=== PATIENT | female | born 1950 | race Caucasian/White ===

== ENCOUNTER 2017-11-18 09:09 | Emergency (ER) | payer MEDICARE, MEDICAID ==
[~2017-11-18] VITALS: Ht 160 cm; Wt 142.0 kg
[~2017-11-18 09:09] MED LIST: ACTOS; ACTOS15 MG; ACTOS15 MG PO; ALLP100T PO; AMLO10TA2 PO; AMLO10TA82 PO; AMLO5TAB2; ASP81TEC PO; ASPI-875 PO; ASPI-983 PO; AZIT-21 PO; CALCIUM; D50KC PO; DOXA1TAB2 PO; ERGO50006 PO; FAMO20TA5 PO; FEBU40TA PO; FERR325T18 PO; FURO-125 PO; INSU100C4 SQ; INSU100V13 SQ; INSU100V3; INSU100V3 SC; INSU100V3 SQ; INSU100V5 SQ; INSU100V6; INSU100V6 SQ; LEVO500T80 PO; LISI40TA PO; LORA10CA PO; LORA10TA7 PO; LOVA10TA; LOVA20TA2 PO; LOVA20TA63 PO; METO-272 PO; METO-395 PO; METO100T12 PO; METO50TA7 PO; NF-ESOM40C PO; OXB5T PO; OXB5TCR; OXYB5TAB9 PO; PARI1CAP PO; PARI1CAP3 PO; PEDI18TA2 PO; PIOG15TA2 PO; PIOG15TA22 PO; PIOG15TA9 PO; SERT100T8 PO; SODI650T PO; SODIUM BICARB; SODIUM BICARBONATE PO; VITAMIN D; VITAMIN D 1.25MG PO; [UNRECOGNIZED DRUG - CODE]
[2017-11-18 09:34] LABS: BASOPHILS # (AUTO) 0.1 10^3/uL (0.0-0.1); BASOPHILS % (AUTO) 1 % (0-10); EOSINOPHILS # (AUTO) 0.2 10^3/uL (0.0-0.3); EOSINOPHILS % (AUTO) 2 % (0-10); HEMATOCRIT 36 % (35-52); HEMOGLOBIN 12.2 G/DL (11.5-16.0); LYMPHOCYTES # (AUTO) 2.5 X 10^3 (1.0-4.0); LYMPHOCYTES % (AUTO) 24 % (12-44); MEAN CORPUSCULAR HEMOGLOBIN 31 PG (25-34); MEAN CORPUSCULAR HGB CONC 34 G/DL (32-36); MEAN CORPUSCULAR VOLUME 91 FL (80-99); MEAN PLATELET VOLUME 10.7 FL (7.4-10.4); MONOCYTES % (AUTO) 9 % (0-12); NEUTROPHILS # (AUTO) 6.8 X 10^3 (1.8-7.8); NEUTROPHILS % (AUTO) 64 % (42-75); PLATELET COUNT 196 10^3/uL (130-400); RED BLOOD COUNT 3.91 10^6/uL (4.35-5.85); RED CELL DISTRIBUTION WIDTH 17.2 % (10.0-14.5); WHITE BLOOD COUNT 10.5 10^3/uL (4.3-11.0)
[2017-11-18 09:47] LABS: INR 1.4 (0.8-1.4); PROTHROMBIN TIME PATIENT 16.9 SEC (12.2-14.7)
[2017-11-18 09:56] LABS: ALANINE AMINOTRANSFERASE 14 U/L (0-55); ALBUMIN 3.5 GM/DL (3.2-4.5); ALKALINE PHOSPHATASE 74 U/L (40-136); BILIRUBIN,TOTAL 1.1 MG/DL (0.1-1.0); BUN/CREATININE RATIO 5; CALCIUM 8.4 MG/DL (8.5-10.1); CARBON DIOXIDE 30 MMOL/L (21-32); CHLORIDE 95 MMOL/L (98-107); CREATININE SERUM 1.97 MG/DL (0.60-1.30); GFR ESTIMATED 25; GLUCOSE 256 MG/DL (70-105); MAGNESIUM 1.8 MG/DL (1.8-2.4); POTASSIUM 3.3 MMOL/L (3.6-5.0); SODIUM 134 MMOL/L (135-145); TOTAL PROTEIN 6.1 GM/DL (6.4-8.2)
--- NOTE | 2017-11-18 10:12 | Diagnostic Imaging Report ---
Clinical indication: Patient with chest pain times approximately 1 week with recent worsening through into the night. Exam: Portable chest x-ray upright view. Comparisons: Chest x-ray dated 09/30/2017. Findings: Again seen are mild low lung volumes. There is improved aeration of both lungs. There may be mild bibasilar atelectasis. Otherwise, the lungs are clear. There is no pleural effusion or pneumothorax. Cardiac silhouette is upper limits of normal for portable projection. Pulmonary vasculature is within normal limits. There is interval placement of a vascular access catheter overlying the right chest with tip in the mid superior vena cava. Impression: 1: Interval improved aeration of both lungs with suspected mild bibasilar atelectasis. 2: Interval placement of vascular access catheter overlying the right chest with tip in the mid superior vena cava. 3: Cardiac silhouette is within normal limits for a portable projection. Dictated by: Dictated on workstation # [id number]
--- NOTE | 2017-11-18 10:42 | ED Chest Pain ---
General Chief Complaint: Chest Pain Stated Complaint: CHEST PAIN Nursing Triage Note: pt reports intermittent cp x 1 week. pt reports had episode today that radiated to her back while at dialysis. pt had an hour and a half left of her dialysis treatment. Nursing Sepsis Screen: No Definite Risk Source: patient, old records Exam Limitations: no limitations History of Present Illness Date Seen by Provider: Nov 18, 2017 Time Seen by Provider: 09:10 Initial Comments This 67-year-old woman presents to the emergency room from dialysis where she had worsening chest pain. She has known coronary artery disease and has been having intermittent chest pain for about a week. Dialysis was aborted due to worsening pain. Pain radiates to her jaw and her back. Patient also has a new fistula site on the left upper arm with fani still in place. She has marketed erythema and tenderness around this incision site. There is a very small area on the distal end of that is moist. This was cultured. The erythema at the surgical site started yesterday. She also reports an episode of vomiting associated with chest pain in the past few days. She denies any fever or cough. Dr. Ghosh in [place] as her primary zoogler. Her gerentological physiotherapist is Dr. Perez at [facility] in [place]. Patient was given aspirin 325 mg by EMS. She is not having chest pain on arrival. She has atrial fibrillation and takes Eliquis. She is dependent on supplemental oxygen at 3 L/m. Allergies and Home Medications Allergies Coded Allergies: Iodinated Contrast- Oral and IV Dye (Verified Allergy, Intermediate, ) nalbuphine (Verified Allergy, Intermediate, 11/05/07) pregabalin (Verified Allergy, Intermediate, 11/05/07) valdecoxib (Unverified Allergy, Mild, 12/03/07) iodine (Verified Allergy, Unknown, 03/14/06) sitagliptin (Unverified Allergy, Unknown, HIVES, 09/29/17) Home Medications Amlodipine Besylate 10 Mg Tablet, 10 MG PO DAILY, (Reported) Aspirin 81 Mg Tablet.dr, 81 MG PO DAILY, (Reported) Ergocalciferol (Vitamin D2) 50,000 Unit Capsule, 50,000 UNIT PO Mo, (Reported) Esomeprazole Magnesium 40 Mg Cap, 40 MG PO BID, (Reported) Famotidine 20 Mg Tablet, 20 MG PO DAILY, (Reported) Febuxostat 40 Mg Tablet, 40 MG PO DAILY, (Reported) Furosemide 20 Mg Tablet, 20 MG PO Q48H, (Reported) Insulin Determir 1,000 Units/10 Ml Soln, 53 UNITS SQ DAILY, (Reported) Insulin Determir 1,000 Units/10 Ml Soln, 40 UNITS SQ HS, (Reported) Levofloxacin 500 Mg Tablet, 500 MG PO DAILY, (Reported) FILLED 09/27/17 #7 FOR A 7 DAY THERAPY Loratadine 10 Mg Tablet, 10 MG PO DAILY, (Reported) Lovastatin 20 Mg Tablet, 20 MG PO HS, (Reported) Metoprolol Tartrate 100 Mg Tablet, 100 MG PO BID, (Reported) Oxybutynin Chloride 5 Mg Tablet, 5 MG PO TID, (Reported) Paricalcitol 1 Mcg Capsule, 1 MCG PO DAILY, (Reported) Pedi Mv No.79/Ferrous Fumarate 18 Mg Tab.chew, 18 MG PO DAILY, (Reported) Pioglitazone HCl 15 Mg Tablet, 15 MG PO DAILY, (Reported) Sertraline HCl 100 Mg Tablet, 100 MG PO HS, (Reported) Sodium Bicarbonate 650 Mg Tablet, 1,300 MG PO BID, (Reported) TAKES 2 (650 MG) TABLETS Patient Home Medication List Home Medication List Reviewed: Yes Review of Systems Constitutional: no symptoms reported EENTM: No Symptoms Reported Respiratory: No Symptoms Reported Cardiovascular: See HPI Gastrointestinal: No Symptoms Reported Genitourinary: See HPI Musculoskeletal: no symptoms reported Skin: see HPI Psychiatric/Neurological: No Symptoms Reported Endocrine: No Symptoms Reported Hematologic/Lymphatic: See HPI Past Wdhpxix-[id number]-Woqwld Hx Patient Social History Alcohol Use: Denies Use Recreational Drug Use: No Smoking Status: Never a Smoker Recent Foreign Travel: No Contact w/Someone Who Travel: No Recent Infectious Disease Expo: No Recent Hopitalizations: Yes (been to ER, ) Physical Abuse: No Sexual Abuse: No Mistreated: No Fear: No Immunizations Up To Date Tetanus Booster (TDap): Less than 5yrs PED Vaccines UTD: No Date of Pneumonia Vaccine: Jun 07, 2017 Date of Influenza Vaccine: Jun 07, 2017 Seasonal Allergies Seasonal Allergies: Yes Surgeries History of Surgeries: Yes (back, r knee, carpal tunnel, stent in l kidney, fistula left upper extremity) Surgeries: Abdominal, Bowel Surgery, Brain Shunt, Cardiac, Gallbladder, Neurological, Orthopedic, Renal, Vascular Surgery Respiratory History of Respiratory Disorde: Yes (O2 DEPENDENT AT 3L/NC CONTINUOUSLY) Respiratory Disorders: Asthma, COPD Currently Using CPAP: No Cardiovascular History of Cardiac Disorders: Yes Cardiac Disorders: Atrial Fibrillation, Coronary Artery Disease, High Cholesterol, Hypertension Neurological History of Neurological Disord: Yes Neurological Disorders: Stroke 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 System Hx 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 Disorders: No Sexually Transmitted Disease: No HIV/AIDS: No Female 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 Disorders: 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 Genitourinary History of Genitourinary Disor: Yes (HAS LEFT ARM AV FISTULA) Genitourinary Disorders: Kidney Stones, Renal Failure, Dialysis Gastrointestinal History of Gastrointestinal Di: Yes Gastrointestinal Disorders: Gastroesophageal Reflux, Polyps, Hiatal Hernia Musculoskeletal History of Musculoskeletal Dis: Yes Musculoskeletal Disorders: Degenerate Disk Disease, Arthritis, Back Injury, Chronic Back Pain, Gout Endocrine History of Endocrine Disorders: Yes (MORBID OBESITY) Endocrine Disorders: Diabetes, Insulin dep HEENT History of HEENT Disorders: Yes HEENT Disorders: Cataract, Tinnitis Loss of Vision: Denies Hearing Impairment: Denies Cancer History of Cancer: No Psychosocial History of Psychiatric Problem: Yes Behavioral Health Disorders: Sleep Difficulties, Depression Suicide Risk Score: 0 Integumentary History of Skin or Integumenta: No Blood Transfusions History of Blood Disorders: No Adverse Reaction to a Blood Tr: No Family Medical History Significant Family History: CVA, Diabetes Family Medial History: Cancer 03 FATHER Family history: Cardiovascular disease 03 FATHER 03 FATHER Family history: Diabetes mellitus 09 SISTER Family history: Gastrointestinal disease 03 MOTHER grandson Kidney disease Myocardial infarction Stroke 09 SISTER Physical Exam Vital Signs Vital Signs - First Documented Capillary Refill : Less Than 3 Seconds General Appearance: No Apparent Distress, WD/WN, Obese HEENT: PERRL/EOMI, Normal ENT Inspection Neck: Normal Inspection Respiratory: Lungs Clear, Normal Breath Sounds, No Accessory Muscle Use, No Respiratory Distress Cardiovascular: No Edema, No Murmur, Irregularly Irregular, Tachycardia Gastrointestinal: Non Tender, Soft Extremity: No Pedal Edema, Other (erythema and tenderness around the left upper arm incision with minimal drainage at the distal end. 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 Norm as Tested Skin: Warm/Dry, Erythema (see above) Focused Exam Evaluation Lactate Level Laboratory Tests 11/18/17 09:21: Lactic Acid Level 2.27*H 11/18/17 11:28: Lactic Acid Level 1.54 Lactic Acid Level Laboratory Tests Test 11/18/17 09:21 11/18/17 11:28 Lactic Acid Level 2.27 MMOL/L (0.50-2.00) *H 1.54 MMOL/L (0.50-2.00) Progress/Results/Core Measures Results/Orders Lab Results Laboratory Tests Test 11/18/17 09:21 11/18/17 11:28 Range/Units White Blood Count 10.5 4.3-11.0 10^3/uL Red Blood Count 3.91 L 4.35-5.85 10^6/uL Hemoglobin 12.2 11.5-16.0 G/DL Hematocrit 36 35-52 % Mean Corpuscular Volume 91 80-99 FL Mean Corpuscular Hemoglobin 31 25-34 PG Mean Corpuscular Hemoglobin Concent 34 32-36 G/DL Red Cell Distribution Width 17.2 H 10.0-14.5 % Platelet Count 196 130-400 10^3/uL Mean Platelet Volume 10.7 H 7.4-10.4 FL Neutrophils (%) (Auto) 64 42-75 % Lymphocytes (%) (Auto) 24 12-44 % Monocytes (%) (Auto) 9 0-12 % Eosinophils (%) (Auto) 2 0-10 % Basophils (%) (Auto) 1 0-10 % Neutrophils # (Auto) 6.8 1.8-7.8 X 10^3 Lymphocytes # (Auto) 2.5 1.0-4.0 X 10^3 Monocytes # (Auto) 1.0 0.0-1.0 X 10^3 Eosinophils # (Auto) 0.2 0.0-0.3 10^3/uL Basophils # (Auto) 0.1 0.0-0.1 10^3/uL Prothrombin Time 16.9 H 12.2-14.7 SEC INR Comment 1.4 0.8-1.4 Activated Partial Thromboplast Time 42 H 24-35 SEC Sodium Level 134 L 135-145 MMOL/L Potassium Level 3.3 L 3.6-5.0 MMOL/L Chloride Level 95 L 98-107 MMOL/L Carbon Dioxide Level 30 21-32 MMOL/L Anion Gap 9 5-14 MMOL/L Blood Urea Nitrogen 10 7-18 MG/DL Creatinine 1.97 H 0.60-1.30 MG/DL Estimat Glomerular Filtration Rate 25 BUN/Creatinine Ratio 5 Glucose Level 256 H 70-105 MG/DL Lactic Acid Level 2.27 *H 1.54 0.50-2.00 MMOL/L Calcium Level 8.4 L 8.5-10.1 MG/DL Magnesium Level 1.8 1.8-2.4 MG/DL Total Bilirubin 1.1 H 0.1-1.0 MG/DL Aspartate Amino Transf (AST/SGOT) 20 5-34 U/L Alanine Aminotransferase (ALT/SGPT) 14 0-55 U/L Alkaline Phosphatase 74 40-136 U/L Myoglobin 147.0 H 10.0-92.0 NG/ML Troponin I < 0.30 <0.30 NG/ML C-Reactive Protein High Sensitivity 1.15 H 0.00-0.50 MG/DL Total Protein 6.1 L 6.4-8.2 GM/DL Albumin 3.5 3.2-4.5 GM/DL My Orders Orders - SONDRA POE MD Cbc With Automated Diff (11/18/17:19) Magnesium (11/18/17 09:19) Chest 1 View, Ap/Pa Only (11/18/17:19) Ekg Tracing (11/18/17:19) Cardiac Profile 1 (11/18/17:19) Comprehensive Metabolic Panel (11/18/17 09:19) Myoglobin Serum (11/18/17:19) Protime With Inr (11/18/17:) Partial Thromboplastin Time (11/18/17:19) O2 (11/18/17:19) Monitor-Rhythm Ecg Trace Only (11/18/17:19) Saline Lock/Iv-Start (11/18/17:19) Hs C Reactive Protein (11/18/17:19) Blood Culture (11/18/17 09:19) Wound Culture (11/18/17:19) Lactic Acid Analyzer (11/18/17 09:19) Clindamycin Injection (Cleocin Injection (11/18/17 10:45) Clindamycin Injection (Cleocin Injection (11/18/17 11:15) Clindamycin 900 Mg/50 Ml Ivpb (Cleocin P (11/18/17 11:15) Medications Given in ED Current Medications Medications Dose Ordered Sig/Alfonso Route Start Time Stop Time Status Last Admin Dose Admin Clindamycin Phosphate/Dextrose 50 ml @ 100 mls/hr ONCE ONCE IV 11/18/17 11:15 11/18/17 11:44 DC 11/18/17 11:21 100 MLS/HR Vital Signs/I&O Vital Sign - Last 12Hours 11/18/17 11/18/17 11/18/17 11/18/17 09:33 09:33 09:33 12:51 Temp 97.0 97.1 Pulse 102 65 Resp 14 20 B/P (MAP) 108/80 (89) 139/76 Pulse Ox 98 98 97 O2 Delivery Nasal Cannula Nasal Cannula Nasal Cannula Nasal Cannula O2 Flow Rate 3.00 3.0 2.00 3.00 Blood Pressure Mean: 89 Progress Note : Time: 11:51 Progress Note Chest pain protocol was followed. EKG was negative for ischemia and troponin was negative. Blood cultures were obtained and clindamycin was started for initial treatment of cellulitis in the left upper extremity. Wound culture was collected prior to antibiotics. Patient remained free of chest pain during her ER stay. ECG Initial ECG Impression Date: Nov 18, 2017 Initial ECG Impression Time: 09:19 Initial ECG Rate: 106 Initial ECG Rhythm: A Fib/Flutter Initial ECG Impression: Atrial Fibrillation w/RVR Comment Atrial fibrillation with no acute ST elevation or depression. Mild tachycardia. LVH by automated read. Borderline prolonged QT interval. Diagnostic Imaging Diagonstic Imaging: Xray Plain Films/CT/US/NM/MRI: chest Comments Chest x-ray viewed by me and report reviewed. See report below: NAME: DANELLE GAN [facility] REC#: [id number] PT STATUS: REG ER : 1950 PHYSICIAN: SONDRA POE MD ADMIT DATE: 11/18/17/ER Signed Date of Exam:11/18/17 CHEST 1 VIEW, AP/PA ONLY Clinical indication: Patient with chest pain times approximately 1 week with recent worsening through into the night. Exam: Portable chest x-ray upright view. Comparisons: Chest x-ray dated 09/30/2017. Findings: Again seen are mild low lung volumes. There is improved aeration of both lungs. There may be mild bibasilar atelectasis. Otherwise, the lungs are clear. There is no pleural effusion or pneumothorax. Cardiac silhouette is upper limits of normal for portable projection. Pulmonary vasculature is within normal limits. There is interval placement of a vascular access catheter overlying the right chest with tip in the mid superior vena cava. Impression: 1: Interval improved aeration of both lungs with suspected mild bibasilar atelectasis. 2: Interval placement of vascular access catheter overlying the right chest with tip in the mid superior vena cava. 3: Cardiac silhouette is within normal limits for a portable projection. Dictated by: Dictated on workstation # [id number] Dict: 11/18/17 0949 Trans: 11/18/17 1029 AC [id number] Interpreted by: HAKEEM PEREZ MD Electronically signed by: HAKEEM PEREZ MD 11/18/17 1029 Departure Impression Impression: Primary Impression: Chest pain Qualified Codes: R07.9 - Chest pain, unspecified Additional Impressions: Cellulitis of left arm End stage renal failure on dialysis History of coronary artery disease Atrial fibrillation Qualified Codes: I48.2 - Chronic atrial fibrillation Disposition: 02 XFER SHT-TRM HOSP Condition: Stable Transfer Time Spoke to Accepting Phy: 11:20 Transfer Progress Notes Case reviewed with Dr. Pimentel, hospitalist at [facility] who accepts transfer. Transfer Time: 12:50 Transfer Facility: [facility] Method of Transfer: EMS Departure-Patient Inst. Referrals: [facility] (PCP) Primary Care Physician JOSEP GONG (Family) Primary Care Physician SONDRA POE MD Nov 18, 2017 10:42
[2017-11-18] MEDS ORDERED: CLINDAMYCIN 900 MG/6ML (CLEOCIN) VIAL IV ONE ×2 (10:45→11:15)
[2017-11-18] MEDS ORDERED: CLINDAMYCIN 900 MG/50 ML IVPB 50 ML IV ONE (11:15)
[2017-11-18 12:51] VITALS: BP 139/76
--- OUTSIDE RECORDS SUMMARY | 2017-11-19 04:34 | XMS REPORT ---
Author Author JOSEP GONG [facility] Address [address] [place] [address] Care Team Providers Care Line Walker Name Role Phone GNOGJOSEP ARNETT Unavailable PROBLEMS Type Condition ICD9-CM Code KHH31-HT Code Onset Dates Condition Status SNOMED Code Problem Type 2 diabetes mellitus with diabetic nephropathy E11.21 Active 946738925 Problem Chronic obstructive pulmonary disease with acute exacerbation J44.1 Active 689151799 Problem Chronic bronchitis, unspecified chronic bronchitis type J42 Active 52891745 Problem Paroxysmal atrial fibrillation I48.0 Active 129535526 Problem Sprain of right knee, unspecified ligament, initial encounter S83.91XA Active 51889225 Problem Chronic congestive heart failure, unspecified heart failure type I50.9 Active 12363431 Problem Abscess L02.91 Active 453597113 Problem Venous (peripheral) insufficiency I87.2 Active 24074015 Problem Chronic obstructive pulmonary disease, unspecified COPD type J44.9 Active 24692908 Problem Vitamin D deficiency, unspecified E55.9 Active 92839414 Problem Body mass index (BMI) of 40.0-44.9 in adult Z68.41 Active 709401134 Problem Obesity, unspecified E66.9 Active 07769956712928 Problem Essential hypertension I10 Active 72494349 Problem Hyperlipidemia, unspecified E78.5 Active 64779002 Problem Right knee pain M25.561 Active 13393001 Problem Type 2 diabetes mellitus with other diabetic kidney complication E11.29 Active 901523732 Problem Anemia of renal disease D63.1 Active 133843008 Problem Proteinuria R80.9 Active 94602287 Problem Chronic renal disease, unspecified stage N18.9 Active 237681026 Problem Renal osteodystrophy N25.0 Active 79118933 Problem Chronic kidney disease, stage IV (severe) N18.4 Active 896178596 Problem Essential (primary) hypertension I10 Active 99206541 ALLERGIES No Information ENCOUNTERS Encounter Location Date Diagnosis [facility] [id number] [place] [address] [id number] Oct, Body mass index (BMI) 70 or greater, adult Z68.45 ; Type 2 diabetes mellitus with other diabetic kidney complication E11.29 ; Chronic obstructive pulmonary disease with acute exacerbation J44.1 and Paroxysmal atrial fibrillation I48.0 [facility] [id number] [place] [address] [id number] Oct, [address] [id number] Oct, Type 2 diabetes mellitus with diabetic nephropathy E11.21 ; Chronic renal disease, unspecified stage N18.9 ; Chronic congestive heart failure, unspecified heart failure type I50.9 and Chronic obstructive pulmonary disease with acute exacerbation J44.[address] [id number] Sep, [address] [id number] Sep, [address] [id number] Sep, [facility] [address] [address] Sep, Type 2 diabetes mellitus with diabetic nephropathy E11.[address] [id number] Aug, Influenza J11.1 and Essential (primary) hypertension I10 [facility] [address] [address] Aug, [address] [id number] Jul, Type 2 diabetes mellitus with diabetic nephropathy E11.21 ; Essential ( primary) hypertension I10 and Chronic obstructive pulmonary disease, unspecified COPD type J44.9 [facility] [id number] [place] [address] [id number] Jun, Dental caries K02.9 [id number] [place] [address] [id number] May, Cough R05 ; Chronic obstructive pulmonary disease, unspecified COPD type J44.9 ; Shortness of breath R06.02 ; Obesity, unspecified E66.9 ; Body mass index (BMI) of 40.0-44.9 in adult Z68.41 and Encounter for immunization Z23 [facility] [address] [id number] May, Dental examination Z01.20 [facility] [id number] [place] [address] [id number] May, Essential hypertension I10 [id number] [place] [address] [id number] Apr, Anemia of renal disease D63.1 ; Type 2 diabetes mellitus with other diabetic kidney complication E11.29 ; Vitamin D deficiency, unspecified E55.9 and Chronic renal disease, unspecified stage N18.9 [facility] [address] [address] Mar, [id number] [place] [address] [id number] Mar, Type 2 diabetes mellitus with other diabetic kidney complication E11.29 ; Essential hypertension I10 ; Chronic renal disease, unspecified stage N18.9 and Chronic obstructive pulmonary disease with acute exacerbation J44.1 [facility] [address] [place] [address] [id number] Feb, [address] [place] [address] [id number] Feb, Chronic renal disease, unspecified stage N18.9 ; Essential (primary) hypertension I10 and Type 2 diabetes mellitus with other diabetic kidney complication E11.29 [facility] [id number] [place] [address] [id number] Feb, Type 2 diabetes mellitus with other diabetic kidney complication E11.29 ; Chronic kidney disease, stage IV (severe) N18.4 ; Renal osteodystrophy N25.0 ; Anemia of renal disease D63.1 and Essential (primary) hypertension I10 [facility] [address] [place] [address] [id number] December, [id number] [place] [address] [id number] December, Chronic obstructive pulmonary disease with acute exacerbation J44.1 ; Essential (primary) hypertension I10 ; Low back pain M54.5 and Right knee pain M25.561 [address] [place] [address] [id number] Nov, Chronic renal disease, unspecified stage N18.9 ; Essential hypertension I10 ; Type 2 diabetes mellitus with other diabetic kidney complication E11.29 and Chronic obstructive pulmonary disease with acute exacerbation J44.1 [id number] [place] [address] [id number] Nov, Chronic renal disease, unspecified stage N18.9 ; Hyperlipidemia, unspecified E78.5 and Essential hypertension I10 [id number] [place] [address] [id number] Oct, Chronic bronchitis, unspecified chronic bronchitis type J42 and Type 2 diabetes mellitus with diabetic nephropathy E11.21 [id number] [place] [address] [id number] Sep, Chronic bronchitis, unspecified chronic bronchitis type J42 ; Essential ( primary) hypertension I10 and Type 2 diabetes mellitus with other diabetic kidney complication E11.29 [address] [place] [address] [id number] Sep, Chronic obstructive pulmonary disease with acute exacerbation J44.1 [address] [place] [address] [id number] Aug, Type 2 diabetes mellitus with diabetic nephropathy E11.21 ; Chronic kidney disease, stage IV (severe) N18.4 ; Essential (primary) hypertension I10 and Encounter for immunization Z23 [address] [place] [address] [id number] Aug, Chronic kidney disease, stage IV (severe) N18.4 ; Type 2 diabetes mellitus with diabetic nephropathy E11.21 and Type 2 diabetes mellitus with hyperglycemia E11.65 [address] [place] [address] [id number] May, Anemia of renal disease D63.1 ; Essential (primary) hypertension I10 ; Renal osteodystrophy N25.0 ; Proteinuria R80.9 ; Chronic kidney disease, stage IV (severe) N18.4 and Type 2 diabetes mellitus with other diabetic kidney complication E11.29 [facility] [id number] [place] [address] [id number] Mar, Type 2 diabetes mellitus with other diabetic kidney complication E11.29 ; Essential hypertension I10 ; Chronic renal disease, unspecified stage N18.9 and TMJ (temporomandibular joint disorder) M26.60 [facility] [place] [id number] [place] [address] [id number] Jan, Chronic kidney disease, stage IV (severe) N18.4 and Hyperlipidemia, unspecified E78.5 [facility] [place] [id number] [place] [address] [id number] December, Type 2 diabetes mellitus with other diabetic kidney complication E11.29 ; Abscess L02.91 and Chronic kidney disease, stage IV (severe) N18.4 [facility] [place] [id number] [place] [address] [id number] December, Abscess L02.91 [facility] [place] [id number] [place] [address] [id number] December, [facility] [id number] [place] [address] [id number] Oct, Renal osteodystrophy N25.0 ; Chronic kidney disease, stage IV (severe) N18.4 and Vitamin D deficiency E55.9 [facility] [id number] [place] [address] [id number] Oct, [facility] [id number] [place] [address] [id number] Sep, Type 2 diabetes mellitus with other diabetic kidney complication E11.29 ; Essential hypertension I10 and Chronic airway obstruction, not elsewhere classified J44.9 [facility] [id number] [place] [address] [id number] Sep, [facility] [id number] [place] [address] [id number] Aug, [facility] [id number] [place] [address] [id number] Jul, [facility] [address] [id number] Jul, [address] [place] [address] [id number] Jul, Chronic kidney disease, stage IV (severe) N18.4 ; Renal osteodystrophy N25.0 and Proteinuria R80.9 [facility] [id number] [address] Jul, [address] [id number] [id number] Jun, [id number] [place] [address] [id number] Jun, [address] [place] [address] [id number] Jun, Diabetes with renal manifestations, type II or unspecified type, uncontrolled 250.42 and Right knee pain M25.561 [id number] [place] [address] May, [address] [place] [address] [id number] May, Abscess L02.91 ; Encounter for immunization Z23 and Sprain of right knee, unspecified ligament, initial encounter S83.91XA [address] [place] [address] [id number] May, Abscess L02.[address] [id number] [id number] May, [address] [place] [address] [id number] Apr, Diabetes with renal manifestations, type II or unspecified type, uncontrolled 250.42 and PPV23 (PNEUMOVAX) DX V03.82 [address] [place] [address] [id number] Mar, [id number] [place] [address] [id number] Mar, Proteinuria 791.0 ; Renal osteodystrophy 588.0 ; Chronic kidney disease, Stage IV (severe) 585.4 ; Benign essential hypertension 401.1 and Vitamin D deficiency 268.9 [facility] [id number] [place] [address] [id number] Feb, Avulsion fracture of ankle 824.8 [facility] [id number] [place] [address] [id number] Feb, [facility] [id number] [place] [address] [id number] Feb, [facility] [address] [id number] Feb, Diabetes with renal manifestations, type II or unspecified type, uncontrolled 250.42 [facility] [id number] [place] [address] [id number] Jan, Diabetes with renal manifestations, type II or unspecified type, uncontrolled 250.42 [facility] [id number] [place] [address] [id number] December, Diabetes with renal manifestations, type II or unspecified type, uncontrolled 250.42 and Unspecified essential hypertension 401.9 [facility] [id number] [place] [address] [id number] December, [facility] [id number] [place] [address] [id number] December, [facility] [id number] [place] [address] [id number] December, Essential hypertension 401.9 [facility] [id number] [place] [address] [id number] Nov, Essential hypertension 401.9 [facility] [id number] [place] [address] [id number] Nov, [facility] [id number] [place] [address] [id number] Nov, [facility] [id number] [place] [address] [id number] Nov, [facility] [id number] [place] [address] [id number] 8853 Nov, [facility] [address] [address] Nov, [facility] [place] [address] [id number] [place] [id number] Oct, [facility] [place] [facility] [address] [id number] [address] Oct, [facility] [place] [address] [id number] [place] [id number] Oct, [facility] [place] [facility] [address] [facility] [id number] [address]- [address] Oct, [facility] [place] [facility] [address] [facility] [id number] [address]- [address] Oct, [facility] [place] [address] [id number] [place] [id number] Oct, [facility] [place] [address] [id number] [place] [id number] Oct, [facility] [place] [facility] [address] [facility] [id number], [place] [address]- [address] Oct, [facility] [place] [facility] [address] [facility] [id number] [address]- [address] Sep, [facility] [place] [address] [id number][place] [id number] Sep, [facility] [place] [address] [id number], [place] [id number] Sep, [facility] [place] [facility] [address] [facility] [id number], [place] [address]- [address] Sep, [facility] [place] [address] [id number], [place] [id number] Aug, [facility] [place] [facility] [address] [facility] [id number] [address]- [address] Aug, [facility] [place] [address] [id number], [place] [id number] Aug, [facility] [place] [facility] [address] [facility] [id number] [address]- 15[address] Aug, [facility] [place] [address] [facility] [id number], [place] [id number] Aug, [facility] [place] [facility] [address] [id number] [address]- [address] Aug, [facility] [place] [facility] [address] [facility] [id number], [place] [address]- 288[address] Aug, [facility] [place] [address] [facility] [id number], [place] [id number] Aug, [facility] [place] [facility] [address] [facility] [id number] [address]- 37[address] Jul, [facility] [place] [facility] [address] [facility] [id number] [address]- 6[address] Jul, [facility] [place] [address] [facility] [id number], [place] [id number] Jul, [facility] [place] [facility] [address], [place] [address]- 47[address] Jul, [facility] [place] [address] [facility] [id number], [place] [id number] Jul, [facility] [place] [facility] [address] [facility] [id number], [place] [address]- 0[address] Jul, [facility] [place] [address] [facility] [id number], [place] [id number] Jul, [facility] [place] [facility] [address] [facility] [id number], [place] [address]- 0696 Jul, [facility] [place] [facility] [address] [facility] [id number] [address]- [address] May, [facility] [address] [id number], [place] [id number] May, [facility] [place] [address] [id number], [place] [id number] May, [facility] [place] [facility] [address] [facility] [id number], [place] [address]- 25[address] May, [facility] [address] [id number], [place] [id number] Apr, [facility] [place] [facility] [address] [facility] [id number], [place] [address]- 28[address] Apr, [facility] [address] [id number] [place] [id number] Mar, [facility] [place] [facility] [address] [facility] [id number] [place] [address]- 5985 Mar, [facility] [place] [facility] [address] [facility] [id number], [place] [address]- 9[address] Mar, [facility] [place] [facility] [address] [facility] [id number] [place] [address]- 1877 Mar, [facility] [address] [id number] [place] [id number] Mar, [facility] [place] [address] [facility] [id number] [place] [id number] Feb, [facility] [place] [facility] [address] [facility] [id number] [address]- 1616 Feb, [facility] [place] [address] [facility] [id number], [place] [id number] Jan, [facility] [place] [facility] [address] [facility] [id number] [place] [address]- 8901 Jan, [facility] [place] [facility] [address] [facility] [id number], [place] [address]- 0492 Jan, [facility] [place] [address] [facility] [id number], [place] [id number] Jan, [facility] [place] [address] [facility] [id number], [place] [id number] Jan, [facility] [place] [facility] [address] [facility] [id number], [place] [address]- 4214 Jan, [facility] [place] [address] [facility] [id number] [place] [id number] December, [facility] [place] [facility] [address] [facility] [id number] [place] [address]- 8726 December, [facility] [place] [facility] [address] [facility] [id number] [address]- 7733 Nov, [facility] [place] [facility] [address] [facility] [id number] [place] [address]- 2546 Nov, [facility] [place] [address] [facility] [id number] [place] [id number] Nov, [facility] [place] [facility] [address] [facility] [id number] [place] [address]- 2546 Nov, [facility] [place] [address] [facility] [id number] [place] [id number] Oct, [facility] [place] [facility] [address] [facility] [id number] [place] [address]- 2546 Oct, [facility] [place] [address] [facility] [id number] [place] [id number] Oct, [facility] [place] [facility] [address] [facility] [id number] [place] [address]- 2546 Oct, [facility] [place] [address] [facility] [id number], [place] [id number] Oct, [facility] [place] [facility] [address] [id number] [address]- 2546 Oct, [facility] [place] [address] [facility] [id number], [place] [id number] Oct, [facility] [place] [facility] [address] [facility] [id number] [address]- 2546 Oct, [facility] [place] [address] [facility] [id number], [place] [id number] Aug, [facility] [place] [facility] [address] [facility] [id number], [place] [address]- 2546 Aug, [facility] [place] [address] [facility] [id number], [place] [id number] Jul, [facility] [place] [facility] [address] [facility] [id number], [place] [address]- 2546 Jul, [facility] [place] [address] [facility] [id number], [place] [id number] Jun, [facility] [place] [facility] [address] [id number] [address]- 25[address] Jun, [facility] [place] [facility] [address] [facility] [id number], [place] [address]- 2546 Jun, [facility] [address] [facility] [id number] [place] [id number] Jun, [facility] [place] [address] [facility] [id number], [place] [id number] May, [facility] [place] [facility] [address] [facility] [id number] [place] [address]- 8376 May, [facility] [place] [facility] [address] [facility] [id number], [place] [address]- 3116 May, [facility] [address] [facility] [id number] [place] [id number] May, [facility] [place] [facility] [address] [id number], [place] [address] 2546 May, [facility] [address] [id number], [place] [id number] May, [facility] [place] [facility] [address] [facility] [id number], [place] [address]- 6376 May, [facility] [address] [id number], [place] [id number] May, [facility] [place] [facility] [address] [id number] [address]- 8106 Apr, [facility] [place] [facility] [address] [facility] [id number], [place] [address]- 5326 Apr, [facility] [address] [facility] [id number], [place] [id number] Apr, [facility] [place] [facility] [address] [facility] [id number] [address]- 2546 Apr, [facility] [place] [facility] [address] [facility] [id number], [place] [address]- 2546 Mar, [facility] [address] [facility] [id number], [place] [id number] Mar, [facility] [address] [facility] [id number], [place] [id number] Feb, [facility] [place] [address] [id number] [place] [id number] Feb, [facility] [place] [address] [id number] [place] [id number] Feb, [facility] [address] [id number] [place] [id number] Jan, [facility] [address] [facility] [id number] [place] [address]- 2062 Jan, [facility] [address] [id number] [place] [id number] Jan, [facility] [address] [id number] [place] [id number] December, [facility] [address] [facility] [id number] [place] [address]- 5301 December, [facility] [address] [id number] [place] [id number] December, [facility] [address] [id number] [place] [id number] December, [facility] [address] [id number] [place] [id number] Nov, [facility] [address] [id number] [place] [id number] Nov, [facility] [address] [facility] [id number] [place] [address]- 1704 Nov, [facility] [address] [id number] [place] [id number] Nov, [facility] [address] [id number] [place] [id number] Oct, [facility] [place] [address] [id number] [place] [id number] Oct, [facility] [address] [id number] [place] [id number] Oct, [facility] [address] [id number] [place] [id number] Oct, [facility] [address] [id number], [place] [id number] Sep, [facility] [address] [id number] [place] [id number] Sep, [facility] [place] [facility] [address] [facility] [id number][place] [address]- 9600 Aug, [facility] [place] [address] [facility] [id number], [place] [address] Aug, [facility] [address] [id number] [place] [id number] Aug, [facility] [address] [id number] [place] [id number] Aug, [facility] [address] [id number] [place] [id number] Jul, [facility] [address] [id number] [place] [id number] Jul, [facility] [id number] [address] Jul, [facility] [address] [facility] [id number] [id number] Jul, [facility] [address] [id number] [place] [id number] Jul, [facility] [id number], [place] [address] Jul, [facility] [address] [facility] [id number][place] [id number] Jul, [facility] [address] [facility] [id number], [place] [address] Jul, [facility] [address] [facility] [id number][place] [id number] Jul, [facility] [address] [id number][place] [id number] Jul, [facility] [address] [facility] [id number][place] [id number] Jul, [facility] [address] [facility] [id number] [place] [address] Jul, [facility] [address] [id number] [place] [id number] Jun, [facility] [place] [facility] [address] [facility] [id number] [address] Jun, [facility] [place] [facility] [address] [facility] [id number], [place] [address] Jun, [facility] [place] [address] [id number][place] [id number] Jun, [facility] [place] [facility] [address] [facility] [place] [id number], [place] [address] Jun, [facility] [place] [facility] [address] [facility] [id number][place] [address] Jun, [facility] [place] [address] [facility] [id number][place] [id number] Jun, [facility] [place] [facility] [address]00565[address], [place] [address] Jun, [facility] [place] [address] [id number], [place] [id number] Jun, [facility] [place] [facility] [address]00565[address], [place] [address] Jun, [facility] [place] [address] [id number][place] [id number] May, [facility] [place] [facility] [address]00565[address], [place] [address] Apr, [facility] [place] [facility] [address] [facility] [id number], [place] [address] Apr, [facility] [place] [address] [id number], [place] [id number] Apr, [facility] [place] [address] [id number], [place] [id number] Apr, [facility] [place] [address] [id number], [place] [id number] 18 Apr, 2012 [facility] [place] [address] [id number], [place] [address] Apr, [facility] [place] [address] [id number] [place] [id number] Apr, [facility] [place] [address] [id number] [place] [id number] Mar, [facility] [place] [address] [id number] [place] [id number] Mar, [facility] [place] [address] [id number] [place] [id number] Mar, [facility] [place] [address] [id number] [place] [id number] Mar, [facility] [place] [address] [id number] [place] [id number] Mar, [facility] [place] [address] [id number] [place] [id number] Mar, [facility] [place] [address] [id number] [place] [id number] Mar, [facility] [place] [address] [id number] [place] [address] Feb, [facility] [address] [id number] [place] [id number] Feb, [facility] [place] [address] [id number] [place] [address] Jan, [facility] [place] [address] [id number] [place] [id number] Jan, [facility] [place] [address] [id number] [place] [id number] Jan, [facility] [place] [address] [id number] [place] [id number] Jan, [facility] [place] [address] [id number] [place] [address] Jan, [facility] [place] [address] [id number] [place] [id number] Jan, [facility] [place] [address] [id number] [place] [id number] December, [facility] [place] [address] [id number] [place] [id number] Nov, [facility] [place] [address] [id number] [place] [id number] Oct, [facility] [place] [address] [id number] [place] [id number] Oct, [facility] [place] [address] [id number] [place] [id number] Oct, [facility] [address] [facility] [place] [id number], [place] [address] Oct, [facility] [place] [address] [id number] [place] [id number] Oct, [facility] [place] [address] [id number] [place] [id number] Oct, [facility] [place] [address] [id number] [place] [id number] Oct, [facility] [address] [id number] [place] [id number] Oct, [facility] [place] [address] [id number] [place] [id number] Oct, [facility] [place] [address] [id number] [place] [id number] Oct, [facility] [address] [id number] [place] [id number] 14 Sep, 2011 [facility] [address]00565100[place] [address] Sep, [facility] [place] [address] [id number] [place] [id number] Sep, [facility] [place] [address] [id number] [place] [id number] Aug, [facility] [place] [address] [id number] [place] [id number] Aug, [facility] [place] [address] [id number] [place] [id number] Aug, [facility] [id number], [place] [address] Aug, [facility] [address] [address] Jul, [facility] [place] [facility] [address] [id number] [place] [address] 12 Jul, 2011 [facility] [place] [facility] [address] [id number] [place] [address] Jul, [facility] [place] [facility] [address] [id number] [place] [address] Jul, [facility] [place] [facility] [address] [id number] [place] [address] Jun, [facility] [place] [facility] [address] [id number] [place] [address] Jun, [facility] [place] [facility] [address] [id number] [place] [address] May, [facility] [place] [facility] [address] [id number] [place] [address]- 39[address] May, [facility] [place] [facility] [address] [id number] [place] [address] December, [facility] [place] [facility] [address] [id number] [place] [address]- [address] December, [facility] [place] [facility] [address] [id number] [place] [address]- [address] Aug, [facility] [place] [facility] [address] [id number] [place] [address]- [address]14 29 Jul, 2010 [facility] [place] [facility] [address] [id number] [place] [address]- [address]30 28 Jul, 2010 [facility] [place] [facility] [address] [id number] [place] [address]- 1665 23 Jul, 2010 [facility] [place] [facility] [address] [id number] [place] [address]- [address] 16 Jul, 2010 [facility] [place] [facility] [address] [id number] [place] [address]- [address] 16 Jul, 2010 [facility] [place] [facility] [id number] [place] [address] 03 Jul, 2010 [facility] [address] [facility] [id number] [place] [address]- [address] 30 Jun, 2010 [facility] [address] [facility] [id number] [place] [address] 30 Jun, 2010 [facility] [address] [facility] [id number] [place] [address]- [address] 29 Jun, 2010 [facility] [address] [facility] [id number] [place] [address]- 9469 23 Jun, 2010 [facility] [address] [facility] [id number] [place] [address]- [address] Jun, [facility] [address] [facility] [id number] [place] [address]- [address] 14 May, 2010 [facility] [id number] [place] [address] December, [facility] [address] [id number] [place] [address] December, [facility] [id number] [place] [address] 74[address] Oct, [facility] [address] [id number] [address]- [address] 31 Jul, 2009 [facility] [address] [id number] [address] 24 Jul, 2009 [facility] [address] [facility] [id number], [place] [address] 254 Jul, [facility] [address] [id number] [address]- [address] 30 Jun, 2009 [facility] [address] [facility] [id number], [place] [address]- [address]67 22 May, 2009 [facility] [address] [id number], [place] [address]- [address] 28 Jun, 2008 IMMUNIZATIONS No Known Immunizations SOCIAL HISTORY Never Assessed REASON FOR VISIT Labs for kidney doctor. milton Ann PLAN OF CARE Activity Details Pending Test PHOSPHORUS VITAL SIGNS MEDICATIONS No Known Medications RESULTS No Results PROCEDURES Procedure Date Ordered Result Body Site GLYCATED HEMOGLOBIN TEST February 20, 2017 LAB NOT BILLED BY [facility] February 20, 2017 VENIPUNCT, ROUTINE* February 20, 2017 INSTRUCTIONS MEDICATIONS ADMINISTERED No Known Medications MEDICAL (GENERAL) HISTORY Type Description Date Medical History Diabetes with renal manifestations, type II or unspecified type, uncontrolled Medical History Unspecified vitamin D deficiency Medical History Chronic airway obstruction, not elsewhere classified Medical History Depressive disorder, not elsewhere classified Medical History Major depressive disorder, recurrent episode, moderate Medical History Unspecified venous (peripheral) insufficiency Medical History Unspecified essential hypertension Medical History stroke--2005 Medical History acid reflux Medical History Chronic kidney disease, stage 4--left ureteric stent placement Medical History vitamin D deficiency Medical History Hyperparathyroidism--DX: 07/02 Medical History chronic pain--Back Medical History Pneumococcal inj--2011 Medical History a-fib Surgical History cholecystectomy 1999 Surgical History colectomy--partial (Dr. Gonzales) for polyps 2008 Surgical History carpal tunnel release--bilateral 1994 Surgical History orthopedic surgery--right knee 2007 Surgical History Back surgery x 2 1986, 2007 Surgical History Left ureteric stent placement due to kidney disease 2011 Surgical History central line placement 09/2017 Hospitalization History surgeries, childbirth Hospitalization History [facility] N/V/D 05/2015 Hospitalization History [facility] influenza 08/2017 Hospitalization History CHF exacerbation 08/2017
--- OUTSIDE RECORDS SUMMARY | 2017-11-19 04:36 | XMS REPORT | Continuity of Care Document ---
Author Author [facility] Organization [facility] Address Unknown Phone Unavailable Allergies Active Description Code Type Severity Reaction Onset Reported/Identified Relationship to Patient Clinical Status Yes iodine [id number] Drug Allergy Unknown N/A 03/14/2006 Yes Iodinated Contrast- Oral and IV Dye [id number] Drug Allergy Moderate N/A Yes nalbuphine [id number] Drug Allergy Moderate N/A 11/05/2007 Yes pregabalin [id number] Drug Allergy Moderate N/A 11/05/2007 Yes valdecoxib [id number] Drug Allergy Mild N/A 12/03/2007 Yes sitagliptin [id number] Drug Allergy Unknown HIVES 09/29/2017 Medications There is no data. Problems Date Dx Coded Attending Type Code Diagnosis Diagnosed By 10/15/2010 Ot 250.00 DIAB LYN WO COMPL, TYPE II OR UNSPEC TY 10/15/2010 Ot 530.19 OTHER ESOPHAGITIS 10/15/2010 Ot 530.3 ESOPHAGEAL STRICTURE 10/15/2010 Ot 553.3 DIAPHRAGMATIC HERNIA 10/15/2010 Ot 585.9 CHRONIC KIDNEY DISEASE, UNSPECIFIED 10/15/2010 Ot 786.50 CHEST PAIN NOS 10/15/2010 Ot 935.1 FOREIGN BODY ESOPHAGUS 10/15/2010 Ot E000.8 OTHER EXTERNAL CAUSE STATUS 10/15/2010 Ot E849.0 ACCIDENT IN HOME 10/15/2010 Ot E915 FB ENTERING OTH ORIFICE 10/15/2010 Ot V58.67 LONG-TERM ( CURRENT) USE OF INSULIN 10/15/2010 Ot V58.69 OT MED,LT, CURRENT USE 01/10/2012 Ot 530.3 ESOPHAGEAL STRICTURE 01/10/2012 Ot 935.1 FOREIGN BODY ESOPHAGUS 01/10/2012 Ot E000.8 OTHER EXTERNAL CAUSE STATUS 01/10/2012 Ot E849.0 ACCIDENT IN HOME 01/10/2012 Ot E915 FB ENTERING OTH ORIFICE 06/26/2013 MONI BURGOS FACC, ALI FACP CCDS Ot 250.40 DIAB W RENAL MANIFEST, TYPE II OR UNSPEC 06/26/2013 MONI BURGOS FACJack, ALI FACP CCDS Ot 414.01 CORONARY ATHEROSCLEROSIS OF [place] CORON 06/26/2013 MONI BURGOS FACC, SHANNON FACP CCDS Ot 583.81 NEPHRITIS NOS IN OTH DIS 06/26/2013 MONI BURGOS FACC, ALI FACP CCDS Ot 585.9 CHRONIC KIDNEY DISEASE, UNSPECIFIED 06/26/2013 MONI BURGOS FACC, ALI FACP CCDS Ot 786.59 CHEST PAIN NEC 06/26/2013 MONI BURGOS FACC, SHANNON FACP CCDS Ot V58.67 LONG-TERM (CURRENT) USE OF INSULIN 06/26/2013 MONI BURGOS FACC, SHANNON GONSALESP CCDS Ot V58.69 [facility] MED,LT,CURRENT USE 02/28/2014 AMEYA MCCOY MD Ot 250.60 DIAB W NEURO MANIFEST, TYPE II OR UNSPEC 02/28/2014 AMEYA MCCOY MD Ot 272.4 HYPERLIPIDEMIA NEC/NOS 02/28/2014 AMEYA MCCOY MD Ot 274.9 GOUT NOS 02/28/2014 AMEYA MCCOY MD Ot 397.0 TRICUSPID VALVE DISEASE 02/28/2014 AMEYA MCCOY MD Ot 403.90 HYPTNSV CHR KID DIS, UNSPEC, W CHR KD ST 02/28/2014 AMEYA MCCOY MD Ot 414.01 CORONARY ATHEROSCLEROSIS OF [place] CORON 02/28/2014 AMEYA MCCOY MD Ot 424.0 MITRAL VALVE DISORDER 02/28/2014 AMEYA MCCOY MD Ot 530.81 ESOPHAGEAL REFLUX 02/28/2014 AMEYA MCCOY MD Ot 536.3 GASTROPARESIS 02/28/2014 AMEYA MCCOY MD Ot 553.3 DIAPHRAGMATIC HERNIA 02/28/2014 AMEYA MCCOY MD Ot 558.9 NONINF GASTROENTERIT NEC 02/28/2014 AMEYA MCCOY MD Ot 585.4 CHRONIC KIDNEY DISEASE, STAGE IV (SEVERE 02/28/2014 AMEYA MCCOY MD Ot 596.51 HYPERTONICITY OF BLADDER 02/28/2014 AMEYA MCCOY MD Ot 716.90 ARTHROPATHY NOS-UNSPEC 02/28/2014 AMEYA MCCOY MD Ot 786.09 RESPIRATORY ABNORM NEC 02/28/2014 AMEYA MCCOY MD, Ot 786.59 CHEST PAIN NEC 02/28/2014 AMEYA MCCOY MD Ot V45.11 RENAL DIALYSIS STATUS 02/28/2014 AMEYA MCCOY MD, Ot V58.67 LONG-TERM (CURRENT) USE OF INSULIN 09/29/2017 SANDER MERLENE L GOLF COURSE MANAGER Ot 786.50 CHEST PAIN NOS 09/29/2017 BAIMA, MERLENE L GOLF COURSE MANAGER Ot 786.50 CHEST PAIN NOS 09/29/2017 SANDER, MERLENE L GOLF COURSE MANAGER Ot 585.9 CHRONIC KIDNEY DISEASE, UNSPECIFIED 09/29/2017 JCARLOSMA, MERLENE L GOLF COURSE MANAGER Ot 786.09 RESPIRATORY ABNORM NEC 09/29/2017 JCARLOSMA, MERLENE L GOLF COURSE MANAGER Ot 786.2 COUGH 09/29/2017 JCARLOSMA, MERLENE L GOLF COURSE MANAGER Ot 403.90 HYPTNSV CHR KID DIS, UNSPEC, W CHR KD ST 09/29/2017 SANDER MERLENE L GOLF COURSE MANAGER Ot 414.00 CORON ATHEROSCLER NOS TYPE VESSEL, NATIV 09/29/2017 SANDER MERLENE L GOLF COURSE MANAGER Ot 585.9 CHRONIC KIDNEY DISEASE, UNSPECIFIED 09/29/2017 JCARLOSMA MERLENE L GOLF COURSE MANAGER Ot 786.09 RESPIRATORY ABNORM NEC 09/29/2017 SANDER MERLENE L GOLF COURSE MANAGER Ot 786.2 COUGH 10/02/2017 AFRICA AMAYA MD Ot E11.9 TYPE 2 DIABETES MELLITUS WITHOUT COMPLIC 10/02/2017 AFRICA AMAYA MD, Ot E66.01 MORBID (SEVERE) OBESITY DUE TO EXCESS CA 10/02/2017 AFRICA AMAYA MD, Ot E78.5 HYPERLIPIDEMIA, UNSPECIFIED 10/02/2017 AFRICA AMAYA MD, Ot E83.41 HYPERMAGNESEMIA 10/02/2017 AFRICA AMAYA MD, Ot I12.9 HYPERTENSIVE CHRONIC KIDNEY DISEASE W ST 10/02/2017 AFRICA AMAYA MD, Ot I25.10 ATHSCL HEART DISEASE OF [place] CORONARY 10/02/2017 AFRICA AMAYA MD, Ot I48.91 UNSPECIFIED ATRIAL FIBRILLATION 10/02/2017 AFRICA AMAYA MD, Ot I50.33 ACUTE ON CHRONIC DIASTOLIC (CONGESTIVE) 10/02/2017 AFRICA AMAYA MD, Ot J44.1 CHRONIC OBSTRUCTIVE PULMONARY DISEASE W 10/02/2017 AFRICA AMAYA MD, Ot J96.00 ACUTE RESPIRATORY FAILURE, UNSP W HYPOXI 10/02/2017 AFRICA AMAYA MD, Ot K21.9 GASTRO-ESOPHAGEAL REFLUX DISEASE WITHOUT 10/02/2017 AFRICA AMAYA MD, Ot K44.9 DIAPHRAGMATIC HERNIA WITHOUT OBSTRUCTION 10/02/2017 AFRICA AMAYA MD, Ot N17.9 ACUTE KIDNEY FAILURE, UNSPECIFIED 10/02/2017 AFRICA AMAYA MD, Ot N18.4 CHRONIC KIDNEY DISEASE, STAGE 4 (SEVERE) 10/02/2017 AFRICA AMAYA MD, Ot Z68.43 BODY MASS INDEX (BMI) 50-59.9 , ADULT 10/02/2017 AFRICA AMAYA MD, Ot Z79.4 SCREW MACHINE HAND (CURRENT) USE OF INSULIN 10/02/2017 AFRICA AMAYA MD, Ot Z99.81 DEPENDENCE ON SUPPLEMENTAL OXYGEN Procedures There is no data. Results Test Result Range A1C - 05/15/17 08:44 HEMOGLOBIN A1c 5.7 % of total Hgb <5.7 PTH (INTACT) - 05/15/17 08:44 CALCIUM 8.8 mg/dL 8.6-10.4 PARATHYROID HORMONE, INTACT 72 pg/mL 14-64 Complete blood count (CBC) with automated white blood cell (WBC) differential - 09/29/17 17:55 Blood leukocytes automated count (number/volume) 8.5 10*3/uL 4.3-11.0 Blood erythrocytes automated count (number/volume) 4.47 10*6/uL 4.35-5.85 Venous blood hemoglobin measurement (mass/volume) 13.2 g/dL 11.5-16.0 Blood hematocrit (volume fraction) 39 % 35-52 Automated erythrocyte mean corpuscular volume 88 [foz_us] 80-99 Automated erythrocyte mean corpuscular hemoglobin (mass per erythrocyte) 30 pg 25-34 Automated erythrocyte mean corpuscular hemoglobin concentration measurement ( mass/volume) 34 g/dL 32-36 Automated erythrocyte distribution width ratio 15.8 % 10.0-14.5 Automated blood platelet count (count/volume) 206 10*3/uL 130-400 Automated blood platelet mean volume measurement 11.0 [foz_us] 7.4-10.4 Automated blood neutrophils/100 leukocytes 74 % 42-75 Automated blood lymphocytes/100 leukocytes 16 % 12-44 Blood monocytes/100 leukocytes 9 % 0-12 Automated blood eosinophils/100 leukocytes 2 % 0-10 Automated blood basophils/100 leukocytes 0 % 0-10 Blood neutrophils automated count (number/volume) 6.3 10*3 1.8-7.8 Blood lymphocytes automated count (number/volume) 1.3 10*3 1.0-4.0 Blood monocytes automated count (number/volume) 0.8 10*3 0.0-1.0 Automated eosinophil count 0.1 10*3/uL 0.0-0.3 Automated blood basophil count (count/volume) 0.0 10*3/uL 0.0-0.1 PT panel in platelet poor plasma by coagulation assay - 09/29/17 17:55 Prothrombin time (PT) in platelet poor plasma by coagulation assay 13.6 s 12.2-14.7 INR in platelet poor plasma or blood by coagulation assay 1.0 0.8-1.4 Activated partial thromboplastin time (aPTT) in platelet poor plasma bycoagulation assay - 09/29/17 17:55 Activated partial thromboplastin time (aPTT) in platelet poor plasma bycoagulation assay 38 s 24-35 Comprehensive metabolic panel - 09/29/17 17:55 Serum or plasma sodium measurement (moles/volume) 141 mmol/L 135-145 Serum or plasma potassium measurement (moles/volume) 3.8 mmol/L 3.6-5.0 Serum or plasma chloride measurement (moles/volume) 107 mmol/L 98-107 Carbon dioxide 23 mmol/L 21-32 Serum or plasma anion gap determination (moles/volume) 11 mmol/L 5-14 Serum or plasma urea nitrogen measurement (mass/volume) 24 mg/dL 7-18 Serum or plasma creatinine measurement (mass/volume) 2.38 mg/dL 0.60-1.30 Serum or plasma urea nitrogen/creatinine mass ratio 10 NRG Serum or plasma creatinine measurement with calculation of estimated glomerular filtration rate 20 NRG Serum or plasma glucose measurement (mass/volume) 122 mg/dL 70-105 Serum or plasma calcium measurement (mass/volume) 9.3 mg/dL 8.5-10.1 Serum or plasma total bilirubin measurement (mass/volume) 0.7 mg/dL 0.1-1.0 Serum or plasma alkaline phosphatase measurement (enzymatic activity/volume) 74 U/L 40-136 Serum or plasma aspartate aminotransferase measurement (enzymatic activity/ volume) 24 U/L 5-34 Serum or plasma alanine aminotransferase measurement (enzymatic activity/volume ) 12 U/L 0-55 Serum or plasma protein measurement (mass/volume) 7.2 g/dL 6.4-8.2 Serum or plasma albumin measurement (mass/volume) 3.2 g/dL 3.2-4.5 Magnesium - 09/29/17 17:55 Magnesium 1.8 mg/dL 1.8-2.4 Serum or plasma creatine kinase measurement (enzymatic activity/volume) - 09/29 17:55 Serum or plasma creatine kinase measurement (enzymatic activity/volume) 233 U/L 29-168 Serum or plasma creatine kinase MB measurement (enzymatic activity/volume) - 17:55 Serum or plasma creatine kinase MB measurement (enzymatic activity/volume) 3.1 ng/mL <6.6 Serum or plasma lithium measurement (moles/volume) - 09/29/17 17:55 BNP level 560.6 pg/mL <100.0 Serum or plasma troponin i.cardiac measurement (mass/volume) - 09/29/17 17:55 Serum or plasma troponin i.cardiac measurement (mass/volume) < ng/ mL <0.30 Blood lactic acid measurement (moles/volume) - 09/29/17 18:55 Blood lactic acid measurement (moles/volume) 0.74 mmol/L 0.50-2.00 Bacterial blood culture - 09/29/17 18:55 Bacterial blood culture NG NR Bacterial blood culture - 09/29/17 19:21 QUANTITY OF GROWTH . NR Bacterial blood culture SEE COMMEN NR Complete urinalysis with reflex to culture - 09/29/17 20:22 Urine color determination YELLOW NRG Urine clarity determination CLEAR NR Urine pH measurement by test strip 5 5-9 Specific gravity of urine by test strip 1.015 1.016- 1.022 Urine protein assay by test strip, semi-quantitative 4+ NEGATIVE Urine glucose detection by automated test strip 1+ NEGATIVE Erythrocytes detection in urine sediment by light microscopy 4+ NEGATIVE Urine ketones detection by automated test strip NEGATIVE NEGATIVE Urine nitrite detection by test strip NEGATIVE NEGATIVE Urine total bilirubin detection by test strip NEGATIVE NEGATIVE Urine urobilinogen measurement by automated test strip (mass/volume) NORMAL NORMAL Urine leukocyte esterase detection by dipstick NEGATIVE NEGATIVE Automated urine sediment erythrocyte count by microscopy (number/high power field) [HPF] NRG Automated urine sediment leukocyte count by microscopy (number/high power field ) [HPF] NRG Bacteria detection in urine sediment by light microscopy MODERATE NRG Squamous epithelial cells detection in urine sediment by light microscopy 10-25 NRG Crystals detection in urine sediment by light microscopy NONE NRG Casts detection in urine sediment by light microscopy NONE NRG Mucus detection in urine sediment by light microscopy NEGATIVE NRG Complete urinalysis with reflex to culture NO NRG Influenza virus A and B antigen detection - 09/29/17 21:18 FLU RESULT NEGATIVE FOR INFLUENZA A AND B ANTIGENS BY IA NRG Sputum Gram stain - 09/29/17 21:30 GRAM STAIN SPUTUM AND MIXED BACTERIAL SUKHJINDER NRG Bacterial sputum culture - 09/29/17 21:30 Bacterial sputum culture NORMAL NRG Comprehensive metabolic panel - 09/30/17 04:09 Serum or plasma sodium measurement (moles/volume) 136 mmol/L 135-145 Serum or plasma potassium measurement (moles/volume) 3.9 mmol/L 3.6-5.0 Serum or plasma chloride measurement (moles/volume) 107 mmol/L 98-107 Carbon dioxide 15 mmol/L 21-32 Serum or plasma anion gap determination (moles/volume) 14 mmol/L 5-14 Serum or plasma urea nitrogen measurement (mass/volume) 31 mg/dL 7-18 Serum or plasma creatinine measurement (mass/volume) 2.93 mg/dL 0.60-1.30 Serum or plasma urea nitrogen/creatinine mass ratio 11 NRG Serum or plasma creatinine measurement with calculation of estimated glomerular filtration rate 16 NRG Serum or plasma glucose measurement (mass/volume) 440 mg/dL 70-105 Serum or plasma calcium measurement (mass/volume) 8.9 mg/dL 8.5-10.1 Serum or plasma total bilirubin measurement (mass/volume) 0.4 mg/dL 0.1-1.0 Serum or plasma alkaline phosphatase measurement (enzymatic activity/volume) 65 U/L 40-136 Serum or plasma aspartate aminotransferase measurement (enzymatic activity/ volume) 20 U/L 5-34 Serum or plasma alanine aminotransferase measurement (enzymatic activity/volume ) 11 U/L 0-55 Serum or plasma protein measurement (mass/volume) 6.1 g/dL 6.4-8.2 Serum or plasma albumin measurement (mass/volume) 2.8 g/dL 3.2-4.5 Complete blood count (CBC) with automated white blood cell (WBC) differential - 09/30/17 04:09 Blood leukocytes automated count (number/volume) 5.0 10*3/uL 4.3-11.0 Blood erythrocytes automated count (number/volume) 3.97 10*6/uL 4.35-5.85 Venous blood hemoglobin measurement (mass/volume) 11.6 g/dL 11.5-16.0 Blood hematocrit (volume fraction) 35 % 35-52 Automated erythrocyte mean corpuscular volume 88 [foz_us] 80-99 Automated erythrocyte mean corpuscular hemoglobin (mass per erythrocyte) 29 pg 25-34 Automated erythrocyte mean corpuscular hemoglobin concentration measurement ( mass/volume) 33 g/dL 32-36 Automated erythrocyte distribution width ratio 15.4 % 10.0-14.5 Automated blood platelet count (count/volume) 171 10*3/uL 130-400 Automated blood platelet mean volume measurement 10.8 [foz_us] 7.4-10.4 Automated blood neutrophils/100 leukocytes 93 % 42-75 Automated blood lymphocytes/100 leukocytes 5 % 12-44 Blood monocytes/100 leukocytes 1 % 0-12 Automated blood eosinophils/100 leukocytes 0 % 0-10 Automated blood basophils/100 leukocytes 0 % 0-10 Blood neutrophils automated count (number/volume) 4.7 10*3 1.8-7.8 Blood lymphocytes automated count (number/volume) 0.3 10*3 1.0-4.0 Blood monocytes automated count (number/volume) 0.1 10*3 0.0-1.0 Automated eosinophil count 0.0 10*3/uL 0.0-0.3 Automated blood basophil count (count/volume) 0.0 10*3/uL 0.0-0.1 PROCALCITONIN - 09/30/17 04:09 Procalcitonin [mass/volume] in serum or plasma 0.16 % <= 0.10 Capillary blood glucose measurement by glucometer (mass/volume) - 09/30/17 06: 43 Capillary blood glucose measurement by glucometer (mass/volume) 333 mg/dL 70-110 Capillary blood glucose measurement by glucometer (mass/volume) - 09/30/17 08: 05 Capillary blood glucose measurement by glucometer (mass/volume) 323 mg/dL 70-110 Capillary blood glucose measurement by glucometer (mass/volume) - 09/30/17 11: 13 Capillary blood glucose measurement by glucometer (mass/volume) 243 mg/dL 70-110 Arterial blood gas measurement - 09/30/17 11:37 Blood pCO2 35 mm[Hg] 35-45 Blood pO2 63 mm[Hg] 79-93 Arterial blood bicarbonate measurement (moles/volume) 20 mmol/L 23-27 Arterial blood base excess by calculation -4.8 mmol/L - 2.5-2.5 Arterial blood oxygen saturation measurement 95 % 94-100 * Inhaled oxygen flow rate 21% NRG Arterial blood pH measurement with patient temperature correction 7.37 7.37-7.43 Arterial blood carbon dioxide, total measurement (moles/volume) 20.7 mmol/L 21.0-31.0 Body site R RADIAL NRG Assessment of wrist artery patency prior to arterial puncture YES- POS NRG Setting of ventilation mode NO NRG Measurement of body temperature 97.9 NRG Capillary blood glucose measurement by glucometer (mass/volume) - 09/30/17 15: 37 Capillary blood glucose measurement by glucometer (mass/volume) 169 mg/dL 70-110 Capillary blood glucose measurement by glucometer (mass/volume) - 09/30/17 21: 12 Capillary blood glucose measurement by glucometer (mass/volume) 198 mg/dL 70-110 Capillary blood glucose measurement by glucometer (mass/volume) - 10/01/17 00: 53 Capillary blood glucose measurement by glucometer (mass/volume) 191 mg/dL 70-110 Automated blood complete blood count (hemogram) panel - 10/01/17 03:34 Blood leukocytes automated count (number/volume) 9.9 10*3/uL 4.3-11.0 Blood erythrocytes automated count (number/volume) 4.29 10*6/uL 4.35-5.85 Venous blood hemoglobin measurement (mass/volume) 12.6 g/dL 11.5-16.0 Blood hematocrit (volume fraction) 37 % 35-52 Automated erythrocyte mean corpuscular volume 86 [foz_us] 80-99 Automated erythrocyte mean corpuscular hemoglobin (mass per erythrocyte) 29 pg 25-34 Automated erythrocyte mean corpuscular hemoglobin concentration measurement ( mass/volume) 34 g/dL 32-36 Automated erythrocyte distribution width ratio 15.4 % 10.0-14.5 Automated blood platelet count (count/volume) 214 10*3/uL 130-400 Automated blood platelet mean volume measurement 10.3 [foz_us] 7.4-10.4 Comprehensive metabolic panel - 10/01/17 03:34 Serum or plasma sodium measurement (moles/volume) 138 mmol/L 135-145 Serum or plasma potassium measurement (moles/volume) 3.9 mmol/L 3.6-5.0 Serum or plasma chloride measurement (moles/volume) 106 mmol/L 98-107 Carbon dioxide 18 mmol/L 21-32 Serum or plasma anion gap determination (moles/volume) 14 mmol/L 5-14 Serum or plasma urea nitrogen measurement (mass/volume) 44 mg/dL 7-18 Serum or plasma creatinine measurement (mass/volume) 3.57 mg/dL 0.60-1.30 Serum or plasma urea nitrogen/creatinine mass ratio 12 NRG Serum or plasma creatinine measurement with calculation of estimated glomerular filtration rate 13 NRG Serum or plasma glucose measurement (mass/volume) 195 mg/dL 70-105 Serum or plasma calcium measurement (mass/volume) 9.1 mg/dL 8.5-10.1 Serum or plasma total bilirubin measurement (mass/volume) 0.4 mg/dL 0.1-1.0 Serum or plasma alkaline phosphatase measurement (enzymatic activity/volume) 64 U/L 40-136 Serum or plasma aspartate aminotransferase measurement (enzymatic activity/ volume) 20 U/L 5-34 Serum or plasma alanine aminotransferase measurement (enzymatic activity/volume ) 12 U/L 0-55 Serum or plasma protein measurement (mass/volume) 6.8 g/dL 6.4-8.2 Serum or plasma albumin measurement (mass/volume) 3.0 g/dL 3.2-4.5 Magnesium - 10/01/17 03:34 Magnesium 2.5 mg/dL 1.8-2.4 Arterial blood gas measurement - 10/01/17 04:15 Blood pCO2 38 mm[Hg] 35-45 Blood pO2 117 mm[Hg] 79-93 Arterial blood bicarbonate measurement (moles/volume) 21 mmol/L 23-27 Arterial blood base excess by calculation -3.4 mmol/L - 2.5-2.5 Arterial blood oxygen saturation measurement 99 % 94-100 * Inhaled oxygen flow rate 30% NRG Arterial blood pH measurement with patient temperature correction 7.36 7.37-7.43 Arterial blood carbon dioxide, total measurement (moles/volume) 22.6 mmol/L 21.0-31.0 Body site RT BRACHIAL NRG Assessment of wrist artery patency prior to arterial puncture NA NRG Setting of ventilation mode NO NRG Measurement of body temperature 96.1 NRG Capillary blood glucose measurement by glucometer (mass/volume) - 10/01/17 07: 44 Capillary blood glucose measurement by glucometer (mass/volume) 184 mg/dL 70-110 Capillary blood glucose measurement by glucometer (mass/volume) - 10/01/17 11: 22 Capillary blood glucose measurement by glucometer (mass/volume) 184 mg/dL 70-110 Whole blood basic metabolic panel - 10/01/17 15:22 Serum or plasma sodium measurement (moles/volume) 138 mmol/L 135-145 Serum or plasma potassium measurement (moles/volume) 3.6 mmol/L 3.6-5.0 Serum or plasma chloride measurement (moles/volume) 104 mmol/L 98-107 Carbon dioxide 20 mmol/L 21-32 Serum or plasma anion gap determination (moles/volume) 14 mmol/L 5-14 Serum or plasma urea nitrogen measurement (mass/volume) 48 mg/dL 7-18 Serum or plasma creatinine measurement (mass/volume) 3.62 mg/dL 0.60-1.30 Serum or plasma urea nitrogen/creatinine mass ratio 13 NRG Serum or plasma creatinine measurement with calculation of estimated glomerular filtration rate 13 NRG Serum or plasma glucose measurement (mass/volume) 198 mg/dL 70-105 Serum or plasma calcium measurement (mass/volume) 9.2 mg/dL 8.5-10.1 Capillary blood glucose measurement by glucometer (mass/volume) - 10/01/17 15: 26 Capillary blood glucose measurement by glucometer (mass/volume) 193 mg/dL 70-110 Arterial blood gas measurement - 10/01/17 17:30 Blood pCO2 37 mm[Hg] 35-45 Blood pO2 80 mm[Hg] 79-93 Arterial blood bicarbonate measurement (moles/volume) 20 mmol/L 23-27 Arterial blood base excess by calculation -4.6 mmol/L - 2.5-2.5 Arterial blood oxygen saturation measurement 97 % 94-100 * Inhaled oxygen flow rate 20/30% VAPOTHERM NRG Arterial blood pH measurement with patient temperature correction 7.35 7.37-7.43 Arterial blood carbon dioxide, total measurement (moles/volume) 21.1 mmol/L 21.0-31.0 Body site RIGHT RADIAL NRG Assessment of wrist artery patency prior to arterial puncture POSITIVE NRG Setting of ventilation mode NO NRG Measurement of body temperature 98.3 NRG Capillary blood glucose measurement by glucometer (mass/volume) - 10/01/17 20: 03 Capillary blood glucose measurement by glucometer (mass/volume) 268 mg/dL 70-110 Capillary blood glucose measurement by glucometer (mass/volume) - 10/02/17 00: 25 Capillary blood glucose measurement by glucometer (mass/volume) 349 mg/dL 70-110 Capillary blood glucose measurement by glucometer (mass/volume) - 10/02/17 04: 11 Capillary blood glucose measurement by glucometer (mass/volume) 277 mg/dL 70-110 Whole blood basic metabolic panel - 10/02/17 05:27 Serum or plasma sodium measurement (moles/volume) 133 mmol/L 135-145 Serum or plasma potassium measurement (moles/volume) 4.1 mmol/L 3.6-5.0 Serum or plasma chloride measurement (moles/volume) 104 mmol/L 98-107 Carbon dioxide 17 mmol/L 21-32 Serum or plasma anion gap determination (moles/volume) 12 mmol/L 5-14 Serum or plasma urea nitrogen measurement (mass/volume) 56 mg/dL 7-18 Serum or plasma creatinine measurement (mass/volume) 3.73 mg/dL 0.60-1.30 Serum or plasma urea nitrogen/creatinine mass ratio 15 NRG Serum or plasma creatinine measurement with calculation of estimated glomerular filtration rate 12 NRG Serum or plasma glucose measurement (mass/volume) 254 mg/dL 70-105 Serum or plasma calcium measurement (mass/volume) 9.0 mg/dL 8.5-10.1 Magnesium - 10/02/17 05:27 Magnesium 2.1 mg/dL 1.8-2.4 Capillary blood glucose measurement by glucometer (mass/volume) - 10/02/17 08: 07 Capillary blood glucose measurement by glucometer (mass/volume) 186 mg/dL 70-110 Serum or plasma lithium measurement (moles/volume) - 10/02/17 09:55 BNP level 431.6 pg/mL <100.0 Encounters ACCT No. Visit Date/Time Discharge Status Pt. Type Provider Facility Loc./Unit Complaint [id number] 09/30/2017 19:19:00 10/02/2017 11:20:00 DIS Inpatient AFRICA AMAYA MD [facility] ICU COPD EXACERBATION;POSS CHF;POSSIBLE PNEUMONIA [id number] 05/23/2017 15:24:00 05/23/2017 23:59:59 CLS Preadmit ALEX ALLAN DIRECTOR EHS-C [facility] RAD E88.09 HYPALBUMINEMIA [id number] 02/26/2014 17:28:00 02/28/2014 09:00:00 DIS Inpatient AMEYA MCCOY MD [facility] CSD N/V/D [id number] 07/31/2013 12:33:00 07/31/2013 23:59:59 CLS Outpatient BAIMA, MERLENE L GOLF COURSE MANAGER [facility] RT HTN,COUGH,DYSPNEA [id number] 07/10/2013 11:36:00 07/10/2013 23:59:59 CLS Outpatient BAIMA, MERLENE L GOLF COURSE MANAGER [facility] RAD DYSPNEA,COUGH [id number] 07/05/2013 10:13:00 07/05/2013 23:59:59 CLS Outpatient BAIMA, MERLENE L GOLF COURSE MANAGER [facility] LAB CKD [id number] 06/25/2013 07:13:00 06/26/2013 11:25:00 DIS Outpatient MONI BURGOS FACC, SHANNON CHRISTOPHER CCDS [facility] CATH ABN STRESS, ANGINA,SOB,HLP [id number] 06/13/2013 07:38:00 06/13/2013 23:59:59 CLS Outpatient BAIMA, MERLENE L GOLF COURSE MANAGER [facility] RAD CP [id number] 05/17/2013 08:46:00 05/17/2013 23:59:59 CLS Outpatient BAIMA, MERLENE L GOLF COURSE MANAGER [facility] CARD CP [id number] 01/09/2012 21:48:00 Document Registration [id number] 10/14/2010 22:32:00 Document Registration [id number] 11/13/2017 14:20:00 11/13/2017 23:59:59 [facility] Outpatient JOSEP GONG APRN [facility] [id number] 05/15/2017 08:20:00 Document Registration
== END 2017-11-18 12:50 | disposition short-term general hospital (02) ==
LOC: EDUNIT# 09:09 → ER 09:10
DX: R07.9 Chest pain, unspecified (principal); L03.114 Cellulitis of left upper limb; I12.0 Hypertensive chronic kidney disease with stage 5 chronic kidney disease or end stage renal disease; E11.22 Type 2 diabetes mellitus with diabetic chronic kidney disease; N18.6 End stage renal disease; E66.01 Morbid (severe) obesity due to excess calories; J44.9 Chronic obstructive pulmonary disease, unspecified; I48.91 Unspecified atrial fibrillation; E78.00 Pure hypercholesterolemia, unspecified; I25.10 Atherosclerotic heart disease of native coronary artery without angina pectoris; F32.9 Major depressive disorder, single episode, unspecified; G47.9 Sleep disorder, unspecified; K21.9 Gastro-esophageal reflux disease without esophagitis; Z87.19 Personal history of other diseases of the digestive system; Z87.442 Personal history of urinary calculi; Z99.2 Dependence on renal dialysis; Z86.73 Personal history of transient ischemic attack (TIA), and cerebral infarction without residual deficits; Z99.81 Dependence on supplemental oxygen; Z79.01 Long term (current) use of anticoagulants; Z79.82 Long term (current) use of aspirin; Z79.4 Long term (current) use of insulin; Z68.43 Body mass index [BMI] 50.0-59.9, adult; Z91.041 Radiographic dye allergy status; Z88.8 Allergy status to other drugs, medicaments and biological substances; Z88.1 Allergy status to other antibiotic agents
CPT/HCPCS: 36415; 71045; 80053; 83605; 83735; 83874; 84484; 85025; 85610; 85730; 86141; 87040; 87070; 87077; 87186; 87205; 93005; 93041; 96365

== ENCOUNTER 2017-12-05 12:06 | Emergency (ER) | payer MEDICARE, MEDICAID ==
[~2017-12-05] VITALS: Ht 160 cm; Wt 137.4 kg
[~2017-12-05 12:06] MED LIST changes: -PIOG15TA22 PO; +PIOG15TA67 PO
--- OUTSIDE RECORDS SUMMARY | 2017-12-05 12:16 | XMS REPORT ---
Author Author JOSEP GONG [facility] Address [address] [place] [address] Care Team Providers Care Staffing Mgr Name Role Phone GONGJOSEP ARNETT Unavailable PROBLEMS Type Condition ICD9-CM Code RHY11-WE Code Onset Dates Condition Status SNOMED Code Problem Type 2 diabetes mellitus with diabetic nephropathy E11.21 Active 051290293 Problem Chronic obstructive pulmonary disease with acute exacerbation J44.1 Active 576846317 Problem Chronic bronchitis, unspecified chronic bronchitis type J42 Active 40186243 Problem Paroxysmal atrial fibrillation I48.0 Active 835997095 Problem Sprain of right knee, unspecified ligament, initial encounter S83.91XA Active 81239202 Problem Chronic congestive heart failure, unspecified heart failure type I50.9 Active 23900163 Problem Abscess L02.91 Active 936396182 Problem Venous (peripheral) insufficiency I87.2 Active 71390114 Problem Chronic obstructive pulmonary disease, unspecified COPD type J44.9 Active 96863645 Problem Vitamin D deficiency, unspecified E55.9 Active 95757356 Problem Body mass index (BMI) of 40.0-44.9 in adult Z68.41 Active 796706550 Problem Obesity, unspecified E66.9 Active 38545306012902 Problem Essential hypertension I10 Active 97885054 Problem Hyperlipidemia, unspecified E78.5 Active 76272489 Problem Right knee pain M25.561 Active 60851679 Problem Type 2 diabetes mellitus with other diabetic kidney complication E11.29 Active 984460088 Problem Anemia of renal disease D63.1 Active 345373442 Problem Proteinuria R80.9 Active 29594427 Problem Chronic renal disease, unspecified stage N18.9 Active 790781101 Problem Renal osteodystrophy N25.0 Active 00563401 Problem Chronic kidney disease, stage IV (severe) N18.4 Active 473174372 Problem Essential (primary) hypertension I10 Active 91025843 ALLERGIES No Information ENCOUNTERS Encounter Location Date Diagnosis [facility] [id number] [place] [address] [id number] Oct, Body mass index (BMI) 70 or greater, adult Z68.45 ; Type 2 diabetes mellitus with other diabetic kidney complication E11.29 ; Chronic obstructive pulmonary disease with acute exacerbation J44.1 and Paroxysmal atrial fibrillation I48.0 [facility] [id number] [place] [address] [id number] Oct, [address] [id number] Oct, Type 2 diabetes mellitus with diabetic nephropathy E11.21 ; Chronic renal disease, unspecified stage N18.9 ; Chronic congestive heart failure, unspecified heart failure type I50.9 and Chronic obstructive pulmonary disease with acute exacerbation J44.[address] [id number] Sep, [address] [id number] Sep, [address] [id number] Sep, [facility] [address] [address] Sep, Type 2 diabetes mellitus with diabetic nephropathy E11.[address] [id number] Aug, Influenza J11.1 and Essential (primary) hypertension I10 [facility] [address] [address] Aug, [address] [id number] Jul, Type 2 diabetes mellitus with diabetic nephropathy E11.21 ; Essential ( primary) hypertension I10 and Chronic obstructive pulmonary disease, unspecified COPD type J44.9 [facility] [id number] [place] [address] [id number] Jun, Dental caries K02.9 [id number] [place] [address] [id number] May, Cough R05 ; Chronic obstructive pulmonary disease, unspecified COPD type J44.9 ; Shortness of breath R06.02 ; Obesity, unspecified E66.9 ; Body mass index (BMI) of 40.0-44.9 in adult Z68.41 and Encounter for immunization Z23 [facility] [address] [id number] May, Dental examination Z01.20 [facility] [id number] [place] [address] [id number] May, Essential hypertension I10 [id number] [place] [address] [id number] Apr, Anemia of renal disease D63.1 ; Type 2 diabetes mellitus with other diabetic kidney complication E11.29 ; Vitamin D deficiency, unspecified E55.9 and Chronic renal disease, unspecified stage N18.9 [facility] [address] [address] Mar, [id number] [place] [address] [id number] Mar, Type 2 diabetes mellitus with other diabetic kidney complication E11.29 ; Essential hypertension I10 ; Chronic renal disease, unspecified stage N18.9 and Chronic obstructive pulmonary disease with acute exacerbation J44.1 [facility] [address] [place] [address] [id number] Feb, [address] [place] [address] [id number] Feb, Chronic renal disease, unspecified stage N18.9 ; Essential (primary) hypertension I10 and Type 2 diabetes mellitus with other diabetic kidney complication E11.29 [facility] [id number] [place] [address] [id number] Feb, Type 2 diabetes mellitus with other diabetic kidney complication E11.29 ; Chronic kidney disease, stage IV (severe) N18.4 ; Renal osteodystrophy N25.0 ; Anemia of renal disease D63.1 and Essential (primary) hypertension I10 [facility] [address] [place] [address] [id number] December, [id number] [place] [address] [id number] December, Chronic obstructive pulmonary disease with acute exacerbation J44.1 ; Essential (primary) hypertension I10 ; Low back pain M54.5 and Right knee pain M25.561 [address] [place] [address] [id number] Nov, Chronic renal disease, unspecified stage N18.9 ; Essential hypertension I10 ; Type 2 diabetes mellitus with other diabetic kidney complication E11.29 and Chronic obstructive pulmonary disease with acute exacerbation J44.1 [id number] [place] [address] [id number] Nov, Chronic renal disease, unspecified stage N18.9 ; Hyperlipidemia, unspecified E78.5 and Essential hypertension I10 [id number] [place] [address] [id number] Oct, Chronic bronchitis, unspecified chronic bronchitis type J42 and Type 2 diabetes mellitus with diabetic nephropathy E11.21 [id number] [place] [address] [id number] Sep, Chronic bronchitis, unspecified chronic bronchitis type J42 ; Essential ( primary) hypertension I10 and Type 2 diabetes mellitus with other diabetic kidney complication E11.29 [address] [place] [address] [id number] Sep, Chronic obstructive pulmonary disease with acute exacerbation J44.1 [address] [place] [address] [id number] Aug, Type 2 diabetes mellitus with diabetic nephropathy E11.21 ; Chronic kidney disease, stage IV (severe) N18.4 ; Essential (primary) hypertension I10 and Encounter for immunization Z23 [address] [place] [address] [id number] Aug, Chronic kidney disease, stage IV (severe) N18.4 ; Type 2 diabetes mellitus with diabetic nephropathy E11.21 and Type 2 diabetes mellitus with hyperglycemia E11.65 [address] [place] [address] [id number] May, Anemia of renal disease D63.1 ; Essential (primary) hypertension I10 ; Renal osteodystrophy N25.0 ; Proteinuria R80.9 ; Chronic kidney disease, stage IV (severe) N18.4 and Type 2 diabetes mellitus with other diabetic kidney complication E11.29 [facility] [id number] [place] [address] [id number] Mar, Type 2 diabetes mellitus with other diabetic kidney complication E11.29 ; Essential hypertension I10 ; Chronic renal disease, unspecified stage N18.9 and TMJ (temporomandibular joint disorder) M26.60 [facility] [place] [id number] [place] [address] [id number] Jan, Chronic kidney disease, stage IV (severe) N18.4 and Hyperlipidemia, unspecified E78.5 [facility] [place] [id number] [place] [address] [id number] December, Type 2 diabetes mellitus with other diabetic kidney complication E11.29 ; Abscess L02.91 and Chronic kidney disease, stage IV (severe) N18.4 [facility] [place] [id number] [place] [address] [id number] December, Abscess L02.91 [facility] [place] [id number] [place] [address] [id number] December, [facility] [id number] [place] [address] [id number] Oct, Renal osteodystrophy N25.0 ; Chronic kidney disease, stage IV (severe) N18.4 and Vitamin D deficiency E55.9 [facility] [id number] [place] [address] [id number] Oct, [facility] [id number] [place] [address] [id number] Sep, Type 2 diabetes mellitus with other diabetic kidney complication E11.29 ; Essential hypertension I10 and Chronic airway obstruction, not elsewhere classified J44.9 [facility] [id number] [place] [address] [id number] Sep, [facility] [id number] [place] [address] [id number] Aug, [facility] [id number] [place] [address] [id number] Jul, [facility] [address] [id number] Jul, [address] [place] [address] [id number] Jul, Chronic kidney disease, stage IV (severe) N18.4 ; Renal osteodystrophy N25.0 and Proteinuria R80.9 [facility] [address] [id number] [address] Jul, [address] [id number] [id number] Jun, [id number] [place] [address] [id number] Jun, [address] [place] [address] [id number] Jun, Diabetes with renal manifestations, type II or unspecified type, uncontrolled 250.42 and Right knee pain M25.561 [id number] [place] [address] May, [address] [place] [address] [id number] May, Abscess L02.91 ; Encounter for immunization Z23 and Sprain of right knee, unspecified ligament, initial encounter S83.91XA [address] [place] [address] [id number] May, Abscess L02.[address] [id number] [id number] May, [address] [place] [address] [id number] Apr, Diabetes with renal manifestations, type II or unspecified type, uncontrolled 250.42 and PPV23 (PNEUMOVAX) DX V03.82 [address] [place] [address] [id number] Mar, [id number] [place] [address] [id number] Mar, Proteinuria 791.0 ; Renal osteodystrophy 588.0 ; Chronic kidney disease, Stage IV (severe) 585.4 ; Benign essential hypertension 401.1 and Vitamin D deficiency 268.9 [facility] [id number] [place] [address] [id number] Feb, Avulsion fracture of ankle 824.8 [facility] [id number] [place] [address] [id number] Feb, [facility] [id number] [place] [address] [id number] Feb, [facility] [address] [id number] Feb, Diabetes with renal manifestations, type II or unspecified type, uncontrolled 250.42 [facility] [id number] [place] [address] [id number] Jan, Diabetes with renal manifestations, type II or unspecified type, uncontrolled 250.42 [facility] [id number] [place] [address] [id number] December, Diabetes with renal manifestations, type II or unspecified type, uncontrolled 250.42 and Unspecified essential hypertension 401.9 [facility] [id number] [place] [address] [id number] December, [facility] [id number] [place] [address] [id number] December, [facility] [id number] [place] [address] [id number] December, Essential hypertension 401.9 [facility] [id number] [place] [address] [id number] Nov, Essential hypertension 401.9 [facility] [id number] [place] [address] [id number] Nov, [facility] [id number] [place] [address] [id number] Nov, [facility] [id number] [place] [address] [id number] Nov, [facility] [id number] [place] [address] [id number]- [address] Nov, [facility] [address] [address] Nov, [facility] [place] [address] [id number] [place] [id number] Oct, [facility] [place] [facility] [address] [id number] [address] Oct, [facility] [place] [address] [id number] [place] [id number] Oct, [facility] [place] [facility] [address] [facility] [id number] [address]- [address] Oct, [facility] [place] [facility] [address] [facility] [id number] [address]- [address] Oct, [facility] [place] [address] [id number] [place] [id number] Oct, [facility] [place] [address] [id number] [place] [id number] Oct, [facility] [place] [facility] [address] [facility] [id number] [address]- [address] Oct, [facility] [place] [facility] [address] [facility] [id number] [address]- [address] Sep, [facility] [place] [address] [id number][place] [id number] Sep, [facility] [place] [address] [id number][place] [id number] Sep, [facility] [place] [facility] [address] [facility] [id number] [address]- [address] Sep, [facility] [place] [address] [id number][place] [id number] Aug, [facility] [place] [facility] [address] [facility] [id number] [address]- [address] Aug, [facility] [place] [address] [id number][place] [id number] Aug, [facility] [place] [facility] [address] [facility] [id number][place] [address] 67[address] Aug, [facility] [place] [address] [facility] [id number][place] [id number] Aug, [facility] [place] [facility] [address] [id number], [place] [address] Aug, [facility] [place] [facility] [address] [facility] [id number], [place] [address]- 6[address] Aug, [facility] [place] [address] [facility] [id number][place] [id number] Aug, [facility] [place] [facility] [address] [facility] [id number][place] [address]- 1336 Jul, [facility] [place] [facility] [address] [facility] [id number][place] [address] 4[address] Jul, [facility] [place] [address] [facility] [id number][place] [id number] Jul, [facility] [place] [facility] [address], [place] [address] Jul, [facility] [place] [address] [facility] [id number][place] [id number] Jul, [facility] [place] [facility] [address] [facility] [id number][place] [address]- 8766 Jul, [facility] [place] [address] [facility] [id number][place] [id number] Jul, [facility] [place] [facility] [address] [facility] [id number][place] [address]- 98[address] Jul, [facility] [place] [facility] [address] [facility] [id number] [address]- 25[address] May, [facility] [place] [address] [id number][place] [id number] May, [facility] [address] [id number][place] [id number] May, [facility] [place] [facility] [address] [facility] [id number][place] [address] May, [facility] [address] [id number][place] [id number] Apr, [facility] [place] [facility] [address] [facility] [id number], [place] [address] Apr, [facility] [address] [id number] [place] [address] Mar, [facility] [place] [facility] [address] [facility] [id number] [place] [address]- 4[address] Mar, [facility] [place] [facility] [address] [facility] [id number][place] [address]- 2[address] Mar, [facility] [place] [facility] [address] [facility] [id number] [place] [address]- 0249 Mar, [facility] [place] [address] [id number] [place] [id number] Mar, [facility] [place] [address] [facility] [id number] [place] [id number] Feb, [facility] [place] [facility] [address] [facility] [id number][place] [address]- 69[address] Feb, [facility] [place] [address] [facility] [id number][place] [id number] Jan, [facility] [place] [facility] [address] [facility] [id number] [place] [address]- 7144 Jan, [facility] [place] [facility] [address] [facility] [id number], [place] [address]- 8247 Jan, [facility] [place] [address] [facility] [id number][place] 8[address]87[address] Jan, [facility] [address] [facility] [id number][place] [id number] Jan, [facility] [place] [facility] [address] [facility] [id number], [place] [address]- 8629 Jan, [facility] [place] [address] [facility] [id number] [place] [id number] December, [facility] [place] [facility] [address] [facility] [id number] [place] [address]- 3754 December, [facility] [place] [facility] [address] [facility] [id number], [place] [address]- 9205 Nov, [facility] [place] [facility] [address] [facility] [id number] [place] [address]- 2546 Nov, [facility] [place] [address] [facility] [id number] [place] [id number] Nov, [facility] [place] [facility] [address] [facility] [id number] [place] [address]- 2546 Nov, [facility] [place] [address] [facility] [id number] [place] 30527[address] Oct, [facility] [place] [facility] [address] [facility] [id number] [place] [address]- 2546 Oct, [facility] [place] [address] [facility] [id number] [place] [id number] Oct, [facility] [place] [facility] [address] [facility] [id number] [place] [address]- 2546 Oct, [facility] [place] [address] [facility] [id number][place] 469545855 Oct, [facility] [place] [facility] [address] [id number] [address]- 25[address] Oct, [facility] [place] [address] [facility] [id number][place] [id number] Oct, [facility] [place] [facility] [address] [facility] [id number][place] [address]- 2546 Oct, [facility] [address] [facility] [id number], [place] [address]49821286 Aug, [facility] [place] [facility] [address] [facility] [id number], [place] [address]- 2546 Aug, [facility] [place] [address] [facility] [id number], [place] [id number] Jul, [facility] [place] [facility] [address] [facility] [id number], [place] [address]- 2546 Jul, [facility] [address] [facility] [id number], [place] 235091864 Jun, [facility] [place] [facility] [address] [id number] [address]- 25[address] Jun, [facility] [place] [facility] [address] [facility] [id number], [place] [address]- 2546 Jun, [facility] [address] [facility] [id number] [place] [address]86[address] Jun, [facility] [address] [facility] [id number], [place] 775335915 May, [facility] [place] [facility] [address] [facility] [id number] [place] [address]- 9856 May, [facility] [place] [facility] [address] [facility] [id number] [address]- 7236 May, [facility] [place] [address] [facility] [id number] [place] 638684884 May, [facility] [place] [facility] [address] [id number] [address] 2546 May, [facility] [place] [address] [id number] [address]1995 May, [facility] [place] [facility] [address] [facility] [id number][place] [address]- 1976 May, [facility] [address] [id number], [place] [id number] May, [facility] [place] [facility] [address] [id number] [address]- 9506 Apr, [facility] [place] [facility] [address] [facility] [id number][place] [address]- 2976 Apr, [facility] [address] [facility] [id number][place] 402308945 Apr, [facility] [place] [facility] [address] [facility] [id number][place] [address]- 2546 Apr, [facility] [place] [facility] [address] [facility] [id number], [place] [address]- 2546 Mar, [facility] [address] [facility] [id number], [place] 850991231 Mar, [facility] [address] [facility] [id number][place] 033163115 Feb, [facility] [place] [address] [id number] [place] [id number] Feb, [facility] [place] [address] [id number] [place] [id number] Feb, [facility] [place] [address] [id number] [place] [id number] Jan, [facility] [address] [facility] [id number] [place] [address]- 6458 Jan, [facility] [address] [id number] [place] [id number] Jan, [facility] [address] [id number] [place] 515478584 December, [facility] [address] [facility] [id number] [place] [address]- 8506 December, [facility] [address] [id number] [place] 700599116 December, [facility] [address] [id number] [place] 638198487 December, [facility] [address] [id number] [place] 5[address] Nov, [facility] [address] [id number] [place] 190939668 Nov, [facility] [address] [facility] [id number] [place] [address]- 7209 Nov, [facility] [address] [id number] [place] 6150280[address] Nov, [facility] [address] [id number] [place] 7938[address] Oct, [facility] [place] [address] [id number] [place] [id number] Oct, [facility] [address] [id number] [place] 594[address]50[address] Oct, [facility] [address] [id number] [place] 897253046 Oct, [facility] [address] [id number] 6[address]19898 Sep, [facility] [place] [address] [id number] [place] [id number] Sep, [facility] [address] [facility] [id number], [place] [address] Aug, [facility] [address] [facility] [id number][place] [address] Aug, [facility] [place] [address] [id number] [place] [id number] Aug, [facility] [place] [address] [id number] [place] [id number] Aug, [facility] [place] [address] [id number] [place] [id number] Jul, [facility] [place] [address] [id number] [place] [id number] Jul, [facility] [id number] [address] Jul, [facility] [address] [facility] [id number][place] [id number] Jul, [facility] [place] [address] [id number] [place] [id number] Jul, [facility] [id number] [address] Jul, [facility] [place] [address] [facility] [id number] [id number] Jul, [facility] [address] [facility] [id number], [place] [address] Jul, [facility] [address] [facility] [id number][place] [id number] Jul, [facility] [place] [address] [id number] [id number] Jul, [facility] [place] [address] [facility] [id number] [id number] Jul, [facility] [address] [facility] [id number] [place] [address] Jul, [facility] [place] [address] [id number] [place] [id number] Jun, [facility] [address] [facility] [id number], [place] [address] Jun, [facility] [address] [facility] [id number], [place] [address] Jun, [facility] [place] [address] [id number][place] [id number] Jun, [facility] [address] [facility] [id number][place] [address] Jun, [facility] [address] [facility] [id number][place] [address] Jun, [facility] [place] [address] [facility] [id number][place] [id number] Jun, [facility] [id number], [place] [address] Jun, [facility] [place] [address] [id number] [id number] Jun, [facility] [place] [facility] [id number], [place] [address] Jun, [facility] [place] [address] [id number][place] [id number] May, [facility] [place] [facility] [id number], [place] [address] Apr, [facility] [place] [facility] [address] [facility] [id number], [place] [address] Apr, [facility] [place] [address] [id number][place] [id number] Apr, [facility] [address] [id number] [id number] Apr, [facility] [address] [id number][place] [id number] 18 Apr, 2012 [facility] [address] [id number][place] [id number] Apr, [facility] [place] [address] [id number] [place] [id number] Apr, [facility] [place] [address] [id number] [place] [id number] Mar, [facility] [place] [address] [id number] [place] [id number] Mar, [facility] [place] [address] [id number] [place] [id number] Mar, [facility] [place] [address] [id number] [place] [id number] Mar, [facility] [place] [address] [id number] [place] [id number] Mar, [facility] [place] [address] [id number] [place] [id number] Mar, [facility] [place] [address] [id number] [place] [id number] Mar, [facility] [place] [address] [id number] [place] [id number] Feb, [facility] [place] [address] [id number] [place] [id number] Feb, [facility] [place] [address] [id number] [place] [id number] Jan, [facility] [place] [address] [id number] [place] [id number] Jan, [facility] [place] [address] [id number] [place] [id number] Jan, [facility] [place] [address] [id number] [place] [id number] Jan, [facility] [place] [address] [id number] [place] [id number] Jan, [facility] [place] [address] [id number] [place] [id number] Jan, [facility] [place] [address] [id number] [place] [id number] December, [facility] [place] [address] [id number] [place] [id number] Nov, [facility] [place] [address] [id number] [place] [id number] Oct, [facility] [place] [address] [id number] [place] [id number] Oct, [facility] [place] [address] [id number] [place] [id number] Oct, [facility] [address] [facility] [id number], [place] [address] Oct, [facility] [address] [id number] [place] [id number] Oct, [facility] [place] [address] [id number] [place] [id number] Oct, [facility] [place] [address] [id number] [place] [id number] Oct, [facility] [place] [address] [id number] [place] [id number] Oct, [facility] [address] [id number] [place] [id number] Oct, [facility] [place] [address] [id number] [place] [id number] Oct, [facility] [place] [address] [id number] [place] [id number] 14 Sep, 2011 [facility] [id number] [address] Sep, [facility] [place] [address] [id number] [place] [id number] Sep, [facility] [place] [address] [id number] [place] [id number] Aug, [facility] [place] [address] [id number] [place] [id number] Aug, [facility] [place] [address] [id number] [place] [id number] Aug, [facility] [id number] [address] Aug, [facility] [id number] [address] Jul, [facility] [place] [facility] [address] [id number] [place] [address] 12 Jul, 2011 [facility] [place] [facility] [address] [id number] [place] [address] Jul, [facility] [place] [facility] [address] [id number] [place] [address] Jul, [facility] [place] [facility] [address] [id number] [place] [address] Jun, [facility] [place] [facility] [address] [id number] [place] [address] Jun, [facility] [place] [facility] [address] [id number] [place] [address] May, [facility] [place] [facility] [address] [id number] [place] [address] May, [facility] [place] [facility] [address] [id number] [place] [address] December, [facility] [place] [facility] [address] [id number] [place] [address] December, [facility] [place] [facility] [address] [id number] [place] [address] Aug, [facility] [place] [facility] [address] [id number] [place] [address] 29 Jul, 2010 [facility] [place] [facility] [address] [id number] [place] [address] 28 Jul, 2010 [facility] [place] [facility] [address] [id number] [place] [address] 23 Jul, 2010 [facility] [place] [facility] [address] [id number] [place] [address] 16 Jul, 2010 [facility] [place] [facility] [address] [id number] [place] [address] 16 Jul, 2010 [facility] [place] [facility] [id number] [place] [address] 03 Jul, 2010 [facility] [address] [facility] [id number] [place] [address] 30 Jun, 2010 [facility] [address] [facility] [id number] [place] [address] 30 Jun, 2010 [facility] [address] [facility] [id number] [place] [address] 29 Jun, 2010 [facility] [address] [facility] [id number] [place] [address] 23 Jun, 2010 [facility] [address] [facility] [id number] [place] [address] Jun, [facility] [address] [facility] [id number] [place] [address] 14 May, 2010 [facility] [id number] [place] [address] December, [facility] [address] [id number] [address] December, [facility] [id number] [place] [address] Oct, [facility] [id number] [address] 31 Jul, 2009 [facility] [id number], [place] [address] 24 Jul, 2009 [facility] [address] [facility] [id number], [place] [address] Jul, [facility] [id number], [place] [address] 30 Jun, 2009 [facility] [address] [facility] [id number], [place] [address] 22 May, 2009 [facility] [id number], [place] [address] 28 Jun, 2008 IMMUNIZATIONS No Known Immunizations SOCIAL HISTORY Never Assessed REASON FOR VISIT phone call PLAN OF CARE VITAL SIGNS MEDICATIONS Medication Instructions Dosage Frequency Start Date End Date Duration Status Macrobid 100 mg Orally every 12 hrs 1 capsule with food 12h Feb, Feb, 10 days Active RESULTS No Results PROCEDURES No Known procedures INSTRUCTIONS MEDICATIONS ADMINISTERED No Known Medications MEDICAL [...]
--- OUTSIDE RECORDS SUMMARY | 2017-12-05 12:17 | XMS REPORT | Continuity of Care Document ---
Author Author [facility] Organization [facility] Address Unknown Phone Unavailable Allergies Active Description Code Type Severity Reaction Onset Reported/Identified Relationship to Patient Clinical Status Yes iodine [id number] Drug Allergy Unknown N/A 03/14/2006 Yes Iodinated Contrast- Oral and IV Dye [id number] Drug Allergy Moderate N/A Yes nalbuphine [id number] Drug Allergy Moderate N/A 11/05/2007 Yes pregabalin [id number] Drug Allergy Moderate N/A 11/05/2007 Yes valdecoxib [id number] Drug Allergy Mild N/A 12/03/2007 Yes sitagliptin [id number] Drug Allergy Unknown HIVES 09/29/2017 Medications There [...] FACP CCDS Ot 414.01 CORONARY ATHEROSCLEROSIS OF [place] CORON 06/26/2013 MONI BURGOS FACC, SHANNON FACP CCDS Ot 583.81 NEPHRITIS NOS IN OTH DIS 06/26/2013 MONI BURGOS FACC, ALI FACP CCDS Ot 585.9 CHRONIC KIDNEY DISEASE, UNSPECIFIED 06/26/2013 MONI BURGOS FACC, ALI FACP CCDS Ot 786.59 CHEST PAIN NEC 06/26/2013 MONI BURGOS FACC, SHANNON FACP CCDS Ot V58.67 LONG-TERM (CURRENT) USE OF INSULIN 06/26/2013 MONI BURGOS FACC, SHANNON GONSALESP CCDS Ot V58.69 [facility],CURRENT USE 02/28/2014 AMEYA MCCOY MD Ot [...] MCCOY MD Ot 414.01 CORONARY ATHEROSCLEROSIS OF [place] CORON 02/28/2014 AMEYA MCCOY MD Ot 424.0 [...] USE OF INSULIN 09/29/2017 SANDER MERLENE L SALES REPRESENTATIVE RAW FIBERS Ot 786.50 CHEST PAIN NOS 09/29/2017 BAIMA, MERLENE L SALES REPRESENTATIVE [employer] Ot 786.50 CHEST PAIN NOS 09/29/2017 SANDER, MERLENE L SALES REPRESENTATIVE [employer] Ot 585.9 CHRONIC KIDNEY DISEASE, UNSPECIFIED 09/29/2017 JCARLOSMA, MERLENE L SALES REPRESENTATIVE [employer] Ot 786.09 RESPIRATORY ABNORM NEC 09/29/2017 JCARLOSMA, MERLENE L SALES REPRESENTATIVE [employer] Ot 786.2 COUGH 09/29/2017 JCARLOSMA, MERLENE L SALES REPRESENTATIVE [employer] Ot 403.90 HYPTNSV CHR KID DIS, UNSPEC, W CHR KD ST 09/29/2017 SANDER MERLENE L SALES REPRESENTATIVE [employer] Ot 414.00 CORON ATHEROSCLER NOS TYPE VESSEL, NATIV 09/29/2017 SANDER MERLENE L SALES REPRESENTATIVE [employer] Ot 585.9 CHRONIC KIDNEY DISEASE, UNSPECIFIED 09/29/2017 JCARLOSMA MERLENE L SALES REPRESENTATIVE [employer] Ot 786.09 RESPIRATORY ABNORM NEC 09/29/2017 SANDER MERLENE L SALES REPRESENTATIVE [employer] Ot 786.2 COUGH 10/02/2017 AFRICA AMAYA MD Ot E11.9 TYPE 2 DIABETES MELLITUS WITHOUT COMPLIC 10/02/2017 AFRICA AMAYA MD, Ot E66.01 MORBID (SEVERE) OBESITY DUE TO EXCESS CA 10/02/2017 AFRICA AMAYA MD, Ot E78.5 HYPERLIPIDEMIA, UNSPECIFIED 10/02/2017 AFRICA AMAYA MD, Ot E83.41 HYPERMAGNESEMIA 10/02/2017 AFRICA AMAYA MD, Ot I12.9 HYPERTENSIVE CHRONIC KIDNEY DISEASE W ST 10/02/2017 AFRCIA AMAYA MD, Ot I25.10 ATHSCL HEART DISEASE OF [place] CORONARY 10/02/2017 AFRICA AMAYA MD, Ot I48.91 [...] ADULT 10/02/2017 AFRICA AMAYA MD, Ot 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 10/02/2017 AFRICA AMAYA MD, Ot Z99.81 DEPENDENCE ON SUPPLEMENTAL OXYGEN 11/20/2017 SONDRA POE MD Ot E11.22 TYPE 2 DIABETES MELLITUS W DIABETIC DRIVER EXAMINER 11/20/2017 SONDRA POE MD Ot E66.01 MORBID (SEVERE) OBESITY DUE TO EXCESS CA 11/20/2017 SONDRA POE MD Ot E78.00 PURE HYPERCHOLESTEROLEMIA, UNSPECIFIED 11/20/2017 SONDRA POE MD Ot F32.9 MAJOR DEPRESSIVE DISORDER, SINGLE EPISOD 11/20/2017 SONDRA POE MD, Ot G47.9 SLEEP DISORDER, UNSPECIFIED 11/20/2017 SONDRA POE MD Ot I12.0 HYP CHR KIDNEY DISEASE W STAGE 5 CHR KID 11/20/2017 SONDRA POE MD Ot I25.10 ATHSCL HEART DISEASE OF [place] CORONARY 11/20/2017 SONDRA POE MD Ot I48.91 UNSPECIFIED ATRIAL FIBRILLATION 11/20/2017 SONDRA POE MD, Ot J44.9 CHRONIC OBSTRUCTIVE PULMONARY DISEASE, U 11/20/2017 SONDRA POE MD, Ot K21.9 GASTRO-ESOPHAGEAL REFLUX DISEASE WITHOUT 11/20/2017 SONDRA POE MD Ot L03.114 CELLULITIS OF LEFT UPPER LIMB 11/20/2017 SONDRA POE MD Ot N18.6 END STAGE RENAL DISEASE 11/20/2017 SONDRA POE MD, Ot R07.9 CHEST PAIN, UNSPECIFIED 11/20/2017 SONDRA POE MD, Ot Z68.43 BODY MASS INDEX (BMI) 50-59.9 , ADULT 11/20/2017 SONDRA POE MD, Ot Z79.01 [facility] (CURRENT) USE OF ANTICOAGULANT 11/20/2017 SONDRA POE MD, Ot 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 11/20/2017 SONDRA POE MD, Ot Z79.82 [facility] (CURRENT) USE OF ASPIRIN 11/20/2017 SONDRA POE MD, Ot Z86.73 PRSNL HX OF TIA (TIA), AND CEREB INFRC W 11/20/2017 SONDRA POE MD, Ot Z87.19 PERSONAL HISTORY OF OTHER DISEASES OF TH 11/20/2017 SONDRA POE MD, Ot Z87.442 PERSONAL HISTORY OF URINARY CALCULI 11/20/2017 SONDRA POE MD, Ot Z88.1 ALLERGY STATUS TO OTHER ANTIBIOTIC AGENT 11/20/2017 SONDRA POE MD, Ot Z88.8 ALLERGY STATUS TO OTH DRUG/MEDS/BIOL SUB 11/20/2017 SONDRA POE MD, Ot Z91.041 RADIOGRAPHIC DYE ALLERGY STATUS 11/20/2017 SONDRA POE MD, Ot Z99.2 DEPENDENCE ON RENAL DIALYSIS 11/20/2017 SONDRA POE MD, Ot Z99.81 DEPENDENCE ON SUPPLEMENTAL OXYGEN [...] - 09/29/17 18:55 Bacterial blood culture NG NRG Bacterial blood culture - 09/29/17 19:21 QUANTITY OF GROWTH . NRG Bacterial blood culture SEE COMMEN NRG Complete urinalysis with reflex to culture - 09/29/17 20:22 Urine color determination YELLOW NRG Urine clarity determination CLEAR NRG Urine pH measurement by test strip 5 [...] 10/02/17 09:55 BNP level 431.6 pg/mL <100.0 Gram stain microscopy - 11/18/17 09:17 GRAM STAIN RESULT FEW GRAM POSITIVE COCCI RESEMBLING STAPH NRG Bacteria identification in wound by culture - 11/18/17 09:17 Bacteria identification in wound by culture [id number] NRG FREE TEXT EXTERNAL SENSITIVITY REPORTED 11/20/17 8:50 NRG QUANTITY OF GROWTH Scant Growth NRG MRSA AGAR MRSA isolated (Screening test for MRSA is positive) NRG CALL POSITIVES (F1 HELP) CALLED TO ANN-MARIE MENG 11/19/17 16: 50 NRG Bacterial blood culture - 11/18/17 09:17 Bacterial blood culture NG NRG Bacterial susceptibility panel - 11/18/17 09:17 Oxacillin susceptibility test by minimum inhibitory concentration > = NRG Gentamicin susceptibility test by minimum inhibitory concentration < = NRG Clindamycin susceptibility test by minimum inhibitory concentration <= NRG Erythromycin susceptibility test by minimum inhibitory concentration >= NRG Trimethoprim/sulfamethoxazole susceptibility test by minimum inhibitoryconcentration S NRG Vancomycin susceptibility test by minimum inhibitory concentration < = NRG Levofloxacin susceptibility test by minimum inhibitory concentration 0.5 NRG Rifampin susceptibility test by minimum inhibitory concentration <= NRG Tetracycline susceptibility test by minimum inhibitory concentration <= NRG Bacterial susceptibility panel - 11/18/17 09:17 Gentamicin susceptibility test by minimum inhibitory concentration 2 NRG Tobramycin susceptibility test by minimum inhibitory concentration < = NRG Piperacillin/tazobactam susceptibility test by minimum inhibitory concentration S NRG Ciprofloxacin susceptibility test by minimum inhibitory concentration <= NRG Meropenem susceptibility test by minimum inhibitory concentration < = NRG Cefepime susceptibility test by minimum inhibitory concentration 2 NRG Complete blood count (CBC) with automated white blood cell (WBC) differential - 11/18/17 09:21 Blood leukocytes automated count (number/volume) 10.5 10*3/uL 4.3-11.0 Blood erythrocytes automated count (number/volume) 3.91 10*6/uL 4.35-5.85 Venous blood hemoglobin measurement (mass/volume) 12.2 g/dL 11.5-16.0 Blood hematocrit (volume fraction) 36 % 35-52 Automated erythrocyte mean corpuscular volume 91 [foz_us] 80-99 Automated erythrocyte mean corpuscular hemoglobin (mass per erythrocyte) 31 pg 25-34 Automated erythrocyte mean corpuscular hemoglobin concentration measurement ( mass/volume) 34 g/dL 32-36 Automated erythrocyte distribution width ratio 17.2 % 10.0-14.5 Automated blood platelet count (count/volume) 196 10*3/uL 130-400 Automated blood platelet mean volume measurement 10.7 [foz_us] 7.4-10.4 Automated blood neutrophils/100 leukocytes 64 % 42-75 Automated blood lymphocytes/100 leukocytes 24 % 12-44 Blood monocytes/100 leukocytes 9 % 0-12 Automated blood eosinophils/100 leukocytes 2 % 0-10 Automated blood basophils/100 leukocytes 1 % 0-10 Blood neutrophils automated count (number/volume) 6.8 10*3 1.8-7.8 Blood lymphocytes automated count (number/volume) 2.5 10*3 1.0-4.0 Blood monocytes automated count (number/volume) 1.0 10*3 0.0-1.0 Automated eosinophil count 0.2 10*3/uL 0.0-0.3 Automated blood basophil count (count/volume) 0.1 10*3/uL 0.0-0.1 PT panel in platelet poor plasma by coagulation assay - 11/18/17 09:21 Prothrombin time (PT) in platelet poor plasma by coagulation assay 16.9 s 12.2-14.7 INR in platelet poor plasma or blood by coagulation assay 1.4 0.8-1.4 Activated partial thromboplastin time (aPTT) in platelet poor plasma bycoagulation assay - 11/18/17 09:21 Activated partial thromboplastin time (aPTT) in platelet poor plasma bycoagulation assay 42 s 24-35 Comprehensive metabolic panel - 11/18/17 09:21 Serum or plasma sodium measurement (moles/volume) 134 mmol/L 135-145 Serum or plasma potassium measurement (moles/volume) 3.3 mmol/L 3.6-5.0 Serum or plasma chloride measurement (moles/volume) 95 mmol/L 98-107 Carbon dioxide 30 mmol/L 21-32 Serum or plasma anion gap determination (moles/volume) 9 mmol/L 5-14 Serum or plasma urea nitrogen measurement (mass/volume) 10 mg/dL 7-18 Serum or plasma creatinine measurement (mass/volume) 1.97 mg/dL 0.60-1.30 Serum or plasma urea nitrogen/creatinine mass ratio 5 NRG Serum or plasma creatinine measurement with calculation of estimated glomerular filtration rate 25 NRG Serum or plasma glucose measurement (mass/volume) 256 mg/dL 70-105 Serum or plasma calcium measurement (mass/volume) 8.4 mg/dL 8.5-10.1 Serum or plasma total bilirubin measurement (mass/volume) 1.1 mg/dL 0.1-1.0 Serum or plasma alkaline phosphatase measurement (enzymatic activity/volume) 74 U/L 40-136 Serum or plasma aspartate aminotransferase measurement (enzymatic activity/ volume) 20 U/L 5-34 Serum or plasma alanine aminotransferase measurement (enzymatic activity/volume ) 14 U/L 0-55 Serum or plasma protein measurement (mass/volume) 6.1 g/dL 6.4-8.2 Serum or plasma albumin measurement (mass/volume) 3.5 g/dL 3.2-4.5 Magnesium - 11/18/17 09:21 Magnesium 1.8 mg/dL 1.8-2.4 Serum or plasma troponin i.cardiac measurement (mass/volume) - 11/18/17 09:21 Serum or plasma troponin i.cardiac measurement (mass/volume) < ng/ mL <0.30 Myoglobin, serum - 11/18/17 09:21 Myoglobin, serum 147.0 ng/mL 10.0-92.0 Serum or plasma C reactive protein measurement (mass/volume) - 11/18/17 09:21 Serum or plasma C reactive protein measurement (mass/volume) 1.15 mg /dL 0.00-0.50 Blood lactic acid measurement (moles/volume) - 11/18/17 09:21 Blood lactic acid measurement (moles/volume) 2.27 mmol/L 0.50-2.00 Bacterial blood culture - 11/18/17 09:55 Bacterial blood culture NG NRG Serum or plasma lactate measurement (moles/volume) - 11/18/17 11:28 Serum or plasma lactate measurement (moles/volume) 1.54 mmol/L 0.50-2.00 Encounters ACCT No. Visit Date/Time Discharge Status Pt. Type Provider Facility Loc./Unit Complaint [id number] 11/18/2017 09:10:00 11/18/2017 12:50:00 DIS Outpatient LUI BURGOS, SONDRA Myrick [facility] ER CHEST PAIN [id number] 09/30/2017 19:19:00 10/02/2017 11:20:00 DIS Inpatient AFRICA AMAYA MD [facility] ICU COPD EXACERBATION;POSS CHF;POSSIBLE PNEUMONIA [id number] 05/23/2017 15:24:00 05/23/2017 23:59:59 CLS Preadmit ALEX ALLAN COMMERCIAL AGENT-C [facility] RAD E88.09 HYPALBUMINEMIA [id number] 02/26/2014 17:28:00 02/28/2014 09:00:00 DIS Inpatient DARIUS BURGOS, AMEYA Cunningham [facility] CSD N/V/D [id number] 07/31/2013 12:33:00 07/31/2013 23:59:59 CLS Outpatient MERLENE BOUCHERP [facility] RT HTN,COUGH,DYSPNEA [id number] 07/10/2013 11:36:00 07/10/2013 23:59:59 CLS Outpatient MERLENE BOUCHER [facility] RAD DYSPNEA,COUGH [id number] 07/05/2013 10:13:00 07/05/2013 23:59:59 CLS Outpatient MERLENE BOUCHER [facility] LAB CKD [id number] 06/25/2013 07:13:00 06/26/2013 11:25:00 DIS Outpatient MONI BURGOS FACC, SHANNON CHRISTOPHER CCDS [facility] CATH ABN STRESS, ANGINA,SOB,HLP [id number] 06/13/2013 07:38:00 06/13/2013 23:59:59 CLS Outpatient MERLENE BOUCHER [facility] RAD CP [id number] 05/17/2013 08:46:00 05/17/2013 23:59:59 CLS Outpatient MERLENE BOUCHER [facility] CARD CP [id number] 01/09/2012 21:48:00 Document Registration [id number] 10/14/2010 22:32:00 Document Registration [id number] 11/13/2017 14:20:00 11/13/2017 23:59:59 CLS Outpatient [id number] 05/15/2017 08:20:00 Document Registration
[2017-12-05 12:43] LABS: BASOPHILS # (AUTO) 0.1 10^3/uL (0.0-0.1); BASOPHILS % (AUTO) 1 % (0-10); EOSINOPHILS # (AUTO) 0.5 10^3/uL (0.0-0.3); EOSINOPHILS % (AUTO) 4 % (0-10); HEMATOCRIT 38 % (35-52); HEMOGLOBIN 12.7 G/DL (11.5-16.0); LYMPHOCYTES # (AUTO) 3.4 X 10^3 (1.0-4.0); LYMPHOCYTES % (AUTO) 25 % (12-44); MEAN CORPUSCULAR HEMOGLOBIN 31 PG (25-34); MEAN CORPUSCULAR HGB CONC 33 G/DL (32-36); MEAN CORPUSCULAR VOLUME 92 FL (80-99); MEAN PLATELET VOLUME 10.7 FL (7.4-10.4); MONOCYTES % (AUTO) 8 % (0-12); NEUTROPHILS # (AUTO) 8.5 X 10^3 (1.8-7.8); NEUTROPHILS % (AUTO) 63 % (42-75); PLATELET COUNT 157 10^3/uL (130-400); RED BLOOD COUNT 4.13 10^6/uL (4.35-5.85); RED CELL DISTRIBUTION WIDTH 17.6 % (10.0-14.5); WHITE BLOOD COUNT 13.5 10^3/uL (4.3-11.0)
[2017-12-05] MEDS ORDERED: RT-ALBUTEROL/IPRATROPIUM 3 ML (DUONEB) VIAL INH ONE (12:45)
[2017-12-05 12:52] LABS: PROTHROMBIN TIME PATIENT 13.7 SEC (12.2-14.7)
[2017-12-05 12:58] LABS: ALANINE AMINOTRANSFERASE 18 U/L (0-55); ALBUMIN 3.8 GM/DL (3.2-4.5); ALKALINE PHOSPHATASE 68 U/L (40-136); BILIRUBIN,TOTAL 1.1 MG/DL (0.1-1.0); BUN/CREATININE RATIO 7; CALCIUM 8.6 MG/DL (8.5-10.1); CARBON DIOXIDE 31 MMOL/L (21-32); CHLORIDE 94 MMOL/L (98-107); CREATININE SERUM 1.92 MG/DL (0.60-1.30); GFR ESTIMATED 26; GLUCOSE 174 MG/DL (70-105); MAGNESIUM 1.7 MG/DL (1.8-2.4); POTASSIUM 3.1 MMOL/L (3.6-5.0); SODIUM 136 MMOL/L (135-145); TOTAL PROTEIN 7.2 GM/DL (6.4-8.2)
[2017-12-05 13:05] LABS: MYOGLOBIN SERUM 183.1 NG/ML (10.0-92.0)
--- NOTE | 2017-12-05 13:05 | Diagnostic Imaging Report ---
PATIENT HISTORY: Shortness of air. TECHNIQUE: Single frontal view of the chest. COMPARISON: 11/18/2017 FINDINGS: The right-sided dual-lumen catheter appears in stable position. There is mild cardiomegaly with moderate central vascular congestion. Lung volumes appear stable. No focal consolidation is seen. There is no pleural effusion or pneumothorax. No acute osseous abnormality is seen. IMPRESSION: Mild cardiomegaly with mild central vascular congestion. No new pulmonary consolidation seen. Dictated by: Dictated on workstation # [id number]
--- NOTE | 2017-12-05 15:01 | ED Chest Pain ---
General Chief Complaint: Respiratory Problems Stated Complaint: SOA COUGH Nursing Triage Note: PATIENT STATES THAT SHE HAS BEEN SOB FOR 1 WEEK. IT HAS WORSENED AND EACH DAY. SHE TAKE ALBUTEROL NAD BREATHING TREATMENTS AT HOME. Nursing Sepsis Screen: No Definite Risk Source: patient Exam Limitations: no limitations History of Present Illness Date Seen by Provider: Dec 05, 2017 Time Seen by Provider: 12:09 Initial Comments This 67-year-old woman presents to the emergency room with complaints of pain in the chest and upper back intermittently for one week. She is on dialysis and finished her dialysis treatment this morning. She reports having associated cough, dizziness and shortness of air. She has some pain with inspiration as well. She is presently on Eliquis for atrial fibrillation. She reports having a recent cardiac catheterization at [facility] and states she has a "5 percent blockage". In October she was evaluated and treated at [facility] for cellulitis of the left upper extremity and is presently on antibiotics. She has had some sweats recently and has felt hot and dizzy. She was feeling this way before dialysis. Patient does have COPD and has some wheezing. She has not been using her nebulizer treatments at home. She is anticoagulated on Eliquis and states a full compliance. She has been having pain that she assumes is "heartburn" or "acid reflux" frequently in recent weeks. Her primary care provider is Carroll Trent at [facility] in [place]. Her application support manager is Dr. Perez. Her research support specialist is Dr. Ghosh. Allergies and Home Medications Allergies Coded Allergies: Iodinated Contrast- Oral and IV Dye (Verified Allergy, Intermediate, ) nalbuphine (Verified Allergy, Intermediate, 11/05/07) pregabalin (Verified Allergy, Intermediate, 11/05/07) valdecoxib (Unverified Allergy, Mild, 12/03/07) iodine (Verified Allergy, Unknown, 03/14/06) sitagliptin (Unverified Allergy, Unknown, HIVES, 09/29/17) Home Medications Amlodipine Besylate 10 Mg Tablet, 10 MG PO DAILY, (Reported) Aspirin 81 Mg Tablet.dr, 81 MG PO DAILY, (Reported) Ergocalciferol (Vitamin D2) 50,000 Unit Capsule, 50,000 UNIT PO Mo, (Reported) Esomeprazole Magnesium 40 Mg Cap, 40 MG PO BID, (Reported) Famotidine 20 Mg Tablet, 20 MG PO DAILY, (Reported) Febuxostat 40 Mg Tablet, 40 MG PO DAILY, (Reported) Furosemide 20 Mg Tablet, 20 MG PO Q48H, (Reported) Insulin Determir 1,000 Units/10 Ml Soln, 53 UNITS SQ DAILY, (Reported) Insulin Determir 1,000 Units/10 Ml Soln, 40 UNITS SQ HS, (Reported) Levofloxacin 500 Mg Tablet, 500 MG PO DAILY, (Reported) FILLED 09/27/17 #7 FOR A 7 DAY THERAPY Loratadine 10 Mg Tablet, 10 MG PO DAILY, (Reported) Lovastatin 20 Mg Tablet, 20 MG PO HS, (Reported) Metoprolol Tartrate 100 Mg Tablet, 100 MG PO BID, (Reported) Oxybutynin Chloride 5 Mg Tablet, 5 MG PO TID, (Reported) Paricalcitol 1 Mcg Capsule, 1 MCG PO DAILY, (Reported) Pedi Mv No.79/Ferrous Fumarate 18 Mg Tab.chew, 18 MG PO DAILY, (Reported) Pioglitazone HCl 15 Mg Tablet, 15 MG PO DAILY, (Reported) Sertraline HCl 100 Mg Tablet, 100 MG PO HS, (Reported) Sodium Bicarbonate 650 Mg Tablet, 1,300 MG PO BID, (Reported) TAKES 2 (650 MG) TABLETS Patient Home Medication List Home Medication List Reviewed: Yes Review of Systems Constitutional: diaphoresis, weakness EENTM: No Symptoms Reported Respiratory: See HPI Cardiovascular: See HPI Gastrointestinal: No Symptoms Reported Genitourinary: No Symptoms Reported Musculoskeletal: no symptoms reported Skin: no symptoms reported Psychiatric/Neurological: No Symptoms Reported Endocrine: No Symptoms Reported Past Nkzeuml-Aatgsc-Urpsbd Hx Patient Social History Alcohol Use: Denies Use Recreational Drug Use: No Smoking Status: Never a Smoker 2nd Hand Smoke Exposure: No Recent Foreign Travel: No Contact w/Someone Who Travel: No Recent Infectious Disease Expo: No Recent Hopitalizations: Yes (been to ER, ) Immunizations Up To Date Tetanus Booster (TDap): Less than 5yrs PED Vaccines UTD: No Date of Pneumonia Vaccine: Jun 07, 2017 Date of Influenza Vaccine: Jun 07, 2017 Seasonal Allergies Seasonal Allergies: Yes Past Medical History Surgeries: Yes Abdominal, Bowel Surgery, Brain Shunt, Cardiac, Gallbladder, Neurological, Orthopedic, Renal, Vascular Surgery Respiratory: Yes (O2 DEPENDENT AT 3L/NC CONTINUOUSLY) Asthma, COPD Currently Using CPAP: No Cardiac: Yes Atrial Fibrillation, Coronary Artery Disease, High Cholesterol, Hypertension Neurological: Yes Stroke 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 Disorders: No Female 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 Disorders: Denies 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 Sexually Transmitted Disease: No HIV/AIDS: No Genitourinary: Yes (HAS LEFT ARM AV FISTULA) Kidney Stones, Renal Failure, Dialysis Gastrointestinal: Yes Gastroesophageal Reflux, Polyps, Hiatal Hernia Musculoskeletal: Yes Degenerate Disk Disease, Arthritis, Back Injury, Chronic Back Pain, Gout Endocrine: Yes (MORBID OBESITY) Diabetes, Insulin dep HEENT: Yes Cataract, Tinnitis Loss of Vision: Denies Hearing Impairment: Denies Cancer: No Psychosocial: Yes Sleep Difficulties, Depression Integumentary: No Blood Disorders: No Adverse Reaction/Blood Tranf: No Family Medical History Cancer 03 FATHER Family history: Cardiovascular disease 03 FATHER 03 FATHER Family history: Diabetes mellitus 09 SISTER Family history: Gastrointestinal disease 03 MOTHER grandson Kidney disease Myocardial infarction Stroke 09 SISTER CVA, Diabetes Physical Exam Vital Signs Vital Signs - First Documented 12/05/17 12/05/17 12:20 12:41 Temp 98.0 Pulse 76 Resp 20 B/P (MAP) 162/82 (108) Pulse Ox 98 O2 Delivery Nasal Cannula O2 Flow Rate 3.00 Capillary Refill : Less Than 3 Seconds General Appearance: No Apparent Distress, WD/WN, Obese HEENT: PERRL/EOMI, Normal ENT Inspection Neck: Normal Inspection Respiratory: No Accessory Muscle Use, No Respiratory Distress; No Crackles; Wheezing Cardiovascular: No Edema, No Murmur, Irregularly Irregular Gastrointestinal: Normal Bowel Sounds, Non Tender, Soft Extremity: Normal Inspection, No Pedal Edema Neurologic/Psychiatric: Alert, Oriented x3, No Motor/Sensory Deficits, Normal Mood/Affect, financial consultant II-XII Norm as Tested Skin: Normal Color, Warm/Dry Other comments Mild tenderness over the central upper back. Progress/Results/Core Measures Lab Results Laboratory Tests Test 12/05/17 12:35 Range/Units White Blood Count 13.5 H 4.3-11.0 10^3/uL Red Blood Count 4.13 L 4.35-5.85 10^6/uL Hemoglobin 12.7 11.5-16.0 G/DL Hematocrit 38 35-52 % Mean Corpuscular Volume 92 80-99 FL Mean Corpuscular Hemoglobin 31 25-34 PG Mean Corpuscular Hemoglobin Concent 33 32-36 G/DL Red Cell Distribution Width 17.6 H 10.0-14.5 % Platelet Count 157 130-400 10^3/uL Mean Platelet Volume 10.7 H 7.4-10.4 FL Neutrophils (%) (Auto) 63 42-75 % Lymphocytes (%) (Auto) 25 12-44 % Monocytes (%) (Auto) 8 0-12 % Eosinophils (%) (Auto) 4 0-10 % Basophils (%) (Auto) 1 0-10 % Neutrophils # (Auto) 8.5 H 1.8-7.8 X 10^3 Lymphocytes # (Auto) 3.4 1.0-4.0 X 10^3 Monocytes # (Auto) 1.0 0.0-1.0 X 10^3 Eosinophils # (Auto) 0.5 H 0.0-0.3 10^3/uL Basophils # (Auto) 0.1 0.0-0.1 10^3/uL Prothrombin Time 13.7 12.2-14.7 SEC INR Comment 1.0 0.8-1.4 Activated Partial Thromboplast Time 28 24-35 SEC Sodium Level 136 135-145 MMOL/L Potassium Level 3.1 L 3.6-5.0 MMOL/L Chloride Level 94 L 98-107 MMOL/L Carbon Dioxide Level 31 21-32 MMOL/L Anion Gap 11 5-14 MMOL/L Blood Urea Nitrogen 14 7-18 MG/DL Creatinine 1.92 H 0.60-1.30 MG/DL Estimat Glomerular Filtration Rate 26 BUN/Creatinine Ratio 7 Glucose Level 174 H 70-105 MG/DL Calcium Level 8.6 8.5-10.1 MG/DL Magnesium Level 1.7 L 1.8-2.4 MG/DL Total Bilirubin 1.1 H 0.1-1.0 MG/DL Aspartate Amino Transf (AST/SGOT) 24 5-34 U/L Alanine Aminotransferase (ALT/SGPT) 18 0-55 U/L Alkaline Phosphatase 68 40-136 U/L Myoglobin 183.1 H 10.0-92.0 NG/ML Troponin I < 0.30 <0.30 NG/ML C-Reactive Protein High Sensitivity 0.49 0.00-0.50 MG/DL Total Protein 7.2 6.4-8.2 GM/DL Albumin 3.8 3.2-4.5 GM/DL My Orders Orders - SONDRA POE MD Cbc With Automated Diff (12/05/17 12:19) Magnesium (12/05/17 12:19) Chest 1 View, Ap/Pa Only (12/05/17 12:19) Ekg Tracing (12/05/17 12:19) Cardiac Profile 1 (12/05/17 12:19) Comprehensive Metabolic Panel (12/05/17 12:19) Myoglobin Serum (12/05/17 12:19) Protime With Inr (12/05/17 12:19) Partial Thromboplastin Time (12/05/17 12:19) O2 (12/05/17 12:19) Monitor-Rhythm Ecg Trace Only (12/05/17 12:) Saline Lock/Iv-Start (12/05/17 12:19) Hs C Reactive Protein (12/05/17 12:19) Albuterol/Ipra Inhalation Soln (Duoneb I (12/05/17 12:45) Aspirin Chewable Tablet (Baby Aspirin Ch (12/05/17 15:30) Nitroglycerin 0.4 Mg Btl 25's (Nitrostat (12/05/17 15:30) Medications Given in ED Current Medications Medications Dose Ordered Sig/Alfonso Route Start Time Stop Time Status Last Admin Dose Admin Albuterol/ Ipratropium 3 ml ONCE ONCE INH 12/05/17 12:45 12/05/17 12:46 DC 12/05/17 12:55 3 ML Aspirin 324 mg ONCE ONCE PO 12/05/17 15:30 12/05/17 15:31 DC 12/05/17 15:29 324 MG Nitroglycerin 0.4 mg UD PRN SL 12/05/17 15:30 12/05/17 16:33 DC 12/05/17 15:30 0.4 MG Vital Signs/I&O 12/05/17 12/05/17 12/05/17 12/05/17 12:20 12:41 12:58 16:30 Temp 98.0 98.0 Pulse 76 76 Resp 20 20 B/P (MAP) 162/82 (108) 162/82 (108) Pulse Ox 98 98 97 97 O2 Delivery Nasal Cannula Room Air Room Air Room Air O2 Flow Rate 3.00 1.00 1.00 Blood Pressure Mean: 108 Progress Note #1: Time: 15:05 Progress Note Cardiopulmonary workup was unremarkable except for persistent atrial fibrillation that is rate controlled and mild congestive changes on her chest x- ray. Patient did just finished dialysis prior to arrival. Patient was noted to be wheezing and DuoNeb treatment was administered. She had improvement of her chest pain but was still having pain in the upper back. Progress Note #2: Time: 15:14 Progress Note Case had been reviewed with Dr. Bejarano who agreed cardiac rule out should be pursued at the facility of her application support manager. I contacted Dr. Mcfarland, hospitalist at [facility] in [place]. She accepts the patient. Chart was again reviewed and cardiac catheter from 2012 was reviewed. Patient had a 50 percent stenosis of the LAD at that time confirming her coronary artery disease. The findings on the cardiac catheter in 2013 and the patient's verbal report of a relatively normal catheter from [facility] 2 weeks ago are in discrepancy. Patient is not having any chest pain at this time. She does still have upper back pain. This pain has been a more chronic problem than the chest pain she has been experiencing over the last week. Initial ECG Impression Date: Dec 05, 2017 Initial ECG Impression Time: 12:23 Initial ECG Rate: 74 Initial ECG Rhythm: A Fib/Flutter Comment Rate controlled atrial fibrillation with no acute ST elevation or depression to suggest ischemia. Diagonstic Imaging: Xray Plain Films/CT/US/NM/MRI: chest Comments Chest x-ray viewed by me and report reviewed. See report below: NAME: [facility]EL[facility] REC#: [id number] PT STATUS: REG ER : 1950 PHYSICIAN: SONDRA POE MD ADMIT DATE: 12/05/17/ER Signed Date of Exam: 12/05/17 CHEST 1 VIEW, AP/PA ONLY PATIENT HISTORY: Shortness of air. TECHNIQUE: Single frontal view of the chest. COMPARISON: 11/18/2017 FINDINGS: The right-sided dual-lumen catheter appears in stable position. There is mild cardiomegaly with moderate central vascular congestion. Lung volumes appear stable. No focal consolidation is seen. There is no pleural effusion or pneumothorax. No acute osseous abnormality is seen. IMPRESSION: Mild cardiomegaly with mild central vascular congestion. No new pulmonary consolidation seen. Dictated by: Dictated on workstation # [id number] Dict: 12/05/17 1301 Trans: 12/05/17 1401 Interpreted by: EARL RAMIREZ MD Electronically signed by: EARL RAMIREZ MD 12/05/17 1401 Departure Impression Primary Impression: Chest pain Qualified Codes: R07.9 - Chest pain, unspecified Additional Impressions: Upper back pain Coronary artery disease Qualified Codes: I25.10 - Atherosclerotic heart disease of [place] coronary artery without angina pectoris ESRD on dialysis COPD exacerbation Disposition: 02 XFER SHT-TRM HOSP Condition: Stable Transfer Time Spoke to Accepting Phy: 15:14 Transfer Time: 16:33 Transfer Facility: Transfer to Dr. Lang at [facility] accepted at 15:14 Departure-Patient Inst. Referrals: [place] - [facility] (PCP[facility]Family) Primary Care Physician SONDRA POE MD Dec 05, 2017 15:00
[2017-12-05] MEDS ORDERED: ASPIRIN 81 MG CHEW (CHILDREN'S ASA) PO ONE (15:30)
[2017-12-05] MEDS ORDERED: NITROGLYCERIN 0.4 MG SL TABS BTL 25'S SL PRN (15:30)
[2017-12-05 16:30] VITALS: BP 162/82
== END 2017-12-05 16:33 | disposition short-term general hospital (02) ==
LOC: EDUNIT# 12:06 → ER 12:09
DX: R07.89 Other chest pain (principal); M54.6 Pain in thoracic spine; J44.1 Chronic obstructive pulmonary disease with (acute) exacerbation; I25.10 Atherosclerotic heart disease of native coronary artery without angina pectoris; I12.0 Hypertensive chronic kidney disease with stage 5 chronic kidney disease or end stage renal disease; N18.6 End stage renal disease; F32.9 Major depressive disorder, single episode, unspecified; G47.9 Sleep disorder, unspecified; I48.91 Unspecified atrial fibrillation; E78.00 Pure hypercholesterolemia, unspecified; E66.01 Morbid (severe) obesity due to excess calories; M10.9 Gout, unspecified; K21.9 Gastro-esophageal reflux disease without esophagitis; Z87.442 Personal history of urinary calculi; Z87.19 Personal history of other diseases of the digestive system; Z86.73 Personal history of transient ischemic attack (TIA), and cerebral infarction without residual deficits; Z99.2 Dependence on renal dialysis; Z99.81 Dependence on supplemental oxygen; Z98.890 Other specified postprocedural states; Z79.01 Long term (current) use of anticoagulants; Z79.4 Long term (current) use of insulin; Z79.82 Long term (current) use of aspirin; Z91.041 Radiographic dye allergy status; Z88.6 Allergy status to analgesic agent; Z88.8 Allergy status to other drugs, medicaments and biological substances; Z68.43 Body mass index [BMI] 50.0-59.9, adult; Z82.49 Family history of ischemic heart disease and other diseases of the circulatory system
CPT/HCPCS: 36415; 71045; 80053; 83735; 83874; 84484; 85025; 85610; 85730; 86141; 93005; 93041; 94640

== ENCOUNTER → 2018-05-17 | Outpatient (CLI) | payer MEDICARE, MEDICAID ==
[~2018-05-17] MED LIST changes: -AMLO10TA2 PO; +AMLO10TA6 PO
== END ==
LOC: LABNPT 21:04
PROVIDERS: ATTEND Internal Medicine Infectious Disease
DX: L08.9 Local infection of the skin and subcutaneous tissue, unspecified (principal); Z86.14 Personal history of Methicillin resistant Staphylococcus aureus infection
CPT/HCPCS: 80202

== ENCOUNTER → 2018-06-01 | Outpatient (CLI) | payer MEDICARE, MEDICAID | LOC: WOUNDCARE 10:57 | PROVIDERS: ATTEND Surgery | DX: E11.622 Type 2 diabetes mellitus with other skin ulcer (principal); L98.492 Non-pressure chronic ulcer of skin of other sites with fat layer exposed; T81.31XA Disruption of external operation (surgical) wound, not elsewhere classified, initial encounter; L02.211 Cutaneous abscess of abdominal wall; N18.6 End stage renal disease; E66.01 Morbid (severe) obesity due to excess calories; Z68.43 Body mass index [BMI] 50.0-59.9, adult | CPT/HCPCS: 11042; 11045 ==

== ENCOUNTER → 2018-06-08 | Outpatient (CLI) | payer MEDICARE, MEDICAID | LOC: WOUNDCARE 10:42 | PROVIDERS: ATTEND Surgery | DX: E11.622 Type 2 diabetes mellitus with other skin ulcer (principal); L98.492 Non-pressure chronic ulcer of skin of other sites with fat layer exposed; T81.31XA Disruption of external operation (surgical) wound, not elsewhere classified, initial encounter; L02.211 Cutaneous abscess of abdominal wall; N18.6 End stage renal disease; E66.01 Morbid (severe) obesity due to excess calories; Z68.43 Body mass index [BMI] 50.0-59.9, adult | CPT/HCPCS: 11042; 97605 ==

== ENCOUNTER → 2018-06-15 | Outpatient (CLI) | payer MEDICARE, MEDICAID | LOC: WOUNDCARE 09:37 | PROVIDERS: ATTEND Nurse Practitioner | DX: L98.492 Non-pressure chronic ulcer of skin of other sites with fat layer exposed (principal); T81.31XA Disruption of external operation (surgical) wound, not elsewhere classified, initial encounter; L02.211 Cutaneous abscess of abdominal wall; E11.622 Type 2 diabetes mellitus with other skin ulcer; E66.01 Morbid (severe) obesity due to excess calories; N18.6 End stage renal disease | CPT/HCPCS: 11042; 97605 ==

== ENCOUNTER → 2018-06-22 | Outpatient (CLI) | payer MEDICARE, MEDICAID | LOC: WOUNDCARE 09:04 | PROVIDERS: ATTEND Surgery | DX: L98.492 Non-pressure chronic ulcer of skin of other sites with fat layer exposed (principal); T81.31XA Disruption of external operation (surgical) wound, not elsewhere classified, initial encounter; E11.622 Type 2 diabetes mellitus with other skin ulcer; E66.01 Morbid (severe) obesity due to excess calories; L02.211 Cutaneous abscess of abdominal wall; N18.6 End stage renal disease | CPT/HCPCS: 11042 ==

== ENCOUNTER → 2018-06-29 | Outpatient (CLI) | payer MEDICARE, MEDICAID | LOC: WOUNDCARE 09:05 | PROVIDERS: ATTEND Surgery | DX: L98.492 Non-pressure chronic ulcer of skin of other sites with fat layer exposed (principal); T81.31XA Disruption of external operation (surgical) wound, not elsewhere classified, initial encounter; E11.622 Type 2 diabetes mellitus with other skin ulcer; E66.01 Morbid (severe) obesity due to excess calories; L02.211 Cutaneous abscess of abdominal wall; N18.6 End stage renal disease | CPT/HCPCS: 11042; 87070; 87075; 87077; 87186; 87205 ==

== ENCOUNTER → 2018-07-04 | Outpatient (CLI) | payer MEDICARE, MEDICAID | LOC: WOUNDCARE 09:17 | PROVIDERS: ATTEND Orthopaedic Surgery Hand Surgery | DX: E11.622 Type 2 diabetes mellitus with other skin ulcer (principal); L98.492 Non-pressure chronic ulcer of skin of other sites with fat layer exposed; T81.31XA Disruption of external operation (surgical) wound, not elsewhere classified, initial encounter; E66.01 Morbid (severe) obesity due to excess calories; N18.6 End stage renal disease | CPT/HCPCS: 11042 ==

== ENCOUNTER → 2018-07-11 | Day surgery (SDC) | payer MEDICARE, MEDICAID ==
[~2018-07-11] VITALS: Ht 160 cm; Wt 125.2 kg
[2018-07-11] VITALS (7 sets, daily range): BP systolic 122–153; BP diastolic 81–98
[~2018-07-11] MED LIST changes: +ACET-2650 PO; +APIX5TAB PO; +ATOR40TA70 PO; +CLON0.1T PO; +FURO40TA4 PO; +HYDR-3924 PO; +METO50TA15 PO; +MIDAZOLAM 2 MG/2 ML (VERSED) VIAL ONE; +NS IV 1000 ML 1,000 ML IV SCH; +NS IV 1000 ML 1,000 ML ONE; +RT-ALBUINH IH; +proPOfol 200 MG/20 ML (DIPRIVAN) VIAL IV ONE
--- OUTSIDE RECORDS SUMMARY | 2018-07-11 11:08 | XMS REPORT ---
Author Author JOSEP GONG [facility] Address [address] [place] [address] Care Team Providers Care Department Secretary Name Role Phone JOSEP GONG Unavailable PROBLEMS Type Condition ICD9-CM Code BLM58-SI Code Onset Dates Condition Status SNOMED Code Problem Chronic obstructive pulmonary disease with acute exacerbation J44.1 Active 473074079 Problem Chronic obstructive pulmonary disease, unspecified COPD type J44.9 Active 33642395 Problem Vitamin D deficiency, unspecified E55.9 Active 64513141 Problem History of MRSA infection Z86.14 Active 249525856 Problem Type 2 diabetes mellitus with other diabetic kidney complication E11.29 Active 210151344 Problem Gastric reflux K21.9 Active 136298426 Problem Right knee pain M25.561 Active 61113844 Problem Sprain of right knee, unspecified ligament, initial encounter S83.91XA Active 24165270 Problem Body mass index (BMI) of 40.0-44.9 in adult Z68.41 Active 599582076 Problem Obesity, unspecified E66.9 Active [id number] Problem Paroxysmal atrial fibrillation I48.0 Active 914240167 Problem Chronic congestive heart failure, unspecified heart failure type I50.9 Active 80251229 Problem Chronic renal disease, unspecified stage N18.9 Active 465482601 Problem Chronic kidney disease, stage IV (severe) N18.4 Active 895797968 Problem Essential hypertension I10 Active 58827112 Problem Hyperlipidemia, unspecified E78.5 Active 82298837 Problem Renal osteodystrophy N25.0 Active 20568014 Problem Essential (primary) hypertension I10 Active 52534805 Problem Venous (peripheral) insufficiency I87.2 Active 73893570 Problem Anemia of renal disease D63.1 Active 214457406 Problem Type 2 diabetes mellitus with diabetic nephropathy E11.21 Active 734518596 Problem Abscess L02.91 Active 514254308 Problem Proteinuria R80.9 Active 69418791 Problem Chronic bronchitis, unspecified chronic bronchitis type J42 Active 95752149 ALLERGIES No Information ENCOUNTERS Encounter Location Date Diagnosis [facility] [address] [id number] [id number] May, [facility] [place] [address] [id number][place] [id number] May[place] [facility] [place] [address] [id number][place] [id number] May, [facility] [place] [address] [id number] [place] [address] [id number] May, [facility] [place] [address] [facility] [address] [id number] [id number] May, [facility] [id number] [place] [address] [id number] May, Abscess L02.91 ; History of MRSA infection Z86.14 and Body mass index (BMI ) 70 or greater, adult Z68.45 [facility] [id number] [place] [address] [id number] Apr, [facility] [id number] [place] [address] [id number] Apr, Local infection of the skin and subcutaneous tissue, unspecified L08.9 ; Other injury of unspecified body region, initial encounter T14.8XXA and History of MRSA infection Z86.14 [facility] [id number], [place] [id number] Mar, Type 2 diabetes mellitus with diabetic nephropathy E11.21 and Gastric reflux K21.9 [facility] [address] [id number][place] [id number] Mar, Type 2 diabetes mellitus with diabetic nephropathy E11.21 ; Gastric reflux K21.9 and Chronic kidney disease, stage IV (severe) N18.4 [facility] [id number] [place] [address] [id number] Feb, [facility] [id number] [place] [address] [id number] Feb, Type 2 diabetes mellitus with other diabetic kidney complication E11.29 [facility] [id number], [place] [id number] Jan, Body mass index (BMI) 70 or greater, adult Z68.45 and Type 2 diabetes mellitus with other diabetic kidney complication E11.29 [place] [id number] [place] [address] [id number] Nov, Body mass index (BMI) 70 or greater, adult Z68.45 ; Chronic obstructive pulmonary disease, unspecified COPD type J44.9 ; Chronic kidney disease, stage IV (severe) N18.4 and Gastric reflux K21.[address] [id number] Oct, Body mass index (BMI) 70 or greater, adult Z68.45 ; Type 2 diabetes mellitus with other diabetic kidney complication E11.29 ; Chronic obstructive pulmonary disease with acute exacerbation J44.1 and Paroxysmal atrial fibrillation I48.[address] [id number] Oct, [address] [id number] Oct, Type 2 diabetes mellitus with diabetic nephropathy E11.21 ; Chronic renal disease, unspecified stage N18.9 ; Chronic congestive heart failure, unspecified heart failure type I50.9 and Chronic obstructive pulmonary disease with acute exacerbation J44.1 [place] [id number] [place] [address] [id number] Sep, [place] [id number] [place] [address] [id number] Sep, [address] [id number] Sep, [facility] [address] [id number] [address] Sep, Type 2 diabetes mellitus with diabetic nephropathy E11.[address] [id number] Aug, Influenza J11.1 and Essential (primary) hypertension I10 [facility] [address] [id number] [address] Aug, [address] [id number] Jul, Type 2 diabetes mellitus with diabetic nephropathy E11.21 ; Essential ( primary) hypertension I10 and Chronic obstructive pulmonary disease, unspecified COPD type J44.9 [facility] [address] [id number] [id number] Jun, Dental caries K02.[address] [place] [address] [id number] May, Cough R05 ; Chronic obstructive pulmonary disease, unspecified COPD type J44.9 ; Shortness of breath R06.02 ; Obesity, unspecified E66.9 ; Body mass index (BMI) of 40.0-44.9 in adult Z68.41 and Encounter for immunization Z23 [facility] [address]00565100[place] [id number] May, Dental examination Z01.[address] [place] [address] [id number] May, Essential hypertension I10 [place] [id number] [place] [address] [id number] Apr, Anemia of renal disease D63.1 ; Type 2 diabetes mellitus with other diabetic kidney complication E11.29 ; Vitamin D deficiency, unspecified E55.9 and Chronic renal disease, unspecified stage N18.9 [facility] [address] [id number], [place] [address] Mar, [address] [place] [address] [id number] Mar, Type 2 diabetes mellitus with other diabetic kidney complication E11.29 ; Essential hypertension I10 ; Chronic renal disease, unspecified stage N18.9 and Chronic obstructive pulmonary disease with acute exacerbation J44.[address] [place] [address] [id number] Feb, [place] [id number] [place] [address] [id number] Feb, Chronic renal disease, unspecified stage N18.9 ; Essential (primary) hypertension I10 and Type 2 diabetes mellitus with other diabetic kidney complication E11.29 [id number] [id number] Feb, Type 2 diabetes mellitus with other diabetic kidney complication E11.29 ; Chronic kidney disease, stage IV (severe) N18.4 ; Renal osteodystrophy N25.0 ; Anemia of renal disease D63.1 and Essential (primary) hypertension I10 [address] [place] [address] [id number] December, [place] [address] [place] [address] [id number] December, Chronic obstructive pulmonary disease with acute exacerbation J44.1 ; Essential (primary) hypertension I10 ; Low back pain M54.5 and Right knee pain M25.[address] [place] [address] [id number] Nov, Chronic renal disease, unspecified stage N18.9 ; Essential hypertension I10 ; Type 2 diabetes mellitus with other diabetic kidney complication E11.29 and Chronic obstructive pulmonary disease with acute exacerbation J44.1 [address]00565100[place] [id number] Nov, Chronic renal disease, unspecified stage N18.9 ; Hyperlipidemia, unspecified E78.5 and Essential hypertension I10 [address] [place] [address] [id number] Oct, Chronic bronchitis, unspecified chronic bronchitis type J42 and Type 2 diabetes mellitus with diabetic nephropathy E11.21 [address] [place] [address] [id number] Sep, Chronic bronchitis, unspecified chronic bronchitis type J42 ; Essential ( primary) hypertension I10 and Type 2 diabetes mellitus with other diabetic kidney complication E11.29 [place] [id number] [id number] Sep, Chronic obstructive pulmonary disease with acute exacerbation J44.[address] [place] [address] [id number] Aug, Type 2 diabetes mellitus with diabetic nephropathy E11.21 ; Chronic kidney disease, stage IV (severe) N18.4 ; Essential (primary) hypertension I10 and Encounter for immunization Z23 [id number] [id number] Aug, Chronic kidney disease, stage IV (severe) N18.4 ; Type 2 diabetes mellitus with diabetic nephropathy E11.21 and Type 2 diabetes mellitus with hyperglycemia E11.65 [address] [place] [address] [id number] May, Anemia of renal disease D63.1 ; Essential (primary) hypertension I10 ; Renal osteodystrophy N25.0 ; Proteinuria R80.9 ; Chronic kidney disease, stage IV (severe) N18.4 and Type 2 diabetes mellitus with other diabetic kidney complication E11.29 [place] [id number] [place] [address] [id number] Mar, Type 2 diabetes mellitus with other diabetic kidney complication E11.29 ; Essential hypertension I10 ; Chronic renal disease, unspecified stage N18.9 and TMJ (temporomandibular joint disorder) M26.[address] [place] [address] [id number] Jan, Chronic kidney disease, stage IV (severe) N18.4 and Hyperlipidemia, unspecified E78.5 [place] [id number] [place] [address] [id number] December, Type 2 diabetes mellitus with other diabetic kidney complication E11.29 ; Abscess L02.91 and Chronic kidney disease, stage IV (severe) N18.[address] [place] [address] [id number] December, Abscess L02.91 [address] [place] [address] [id number] December, [address] [place] [address] [id number] Oct, Renal osteodystrophy N25.0 ; Chronic kidney disease, stage IV (severe) N18.4 and Vitamin D deficiency E55.9 [address] [place] [address] [id number] Oct, [place] [address] [place] [address] [id number] Sep, Type 2 diabetes mellitus with other diabetic kidney complication E11.29 ; Essential hypertension I10 and Chronic airway obstruction, not elsewhere classified J44.9 [address] [place] [address] [id number] Sep, [place] [address] [place] [address] [id number] Aug, [address] [place] [address] [id number] Jul, [place] [id number] [place] [address] [id number] Jul, [place] [address] [place] [address] [id number] Jul, Chronic kidney disease, stage IV (severe) N18.4 ; Renal osteodystrophy N25.0 and Proteinuria R80.9 [place] [address] [address] Jul, [facility] [id number] [place] [address] [id number] Jun, [facility] [id number] [place] [address] [id number] Jun, [place] [id number] [place] [address] [id number] Jun, Diabetes with renal manifestations, type II or unspecified type, uncontrolled 250.42 and Right knee pain M25.561 [place] [address] [address] May, [place] [id number] [place] [address] [id number] May, Abscess L02.91 ; Encounter for immunization Z23 and Sprain of right knee, unspecified ligament, initial encounter S83.91XA [place] [address] [place] [address] [id number] May, Abscess L02.[address] [facility] [id number] [place] [address] [id number] May, [place] [id number] [place] [address] [id number] Apr, Diabetes with renal manifestations, type II or unspecified type, uncontrolled 250.42 and PPV23 (PNEUMOVAX) DX V03.82 [place] [id number] [place] [address] [id number] Mar, [place] [address] [place] [address] [id number] Mar, Proteinuria 791.0 ; Renal osteodystrophy 588.0 ; Chronic kidney disease, Stage IV (severe) 585.4 ; Benign essential hypertension 401.1 and Vitamin D deficiency 268.9 [place] [address] [place] [address] [id number] Feb, Avulsion fracture of ankle 824.8 [place] [address] [place] [address] [id number] Feb, [place] [address] [place] [address] [id number] Feb, [place] [address] [place] [address] [id number] Feb, Diabetes with renal manifestations, type II or unspecified type, uncontrolled 250.42 [place] [address] [place] [address] [id number] Jan, Diabetes with renal manifestations, type II or unspecified type, uncontrolled 250.42 [place] [address] [place] [address] [id number] December, Diabetes with renal manifestations, type II or unspecified type, uncontrolled 250.42 and Unspecified essential hypertension 401.9 [place] [address] [place] [address] [id number] December, [place] [address] [place] [address] [id number] December, [place] [address] [place] [address] [id number] December, Essential hypertension 401.9 [place] [address] [place] [address] [id number] Nov, Essential hypertension 401.9 [place] [address] [place] [address] [id number] Nov, [facility] [address] [id number] [place] [id number] Nov, [facility] [address] [id number] [place] [id number] Nov, [facility] [place] [facility] [address] [facility] [id number] [place] [address]- [address]46 Nov, [facility] [place] [facility] [address] [facility] [id number] [place] [address]- [address]46 Nov, [facility] [address] [id number] [place] [id number] Oct, [facility] [place] [facility] [address] [facility] [id number] [place] [address]- [address] Oct, [facility] [address] [id number] [place] [id number] Oct, [facility] [place] [facility] [address] [id number], [place] [address]- [address] Oct, [facility] [place] [facility] [address] [facility] [id number], [place] [address]- [address]46 Oct, [facility] [address] [id number] [place] [id number] Oct, [facility] [address] [id number][place] [id number] Oct, [facility] [place] [facility] [address] [facility] [id number], [place] [address]- [address]46 Oct, [facility] [place] [facility] [address] [facility] [id number], [place] [address]- [address]46 Sep, [facility] [address] [id number] [place] [id number] Sep, [facility] [address] [id number] [place] [id number] Sep, [facility] [place] [facility] [address] [facility] [id number] [place] [address]- 2546 Sep, [facility] [address] [id number], [place] [id number] Aug, [facility] [address] [id number] [place] [address]- 26[address] Aug, [facility] [address] [facility] [id number], [place] [id number] Aug, [facility] [place] [facility] [address] [facility] [id number], [place] [address]- [address] Aug, [facility] [address] [facility] [id number][place] [id number] Aug, [facility] [place] [facility] [address] [facility] [id number] [place] [address]- 8514 Aug, [facility] [place] [facility] [address] [facility] [id number] [place] [address]- 8796 Aug, [facility] [address] [id number][place] [id number] Aug, [facility] [place] [facility] [address]00565100[place], [place] [address] Jul, [facility] [place] [facility] [address] [facility] [id number], [place] [address]- 4[address] Jul, [facility] [address] [id number], [place] [id number] Jul, [facility] [place] [facility] [address] [facility] [id number], [place] [address]- [address] Jul, [facility] [address] [facility] [id number], [place] [id number] Jul, [facility] [place] [facility] [address] [facility] [id number], [place] [address]- [address] Jul, [facility] [address] [facility] [id number], [place] [id number] Jul, [facility] [place] [facility] [address] [facility] [id number], [place] [address]- 0066 Jul, [facility] [place] [facility] [address] [facility] [id number][place] [address]- 0848 May, [facility] [address] [id number] [place] [id number] May, [facility] [address] [id number] [place] [id number] May, [facility] [place] [facility] [address] [facility] [id number] [place] [address]- 37[address] May, [facility] [address] [facility] [id number] [place] [id number] Apr, [facility] [place] [facility] [address] [facility] [id number], [place] 459[place]- 4703 Apr, [facility] [address] [facility] [id number] [place] [id number] Mar, [facility] [place] [facility] [address] [facility] [id number], [place] 389542- 2038 Mar, [facility] [place] [facility] [address]00565[address], [place] [address]- 0[address] Mar, [facility] [place] [facility] [address] [facility] [id number], [place] 69016808- 6671 Mar, [facility] [address] [id number], [place] [id number] Mar, [facility] [address] [facility] [id number], [place] [id number] Feb, [facility] [place] [facility] [address] [facility] [id number], [place] [address]- 64[address] Feb, [facility] [address] [facility] [id number], [place] [address] Jan, [facility] [place] [facility] [address] [facility] [id number], [place] 825889- 5844 Jan, [facility] [place] [facility] [address] [facility] [id number], [place] [address]- 9779 Jan, [facility] [address] [id number], [place] [id number] Jan, [facility] [address] [facility] [id number], [place] [id number] Jan, [facility] [place] [facility] [address] [facility] [id number] [place] [address]- 2546 Jan, [facility] [address] [facility] [id number] [place] 8841039[address] December, [facility] [place] [facility] [address] [facility] [id number] [place] [address]- 2546 December, [facility] [place] [facility] [address] [facility] [id number] [place] [address]- 2546 Nov, [facility] [place] [facility] [address] [facility] [id number] [place] [address]- 2546 Nov, [facility] [address] [facility] [id number], [place] 312562632 Nov, [facility] [place] [facility] [address] [facility] [id number], [place] [address]- 2546 Nov, [facility] [address] [facility] [id number], [place] [id number] Oct, [facility] [place] [facility] [address] [facility] [id number], [place] [address]- 9336 Oct, [facility] [address] [facility] [id number], [place] [id number] Oct, [facility] [place] [facility] [address] [facility] [id number], [place] [address] 2546 Oct, [facility] [address] [facility] [id number], [place] 024940036 Oct, [facility] [place] [facility] [address] [facility] [id number], [place] [address]- 2546 Oct, [facility] [address] [facility] [id number], [place] 515007259 Oct, [facility] [place] [facility] [address] [facility] [id number], [place] [address]- 2546 Oct, [facility] [address] [facility] [id number], [place] [id number] Aug, [facility] [place] [facility] [address] [facility] [id number], [place] [address]- 2546 Aug, [facility] [address] [facility] [id number], [place] [id number] Jul, [facility] [place] [facility] [address] [facility] [id number], [place] [address]- 2546 Jul, [facility] [address] [facility] [id number], [place] [id number] Jun, [facility] [place] [facility] [address]00565100[place], [place] [address]- 2546 Jun, [facility] [place] [facility] [address] [facility] [id number], [place] [address]- 2546 Jun, [facility] [address] [facility] [id number], [place] 825178487 Jun, [facility] [address] [facility] [id number], [place] [id number] May, [facility] [place] [facility] [address]00565100[place], [place] [address]- 2546 May, [facility] [place] [facility] [address]00565100[place], [place] [address]- 2546 May, [facility] [address] [id number], [place] 697992778 May, [facility] [place] [facility] [address]00565100[place], [place] [address]- 2546 May, [facility] [id number], [place] [id number] May, [facility] [place] [facility] [address] [facility] [id number], [place] [address]- 2546 May, [facility] [address] [facility] [id number], [place] [address]36549683 May, [facility] [place] [facility] [address] [id number], [place] [address] Apr, [facility] [address] [id number], [place] [address] Apr, [facility] [address] [facility] [id number][place] [id number] Apr, [facility] [address] [facility] [id number], [place] [address] Apr, [facility] [address] [facility] [id number], [place] [address] Mar, [facility] [address] [id number] [place] [id number] Mar, [facility] [address] [id number] [place] [id number] Feb, [facility] [address] [id number] [place] [id number] Feb, [facility] [address] [id number] [place] [id number] Feb, [facility] [address] [id number] [place] [id number] Jan, [facility] [address] [facility] [id number], [place] [address] Jan, [facility] [address] [id number] [place] [id number] Jan, [facility] [address] [id number] [place] [id number] December, [facility] [address] [facility] [id number], [place] [address] December, [facility] [address] [id number] [place] [id number] December, [facility] [address] [id number][place] [id number] December, [facility] [address] [id number] [place] [id number] Nov, [facility] [address] [id number] [place] [id number] Nov, [facility] [place] [facility] [address] [facility] [id number], [place] [address] Nov, [facility] [place] [address] [id number] [place] [id number] Nov, [facility] [place] [address] [id number] [place] [id number] Oct, [facility] [place] [address] [id number] [place] [id number] Oct, [facility] [place] [address] [id number] [place] [id number] Oct, [facility] [place] [address] [id number] [place] [id number] Oct, [facility] [place] [address] [id number] [place] [id number] Sep, [facility] [place] [address] [id number] [place] [id number] Sep, [facility] [address] [facility] [id number], [place] [address] Aug, [facility] [address] [facility] [id number], [place] [address] Aug, [facility] [place] [address] [id number] [place] [id number] Aug, [facility] [place] [address] [id number] [place] [id number] Aug, [facility] [place] [address] [id number] [place] [id number] Jul, [facility] [place] [address] [id number] [place] [id number] Jul, [facility] [address] [facility] [id number], [place] [address] Jul, [facility] [address] [facility] [id number], [place] [address] Jul, [facility] [place] [address] [id number] [place] [id number] Jul, [facility] [address] [facility] [id number][place] [id number][place] [address] Jul, [facility] [place] [address] [id number] [id number] Jul, [facility] [id number], [place] [address] Jul, [facility] [place] [facility] [address] [facility] [id number], [place] [address] Jul, [facility] [place] [address] [facility] [id number][place] [id number] Jul, [facility] [place] [address] [facility] [id number][place] [id number] Jul, [facility] [place] [facility] [address] [facility] [id number], [place] [address] Jul, [facility] [place] [address] [facility] [id number][place] [address] Jun, [facility] [place] [facility] [address] [facility] [id number] [place] [address] Jun, [facility] [place] [facility] [address] [id number] [address] Jun, [facility] [place] [id number] [place] [id number] Jun, [facility] [place] [facility] [address] [id number] Jun, [facility] [place] [facility] [id number], [place] [address] Jun, [facility] [place] [address] [id number][place] [id number] Jun, [facility] [place] [facility] [id number], [place] [address] Jun, [facility] [place] [address] [facility] [id number], [place] [id number] Jun, [facility] [place] [facility] [address] [facility] [id number], [place] [address] Jun, [facility] [place] [address] [facility] [id number], [place] [id number] May, [facility] [place] [facility] [id number], [place] [address] Apr, [facility] [place] [facility] [address] [facility] [id number] [place] [address] Apr, [facility] [place] [address] [id number] [id number] Apr, [facility] [place] [address] [id number] [place] [id number] Apr, [facility] [place] [address] [id number] [place] [id number] Apr, [facility] [place] [address] [id number] [place] [id number] Apr, [facility] [place] [address] [id number] [place] [id number] Apr, [facility] [place] [address] [id number] [place] [id number] Mar, [facility] [place] [address] [id number] [place] [id number] Mar, [facility] [place] [address] [id number] [place] [id number] Mar, [facility] [place] [address] [id number] [place] [address] Mar, [facility] [place] [address] [id number] [place] [id number] Mar, [facility] [place] [address] [id number] [place] [id number] Mar, [facility] [place] [address] [id number] [place] [id number] Mar, [facility] [place] [address] [id number] [place] [id number] Feb, [facility] [place] [address] [id number] [place] [id number] Feb, [facility] [place] [address] [id number] [place] 611824649 Jan, [facility] [place] [address] [id number] [place] [id number] Jan, [facility] [place] [address] [id number] [place] [id number] Jan, [facility] [place] [address] [id number] [place] [id number] Jan, [facility] [place] [address] [id number] [place] [id number] Jan, [facility] [place] [address] [id number] [place] [id number] Jan, [facility] [place] [address] [id number] [id number] December, [facility] [place] [address] [id number] [place] [id number] Nov, [facility] [place] [address] [id number] [place] [id number] Oct, [facility] [place] [address] [id number] [place] [id number] Oct, [facility] [place] [address] [id number] [place] [address]198488[address] Oct, [facility] [id number] 599[address]- [address] Oct, [facility] [place] [address] [id number] [place] [id number] Oct, [facility] [place] [address] [id number] [place] 408263421 Oct, [facility] [place] [address] [id number] [place] 640748688 Oct, [facility] [place] [address] [id number] [place] [id number] Oct, [facility] [place] [address] [id number] [place] 938431514 Oct, [facility] [place] [address] [id number] [place] [id number] Oct, [facility] [place] [address] [id number] [place] [id number] Sep, [facility] [address] [id number] [address]- [address] Sep, [facility] [place] [address] [id number] [place] [id number] Sep, [facility] [place] [address] [id number] [place] [id number] Aug, [facility] [place] [address] [id number] [place] [id number] Aug, [facility] [place] [address] [id number] [place] [id number] Aug, [facility] [place] [facility] [address] [id number] [place] [address]- [address] Aug, [facility] [place] [facility] [address] [id number] [place] [address]- [address]676 Jul, [facility] [place] [facility] [address] [id number] [place] [address]- [address] Jul, [facility] [place] [facility] [address] [id number] [place] [address]- 0856 Jul, [facility] [place] [facility] [address] [id number] [place] [address]- 9702 Jul, [facility] [place] [facility] [address] [id number] [place] [address]- 6260 Jun, [facility] [place] [facility] [address] [id number] [place] [address]- 8857 Jun, [facility] [place] [facility] [address] [id number] [place] [address]- 4421 May, [facility] [place] [facility] [address] [facility] [id number] [place] [address]- [address]7 May, [facility] [place] [facility] [address] [id number] [place] [address]- [address] December, [facility] [place] [facility] [address] [id number] [place] [address]- [address]46 December, [facility] [place] [facility] [address] [id number] [place] [address]- 4536 Aug, [facility] [place] [facility] [address] [id number] [place] [address]- 2546 Jul, [facility] [place] [facility] [address] [id number] [place] [address]- 3854 28 Jul, 2010 [facility] [address] [id number] [place] [address]- 4832 23 Jul, 2010 [facility] [place] [facility] [address] [id number] [place] [address]- 7966 16 Jul, 2010 [facility] [place] [facility] [address] [id number] [place] [address] 16 Jul, 2010 [facility] [place] [facility] [address] [id number] [place] [address]- 7146 03 Jul, 2010 [facility] [place] [facility] [address] [id number] [place] [address]- 7999 30 Jun, 2010 [facility] [place] [facility] [address] [id number] [place] [address]- 8733 30 Jun, 2010 [facility] [place] [facility] [address] [id number] [place] [address]- 3185 29 Jun, 2010 [facility] [place] [facility] [address] [id number] [place] [address]- 1869 Jun, [facility] [place] [facility] [address] [id number] [place] [address]- 2213 Jun, [facility] [place] [facility] [address] [id number], [place] [address]- [address] 14 May, 2010 [facility] [place] [facility] [address] [id number], [place] [address]- 78[address] December, [facility] [place] [facility] [address] [id number], [place] [address]- 67[address] 14 Dec, 2009 [facility] [place] [facility] [address] [id number] [place] [address]- 8173 18 Oct, 2009 [facility] [place] [facility] [address] [id number], [place] [address]- [address]396 31 Jul, 2009 [facility] [place] [facility] [address] [id number] [place] [address]- 3184 24 Jul, 2009 [facility] [place] [facility] [address] [facility] [id number] [place] [address]- [address] Jul, [facility] [address] [facility] [id number], [place] [address]- 8678 Jun, [facility] [address] [facility] [id number], [place] [address]- [address] May, [facility] [address] [facility] [id number], [place] [address]- [address] Jun, IMMUNIZATIONS No Known Immunizations SOCIAL HISTORY Never Assessed REASON FOR VISIT Medication refill PLAN OF CARE VITAL SIGNS MEDICATIONS Unknown Medications RESULTS No Results PROCEDURES No Known procedures [...] Medical History Pneumococcal inj--2011 Medical History a-fib Medical History MRSA Medical History Dialysis 3 times a week Surgical History cholecystectomy 1999 Surgical History colectomy--partial (Dr. Gnozales) for polyps 2008 Surgical History carpal tunnel release--bilateral 1994 Surgical History orthopedic surgery--right knee 2007 Surgical History Back surgery x 2 1986, 2007 Surgical History Left ureteric stent placement due to kidney disease 2011 Surgical History central line placement 09/2017 Surgical History paritneal dialysis port placed, we admin herself 03/17/18 Surgical History paritneal port removed and I&D performed to abdomen / PICC Line placed for dialysis 04/2018 Hospitalization History surgeries, childbirth Hospitalization History [facility] N/V/D 05/2015 Hospitalization History [facility] influenza 08/2017 Hospitalization History CHF exacerbation 08/2017 Hospitalization History [facility], MRSA infection in paritneal site, port removed wound care to abd, IV antibiotics 04/2018
--- OUTSIDE RECORDS SUMMARY | 2018-07-11 11:08 | XMS REPORT ---
Author Author JOSEP GONG [facility] Address [address] [place] [address] Care Team Providers Care Bungy Jump Master Name Role Phone JOSEP GONG Unavailable PROBLEMS Type Condition ICD9-CM Code VNG27-NW Code Onset Dates Condition Status SNOMED Code Problem Chronic obstructive pulmonary disease with acute exacerbation J44.1 Active 651793595 Problem Chronic obstructive pulmonary disease, unspecified COPD type J44.9 Active 14116695 Problem Vitamin D deficiency, unspecified E55.9 Active 59613718 Problem History of MRSA infection Z86.14 Active 821858931 Problem Type 2 diabetes mellitus with other diabetic kidney complication E11.29 Active 209115312 Problem Gastric reflux K21.9 Active 788293906 Problem Right knee pain M25.561 Active 62029672 Problem Sprain of right knee, unspecified ligament, initial encounter S83.91XA Active 27718905 Problem Body mass index (BMI) of 40.0-44.9 in adult Z68.41 Active 471770296 Problem Obesity, unspecified E66.9 Active [id number] Problem Paroxysmal atrial fibrillation I48.0 Active 048316855 Problem Chronic congestive heart failure, unspecified heart failure type I50.9 Active 17361785 Problem Chronic renal disease, unspecified stage N18.9 Active 403958011 Problem Chronic kidney disease, stage IV (severe) N18.4 Active 787560078 Problem Essential hypertension I10 Active 05307729 Problem Hyperlipidemia, unspecified E78.5 Active 59095730 Problem Renal osteodystrophy N25.0 Active 77993987 Problem Essential (primary) hypertension I10 Active 73166498 Problem Venous (peripheral) insufficiency I87.2 Active 93798005 Problem Anemia of renal disease D63.1 Active 607755123 Problem Type 2 diabetes mellitus with diabetic nephropathy E11.21 Active 315379174 Problem Abscess L02.91 Active 943544825 Problem Proteinuria R80.9 Active 27221274 Problem Chronic bronchitis, unspecified chronic bronchitis type J42 Active 96914770 ALLERGIES No Information ENCOUNTERS Encounter Location Date Diagnosis [facility] [address] [facility] [id number] [id number] May, [facility] [place] [id number], [place] [id number] May, [facility] [facility] [address] [id number] [place] [id number] May, [facility] [place] [address] [place] [address] [id number] May, Abscess L02.91 ; History of MRSA infection Z86.14 and Body mass index (BMI ) 70 or greater, adult Z68.45 [facility] [place] [id number] [place] [address] [id number] Apr, [facility] [address] [place] [address] [id number] Apr, Local infection of the skin and subcutaneous tissue, unspecified L08.9 ; Other injury of unspecified body region, initial encounter T14.8XXA and History of MRSA infection Z86.14 [facility] [address] [facility] [id number][place] [id number] Mar, Type 2 diabetes mellitus with diabetic nephropathy E11.21 and Gastric reflux K21.9 [facility] [id number] [place] [address] [id number] Mar, Type 2 diabetes mellitus with diabetic nephropathy E11.21 ; Gastric reflux K21.9 and Chronic kidney disease, stage IV (severe) N18.4 [facility] [address] [id number][place] [id number] Feb, [facility] [id number], [place] [id number] Feb, Type 2 diabetes mellitus with other diabetic kidney complication E11.29 [facility] [id number] [place] [address] [id number] Jan, Body mass index (BMI) 70 or greater, adult Z68.45 and Type 2 diabetes mellitus with other diabetic kidney complication E11.29 [facility] [id number] [place] [address] [id number] Nov, Body mass index (BMI) 70 or greater, adult Z68.45 ; Chronic obstructive pulmonary disease, unspecified COPD type J44.9 ; Chronic kidney disease, stage IV (severe) N18.4 and Gastric reflux K21.9 [facility] [id number] [place] [address] [id number] Oct, Body mass index (BMI) 70 or greater, adult Z68.45 ; Type 2 diabetes mellitus with other diabetic kidney complication E11.29 ; Chronic obstructive pulmonary disease with acute exacerbation J44.1 and Paroxysmal atrial fibrillation I48.0 [place] [id number] [place] [address] [id number] Oct, [place] [id number] [place] [address] [id number] Oct, Type 2 diabetes mellitus with diabetic nephropathy E11.21 ; Chronic renal disease, unspecified stage N18.9 ; Chronic congestive heart failure, unspecified heart failure type I50.9 and Chronic obstructive pulmonary disease with acute exacerbation J44.1 [place] [id number] [place] [address] [id number] Sep, [place] [id number] [place] [address] [id number] Sep, [place] [id number] [place] [address] [id number] Sep, [facility] [id number] [place] [address] Sep, Type 2 diabetes mellitus with diabetic nephropathy E11.21 [place] [id number] [place] [address] [id number] Aug, Influenza J11.1 and Essential (primary) hypertension I10 [facility] [address] [id number] [address] Aug, [place] [id number] [place] [address] [id number] Jul, Type 2 diabetes mellitus with diabetic nephropathy E11.21 ; Essential ( primary) hypertension I10 and Chronic obstructive pulmonary disease, unspecified COPD type J44.9 [facility] [address] [id number] [id number] Jun, Dental caries K02.9 [facility] [address] [place] [address] [id number] May, Cough R05 ; Chronic obstructive pulmonary disease, unspecified COPD type J44.9 ; Shortness of breath R06.02 ; Obesity, unspecified E66.9 ; Body mass index (BMI) of 40.0-44.9 in adult Z68.41 and Encounter for immunization Z23 [facility] [address]005[address] [id number] May, Dental examination Z01.20 [place] [id number] [place] [address] [id number] May, Essential hypertension I10 [place] [id number] [place] [address] [id number] Apr, Anemia of renal disease D63.1 ; Type 2 diabetes mellitus with other diabetic kidney complication E11.29 ; Vitamin D deficiency, unspecified E55.9 and Chronic renal disease, unspecified stage N18.9 [facility] [address]005[address]100[place], [place] [address] Mar, [place] [id number] [place] [address] [id number] Mar, Type 2 diabetes mellitus with other diabetic kidney complication E11.29 ; Essential hypertension I10 ; Chronic renal disease, unspecified stage N18.9 and Chronic obstructive pulmonary disease with acute exacerbation J44.1 [facility] [address] [place] [address] [id number] Feb, [facility] [address] [place] [address] [id number] Feb, Chronic renal disease, unspecified stage N18.9 ; Essential (primary) hypertension I10 and Type 2 diabetes mellitus with other diabetic kidney complication E11.29 [facility] [id number] [place] [address] [id number] Feb, Type 2 diabetes mellitus with other diabetic kidney complication E11.29 ; Chronic kidney disease, stage IV (severe) N18.4 ; Renal osteodystrophy N25.0 ; Anemia of renal disease D63.1 and Essential (primary) hypertension I10 [address] [place] [address] [id number] December, [place] [address] [place] [address] [id number] December, Chronic obstructive pulmonary disease with acute exacerbation J44.1 ; Essential (primary) hypertension I10 ; Low back pain M54.5 and Right knee pain M25.561 [place] [address] [place] [address] [id number] Nov, Chronic renal disease, unspecified stage N18.9 ; Essential hypertension I10 ; Type 2 diabetes mellitus with other diabetic kidney complication E11.29 and Chronic obstructive pulmonary disease with acute exacerbation J44.1 [place] [id number] [place] [address] [id number] Nov, Chronic renal disease, unspecified stage N18.9 ; Hyperlipidemia, unspecified E78.5 and Essential hypertension I10 [place] [address] [place] [address] [id number] Oct, Chronic bronchitis, unspecified chronic bronchitis type J42 and Type 2 diabetes mellitus with diabetic nephropathy E11.21 [place] [id number] [place] [address] [id number] Sep, Chronic bronchitis, unspecified chronic bronchitis type J42 ; Essential ( primary) hypertension I10 and Type 2 diabetes mellitus with other diabetic kidney complication E11.29 [address] [place] [address] [id number] Sep, Chronic obstructive pulmonary disease with acute exacerbation J44.1 [place] [address] [place] [address] [id number] Aug, Type 2 diabetes mellitus with diabetic nephropathy E11.21 ; Chronic kidney disease, stage IV (severe) N18.4 ; Essential (primary) hypertension I10 and Encounter for immunization Z23 [place] [id number] [place] [address] [id number] Aug, Chronic kidney disease, stage IV (severe) N18.4 ; Type 2 diabetes mellitus with diabetic nephropathy E11.21 and Type 2 diabetes mellitus with hyperglycemia E11.65 [facility] [id number] [place] [address] [id number] May, Anemia of renal disease D63.1 ; Essential (primary) hypertension I10 ; Renal osteodystrophy N25.0 ; Proteinuria R80.9 ; Chronic kidney disease, stage IV (severe) N18.4 and Type 2 diabetes mellitus with other diabetic kidney complication E11.29 [place] [id number] [place] [address] [id number] Mar, Type 2 diabetes mellitus with other diabetic kidney complication E11.29 ; Essential hypertension I10 ; Chronic renal disease, unspecified stage N18.9 and TMJ (temporomandibular joint disorder) M26.60 [place] [id number] [place] [address] [id number] Jan, Chronic kidney disease, stage IV (severe) N18.4 and Hyperlipidemia, unspecified E78.5 [place] [address] [place] [address] [id number] December, Type 2 diabetes mellitus with other diabetic kidney complication E11.29 ; Abscess L02.91 and Chronic kidney disease, stage IV (severe) N18.4 [place] [address] [place] [address] [id number] December, Abscess L02.91 [place] [address] [place] [address] [id number] December, [address] [place] [address] [id number] Oct, Renal osteodystrophy N25.0 ; Chronic kidney disease, stage IV (severe) N18.4 and Vitamin D deficiency E55.9 [address] [place] [address] [id number] Oct, [place] [address] [place] [address] [id number] Sep, Type 2 diabetes mellitus with other diabetic kidney complication E11.29 ; Essential hypertension I10 and Chronic airway obstruction, not elsewhere classified J44.9 [place] [address] [place] [address] [id number] Sep, [address] [id number] Aug, [address] [place] [address] [id number] Jul, [place] [address] [place] [address] [id number] Jul, [place] [address] [place] [address] [id number] Jul, Chronic kidney disease, stage IV (severe) N18.4 ; Renal osteodystrophy N25.0 and Proteinuria R80.9 [place] [address] [address] Jul, [facility] [address] [place] [address] [id number] [place] [address] [id number] Jun, [facility] [address] [place] [address] [id number] [place] [address] [id number] Jun, [place] [address] [place] [address] [id number] Jun, Diabetes with renal manifestations, type II or unspecified type, uncontrolled 250.42 and Right knee pain M25.561 [place] [address] [address] May, [place] [address] [place] [address] [id number] May, Abscess L02.91 ; Encounter for immunization Z23 and Sprain of right knee, unspecified ligament, initial encounter S83.91XA [place] [address] [place] [address] [id number] May, Abscess L02.91 [facility] [id number] [place] [address] [id number] May, [place] [address] [place] [address] [id number] Apr, Diabetes with renal manifestations, type II or unspecified type, uncontrolled 250.42 and PPV23 (PNEUMOVAX) DX V03.[address] [place] [id number] Mar, [facility] [id number][place] [id number] Mar, Proteinuria 791.0 ; Renal osteodystrophy 588.0 ; Chronic kidney disease, Stage IV (severe) 585.4 ; Benign essential hypertension 401.1 and Vitamin D deficiency 268.9 [facility] [id number] [place] [address] [id number] Feb, Avulsion fracture of ankle 824.8 [facility] [id number] [place] [address] [id number] Feb, [place] [id number] [place] [address] [id number] Feb, [facility] [id number] [place] [address] [id number] Feb, Diabetes with renal manifestations, type II or unspecified type, uncontrolled 250.42 [facility] [id number] [place] [address] [id number] Jan, Diabetes with renal manifestations, type II or unspecified type, uncontrolled 250.42 [facility] [id number] [place] [address] [id number] December, Diabetes with renal manifestations, type II or unspecified type, uncontrolled 250.42 and Unspecified essential hypertension 401.9 [facility] [id number] [place] [address] [id number] December, [facility] [id number] [place] [address] [id number] December, [facility] [id number], [place] [id number] December, Essential hypertension 401.9 [place] [id number] [place] [address] [id number] Nov, Essential hypertension 401.9 [facility] [id number] [place] [address] [id number] Nov, [facility] [id number] [place] [address] [id number] Nov, [facility] [id number] [place] [address] [id number] Nov, [facility] [place] [facility] [address] [facility] [id number] [place] [address]- [address] Nov, [facility] [place] [facility] [address] [facility] [id number][place] [address]- 350[address] Nov, [facility] [place] [address] [facility] [id number], [place] [id number] Oct, [facility] [place] [facility] [address] [facility] [id number], [place] [address] 130[address] Oct, [facility] [place] [address] [facility] [id number], [place] [id number] Oct, [facility] [place] [facility] [address] [facility] [id number], [place] [address]- 2676 Oct, [facility] [place] [facility] [address] [facility] [id number][place] [address] 4[address] Oct, [facility] [place] [address] [id number], [place] [id number] Oct, [facility] [address] [facility] [id number], [place] [id number] Oct, [facility] [place] [facility] [address] [facility] [id number][place] [address]- 8[address] Oct, [facility] [place] [facility] [address] [facility] [id number] [address]- 5[address] Sep, [facility] [place] [address] [id number], [place] [id number] Sep, [facility] [address] [facility] [id number], [place] [id number] Sep, [facility] [place] [facility] [address] [facility] [id number], [place] [address]- 54[address] Sep, [facility] [address] [facility] [id number], [place] [id number] Aug, [facility] [place] [facility] [address] [facility] [id number], [place] [address]- 6[address] Aug, [facility] [address] [facility] [id number], [place] [id number] Aug, [facility] [address] [facility] [id number] [address]- 5[address] Aug, [facility] [place] [address] [facility] [id number], [place] [id number] Aug, [facility] [address] [facility] [id number], [place] [address]- 85[address] Aug, [facility] [place] [facility] [address] [facility] [id number][place] [address]- 94[address] Aug, [facility] [address] [facility] [id number], [place] [id number] Aug, [facility] [place] [facility] [address] [facility] [id number], [place] [address]- 4709 Jul, [facility] [place] [facility] [address]00565100[place] [address]- 4627 Jul, [facility] [address] [facility] [id number], [place] [id number] Jul, [facility] [place] [facility] [address] [facility] [id number] [address]- 6070 Jul, [facility] [address] [facility] [id number], [place] [id number] Jul, [facility] [place] [facility] [address] [facility] [id number], [place] [address]- 2277 Jul, [facility] [address] [facility] [id number], [place] [id number] Jul, [facility] [place] [facility] [address] [facility] [id number] [address]- 0[address] Jul, [facility] [place] [facility] [address] [facility] [id number], [place] [address]- 7584 May, [facility] [address] [facility] [id number], [place] [id number] May, [facility] [address] [facility] [id number], [place] [id number] May, [facility] [place] [facility] [address] [facility] [id number] [place] [address]- 1012 May, [facility] [address] [id number] [place] [id number] Apr, [facility] [place] [facility] [address] [id number] [place] [address]- 1932 Apr, [facility] [address] [id number] [place] [id number] Mar, [facility] [place] [facility] [address] [facility] [id number] [place] [address]- 8191 Mar, [facility] [place] [facility] [address] [facility] [id number] [place] [address]- 6630 Mar, [facility] [place] [facility] [address] [facility] [id number] [place] [address]- 9166 Mar, [facility] [place] [address] [id number], [place] [id number] Mar, [facility] [address] [facility] [id number], [place] [id number] Feb, [facility] [place] [facility] [address] [facility] [id number], [place] [address]- 8203 Feb, [facility] [address] [facility] [id number], [place] 513[address]61 Jan, [facility] [place] [facility] [address] [facility] [id number][place] [address]- 0895 Jan, [facility] [place] [facility] [address] [facility] [id number][place] [address]- 5[address] Jan, [facility] [address] [id number] [place] [id number] Jan, [facility] [address] [id number] [place] [id number] Jan, [facility] [place] [facility] [address] [facility] [id number] [place] [address]- 7057 Jan, [facility] [address] [id number], [place] 2[address] December, [facility] [place] [facility] [address] [id number] [place] [address]- 2546 December, [facility] [place] [facility] [address] [facility] [id number] [place] [address]- 2546 Nov, [facility] [place] [facility] [address] [facility] [id number] [place] [address]- 2546 Nov, [facility] [address] [facility] [id number] [place] [id number] Nov, [facility] [place] [facility] [address] [facility] [id number] [place] [address]- 2546 Nov, [facility] [address] [id number] [place] [id number] Oct, [facility] [place] [facility] [address] [facility] [id number] [place] [address]- 2546 Oct, [facility] [place] [address] [facility] [id number] [place] [id number] Oct, [facility] [place] [facility] [address] [facility] [id number] [place] [address]- 2546 Oct, [facility] [place] [address] [facility] [id number], [place] 286248762 Oct, [facility] [place] [facility] [address] [facility] [id number], [place] [address]- 2546 Oct, [facility] [address] [facility] [id number], [place] 271454741 Oct, [facility] [place] [facility] [address] [facility] [id number], [place] [address]- 2546 Oct, [facility] [address] [id number] [place] [id number] Aug, [facility] [place] [facility] [address] [facility] [id number] [place] [address]- 2546 Aug, [facility] [address] [facility] [id number] [place] [id number] Jul, [facility] [place] [facility] [address] [facility] [id number][place] [address]- 3[address] Jul, [facility] [address] [facility] [id number], [place] [id number] Jun, [facility] [place] [facility] [address]00565100[place], [place] [address]- 2546 Jun, [facility] [place] [facility] [address]00565100[place] [address]- 2546 Jun, [facility] [address] [facility] [id number], [place] 125941746 Jun, [facility] [address] [facility] [id number], [place] 095737951 May, [facility] [place] [facility] [address] [id number], [place] [address]- 5266 May, [facility] [place] [facility] [address]00565100[place], [place] [address]- 2437 May, [facility] [id number], [place] 12605[address] May, [facility] [place] [facility] [address]00565100[place] [address]- 1465 May, [facility] [id number], [place] 60[address]47841 May, [facility] [place] [facility] [address]00565100[place], [place] [address]- 5816 May, [facility] [place] [address] [place] [address] [id number], [place] [id number] May, [facility] [place] [facility] [address]00565100[place], [place] [address] 2546 Apr, [facility] [place] [facility] [address] [facility] [id number], [place] [address]- 9676 Apr, [facility] [address] [facility] [id number] [id number] Apr, [facility] [id number] [address] Apr, [facility] [id number] [address] Mar, [facility] [place] [address] [id number] [place] [id number] Mar, [facility] [place] [address] [id number] [place] [id number] Feb, [facility] [place] [address] [id number] [place] [id number] Feb, [facility] [place] [address] [id number] [place] [id number] Feb, [facility] [place] [address] [id number] [place] [id number] Jan, [facility] [address] [facility] [id number], [place] [address] Jan, [facility] [place] [address] [id number] [place] [id number] Jan, [facility] [place] [address] [id number] [place] [id number] December, [facility] [address] [facility] [id number], [place] [address] December, [facility] [place] [address] [id number] [place] [id number] December, [facility] [place] [address] [id number] [place] [id number] December, [facility] [place] [address] [id number] [place] [id number] Nov, [facility] [place] [address] [id number] [place] [id number] Nov, [facility] [address] [facility] [id number] [address] Nov, [facility] [address] [id number] [place] [id number] Nov, [facility] [address] [id number] [place] [id number] Oct, [facility] [address] [id number] [place] [id number] Oct, [facility] [address] [id number] [place] [id number] Oct, [facility] [address] [id number] [place] [id number] Oct, [facility] [address] [id number] [place] [id number] Sep, [facility] [address] [id number] [place] [id number] Sep, [facility] [place] [facility] [address] [id number], [place] [address] Aug, [facility] [place] [facility] [address] [id number] [place] [address] Aug, [facility] [address] [id number] [place] [id number] Aug, [facility] [address] [id number] [place] [id number] Aug, [facility] [address] [id number] [place] [id number] Jul, [facility] [address] [id number] [place] [id number] Jul, [facility] [address] [facility] [id number][place] [address]69[place] [address] Jul, [facility] [address] [facility] [id number][place] [address] [address] Jul, [facility] [address] [id number] [place] [id number] Jul, [facility] [place] [facility] [address] [facility] [id number] [address] Jul, [facility] [address] [id number] [place] [id number] Jul, [facility] [place] [facility] [address] [facility] [id number] [address] Jul, [facility] [place] [facility] [address] [facility] [id number][place] [address] Jul, [facility] [address] [id number][place] [address] Jul, [facility] [address] [id number] [place] [id number] Jul, [facility] [place] [facility] [address] [facility] [id number][place] [address] Jul, [facility] [address] [id number] [place] [id number] Jun, [facility] [place] [facility] [address] [id number], [place] [address] Jun, [facility] [place] [facility] [address] [id number], [place] [address]47 Jun, [facility] [address] [id number][place] [id number] Jun, [facility] [place] [facility] [address] [facility] [id number], [place]0066[place] [address] Jun, [facility] [place] [facility] [address] [facility] [id number][place] [address] Jun, [facility] [address] [id number], [place] [id number] Jun, [facility] [place] [facility] [address] [facility] [id number][place] [address] Jun, [facility] [address] [id number], [place] [id number] Jun, [facility] [place] [facility] [address] [facility] [id number], [place] [address] Jun, [facility] [address] [id number][place] [id number] May, [facility] [place] [facility] [address] [facility] [id number], [place] [address] Apr, [facility] [place] [facility] [address] [facility] [id number][place] [address]26 Apr, [facility] [address] [id number], [place] [id number] Apr, [facility] [address] [id number] [id number] Apr, [facility] [address] [id number] [place] [id number] Apr, [facility] [address] [id number] [place] Apr, [facility] [address] [id number] [id number] Apr, [facility] [address] [id number] [place] [id number] Mar, [facility] [address] [id number] [place] [id number] Mar, [facility] [address] [id number] [place] [id number] Mar, [facility] [address] [id number] [place] [id number] Mar, [facility] [address] [id number] [id number] Mar, [facility] [address] [id number] [place] 606[address] Mar, [facility] [address] [id number] [place] [id number] Mar, [facility] [address] [id number] [id number] Feb, [facility] [address] [id number] [place] [id number] Feb, [facility] [address] [id number] [place] [id number] Jan, [facility] [address] [id number] [id number] Jan, [facility] [address] [id number] [place] 258[place] Jan, [facility] [address] [id number] [place] [address]6836[address] Jan, [facility] [address] [id number] [place] [id number] Jan, [facility] [address] [id number] [place] [address]84[place] Jan, [facility] [address] [id number] [place] December, [facility] [address] [id number] [place] [address]149 Nov, [facility] [address] [id number] [place] [address] Oct, [facility] [address] [id number] [place] 004809497 Oct, [facility] [address] [id number] [place] 7836[place]703 Oct, [facility] [address] [id number], [place] [address] Oct, [facility] [address] [id number] [place] [id number] Oct, [facility] [address] [id number] [id number] Oct, [facility] [address] [id number] [place]11 Oct, [facility] [address] [id number] [place] [id number] Oct, [facility] [address] [id number] [place] 818573912 Oct, [facility] [address] [id number] [place] [id number] Oct, [facility] [address] [id number] [place] [id number] Sep, [facility] [address] [facility] [id number], [place] [address] Sep, [facility] [address] [id number] [place] [id number] Sep, [facility] [address] [id number] [place] [id number] Aug, [facility] [address] [id number] [place] [id number] Aug, [facility] [address] [id number] [place] [id number] Aug, [facility] [address] [id number] [place] [address]- [address] Aug, [facility] [place] [facility] [address] [id number] [place] [address]- [address] Jul, [facility] [place] [facility] [address] [id number] [place] [address]- 5743 Jul, [facility] [place] [facility] [address] [id number] [place] [address]- [address]376 Jul, [facility] [place] [facility] [address] [id number] [place] [address]- 9880 Jul, [facility] [place] [facility] [address] [id number] [place] [address]- [address]26 Jun, [facility] [place] [facility] [address] [id number] [place] [address]- 2442 Jun, [facility] [place] [facility] [address] [id number] [place] [address]- 9990 May, [facility] [place] [facility] [address] [id number] [place] [address]- [address] May, [facility] [place] [facility] [address] [id number] [place] [address]- 5828 December, [facility] [place] [facility] [address] [id number] [place] [address]- 1806 December, [facility] [place] [facility] [address] [id number] [place] [address]- 2022 Aug, [facility] [place] [facility] [address] [id number] [place] [address]- 8765 Jul, [facility] [place] [facility] [address] [id number] [place] [address]- 7006 Jul, [facility] [place] [facility] [address] [id number] [place] [address]- 9975 Jul, [facility] [place] [facility] [address] [id number] [place]- [address] 16 Jul, 2010 [facility] [address] [id number] [place]- 379[address] 16 Jul, 2010 [facility] [place] [facility] [address] [id number] [place] [address]- 6874 03 Jul, 2010 [facility] [address] [id number] [place] [address]- 3046 30 Jun, 2010 [facility] [place] [facility] [address] [id number] [place] [address]- 6806 30 Jun, 2010 [facility] [address] [id number] [place] 1314 29 Jun, 2010 [facility] [address] [id number] [place] [address]- 7285 23 Jun, 2010 [facility] [address] [id number] [place] [address]- 5826 Jun, [facility] [address] [id number][place] [address]- [address] 14 May, 2010 [facility] [address] [id number] [place] [address]- 4083 December, [facility] [address] [facility] [id number] [place] [address]- [address]76 December, [facility] [address] [id number] [place] [address]- 5201 Oct, [facility] [place] [facility] [address] [id number], [place] [address]- [address] 31 Jul, 2009 [facility] [place] [facility] [address] [id number], [place] [address]- 5561 24 Jul, 2009 [facility] [place] [facility] [address] [id number], [place] [address]- [address]138 03 Jul, 2009 [facility] [place] [facility] [address] [id number], [place] [address]- 8666 30 Jun, 2009 [facility] [place] [facility] [address] [facility] [id number] [place] [address]- [address] May, [facility] [address] [facility] [id number] [place] [address]- 9871 Jun, IMMUNIZATIONS No Known Immunizations SOCIAL HISTORY Never Assessed REASON FOR VISIT Requests return call PLAN OF CARE VITAL SIGNS MEDICATIONS Unknown [...] 04/2018 Hospitalization History surgeries, childbirth Hospitalization History [facility] N/V/D 05/2015 Hospitalization History [facility] influenza 08/2017 Hospitalization History CHF exacerbation 08/2017 Hospitalization History Risa Medley, MRSA infection in paritneal site, port removed wound care to abd, IV antibiotics 04/2018
--- OUTSIDE RECORDS SUMMARY | 2018-07-11 11:09 | XMS REPORT ---
Author Author JOSEP GONG [facility] Address [address] [place] [address] Care Team Providers Care Commercial Loan Specialist Name Role Phone JOSEP GONG Unavailable PROBLEMS Type Condition ICD9-CM Code YHC80-JM Code Onset Dates Condition Status SNOMED Code Problem Chronic obstructive pulmonary disease with acute exacerbation J44.1 Active 550885231 Problem Chronic obstructive pulmonary disease, unspecified COPD type J44.9 Active 55184016 Problem Vitamin D deficiency, unspecified E55.9 Active 02961800 Problem History of MRSA infection Z86.14 Active 362312422 Problem Type 2 diabetes mellitus with other diabetic kidney complication E11.29 Active 708811506 Problem Gastric reflux K21.9 Active 427702426 Problem Right knee pain M25.561 Active 91806354 Problem Sprain of right knee, unspecified ligament, initial encounter S83.91XA Active 25207386 Problem Body mass index (BMI) of 40.0-44.9 in adult Z68.41 Active 952894743 Problem Obesity, unspecified E66.9 Active 30930614690501 Problem Paroxysmal atrial fibrillation I48.0 Active 963850580 Problem Chronic congestive heart failure, unspecified heart failure type I50.9 Active 53334443 Problem Chronic renal disease, unspecified stage N18.9 Active 187049628 Problem Chronic kidney disease, stage IV (severe) N18.4 Active 399541887 Problem Essential hypertension I10 Active 18256063 Problem Hyperlipidemia, unspecified E78.5 Active 93961606 Problem Renal osteodystrophy N25.0 Active 45113415 Problem Essential (primary) hypertension I10 Active 53774521 Problem Venous (peripheral) insufficiency I87.2 Active 05733650 Problem Anemia of renal disease D63.1 Active 044133603 Problem Type 2 diabetes mellitus with diabetic nephropathy E11.21 Active 781700605 Problem Abscess L02.91 Active 621846277 Problem Proteinuria R80.9 Active 09999823 Problem Chronic bronchitis, unspecified chronic bronchitis type J42 Active 29119193 ALLERGIES No Information ENCOUNTERS Encounter Location Date Diagnosis [facility] [address] [facility] [id number] [place] [id number] May, [facility] [place] [id number] [place], [place] [id number] May, [facility] [address] [id number][place] [id number] May, [facility] [place] [id number] [place] [address] [id number] May, Abscess L02.91 ; History of MRSA infection Z86.14 and Body mass index (BMI ) 70 or greater, adult Z68.45 [facility] [id number] [place] [address] [id number] Apr, [facility] [place] [address] [place] [address] [id number] Apr, Local infection of the skin and subcutaneous tissue, unspecified L08.9 ; Other injury of unspecified body region, initial encounter T14.8XXA and History of MRSA infection Z86.14 [facility] [address] [facility] [id number] RIVER[place] [id number] Mar, Type 2 diabetes mellitus with diabetic nephropathy E11.21 and Gastric reflux K21.9 [facility] [id number] [place] [address] [id number] Mar, Type 2 diabetes mellitus with diabetic nephropathy E11.21 ; Gastric reflux K21.9 and Chronic kidney disease, stage IV (severe) N18.4 [facility] [address] [id number] [place]IVER[place] [id number] Feb, [facility] [id number] RIVER[place] [id number] Feb, Type 2 diabetes mellitus with other diabetic kidney complication E11.29 [facility] [id number] [place] [address] [id number] Jan, Body mass index (BMI) 70 or greater, adult Z68.45 and Type 2 diabetes mellitus with other diabetic kidney complication E11.29 [facility] [id number] [place] [address] [id number] Nov, Body mass index (BMI) 70 or greater, adult Z68.45 ; Chronic obstructive pulmonary disease, unspecified COPD type J44.9 ; Chronic kidney disease, stage IV (severe) N18.4 and Gastric reflux K21.9 [facility] [id number] [place] [address] [id number] Oct, Body mass index (BMI) 70 or greater, adult Z68.45 ; Type 2 diabetes mellitus with other diabetic kidney complication E11.29 ; Chronic obstructive pulmonary disease with acute exacerbation J44.1 and Paroxysmal atrial fibrillation I48.0 [place] [id number] [place] [address] [id number] Oct, [place] [id number] [place] [address] [id number] Oct, Type 2 diabetes mellitus with diabetic nephropathy E11.21 ; Chronic renal disease, unspecified stage N18.9 ; Chronic congestive heart failure, unspecified heart failure type I50.9 and Chronic obstructive pulmonary disease with acute exacerbation J44.1 [place] [id number] [place] [address] [id number] Sep, [place] [id number] [place] [address] [id number] Sep, [place] [id number] [place] [address] [id number] Sep, [facility] [id number] [place] [address] Sep, Type 2 diabetes mellitus with diabetic nephropathy E11.21 [place] [id number] [place] [address] [id number] Aug, Influenza J11.1 and Essential (primary) hypertension I10 [facility] [address] [id number]- [address] Aug, [place] [id number] [place] [address] [id number] Jul, Type 2 diabetes mellitus with diabetic nephropathy E11.21 ; Essential ( primary) hypertension I10 and Chronic obstructive pulmonary disease, unspecified COPD type J44.9 [facility] [address] [id number] [id number] Jun, Dental caries K02.9 [facility] [address] [place] [address] [id number] May, Cough R05 ; Chronic obstructive pulmonary disease, unspecified COPD type J44.9 ; Shortness of breath R06.02 ; Obesity, unspecified E66.9 ; Body mass index (BMI) of 40.0-44.9 in adult Z68.41 and Encounter for immunization Z23 [facility] [address]005[address] [id number] May, Dental examination Z01.20 [place] [id number] [place] [address] [id number] May, Essential hypertension I10 [place] [id number] [place] [address] [id number] Apr, Anemia of renal disease D63.1 ; Type 2 diabetes mellitus with other diabetic kidney complication E11.29 ; Vitamin D deficiency, unspecified E55.9 and Chronic renal disease, unspecified stage N18.9 [facility] [address]00565100[place], [place] [address] Mar, [place] [id number] [place] [address] [id number] Mar, Type 2 diabetes mellitus with other diabetic kidney complication E11.29 ; Essential hypertension I10 ; Chronic renal disease, unspecified stage N18.9 and Chronic obstructive pulmonary disease with acute exacerbation J44.1 [facility] [address] [place] [address] [id number] Feb, [facility] [address] [place] [address] [id number] Feb, Chronic renal disease, unspecified stage N18.9 ; Essential (primary) hypertension I10 and Type 2 diabetes mellitus with other diabetic kidney complication E11.29 [facility] [id number] [place] [address] [id number] Feb, Type 2 diabetes mellitus with other diabetic kidney complication E11.29 ; Chronic kidney disease, stage IV (severe) N18.4 ; Renal osteodystrophy N25.0 ; Anemia of renal disease D63.1 and Essential (primary) hypertension I10 [address] [place] [address] [id number] December, [place] [id number] [place] [address] [id number] December, Chronic obstructive pulmonary disease with acute exacerbation J44.1 ; Essential (primary) hypertension I10 ; Low back pain M54.5 and Right knee pain M25.561 [place] [id number] [place] [address] [id number] Nov, Chronic renal disease, unspecified stage N18.9 ; Essential hypertension I10 ; Type 2 diabetes mellitus with other diabetic kidney complication E11.29 and Chronic obstructive pulmonary disease with acute exacerbation J44.1 [place] [id number] [place] [address] [id number] Nov, Chronic renal disease, unspecified stage N18.9 ; Hyperlipidemia, unspecified E78.5 and Essential hypertension I10 [place] [id number] [place] [address] [id number] Oct, Chronic bronchitis, unspecified chronic bronchitis type J42 and Type 2 diabetes mellitus with diabetic nephropathy E11.21 [place] [id number] [place] [address] [id number] Sep, Chronic bronchitis, unspecified chronic bronchitis type J42 ; Essential ( primary) hypertension I10 and Type 2 diabetes mellitus with other diabetic kidney complication E11.29 [address] [place] [address] [id number] Sep, Chronic obstructive pulmonary disease with acute exacerbation J44.1 [place] [id number] [place] [address] [id number] Aug, Type 2 diabetes mellitus with diabetic nephropathy E11.21 ; Chronic kidney disease, stage IV (severe) N18.4 ; Essential (primary) hypertension I10 and Encounter for immunization Z23 [place] [id number] [place] [address] [id number] Aug, Chronic kidney disease, stage IV (severe) N18.4 ; Type 2 diabetes mellitus with diabetic nephropathy E11.21 and Type 2 diabetes mellitus with hyperglycemia E11.65 [facility] [id number] [place] [address] [id number] May, Anemia of renal disease D63.1 ; Essential (primary) hypertension I10 ; Renal osteodystrophy N25.0 ; Proteinuria R80.9 ; Chronic kidney disease, stage IV (severe) N18.4 and Type 2 diabetes mellitus with other diabetic kidney complication E11.29 [place] [id number] [place] [address] [id number] Mar, Type 2 diabetes mellitus with other diabetic kidney complication E11.29 ; Essential hypertension I10 ; Chronic renal disease, unspecified stage N18.9 and TMJ (temporomandibular joint disorder) M26.60 [place] [id number] [place] [address] [id number] Jan, Chronic kidney disease, stage IV (severe) N18.4 and Hyperlipidemia, unspecified E78.5 [place] [id number] [place] [address] [id number] December, Type 2 diabetes mellitus with other diabetic kidney complication E11.29 ; Abscess L02.91 and Chronic kidney disease, stage IV (severe) N18.4 [place] [id number] [place] [address] [id number] December, Abscess L02.91 [place] [id number] [place] [address] [id number] December, [address] [place] [address] [id number] Oct, Renal osteodystrophy N25.0 ; Chronic kidney disease, stage IV (severe) N18.4 and Vitamin D deficiency E55.9 [address] [place] [address] [id number] Oct, [place] [address] [place] [address] [id number] Sep, Type 2 diabetes mellitus with other diabetic kidney complication E11.29 ; Essential hypertension I10 and Chronic airway obstruction, not elsewhere classified J44.9 [place] [id number] [place] [address] [id number] Sep, [address]00565100[place] [id number] Aug, [address] [place] [address] [id number] Jul, [place] [address] [place] [address] [id number] Jul, [place] [address] [place] [address] [id number] Jul, Chronic kidney disease, stage IV (severe) N18.4 ; Renal osteodystrophy N25.0 and Proteinuria R80.9 [place] [address] [address] Jul, [facility] [address] [place] [address] [id number] [place] [address] [id number] Jun, [facility] [address] [place] [address] [id number] [place] [address] [id number] Jun, [place] [id number] [place] [address] [id number] Jun, Diabetes with renal manifestations, type II or unspecified type, uncontrolled 250.42 and Right knee pain M25.561 [place] [address] [address] May, [place] [id number] [place] [address] [id number] May, Abscess L02.91 ; Encounter for immunization Z23 and Sprain of right knee, unspecified ligament, initial encounter S83.91XA [place] [id number] [place] [address] [id number] May, Abscess L02.91 [facility] [id number] [place] [address] [id number] May, [place] [id number] [place] [address] [id number] Apr, Diabetes with renal manifestations, type II or unspecified type, uncontrolled 250.42 and PPV23 (PNEUMOVAX) DX V03.[address] [place] [id number] Mar, [facility] [id number] [place] [id number] Mar, Proteinuria 791.0 ; Renal osteodystrophy 588.0 ; Chronic kidney disease, Stage IV (severe) 585.4 ; Benign essential hypertension 401.1 and Vitamin D deficiency 268.9 [facility] [id number] [place] [address] [id number] Feb, Avulsion fracture of ankle 824.8 [facility] [id number] [place] [address] [id number] Feb, [place] [id number] [place] [address] [id number] Feb, [facility] [id number] [place] [address] [id number] Feb, Diabetes with renal manifestations, type II or unspecified type, uncontrolled 250.42 [facility] [id number] [place] [address] [id number] Jan, Diabetes with renal manifestations, type II or unspecified type, uncontrolled 250.42 [facility] [id number] [place] [address] [id number] December, Diabetes with renal manifestations, type II or unspecified type, uncontrolled 250.42 and Unspecified essential hypertension 401.9 [facility] [id number] [place] [address] [id number] December, [facility] [id number] [place] [address] [id number] December, [facility] [id number] [place] [id number] December, Essential hypertension 401.9 [place] [id number] [place] [address] [id number] Nov, Essential hypertension 401.9 [facility] [id number] [place] [address] [id number] Nov, [facility] [id number] [place] [address] [id number] Nov, [facility] [id number] [place] [address] [id number] Nov, [facility] [place] [facility] [address] [facility] [id number] [place] [address] Nov, [facility] [place] [facility] [address] [facility] [id number], [place] [address]- 00[address] Nov, [facility] [address] [facility] [id number] [place] [id number] Oct, [facility] [place] [facility] [address] [facility] [id number], [place] [address]- 3066 Oct, [facility] [address] [facility] [id number] [place] [id number] Oct, [facility] [place] [facility] [address] [facility] [id number], [place] [address]- 0[address] Oct, [facility] [place] [facility] [address] [facility] [id number], [place] [address] 3[address] Oct, [facility] [address] [id number] [place] [id number] Oct, [facility] [address] [facility] [id number] [place] [id number] Oct, [facility] [place] [facility] [address] [facility] [id number], [place] [address]- 9676 Oct, [facility] [place] [facility] [address] [facility] [id number], [place] [address]- 1246 Sep, [facility] [address] [id number] [place]IVER[place] [id number] Sep, [facility] [address] [facility] [id number] [place]IVER[place] [id number] Sep, [facility] [place] [facility] [address] [facility] [id number], [place] [address]- 0666 Sep, [facility] [address] [facility] [id number] [place]IVER[place] [id number] Aug, [facility] [place] [facility] [address] [facility] [id number], [place] [address]- 9063 Aug, [facility] [address] [facility] [id number] [place] [id number] Aug, [facility] [address] [facility] [id number], [place] [address]- 3736 Aug, [facility] [address] [facility] [id number] [place] [id number] Aug, [facility] [address] [facility] [id number], [place] [address]- 1221 Aug, [facility] [place] [facility] [address] [facility] [id number], [place] [address]- 9327 Aug, [facility] [address] [facility] [id number] [place] [id number] Aug, [facility] [place] [facility] [address] [facility] [id number], [place] [address]- 7704 Jul, [facility] [place] [facility] [address]005[address], [place] [address] 4[address] Jul, [facility] [address] [facility] [id number] [place] [id number] Jul, [facility] [place] [facility] [address] [facility] [id number], [place] [address]- 3382 Jul, [facility] [address] [facility] [id number] [place]IVER[place] [id number] Jul, [facility] [place] [facility] [address] [facility] [id number], [place] [address]- 6690 Jul, [facility] [address] [facility] [id number] [place] [id number] Jul, [facility] [place] [facility] [address] [facility] [id number], [place] [address]- 8451 Jul, [facility] [place] [facility] [address] [facility] [id number], [place] [address]- 4992 May, [facility] [address] [facility] [id number] [place]IVER[place] [id number] May, [facility] [address] [facility] [id number] [place] [id number] May, [facility] [place] [facility] [address] [facility] [id number] [place] [address]- 4898 May, [facility] [address] [id number] [place] [id number] Apr, [facility] [place] [facility] [address] [id number] [place] [address]- 93[address] Apr, [facility] [address] [id number] [place] [id number] Mar, [facility] [place] [facility] [address] [facility] [id number] [place] [address]- 6959 Mar, [facility] [place] [facility] [address] [facility] [id number] [place] [address]- 9672 Mar, [facility] [place] [facility] [address] [facility] [id number] [place] [address]- 7632 Mar, [facility] [address] [id number] [place] 816[address]2333 Mar, [facility] [address] [facility] [id number] [place]IVER[place] [id number] Feb, [facility] [place] [facility] [address] [facility] [id number], [place] [address]- 6712 Feb, [facility] [address] [facility] [id number] [place] [id number] Jan, [facility] [place] [facility] [address] [facility] [id number], [place] [address]- 0892 Jan, [facility] [place] [facility] [address] [facility] [id number], [place] [address]- 0542 Jan, [facility] [address] [id number] [place] [id number] Jan, [facility] [address] [id number] [place] [id number] Jan, [facility] [place] [facility] [address] [facility] [id number] [place] [address]- 5390 Jan, [facility] [address] [id number] [place] [address] December, [facility] [place] [facility] [address] [id number] [place] [address]- 2546 December, [facility] [place] [facility] [address] [facility] [id number] [place] [address]- 2546 Nov, [facility] [place] [facility] [address] [facility] [id number] [place] [address]- 2546 Nov, [facility] [address] [facility] [id number] [place] [id number] Nov, [facility] [place] [facility] [address] [facility] [id number] [place] [address]- 2546 Nov, [facility] [address] [id number] [place] [id number] Oct, [facility] [place] [facility] [address] [facility] [id number] [place] [address]- 2546 Oct, [facility] [address] [facility] [id number] [place] [id number] Oct, [facility] [place] [facility] [address] [facility] [id number] [place] [address]- 2546 Oct, [facility] [address] [facility] [id number] [place] [address] Oct, [facility] [place] [facility] [address] [facility] [id number], [place] [address]- 2546 Oct, [facility] [address] [facility] [id number] [place]IVER[place] [address]53[address] Oct, [facility] [place] [facility] [address] [facility] [id number], [place] [address]- 2546 Oct, [facility] [address] [id number] [place] [id number] Aug, [facility] [place] [facility] [address] [facility] [id number] [place] [address]- 2546 Aug, [facility] [address] [facility] [id number] [place] [address]48[address] Jul, [facility] [place] [facility] [address] [facility] [id number], [place] [address]- 2224 Jul, [facility] [address] [facility] [id number] [place] [id number] Jun, [facility] [place] [facility] [address]65[address], [place] [address]- 2546 Jun, [facility] [place] [facility] [address]65[address], [place] [address]- 2546 Jun, [facility] [address] [facility] [id number] [place] [id number] Jun, [facility] [address] [facility] [id number] [place] [id number] May, [facility] [place] [facility] [address] [id number], [place] [address]- [address] May, [facility] [place] [facility] [id number], [place] [address] May, [facility] [place] [id number] [place] [id number] May, [facility] [id number], [place] [address] May, [facility] [place] [id number] [place] [id number] May, [facility] [id number], [place] [address] May, [facility] [address] [id number] [place] [id number] May, [facility] [id number], [place] [address] Apr, [facility] [address] [facility] [id number], [place] [address] Apr, [facility] [address] [facility] [id number] [place] [id number] Apr, [facility] [id number], [place] [address] Apr, [facility] [id number], [place] [address] Mar, [facility] [place] [address] [id number] [place] [id number] Mar, [facility] [address] [id number] [place] [id number] Feb, [facility] [address] [id number] [place] [id number] Feb, [facility] [place] [address] [id number] [place] [id number] Feb, [facility] [place] [address] [id number] [place] [id number] Jan, [facility] [address] [facility] [id number], [place] [address] Jan, [facility] [address] [id number] [place] [id number] Jan, [facility] [address] [id number] [place] [id number] December, [facility] [facility] [address] [facility] [id number], [place] [address] December, [facility] [address] [id number] [place] [id number] December, [facility] [address] [id number] [place] [id number] December, [facility] [address] [id number] [place] [id number] Nov, [facility] [address] [id number] [place] [id number] Nov, [facility] [address] [facility] [id number], [place] [address] Nov, [facility] [place] [address] [id number] [place] [id number] Nov, [facility] [address] [id number] [place] [id number] Oct, [facility] [address] [id number] [place] [id number] Oct, [facility] [address] [id number] [place] [id number] Oct, [facility] [address] [id number] [place] [id number] Oct, [facility] [address] [id number] [place] [id number] Sep, [facility] [address] [id number] [place] [id number] Sep, [facility] [address] [id number], [place] [address] Aug, [facility] [place] [facility] [address] [id number] [place] [address] Aug, [facility] [address] [id number] [place] [id number] Aug, [facility] [address] [id number] [place] [id number] Aug, [facility] [address] [id number] [place] [id number] Jul, [facility] [address] [id number] [place] [id number] Jul, [facility] [address] [facility] [id number][place] [address] [address] Jul, [facility] [address] [facility] [id number][place] [address] [address] Jul, [facility] [address] [id number] [place] [id number] Jul, [facility] [place] [facility] [address] [facility] [id number], [place] [address] Jul, [facility] [address] [id number] [place] [id number] Jul, [facility] [place] [facility] [address] [facility] [id number], [place] [address] Jul, [facility] [place] [facility] [address] [facility] [id number], [place] Jul, [facility] [address] [id number] [place] [id number] Jul, [facility] [address] [id number] [place] [id number] Jul, [facility] [place] [facility] [address] [facility] [id number], [place] [address] Jul, [facility] [address] [id number] [place] [id number] Jun, [facility] [place] [facility] [address] [id number], [place] [address] Jun, [facility] [place] [facility] [address] [id number], [place] [address] Jun, [facility] [address] [id number] [place] [id number] Jun, [facility] [place] [facility] [address] [facility] [id number], [place]10[place] [address] Jun, [facility] [place] [facility] [address] [facility] [id number], [place] [address] Jun, [facility] [address] [id number] [place] [id number] Jun, [facility] [place] [facility] [address] [facility] [id number], [place] [address] Jun, [facility] [address] [id number] [place] [id number] Jun, [facility] [place] [facility] [address] [facility] [id number], [place] [address] Jun, [facility] [address] [id number] [place] [id number] May, [facility] [place] [facility] [address] [facility] [id number], [place] [address] Apr, [facility] [place] [facility] [address] [facility] [id number], [place] [address] Apr, [facility] [address] [id number] [place] [id number] Apr, [facility] [address] [id number] [id number] Apr, [facility] [address] [id number] [place] [id number] Apr, [facility] [address] [id number] [id number] Apr, [facility] [address] [id number] [id number] Apr, [facility] [address] [id number] [id number] Mar, [facility] [address] [id number] [place] [id number] Mar, [facility] [address] [id number] [id number] Mar, [facility] [address] [id number] [place] [id number] Mar, [facility] [address] [id number] [place] [address] Mar, [facility] [address] [id number] [place] [address] Mar, [facility] [address] [id number] [place] [id number] Mar, [facility] [address] [id number] [place] [address] Feb, [facility] [address] [id number] [place] [id number] Feb, [facility] [address] [id number] [place] [address] Jan, [facility] [address] [id number] [place] Jan, [facility] [address] [id number] [place] [id number] Jan, [facility] [address] [id number] [place] [address]99[place] Jan, [facility] [address] [id number] [place] [id number] Jan, [facility] [address] [id number] [id number] Jan, [facility] [address] [id number] [place] [address]487[address] December, [facility] [address] [id number] [id number] Nov, [facility] [address] [id number] [place]71 Oct, [facility] [address] [id number] [place] [id number] Oct, [facility] [address] [id number] [place] [id number] Oct, [facility] [address] [id number], [place] [address] Oct, [facility] [address] [id number] [id number] Oct, [facility] [address] [id number] [place] [id number] Oct, [facility] [address] [id number] [place] 9[place]1044 Oct, [facility] [address] [id number] [place] Oct, [facility] [address] [id number] [id number] Oct, [facility] [address] [id number] [place] [id number] Oct, [facility] [address] [id number] [place] [id number] Sep, [facility] [address] [facility] [id number], [place] [address] Sep, [facility] [address] [id number] [id number] Sep, [facility] [address] [id number] [id number] Aug, [facility] [address] [id number] [place] [address]23 Aug, [facility] [address] [id number] [place] [id number] Aug, [facility] [address] [id number] [place] [address]- [address] Aug, [facility] [place] [facility] [address] [id number] [place] [address]- 9346 Jul, [facility] [place] [facility] [address] [id number] [place] [address]- [address] Jul, [facility] [place] [facility] [address] [id number] [place] [address]- [address] Jul, [facility] [place] [facility] [address] [id number] [place] [address]- 67[address] Jul, [facility] [place] [facility] [address] [id number] [place] [address]- 2356 Jun, [facility] [place] [facility] [address] [id number] [place] [address]- 3558 Jun, [facility] [place] [facility] [address] [id number] [place] [address]- [address] May, [facility] [place] [facility] [address] [id number] [place] [address]- [address]162 May, [facility] [place] [facility] [address] [id number] [place] [address]- 240[address] December, [facility] [place] [facility] [address] [id number] [place] [address]- 9606 December, [facility] [place] [facility] [address] [id number] [place] [address]- 7181 Aug, [facility] [place] [facility] [address] [id number] [place] [address]- 5272 Jul, [facility] [place] [facility] [address] [id number] [place] [address]- 9886 Jul, [facility] [place] [facility] [address] [id number] [place] [address]- [address] Jul, [facility] [place] [facility] [address] [id number] [place]- [address] 16 Jul, 2010 [facility] [address] [id number] [place]- [address] 16 Jul, 2010 [facility] [place] [facility] [address] [id number] [place] [address]- 6147 03 Jul, 2010 [facility] [address] [id number] [place] [address]- 2916 30 Jun, 2010 [facility] [place] [facility] [address] [id number] [place] [address]- 0663 30 Jun, 2010 [facility] [address] [id number] [place]- [address] 29 Jun, 2010 [facility] [address] [id number] [place] [address]- 5231 23 Jun, 2010 [facility] [address] [id number] [place] [address]- 3652 Jun, [facility] [address] [id number], [place] [address]- [address]83 14 May, 2010 [facility] [address] [id number] [place] [address]- [address] December, [facility] [address] [facility] [id number] [place] [address]- 5597 December, [facility] [address] [id number] [place] [address]- [address] Oct, [facility] [place] [facility] [address] [id number], [place] [address]- 1563 31 Jul, 2009 [facility] [place] [facility] [address] [id number], [place] [address]- 7870 24 Jul, 2009 [facility] [place] [facility] [address] [id number], [place] [address]- [address] 03 Jul, 2009 [facility] [place] [facility] [address] [id number], [place] [address]- 7360 30 Jun, 2009 [facility] [place] [facility] [address] [facility] [id number] [place] [address]- [address] May, [facility] [address] [facility] [id number] [place] [address]- [address]707 Jun, IMMUNIZATIONS No Known Immunizations SOCIAL HISTORY Never Assessed REASON FOR VISIT Refill request PLAN OF CARE VITAL SIGNS MEDICATIONS Medication Instructions Dosage Frequency Start Date End Date Duration Status Methocarbamol 500 mg Orally 2 times a day 1 tablets 12h May, Active Oxycodone-Acetaminophen 5-325 MG Orally 3 times a day must last 28 d 1 tablet as needed May, Active RESULTS No Results PROCEDURES No Known [...] Hospitalization History surgeries, childbirth Hospitalization History [facility] N/V/D 05/2015 Hospitalization History [facility] influenza 08/2017 Hospitalization History CHF exacerbation 08/2017 Hospitalization History Risa Medley, MRSA infection in paritneal site, port removed wound care to abd, IV antibiotics 04/2018
--- OUTSIDE RECORDS SUMMARY | 2018-07-11 11:10 | XMS REPORT ---
Author Author JOSEP GONG [facility] Address [address] [place] [address] Care Team Providers Care Exchange Architect Name Role Phone JOSEP GONG Unavailable PROBLEMS Type Condition ICD9-CM Code SNY12-UE Code Onset Dates Condition Status SNOMED Code Problem Chronic obstructive pulmonary disease with acute exacerbation J44.1 Active 455211562 Problem Chronic obstructive pulmonary disease, unspecified COPD type J44.9 Active 23742456 Problem Vitamin D deficiency, unspecified E55.9 Active 82466811 Problem History of MRSA infection Z86.14 Active 858857709 Problem Type 2 diabetes mellitus with other diabetic kidney complication E11.29 Active 345873706 Problem Gastric reflux K21.9 Active 702831530 Problem Right knee pain M25.561 Active 68938732 Problem Sprain of right knee, unspecified ligament, initial encounter S83.91XA Active 15313957 Problem Body mass index (BMI) of 40.0-44.9 in adult Z68.41 Active 797699313 Problem Obesity, unspecified E66.9 Active 31953124924636 Problem Paroxysmal atrial fibrillation I48.0 Active 709352967 Problem Chronic congestive heart failure, unspecified heart failure type I50.9 Active 04720056 Problem Chronic renal disease, unspecified stage N18.9 Active 795936520 Problem Chronic kidney disease, stage IV (severe) N18.4 Active 228006819 Problem Essential hypertension I10 Active 84116528 Problem Hyperlipidemia, unspecified E78.5 Active 77841518 Problem Renal osteodystrophy N25.0 Active 87574336 Problem Essential (primary) hypertension I10 Active 82848223 Problem Venous (peripheral) insufficiency I87.2 Active 56102475 Problem Anemia of renal disease D63.1 Active 783252927 Problem Type 2 diabetes mellitus with diabetic nephropathy E11.21 Active 016369543 Problem Abscess L02.91 Active 058117892 Problem Proteinuria R80.9 Active 18934808 Problem Chronic bronchitis, unspecified chronic bronchitis type J42 Active 87731986 ALLERGIES No Information ENCOUNTERS Encounter Location Date Diagnosis [id number] [place] [address] [id number] Jun, [place] [id number] [place] [address] [id number] May, Abscess L02.91 ; History of MRSA infection Z86.14 and Body mass index (BMI ) 70 or greater, adult Z68.45 [address] [id number] [place] [address] [id number] Apr, [place] [id number] [place] [address] [id number] Apr, Local infection of the skin and subcutaneous tissue, unspecified L08.9 ; Other injury of unspecified body region, initial encounter T14.8XXA and History of MRSA infection Z86.14 [address] [place] [address] [id number] Mar, Type 2 diabetes mellitus with diabetic nephropathy E11.21 and Gastric reflux K21.9 [address] [place] [address] [id number] Mar, Type 2 diabetes mellitus with diabetic nephropathy E11.21 ; Gastric reflux K21.9 and Chronic kidney disease, stage IV (severe) N18.4 [address] [place] [address] [id number] Feb, [address] [place] [address] [id number] Feb, Type 2 diabetes mellitus with other diabetic kidney complication E11.29 [address] [place] [address] [id number] Jan, Body mass index (BMI) 70 or greater, adult Z68.45 and Type 2 diabetes mellitus with other diabetic kidney complication E11.29 [address] [place] [address] [id number] Nov, Body mass index (BMI) 70 or greater, adult Z68.45 ; Chronic obstructive pulmonary disease, unspecified COPD type J44.9 ; Chronic kidney disease, stage IV (severe) N18.4 and Gastric reflux K21.9 [place] [id number] [place] [address] [id number] Oct, Body mass index (BMI) 70 or greater, adult Z68.45 ; Type 2 diabetes mellitus with other diabetic kidney complication E11.29 ; Chronic obstructive pulmonary disease with acute exacerbation J44.1 and Paroxysmal atrial fibrillation I48.0 [facility] [id number] [place] [address] [id number] Oct, [address] [id number] Oct, Type 2 diabetes mellitus with diabetic nephropathy E11.21 ; Chronic renal disease, unspecified stage N18.9 ; Chronic congestive heart failure, unspecified heart failure type I50.9 and Chronic obstructive pulmonary disease with acute exacerbation J44.1 [place] [id number] [place] [address] [id number] Sep, [place] [id number] [place] [address] [id number] Sep, [address] [id number] Sep, [facility] [address] [address] Sep, Type 2 diabetes mellitus with diabetic nephropathy E11.21 [place] [id number] [place] [address] [id number] Aug, Influenza J11.1 and Essential (primary) hypertension I10 [facility] [address] [address] Aug, [place] [id number] [place] [address] [id number] Jul, Type 2 diabetes mellitus with diabetic nephropathy E11.21 ; Essential ( primary) hypertension I10 and Chronic obstructive pulmonary disease, unspecified COPD type J44.9 [facility] [id number] [place] [address] [id number] Jun, Dental caries K02.9 [place] [id number] [place] [address] [id number] May, Cough R05 ; Chronic obstructive pulmonary disease, unspecified COPD type J44.9 ; Shortness of breath R06.02 ; Obesity, unspecified E66.9 ; Body mass index (BMI) of 40.0-44.9 in adult Z68.41 and Encounter for immunization Z23 [facility] [address] [id number] [id number] 06 May, 2017 Dental examination Z01.20 [facility] [id number] [place] [address] [id number] May, Essential hypertension I10 [facility] [id number] [place] [address] [id number] Apr, Anemia of renal disease D63.1 ; Type 2 diabetes mellitus with other diabetic kidney complication E11.29 ; Vitamin D deficiency, unspecified E55.9 and Chronic renal disease, unspecified stage N18.9 [facility] [address] [address] Mar, [facility] [id number] [place] [address] [id number] Mar, Type 2 diabetes mellitus with other diabetic kidney complication E11.29 ; Essential hypertension I10 ; Chronic renal disease, unspecified stage N18.9 and Chronic obstructive pulmonary disease with acute exacerbation J44.1 [facility] [address] [place] [address] [id number] Feb, [address] [place] [address] [id number] Feb, Chronic renal disease, unspecified stage N18.9 ; Essential (primary) hypertension I10 and Type 2 diabetes mellitus with other diabetic kidney complication E11.29 [facility] [address] [place] [address] [id number] Feb, Type 2 diabetes mellitus with other diabetic kidney complication E11.29 ; Chronic kidney disease, stage IV (severe) N18.4 ; Renal osteodystrophy N25.0 ; Anemia of renal disease D63.1 and Essential (primary) hypertension I10 [facility] [address] [id number] December, [place] [address] [place] [address] [id number] December, Chronic obstructive pulmonary disease with acute exacerbation J44.1 ; Essential (primary) hypertension I10 ; Low back pain M54.5 and Right knee pain M25.561 [address] [place] [address] [id number] Nov, Chronic renal disease, unspecified stage N18.9 ; Essential hypertension I10 ; Type 2 diabetes mellitus with other diabetic kidney complication E11.29 and Chronic obstructive pulmonary disease with acute exacerbation J44.1 [place] [address] [place] [address] [id number] Nov, Chronic renal disease, unspecified stage N18.9 ; Hyperlipidemia, unspecified E78.5 and Essential hypertension I10 [place] [address] [place] [address] [id number] Oct, Chronic bronchitis, unspecified chronic bronchitis type J42 and Type 2 diabetes mellitus with diabetic nephropathy E11.21 [place] [address] [place] [address] [id number] Sep, Chronic bronchitis, unspecified chronic bronchitis type J42 ; Essential ( primary) hypertension I10 and Type 2 diabetes mellitus with other diabetic kidney complication E11.29 [place] [address] [place] [address] [id number] Sep, Chronic obstructive pulmonary disease with acute exacerbation J44.1 [place] [address] [place] [address] [id number] Aug, Type 2 diabetes mellitus with diabetic nephropathy E11.21 ; Chronic kidney disease, stage IV (severe) N18.4 ; Essential (primary) hypertension I10 and Encounter for immunization Z23 [address] [place] [address] [id number] Aug, Chronic kidney disease, stage IV (severe) N18.4 ; Type 2 diabetes mellitus with diabetic nephropathy E11.21 and Type 2 diabetes mellitus with hyperglycemia E11.65 [place] [address] [place] [address] [id number] May, Anemia of renal disease D63.1 ; Essential (primary) hypertension I10 ; Renal osteodystrophy N25.0 ; Proteinuria R80.9 ; Chronic kidney disease, stage IV (severe) N18.4 and Type 2 diabetes mellitus with other diabetic kidney complication E11.29 [place] [address] [place] [address] [id number] Mar, Type 2 diabetes mellitus with other diabetic kidney complication E11.29 ; Essential hypertension I10 ; Chronic renal disease, unspecified stage N18.9 and TMJ (temporomandibular joint disorder) M26.60 [place] [address] [place] [address] [id number] Jan, Chronic kidney disease, stage IV (severe) N18.4 and Hyperlipidemia, unspecified E78.5 [place] [address] [place] [address] [id number] December, Type 2 diabetes mellitus with other diabetic kidney complication E11.29 ; Abscess L02.91 and Chronic kidney disease, stage IV (severe) N18.4 [address] [place] [address] [id number] December, Abscess L02.91 [place] [address] [place] [address] [id number] December, [place] [address] [place] [address] [id number] Oct, Renal osteodystrophy N25.0 ; Chronic kidney disease, stage IV (severe) N18.4 and Vitamin D deficiency E55.9 [address] [place] [address] [id number] Oct, [place] [address] [place] [address] [id number] Sep, Type 2 diabetes mellitus with other diabetic kidney complication E11.29 ; Essential hypertension I10 and Chronic airway obstruction, not elsewhere classified J44.9 [place] [address] [place] [address] [id number] Sep, [place] [address] [place] [address] [id number] Aug, [address] [place] [address] [id number] Jul, [place] [id number] [id number] Jul, [place] [address] [place] [address] [id number] Jul, Chronic kidney disease, stage IV (severe) N18.4 ; Renal osteodystrophy N25.0 and Proteinuria R80.9 [place] [id number] [place] [address] Jul, [address] [id number] [id number] Jun, [id number] [place] [address] [id number] Jun, [address] [place] [address] [id number] Jun, Diabetes with renal manifestations, type II or unspecified type, uncontrolled 250.42 and Right knee pain M25.561 [place] [id number] [place] [address] May, [address] [place] [address] [id number] May, Abscess L02.91 ; Encounter for immunization Z23 and Sprain of right knee, unspecified ligament, initial encounter S83.91XA [address] [place] [address] [id number] May, Abscess L02.[address] [id number] [id number] May, [address] [place] [address] [id number] Apr, Diabetes with renal manifestations, type II or unspecified type, uncontrolled 250.42 and PPV23 (PNEUMOVAX) DX V03.82 [address] [place] [address] [id number] Mar, [place] [address] [place] [address] [id number] Mar, Proteinuria 791.0 ; Renal osteodystrophy 588.0 ; Chronic kidney disease, Stage IV (severe) 585.4 ; Benign essential hypertension 401.1 and Vitamin D deficiency 268.9 [facility] [id number] [place] [address] [id number] Feb, Avulsion fracture of ankle 824.8 [facility] [place] [id number] [place] [address] [id number] Feb, [facility] [id number] [place] [address] [id number] Feb, [facility] [id number] [place] [address] [id number] Feb, Diabetes with renal manifestations, type II or unspecified type, uncontrolled 250.42 [facility] [address] [id number] Jan, Diabetes with renal manifestations, type II or unspecified type, uncontrolled 250.42 [facility] [id number] [place] [address] [id number] December, Diabetes with renal manifestations, type II or unspecified type, uncontrolled 250.42 and Unspecified essential hypertension 401.9 [facility] [id number] [place] [address] [id number] December, [facility] [id number] [place] [address] [id number] December, [facility] [id number] [place] [address] [id number] December, Essential hypertension 401.9 [facility] [id number] [place] [address] [id number] Nov, Essential hypertension 401.9 [facility] [id number] [place] [address] [id number] Nov, [facility] [id number] [place] [address] [id number] Nov, [facility] [id number] [place] [id number] Nov, [facility] [address] [id number]- [address] Nov, [facility] [address] [place] [address]- 6[address] Nov, [facility] [place] [address] [id number] [place] [id number] Oct, [facility] [place] [facility] [address] [facility] [id number] [address]- [address] Oct, [facility] [place] [address] [id number] [place] [id number] Oct, [facility] [place] [facility] [address] [facility] [id number], [place] [address]- 3446 Oct, [facility] [place] [facility] [address] [facility] [id number] [address]- 5016 Oct, [facility] [place] [address] [id number] [place] [id number] Oct, [facility] [place] [address] [id number] [place] [id number] Oct, [facility] [place] [facility] [address] [address] Oct, [facility] [place] [facility] [address] [facility] [id number] [address]- 7204 Sep, [facility] [place] [address] [id number] [place] [id number] Sep, [facility] [place] [address] [id number] OF [place] [id number] Sep, [facility] [place] [facility] [address] [facility] [id number], [place] [address]- 2546 Sep, [facility] [place] [address] [id number] OF [place] [id number] Aug, [facility] [place] [facility] [address] [facility] [id number] [address]- 8226 Aug, [facility] [place] [address] [facility] [id number] [place] [id number] Aug, [facility] [place] [facility] [address] [facility] [id number] [address]- 8096 Aug, [facility] [place] [address] [facility] [id number] [place] [id number] Aug, [facility] [place] [facility] [address] [facility] [id number][place] [address]- 3666 Aug, [facility] [place] [facility] [address] [facility] [id number] [address]- 6102 Aug, [facility] [place] [address] [facility] [id number] [place] [id number] Aug, [facility] [place] [facility] [address] [facility] [id number] [address]- 6053 Jul, [facility] [place] [facility] [address] [facility] [id number] [address]- 9817 Jul, [facility] [place] [address] [facility] [id number] OF [place] [id number] Jul, [facility] [place] [facility] [address] [facility] [id number] [address]- 5316 Jul, [facility] [place] [address] [facility] [id number] OF [place] [id number] Jul, [facility] [place] [facility] [address] [facility] [id number][place] [address]- 2605 Jul, [facility] [place] [address] [facility] [id number] [place] [id number] Jul, [facility] [place] [facility] [address] [facility] [id number] [address]- 2576 Jul, [facility] [place] [facility] [address] [facility] [id number] [address]- 2016 May, [facility] [place] [address] [facility] [id number] [place] [id number] May, [facility] [place] [address] [facility] [id number] [place] [id number] May, [facility] [place] [facility] [address] [facility] [id number] [address]- 3346 May, [facility] [place] [address] [facility] [id number] OF [place] [id number] Apr, [facility] [place] [facility] [address] [id number] [place] [address]- 0905 Apr, [facility] [place] [address] [facility] [id number] [place] [id number] Mar, [facility] [place] [facility] [address] [id number] [place] [address]- 8976 Mar, [facility] [place] [facility] [address] [facility] [id number] [place] [address]- 1236 Mar, [facility] [place] [facility] [address] [facility] [id number] [place] [address]- 1904 Mar, [facility] [place] [address] [id number] [place] [id number] Mar, [facility] [place] [address] [facility] [id number] [place] [id number] Feb, [facility] [place] [facility] [address] [place] [address]- 8286 Feb, [facility] [place] [address] [facility] [id number] [place] [id number] Jan, [facility] [place] [facility] [address] [facility] [id number] [place] [address]- 8046 Jan, [facility] [place] [facility] [id number] [place] [address]- 5945 Jan, [facility] [address] [id number] [place] [id number] Jan, [facility] [place] [address] [facility] [id number] [place] [id number] Jan, [facility] [place] [facility] [address] [facility] [id number] [place] [address]- 9613 Jan, [facility] [place] [address] [facility] [id number] [place] [id number] December, [facility] [place] [facility] [address] [facility] [id number] [place] [address]- 0536 December, [facility] [place] [facility] [address] [facility] [id number] [place] [address]- 9526 Nov, [facility] [place] [facility] [address] [facility] [id number] [place] [address]- 8066 Nov, [facility] [place] [address] [id number] [place] [id number] Nov, [facility] [place] [facility] [address] [facility] [id number] [place] [address]- 2546 Nov, [facility] [place] [address] [facility] [id number] [place] [id number] Oct, [facility] [place] [facility] [address] [facility] [id number] [place] [address]- 2546 Oct, [facility] [place] [address] [id number] [place] [id number] Oct, [facility] [place] [facility] [address] [id number] [place] [address]- 9056 Oct, [facility] [place] [address] [facility] [id number] [place] [id number] Oct, [facility] [place] [facility] [address] [facility] [id number] [address]- 3376 Oct, [facility] [place] [address] [facility] [id number] [place] [id number] Oct, [facility] [place] [facility] [address] [facility] [id number], [place] [address] 2546 Oct, [facility] [place] [address] [facility] [id number] [place] [id number] Aug, [facility] [place] [facility] [address] [facility] [id number], [place] [address]- 5306 Aug, [facility] [place] [address] [facility] [id number] [place] [id number] Jul, [facility] [place] [facility] [address] [facility] [id number] [address]- 2546 Jul, [facility] [place] [address] [facility] [id number] [place] [id number] Jun, [facility] [place] [facility] [address] [facility] [id number] [address]- 9256 Jun, [facility] [address] [facility] [id number], [place] [address]- 2546 Jun, [facility] [place] [address] [id number] [place] [id number] Jun, [facility] [place] [address] [facility] [id number] [place] [id number] May, [facility] [place] [facility] [address] [facility] [id number], [place] [address] 2546 May, [facility] [address] [facility] [id number] [address]- 3566 May, [facility] [place] [address] [facility] [id number] [place] [address] [id number] May, [facility] [address] [facility] [id number] [address] 2546 May, [facility] [place] [address] [id number] [place] 6[address]103 May, [facility] [address] [facility] [id number], [place] [address]- 3703 May, [facility] [place] [address] [facility] [id number] OF [place] [id number] May, [facility] [address] [facility] [id number], [place] [address] 2546 Apr, [facility] [place] [facility] [address] [facility] [id number], [place] [address] 2546 Apr, [facility] [place] [address] [facility] [id number] [place] [id number] Apr, [facility] [place] [facility] [address] [facility] [id number], [place] [address]- 2546 Apr, [facility] [place] [facility] [address] [facility] [id number], [place] [address] 2546 Mar, [facility] [place] [address] [facility] [id number] [place] [id number] Mar, [facility] [place] [address] [id number] [place] [address] [place] [id number] Feb, [facility] [place] [address] [id number] [place] [id number] Feb, [facility] [place] [address] [id number] [place] [id number] Feb, [facility] [place] [address] [id number] [place] [id number] Jan, [facility] [address] [facility] [id number] [place] [address] Jan, [facility] [place] [address] [id number] [place] [id number] Jan, [facility] [place] [address] [id number] [place] [id number] December, [facility] [address] [facility] [id number] [place] [address] December, [facility] [place] [address] [id number] [place] [id number] December, [facility] [address] [id number] [place] [id number] December, [facility] [address] [id number] [place] [id number] Nov, [facility] [address] [id number] [place] [id number] Nov, [facility] [address] [facility] [id number] [address] Nov, [facility] [address] [id number] [place] [id number] Nov, [facility] [address] [id number] [place] [id number] Oct, [facility] [address] [id number] [place] [id number] Oct, [facility] [address] [id number] [place] [id number] Oct, [facility] [address] [id number] [place] [id number] Oct, [facility] [address] [id number] [place] [id number] 08 Sep, 2012 [facility] [address] [id number] [place] [id number] Sep, [facility] [place] [facility] [address] [facility] [id number], [place] [address] Aug, [facility] [place] [facility] [address] [facility] [id number] [place] [address] Aug, [facility] [address] [id number] [place] [id number] Aug, [facility] [address] [id number] [place] [id number] Aug, [facility] [address] [id number] [place] [id number] Jul, [facility] [address] [id number] [place] [id number] Jul, [facility] [place] [facility] [address]00565100[place], [place] [address] Jul, [facility] [address] [facility] [id number] [address] Jul, [facility] [address] [id number] [place] [id number] Jul, [facility] [address]00565100[place], [place] [address] Jul, [facility] [address] [id number] [place] [id number] Jul, [facility] [place] [facility] [address] [facility] [id number] [address] Jul, [facility] [place] [facility] [address] [facility] [id number], [place] [address] Jul, [facility] [address] [facility] [id number] [place] [id number] Jul, [facility] [address] [id number] [place] [id number] Jul, [facility] [address] [facility] [id number], [place] [address] Jul, [facility] [address] [id number] [place] [id number] Jun, [facility] [place] [facility] [address] [facility] [id number], [place] [address] Jun, [facility] [place] [facility] [address] [facility] [id number] [address] Jun, [facility] [address] [id number] [place] [id number] Jun, [facility] [place] [facility] [address] [facility] [id number], [place] [address] Jun, [facility] [place] [facility] [id number] [place] [address] Jun, [facility] [id number] [place] [address] Jun, [facility] [place] [facility] [address]00565100[place], [place] [address] Jun, [facility] [address] [id number] [place] [id number] Jun, [facility] [place] [facility] [address]00565100[place], [place] [address] Jun, [facility] [address] [id number] [place] [id number] May, [facility] [place] [facility] [address]00565100[place], [place] [address] Apr, [facility] [place] [facility] [address] [facility] [id number], [place] [address] Apr, [facility] [address] [id number] [place] [id number] Apr, [facility] [address] [id number] [place] [id number] Apr, [facility] [address] [id number] [place] [id number] Apr, [facility] [address] [id number] [place] [address]46[address]118 Apr, [facility] [address] [id number] [place] [id number] Apr, [facility] [address] [id number] [id number] Mar, [facility] [address] [id number] [id number] Mar, [facility] [address] [id number] [place] [id number] Mar, [facility] [address] [id number] [place] [id number] Mar, [facility] [address] [id number] [id number] Mar, [facility] [address] [id number] [id number] Mar, [facility] [address] [id number] [place] [id number] Mar, [facility] [address] [id number] [place] [id number] Feb, [facility] [address] [id number] [id number] Feb, [facility] [address] [id number] [place] [id number] Jan, [facility] [address] [id number] [place] 15[place]110[address] Jan, [facility] [address] [id number] [place] [id number] Jan, [facility] [address] [id number] [id number] Jan, [facility] [address] [id number] [id number] Jan, [facility] [address] [id number] [place] 676[address]389 Jan, [facility] [address] [id number] [place] [id number] December, [facility] [address] [id number] [place] [address] Nov, [facility] [address] [id number] [place] [id number] Oct, [facility] [address] [id number] [place] [id number] Oct, [facility] [address] [id number] [id number] Oct, [facility] [address] [facility] [id number], [place] [address] Oct, [facility] [address] [id number] [place] [id number] Oct, [facility] [address] [id number] [place] [id number] Oct, [facility] [address] [id number] [place] [id number] Oct, [facility] [address] [id number] [place] 232092971 Oct, [facility] [address] [id number] [place] [id number] Oct, [facility] [address] [id number] [place] [id number] Oct, [facility] [address] [id number] [place] [id number] 14 Sep, 2011 [facility] [address]00565100[place] [address] Sep, [facility] [address] [id number] [place] [id number] Sep, [facility] [address] [id number] [place] [id number] Aug, [facility] [address] [id number] [place] [id number] Aug, [facility] [address] [id number] [place] [id number] Aug, [facility] [address]00565100[place], [place] [address] Aug, [facility] [address]00565100[place], [place] [address] Jul, [facility] [address] [id number] [place]- [address] 12 Jul, 2011 [facility] [place] [facility] [address] [id number] [place] [address]- 8942 Jul, [facility] [place] [facility] [address] [id number] [place] [address]- 5787 Jul, [facility] [place] [facility] [address] [id number] [place] [address]- 2829 Jun, [facility] [place] [facility] [address] [id number] [place] [address]- 4277 Jun, [facility] [place] [facility] [address] [id number] [place] [address]- 9524 May, [facility] [place] [facility] [address] [id number] [place] [address]- 4[address] May, [facility] [place] [facility] [address] [id number] [place] [address]- 8107 December, [facility] [address] [id number] [place] [address]- [address]708 December, [facility] [place] [facility] [address] [id number] [place] [address]- 7815 Aug, [facility] [place] [facility] [address] [id number] [place] [address]- 2170 29 Jul, 2010 [facility] [place] [facility] [address] [id number] [place] [address]- 5828 28 Jul, 2010 [facility] [place] [facility] [address] [id number] [place] [address]- 9540 23 Jul, 2010 [facility] [place] [facility] [address] [id number] [place] [address]- 5601 16 Jul, 2010 [facility] [place] [facility] [address] [id number] [place] [address]- 0060 16 Jul, 2010 [facility] [place] [facility] [address] [id number] [place] [address]- 1693 03 Jul, 2010 [facility] [address] [id number] [place] [address]- 8773 30 Jun, 2010 [facility] [address] [id number] [place] [address]- 3198 30 Jun, 2010 [facility] [address] [facility] [id number] [place] [address]- 0921 29 Jun, 2010 [facility] [address] [id number] [place] [address]- 3886 23 Jun, 2010 [facility] [address] [facility] [id number] [place] [address], [place] [address]- 2574 Jun, [facility] [address] [facility] [id number] [place]- [address] 14 May, 2010 [facility] [id number] [place] [address]- [address] December, [facility] [address] [facility] [id number] [place] [address]- 8087 December, [facility] [id number] [place] [address]- [address] Oct, [facility] [address] [facility] [id number] [address]- 24[address] 31 Jul, 2009 [facility] [address] [facility] [id number] [place] [address] 254 24 Jul, 2009 [facility] [address] [facility] [id number] [address]- [address] Jul, [facility] [address] [facility] [id number] [place] [address]- 2861 30 Jun, 2009 [facility] [address] [facility] [id number] [place] [address]- 7694 22 May, 2009 [facility] [address] [facility] [id number], [place] [address]- [address] Jun, IMMUNIZATIONS No Known Immunizations SOCIAL HISTORY Never Assessed REASON FOR VISIT patient update PLAN OF CARE VITAL SIGNS MEDICATIONS Unknown [...] 2007 Surgical History Back surgery x 2 2007 Surgical History Left ureteric stent placement [...]
--- OUTSIDE RECORDS SUMMARY | 2018-07-11 11:11 | XMS REPORT ---
Author Author JOSEP GONG [facility] Address [address] [place] [address] Care Team Providers Care Orbitread Operator Name Role Phone JOSEP GONG Unavailable PROBLEMS Type Condition ICD9-CM Code ESB45-KR Code Onset Dates Condition Status SNOMED Code Problem Chronic bronchitis, unspecified chronic bronchitis type J42 Active 76638592 Problem Vitamin D deficiency, unspecified E55.9 Active 80137699 Problem Chronic obstructive pulmonary disease with acute exacerbation J44.1 Active 315312975 Problem Gastric reflux K21.9 Active 324062873 Problem Right knee pain M25.561 Active 20657320 Problem Paroxysmal atrial fibrillation I48.0 Active 873016172 Problem Sprain of right knee, unspecified ligament, initial encounter S83.91XA Active 75320835 Problem Abscess L02.91 Active 255681773 Problem Obesity, unspecified E66.9 Active 36758236740753 Problem Chronic obstructive pulmonary disease, unspecified COPD type J44.9 Active 87294363 Problem Chronic congestive heart failure, unspecified heart failure type I50.9 Active 04474907 Problem Body mass index (BMI) of 40.0-44.9 in adult Z68.41 Active 906931924 Problem Hyperlipidemia, unspecified E78.5 Active 86463329 Problem Chronic renal disease, unspecified stage N18.9 Active 481030443 Problem Type 2 diabetes mellitus with other diabetic kidney complication E11.29 Active 990210673 Problem Essential hypertension I10 Active 63214411 Problem Proteinuria R80.9 Active 25690903 Problem Renal osteodystrophy N25.0 Active 16373946 Problem Chronic kidney disease, stage IV (severe) N18.4 Active 162987170 Problem Essential (primary) hypertension I10 Active 56857869 Problem Venous (peripheral) insufficiency I87.2 Active 67260191 Problem Anemia of renal disease D63.1 Active 894509283 Problem Type 2 diabetes mellitus with diabetic nephropathy E11.21 Active 200946974 ALLERGIES No Information ENCOUNTERS Encounter Location Date Diagnosis [id number] [id number] Mar, Type 2 diabetes mellitus with diabetic nephropathy E11.21 and Gastric reflux K21.[address] [place] [address] [id number] Mar, Type 2 diabetes mellitus with diabetic nephropathy E11.21 ; Gastric reflux K21.9 and Chronic kidney disease, stage IV (severe) N18.4 [id number] [place] [address] [id number] Feb, [id number] [place] [address] [id number] Feb, Type 2 diabetes mellitus with other diabetic kidney complication E11.29 [id number] [place] [address] [id number] Jan, Body mass index (BMI) 70 or greater, adult Z68.45 and Type 2 diabetes mellitus with other diabetic kidney complication E11.29 [address] [place] [address] [id number] Nov, Body mass index (BMI) 70 or greater, adult Z68.45 ; Chronic obstructive pulmonary disease, unspecified COPD type J44.9 ; Chronic kidney disease, stage IV (severe) N18.4 and Gastric reflux K21.9 [address] [place] [address] [id number] Oct, Body mass index (BMI) 70 or greater, adult Z68.45 ; Type 2 diabetes mellitus with other diabetic kidney complication E11.29 ; Chronic obstructive pulmonary disease with acute exacerbation J44.1 and Paroxysmal atrial fibrillation I48.0 [address] [place] [address] [id number] Oct, [address] [place] [address] [id number] Oct, Type 2 diabetes mellitus with diabetic nephropathy E11.21 ; Chronic renal disease, unspecified stage N18.9 ; Chronic congestive heart failure, unspecified heart failure type I50.9 and Chronic obstructive pulmonary disease with acute exacerbation J44.[address] [place] [address] [id number] Sep, [facility] [id number] [id number] Sep, [facility] [id number] [place] [address] [id number] Sep, [facility] [id number] [place] [address]87- 2546 Sep, Type 2 diabetes mellitus with diabetic nephropathy E11.21 [id number] [place] [address] [id number] Aug, Influenza J11.1 and Essential (primary) hypertension I10 [facility] [id number] [place] [address] 56238- 2546 Aug, [id number] [place] [address] [id number] Jul, Type 2 diabetes mellitus with diabetic nephropathy E11.21 ; Essential ( primary) hypertension I10 and Chronic obstructive pulmonary disease, unspecified COPD type J44.9 [facility] [address] [id number] Jun, Dental caries K02.9 [id number] [place] [address] [id number] May, Cough R05 ; Chronic obstructive pulmonary disease, unspecified COPD type J44.9 ; Shortness of breath R06.02 ; Obesity, unspecified E66.9 ; Body mass index (BMI) of 40.0-44.9 in adult Z68.41 and Encounter for immunization Z23 [facility] [id number] [place] [address] [id number] May, Dental examination Z01.20 [address] [place] [address] [id number] May, Essential hypertension I10 [address] [id number] Apr, Anemia of renal disease D63.1 ; Type 2 diabetes mellitus with other diabetic kidney complication E11.29 ; Vitamin D deficiency, unspecified E55.9 and Chronic renal disease, unspecified stage N18.9 [facility] [id number] [address] Mar, [address] [place] [address] [id number] Mar, Type 2 diabetes mellitus with other diabetic kidney complication E11.29 ; Essential hypertension I10 ; Chronic renal disease, unspecified stage N18.9 and Chronic obstructive pulmonary disease with acute exacerbation J44.1 [address] [place] [address] [id number] Feb, [address] [place] [address] [id number] Feb, Chronic renal disease, unspecified stage N18.9 ; Essential (primary) hypertension I10 and Type 2 diabetes mellitus with other diabetic kidney complication E11.29 [address] [place] [address] [id number] Feb, Type 2 diabetes mellitus with other diabetic kidney complication E11.29 ; Chronic kidney disease, stage IV (severe) N18.4 ; Renal osteodystrophy N25.0 ; Anemia of renal disease D63.1 and Essential (primary) hypertension I10 [address] [place] [address] [id number] December, [address] [place] [address] [id number] December, Chronic obstructive pulmonary disease with acute exacerbation J44.1 ; Essential (primary) hypertension I10 ; Low back pain M54.5 and Right knee pain M25.561 [address] [id number] Nov, Chronic renal disease, unspecified stage N18.9 ; Essential hypertension I10 ; Type 2 diabetes mellitus with other diabetic kidney complication E11.29 and Chronic obstructive pulmonary disease with acute exacerbation J44.1 [address] [place] [address] [id number] Nov, Chronic renal disease, unspecified stage N18.9 ; Hyperlipidemia, unspecified E78.5 and Essential hypertension I10 [address] [place] [address] [id number] Oct, Chronic bronchitis, unspecified chronic bronchitis type J42 and Type 2 diabetes mellitus with diabetic nephropathy E11.21 [address] [place] [address] [id number] Sep, Chronic bronchitis, unspecified chronic bronchitis type J42 ; Essential ( primary) hypertension I10 and Type 2 diabetes mellitus with other diabetic kidney complication E11.29 [address] [place] [address] [id number] Sep, Chronic obstructive pulmonary disease with acute exacerbation J44.1 [id number] [place] [address] [id number] Aug, Type 2 diabetes mellitus with diabetic nephropathy E11.21 ; Chronic kidney disease, stage IV (severe) N18.4 ; Essential (primary) hypertension I10 and Encounter for immunization Z23 [address] [place] [address] [id number] Aug, Chronic kidney disease, stage IV (severe) N18.4 ; Type 2 diabetes mellitus with diabetic nephropathy E11.21 and Type 2 diabetes mellitus with hyperglycemia E11.65 [address] [place] [address] [id number] May, Anemia of renal disease D63.1 ; Essential (primary) hypertension I10 ; Renal osteodystrophy N25.0 ; Proteinuria R80.9 ; Chronic kidney disease, stage IV (severe) N18.4 and Type 2 diabetes mellitus with other diabetic kidney complication E11.29 [address] [place] [address] [id number] Mar, Type 2 diabetes mellitus with other diabetic kidney complication E11.29 ; Essential hypertension I10 ; Chronic renal disease, unspecified stage N18.9 and TMJ (temporomandibular joint disorder) M26.60 [address] [place] [address] [id number] Jan, Chronic kidney disease, stage IV (severe) N18.4 and Hyperlipidemia, unspecified E78.5 [address] [place] [address] [id number] December, Type 2 diabetes mellitus with other diabetic kidney complication E11.29 ; Abscess L02.91 and Chronic kidney disease, stage IV (severe) N18.4 [facility] [id number] [id number] December, Abscess L02.91 [facility] [id number] [place] [address] [id number] December, [facility] [id number] [place] [address] [id number] Oct, Renal osteodystrophy N25.0 ; Chronic kidney disease, stage IV (severe) N18.4 and Vitamin D deficiency E55.9 [facility] [address] [place] [address] [id number] Oct, [facility] [id number] [place] [address] [id number] Sep, Type 2 diabetes mellitus with other diabetic kidney complication E11.29 ; Essential hypertension I10 and Chronic airway obstruction, not elsewhere classified J44.9 [facility] [id number] [place] [address] [id number] Sep, [address] [place] [address] [id number] Aug, [address] [place] [address] [id number] Jul, [address] [place] [address] [id number] Jul, [address] [place] [address] [id number] Jul, Chronic kidney disease, stage IV (severe) N18.4 ; Renal osteodystrophy N25.0 and Proteinuria R80.9 [facility] [place] [address] [id number], [place] [address] Jul, [facility] [address] [id number] [id number] Jun, [facility] [address] [id number] [id number] Jun, [facility] [address] [id number] Jun, Diabetes with renal manifestations, type II or unspecified type, uncontrolled 250.42 and Right knee pain M25.561 [facility] [address], [place] [address] May, [address] [place] [address] [id number] May, Abscess L02.91 ; Encounter for immunization Z23 and Sprain of right knee, unspecified ligament, initial encounter S83.91XA [address] [place] [address] [id number] May, Abscess L02.[id number] [place] [address] [id number] May, [address] [place] [address] [id number] Apr, Diabetes with renal manifestations, type II or unspecified type, uncontrolled 250.42 and PPV23 (PNEUMOVAX) DX V03.82 [address] [place] [address] [id number] Mar, [address] [place] [address] [id number] Mar, Proteinuria 791.0 ; Renal osteodystrophy 588.0 ; Chronic kidney disease, Stage IV (severe) 585.4 ; Benign essential hypertension 401.1 and Vitamin D deficiency 268.9 [address] [place] [address] [id number] Feb, Avulsion fracture of ankle 824.8 [address] [place] [address] [id number] Feb, [address] [place] [address] [id number] Feb, [address] [place] [address] [id number] Feb, Diabetes with renal manifestations, type II or unspecified type, uncontrolled 250.42 [address] [place] [address] [id number] Jan, Diabetes with renal manifestations, type II or unspecified type, uncontrolled 250.42 [facility] [id number] [id number] December, Diabetes with renal manifestations, type II or unspecified type, uncontrolled 250.42 and Unspecified essential hypertension 401.9 [facility] [id number], [place] [id number] December, [facility] [id number], [place] [id number] December, [facility] [id number] [place] [address] [id number] December, Essential hypertension 401.9 [facility] [id number] [place] [address] [id number] Nov, Essential hypertension 401.9 [facility] [id number] [place] [address] [id number] Nov, [facility] [id number], [place] [id number] Nov, [facility] [id number] [place] [address] [id number] Nov, [facility] [place] [facility] [id number] [place] [address] 30132- 2546 Nov, [facility] [place] [facility] [address], [place] [address]- 25[address] Nov, [facility] [id number], [place] [id number] Oct, [facility] [place] [facility] [id number] [place] [address] 61231- 2546 Oct, [facility] [id number], [place] [id number] Oct, [facility] [place] [facility] [id number] [place] [address] 76448- 2546 Oct, [facility] [place] [facility] [address] [id number], [place] [address]- 2546 Oct, [facility] [id number], [place] [id number] Oct, [facility] [address] [id number] [place] [id number] Oct, [facility] [place] [facility] [address] [facility] [id number] [address]- 4916 Oct, [facility] [place] [facility] [address] [facility] [id number], [place] [address]- 9776 Sep, [facility] [address] [id number] [place] [id number] Sep, [facility] [address] [id number] [place] [id number] Sep, [facility] [place] [facility] [address] [facility] [id number], [place] [address]- 6486 Sep, [facility] [address] [facility] [id number] [place] [id number] Aug, [facility] [place] [facility] [address], [place] [address]- 89[address] Aug, [facility] [address] [facility] [id number], [place] [id number] Aug, [facility] [place] [facility] [address] [facility] [id number], [place] [address]- 6103 Aug, [facility] [address] [id number], [place] [id number] Aug, [facility] [place] [facility] [address], [place] [address]- 6133 Aug, [facility] [place] [facility] [address] [facility] [id number], [place] [address]- 8556 Aug, [facility] [address] [facility] [id number], [place] [id number] Aug, [facility] [place] [facility] [address] [facility] [id number], [place] [address]- 9686 Jul, [facility] [place] [facility] [address] [facility] [id number], [place] [address]- 5407 Jul, [facility] [address] [facility] [id number], [place] [id number] Jul, [facility] [place] [facility] [address] [id number] [place] [address]- 1396 Jul, [facility] [address] [id number] [place] [id number] Jul, [facility] [place] [facility] [address] [facility] [id number], [place] [address]- 6526 Jul, [facility] [address] [id number] [place] [id number] Jul, [facility] [place] [facility] [address] [facility] [id number] [place] [address]- 1843 Jul, [facility] [place] [facility] [address] [facility] [id number] [place] [address]- 6536 May, [facility] [address] [id number], [place] [id number] May, [facility] [address] [id number], [place] [id number] May, [facility] [place] [facility] [address] [facility] [id number], [place] [address]- 2407 May, [facility] [address] [facility] [id number], [place] [id number] Apr, [facility] [place] [facility] [address] [facility] [id number], [place] [address]- 8386 Apr, [facility] [address] [id number], [place] [id number] Mar, [facility] [place] [facility] [address] [facility] [id number], [place] [address]- 5341 Mar, [facility] [place] [facility] [address] [facility] [id number], [place] [address]- 9086 Mar, [facility] [place] [facility] [address] [facility] [id number], [place] [address]- 9226 Mar, [facility] [address] [id number], [place] [id number] Mar, [facility] [address] [id number], [place] [id number] Feb, [facility] [place] [facility] [address] [id number] [place] [address]- 8246 Feb, [facility] [address] [id number] [place] [id number] Jan, [facility] [place] [facility] [address] [facility] [id number] [place] [address]- 4366 Jan, [facility] [place] [facility] [address] [facility] [id number] [place] [address]- 8896 Jan, [facility] [address] [id number] [place] [id number] Jan, [facility] [address] [id number] [place] 963165088 Jan, [facility] [place] [facility] [address] [id number] [address]- 4[address] Jan, [facility] [address] [facility] [id number] [place] [id number] December, [facility] [place] [facility] [address] [facility] [id number] [place] [address]- 7931 December, [facility] [place] [facility] [address] [facility] [id number] [place] [address]- 7266 Nov, [facility] [place] [facility] [address] [facility] [id number] [place] [address]- 6576 Nov, [facility] [address] [facility] [id number] [place] [id number] Nov, [facility] [place] [facility] [address] [facility] [id number] [place] [address]- 7586 Nov, [facility] [address] [facility] [id number] [place] [id number] Oct, [facility] [place] [facility] [address] [facility] [id number] [place] [address]- 3956 Oct, [facility] [address] [facility] [id number] [place] [id number] Oct, [facility] [place] [facility] [address] [facility] [id number], [place] [address]- 2546 Oct, [facility] [address] [facility] [id number] [place] [id number] Oct, [facility] [place] [facility] [address] [facility] [id number], [place] [address]- 4306 Oct, [facility] [address] [facility] [id number] [place] [id number] Oct, [facility] [place] [facility] [address] [facility] [id number], [place] [address]- 1064 Oct, [facility] [address] [facility] [id number] [place] [id number] Aug, [facility] [place] [facility] [address] [facility] [id number], [place] [address]- 7366 Aug, [facility] [address] [id number] [place] 1975[address]32 Jul, [facility] [place] [facility] [address] [facility] [id number], [place] [address]- 5342 Jul, [facility] [address] [facility] [id number], [place] [id number] Jun, [facility] [place] [facility] [address] [facility] [id number], [place] [address]- 3926 Jun, [facility] [place] [facility] [address] [facility] [id number], [place] [address]- 8922 Jun, [facility] [address] [facility] [id number], [place] [id number] Jun, [facility] [address] [facility] [id number], [place] [id number] May, [facility] [place] [facility] [address] [facility] [id number], [place] [address]- 7986 May, [facility] [place] [facility] [address] [facility] [id number], [place] [address]- 2546 May, [facility] [address] [facility] [id number], [place] [id number] May, [facility] [place] [facility] [address] [facility] [id number], [place] [address]- 2951 May, [facility] [address] [id number] [place] [id number] May, [facility] [place] [facility] [address] [facility] [id number], [place] [address]- 1589 May, [facility] [address] [facility] [id number], [place] 727855918 May, [facility] [place] [facility] [address] [facility] [id number], [place] [address]- 2386 Apr, [facility] [place] [facility] [address] [facility] [id number], [place] [address]- 2561 Apr, [facility] [address] [facility] [id number], [place] [id number] Apr, [facility] [place] [facility] [address], [place] [address]- 9387 Apr, [facility] [place] [facility] [address] [facility] [id number], [place] [address]- 8133 Mar, [facility] [address] [id number] [place] [id number] Mar, [facility] [address] [id number], [place] 910737107 Feb, [facility] [address] [id number] [place] [id number] Feb, [facility] [address] [id number], [place] 362835113 Feb, [facility] [address] [id number], [place] [id number] Jan, [facility] [place] [facility] [address] [facility] [id number], [place] [address]- 7222 Jan, [facility] [address] [id number], [place] [id number] Jan, [facility] [address] [id number], [place] 919188193 December, [facility] [place] [facility] [address], [place] [address]- 2546 December, [facility] [address] [id number] [place] [id number] December, [facility] [address] [id number] [place] [id number] December, [facility] [address] [id number] [place] [id number] Nov, [facility] [address] [id number] [place] [id number] Nov, [facility] [address] [id number] [place] [address] Nov, [facility] [address] [id number] [place] [id number] Nov, [facility] [address] [id number] [place] [id number] Oct, [facility] [address] [id number] [place] [id number] Oct, [facility] [address] [id number] [place] [id number] Oct, [facility] [address] [id number] [place] [id number] Oct, [facility] [address] [id number] [place] [id number] Sep, [facility] [address] [id number] [place] [id number] Sep, [facility] [address] [facility] [id number] [address] Aug, [facility] [address] [facility] [id number] [address] Aug, [facility] [address] [id number] [place] [id number] Aug, [facility] [address] [id number] [place] [id number] Aug, [facility] [address] [id number] [place] [id number] Jul, [facility] [address] [id number] [place] [id number] Jul, [facility] [place] [facility] [address] [facility] [id number] [place] [address] Jul, [facility] [place] [facility] [address] [facility] [id number] [place] [address] Jul, [facility] [address] [facility] [id number] [place] [id number] Jul, [facility] [place] [facility] [address] [facility] [id number], [place] [address] Jul, [facility] [address] [facility] [id number] [place] [id number] Jul, [facility] [place] [facility] [address] [id number] [address] Jul, [facility] [place] [facility] [id number] [address] Jul, [facility] [place] [address] [facility] [id number][place] [id number] Jul, [facility] [place] [address] [facility] [id number] [place] [id number] Jul, [facility] [place] [facility] [address] [address] Jul, [facility] [place] [address] [facility] [id number][place] [id number] Jun, [facility] [place] [facility] [address] [facility] [id number], [place] [address] Jun, [facility] [place] [facility] [address] [facility] [id number], [place] [address] Jun, [facility] [place] [address] [facility] [id number][place] [id number] Jun, [facility] [place] [facility] [address] [facility] [id number], [place] [address] Jun, [facility] [place] [facility] [address], [place] [address] Jun, [facility] [place] [address] [id number] [place] [id number] Jun, [facility] [address] [facility] [id number], [place] [address] Jun, [facility] [place] [address] [id number] [place] [id number] Jun, [facility] [address] [facility] [id number], [place] [address] Jun, [facility] [place] [address] [id number][place] [id number] May, [facility] [address] [facility] [id number] [place] [address] Apr, [facility] [address] [facility] [id number] [place] [address] Apr, [facility] [place] [address] [id number], [place] [id number] Apr, [facility] [place] [address] [id number][place] [id number] Apr, [facility] [place] [address] [id number] [place] [id number] Apr, [facility] [place] [address] [id number][place] [address] Apr, [facility] [place] [address] [id number], [place] [id number] Apr, [facility] [place] [address] [id number], [place] [id number] Mar, [facility] [place] [address] [id number], [place] [id number] Mar, [facility] [place] [address] [id number] [place] [id number] Mar, [facility] [place] [address] [id number] [place] [id number] Mar, [facility] [place] [address] [id number], [place] [id number] Mar, [facility] [place] [address] [id number] [place] [id number] Mar, [facility] [place] [address] [id number] [place] [id number] Mar, [facility] [place] [address] [id number] [place] [id number] Feb, [facility] [place] [address] [id number] [place] [id number] Feb, [facility] [place] [address] [id number] [place] [id number] Jan, [facility] [place] [address] [id number] [place] [address] Jan, [facility] [place] [address] [id number] [place] [id number] Jan, [facility] [place] [address] [id number] [place] [id number] Jan, [facility] [place] [address] [id number] [place] [id number] Jan, [facility] [place] [address] [id number] [place] [id number] Jan, [facility] [place] [address] [id number] [place] [id number] December, [facility] [place] [address] [id number] [place] [id number] Nov, [facility] [place] [address] [id number] [place] [id number] Oct, [facility] [place] [address] [id number] [place] [id number] Oct, [facility] [place] [address] [id number] [place] [id number] Oct, [facility] [place] [address] [facility] [id number] [place] [address] Oct, [facility] [place] [address] [id number] [place] [address] Oct, [facility] [place] [address] [id number] [place] [id number] Oct, [facility] [place] [address] [id number] [place] [id number] Oct, [facility] [place] [address] [id number] [place] [id number] Oct, [facility] [place] [address] [id number] [place] [id number] Oct, [facility] [place] [address] [id number] [place] [id number] Oct, [facility] [place] [address] [id number] [place] [id number] Sep, [facility] [place] [facility] [address] [facility] [id number], [place] [address] Sep, [facility] [place] [address] [id number] [place] [id number] Sep, [facility] [place] [address] [id number] [place] [id number] Aug, [facility] [place] [address] [id number] [place] [id number] Aug, [facility] [place] [address] [id number] [place] [id number] Aug, [facility] [place] [facility] [address], [place] [address] Aug, [facility] [place] [facility] [id number] [place] [id number]- [address] Jul, [facility] [place] [facility] [address] [address] Jul, [facility] [place] [facility] [address], [place] [address] Jul, [facility] [place] [facility] [address] [id number], [place] [address] Jul, [facility] [place] [facility] [id number] [place] [address]- [address] Jun, [facility] [place] [facility] [address], [place] [address] Jun, [facility] [place] [facility] [id number] [place] [address]- 3719 May, [facility] [place] [facility] [address] [id number] [place] [address] 10 May, 2011 [facility] [place] [facility] [address] [id number] [place] [address]- [address] December, [facility] [place] [facility] [address] [id number] [place] December, [facility] [place] [facility] [address] [id number] [place] [address] 14 Aug, 2010 [facility] [place] [facility] [address] [id number] [place] [address]- [address] Jul, [facility] [place] [facility] [address] [id number] [place] [address]- [address] Jul, [facility] [place] [facility] [address] [id number] [place] [address]- [address] Jul, [facility] [place] [facility] [address] [id number] [place] [address]- [address] 16 Jul, 2010 [facility] [place] [facility] [address] [id number] [place] [address]- [address] Jul, [facility] [place] [facility] [address] [id number] [place] [address]- [address] Jul, [facility] [place] [facility] [address] [id number], [place] [address] 30 Jun, 2010 [facility] [place] [facility] [address] [id number], [place] [address]- [address] 30 Jun, 2010 [facility] [place] [facility] [address] [id number] [place] [address]- [address] 29 Jun, 2010 [facility] [place] [facility] [address] [id number] [place] [address]- [address] Jun, [facility] [place] [facility] [address] [id number] [place] [address]47 Jun, [facility] [place] [facility] [address], [place] [address] 14 May, 2010 [facility] [address], [place] [address] December, [facility] [address], [place] [address]- [address] December, [facility] [address], [place] [address] Oct, [facility] [address], [place] [address] Jul, [facility] [id number] [place] [address]- 8146 Jul, [facility] [id number] [place] [address]- 2546 Jul, [facility] [id number] [place] [address]- 6915 Jun, [facility] [address], [place] [address] May, [facility] [address], [place] [address]- [address] Jun, IMMUNIZATIONS No Known Immunizations SOCIAL HISTORY Never Assessed REASON FOR VISIT Requests return call PLAN OF CARE VITAL SIGNS MEDICATIONS Medication Instructions Dosage Frequency Start Date End Date Duration Status Esomeprazole Magnesium 40 mg Orally Once a day 1 capsule 24h Mar, 30 day(s) Active Levemir 100 UNIT/ML Subcutaneous 2 times a day 74 units in AM & 64 units at HS 12h Active RESULTS No Results PROCEDURES No Known [...] Medical History Unspecified essential hypertension Medical History stroke--2006 Medical History acid reflux Medical History Chronic [...] dialysis port placed, we admin herself 03/17/18 Hospitalization History surgeries, childbirth Hospitalization History [facility] N/V[facility]D 05/2015 Hospitalization History [facility] influenza 08/2017 Hospitalization History CHF exacerbation 08/2017
--- OUTSIDE RECORDS SUMMARY | 2018-07-11 11:11 | XMS REPORT ---
Author Author JOSEP GONG [facility] Address [address] [place] [address] Care Team Providers Care Network Support Manager Name Role Phone JOSEP GONG Unavailable PROBLEMS Type Condition ICD9-CM Code HRG80-CW Code Onset Dates Condition Status SNOMED Code Problem Chronic obstructive pulmonary disease with acute exacerbation J44.1 Active 497238270 Problem Chronic obstructive pulmonary disease, unspecified COPD type J44.9 Active 82600125 Problem Vitamin D deficiency, unspecified E55.9 Active 45686592 Problem History of MRSA infection Z86.14 Active 927821636 Problem Type 2 diabetes mellitus with other diabetic kidney complication E11.29 Active 803314191 Problem Gastric reflux K21.9 Active 052402383 Problem Right knee pain M25.561 Active 35474349 Problem Sprain of right knee, unspecified ligament, initial encounter S83.91XA Active 38137770 Problem Body mass index (BMI) of 40.0-44.9 in adult Z68.41 Active 400337523 Problem Obesity, unspecified E66.9 Active 12628873085204 Problem Paroxysmal atrial fibrillation I48.0 Active 248859217 Problem Chronic congestive heart failure, unspecified heart failure type I50.9 Active 47587711 Problem Chronic renal disease, unspecified stage N18.9 Active 654464787 Problem Chronic kidney disease, stage IV (severe) N18.4 Active 210812275 Problem Essential hypertension I10 Active 46236768 Problem Hyperlipidemia, unspecified E78.5 Active 47856735 Problem Renal osteodystrophy N25.0 Active 24622028 Problem Essential (primary) hypertension I10 Active 32829211 Problem Venous (peripheral) insufficiency I87.2 Active 65928254 Problem Anemia of renal disease D63.1 Active 699377641 Problem Type 2 diabetes mellitus with diabetic nephropathy E11.21 Active 413406033 Problem Abscess L02.91 Active 160694068 Problem Proteinuria R80.9 Active 37348598 Problem Chronic bronchitis, unspecified chronic bronchitis type J42 Active 87496551 ALLERGIES No Information ENCOUNTERS Encounter Location Date Diagnosis [id number] [place] [address] [id number] Jun, [place] [id number] [place] [address] [id number] May, Abscess L02.91 ; History of MRSA infection Z86.14 and Body mass index (BMI ) 70 or greater, adult Z68.45 [place] [id number] [place] [address] [id number] Apr, [place] [id number] [place] [address] [id number] Apr, Local infection of the skin and subcutaneous tissue, unspecified L08.9 ; Other injury of unspecified body region, initial encounter T14.8XXA and History of MRSA infection Z86.14 [address] [place] [address] [id number] Mar, Type 2 diabetes mellitus with diabetic nephropathy E11.21 and Gastric reflux K21.9 [address] [place] [address] [id number] Mar, Type 2 diabetes mellitus with diabetic nephropathy E11.21 ; Gastric reflux K21.9 and Chronic kidney disease, stage IV (severe) N18.4 [address] [place] [address] [id number] Feb, [address] [place] [address] [id number] Feb, Type 2 diabetes mellitus with other diabetic kidney complication E11.29 [address] [place] [address] [id number] Jan, Body mass index (BMI) 70 or greater, adult Z68.45 and Type 2 diabetes mellitus with other diabetic kidney complication E11.29 [address] [place] [address] [id number] Nov, Body mass index (BMI) 70 or greater, adult Z68.45 ; Chronic obstructive pulmonary disease, unspecified COPD type J44.9 ; Chronic kidney disease, stage IV (severe) N18.4 and Gastric reflux K21.9 [place] [id number] [place] [address] [id number] Oct, Body mass index (BMI) 70 or greater, adult Z68.45 ; Type 2 diabetes mellitus with other diabetic kidney complication E11.29 ; Chronic obstructive pulmonary disease with acute exacerbation J44.1 and Paroxysmal atrial fibrillation I48.0 [facility] [id number] [place] [address] [id number] Oct, [address] [id number] Oct, Type 2 diabetes mellitus with diabetic nephropathy E11.21 ; Chronic renal disease, unspecified stage N18.9 ; Chronic congestive heart failure, unspecified heart failure type I50.9 and Chronic obstructive pulmonary disease with acute exacerbation J44.1 [place] [id number] [place] [address] [id number] Sep, [place] [id number] [place] [address] [id number] Sep, [address] [id number] Sep, [facility] [address] [address] Sep, Type 2 diabetes mellitus with diabetic nephropathy E11.21 [place] [id number] [place] [address] [id number] Aug, Influenza J11.1 and Essential (primary) hypertension I10 [facility] [address] [address] Aug, [place] [id number] [place] [address] [id number] Jul, Type 2 diabetes mellitus with diabetic nephropathy E11.21 ; Essential ( primary) hypertension I10 and Chronic obstructive pulmonary disease, unspecified COPD type J44.9 [facility] [id number] [place] [address] [id number] Jun, Dental caries K02.9 [place] [id number] [place] [address] [id number] May, Cough R05 ; Chronic obstructive pulmonary disease, unspecified COPD type J44.9 ; Shortness of breath R06.02 ; Obesity, unspecified E66.9 ; Body mass index (BMI) of 40.0-44.9 in adult Z68.41 and Encounter for immunization Z23 [facility] [id number] [id number] 06 May, 2017 Dental examination Z01.20 [facility] [id number] [place] [address] [id number] May, Essential hypertension I10 [facility] [id number] [place] [address] [id number] Apr, Anemia of renal disease D63.1 ; Type 2 diabetes mellitus with other diabetic kidney complication E11.29 ; Vitamin D deficiency, unspecified E55.9 and Chronic renal disease, unspecified stage N18.9 [facility] [address] [address] Mar, [facility] [id number] [place] [address] [id number] Mar, Type 2 diabetes mellitus with other diabetic kidney complication E11.29 ; Essential hypertension I10 ; Chronic renal disease, unspecified stage N18.9 and Chronic obstructive pulmonary disease with acute exacerbation J44.1 [facility] [address] [place] [address] [id number] Feb, [address] [place] [address] [id number] Feb, Chronic renal disease, unspecified stage N18.9 ; Essential (primary) hypertension I10 and Type 2 diabetes mellitus with other diabetic kidney complication E11.29 [facility] [address] [place] [address] [id number] Feb, Type 2 diabetes mellitus with other diabetic kidney complication E11.29 ; Chronic kidney disease, stage IV (severe) N18.4 ; Renal osteodystrophy N25.0 ; Anemia of renal disease D63.1 and Essential (primary) hypertension I10 [facility] [address] [id number] December, [place] [id number] [place] [address] [id number] December, Chronic obstructive pulmonary disease with acute exacerbation J44.1 ; Essential (primary) hypertension I10 ; Low back pain M54.5 and Right knee pain M25.561 [address] [place] [address] [id number] Nov, Chronic renal disease, unspecified stage N18.9 ; Essential hypertension I10 ; Type 2 diabetes mellitus with other diabetic kidney complication E11.29 and Chronic obstructive pulmonary disease with acute exacerbation J44.1 [place] [id number] [place] [address] [id number] Nov, Chronic renal disease, unspecified stage N18.9 ; Hyperlipidemia, unspecified E78.5 and Essential hypertension I10 [place] [id number] [place] [address] [id number] Oct, Chronic bronchitis, unspecified chronic bronchitis type J42 and Type 2 diabetes mellitus with diabetic nephropathy E11.21 [place] [id number] [place] [address] [id number] Sep, Chronic bronchitis, unspecified chronic bronchitis type J42 ; Essential ( primary) hypertension I10 and Type 2 diabetes mellitus with other diabetic kidney complication E11.29 [place] [id number] [place] [address] [id number] Sep, Chronic obstructive pulmonary disease with acute exacerbation J44.1 [place] [id number] [place] [address] [id number] Aug, Type 2 diabetes mellitus with diabetic nephropathy E11.21 ; Chronic kidney disease, stage IV (severe) N18.4 ; Essential (primary) hypertension I10 and Encounter for immunization Z23 [address] [place] [address] [id number] Aug, Chronic kidney disease, stage IV (severe) N18.4 ; Type 2 diabetes mellitus with diabetic nephropathy E11.21 and Type 2 diabetes mellitus with hyperglycemia E11.65 [place] [id number] [place] [address] [id number] May, Anemia of renal disease D63.1 ; Essential (primary) hypertension I10 ; Renal osteodystrophy N25.0 ; Proteinuria R80.9 ; Chronic kidney disease, stage IV (severe) N18.4 and Type 2 diabetes mellitus with other diabetic kidney complication E11.29 [place] [id number] [place] [address] [id number] Mar, Type 2 diabetes mellitus with other diabetic kidney complication E11.29 ; Essential hypertension I10 ; Chronic renal disease, unspecified stage N18.9 and TMJ (temporomandibular joint disorder) M26.60 [place] [id number] [place] [address] [id number] Jan, Chronic kidney disease, stage IV (severe) N18.4 and Hyperlipidemia, unspecified E78.5 [place] [id number] [place] [address] [id number] December, Type 2 diabetes mellitus with other diabetic kidney complication E11.29 ; Abscess L02.91 and Chronic kidney disease, stage IV (severe) N18.4 [address] [place] [address] [id number] December, Abscess L02.91 [place] [id number] [place] [address] [id number] December, [place] [id number] [place] [address] [id number] Oct, Renal osteodystrophy N25.0 ; Chronic kidney disease, stage IV (severe) N18.4 and Vitamin D deficiency E55.9 [address] [place] [address] [id number] Oct, [place] [id number] [place] [address] [id number] Sep, Type 2 diabetes mellitus with other diabetic kidney complication E11.29 ; Essential hypertension I10 and Chronic airway obstruction, not elsewhere classified J44.9 [place] [id number] [place] [address] [id number] Sep, [place] [id number] [place] [address] [id number] Aug, [address] [place] [address] [id number] Jul, [place] [id number] [phone] Jul, [place] [id number] [place] [address] [id number] Jul, Chronic kidney disease, stage IV (severe) N18.4 ; Renal osteodystrophy N25.0 and Proteinuria R80.9 [place] [id number] [place] [address] Jul, [address] [id number] [id number] Jun, [address] [place] [id number] [place] [address] [id number] Jun, [address] [place] [address] [id number] Jun, Diabetes with renal manifestations, type II or unspecified type, uncontrolled 250.42 and Right knee pain M25.561 [place] [id number] [place] [address] May, [address] [place] [address] [id number] May, Abscess L02.91 ; Encounter for immunization Z23 and Sprain of right knee, unspecified ligament, initial encounter S83.91XA [address] [place] [address] [id number] May, Abscess L02.[address] [id number] [place] [id number] May, [address] [place] [address] [id number] Apr, Diabetes with renal manifestations, type II or unspecified type, uncontrolled 250.42 and PPV23 (PNEUMOVAX) DX V03.82 [address] [place] [address] [id number] Mar, [place] [id number] [place] [address] [id number] Mar, Proteinuria 791.0 ; Renal osteodystrophy 588.0 ; Chronic kidney disease, Stage IV (severe) 585.4 ; Benign essential hypertension 401.1 and Vitamin D deficiency 268.9 [facility] [id number] [place] [address] [id number] Feb, Avulsion fracture of ankle 824.8 [facility] [id number] [place] [address] [id number] Feb, [facility] [id number] [place] [address] [id number] Feb, [facility] [id number] [place] [address] [id number] Feb, Diabetes with renal manifestations, type II or unspecified type, uncontrolled 250.42 [facility] [address] [id number] Jan, Diabetes with renal manifestations, type II or unspecified type, uncontrolled 250.42 [facility] [id number] [place] [address] [id number] December, Diabetes with renal manifestations, type II or unspecified type, uncontrolled 250.42 and Unspecified essential hypertension 401.9 [facility] [id number] [place] [address] [id number] December, [facility] [id number] [place] [address] [id number] December, [facility] [id number] [place] [address] [id number] December, Essential hypertension 401.9 [facility] [id number] [place] [address] [id number] Nov, Essential hypertension 401.9 [facility] [id number] [place] [address] [id number] Nov, [facility] [id number] [place] [address] [id number] Nov, [facility] [id number] [place] [address] [id number] Nov, [facility] [address] [id number]- [address] Nov, [facility] [address] [place] [address]- [address] Nov, [facility] [address] [id number] [place] [id number] Oct, [facility] [place] [facility] [address] [facility] [id number] [address] Oct, [facility] [address] [id number] [place] [id number] Oct, [facility] [place] [facility] [address] [facility] [id number][place] [address]- [address] Oct, [facility] [place] [facility] [address] [facility] [id number] [address]- 4[address] Oct, [facility] [address] [id number] [place] [id number] Oct, [facility] [address] [id number] [place] [id number] Oct, [facility] [place] [facility] [address], [place] [address]- 9[address] Oct, [facility] [place] [facility] [address] [facility] [id number][place] [address]- 9[address] Sep, [facility] [address] [id number][place] [id number] Sep, [facility] [address] [id number][place] [id number] Sep, [facility] [place] [facility] [address] [facility] [id number] [address]- 25[address] Sep, [facility] [address] [id number][place] [id number] Aug, [facility] [place] [facility] [address] [facility] [id number][place] [address]- 5566 Aug, [facility] [address] [facility] [id number][place] [id number] Aug, [facility] [place] [facility] [address] [facility] [id number][place] [address]- 0[address] Aug, [facility] [address] [facility] [id number][place] [id number] Aug, [facility] [place] [facility] [address] [facility] [id number][place] [address]- 6266 Aug, [facility] [place] [facility] [address] [facility] [id number][place] [address]- 6036 Aug, [facility] [address] [facility] [id number][place] [id number] Aug, [facility] [place] [facility] [address] [facility] [id number][place] [address]- 1493 Jul, [facility] [place] [facility] [address] [facility] [id number], [place] [address]- 2747 Jul, [facility] [address] [facility] [id number][place] [id number] Jul, [facility] [place] [facility] [address] [facility] [id number][place] [address]- 0136 Jul, [facility] [address] [facility] [id number], [place] [id number] Jul, [facility] [place] [facility] [address] [facility] [id number][place] [address]- [address] Jul, [facility] [address] [facility] [id number][place] [id number] Jul, [facility] [place] [facility] [address] [facility] [id number][place] [address]- 9[address] Jul, [facility] [place] [facility] [address] [facility] [id number] [address]- 3[address] May, [facility] [address] [facility] [id number], [place] [id number] May, [facility] [address] [facility] [id number], [place] [id number] May, [facility] [place] [facility] [address] [facility] [id number][place] [address]- 1276 May, [facility] [address] [facility] [id number][place] [id number] Apr, [facility] [place] [facility] [address] [id number] [place] [address]- 8351 Apr, [facility] [address] [facility] [id number] [place] [id number] Mar, [facility] [place] [facility] [address] [id number] [place] [address]- 8616 Mar, [facility] [place] [facility] [address] [facility] [id number] [place] [address]- 4606 Mar, [facility] [place] [facility] [address] [facility] [id number] [place] [address]- 6838 Mar, [facility] [address] [id number] [place] [id number] Mar, [facility] [address] [facility] [id number] [place] [id number] Feb, [facility] [place] [facility] [address] [place] [address]- 35[address] Feb, [facility] [address] [facility] [id number] [place] [id number] Jan, [facility] [place] [facility] [address] [facility] [id number] [place] [address]- 6926 Jan, [facility] [place] [facility] [id number] [place] [address]- 6[address] Jan, [facility] [address] [id number] [place] [id number] Jan, [facility] [address] [facility] [id number], [place] 79[address] Jan, [facility] [place] [facility] [address] [facility] [id number] [place] [address]- 8242 Jan, [facility] [address] [facility] [id number] [place] [id number] December, [facility] [place] [facility] [address] [facility] [id number] [place] [address]- 2766 December, [facility] [place] [facility] [address] [facility] [id number] [place] [address]- 2022 Nov, [facility] [place] [facility] [address] [facility] [id number] [place] [address]- 6296 Nov, [facility] [address] [id number] [place] [id number] Nov, [facility] [place] [facility] [address] [facility] [id number] [place] [address]- 2546 Nov, [facility] [address] [facility] [id number] [place] [id number] Oct, [facility] [place] [facility] [address] [facility] [id number] [place] [address]- 2546 Oct, [facility] [address] [id number] [place] [id number] Oct, [facility] [place] [facility] [id number] [place] [address]- 4586 Oct, [facility] [address] [facility] [id number] [place] [id number] Oct, [facility] [place] [facility] [address] [facility] [id number], [place] [address]- 0126 Oct, [facility] [address] [facility] [id number] [place] [id number] Oct, [facility] [place] [facility] [address] [facility] [id number] [address] 2546 Oct, [facility] [address] [facility] [id number][place] 500471539 Aug, [facility] [place] [facility] [address] [facility] [id number] [address]- 5516 Aug, [facility] [address] [facility] [id number] [place] 138[address]408 Jul, [facility] [place] [facility] [address] [facility] [id number][place] [address]- 2546 Jul, [facility] [address] [facility] [id number] [place] 3449[address] Jun, [facility] [place] [facility] [address] [facility] [id number][place] [address]- 4406 Jun, [facility] [address] [facility] [id number], [place] [address]- 2546 Jun, [facility] [address] [id number] [place] [id number] Jun, [facility] [address] [facility] [id number], [place] 42[address]756 May, [facility] [place] [facility] [address] [facility] [id number], [place] [address] 2546 May, [facility] [address] [facility] [id number], [place] [address]- 0116 May, [facility] [address] [facility] [id number] [place] [address] [id number] May, [facility] [address] [facility] [id number], [place] [address] 2546 May, [facility] [address] [id number][place] [id number] May, [facility] [address] [facility] [id number][place] [address]- 0300 May, [facility] [address] [facility] [id number], [place] 192404202 May, [facility] [address] [facility] [id number][place] [address] 2546 Apr, [facility] [place] [facility] [address] [facility] [id number][place] [address] 2546 Apr, [facility] [address] [facility] [id number][place] [id number] Apr, [facility] [place] [facility] [address] [facility] [id number] [address] Apr, [facility] [place] [facility] [address] [facility] [id number][place] [address] Mar, [facility] [place] [address] [facility] [id number][place] [id number] Mar, [facility] [place] [id number] [place] [address] [place] [id number] Feb, [facility] [place] [address] [id number] [place] [id number] Feb, [facility] [place] [address] [id number] [place] [id number] Feb, [facility] [place] [address] [id number] [place] [id number] Jan, [facility] [place] [address] [facility] [id number] [place] [address] Jan, [facility] [place] [address] [id number] [place] [id number] Jan, [facility] [place] [address] [id number] [place] [id number] December, [facility] [address] [facility] [id number] [place] [address] December, [facility] [place] [address] [id number] [place] [id number] December, [facility] [place] [address] [id number] [place] [id number] December, [facility] [place] [address] [id number] [place] [id number] Nov, [facility] [place] [address] [id number] [place] [id number] Nov, [facility] [place] [address] [facility] [id number], [place] [address] Nov, [facility] [place] [address] [id number] [place] [id number] Nov, [facility] [address] [id number] [place] [id number] Oct, [facility] [address] [id number] [place] [id number] Oct, [facility] [address] [id number] [place] [id number] Oct, [facility] [address] [id number] [place] [id number] Oct, [facility] [address] [id number] [place] [id number] 08 Sep, 2012 [facility] [address] [id number] [place] [id number] Sep, [facility] [place] [facility] [address] [facility] [id number], [place] [address] Aug, [facility] [place] [facility] [address] [facility] [id number] [place] [address] Aug, [facility] [address] [id number] [place] [id number] Aug, [facility] [address] [id number] [place] [id number] Aug, [facility] [address] [id number] [place] [id number] Jul, [facility] [address] [id number] [place] [id number] Jul, [facility] [place] [facility] [address]65[address] [address] Jul, [facility] [address] [facility] [id number], [place] [address] Jul, [facility] [address] [id number] [place] [id number] Jul, [facility] [address]00565[address], [place] [address] Jul, [facility] [address] [id number] [id number] Jul, [facility] [place] [facility] [address] [facility] [id number], [place] [address] Jul, [facility] [place] [facility] [address] [facility] [id number][place] [address] Jul, [facility] [address] [facility] [id number][place] [id number] Jul, [facility] [address] [id number] [place] [address] Jul, [facility] [address] [facility] [id number] [address] Jul, [facility] [address] [id number][place] [id number] Jun, [facility] [place] [facility] [address] [facility] [id number], [place] [address] Jun, [facility] [place] [facility] [address] [facility] [id number], [place] [address] Jun, [facility] [address] [id number][place] [id number] Jun, [facility] [place] [facility] [address] [facility] [id number], [place] [address] Jun, [facility] [place] [facility] [id number] [place] [address] Jun, [facility] [id number][place] [id number] Jun, [facility] [place] [facility] [address]00565100[place], [place] [address] Jun, [facility] [address] [id number][place] [address] Jun, [facility] [place] [facility] [address]00565100[place], [place] [address] Jun, [facility] [address] [id number][place] [id number] May, [facility] [place] [facility] [address]65100[place], [place] [address] Apr, [facility] [place] [facility] [address] [facility] [id number], [place] [address] Apr, [facility] [address] [id number][place] [id number] Apr, [facility] [address] [id number][place] [id number] Apr, [facility] [address] [id number][place] [address] Apr, [facility] [address] [id number] [place] [address] Apr, [facility] [address] [id number] [id number] Apr, [facility] [address] [id number] [place] [id number] Mar, [facility] [address] [id number] [place] [id number] Mar, [facility] [address] [id number] [place] [id number] Mar, [facility] [address] [id number] [id number] Mar, [facility] [address] [id number] [place] [id number] Mar, [facility] [address] [id number] [place] [id number] Mar, [facility] [address] [id number] [id number] Mar, [facility] [place] [address] [id number] [place] [id number] Feb, [facility] [address] [id number] [place] [address] Feb, [facility] [address] [id number] [place] [address] Jan, [facility] [address] [id number] [place] Jan, [facility] [address] [id number] [place] [address] Jan, [facility] [address] [id number] [place] [address] Jan, [facility] [address] [id number] [place] [id number] Jan, [facility] [address] [id number] [place] [address] Jan, [facility] [address] [id number] [place] [address] December, [facility] [address] [id number] [place] [id number] Nov, [facility] [address] [id number] [place] [address] Oct, [facility] [address] [id number] [place] [id number] Oct, [facility] [address] [id number] [place] [address] Oct, [facility] [address] [facility] [id number], [place] [address] Oct, [facility] [address] [id number] [place] [address] Oct, [facility] [address] [id number] [place] [address] Oct, [facility] [address] [id number] [place] [id number] Oct, [facility] [address] [id number] [place] [address] Oct, [facility] [address] [id number] [place] [address] Oct, [facility] [address] [id number] [place] [id number] Oct, [facility] [address] [id number] [place] [id number] 14 Sep, 2011 [facility] [address]00565100[place], [place] [address] Sep, [facility] [address] [id number] [place] [address] Sep, [facility] [address] [id number] [place] [id number] Aug, [facility] [address] [id number] [place] [id number] Aug, [facility] [address] [id number] [place] [address]13[address] Aug, [facility] [address]00565100[place], [place] [address] Aug, [facility] [address]00565100[place], [place] [address]- [address] Jul, [facility] [address] [id number] [place] [address] 12 Jul, 2011 [facility] [place] [facility] [address] [id number] [place] [address]- [address]1 Jul, [facility] [place] [facility] [address] [id number] [place] [address]- 1409 Jul, [facility] [place] [facility] [address] [id number] [place] [address]- 5242 Jun, [facility] [place] [facility] [address] [id number] [place] [address]- 2929 Jun, [facility] [place] [facility] [address] [id number] [place] [address]- 0948 May, [facility] [place] [facility] [address] [id number] [place] [address]- 4702 May, [facility] [place] [facility] [address] [id number] [place] [address]- 1689 December, [facility] [address] [id number] [place] [address]- 3477 December, [facility] [place] [facility] [address] [id number] [place] [address]- 2880 Aug, [facility] [place] [facility] [address] [id number] [place] [address]- 2240 29 Jul, 2010 [facility] [place] [facility] [address] [id number] [place] [address]- 5480 28 Jul, 2010 [facility] [place] [facility] [address] [id number] [place] [address]- 4828 23 Jul, 2010 [facility] [place] [facility] [address] [id number] [place] [address]- 1402 16 Jul, 2010 [facility] [place] [facility] [address] [id number] [place] [address]- 6628 16 Jul, 2010 [facility] [place] [facility] [address] [id number] [place] [address]- 1799 03 Jul, 2010 [facility] [address] [id number] [place] [address]- 4020 30 Jun, 2010 [facility] [address] [id number] [place] [address]- 3820 30 Jun, 2010 [facility] [address] [facility] [id number] [place] [address]- 9565 29 Jun, 2010 [facility] [address] [id number] [place] [address]- 7724 23 Jun, 2010 [facility] [address] [facility] [id number] [place] [address], [place] [address]- 6943 Jun, [facility] [address] [facility] [id number] [place] [address] 14 May, 2010 [facility] [id number] [place] [address]- [address] December, [facility] [address] [facility] [id number] [place] [address]- 2132 December, [facility] [id number] [place] [address]- 1331 Oct, [facility] [address] [facility] [id number], [place] [address]- [address] 31 Jul, 2009 [facility] [address] [facility] [id number] [place] [address] 254 24 Jul, 2009 [facility] [address] [facility] [id number], [place] [address]- 1739 Jul, [facility] [address] [facility] [id number] [place] [address]- 6833 30 Jun, 2009 [facility] [address] [facility] [id number] [place] [address]- 9294 22 May, 2009 [facility] [address] [facility] [id number], [place] [address]- [address] Jun, IMMUNIZATIONS No Known Immunizations SOCIAL HISTORY Never Assessed REASON FOR VISIT home health referral PLAN OF CARE VITAL SIGNS MEDICATIONS Unknown [...]
--- OUTSIDE RECORDS SUMMARY | 2018-07-11 11:12 | XMS REPORT ---
Author Author JOSEP GONG [facility] Address [address] [place] [address] Care Team Providers Care Bottom Filler Name Role Phone JOSEP GONG Unavailable PROBLEMS Type Condition ICD9-CM Code EBD73-BP Code Onset Dates Condition Status SNOMED Code Problem Chronic bronchitis, unspecified chronic bronchitis type J42 Active 37426264 Problem Vitamin D deficiency, unspecified E55.9 Active 75433898 Problem Chronic obstructive pulmonary disease with acute exacerbation J44.1 Active 251946305 Problem Gastric reflux K21.9 Active 286670710 Problem Right knee pain M25.561 Active 29855781 Problem Paroxysmal atrial fibrillation I48.0 Active 530803343 Problem Sprain of right knee, unspecified ligament, initial encounter S83.91XA Active 96169986 Problem Abscess L02.91 Active 551965091 Problem Obesity, unspecified E66.9 Active 88340927440344 Problem Chronic obstructive pulmonary disease, unspecified COPD type J44.9 Active 69559340 Problem Chronic congestive heart failure, unspecified heart failure type I50.9 Active 61912833 Problem Body mass index (BMI) of 40.0-44.9 in adult Z68.41 Active 438778192 Problem Hyperlipidemia, unspecified E78.5 Active 47068500 Problem Chronic renal disease, unspecified stage N18.9 Active 805960374 Problem Type 2 diabetes mellitus with other diabetic kidney complication E11.29 Active 071191819 Problem Essential hypertension I10 Active 13848349 Problem Proteinuria R80.9 Active 12473671 Problem Renal osteodystrophy N25.0 Active 14072142 Problem Chronic kidney disease, stage IV (severe) N18.4 Active 062780823 Problem Essential (primary) hypertension I10 Active 41072174 Problem Venous (peripheral) insufficiency I87.2 Active 76326551 Problem Anemia of renal disease D63.1 Active 172717845 Problem Type 2 diabetes mellitus with diabetic nephropathy E11.21 Active 615333071 ALLERGIES Substance Reaction Event Type Date Status Percocet rash Drug Allergy Mar, Active Nubain rash Drug Allergy Mar, Active Lyrica anaphylaxis Drug Allergy Mar, Active Januvia rash Drug Allergy Mar, Active Fluoxetine nausea Drug Allergy Mar, Active Bexarotene rash Drug Allergy Mar, Active IV dye hives Non Drug Allergy Mar, Active ENCOUNTERS Encounter Location Date Diagnosis [facility] [id number], [place] [id number] Mar, Type 2 diabetes mellitus with diabetic nephropathy E11.21 and Gastric reflux K21.9 [facility] [id number] [place] [address] [id number] Mar, Type 2 diabetes mellitus with diabetic nephropathy E11.21 ; Gastric reflux K21.9 and Chronic kidney disease, stage IV (severe) N18.4 [facility] [id number] [place] [address] [id number] Feb, [facility] [id number] [place] [address] [id number] Feb, Type 2 diabetes mellitus with other diabetic kidney complication E11.29 [facility] [id number] [place] [address] [id number] Jan, Body mass index (BMI) 70 or greater, adult Z68.45 and Type 2 diabetes mellitus with other diabetic kidney complication E11.29 [facility] [id number], [place] [id number] Nov, Body mass index (BMI) 70 or greater, adult Z68.45 ; Chronic obstructive pulmonary disease, unspecified COPD type J44.9 ; Chronic kidney disease, stage IV (severe) N18.4 and Gastric reflux K21.9 [facility] [id number], [place] [id number] Oct, Body mass index (BMI) 70 or greater, adult Z68.45 ; Type 2 diabetes mellitus with other diabetic kidney complication E11.29 ; Chronic obstructive pulmonary disease with acute exacerbation J44.1 and Paroxysmal atrial fibrillation I48.0 [facility] [id number], [place] [id number] Oct, [facility] [id number] [place] [address] [id number] Oct, Type 2 diabetes mellitus with diabetic nephropathy E11.21 ; Chronic renal disease, unspecified stage N18.9 ; Chronic congestive heart failure, unspecified heart failure type I50.9 and Chronic obstructive pulmonary disease with acute exacerbation J44.1 [facility] [id number] [place] [address] [id number] Sep, [id number] [place] [address] [id number] Sep, [address] [id number] Sep, [facility] [address] [address] Sep, Type 2 diabetes mellitus with diabetic nephropathy E11.21 [place] [id number] [place] [address] [id number] Aug, Influenza J11.1 and Essential (primary) hypertension I10 [facility] [address] [address] Aug, [place] [id number] [place] [address] [id number] Jul, Type 2 diabetes mellitus with diabetic nephropathy E11.21 ; Essential ( primary) hypertension I10 and Chronic obstructive pulmonary disease, unspecified COPD type J44.9 [facility] [id number] [place] [address] [id number] Jun, Dental caries K02.9 [place] [id number] [place] [address] [id number] May, Cough R05 ; Chronic obstructive pulmonary disease, unspecified COPD type J44.9 ; Shortness of breath R06.02 ; Obesity, unspecified E66.9 ; Body mass index (BMI) of 40.0-44.9 in adult Z68.41 and Encounter for immunization Z23 [facility] [address] [id number] May, Dental examination Z01.[address] [id number] May, Essential hypertension I10 [facility] [address]005[address], [place] [id number] Apr, Anemia of renal disease D63.1 ; Type 2 diabetes mellitus with other diabetic kidney complication E11.29 ; Vitamin D deficiency, unspecified E55.9 and Chronic renal disease, unspecified stage N18.9 [facility] [address]005[address], [place] [address] Mar, [address] [place] [address] [id number] Mar, Type 2 diabetes mellitus with other diabetic kidney complication E11.29 ; Essential hypertension I10 ; Chronic renal disease, unspecified stage N18.9 and Chronic obstructive pulmonary disease with acute exacerbation J44.1 [facility] [address]005[address], [place] [id number] Feb, [address] [place] [address] [id number] Feb, Chronic renal disease, unspecified stage N18.9 ; Essential (primary) hypertension I10 and Type 2 diabetes mellitus with other diabetic kidney complication E11.29 [address] [place] [address] [id number] Feb, Type 2 diabetes mellitus with other diabetic kidney complication E11.29 ; Chronic kidney disease, stage IV (severe) N18.4 ; Renal osteodystrophy N25.0 ; Anemia of renal disease D63.1 and Essential (primary) hypertension I10 [address]00565[address], [place] [id number] December, [address]005[address] [id number] December, Chronic obstructive pulmonary disease with acute exacerbation J44.1 ; Essential (primary) hypertension I10 ; Low back pain M54.5 and Right knee pain M25.561 [address] [place] [address] [id number] Nov, Chronic renal disease, unspecified stage N18.9 ; Essential hypertension I10 ; Type 2 diabetes mellitus with other diabetic kidney complication E11.29 and Chronic obstructive pulmonary disease with acute exacerbation J44.1 [address]005[address] [id number] Nov, Chronic renal disease, unspecified stage N18.9 ; Hyperlipidemia, unspecified E78.5 and Essential hypertension I10 [place] [id number] [place] [address] [id number] Oct, Chronic bronchitis, unspecified chronic bronchitis type J42 and Type 2 diabetes mellitus with diabetic nephropathy E11.21 [place] [id number] [place] [address] [id number] Sep, Chronic bronchitis, unspecified chronic bronchitis type J42 ; Essential ( primary) hypertension I10 and Type 2 diabetes mellitus with other diabetic kidney complication E11.29 [place] [id number] [place] [address] [id number] Sep, Chronic obstructive pulmonary disease with acute exacerbation J44.1 [place] [address] [place] [address] [id number] 18 Aug, 2016 Type 2 diabetes mellitus with diabetic nephropathy E11.21 ; Chronic kidney disease, stage IV (severe) N18.4 ; Essential (primary) hypertension I10 and Encounter for immunization Z23 [address] [place] [address] [id number] Aug, Chronic kidney disease, stage IV (severe) N18.4 ; Type 2 diabetes mellitus with diabetic nephropathy E11.21 and Type 2 diabetes mellitus with hyperglycemia E11.65 [address] [place] [address] [id number] May, Anemia of renal disease D63.1 ; Essential (primary) hypertension I10 ; Renal osteodystrophy N25.0 ; Proteinuria R80.9 ; Chronic kidney disease, stage IV (severe) N18.4 and Type 2 diabetes mellitus with other diabetic kidney complication E11.29 [place] [id number] [place] [address] [id number] Mar, Type 2 diabetes mellitus with other diabetic kidney complication E11.29 ; Essential hypertension I10 ; Chronic renal disease, unspecified stage N18.9 and TMJ (temporomandibular joint disorder) M26.60 [place] [address] [place] [address] [id number] Jan, Chronic kidney disease, stage IV (severe) N18.4 and Hyperlipidemia, unspecified E78.5 [place] [address] [place] [address] [id number] December, Type 2 diabetes mellitus with other diabetic kidney complication E11.29 ; Abscess L02.91 and Chronic kidney disease, stage IV (severe) N18.4 [place] [address] [place] [address] [id number] December, Abscess L02.91 [place] [address] [place] [address] [id number] December, [place] [address] [place] [address] [id number] Oct, Renal osteodystrophy N25.0 ; Chronic kidney disease, stage IV (severe) N18.4 and Vitamin D deficiency E55.9 [place] [address] [place] [address] [id number] Oct, [place] [address] [place] [address] [id number] Sep, Type 2 diabetes mellitus with other diabetic kidney complication E11.29 ; Essential hypertension I10 and Chronic airway obstruction, not elsewhere classified J44.9 [place] [address] [place] [address] [id number] Sep, [address] [place] [address] [id number] Aug, [place] [address] [place] [address] [id number] Jul, [address] [place] [address] [id number] Jul, [place] [address] [place] [address] [id number] Jul, Chronic kidney disease, stage IV (severe) N18.4 ; Renal osteodystrophy N25.0 and Proteinuria R80.9 [facility] [id number] [place] [address] 900[address]- [address] Jul, [facility] [address] [place] [address] AVE [id number], [place] [id number] Jun, [facility] [address] [place] [address] AVE [id number], [place] [id number] Jun, [address] [place] [address] [id number] Jun, Diabetes with renal manifestations, type II or unspecified type, uncontrolled 250.42 and Right knee pain M25.561 [facility] [address]005[address], [place] [address] May, [place] [address] [place] [address] [id number] May, Abscess L02.91 ; Encounter for immunization Z23 and Sprain of right knee, unspecified ligament, initial encounter S83.91XA [place] [address] [place] [address] [id number] May, Abscess L02.[address] [id number][place] [id number] May, [address] [place] [address] [id number] Apr, Diabetes with renal manifestations, type II or unspecified type, uncontrolled 250.42 and PPV23 (PNEUMOVAX) DX V03.82 [address] [place] [address] [id number] Mar, [place] [address] [place] [address] [id number] Mar, Proteinuria 791.0 ; Renal osteodystrophy 588.0 ; Chronic kidney disease, Stage IV (severe) 585.4 ; Benign essential hypertension 401.1 and Vitamin D deficiency 268.9 [place] [address] [place] [address] [id number] Feb, Avulsion fracture of ankle 824.8 [address] [place] [address] [id number] Feb, [place] [address] [place] [address] [id number] Feb, [facility] [address] [id number] [id number] Feb, Diabetes with renal manifestations, type II or unspecified type, uncontrolled 250.42 [facility] [id number], [place] [id number] Jan, Diabetes with renal manifestations, type II or unspecified type, uncontrolled 250.42 [facility] [id number], [place] [id number] December, Diabetes with renal manifestations, type II or unspecified type, uncontrolled 250.42 and Unspecified essential hypertension 401.9 [facility] [id number], [place] [id number] December, [facility] [id number] [place] [address] [id number] December, [facility] [id number] [place] [address] [id number] December, Essential hypertension 401.9 [facility] [id number] [place] [address] [id number] Nov, Essential hypertension 401.9 [facility] [id number], [place] [id number] Nov, [facility] [id number] [place] [address] [id number] Nov, [facility] [id number], [place] [id number] Nov, [facility] [address], [place] [address] Nov, [facility] [address]00565100[place], [place] [address] Nov, [facility] [id number], [place] [id number] Oct, [facility] [id number] [place] [address] Oct, [facility] [id number], [place] [id number] Oct, [facility] [address]00565100[place], [place] [address]- [address] Oct, [facility] [place] [facility] [address] [facility] [id number], [place] [address]- 1004 Oct, [facility] [address] [facility] [place] [id number], [place] [id number] Oct, [facility] [address] [facility] [place] [id number] [place] [id number] Oct, [facility] [place] [facility] [address] [facility] [id number][place] [address]- 6[address] Oct, [facility] [place] [facility] [address] [facility] [id number], [place] [address]- [address] Sep, [facility] [address] [facility] [place] [id number] [place] [id number] Sep, [facility] [address] [facility] [place] [id number] [place] [id number] Sep, [facility] [place] [facility] [address]00565[address], [place] [address]- 9[address] Sep, [facility] [address] [facility] [place] [id number] [place] [id number] Aug, [facility] [place] [facility] [address] [facility] [id number], [place] [address]- [address] Aug, [facility] [address] [facility] [place] [id number], [place] [id number] Aug, [facility] [place] [facility] [address] [facility] [id number], [place] [address]- [address] Aug, [facility] [address] [facility] [place] [id number], [place] [id number] Aug, [facility] [place] [facility] [address] [facility] [id number], [place] [address]- 9658 Aug, [facility] [place] [facility] [address] [facility] [id number], [place] [address]- [address] Aug, [facility] [address] [facility] [place] [id number], [place] [id number] Aug, [facility] [place] [facility] [address] [id number], [place] [address]- [address] Jul, [facility] [place] [facility] [address] [facility] [id number], [place] [address]- 7156 Jul, [facility] [address] [facility] [place] [id number], [place] [id number] Jul, [facility] [place] [facility] [address] [facility] [id number], [place] [address]- 7996 Jul, [facility] [address] [facility] [place] [id number] [place] [id number] Jul, [facility] [place] [facility] [address] [facility] [id number], [place] [address]- 4[address] Jul, [facility] [address] [facility] [id number], [place] [id number] Jul, [facility] [address] [facility] [id number], [place] [address]- 9886 Jul, [facility] [place] [facility] [address] [facility] [id number], [place] [address]- 3166 May, [facility] [address] [facility] [place] [id number], [place] [id number] May, [facility] [address] [facility] [place] [id number], [place] [id number] May, [facility] [place] [facility] [address] [facility] [id number], [place] [address]- 0276 May, [facility] [address] [facility] [place] [id number], [place] [id number] Apr, [facility] [place] [facility] [address] [facility] [id number], [place] [address]- 7746 Apr, [facility] [address] [facility] [place] [id number], [place] [id number] Mar, [facility] [place] [facility] [address] [facility] [id number], [place] [address]- 5256 Mar, [facility] [place] [facility] [address] [facility] [id number], [place] [address]- 4395 Mar, [facility] [place] [facility] [address] [id number] [place] [address]- 6939 Mar, [facility] [address] [id number] [place] [id number] Mar, [facility] [address] [id number] [place] [id number] Feb, [facility] [place] [facility] [address] [id number] [place] [address]- 4259 Feb, [facility] [address] [id number] [place] [id number] Jan, [facility] [place] [facility] [address] [id number] [place] [address]- 9286 Jan, [facility] [place] [facility] [address] [facility] [id number], [place] [address]- 4381 Jan, [facility] [address] [id number] [place] [id number] Jan, [facility] [address] [id number] [place] [id number] Jan, [facility] [place] [facility] [address] [facility] [id number], [place] [address]- 2357 Jan, [facility] [address] [facility] [place] [id number], [place] [id number] December, [facility] [place] [facility] [address] [facility] [id number], [place] [address]- 9396 December, [facility] [place] [facility] [address] [facility] [id number][place] [address]- 2621 Nov, [facility] [place] [facility] [address] [facility] [id number], [place] [address]- 5841 Nov, [facility] [address] [facility] [place] [id number], [place] 929877541 Nov, [facility] [place] [facility] [address] [facility] [id number], [place] [address]- 7482 Nov, [facility] [address] [facility] [place] [id number], [place] [id number] Oct, [facility] [place] [facility] [address] [facility] [id number] [place] [address]- 3679 Oct, [facility] [address] [id number] [place] [id number] Oct, [facility] [place] [facility] [id number] [address]- 1393 Oct, [facility] [address] [id number] [place] [id number] Oct, [facility] [place] [facility] [address] [facility] [id number], [place] [address]- 2366 Oct, [facility] [address] [facility] [place] [id number] [place] [id number] Oct, [facility] [place] [facility] [address], [place] [address]- 5414 Oct, [facility] [address] [id number], [place] [id number] Aug, [facility] [place] [facility] [address] [id number], [place] [address]- 6670 Aug, [facility] [id number], [place] [id number] Jul, [facility] [place] [facility] [address] [id number], [place] [address]- 4173 Jul, [facility] [address] [id number], [place] 867775068 Jun, [facility] [place] [facility] [address] [facility] [id number], [place] [address]- 4523 Jun, [facility] [place] [facility] [address] [facility] [id number], [place] [address]- 4629 Jun, [facility] [address] [facility] [place] [id number], [place] 897858100 Jun, [facility] [address] [facility] [place] [id number] [place] [id number] May, [facility] [place] [facility] [address] [facility] [id number], [place] [address]- 7496 May, [facility] [place] [facility] [address] [facility] [id number][place] [address]- 4823 May, [facility] [address] [id number], [place] [id number] May, [facility] [place] [facility] [address], [place] [address]- 1216 May, [facility] [address] [facility] [id number], [place] 890691015 May, [facility] [place] [facility] [address] [facility] [id number], [place] [address]- 7684 May, [facility] [address] [facility] [id number][place] [id number] May, [facility] [id number], [place] [address] Apr, [facility] [id number] [place] [address] Apr, [facility] [place] [id number][place] [id number] Apr, [facility] [id number], [place] [address] Apr, [facility] [id number], [place] [address] Mar, [facility] [address] [id number][place] [id number] Mar, [facility] [place] [address] [id number][place] [id number] Feb, [facility] [address] [id number][place] [id number] Feb, [facility] [address] [id number][place] [id number] Feb, [facility] [address] [facility] [place] [id number][place] [id number] Jan, [facility] [address] [facility] [place] [id number], [place] [address] Jan, [facility] [place] [address] [id number] [place] [id number] Jan, [facility] [place] [address] [id number] [place] [id number] December, [facility] [address] [facility] [place] [id number], [place] [address] December, [facility] [place] [address] [id number] [place] [id number] December, [facility] [place] [address] [id number] [place] [id number] December, [facility] [address] [id number] [place] [id number] Nov, [facility] [place] [address] [id number] [place] [id number] Nov, [facility] [address], [place] [address] Nov, [facility] [place] [address] [id number] [place] [id number] Nov, [facility] [place] [address] [id number] [place] [address] Oct, [facility] [place] [address] [id number] [place] [address] Oct, [facility] [place] [address] [id number] [place] [address] Oct, [facility] [place] [address] [id number] [place] [address] Oct, [facility] [place] [address] [id number] [place] [address] Sep, [facility] [place] [address] [id number] [place] [address] Sep, [facility] [address] [id number], [place] [address] Aug, [facility] [address] [id number] [address] [address] Aug, [facility] [place] [address] [id number] [place] [id number] Aug, [facility] [place] [address] [id number] [place] [id number] Aug, [facility] [place] [address] [id number] [place] [address] Jul, [facility] [place] [address] [id number] [place] [id number] Jul, [facility] [place] [facility] [address] [facility] [id number], [place] [address] Jul, [facility] [place] [facility] [address] [facility] [id number], [place] [address] Jul, [facility] [place] [address] [id number][place] [address] Jul, [facility] [place] [facility] [address], [place] [address] Jul, [facility] [place] [address] [id number][id number] Jul, [facility] [place] [facility] [address] [facility] [id number], [place] [address] Jul, [facility] [place] [facility] [address], [place] [address] Jul, [facility] [place] [address] [id number][place] [id number] Jul, [facility] [place] [address] [id number][place] [id number] Jul, [facility] [place] [facility] [address] [facility] [id number], [place] [address] Jul, [facility] [place] [address] [id number][place] [id number] Jun, [facility] [place] [facility] [address] [facility] [id number], [place] [address]43 Jun, [facility] [place] [facility] [address] [facility] [id number], [place] [address] Jun, [facility] [place] [address] [id number], [place] [id number] Jun, [facility] [place] [facility] [address] [facility] [id number], [place] 7417[place]60[place] [address] Jun, [facility] [place] [facility] [address] [facility] [id number], [place] [address]1289411[place] [address] Jun, [facility] [place] [address] [id number], [place] [id number] Jun, [facility] [place] [facility] [address] [facility] [id number], [place] [address] Jun, [facility] [place] [address] [id number], [place] [id number] Jun, [facility] [place] [facility] [address] [facility] [id number], [place] [address] Jun, [facility] [place] [address] [id number], [id number] May, [facility] [place] [facility] [address], [place] [address] Apr, [facility] [id number] [place] [address] Apr, [facility] [place] [address] [id number], [place] [id number] Apr, [facility] [place] [address] [id number], [place] 096117880 Apr, [facility] [place] [address] [id number], [place] 088653153 Apr, [facility] [place] [address] [id number], [place] [id number] Apr, [facility] [place] [address] [id number], [place] 487011228 Apr, [facility] [place] [address] [id number], [place] 839869914 Mar, [facility] [place] [address] [id number], [place] [id number] Mar, [facility] [place] [address] [id number], [place] [address]46219141 Mar, [facility] [place] [address] [id number] [place] [id number] Mar, [facility] [place] [address] [id number] [place] [id number] Mar, [facility] [place] [address] [id number] [place] [id number] Mar, [facility] [place] [address] [id number] [place] [id number] Mar, [facility] [place] [address] [id number] [place] [id number] Feb, [facility] [place] [address] [id number] [place] [id number] Feb, [facility] [place] [address] [id number] [place] [id number] Jan, [facility] [place] [address] [id number] [place] [id number] Jan, [facility] [place] [address] [id number] [place] [address]36[address] Jan, [facility] [place] [address] [id number] [place] [id number] Jan, [facility] [place] [address] [id number] [place] 7101[place]81 Jan, [facility] [place] [address] [id number] [place] [id number] Jan, [facility] [place] [address] [id number] [place] [id number] December, [facility] [place] [address] [id number] [place] [id number] Nov, [facility] [place] [address] [id number] [place] 188864836 Oct, [facility] [place] [address] [id number] [place] [id number] Oct, [facility] [place] [address] [id number] [place] [id number] Oct, [facility] [address], [place] [address] Oct, [facility] [place] [address] [id number] [place] [id number] Oct, [facility] [place] [address] [id number] [place] 145591431 Oct, [facility] [place] [address] [id number] [place] [id number] Oct, [facility] [place] [address] [id number] [place] [id number] Oct, [facility] [place] [address] [id number] [place]80 Oct, [facility] [place] [address] [id number] [place] Oct, [facility] [place] [address] [id number] [place] [id number] Sep, [facility] [address] [facility] [id number], [place] [address]- [address] Sep, [facility] [place] [address] [id number] [place] [id number] Sep, [facility] [place] [address] [id number] [place] 593[place]25[address] Aug, [facility] [place] [address] [id number] [place] [id number] Aug, [facility] [place] [address] [id number] [place] 379[address]149 Aug, [facility] [id number], [place] [address] Aug, [facility] [id number], [place] [address] Jul, [facility] [id number] [place] [address]- 7401 Jul, [facility] [address] [id number] [address]- [address] Jul, [facility] [id number], [place] [address]- [address] Jul, [facility] [place] [facility] [address] [id number] [place] [address]- [address] 17 Jun, 2011 [facility] [place] [facility] [address] [id number] [place] [address]- 1652 04 Jun, 2011 [facility] [place] [facility] [address] [id number] [place] [address]- 8016 May, [facility] [place] [facility] [address] [id number] [place] [address]- 0747 May, [facility] [place] [facility] [address] [id number] [place] [address]- 65[address] December, [facility] [place] [facility] [address] [id number] [place] [address]- 4495 December, [facility] [place] [facility] [address] [id number] [place] [address]- 4273 Aug, [facility] [place] [facility] [address] [id number] [place] [address]- 4984 29 Jul, 2010 [facility] [place] [facility] [address] [id number] [place] [address]- 2494 28 Jul, 2010 [facility] [place] [facility] [address] [id number] [place] [address]- 1672 23 Jul, 2010 [facility] [place] [facility] [address] [id number] [place]- [address]267 16 Jul, 2010 [facility] [place] [facility] [address] [id number] [place] [address]- 2541 16 Jul, 2010 [facility] [place] [facility] [address] [id number] [place] [address] 2542 03 Jul, 2010 [facility] [place] [facility] [address] [id number] [place] [address] 2546 30 Jun, 2010 [facility] [place] [facility] [address] [id number] [place] [address] 2546 30 Jun, 2010 [facility] [place] [facility] [address] [id number] [place] [address]- 6[address] Jun, [facility] [id number], [place]- [address] Jun, [facility] [id number], [place] [address]- 8[address] Jun, [facility] [id number], [place] [address]- [address] May, [facility] [id number] [place] [address]- 5788 December, [facility] [id number] [place] [address]- 1769 December, [facility] [id number] [place] [address]- 9579 Oct, [facility] [address] [id number], [place] [address]- 8[address] Jul, [facility] [id number], [place] [address]- 2749 Jul, [facility] [id number]- 4027 Jul, [facility] [id number], [place] [address]- 0[address] Jun, [facility] [id number], [place] [address]- [address] May, [facility] [id number] 264[place]- [address]77 Jun, IMMUNIZATIONS No Known Immunizations SOCIAL HISTORY Never Assessed REASON FOR VISIT Diabetes visit Lynne TERAN PLAN OF CARE Activity Details Follow Up 4 Weeks Reason:dm gerd VITAL SIGNS Height 54 in 2018-03-26 Weight 300.4 lbs 2018-03-26 Temperature 99 degrees Fahrenheit 2018-03-26 Heart Rate 130 bpm 2018-03-26 Respiratory Rate 24 2018-03-26 BMI 72.42 kg/m2 2018-03-26 Blood pressure systolic 110 mmHg 2018-03-26 Blood pressure diastolic 70 mmHg 2018-03-26 MEDICATIONS Medication Instructions Dosage Frequency Start Date End Date Duration Status Test strips 1 subcutaneously 2 times a day as directed 12h Aug, Active Vitamin D (Ergocalciferol) 64485 UNIT Orally twice a month 1 capsule Active Albuterol Sulfate (2.5 MG/3ML) 0.083% Inhalation Three times a day 3 ml as needed 8h Nov, Active Clonidine HCl 0.1 MG Orally Once a day 1 tablet at bedtime 24h Active Oxygen & Tubing by inhalation route 13/03 / nc w protable O2 and conserving device Oct, Active Aspirin 81 81 MG Orally Once a day 1 tablet 24h Active HydrALAZINE HCl 50 mg Orally every 8 hours 1 1/2 tablets 8h Active Bathtub Safety Rail - as directed December, Active ProAir HFA 108 (90 Base) MCG/ACT Inhalation every 4 hrs 2 puffs as needed 4h Active Sertraline HCl 100 MG Orally Once a day 1 tablet 24h Active Acetaminophen 325 MG Orally every 4 hrs 1 capsule as needed 4h Not -Taking Eliquis 5 mg Orally 2 times a day 1 tablet 12h Active Loratadine 10 MG TAKE ONE (1) TABLET BY MOUTH DAILY... Active Esomeprazole Magnesium 40 mg Orally Once a day 1 capsule 24h Mar, 30 day(s) Active Mevacor 20 MG TAKE (1) TABLET BY MOUTH ONCE DAILY WITH A MEAL. Active Levemir 100 UNIT/ML Subcutaneous 2 times a day 74 units in AM & 64 units at HS 12h Active Nitroglycerin 0.4 MG Active Bath/Shower Seat - as directed December, Active True Metrix Blood Glucose Test - CHECK BLOOD SUGAR TWICE DAILY DIRECTED.. Active Glucometer as directed Aug, Active Amlodipine Besylate 10 mg Orally Once a day 1 tablet 24h 0 Active Anoro Ellipta 62.5-25 MCG/INH Inhalation Once a day 1 puff 24h Nov, Not-Taking RESULTS Name Result Date Reference Range A1C (IN HOUSE) 2018-03-26 A1C IN HOUSE 6.9 4.3 - 5.6 % Previous A1c 7.7 Lot [id number] Exp date 11/2019 H PYLORI (IN HOUSE) 2018-03-26 H. PYLORI negative Control + Lot # [id number] Exp date 11/06 PROCEDURES Procedure Date Ordered Result Body Site COUNT INCLUDES THE [facility] VISIT ESTABLISHED PATIENT Mar 26, 2018 IMMUNOASSAY,INFECTIOUS AGENT Mar 26, 2018 GLYCATED HEMOGLOBIN TEST Mar 26, 2018 INSTRUCTIONS MEDICATIONS ADMINISTERED No Known Medications MEDICAL [...]
--- OUTSIDE RECORDS SUMMARY | 2018-07-11 11:13 | XMS REPORT ---
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 Name Role Phone JOSEP GONG Unavailable PROBLEMS Type Condition ICD9-CM Code TNY84-TG Code Onset Dates Condition Status SNOMED Code Problem Chronic bronchitis, unspecified chronic bronchitis type J42 Active 98415772 Problem Vitamin D deficiency, unspecified E55.9 Active 61819027 Problem Chronic obstructive pulmonary disease with acute exacerbation J44.1 Active 153760197 Problem Gastric reflux K21.9 Active 283854597 Problem Right knee pain M25.561 Active 39997432 Problem Paroxysmal atrial fibrillation I48.0 Active 890060738 Problem Sprain of right knee, unspecified ligament, initial encounter S83.91XA Active 66566104 Problem Abscess L02.91 Active 616911891 Problem Obesity, unspecified E66.9 Active [id number] Problem Chronic obstructive pulmonary disease, unspecified COPD type J44.9 Active 25124420 Problem Chronic congestive heart failure, unspecified heart failure type I50.9 Active 04371249 Problem Body mass index (BMI) of 40.0-44.9 in adult Z68.41 Active 966474099 Problem Hyperlipidemia, unspecified E78.5 Active 95640114 Problem Chronic renal disease, unspecified stage N18.9 Active 526912925 Problem Type 2 diabetes mellitus with other diabetic kidney complication E11.29 Active 447472784 Problem Essential hypertension I10 Active 95110262 Problem Proteinuria R80.9 Active 90482619 Problem Renal osteodystrophy N25.0 Active 09499316 Problem Chronic kidney disease, stage IV (severe) N18.4 Active 776293894 Problem Essential (primary) hypertension I10 Active 35249472 Problem Venous (peripheral) insufficiency I87.2 Active 93633769 Problem Anemia of renal disease D63.1 Active 150799306 Problem Type 2 diabetes mellitus with diabetic nephropathy E11.21 Active 318324441 ALLERGIES No Information ENCOUNTERS Encounter Location Date Diagnosis [id number] [id number] Apr, [id number] [place] [address] [id number] Mar, Type 2 diabetes mellitus with diabetic nephropathy E11.21 and Gastric reflux K21.9 [id number] [place] [address] [id number] Mar, Type 2 diabetes mellitus with diabetic nephropathy E11.21 ; Gastric reflux K21.9 and Chronic kidney disease, stage IV (severe) N18.[address] [place] [address] [id number] Feb, [address] [id number] Feb, Type 2 diabetes mellitus with other diabetic kidney complication E11.29 [id number] [place] [address] [id number] Jan, Body mass index (BMI) 70 or greater, adult Z68.45 and Type 2 diabetes mellitus with other diabetic kidney complication E11.29 [address] [place] [address] [id number] Nov, Body mass index (BMI) 70 or greater, adult Z68.45 ; Chronic obstructive pulmonary disease, unspecified COPD type J44.9 ; Chronic kidney disease, stage IV (severe) N18.4 and Gastric reflux K21.9 [id number] [place] [address] [id number] Oct, Body mass index (BMI) 70 or greater, adult Z68.45 ; Type 2 diabetes mellitus with other diabetic kidney complication E11.29 ; Chronic obstructive pulmonary disease with acute exacerbation J44.1 and Paroxysmal atrial fibrillation I48.0 [address] [place] [address] [id number] Oct, [id number] [place] [address] [id number] Oct, Type 2 diabetes mellitus with diabetic nephropathy E11.21 ; Chronic renal disease, unspecified stage N18.9 ; Chronic congestive heart failure, unspecified heart failure type I50.9 and Chronic obstructive pulmonary disease with acute exacerbation J44.1 [facility] [id number] [id number] Sep, [facility] [id number] [place] [address] [id number] Sep, [facility] [id number] [place] [address] [id number] Sep, [facility] [address] [address] Sep, Type 2 diabetes mellitus with diabetic nephropathy E11.21 [facility] [address] [place] [address] [id number] Aug, Influenza J11.1 and Essential (primary) hypertension I10 [facility] [id number] [place] [address]88- 2546 Aug, [id number] [place] [address] [id number] Jul, Type 2 diabetes mellitus with diabetic nephropathy E11.21 ; Essential ( primary) hypertension I10 and Chronic obstructive pulmonary disease, unspecified COPD type J44.9 [facility] [id number] [place] [address] [id number] Jun, Dental caries K02.9 [id number] [place] [address] [id number] May, Cough R05 ; Chronic obstructive pulmonary disease, unspecified COPD type J44.9 ; Shortness of breath R06.02 ; Obesity, unspecified E66.9 ; Body mass index (BMI) of 40.0-44.9 in adult Z68.41 and Encounter for immunization Z23 [facility] [id number] [place] [address] [id number] May, Dental examination Z01.20 [address] [place] [address] [id number] May, Essential hypertension I10 [facility] [id number] [place] [address] [id number] Apr, Anemia of renal disease D63.1 ; Type 2 diabetes mellitus with other diabetic kidney complication E11.29 ; Vitamin D deficiency, unspecified E55.9 and Chronic renal disease, unspecified stage N18.9 [facility] [address] [address] Mar, [facility] [address] [id number] Mar, Type 2 diabetes mellitus with other diabetic kidney complication E11.29 ; Essential hypertension I10 ; Chronic renal disease, unspecified stage N18.9 and Chronic obstructive pulmonary disease with acute exacerbation J44.1 [facility] [id number] [id number] Feb, [id number] [place] [address] [id number] Feb, Chronic renal disease, unspecified stage N18.9 ; Essential (primary) hypertension I10 and Type 2 diabetes mellitus with other diabetic kidney complication E11.29 [facility] [address] [place] [address] [id number] Feb, Type 2 diabetes mellitus with other diabetic kidney complication E11.29 ; Chronic kidney disease, stage IV (severe) N18.4 ; Renal osteodystrophy N25.0 ; Anemia of renal disease D63.1 and Essential (primary) hypertension I10 [facility] [id number], [place] [id number] December, [address] [place] [address] [id number] December, Chronic obstructive pulmonary disease with acute exacerbation J44.1 ; Essential (primary) hypertension I10 ; Low back pain M54.5 and Right knee pain M25.561 [facility] [address] [id number] Nov, Chronic renal disease, unspecified stage N18.9 ; Essential hypertension I10 ; Type 2 diabetes mellitus with other diabetic kidney complication E11.29 and Chronic obstructive pulmonary disease with acute exacerbation J44.1 [facility] [address] [id number] [id number] Nov, Chronic renal disease, unspecified stage N18.9 ; Hyperlipidemia, unspecified E78.5 and Essential hypertension I10 [id number] [id number] Oct, Chronic bronchitis, unspecified chronic bronchitis type J42 and Type 2 diabetes mellitus with diabetic nephropathy E11.21 [address] [place] [address] [id number] Sep, Chronic bronchitis, unspecified chronic bronchitis type J42 ; Essential ( primary) hypertension I10 and Type 2 diabetes mellitus with other diabetic kidney complication E11.29 [address] [place] [address] [id number] Sep, Chronic obstructive pulmonary disease with acute exacerbation J44.1 [id number] [place] [address] [id number] Aug, Type 2 diabetes mellitus with diabetic nephropathy E11.21 ; Chronic kidney disease, stage IV (severe) N18.4 ; Essential (primary) hypertension I10 and Encounter for immunization Z23 [address] [place] [address] [id number] Aug, Chronic kidney disease, stage IV (severe) N18.4 ; Type 2 diabetes mellitus with diabetic nephropathy E11.21 and Type 2 diabetes mellitus with hyperglycemia E11.65 [address] [place] [address] [id number] May, Anemia of renal disease D63.1 ; Essential (primary) hypertension I10 ; Renal osteodystrophy N25.0 ; Proteinuria R80.9 ; Chronic kidney disease, stage IV (severe) N18.4 and Type 2 diabetes mellitus with other diabetic kidney complication E11.29 [address] [id number] Mar, Type 2 diabetes mellitus with other diabetic kidney complication E11.29 ; Essential hypertension I10 ; Chronic renal disease, unspecified stage N18.9 and TMJ (temporomandibular joint disorder) M26.60 [address] [place] [address] [id number] Jan, Chronic kidney disease, stage IV (severe) N18.4 and Hyperlipidemia, unspecified E78.5 [address] [place] [address] [id number] December, Type 2 diabetes mellitus with other diabetic kidney complication E11.29 ; Abscess L02.91 and Chronic kidney disease, stage IV (severe) N18.4 [facility] [id number] [id number] December, Abscess L02.91 [facility] [address] [place] [address] [id number] December, [facility] [address] [place] [address] [id number] Oct, Renal osteodystrophy N25.0 ; Chronic kidney disease, stage IV (severe) N18.4 and Vitamin D deficiency E55.9 [facility] [address] [place] [address] [id number] Oct, [address] [place] [address] [id number] Sep, Type 2 diabetes mellitus with other diabetic kidney complication E11.29 ; Essential hypertension I10 and Chronic airway obstruction, not elsewhere classified J44.9 [facility] [id number], [place] [id number] Sep, [address] [place] [address] [id number] Aug, [address] [id number] Jul, [id number] [id number] Jul, [address] [place] [address] [id number] Jul, Chronic kidney disease, stage IV (severe) N18.4 ; Renal osteodystrophy N25.0 and Proteinuria R80.9 [facility] [id number] [address] Jul, [facility] [address] [id number] [id number] Jun, [facility] [address] [id number] [place] [id number] Jun, [address] [id number] [id number] Jun, Diabetes with renal manifestations, type II or unspecified type, uncontrolled 250.42 and Right knee pain M25.561 [facility] [id number], [place] [address] May, [address] [place] [address] [id number] May, Abscess L02.91 ; Encounter for immunization Z23 and Sprain of right knee, unspecified ligament, initial encounter S83.91XA [address] [place] [address] [id number] May, Abscess L02.[id number] [place] [address] [id number] May, [address] [place] [address] [id number] Apr, Diabetes with renal manifestations, type II or unspecified type, uncontrolled 250.42 and PPV23 (PNEUMOVAX) DX V03.82 [address] [place] [address] [id number] Mar, [address] [place] [address] [id number] Mar, Proteinuria 791.0 ; Renal osteodystrophy 588.0 ; Chronic kidney disease, Stage IV (severe) 585.4 ; Benign essential hypertension 401.1 and Vitamin D deficiency 268.9 [address] [place] [address] [id number] Feb, Avulsion fracture of ankle 824.8 [address] [place] [address] [id number] Feb, [address] [place] [address] [id number] Feb, [id number] [place] [address] [id number] Feb, Diabetes with renal manifestations, type II or unspecified type, uncontrolled 250.42 [address] [id number] Jan, Diabetes with renal manifestations, type II or unspecified type, uncontrolled 250.42 [facility] [id number] [place] [address] [id number] December, Diabetes with renal manifestations, type II or unspecified type, uncontrolled 250.42 and Unspecified essential hypertension 401.9 [facility] [place] [id number] [place] [address] [id number] December, [facility] [place] [id number] [place] [address] [id number] December, [facility] [place] [id number] [place] [address] [id number] December, Essential hypertension 401.9 [facility] [place] [id number] [place] [address] [id number] Nov, Essential hypertension 401.9 [facility] [place] [id number] [place] [address] [id number] Nov, [facility] [id number] [place] [address] [id number] Nov, [facility] [id number] [place] [address] [id number] Nov, [facility] [id number] [place] [address] 83940- 2546 Nov, [facility] [id number] [place] [address] 56195- 2546 Nov, [facility] [id number] [place] [address] [id number] Oct, [facility] [place] [facility] [id number] [place] [address] 38449- 2546 Oct, [facility] [id number] [place] [address] [id number] Oct, [facility] [place] [facility] [id number] [place] [address] 68139- 2546 Oct, [facility] [place] [facility] [id number] [place] [address] 67743- 0856 Oct, [facility] [address] [id number] [id number] Oct, [facility] [address] [facility] [id number] [place] [id number] Oct, [facility] [place] [facility] [address] [facility] [id number], [place] [address]- 2546 Oct, [facility] [place] [facility] [address], [place] [address]- 45[address] Sep, [facility] [address] [id number] [place] [id number] Sep, [facility] [address] [id number] [place] [id number] Sep, [facility] [place] [facility] [address], [place] [address]- 9879 Sep, [facility] [id number], [place] [id number] Aug, [facility] [place] [facility] [address], [place] [address]- 1625 Aug, [facility] [address] [facility] [id number] [id number] Aug, [facility] [place] [facility] [address], [place] [address]- 7973 Aug, [facility] [address] [facility] [id number] [id number] Aug, [facility] [place] [facility] [address], [place] [address]- 4682 Aug, [facility] [place] [facility] [address] [facility] [id number] [address]- 7302 Aug, [facility] [address] [facility] [id number][place] [id number] Aug, [facility] [place] [facility] [id number], [place] [address]- 9950 Jul, [facility] [place] [facility] [address], [place] [address]- 9343 Jul, [facility] [address] [id number] [place] [id number] Jul, [facility] [place] [facility] [address] [id number] [place] [address]- 2736 Jul, [facility] [address] [id number] [place] [id number] Jul, [facility] [place] [facility] [address] [id number] [place] [address]- 6706 Jul, [facility] [address] [id number] [place] [id number] Jul, [facility] [place] [facility] [address] [facility] [id number] [place] [address]- 4036 Jul, [facility] [place] [facility] [address] [facility] [id number], [place] [address]- 7376 May, [facility] [address] [id number] [id number] May, [facility] [address] [id number], [place] [id number] May, [facility] [place] [facility] [address] [facility] [id number], [place] [address]- 0266 May, [facility] [address] [facility] [id number], [place] [id number] Apr, [facility] [place] [facility] [address] [facility] [id number], [place] [address]- 6836 Apr, [facility] [address] [facility] [id number] [id number] Mar, [facility] [place] [facility] [address] [facility] [id number] [place] [address]- 3106 Mar, [facility] [place] [facility] [address] [facility] [id number], [place] [address]- 7506 Mar, [facility] [place] [facility] [address] [facility] [id number], [place] [address]- 3946 Mar, [facility] [address] [id number] [id number] Mar, [facility] [address] [id number] [place] [id number] Feb, [facility] [place] [facility] [address] [id number] [place] [address]- 4726 Feb, [facility] [address] [id number] [place] [id number] Jan, [facility] [place] [facility] [address] [id number] [place] [address]- 8426 Jan, [facility] [place] [facility] [address] [id number] [place] [address]- 5591 Jan, [facility] [address] [id number] [place] [id number] Jan, [facility] [address] [id number] [place] [id number] Jan, [facility] [place] [facility] [address] [facility] [id number] [place] [address]- 0696 Jan, [facility] [address] [id number] [place] [id number] December, [facility] [place] [facility] [address] [facility] [id number] [place] [address]- 5516 December, [facility] [place] [facility] [address] [facility] [id number] [place] [address]- 3379 Nov, [facility] [place] [facility] [address] [facility] [id number] [place] [address]- 0926 Nov, [facility] [address] [id number] [place] [id number] Nov, [facility] [place] [facility] [address] [id number] [place] [address]- 1516 Nov, [facility] [address] [id number] [place] [id number] Oct, [facility] [place] [facility] [address] [id number] [place] [address]- 2736 Oct, [facility] [address] [id number] [place] [id number] Oct, [facility] [address] [id number], [place] [address]- 6836 Oct, [facility] [address] [id number], [place] [id number] Oct, [facility] [address] [facility] [id number], [place] [address]- 1868 Oct, [facility] [address] [id number] [place] [id number] Oct, [facility] [place] [facility] [address] [facility] [id number], [place] [address]- 0550 Oct, [facility] [address] [facility] [id number] [id number] Aug, [facility] [place] [facility] [address], [place] [address]- 8041 Aug, [facility] [address] [facility] [id number] 085792698 Jul, [facility] [place] [facility] [id number], [place] [address]- 2986 Jul, [facility] [address] [id number], [place] [id number] Jun, [facility] [place] [facility] [id number], [place] [address]- 3246 Jun, [facility] [place] [facility] [address] [facility] [id number], [place] [address]- 2579 Jun, [facility] [address] [facility] [id number], [place] [id number] Jun, [facility] [address] [facility] [id number], [place] [id number] May, [facility] [place] [facility] [address] [facility] [id number], [place] [address]- 1690 May, [facility] [place] [facility] [address] [facility] [id number], [place] [address]- 4216 May, [facility] [address] [id number] [place] [id number] May, [facility] [place] [facility] [address] [facility] [id number], [place] [address]- 5816 May, [facility] [address] [id number] [place] [id number] May, [facility] [place] [facility] [address] [facility] [id number], [place] [address]- 4122 May, [facility] [address] [id number], [place] [id number] May, [facility] [place] [facility] [address] [facility] [id number][place] [address]- 1669 Apr, [facility] [place] [facility] [address] [facility] [id number], [place] [address]- 8444 Apr, [facility] [address] [facility] [id number], [place] [id number] Apr, [facility] [place] [facility] [address] [facility] [id number], [place] [address]- 4148 Apr, [facility] [place] [facility] [address] [facility] [id number], [place] 997291- 4268 Mar, [facility] [address] [id number], [place] [id number] Mar, [facility] [address] [id number], [place] [id number] Feb, [facility] [address] [id number], [place] 078340040 Feb, [facility] [address] [id number] [place] [id number] Feb, [facility] [address] [id number] [place] [id number] Jan, [facility] [place] [facility] [address] [facility] [id number], [place] [address]- 7288 Jan, [facility] [address] [id number] [place] [id number] Jan, [facility] [address] [id number] [place] [id number] December, [facility] [address] [id number][place] [address]- 2546 December, [facility] [address] [id number] [place] [id number] December, [facility] [address] [id number] [place] [id number] December, [facility] [address] [id number] [place] [id number] Nov, [facility] [address] [id number] [place] [id number] Nov, [facility] [address] [facility] [id number], [place] [address]- 2546 Nov, [facility] [address] [id number] [place] [id number] Nov, [facility] [address] [id number] [place] [id number] Oct, [facility] [address] [id number] [place] [id number] Oct, [facility] [address] [id number] [place] [id number] Oct, [facility] [address] [id number] [place] [id number] Oct, [facility] [address] [id number] [place] [id number] Sep, [facility] [address] [id number] [place] [id number] Sep, [facility] [address] [facility] [id number], [place] [address] Aug, [facility] [address] [facility] [id number], [place] [address] Aug, [facility] [address] [id number] [place] [id number] Aug, [facility] [address] [id number] [id number] Aug, [facility] [address] [id number] [place] [id number] Jul, [facility] [address] [id number] [place] [id number] Jul, [facility] [address] [facility] [id number], [place] [address] Jul, [facility] [address] [facility] [id number], [place] [address] Jul, [facility] [address] [id number] [place] [id number] Jul, [facility] [address] [id number] [address] Jul, [facility] [address] [facility] [id number][place] [id number] Jul, [facility] [address] [facility] [id number], [place] [address] Jul, [facility] [address] [facility] [id number], [place] [address] Jul, [facility] [address] [id number][place] [id number] Jul, [facility] [address] [facility] [id number][place] [id number] Jul, [facility] [place] [facility] [address] [facility] [id number][place] [address] Jul, [facility] [place] [address] [facility] [id number][place] [id number] Jun, [facility] [place] [facility] [address] [facility] [id number], [place] [address] Jun, [facility] [place] [facility] [address] [facility] [id number][place] [address] Jun, [facility] [place] [address] [facility] [id number][place] [id number] Jun, [facility] [place] [facility] [address] [facility] [id number], [place] [address] Jun, [facility] [place] [facility] [address] [facility] [id number], [place] [address] Jun, [facility] [place] [address] [id number][place] [id number] Jun, [facility] [place] [facility] [address] [facility] [id number], [place] 35964147[place] [address] Jun, [facility] [place] [address] [id number][place] [id number] Jun, [facility] [place] [facility] [address] [facility] [id number][place] [address]33[place] [address] Jun, [facility] [place] [address] [id number][place] [id number] May, [facility] [address] [facility] [id number], [place] [address] Apr, [facility] [address], [place] [address] Apr, [facility] [place] [address] [id number], [place] [id number] Apr, [facility] [place] [address] [id number][place] [id number] Apr, [facility] [place] [address] [id number][place] [id number] Apr, [facility] [place] [address] [id number][place] [id number] Apr, [facility] [place] [address] [id number][place] [address]110[address]75[address] Apr, [facility] [place] [address] [id number], [place] [id number] Mar, [facility] [place] [address] [id number][place] [id number] Mar, [facility] [place] [address] [id number], [place] [id number] Mar, [facility] [place] [address] [id number][place] [id number] Mar, [facility] [place] [address] [id number], [place] [id number] Mar, [facility] [place] [address] [id number] [place] [id number] Mar, [facility] [place] [address] [id number] [place] [id number] Mar, [facility] [place] [address] [id number] [place] [id number] Feb, [facility] [place] [address] [id number] [place] [id number] Feb, [facility] [place] [address] [id number] [place] [id number] Jan, [facility] [place] [address] [id number] [place] [id number] Jan, [facility] [place] [address] [id number] [place] [id number] Jan, [facility] [place] [address] [id number] [place] [id number] Jan, [facility] [place] [address] [id number] [place] [id number] Jan, [facility] [place] [address] [id number] [place] [id number] Jan, [facility] [place] [address] [id number] [place] [id number] December, [facility] [place] [address] [id number] [place] [id number] Nov, [facility] [place] [address] [id number] [place] [id number] Oct, [facility] [place] [address] [id number] [place] [address] Oct, [facility] [place] [address] [id number] [place] [id number] Oct, [facility] [address] [facility] [id number] [place] [address] Oct, [facility] [place] [address] [id number] [place] [id number] Oct, [facility] [place] [address] [id number] [place] [address] Oct, [facility] [place] [address] [id number] [place] [id number] Oct, [facility] [place] [address] [id number] [place] [id number] Oct, [facility] [place] [address] [id number] [place] [id number] Oct, [facility] [place] [address] [id number] [place] [id number] Oct, [facility] [place] [address] [id number] [place] [id number] Sep, [facility] [address] [facility] [id number], [place] [address] Sep, [facility] [place] [address] [id number] [place] [id number] Sep, [facility] [place] [address] [id number] [place] [id number] Aug, [facility] [address] [id number] [place] [id number] Aug, [facility] [place] [address] [id number] [place] [id number] Aug, [facility] [address], [place] [address] Aug, [facility] [place] [facility] [address]65[address], [place] [address] Jul, [facility] [place] [facility] [address], [place] [address] Jul, [facility] [place] [facility] [address], [place] [address] Jul, [facility] [place] [facility] [address] [id number], [place] [address] Jul, [facility] [place] [facility] [address], [place] [address] Jun, [facility] [place] [facility] [address], [place] [address] Jun, [facility] [place] [facility] [address] [id number] [place] [address] May, [facility] [place] [facility] [address] [id number] [place] [address]- [address] May, [facility] [place] [facility] [address] [id number] [place] [address]- [address] December, [facility] [place] [facility] [address] [id number] [place] [address]- [address] December, [facility] [place] [facility] [address] [id number] [place] [address]- [address] Aug, [facility] [place] [facility] [address] [id number] [place] [address]- [address]491 Jul, [facility] [place] [facility] [address] [id number] [place] [address]- [address]326 Jul, [facility] [place] [facility] [address] [id number] [place] [address]- [address] Jul, [facility] [place] [facility] [address] [id number] [place] [address]- [address] Jul, [facility] [place] [facility] [address] [id number] [place] [address]- [address] Jul, [facility] [place] [facility] [address] [id number] [place] [address]- [address] Jul, [facility] [place] [facility] [address] [id number] [place] [address]- [address] 30 Jun, 2010 [facility] [place] [facility] [address] [id number] [place] [address] 254 Jun, [facility] [place] [facility] [address] [id number] [place] [address]- [address]44 29 Jun, 2010 [facility] [place] [facility] [address] [id number] [place] [address] Jun, [facility] [place] [facility] [address] [id number], [place] [address] Jun, [facility] [address], [place] [address] May, [facility] [address], [place] [address] December, [facility] [address], [place] [address] December, [facility] [address], [place] [address]- [address] Oct, [facility] [id number] [place] [address] Jul, [facility] [id number] [place] [address]- 57[address] Jul, [facility] [id number] [place] [address]- [address] Jul, [facility] [address], [place] [address] Jun, [facility] [address], [place] [address] May, [facility] [address], [place] [address] Jun, IMMUNIZATIONS No Known Immunizations SOCIAL HISTORY Never Assessed REASON FOR VISIT samples PLAN OF CARE VITAL SIGNS MEDICATIONS Unknown [...]
--- OUTSIDE RECORDS SUMMARY | 2018-07-11 11:13 | XMS REPORT ---
Author Author JOSEP GONG [facility] Address [address] [place] [address] Care Team Providers Care Housing Relocation Name Role Phone JOSEP GONG Unavailable PROBLEMS Type Condition ICD9-CM Code CVV18-ST Code Onset Dates Condition Status SNOMED Code Problem Chronic bronchitis, unspecified chronic bronchitis type J42 Active 45267627 Problem Vitamin D deficiency, unspecified E55.9 Active 06828012 Problem Chronic obstructive pulmonary disease with acute exacerbation J44.1 Active 404726538 Problem Gastric reflux K21.9 Active 920883356 Problem Right knee pain M25.561 Active 85127275 Problem Paroxysmal atrial fibrillation I48.0 Active 431142745 Problem Sprain of right knee, unspecified ligament, initial encounter S83.91XA Active 82705211 Problem Abscess L02.91 Active 722556822 Problem Obesity, unspecified E66.9 Active 65324199634573 Problem Chronic obstructive pulmonary disease, unspecified COPD type J44.9 Active 17121615 Problem Chronic congestive heart failure, unspecified heart failure type I50.9 Active 15904570 Problem Body mass index (BMI) of 40.0-44.9 in adult Z68.41 Active 046333853 Problem Hyperlipidemia, unspecified E78.5 Active 18365629 Problem Chronic renal disease, unspecified stage N18.9 Active 672241872 Problem Type 2 diabetes mellitus with other diabetic kidney complication E11.29 Active 264581506 Problem Essential hypertension I10 Active 76600571 Problem Proteinuria R80.9 Active 75030140 Problem Renal osteodystrophy N25.0 Active 37809462 Problem Chronic kidney disease, stage IV (severe) N18.4 Active 547868793 Problem Essential (primary) hypertension I10 Active 34921360 Problem Venous (peripheral) insufficiency I87.2 Active 84555870 Problem Anemia of renal disease D63.1 Active 427605203 Problem Type 2 diabetes mellitus with diabetic nephropathy E11.21 Active 695556790 ALLERGIES No Information ENCOUNTERS Encounter Location Date Diagnosis [id number] [id number] Apr, [id number] [place] [address] [id number] Mar, Type 2 diabetes mellitus with diabetic nephropathy E11.21 and Gastric reflux K21.9 [id number] [place] [address] [id number] Mar, Type 2 diabetes mellitus with diabetic nephropathy E11.21 ; Gastric reflux K21.9 and Chronic kidney disease, stage IV (severe) N18.[address] [place] [id number] Feb, [address] [id number] Feb, Type 2 diabetes mellitus with other diabetic kidney complication E11.29 [id number] [place] [address] [id number] Jan, Body mass index (BMI) 70 or greater, adult Z68.45 and Type 2 diabetes mellitus with other diabetic kidney complication E11.29 [address] [place] [address] [id number] Nov, Body mass index (BMI) 70 or greater, adult Z68.45 ; Chronic obstructive pulmonary disease, unspecified COPD type J44.9 ; Chronic kidney disease, stage IV (severe) N18.4 and Gastric reflux K21.9 [id number] [place] [address] [id number] Oct, Body mass index (BMI) 70 or greater, adult Z68.45 ; Type 2 diabetes mellitus with other diabetic kidney complication E11.29 ; Chronic obstructive pulmonary disease with acute exacerbation J44.1 and Paroxysmal atrial fibrillation I48.0 [address] [place] [address] [id number] Oct, [id number] [place] [address] [id number] Oct, Type 2 diabetes mellitus with diabetic nephropathy E11.21 ; Chronic renal disease, unspecified stage N18.9 ; Chronic congestive heart failure, unspecified heart failure type I50.9 and Chronic obstructive pulmonary disease with acute exacerbation J44.1 [facility] [id number] [id number] Sep, [facility] [id number] [place] [address] [id number] Sep, [facility] [id number] [place] [address] [id number] Sep, [facility] [address] [address] Sep, Type 2 diabetes mellitus with diabetic nephropathy E11.21 [facility] [address] [place] [address] [id number] Aug, Influenza J11.1 and Essential (primary) hypertension I10 [facility] [id number] [place] [address]- 2546 Aug, [id number] [place] [address] [id number] Jul, Type 2 diabetes mellitus with diabetic nephropathy E11.21 ; Essential ( primary) hypertension I10 and Chronic obstructive pulmonary disease, unspecified COPD type J44.9 [facility] [id number] [place] [address] [id number] Jun, Dental caries K02.9 [id number] [place] [address] [id number] May, Cough R05 ; Chronic obstructive pulmonary disease, unspecified COPD type J44.9 ; Shortness of breath R06.02 ; Obesity, unspecified E66.9 ; Body mass index (BMI) of 40.0-44.9 in adult Z68.41 and Encounter for immunization Z23 [facility] [id number] [place] [address] [id number] May, Dental examination Z01.20 [address] [place] [address] [id number] May, Essential hypertension I10 [facility] [id number] [place] [address] [id number] Apr, Anemia of renal disease D63.1 ; Type 2 diabetes mellitus with other diabetic kidney complication E11.29 ; Vitamin D deficiency, unspecified E55.9 and Chronic renal disease, unspecified stage N18.9 [facility] [address] [address] Mar, [facility] [address] [id number] Mar, Type 2 diabetes mellitus with other diabetic kidney complication E11.29 ; Essential hypertension I10 ; Chronic renal disease, unspecified stage N18.9 and Chronic obstructive pulmonary disease with acute exacerbation J44.1 [facility] [id number] [id number] Feb, [id number] [place] [address] [id number] Feb, Chronic renal disease, unspecified stage N18.9 ; Essential (primary) hypertension I10 and Type 2 diabetes mellitus with other diabetic kidney complication E11.29 [facility] [address] [place] [address] [id number] Feb, Type 2 diabetes mellitus with other diabetic kidney complication E11.29 ; Chronic kidney disease, stage IV (severe) N18.4 ; Renal osteodystrophy N25.0 ; Anemia of renal disease D63.1 and Essential (primary) hypertension I10 [facility] [id number], [place] [id number] December, [address] [place] [address] [id number] December, Chronic obstructive pulmonary disease with acute exacerbation J44.1 ; Essential (primary) hypertension I10 ; Low back pain M54.5 and Right knee pain M25.561 [facility] [address] [id number] Nov, Chronic renal disease, unspecified stage N18.9 ; Essential hypertension I10 ; Type 2 diabetes mellitus with other diabetic kidney complication E11.29 and Chronic obstructive pulmonary disease with acute exacerbation J44.1 [facility] [address] [id number] [id number] Nov, Chronic renal disease, unspecified stage N18.9 ; Hyperlipidemia, unspecified E78.5 and Essential hypertension I10 [id number] [id number] Oct, Chronic bronchitis, unspecified chronic bronchitis type J42 and Type 2 diabetes mellitus with diabetic nephropathy E11.21 [address] [place] [address] [id number] Sep, Chronic bronchitis, unspecified chronic bronchitis type J42 ; Essential ( primary) hypertension I10 and Type 2 diabetes mellitus with other diabetic kidney complication E11.29 [address] [place] [address] [id number] Sep, Chronic obstructive pulmonary disease with acute exacerbation J44.1 [id number] [place] [address] [id number] Aug, Type 2 diabetes mellitus with diabetic nephropathy E11.21 ; Chronic kidney disease, stage IV (severe) N18.4 ; Essential (primary) hypertension I10 and Encounter for immunization Z23 [address] [place] [address] [id number] Aug, Chronic kidney disease, stage IV (severe) N18.4 ; Type 2 diabetes mellitus with diabetic nephropathy E11.21 and Type 2 diabetes mellitus with hyperglycemia E11.65 [address] [place] [address] [id number] May, Anemia of renal disease D63.1 ; Essential (primary) hypertension I10 ; Renal osteodystrophy N25.0 ; Proteinuria R80.9 ; Chronic kidney disease, stage IV (severe) N18.4 and Type 2 diabetes mellitus with other diabetic kidney complication E11.29 [address] [id number] Mar, Type 2 diabetes mellitus with other diabetic kidney complication E11.29 ; Essential hypertension I10 ; Chronic renal disease, unspecified stage N18.9 and TMJ (temporomandibular joint disorder) M26.60 [address] [place] [address] [id number] Jan, Chronic kidney disease, stage IV (severe) N18.4 and Hyperlipidemia, unspecified E78.5 [address] [place] [address] [id number] December, Type 2 diabetes mellitus with other diabetic kidney complication E11.29 ; Abscess L02.91 and Chronic kidney disease, stage IV (severe) N18.4 [facility] [id number], [place] [id number] December, Abscess L02.91 [facility] [address] [place] [address] [id number] December, [facility] [address] [place] [address] [id number] Oct, Renal osteodystrophy N25.0 ; Chronic kidney disease, stage IV (severe) N18.4 and Vitamin D deficiency E55.9 [facility] [address] [place] [address] [id number] Oct, [address] [place] [address] [id number] Sep, Type 2 diabetes mellitus with other diabetic kidney complication E11.29 ; Essential hypertension I10 and Chronic airway obstruction, not elsewhere classified J44.9 [facility] [id number], [place] [id number] Sep, [address] [place] [address] [id number] Aug, [address] [id number] Jul, [id number] [id number] Jul, [address] [place] [address] [id number] Jul, Chronic kidney disease, stage IV (severe) N18.4 ; Renal osteodystrophy N25.0 and Proteinuria R80.9 [facility] [id number] [address] Jul, [facility] [address] [id number] [id number] Jun, [facility] [address] [id number] [id number] Jun, [address] [id number] [id number] Jun, Diabetes with renal manifestations, type II or unspecified type, uncontrolled 250.42 and Right knee pain M25.561 [facility] [id number] [address]- [address] May, [address] [place] [address] [id number] May, Abscess L02.91 ; Encounter for immunization Z23 and Sprain of right knee, unspecified ligament, initial encounter S83.91XA [address] [place] [address] [id number] May, Abscess L02.[id number] [place] [address] [id number] May, [address] [place] [address] [id number] Apr, Diabetes with renal manifestations, type II or unspecified type, uncontrolled 250.42 and PPV23 (PNEUMOVAX) DX V03.82 [address] [place] [address] [id number] Mar, [address] [place] [address] [id number] Mar, Proteinuria 791.0 ; Renal osteodystrophy 588.0 ; Chronic kidney disease, Stage IV (severe) 585.4 ; Benign essential hypertension 401.1 and Vitamin D deficiency 268.9 [address] [place] [address] [id number] Feb, Avulsion fracture of ankle 824.8 [address] [place] [address] [id number] Feb, [address] [place] [address] [id number] Feb, [id number] [place] [address] [id number] Feb, Diabetes with renal manifestations, type II or unspecified type, uncontrolled 250.42 [address] [id number] Jan, Diabetes with renal manifestations, type II or unspecified type, uncontrolled 250.42 [facility] [place] [id number] [place] [address] [id number] December, Diabetes with renal manifestations, type II or unspecified type, uncontrolled 250.42 and Unspecified essential hypertension 401.9 [facility] [place] [id number] [place] [address] [id number] December, [facility] [id number] [place] [address] [id number] December, [facility] [id number] [place] [address] [id number] December, Essential hypertension 401.9 [facility] [id number] [place] [address] [id number] Nov, Essential hypertension 401.9 [facility] [place] [id number] [place] [address] [id number] Nov, [facility] [id number] [place] [address] [id number] Nov, [facility] [id number] [place] [address] [id number] Nov, [facility] [id number] [place] [address] 04664- 2546 Nov, [facility] [id number] [place] [address] 02467- 2546 Nov, [facility] [id number] [place] [address] [id number] Oct, [facility] [place] [facility] [id number] [place] [address] 24478- 2546 Oct, [facility] [id number] [place] [address] [id number] Oct, [facility] [place] [facility] [id number] [place] [address] 81568- 2546 Oct, [facility] [place] [facility] [id number] [place] [address] 22418- 2106 Oct, [facility] [address] [id number] [id number] Oct, [facility] [address] [facility] [id number] [place] [id number] Oct, [facility] [place] [facility] [address] [facility] [id number][place] [address]- 2546 Oct, [facility] [place] [facility] [address]005[address] [address]- 8866 Sep, [facility] [address] [id number] [place] [id number] Sep, [facility] [address] [id number] [place] [id number] Sep, [facility] [place] [facility] [address], [place] [address]- 8080 Sep, [facility] [id number], [place] [id number] Aug, [facility] [place] [facility] [address], [place] [address]- 1376 Aug, [facility] [address] [facility] [id number], [place] [id number] Aug, [facility] [place] [facility] [address]005[address], [place] [address]- 6611 Aug, [facility] [address] [facility] [id number], [place] [id number] Aug, [facility] [place] [facility] [address], [place] [address]- 8089 Aug, [facility] [place] [facility] [address] [facility] [id number], [place] [address]- 5127 Aug, [facility] [address] [facility] [id number], [place] [id number] Aug, [facility] [place] [facility] [address] [id number] [address]- 7938 Jul, [facility] [place] [facility] [address], [place] [address]- 4566 Jul, [facility] [address] [id number] [place] [id number] Jul, [facility] [place] [facility] [address] [id number] [place] [address]- 6416 Jul, [facility] [address] [id number] [place] [id number] Jul, [facility] [place] [facility] [address] [id number] [place] [address]- 3596 Jul, [facility] [address] [id number] [place] [id number] Jul, [facility] [place] [facility] [address] [facility] [id number] [place] [address]- 4766 Jul, [facility] [place] [facility] [address] [facility] [id number], [place] [address]- 5866 May, [facility] [address] [id number], [place] [id number] May, [facility] [address] [id number], [place] [id number] May, [facility] [place] [facility] [address] [facility] [id number], [place] [address]- 9586 May, [facility] [address] [facility] [id number], [place] [id number] Apr, [facility] [place] [facility] [address] [facility] [id number], [place] [address]- 3386 Apr, [facility] [address] [facility] [id number], [place] [id number] Mar, [facility] [place] [facility] [address] [facility] [id number] [place] [address]- 0616 Mar, [facility] [place] [facility] [address] [facility] [id number], [place] [address]- 4276 Mar, [facility] [place] [facility] [address] [facility] [id number], [place] [address]- 5676 Mar, [facility] [address] [id number], [place] [id number] Mar, [facility] [address] [id number] [place] [id number] Feb, [facility] [place] [facility] [address] [id number] [place] [address]- 7226 Feb, [facility] [address] [id number] [place] [id number] Jan, [facility] [place] [facility] [address] [id number] [place] [address]- 3236 Jan, [facility] [place] [facility] [address] [id number] [place] [address]- 7648 Jan, [facility] [address] [id number] [place] [id number] Jan, [facility] [address] [id number] [place] [id number] Jan, [facility] [place] [facility] [address] [facility] [id number] [place] [address]- 5186 Jan, [facility] [address] [id number] [place] [id number] December, [facility] [place] [facility] [address] [facility] [id number] [place] [address]- 7246 December, [facility] [place] [facility] [address] [facility] [id number] [place] [address]- 3879 Nov, [facility] [place] [facility] [address] [facility] [id number] [place] [address]- 1016 Nov, [facility] [address] [id number] [place] [id number] Nov, [facility] [place] [facility] [address] [id number] [place] [address]- 7796 Nov, [facility] [address] [id number] [place] [id number] Oct, [facility] [place] [facility] [address] [id number] [place] [address]- 0146 Oct, [facility] [address] [id number] [place] [id number] Oct, [facility] [address] [id number], [place] [address]- 3976 Oct, [facility] [address] [id number], [place] [id number] Oct, [facility] [address] [facility] [id number] [address]- 9560 Oct, [facility] [address] [id number] [place] [id number] Oct, [facility] [place] [facility] [address] [facility] [id number][place] [address]- 6772 Oct, [facility] [address] [facility] [id number], [place] [id number] Aug, [facility] [place] [facility] [address] [address]- 8824 Aug, [facility] [address] [facility] [id number], [place] [id number] Jul, [facility] [place] [facility] [address] [id number], [place] [address]- 3611 Jul, [facility] [address] [id number], [place] [id number] Jun, [facility] [place] [facility] [address] [id number], [place] [address]- 9005 Jun, [facility] [facility] [address] [facility] [id number], [place] [address]- 3153 Jun, [facility] [address] [facility] [id number], [place] [id number] Jun, [facility] [address] [facility] [id number], [place] [id number] May, [facility] [facility] [address] [facility] [id number], [place] [address]- 3063 May, [facility] [address] [facility] [id number][place] [address]- 3119 May, [facility] [address] [id number] [place] [id number] May, [facility] [address] [facility] [id number][place] [address]- 2646 May, [facility] [address] [id number] [place] [id number] May, [facility] [address] [facility] [id number], [place] [address]- 8778 May, [facility] [address] [id number], [place] [id number] May, [facility] [address] [facility] [id number], [place] [address]- 9281 Apr, [facility] [address] [facility] [id number], [place] [address]- 9368 Apr, [facility] [address] [facility] [id number], [place] [id number] Apr, [facility] [address] [facility] [id number], [place] [address]- 7056 Apr, [facility] [address] [facility] [id number], [place] 683974- 1509 Mar, [facility] [address] [id number], [place] [id number] Mar, [facility] [address] [id number], [place] [id number] Feb, [facility] [address] [id number], [place] [id number] Feb, [facility] [address] [id number] [place] [id number] Feb, [facility] [address] [id number] [place] [id number] Jan, [facility] [address] [facility] [id number], [place] [address]- 7254 Jan, [facility] [address] [id number] [place] [id number] Jan, [facility] [address] [id number] [place] [id number] December, [facility] [address] [id number][place] [address]- 2546 December, [facility] [address] [id number] [place] [id number] December, [facility] [address] [id number] [place] [id number] December, [facility] [address] [id number] [place] [id number] Nov, [facility] [address] [id number] [place] [id number] Nov, [facility] [address] [facility] [id number], [place] [address]- 2546 Nov, [facility] [address] [id number] [place] [id number] Nov, [facility] [address] [id number] [place] [id number] Oct, [facility] [address] [id number] [place] [id number] Oct, [facility] [address] [id number] [place] [id number] Oct, [facility] [address] [id number] [place] [id number] Oct, [facility] [address] [id number] [place] [id number] Sep, [facility] [address] [id number] [place] [id number] Sep, [facility] [address] [facility] [id number], [place] [address] Aug, [facility] [address] [facility] [id number], [place] [address] Aug, [facility] [address] [id number] [place] [id number] Aug, [facility] [address] [id number] [id number] Aug, [facility] [address] [id number] [place] [id number] Jul, [facility] [address] [id number] [place] [id number] Jul, [facility] [address] [facility] [id number], [place] [address] Jul, [facility] [address] [facility] [id number], [place] [address] Jul, [facility] [address] [id number] [place] [id number] Jul, [facility] [address] [id number] [address] Jul, [facility] [address] [facility] [id number][place] [id number] Jul, [facility] [address] [facility] [id number], [place] [address] Jul, [facility] [address] [facility] [id number], [place] [address] Jul, [facility] [address] [id number][place] [id number] Jul, [facility] [address] [facility] [id number][place] [id number] Jul, [facility] [address] [facility] [id number], [place] [address] Jul, [facility] [address] [facility] [id number][place] [id number] Jun, [facility] [place] [facility] [address] [facility] [id number] [address] Jun, [facility] [place] [facility] [address] [facility] [id number], [place] [address] Jun, [facility] [place] [address] [facility] [id number][place] [id number] Jun, [facility] [place] [facility] [address] [facility] [id number], [place] [address] Jun, [facility] [place] [facility] [address] [facility] [id number], [place] [address] Jun, [facility] [place] [address] [id number][place] [id number] Jun, [facility] [place] [facility] [address] [facility] [id number], [place] [address]73[place] [address] Jun, [facility] [place] [address] [id number][place] [id number] Jun, [facility] [place] [facility] [address] [facility] [id number], [place] [address] [address] Jun, [facility] [place] [address] [id number][place] [id number] May, [facility] [address] [facility] [id number], [place] [address] Apr, [facility] [address] [address] Apr, [facility] [place] [address] [id number], [place] [id number] Apr, [facility] [place] [address] [id number], [place] [id number] Apr, [facility] [place] [address] [id number], [place] [id number] Apr, [facility] [place] [address] [id number][place] [id number] Apr, [facility] [place] [address] [id number], [place] [id number] Apr, [facility] [place] [address] [id number], [place] [id number] Mar, [facility] [place] [address] [id number], [place] [id number] Mar, [facility] [place] [address] [id number], [place] [id number] Mar, [facility] [place] [address] [id number], [place] [id number] Mar, [facility] [place] [address] [id number], [place] [id number] Mar, [facility] [place] [address] [id number] [place] [id number] Mar, [facility] [place] [address] [id number] [place] [id number] Mar, [facility] [place] [address] [id number] [place] [id number] Feb, [facility] [place] [address] [id number] [place] [id number] Feb, [facility] [place] [address] [id number] [place] [id number] Jan, [facility] [place] [address] [id number] [place] [id number] Jan, [facility] [place] [address] [id number] [place] [id number] Jan, [facility] [place] [address] [id number] [place] [id number] Jan, [facility] [place] [address] [id number] [place] [address] Jan, [facility] [place] [address] [id number] [place] [id number] Jan, [facility] [address] [id number] [place] [id number] December, [facility] [place] [address] [id number] [place] [id number] Nov, [facility] [place] [address] [id number] [place] [id number] Oct, [facility] [place] [address] [id number] [place] [id number] Oct, [facility] [place] [address] [id number] [place] [id number] Oct, [facility] [address] [facility] [id number] [place] [address] Oct, [facility] [place] [address] [id number] [place] [id number] Oct, [facility] [place] [address] [id number] [place] [address]45[address] Oct, [facility] [place] [address] [id number] [place] [id number] Oct, [facility] [place] [address] [id number] [place] [id number] Oct, [facility] [place] [address] [id number] [place] [id number] Oct, [facility] [place] [address] [id number] [place] [id number] Oct, [facility] [place] [address] [id number] [place] [address] Sep, [facility] [address] [facility] [id number], [place] [address] Sep, [facility] [place] [address] [id number] [place] [id number] Sep, [facility] [place] [address] [id number] [place] [id number] Aug, [facility] [place] [address] [id number] [place] [id number] Aug, [facility] [place] [address] [id number] [place] [id number] Aug, [facility] [id number], [place] [address] Aug, [facility] [place] [facility] [id number], [place] [address] Jul, [facility] [place] [facility] [id number], [place] [address] Jul, [facility] [place] [facility] [id number], [place] [address] Jul, [facility] [place] [facility] [address] [id number], [place] [address] Jul, [facility] [place] [facility] [id number], [place] [address] Jun, [facility] [place] [facility] [id number], [place] [address] Jun, [facility] [place] [facility] [address] [id number] [place] [address] May, [facility] [place] [facility] [address] [id number] [place] [address]- [address]106 May, [facility] [place] [facility] [address] [id number] [place] [address] December, [facility] [place] [facility] [address] [id number] [place] [address] December, [facility] [place] [facility] [address] [id number] [place] [address]- [address] Aug, [facility] [place] [facility] [address] [id number] [place] [address]- [address] Jul, [facility] [place] [facility] [address] [id number] [place] [address]- [address] Jul, [facility] [place] [facility] [address] [id number] [place] [address]- 3968 Jul, [facility] [place] [facility] [address] [id number] [place] [address]- 3784 Jul, [facility] [place] [facility] [address] [id number] [place] [address]- [address]5 Jul, [facility] [place] [facility] [address] [id number] [place] [address]- 2492 Jul, [facility] [place] [facility] [address] [id number] [place] [address]- [address] 30 Jun, 2010 [facility] [place] [facility] [address] [id number] [place] [address] 2540 Jun, [facility] [place] [facility] [address] [id number] [place] [address]- [address]47 29 Jun, 2010 [facility] [place] [facility] [address] [id number] [place] [address] Jun, [facility] [place] [facility] [address] [id number], [place] [address] Jun, [facility] [id number], [place] [address] May, [facility] [id number], [place] [address] December, [facility] [id number], [place] [address] December, [facility] [id number], [place] [address] Oct, [facility] [id number] [place] [address]- [address] Jul, [facility] [id number] [place] [address]- [address] Jul, [facility] [id number] [place] [address]- [address] Jul, [facility] [id number], [place] [address] Jun, [facility] [id number], [place] [address] May, [facility] [address] [id number], [place] [address] Jun, IMMUNIZATIONS No Known Immunizations SOCIAL HISTORY Never Assessed REASON FOR VISIT med refill PLAN OF CARE VITAL SIGNS MEDICATIONS Medication Instructions Dosage Frequency Start Date End Date Duration Status Levemir 100 UNIT/ML Subcutaneous 2 times a day 68 un am 64 units 12h Sep 0 days Active RESULTS No Results PROCEDURES No [...] 03/17/18 Hospitalization History surgeries, childbirth Hospitalization History [facility] N/V/D 05/2015 Hospitalization History [facility] influenza 08/2017 Hospitalization History CHF exacerbation 08/2017
--- OUTSIDE RECORDS SUMMARY | 2018-07-11 11:14 | XMS REPORT ---
Author Author JOSEP GONG [facility] Address [address] [place] [address] Care Team Providers Care Location Director Name Role Phone JOSEP GONG Unavailable PROBLEMS Type Condition ICD9-CM Code SFI63-HI Code Onset Dates Condition Status SNOMED Code Problem Chronic bronchitis, unspecified chronic bronchitis type J42 Active 77755330 Problem Vitamin D deficiency, unspecified E55.9 Active 61193972 Problem Chronic obstructive pulmonary disease with acute exacerbation J44.1 Active 440061187 Problem Gastric reflux K21.9 Active 897018256 Problem Right knee pain M25.561 Active 15146216 Problem Paroxysmal atrial fibrillation I48.0 Active 889329275 Problem Sprain of right knee, unspecified ligament, initial encounter S83.91XA Active 20113928 Problem Abscess L02.91 Active 356187289 Problem Obesity, unspecified E66.9 Active 93799357391516 Problem Chronic obstructive pulmonary disease, unspecified COPD type J44.9 Active 33691536 Problem Chronic congestive heart failure, unspecified heart failure type I50.9 Active 55797729 Problem Body mass index (BMI) of 40.0-44.9 in adult Z68.41 Active 059133735 Problem Hyperlipidemia, unspecified E78.5 Active 16489232 Problem Chronic renal disease, unspecified stage N18.9 Active 384375217 Problem Type 2 diabetes mellitus with other diabetic kidney complication E11.29 Active 462955941 Problem Essential hypertension I10 Active 00894245 Problem Proteinuria R80.9 Active 84546901 Problem Renal osteodystrophy N25.0 Active 32628798 Problem Chronic kidney disease, stage IV (severe) N18.4 Active 523451911 Problem Essential (primary) hypertension I10 Active 39234982 Problem Venous (peripheral) insufficiency I87.2 Active 20257992 Problem Anemia of renal disease D63.1 Active 605858259 Problem Type 2 diabetes mellitus with diabetic nephropathy E11.21 Active 562822793 ALLERGIES Substance Reaction Event Type Date Status Percocet rash Drug Allergy Jan, Active Nubain rash Drug Allergy Jan, Active Lyrica anaphylaxis Drug Allergy Jan, Active Januvia rash Drug Allergy Jan, Active Fluoxetine nausea Drug Allergy Jan, Active Bexarotene rash Drug Allergy Jan, Active IV dye hives Non Drug Allergy Jan, Active ENCOUNTERS Encounter Location Date Diagnosis [id number] [place] [address] [id number] Apr, [place] [id number] [place] [address] [id number] Mar, Type 2 diabetes mellitus with diabetic nephropathy E11.21 and Gastric reflux K21.[address] [id number] Mar, Type 2 diabetes mellitus with diabetic nephropathy E11.21 ; Gastric reflux K21.9 and Chronic kidney disease, stage IV (severe) N18.[address] [place] [address] [id number] Feb, [place] [id number] [place] [address] [id number] Feb, Type 2 diabetes mellitus with other diabetic kidney complication E11.29 [place] [id number] [place] [address] [id number] Jan, Body mass index (BMI) 70 or greater, adult Z68.45 and Type 2 diabetes mellitus with other diabetic kidney complication E11.29 [address] [place] [address] [id number] Nov, Body mass index (BMI) 70 or greater, adult Z68.45 ; Chronic obstructive pulmonary disease, unspecified COPD type J44.9 ; Chronic kidney disease, stage IV (severe) N18.4 and Gastric reflux K21.9 [place] [id number] [place] [address] [id number] Oct, Body mass index (BMI) 70 or greater, adult Z68.45 ; Type 2 diabetes mellitus with other diabetic kidney complication E11.29 ; Chronic obstructive pulmonary disease with acute exacerbation J44.1 and Paroxysmal atrial fibrillation I48.0 [place] [id number] [place] [address] [id number] Oct, [facility] [address] [place] [address] [id number] Oct, Type 2 diabetes mellitus with diabetic nephropathy E11.21 ; Chronic renal disease, unspecified stage N18.9 ; Chronic congestive heart failure, unspecified heart failure type I50.9 and Chronic obstructive pulmonary disease with acute exacerbation J44.1 [facility] [id number] [place] [address] [id number] Sep, [facility] [id number] [place] [address] [id number] Sep, [facility] [id number] [place] [address] [id number] Sep, [facility] [address] [address] Sep, Type 2 diabetes mellitus with diabetic nephropathy E11.21 [place] [id number] [place] [address] [id number] Aug, Influenza J11.1 and Essential (primary) hypertension I10 [facility] [address] [address] Aug, [place] [id number] [place] [address] [id number] Jul, Type 2 diabetes mellitus with diabetic nephropathy E11.21 ; Essential ( primary) hypertension I10 and Chronic obstructive pulmonary disease, unspecified COPD type J44.9 [facility] [id number] [place] [address] [id number] Jun, Dental caries K02.9 [facility] [id number] [place] [address] [id number] May, Cough R05 ; Chronic obstructive pulmonary disease, unspecified COPD type J44.9 ; Shortness of breath R06.02 ; Obesity, unspecified E66.9 ; Body mass index (BMI) of 40.0-44.9 in adult Z68.41 and Encounter for immunization Z23 [facility] [address] [id number] May, Dental examination Z01.20 [facility] [address] [id number] [address] May, Essential hypertension I10 [address] [place] [address] [id number] Apr, Anemia of renal disease D63.1 ; Type 2 diabetes mellitus with other diabetic kidney complication E11.29 ; Vitamin D deficiency, unspecified E55.9 and Chronic renal disease, unspecified stage N18.9 [facility] [address] [address] Mar, [address] [place] [address] [id number] Mar, Type 2 diabetes mellitus with other diabetic kidney complication E11.29 ; Essential hypertension I10 ; Chronic renal disease, unspecified stage N18.9 and Chronic obstructive pulmonary disease with acute exacerbation J44.1 [address] [id number] Feb, [address] [place] [address] [id number] Feb, Chronic renal disease, unspecified stage N18.9 ; Essential (primary) hypertension I10 and Type 2 diabetes mellitus with other diabetic kidney complication E11.29 [facility] [address] [address] Feb, Type 2 diabetes mellitus with other diabetic kidney complication E11.29 ; Chronic kidney disease, stage IV (severe) N18.4 ; Renal osteodystrophy N25.0 ; Anemia of renal disease D63.1 and Essential (primary) hypertension I10 [facility] [address] [place] [address] [id number] [address] December, [address] [id number] December, Chronic obstructive pulmonary disease with acute exacerbation J44.1 ; Essential (primary) hypertension I10 ; Low back pain M54.5 and Right knee pain M25.561 [address] [id number] Nov, Chronic renal disease, unspecified stage N18.9 ; Essential hypertension I10 ; Type 2 diabetes mellitus with other diabetic kidney complication E11.29 and Chronic obstructive pulmonary disease with acute exacerbation J44.1 [address] [place] [address] [id number] Nov, Chronic renal disease, unspecified stage N18.9 ; Hyperlipidemia, unspecified E78.5 and Essential hypertension I10 [place] [id number] [place] [address] [id number] Oct, Chronic bronchitis, unspecified chronic bronchitis type J42 and Type 2 diabetes mellitus with diabetic nephropathy E11.21 [address] [place] [address] [id number] Sep, Chronic bronchitis, unspecified chronic bronchitis type J42 ; Essential ( primary) hypertension I10 and Type 2 diabetes mellitus with other diabetic kidney complication E11.29 [address] [place] [address] [id number] Sep, Chronic obstructive pulmonary disease with acute exacerbation J44.1 [place] [id number] [place] [address] [id number] Aug, Type 2 diabetes mellitus with diabetic nephropathy E11.21 ; Chronic kidney disease, stage IV (severe) N18.4 ; Essential (primary) hypertension I10 and Encounter for immunization Z23 [address] [place] [address] [id number] Aug, Chronic kidney disease, stage IV (severe) N18.4 ; Type 2 diabetes mellitus with diabetic nephropathy E11.21 and Type 2 diabetes mellitus with hyperglycemia E11.65 [address] [place] [address] [id number] May, Anemia of renal disease D63.1 ; Essential (primary) hypertension I10 ; Renal osteodystrophy N25.0 ; Proteinuria R80.9 ; Chronic kidney disease, stage IV (severe) N18.4 and Type 2 diabetes mellitus with other diabetic kidney complication E11.29 [address] [place] [address] [id number] Mar, Type 2 diabetes mellitus with other diabetic kidney complication E11.29 ; Essential hypertension I10 ; Chronic renal disease, unspecified stage N18.9 and TMJ (temporomandibular joint disorder) M26.60 [facility] [id number] [place] [address] [id number] Jan, Chronic kidney disease, stage IV (severe) N18.4 and Hyperlipidemia, unspecified E78.5 [facility] [address] [address] [id number] [id number] December, Type 2 diabetes mellitus with other diabetic kidney complication E11.29 ; Abscess L02.91 and Chronic kidney disease, stage IV (severe) N18.4 [facility] [id number] [place] [address] [id number] December, Abscess L02.91 [place] [id number] [place] [address] [id number] December, [facility] [id number] [place] [address] [id number] Oct, Renal osteodystrophy N25.0 ; Chronic kidney disease, stage IV (severe) N18.4 and Vitamin D deficiency E55.9 [facility] [id number] [place] [address] [id number] Oct, [place] [address] [place] [address] [id number] Sep, Type 2 diabetes mellitus with other diabetic kidney complication E11.29 ; Essential hypertension I10 and Chronic airway obstruction, not elsewhere classified J44.9 [facility] [address] [place] [address] [id number] Sep, [address] [place] [address] [id number] Aug, [facility] [address] [id number] Jul, [place] [id number] [place] [address] [id number] Jul, [facility] [id number] [place] [address] [id number] Jul, Chronic kidney disease, stage IV (severe) N18.4 ; Renal osteodystrophy N25.0 and Proteinuria R80.9 [facility] [id number] [address] Jul, [facility] [address] [facility] [id number][place] [id number] Jun, [facility] [address] [facility] [address] [id number][place] [id number] Jun, [address] [place] [address] [id number] Jun, Diabetes with renal manifestations, type II or unspecified type, uncontrolled 250.42 and Right knee pain M25.561 [facility] [address] [place] [address] May, [place] [address] [place] [address] [id number] May, Encounter for immunization Z23 ; Abscess L02.91 and Sprain of right knee, unspecified ligament, initial encounter S83.91XA [place] [address] [place] [address] [id number] May, Abscess L02.91 [facility] [address] [facility] [id number][place] [id number] May, [place] [address] [place] [address] [id number] Apr, Diabetes with renal manifestations, type II or unspecified type, uncontrolled 250.42 and PPV23 (PNEUMOVAX) DX V03.82 [place] [address] [place] [address] [id number] Mar, [place] [address] [place] [address] [id number] Mar, Proteinuria 791.0 ; Renal osteodystrophy 588.0 ; Chronic kidney disease, Stage IV (severe) 585.4 ; Benign essential hypertension 401.1 and Vitamin D deficiency 268.9 [place] [id number] [place] [address] [id number] Feb, Avulsion fracture of ankle 824.8 [place] [address] [place] [address] [id number] Feb, [facility] [address] [id number][place] [id number] Feb, [facility] [address] [id number][place] [id number] Feb, Diabetes with renal manifestations, type II or unspecified type, uncontrolled 250.42 [facility] [id number] [place] [id number] Jan, Diabetes with renal manifestations, type II or unspecified type, uncontrolled 250.42 [facility] [address] [id number] [place] [id number] December, Diabetes with renal manifestations, type II or unspecified type, uncontrolled 250.42 and Unspecified essential hypertension 401.9 [facility] [address] [id number] [place] [id number] December, [facility] [id number], [place] [id number] December, [facility] [id number][place] [id number] December, Essential hypertension 401.9 [facility] [id number], [place] [id number] Nov, Essential hypertension 401.9 [facility] [address] [id number][place] [id number] Nov, [facility] [id number], [place] [id number] Nov, [facility] [id number], [place] [id number] Nov, [facility] [address]00565100[place] [address] Nov, [facility] [place] [facility] [id number] [place] [address] 2546 Nov, [facility] [id number], [place] [id number] Oct, [facility] [place] [facility] [address] [id number] [address]- [address] Oct, [facility] [address] [id number] [id number] Oct, [facility] [place] [facility] [address] [facility] [id number] [address]- [address] Oct, [facility] [place] [facility] [address] [facility] [id number] [address]- 9[address] Oct, [facility] [address] [id number], [place] [id number] Oct, [facility] [address] [id number], [place] [id number] Oct, [facility] [place] [facility] [address] [facility] [id number] [address]- 289[address] Oct, [facility] [place] [facility] [address] [id number] [address]- [address] Sep, [facility] [address] [facility] [id number], [place] [id number] Sep, [facility] [address] [facility] [id number], [place] [id number] Sep, [facility] [place] [facility] [address]00565100[place] [address]- 267[address] Sep, [facility] [address] [facility] [id number], [place] [id number] Aug, [facility] [address] [facility] [id number] [address]- 0[address] Aug, [facility] [address] [facility] [id number], [place] [id number] Aug, [facility] [address] [facility] [id number] [address]- 14[address] Aug, [facility] [address] [facility] [id number], [place] [id number] Aug, [facility] [address] [facility] [id number] [address]4920654- 8944 Aug, [facility] [address] [id number], [place] [address]- 4[address] Aug, [facility] [address] [id number], [place] [address]30[address] Aug, [facility] [place] [facility] [address] [facility] [id number], [place] [address]- 1046 Jul, [facility] [address] [facility] [id number] [address]- 69[address] Jul, [facility] [address] [facility] [id number], [place] 800078699 Jul, [facility] [address] [facility] [id number] [address]- 9[address] Jul, [facility] [address] [facility] [id number], [place] [id number] Jul, [facility] [address] [facility] [id number] [address]- 6[address] Jul, [facility] [address] [facility] [id number][place] [id number] Jul, [facility] [facility] [address] [facility] [id number] [address]- 7726 Jul, [facility] [address] [facility] [id number] [address]- 0186 May, [facility] [address] [facility] [id number], [place] [id number] May, [facility] [address] [facility] [id number], [place] [id number] May, [facility] [address] [facility] [id number] [address]- 8[address] May, [facility] [address] [facility] [id number], [place] [id number] Apr, [facility] [facility] [address] [facility] [id number] [address]- 2[address] Apr, [facility] [address] [facility] [id number], [place] [id number] Mar, [facility] [place] [facility] [address] [facility] [id number] [address]- 9[address] Mar, [facility] [place] [facility] [address] [id number] [place] [address]- 5863 Mar, [facility] [place] [facility] [address] [id number] [place] [address]- 6626 Mar, [facility] [address] [id number] [place] [address] Mar, [facility] [address] [id number] [place] [id number] Feb, [facility] [place] [facility] [address] [id number] [place] [address]- 3[address] Feb, [facility] [address] [id number] [place] [id number] Jan, [facility] [place] [facility] [address] [facility] [id number] [place] [address]- 3326 Jan, [facility] [place] [facility] [address] [facility] [id number] [place] [address]- 1969 Jan, [facility] [address] [id number] [place] [id number] Jan, [facility] [address] [id number] [place] [id number] Jan, [facility] [place] [facility] [address] [facility] [id number] [address]- 3[address] Jan, [facility] [address] [id number] [place] [id number] December, [facility] [place] [facility] [address] [facility] [id number], [place] [address]- 1596 December, [facility] [place] [facility] [address] [facility] [id number] [place] [address]- 6909 Nov, [facility] [place] [facility] [address] [facility] [id number] [address]- 5[address] Nov, [facility] [address] [id number] [place] [id number] Nov, [facility] [place] [facility] [address] [facility] [id number] [address]- [address] Nov, [facility] [address] [id number] [place] [id number] Oct, [facility] [place] [facility] [address] [facility] [id number], [place] [address]- 60[address] Oct, [facility] [address] [id number] [place] [id number] Oct, [facility] [place] [facility] [address] [facility] [id number] [address]- 0[address] Oct, [facility] [address] [id number] [place] [id number] Oct, [facility] [place] [facility] [address] [facility] [id number] [address]- 5256 Oct, [facility] [address] [id number], [place] 736218057 Oct, [facility] [facility] [address] [facility] [id number], [place] [address]- 6548 Oct, [facility] [address] [id number], [place] 933385282 Aug, [facility] [place] [facility] [address] [facility] [id number] [address]- 68[address] Aug, [facility] [address] [id number], [place] 648948383 Jul, [facility] [place] [facility] [address] [facility] [id number] [address]- 9736 Jul, [facility] [address] [id number], [place] 086676816 Jun, [facility] [facility] [address] [facility] [id number] [address]- 8977 Jun, [facility] [address] [facility] [id number] [address]- 9376 Jun, [facility] [address] [id number], [place] 048486111 Jun, [facility] [address] [id number], [place] [id number] May, [facility] [address] [facility] [id number], [place] [address]- 5290 May, [facility] [address] [facility] [id number], [place] [address]- 1586 May, [facility] [address] [id number], [place] 691164408 May, [facility] [address] [facility] [id number] [address]- 5766 May, [facility] [address] [id number], [place] 911201879 May, [facility] [address] [facility] [id number] [address]- 2676 May, [facility] [address] [facility] [id number], [place] [id number] May, [facility] [address]00565100[place] [address]- 5207 Apr, [facility] [address] [facility] [id number], [place] [address]- 6156 Apr, [facility] [address] [facility] [id number], [place] 849179321 Apr, [facility] [facility] [address] [facility] [id number], [place] [address]- 0971 Apr, [facility] [place] [facility] [address]00565100[place] [address]- 9976 Mar, [facility] [address] [id number], [place] 109939671 Mar, [facility] [address] [id number] [place] [id number] Feb, [facility] [address] [id number] [place] [id number] Feb, [facility] [address] [id number] [place] [id number] Feb, [facility] [address] [id number] [place] [id number] Jan, [facility] [address] [id number] [place] [address]- 7263 Jan, [facility] [address] [id number] [place] [id number] Jan, [facility] [address] [id number] [place] [address]261248[address] December, [facility] [address] [facility] [id number] [address] December, [facility] [address] [id number] [place] [id number] December, [facility] [address] [id number] [place] [id number] December, [facility] [address] [id number] [place] [id number] Nov, [facility] [address] [id number] [place] [id number] Nov, [facility] [address] [id number] [address] Nov, [facility] [address] [id number] [place] [id number] Nov, [facility] [address] [id number] [place] [id number] Oct, [facility] [address] [id number] [place] [id number] Oct, [facility] [address] [id number] [place] [id number] Oct, [facility] [address] [id number] [place] [id number] Oct, [facility] [address] [id number] [place] [id number] Sep, [facility] [address] [id number] [place] [id number] Sep, [facility] [id number] [address] Aug, [facility] [place] [facility] [id number] [place] [address] Aug, [facility] [address] [id number] [place] [id number] Aug, [facility] [address] [id number] [place] [id number] Aug, [facility] [address] [id number] [place] [id number] Jul, [facility] [address] [id number] [place] [id number] Jul, [facility] [place] [facility] [address] [facility] [id number] [place] [address] Jul, [facility] [place] [facility] [address] [facility] [id number], [place] [address] Jul, [facility] [address] [facility] [id number] [place] [id number] Jul, [facility] [place] [facility] [id number] [address] Jul, [facility] [address] [facility] [id number] [place] [id number] Jul, [facility] [place] [facility] [id number], [place] [address] Jul, [facility] [place] [facility] [id number], [place] [address] Jul, [facility] [address] [facility] [id number] [id number] Jul, [facility] [address] [facility] [id number] [id number] Jul, [facility] [place] [facility] [address] [facility] [id number] [address] Jul, [facility] [place] [address] [facility] [id number] [place] [id number] Jun, [facility] [place] [facility] [address] [id number] [address] Jun, [facility] [place] [facility] [address]00565100[place], [place] [address] Jun, [facility] [place] [address] [id number][place] [id number] Jun, [facility] [place] [facility] [address] [facility] [id number], [place] [address] Jun, [facility] [place] [facility] [address] [facility] [id number], [place] [address] Jun, [facility] [place] [address] [id number][place] [id number] Jun, [facility] [place] [facility] [address] [facility] [id number], [place] [address] Jun, [facility] [place] [address] [id number][place] [id number] Jun, [facility] [place] [facility] [address] [facility] [id number], [place] [address] Jun, [facility] [place] [address] [id number][place] [id number] May, [facility] [place] [facility] [address] [facility] [id number], [place] [address] Apr, [facility] [place] [facility] [address] [facility] [id number] [address] Apr, [facility] [place] [address] [id number], [place] [id number] Apr, [facility] [place] [address] [id number][place] [id number] Apr, [facility] [place] [address] [id number][place] [id number] Apr, [facility] [place] [address] [id number][place] [id number] Apr, [facility] [place] [address] [id number][place] [id number] Apr, [facility] [place] [address] [id number][place] [id number] Mar, [facility] [place] [address] [id number][place] [id number] Mar, [facility] [place] [address] [id number] [place] [id number] Mar, [facility] [place] [address] [id number] [place] [id number] Mar, [facility] [place] [address] [id number] [place] [id number] Mar, [facility] [place] [address] [id number] [place] [id number] Mar, [facility] [place] [address] [id number] [place] [id number] Mar, [facility] [place] [address] [id number] [place] [id number] Feb, [facility] [place] [address] [id number] [place] [id number] Feb, [facility] [place] [address] [id number] [place] [id number] Jan, [facility] [place] [address] [id number] [place] [id number] Jan, [facility] [place] [address] [id number] [place] [id number] Jan, [facility] [place] [address] [id number] [place] [id number] Jan, [facility] [place] [address] [id number] [place] [id number] Jan, [facility] [place] [address] [id number] [place] [id number] Jan, [facility] [place] [address] [id number] [place] [id number] December, [facility] [place] [address] [id number] [place] [id number] Nov, [facility] [place] [address] [id number] [place] [id number] Oct, [facility] [place] [address] [id number] [place] [id number] Oct, [facility] [place] [address] [id number] [place] [id number] Oct, [facility] [address] [id number], [place] [address] Oct, [facility] [place] [address] [id number] [place] [id number] Oct, [facility] [place] [address] [id number] [place] [id number] Oct, [facility] [place] [address] [id number] [place] [id number] Oct, [facility] [place] [address] [id number] [place] [id number] Oct, [facility] [place] [address] [id number] [place] [id number] Oct, [facility] [place] [address] [id number] [place] [id number] Oct, [facility] [place] [address] [id number] [place] [id number] 14 Sep, 2011 [facility] [address] [facility] [id number] [address] Sep, [facility] [place] [address] [id number] [place] [id number] Sep, [facility] [place] [address] [id number] [place] [id number] Aug, [facility] [place] [address] [id number] [place] [id number] Aug, [facility] [place] [address] [id number] [place] [id number] Aug, [facility] [address]00565100[place], [place] [address] Aug, [facility] [address] [facility] [id number] [address] [address] Jul, [facility] [address] [facility] [id number], [place] [address] [address] Jul, [facility] [address] [id number], [place] [address] Jul, [facility] [address] [id number] [place] [address] 05 Jul, 2011 [facility] [address] [id number] [place] [address] 17 Jun, 2011 [facility] [address] [id number] [place] [address] Jun, [facility] [address] [id number] [place] [address] May, [facility] [address] [id number] [place] [address] May, [facility] [address] [id number] [place] [address] December, [facility] [address] [id number] [place] [address] December, [facility] [address] [id number] [place] [address] Aug, [facility] [address] [id number] [place] [address] 29 Jul, 2010 [facility] [address] [id number] [place] [address]- [address] 28 Jul, 2010 [facility] [address] [id number] [place] [address] 23 Jul, 2010 [facility] [address] [id number] [place] [address] 2546 16 Jul, 2010 [facility] [address] [id number] [place] [address]40 16 Jul, 2010 [facility] [address] [id number] [place] [address] 2540 03 Jul, 2010 [facility] [address] [id number] [place] [address]43 30 Jun, 2010 [facility] [address] [id number] [place] [address] Jun, [facility] [address] [facility] [id number], [place] [address] Jun, [facility] [id number], [place] [address] Jun, [facility] [id number], [place] [address] Jun, [facility] [address] [facility] [id number], [place] [address] May, [facility] [address] [facility] [id number], [place] [address] December, [facility] [address]00565100[place], [place] [address] December, [facility] [id number], [place] [address] Oct, [facility] [address]00565100[place], [place] [address] Jul, [facility] [address]65100[place] [address] Jul, [facility] [address]00565100[place], [place] [address] Jul, [facility] [address] [id number], [place] [address] Jun, [facility] [address] [id number], [place] [address] May, [facility] [address] [id number], [place] [address] Jun, IMMUNIZATIONS No Known Immunizations SOCIAL HISTORY Never Assessed REASON FOR VISIT 1 month follow up on diabetes-still running high, and acid reflux-doing well. milton Ann PLAN OF CARE Activity Details Follow Up 4 Weeks Reason:dm VITAL SIGNS Height 54 in 2018-01-22 Weight 303.4 lbs 2018-01-22 Temperature 98.2 degrees Fahrenheit 2018-01-22 Heart Rate 70 bpm 2018-01-22 Respiratory Rate 22 2018-01-22 BMI 73.14 kg/m2 2018-01-22 Blood pressure systolic 128 mmHg 2018-01-22 Blood pressure diastolic 80 mmHg 2018-01-22 MEDICATIONS Medication Instructions Dosage Frequency Start Date End Date Duration Status Sodium Bicarbonate 650 MG TAKE TWO (2) TABLETS BY MOUTH TWICE A DAY ( APPROX. EVERY 12 HOURS) Active Vitamin D (Ergocalciferol) 69684 UNIT Orally twice a month 1 capsule Active Mevacor 20 MG TAKE (1) TABLET BY MOUTH ONCE DAILY WITH A MEAL. Active Omeprazole 40 MG Orally 2 times a day 1 tablet 12h Active Bathtub Safety Rail - as directed December, Active ProAir HFA 108 (90 Base) MCG/ACT Inhalation every 4 hrs 2 puffs as needed 4h Active Iron Supplement 325 (65 Fe) MG Orally twice a day 2 tablet in am and 1 tab at hs 12h Not-Taking Acetaminophen 325 MG Orally every 4 hrs 1 capsule as needed 4h Active Pepcid 20 MG TAKE 1 TABLET BY MOUTH ONCE DAILY AT BEDTIME... Active Anoro Ellipta 62.5-25 MCG/INH Inhalation Once a day 1 puff 24h Nov, Active Nitroglycerin 0.4 MG Active Amlodipine Besylate 10 mg Orally Once a day 1 tablet 24h 0 Active Hydrocodone-Acetaminophen 5-325 MG Orally every 4 hrs, prn 1-2 tablet as needed Not-Taking Oxygen & Tubing by inhalation route 13/03 2 / nc w protable O2 and conserving device Oct, Active True Metrix Blood Glucose Test - CHECK BLOOD SUGAR TWICE DAILY DIRECTED.. Active Albuterol Sulfate (2.5 MG/3ML) 0.083% Inhalation Three times a day 3 ml as needed 8h Nov, Active Clonidine HCl 0.1 MG Orally Once a day 1 tablet at bedtime 24h Active Bath/Shower Seat - as directed December, Active Zemplar 1 MCG 1 capsule Active Levemir 100 UNIT/ML Subcutaneous 2 times a day 68 un am 64 units 12h Sep Active Test strips 1 subcutaneously 2 times a day as directed 12h Aug, Active Aspirin 81 81 MG Orally Once a day 1 tablet 24h Active Loratadine 10 MG TAKE ONE (1) TABLET BY MOUTH DAILY... 90 Active Sertraline HCl 100 MG Orally Once a day 1 tablet 24h Active HydrALAZINE HCl 50 mg Orally every 8 hours 1 1/2 tablets 8h Active Glucometer as directed Aug, Active Eliquis 5 mg Orally 2 times a day 1 tablet 12h Active Furosemide 40 mg Orally 2 times a day 1 tablet 12h Active RESULTS No Results PROCEDURES Procedure Date Ordered Result Body Site [facility] VISIT ESTABLISHED PATIENT January 22, 2018 INSTRUCTIONS MEDICATIONS ADMINISTERED No Known Medications [...] [facility] N/V/D 05/2015 Hospitalization History Kamille RODRÍGUEZ influenza 08/2017 Hospitalization History CHF exacerbation 08/2017
--- OUTSIDE RECORDS SUMMARY | 2018-07-11 11:15 | XMS REPORT ---
Author Author JOSEP GONG [facility] Address [address] [place] [address] Care Team Providers Care Clay Transporter Name Role Phone JOSEP GONG Unavailable PROBLEMS Type Condition ICD9-CM Code JEM57-OQ Code Onset Dates Condition Status SNOMED Code Problem Chronic bronchitis, unspecified chronic bronchitis type J42 Active 99921901 Problem Vitamin D deficiency, unspecified E55.9 Active 32022841 Problem Chronic obstructive pulmonary disease with acute exacerbation J44.1 Active 919138243 Problem Gastric reflux K21.9 Active 366539005 Problem Right knee pain M25.561 Active 19772288 Problem Paroxysmal atrial fibrillation I48.0 Active 139510879 Problem Sprain of right knee, unspecified ligament, initial encounter S83.91XA Active 75618158 Problem Abscess L02.91 Active 666582182 Problem Obesity, unspecified E66.9 Active 85770818585130 Problem Chronic obstructive pulmonary disease, unspecified COPD type J44.9 Active 78749410 Problem Chronic congestive heart failure, unspecified heart failure type I50.9 Active 19406130 Problem Body mass index (BMI) of 40.0-44.9 in adult Z68.41 Active 475370556 Problem Hyperlipidemia, unspecified E78.5 Active 35159942 Problem Chronic renal disease, unspecified stage N18.9 Active 434325774 Problem Type 2 diabetes mellitus with other diabetic kidney complication E11.29 Active 397263317 Problem Essential hypertension I10 Active 25377084 Problem Proteinuria R80.9 Active 66370887 Problem Renal osteodystrophy N25.0 Active 64569315 Problem Chronic kidney disease, stage IV (severe) N18.4 Active 927112288 Problem Essential (primary) hypertension I10 Active 17927435 Problem Venous (peripheral) insufficiency I87.2 Active 64167907 Problem Anemia of renal disease D63.1 Active 476414161 Problem Type 2 diabetes mellitus with diabetic nephropathy E11.21 Active 372120340 ALLERGIES Substance Reaction Event Type Date Status Percocet rash Drug Allergy Nov, Active Nubain rash Drug Allergy Nov, Active Lyrica anaphylaxis Drug Allergy Nov, Active Januvia rash Drug Allergy Nov, Active Fluoxetine nausea Drug Allergy Nov, Active Bexarotene rash Drug Allergy Nov, Active IV dye hives Non Drug Allergy Nov, Active ENCOUNTERS Encounter Location Date Diagnosis [facility] [id number] [id number] Apr, [facility] [address] [id number] Mar, [facility] [address] [place] [address] [id number] Mar, Type 2 diabetes mellitus with diabetic nephropathy E11.21 ; Gastric reflux K21.9 and Chronic kidney disease, stage IV (severe) N18.4 [facility] [address] [place] [address] [id number] Feb, [facility] [id number] [place] [address] [id number] Feb, Type 2 diabetes mellitus with other diabetic kidney complication E11.29 [facility] [id number] [place] [address] [id number] Jan, Body mass index (BMI) 70 or greater, adult Z68.45 and Type 2 diabetes mellitus with other diabetic kidney complication E11.29 [facility] [address] [place] [address] [id number] Nov, Body mass index (BMI) 70 or greater, adult Z68.45 ; Chronic obstructive pulmonary disease, unspecified COPD type J44.9 ; Chronic kidney disease, stage IV (severe) N18.4 and Gastric reflux K21.9 [facility] [address] [place] [address] [id number] Oct, Body mass index (BMI) 70 or greater, adult Z68.45 ; Type 2 diabetes mellitus with other diabetic kidney complication E11.29 ; Chronic obstructive pulmonary disease with acute exacerbation J44.1 and Paroxysmal atrial fibrillation I48.0 [facility] [address] [place] [address] [id number] Oct, [facility] [id number] [place] [id number] Oct, Type 2 diabetes mellitus with diabetic nephropathy E11.21 ; Chronic renal disease, unspecified stage N18.9 ; Chronic congestive heart failure, unspecified heart failure type I50.9 and Chronic obstructive pulmonary disease with acute exacerbation J44.1 [facility] [id number] [place] [address] [id number] Sep, [facility] [id number] [place] [address] [id number] Sep, [facility] [id number] [place] [address] [id number] Sep, [facility] [address] [address] Sep, Type 2 diabetes mellitus with diabetic nephropathy E11.21 [address] [place] [address] [id number] Aug, Influenza J11.1 and Essential (primary) hypertension I10 [facility] [id number] [place] [address]- 2546 Aug, [place] [id number] [place] [address] [id number] Jul, Type 2 diabetes mellitus with diabetic nephropathy E11.21 ; Essential ( primary) hypertension I10 and Chronic obstructive pulmonary disease, unspecified COPD type J44.9 [facility] [address] [place] [address] [id number] Jun, Dental caries K02.9 [facility] [id number] [place] [address] [id number] May, Cough R05 ; Chronic obstructive pulmonary disease, unspecified COPD type J44.9 ; Shortness of breath R06.02 ; Obesity, unspecified E66.9 ; Body mass index (BMI) of 40.0-44.9 in adult Z68.41 and Encounter for immunization Z23 [facility] [id number] [place] [address] [id number] May, Dental examination Z01.20 [facility] [address] [id number] [id number] May, Essential hypertension I10 [address] [id number] Apr, Anemia of renal disease D63.1 ; Type 2 diabetes mellitus with other diabetic kidney complication E11.29 ; Vitamin D deficiency, unspecified E55.9 and Chronic renal disease, unspecified stage N18.9 [facility] [address], [place] [address] Mar, [facility] [address] [id number] Mar, Type 2 diabetes mellitus with other diabetic kidney complication E11.29 ; Essential hypertension I10 ; Chronic renal disease, unspecified stage N18.9 and Chronic obstructive pulmonary disease with acute exacerbation J44.1 [facility] [address] [place] [address] [id number] Feb, [address] [place] [address] [id number] Feb, Chronic renal disease, unspecified stage N18.9 ; Essential (primary) hypertension I10 and Type 2 diabetes mellitus with other diabetic kidney complication E11.29 [address] [place] [address] [id number] Feb, Type 2 diabetes mellitus with other diabetic kidney complication E11.29 ; Chronic kidney disease, stage IV (severe) N18.4 ; Renal osteodystrophy N25.0 ; Anemia of renal disease D63.1 and Essential (primary) hypertension I10 [facility] [address] [id number] December, [address] [place] [address] [id number] December, Chronic obstructive pulmonary disease with acute exacerbation J44.1 ; Essential (primary) hypertension I10 ; Low back pain M54.5 and Right knee pain M25.561 [address] [id number] Nov, Chronic renal disease, unspecified stage N18.9 ; Essential hypertension I10 ; Type 2 diabetes mellitus with other diabetic kidney complication E11.29 and Chronic obstructive pulmonary disease with acute exacerbation J44.1 [address] [place] [address] [id number] Nov, Chronic renal disease, unspecified stage N18.9 ; Hyperlipidemia, unspecified E78.5 and Essential hypertension I10 [address] [place] [address] [id number] Oct, Chronic bronchitis, unspecified chronic bronchitis type J42 and Type 2 diabetes mellitus with diabetic nephropathy E11.21 [id number] [place] [address] [id number] Sep, Chronic bronchitis, unspecified chronic bronchitis type J42 ; Essential ( primary) hypertension I10 and Type 2 diabetes mellitus with other diabetic kidney complication E11.29 [address] [place] [id number] [place] [address] [id number] Sep, Chronic obstructive pulmonary disease with acute exacerbation J44.1 [place] [address] [id number] [place] [address] [id number] Aug, Type 2 diabetes mellitus with diabetic nephropathy E11.21 ; Chronic kidney disease, stage IV (severe) N18.4 ; Essential (primary) hypertension I10 and Encounter for immunization Z23 [id number] [place] [address] [id number] Aug, Chronic kidney disease, stage IV (severe) N18.4 ; Type 2 diabetes mellitus with diabetic nephropathy E11.21 and Type 2 diabetes mellitus with hyperglycemia E11.65 [address] [place] [address] [id number] May, Anemia of renal disease D63.1 ; Essential (primary) hypertension I10 ; Renal osteodystrophy N25.0 ; Proteinuria R80.9 ; Chronic kidney disease, stage IV (severe) N18.4 and Type 2 diabetes mellitus with other diabetic kidney complication E11.29 [address] [place] [address] [id number] Mar, Type 2 diabetes mellitus with other diabetic kidney complication E11.29 ; Essential hypertension I10 ; Chronic renal disease, unspecified stage N18.9 and TMJ (temporomandibular joint disorder) M26.60 [address] [place] [address] [id number] Jan, Chronic kidney disease, stage IV (severe) N18.4 and Hyperlipidemia, unspecified E78.5 [id number] [place] [address] [id number] December, Type 2 diabetes mellitus with other diabetic kidney complication E11.29 ; Abscess L02.91 and Chronic kidney disease, stage IV (severe) N18.4 [id number] [place] [address] [id number] December, Abscess L02.91 [address] [place] [address] [id number] December, [id number] [place] [address] [id number] Oct, Renal osteodystrophy N25.0 ; Chronic kidney disease, stage IV (severe) N18.4 and Vitamin D deficiency E55.9 [address] [place] [address] [id number] Oct, [address] [place] [address] [id number] Sep, Type 2 diabetes mellitus with other diabetic kidney complication E11.29 ; Essential hypertension I10 and Chronic airway obstruction, not elsewhere classified J44.9 [address] [place] [address] [id number] Sep, [address] [place] [address] [id number] Aug, [id number] [place] [address] [id number] Jul, [id number] [place] [address] [id number] Jul, [address] [place] [address] [id number] Jul, Chronic kidney disease, stage IV (severe) N18.4 ; Renal osteodystrophy N25.0 and Proteinuria R80.9 [facility] [id number] [place] [address] [id number] 9336 Jul, [facility] [address] [facility] [id number] [place] [id number] Jun, [facility] [id number] [place] [id number] Jun, [id number] [id number] Jun, Diabetes with renal manifestations, type II or unspecified type, uncontrolled 250.42 and Right knee pain M25.561 [facility] [address] [id number] [address]- 25[address] May, [id number] [place] [address] [id number] May, Encounter for immunization Z23 ; Abscess L02.91 and Sprain of right knee, unspecified ligament, initial encounter S83.91XA [address] [place] [address] [id number] May, Abscess L02.91 [facility] [place] [address] [facility] [id number] [place] [id number] May, [id number] [place] [address] [id number] Apr, Diabetes with renal manifestations, type II or unspecified type, uncontrolled 250.42 and PPV23 (PNEUMOVAX) DX V03.82 [address] [place] [address] [id number] Mar, [address] [place] [address] [id number] Mar, Proteinuria 791.0 ; Renal osteodystrophy 588.0 ; Chronic kidney disease, Stage IV (severe) 585.4 ; Benign essential hypertension 401.1 and Vitamin D deficiency 268.9 [address] [place] [address] [id number] Feb, Avulsion fracture of ankle 824.8 [id number] [place] [address] [id number] Feb, [place] [address] [id number] Feb, [facility] [id number] [place] [id number] Feb, Diabetes with renal manifestations, type II or unspecified type, uncontrolled 250.42 [facility] [id number] [place] [id number] Jan, Diabetes with renal manifestations, type II or unspecified type, uncontrolled 250.42 [facility] [id number] [place] [id number] December, Diabetes with renal manifestations, type II or unspecified type, uncontrolled 250.42 and Unspecified essential hypertension 401.9 [facility] [id number] [place] [id number] December, [facility] [id number] [place] [address] [id number] December, [facility] [id number] [place] [address] [id number] December, Essential hypertension 401.9 [facility] [id number] [place] [id number] Nov, Essential hypertension 401.9 [facility] [id number] [place] [address] [id number] Nov, [facility] [id number] [place] [id number] Nov, [facility] [id number] [place]INGS[place] [id number] Nov, [facility] [id number] [place] [address] 99042- 2546 Nov, [facility] [address] [place] [address] 21554- 2546 Nov, [facility] [id number] [place] [id number] Oct, [facility] [place] [facility] [id number] [place] [address] 54539- 2546 Oct, [facility] [id number] [place] [address] [id number] Oct, [facility] [place] [facility] [address] [facility] [id number] [address]- 7668 Oct, [facility] [place] [facility] [address] [facility] [id number] [address]- 3[address] Oct, [facility] [address] [id number] [place] [id number] Oct, [facility] [address] [id number] [place] [id number] Oct, [facility] [place] [facility] [address] [facility] [id number], [place] [address]- 2108 Oct, [facility] [place] [facility] [address] [facility] [id number] [address]- 4648 Sep, [facility] [address] [id number] SPRINGS[place] [id number] Sep, [facility] [address] [id number] [place] [id number] Sep, [facility] [place] [facility] [address] [facility] [id number] [address]- 3638 Sep, [facility] [address] [facility] [id number] [place]INGS[place] [id number] Aug, [facility] [place] [facility] [address] [facility] [id number], [place] [address]- 2987 Aug, [facility] [address] [id number] [place] [id number] Aug, [facility] [place] [facility] [address] [facility] [id number], [place] [address]- 8144 Aug, [facility] [address] [facility] [id number] SPRINGS[place] [id number] Aug, [facility] [place] [facility] [address] [facility] [id number], [place] [address]- 5627 Aug, [facility] [place] [facility] [address] [facility] [id number], [place] [address]- 3469 Aug, [facility] [address] [id number] SPRINGS[place] [id number] Aug, [facility] [place] [facility] [address] [facility] [id number] [place] [address]- 5016 Jul, [facility] [place] [facility] [address] [facility] [id number], [place] [address]- 8576 Jul, [facility] [address] [facility] [id number] [place] [id number] Jul, [facility] [place] [facility] [address] [facility] [id number], [place] [address]- 0676 Jul, [facility] [address] [facility] [id number] [place] [id number] Jul, [facility] [facility] [address] [facility] [id number] [address]- 7146 Jul, [facility] [address] [facility] [id number] [place] [id number] Jul, [facility] [place] [facility] [address] [facility] [id number], [place] [address]- 9726 Jul, [facility] [place] [facility] [address] [facility] [id number], [place] [address]- 5326 May, [facility] [address] [facility] [id number] [place]INGS[place] [id number] May, [facility] [address] [facility] [id number] [place] [id number] May, [facility] [place] [facility] [address] [facility] [id number], [place] [address]- 2546 May, [facility] [address] [facility] [id number] [place] [id number] Apr, [facility] [place] [facility] [address] [facility] [id number] [address]- 2546 Apr, [facility] [address] [facility] [id number] [place] [id number] Mar, [facility] [place] [facility] [address] [facility] [id number], [place] [address]- 9356 Mar, [facility] [place] [facility] [address] [facility] [id number] [address]- 1536 Mar, [facility] [place] [facility] [address] [id number] [place] [address]- 8245 Mar, [facility] [address] [id number] [place] [id number] Mar, [facility] [address] [id number] [place] [id number] Feb, [facility] [place] [facility] [address] [id number] [place] [address]- 8780 Feb, [facility] [address] [id number] [place] [id number] Jan, [facility] [place] [facility] [address] [id number] [place] [address]- 7169 Jan, [facility] [place] [facility] [address] [facility] [id number] [place] [address]- 2678 Jan, [facility] [address] [id number] [place] [id number] Jan, [facility] [address] [facility] [id number] [place] [id number] Jan, [facility] [place] [facility] [address] [facility] [id number] [place] [address]- 3915 Jan, [facility] [address] [facility] [id number] [place] [id number] December, [facility] [place] [facility] [address] [facility] [id number] [place] [address]- 0126 December, [facility] [place] [facility] [address] [facility] [id number] [place] [address]- 3045 Nov, [facility] [place] [facility] [address] [facility] [id number] [place] [address]- 1760 Nov, [facility] [address] [facility] [id number] [place] [id number] Nov, [facility] [place] [facility] [address] [facility] [id number] [place] [address]- 6449 Nov, [facility] [address] [id number] [place] [id number] Oct, [facility] [place] [facility] [address] [facility] [id number], [place] [address]- 0386 Oct, [facility] [address] [id number] [place] [id number] Oct, [facility] [address] [facility] [id number] [address]- 7383 Oct, [facility] [address] [facility] [id number] [place] [id number] Oct, [facility] [address] [facility] [id number], [place] [address]- 7336 Oct, [facility] [address] [facility] [id number] [place] [id number] Oct, [facility] [place] [facility] [address], [place] [address]- 7860 Oct, [facility] [address] [facility] [id number] [place] [id number] Aug, [facility] [facility] [address] [facility] [id number] [address]- 8301 Aug, [facility] [address] [facility] [id number] [place] [id number] Jul, [facility] [facility] [address] [facility] [id number] [address]- 5206 Jul, [facility] [address] [facility] [id number] [place] [id number] Jun, [facility] [facility] [address] [facility] [id number], [place] [address]- 9513 Jun, [facility] [address] [facility] [id number] [address]- 3618 Jun, [facility] [address] [facility] [id number] [place] [id number] Jun, [facility] [address] [facility] [id number] [place] [id number] May, [facility] [facility] [address] [facility] [id number] [address]- 2866 May, [facility] [address] [facility] [id number] [address]- 7346 May, [facility] [address] [id number] [place] [id number] May, [facility] [address] [facility] [id number] [address] 2546 May, [facility] [address] [id number] [place] [id number] May, [facility] [address] [facility] [id number] [address]- 3236 May, [facility] [address] [facility] [id number] [place] [id number] May, [facility] [address]00565100[place], [place] [address]- 3236 Apr, [facility] [address] [id number] [address]- 2540 Apr, [facility] [address] [facility] [id number] [place] [id number] Apr, [facility] [address] [facility] [id number] [address] Apr, [facility] [address] [id number] [address] Mar, [facility] [place] [address] [id number] [place] [id number] Mar, [facility] [place] [address] [id number] [place] [id number] Feb, [facility] [place] [address] [id number] [place] [id number] Feb, [facility] [place] [address] [id number] [place] [id number] Feb, [facility] [place] [address] [id number] [place] [id number] Jan, [facility] [address] [facility] [place] [id number], [place] [address] Jan, [facility] [place] [address] [id number] [place] [id number] Jan, [facility] [place] [address] [id number] [place] [id number] December, [facility] [address] [facility] [place] [id number], [place] [address] December, [facility] [place] [address] [id number] [place] [id number] December, [facility] [place] [address] [id number] [place] [id number] December, [facility] [place] [address] [id number] [place] [id number] Nov, [facility] [place] [address] [id number] [place] [id number] Nov, [facility] [id number] [address] Nov, [facility] [place] [address] [id number] [place] [id number] Nov, [facility] [place] [address] [id number] [place] [id number] Oct, [facility] [place] [address] [id number] [place] [id number] Oct, [facility] [address] [id number] [place] [id number] Oct, [facility] [address] [id number] [place] [id number] Oct, [facility] [address] [id number] [place] [id number] Sep, [facility] [address] [id number] [id number] Sep, [facility] [address] [facility] [place] [id number], [place] [address] Aug, [facility] [id number] [address] Aug, [facility] [address] [id number] [place] [id number] Aug, [facility] [address] [id number] [place] [id number] Aug, [facility] [address] [id number] [place] [id number] Jul, [facility] [address] [id number] [place] [id number] Jul, [facility] [place] [facility] [address] [facility] [place] [id number], [place] [address] Jul, [facility] [place] [facility] [address] [facility] [place] [id number], [place] [address] Jul, [facility] [place] [address] [facility] [id number] [place] [id number] Jul, [facility] [address] [facility] [place] [id number], [place] [address] Jul, [facility] [address] [facility] [id number] [place] [id number] Jul, [facility] [place] [facility] [address] [facility] [place] [id number] [address] Jul, [facility] [place] [facility] [address] [id number] [address] Jul, [facility] [address] [facility] [id number] [place]INGS[place] [id number] Jul, [facility] [address] [facility] [id number] [place] [id number] Jul, [facility] [place] [facility] [address] [facility] [place] [id number], [place] [address] Jul, [facility] [address] [facility] [id number] [place] [id number] Jun, [facility] [place] [facility] [address] [facility] [place] [id number]25[place] [address] Jun, [facility] [place] [facility] [address] [id number], [place] [address] Jun, [facility] [address] [id number] [place] [id number] Jun, [facility] [address] [facility] [place] [id number], [place] [address] Jun, [facility] [address] [facility] [place] [id number], [place] [address] Jun, [facility] [place] [address] [id number] [place] [id number] Jun, [facility] [address] [facility] [place] [id number], [place] [address] Jun, [facility] [address] [id number] [place] [id number] Jun, [facility] [address] [facility] [place] [id number] [address] Jun, [facility] [address] [id number] [place] [id number] May, [facility] [id number] [address] Apr, [facility] [id number] [place] [address] Apr, [facility] [address] [id number] [place] [id number] Apr, [facility] [address] [id number] [place] [id number] Apr, [facility] [address] [id number] [place] [id number] Apr, [facility] [address] [id number] [place] 570627944 Apr, [facility] [address] [id number] [place] [id number] Apr, [facility] [address] [id number] [place] [id number] Mar, [facility] [address] [id number] [place] [id number] Mar, [facility] [address] [id number] [place] [id number] Mar, [facility] [address] [id number] [place] [id number] Mar, [facility] [address] [id number] [id number] Mar, [facility] [address] [id number] [place] [id number] Mar, [facility] [address] [id number] [place] [id number] Mar, [facility] [address] [id number] [place] [id number] Feb, [facility] [address] [id number] [place] [id number] Feb, [facility] [address] [id number] [place] [id number] Jan, [facility] [address] [id number] [id number] Jan, [facility] [address] [id number] [id number] Jan, [facility] [address] [id number] [id number] Jan, [facility] [address] [id number] [place] [address]26[place] Jan, [facility] [address] [id number] [place] [id number] Jan, [facility] [address] [id number] [place] [id number] December, [facility] [address] [id number] [place] [id number] Nov, [facility] [address] [id number] [place] [id number] Oct, [facility] [address] [id number] [place] [id number] Oct, [facility] [address] [id number] [place] [id number] Oct, [facility] [address], [place] [address] Oct, [facility] [address] [id number] [place] [id number] Oct, [facility] [address] [id number] [place] [id number] Oct, [facility] [address] [id number] [place] [id number] Oct, [facility] [address] [id number] [place] [id number] Oct, [facility] [address] [id number] [place] [id number] Oct, [facility] [address] [id number] [place] [id number] Oct, [facility] [address] [id number] [place] [id number] Sep, [facility] [address], [place] [address] Sep, [facility] [address] [id number] [place] [id number] Sep, [facility] [address] [id number] [place] [id number] Aug, [facility] [address] [id number] [id number] Aug, [facility] [address] [id number] [place] [id number] Aug, [facility] [address], [place] [address] Aug, [facility] [address] [facility] [place] [id number], [place] [address]- [address] Jul, [facility] [address] [id number], [place] [address] Jul, [facility] [id number], [place] [address] Jul, [facility] [id number], [place] [address] 05 Jul, 2011 [facility] [address] [id number] [place] [address]- [address] 17 Jun, 2011 [facility] [place] [facility] [address] [id number] [place] [address]- 9181 Jun, [facility] [place] [facility] [address] [id number] [place] [address]- [address] May, [facility] [place] [facility] [address] [id number] [place] [address]- [address]90 May, [facility] [place] [facility] [address] [id number] [place] [address]- [address] December, [facility] [place] [facility] [address] [id number] [place] [address]- [address] December, [facility] [place] [facility] [address] [id number] [place] [address]- [address] Aug, [facility] [place] [facility] [address] [id number] [place] [address]- [address] 29 Jul, 2010 [facility] [place] [facility] [address] [id number] [place] [address]- [address]99 28 Jul, 2010 [facility] [place] [facility] [address] [id number] [place] [address]- [address] 23 Jul, 2010 [facility] [place] [facility] [address] [id number], [place] [address]- [address] 16 Jul, 2010 [facility] [place] [facility] [address] [id number], [place] [address]- 8545 16 Jul, 2010 [facility] [place] [facility] [address] [id number] [place] [address]- 9674 Jul, [facility] [place] [facility] [address] [id number] [place] [address]- 4506 30 Jun, 2010 [facility] [place] [facility] [address] [id number] [place] [address]- 7764 30 Jun, 2010 [facility] [place] [facility] [id number], [place] [address]- [address] Jun, [facility] [id number] Jun, [facility] [id number], [place] [address]- [address] Jun, [facility] [id number] [address] May, [facility] [id number], [place] [address]- [address] December, [facility] [id number] [place] [address]- 9362 December, [facility] [id number] [place] [address]- 9290 Oct, [facility] [id number] [place] [address] 647962- 3[address] Jul, [facility] [id number], [place] [address]- 0741 Jul, [facility] [id number] [place] [address] 699147- 3593 Jul, [facility] [id number], [place] [address]- [address] Jun, [facility] [id number] May, [facility] [id number], [place] [address]- [address] Jun, IMMUNIZATIONS No Known Immunizations SOCIAL HISTORY Never Assessed REASON FOR VISIT Hospital f/u for chest pain Laurence JACOBSEN PLAN OF CARE Activity Details Follow Up 4 Weeks Reason:reflux/dm VITAL SIGNS Height 54 in 2017-12-11 Weight 307.4 lbs 2017-12-11 Temperature 97.8 degrees Fahrenheit 2017-12-11 Heart Rate 78 bpm 2017-12-11 Respiratory Rate 20 2017-12-11 Oximetry w/ oxygen:98 % 2017-12-11 BMI 74.11 kg/m2 2017-12-11 Blood pressure systolic 118 mmHg 2017-12-11 Blood pressure diastolic 60 mmHg 2017-12-11 MEDICATIONS Medication Instructions Dosage Frequency Start Date End Date Duration Status Sucralfate 1 GM Orally Twice a day 1 tablet at bedtime on an empty stomach before meals 12h Nov, December, 30 day(s) Active Furosemide 40 mg Orally 2 times a day 1 tablet 12h Active Hydrocodone-Acetaminophen 5-325 MG Orally every 4 hrs, prn 1-2 tablet as needed Not-Taking Zemplar 1 MCG 1 capsule Active Clonidine HCl 0.1 MG Orally Once a day 1 tablet at bedtime 24h Active Sertraline HCl 100 MG Orally Once a day 1 tablet 24h Active Test strips 1 subcutaneously 2 times a day as directed 12h Aug, Active Levemir 100 UNIT/ML Subcutaneous 2 times a day 62 un am 58 units 12h Sep Active Omeprazole 40 MG Orally 2 times a day 1 tablet 12h Active Vitamin D (Ergocalciferol) 45358 UNIT Orally twice a month 1 capsule Active Albuterol Sulfate (2.5 MG/3ML) 0.083% Inhalation Three times a day 3 ml as needed 8h Nov, Active ProAir HFA 108 (90 Base) MCG/ACT Inhalation every 4 hrs 2 puffs as needed 4h Active Eliquis 5 mg Orally 2 times a day 1 tablet 12h Active Loratadine 10 MG TAKE ONE (1) TABLET BY MOUTH DAILY... 90 Active Mevacor 20 MG TAKE (1) TABLET BY MOUTH ONCE DAILY WITH A MEAL. Active Oxygen & Tubing by inhalation route 13/03 2 / nc w protable O2 and conserving device Oct, Active Glucometer as directed Aug, Active Pepcid 20 MG TAKE 1 TABLET BY MOUTH ONCE DAILY AT BEDTIME... Active Acetaminophen 325 MG Orally every 4 hrs 1 capsule as needed 4h Active Amlodipine Besylate 10 mg Orally Once a day 1 tablet 24h 0 Active Bath/Shower Seat - as directed December, Active Aspirin 81 81 MG Orally Once a day 1 tablet 24h Active Sodium Bicarbonate 650 MG TAKE TWO (2) TABLETS BY MOUTH TWICE A DAY ( APPROX. EVERY 12 HOURS) Active HydrALAZINE HCl 50 mg Orally every 8 hours 1 1/2 tablets 8h Active Bathtub Safety Rail - as directed December, Active Nitroglycerin 0.4 MG Active Oxybutynin Chloride 5 MG Orally 3 times a day 1 tablet 8h Active True Metrix Blood Glucose Test - CHECK BLOOD SUGAR TWICE DAILY DIRECTED.. Active Iron Supplement 325 (65 Fe) MG Orally twice a day 2 tablet in am and 1 tab at hs 12h Active Anoro Ellipta 62.5-25 MCG/INH Inhalation Once a day 1 puff 24h Nov, Active RESULTS No Results PROCEDURES Procedure Date Ordered Result Body Site [facility] VISIT ESTABLISHED PATIENT December 11, 2017 INSTRUCTIONS MEDICATIONS ADMINISTERED No Known Medications [...]
--- OUTSIDE RECORDS SUMMARY | 2018-07-11 11:16 | XMS REPORT ---
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 Name Role Phone JOSEP GONG Unavailable PROBLEMS Type Condition ICD9-CM Code RVO98-ER Code Onset Dates Condition Status SNOMED Code Problem Chronic bronchitis, unspecified chronic bronchitis type J42 Active 62267965 Problem Vitamin D deficiency, unspecified E55.9 Active 34508905 Problem Chronic obstructive pulmonary disease with acute exacerbation J44.1 Active 817388039 Problem Gastric reflux K21.9 Active 999269172 Problem Right knee pain M25.561 Active 35216587 Problem Paroxysmal atrial fibrillation I48.0 Active 359661410 Problem Sprain of right knee, unspecified ligament, initial encounter S83.91XA Active 75612213 Problem Abscess L02.91 Active 952967914 Problem Obesity, unspecified E66.9 Active 05730087619866 Problem Chronic obstructive pulmonary disease, unspecified COPD type J44.9 Active 35437728 Problem Chronic congestive heart failure, unspecified heart failure type I50.9 Active 95918929 Problem Body mass index (BMI) of 40.0-44.9 in adult Z68.41 Active 575572764 Problem Hyperlipidemia, unspecified E78.5 Active 12462543 Problem Chronic renal disease, unspecified stage N18.9 Active 356071344 Problem Type 2 diabetes mellitus with other diabetic kidney complication E11.29 Active 771821837 Problem Essential hypertension I10 Active 98566678 Problem Proteinuria R80.9 Active 39278622 Problem Renal osteodystrophy N25.0 Active 61030887 Problem Chronic kidney disease, stage IV (severe) N18.4 Active 681086150 Problem Essential (primary) hypertension I10 Active 82917399 Problem Venous (peripheral) insufficiency I87.2 Active 06054908 Problem Anemia of renal disease D63.1 Active 626050708 Problem Type 2 diabetes mellitus with diabetic nephropathy E11.21 Active 236950601 ALLERGIES Substance Reaction Event Type Date Status Percocet rash Drug Allergy Oct, Active Nubain rash Drug Allergy Oct, Active Lyrica anaphylaxis Drug Allergy Oct, Active Januvia rash Drug Allergy Oct, Active Fluoxetine nausea Drug Allergy Oct, Active Bexarotene rash Drug Allergy Oct, Active IV dye hives Non Drug Allergy Oct, Active ENCOUNTERS Encounter Location Date Diagnosis [facility] [address] [facility] [id number] [id number] Mar, [facility] [address] [id number] Mar, [address] [place] [address] [id number] Feb, [place] [id number] [place] [address] [id number] Feb, Type 2 diabetes mellitus with other diabetic kidney complication E11.29 [place] [address] [place] [address] [id number] Jan, Body mass index (BMI) 70 or greater, adult Z68.45 and Type 2 diabetes mellitus with other diabetic kidney complication E11.29 [address] [id number] Nov, Body mass index (BMI) 70 or greater, adult Z68.45 ; Chronic obstructive pulmonary disease, unspecified COPD type J44.9 ; Chronic kidney disease, stage IV (severe) N18.4 and Gastric reflux K21.9 [address] [place] [address] [id number] Oct, Body mass index (BMI) 70 or greater, adult Z68.45 ; Type 2 diabetes mellitus with other diabetic kidney complication E11.29 ; Chronic obstructive pulmonary disease with acute exacerbation J44.1 and Paroxysmal atrial fibrillation I48.0 [address] [place] [address] [id number] Oct, [place] [address] [place] [address] [id number] Oct, Type 2 diabetes mellitus with diabetic nephropathy E11.21 ; Chronic renal disease, unspecified stage N18.9 ; Chronic congestive heart failure, unspecified heart failure type I50.9 and Chronic obstructive pulmonary disease with acute exacerbation J44.1 [facility] [id number] [place] [address] [id number] Sep, [facility] [address] [id number] Sep, [facility] [id number] [place] [address] [id number] Sep, [facility] [address] [address] Sep, Type 2 diabetes mellitus with diabetic nephropathy E11.21 [facility] [id number] [place] [address] [id number] Aug, Influenza J11.1 and Essential (primary) hypertension I10 [facility] [address] [address] Aug, [address] [id number] Jul, Type 2 diabetes mellitus with diabetic nephropathy E11.21 ; Essential ( primary) hypertension I10 and Chronic obstructive pulmonary disease, unspecified COPD type J44.9 [facility] [address] [id number] Jun, Dental caries K02.9 [place] [id number] [place] [address] [id number] May, Cough R05 ; Chronic obstructive pulmonary disease, unspecified COPD type J44.9 ; Shortness of breath R06.02 ; Obesity, unspecified E66.9 ; Body mass index (BMI) of 40.0-44.9 in adult Z68.41 and Encounter for immunization Z23 [facility] [id number] [place] [address] [id number] May, Dental examination Z01.20 [facility] [id number] [place] [address] [id number] May, Essential hypertension I10 [place] [id number] [place] [address] [id number] Apr, Anemia of renal disease D63.1 ; Type 2 diabetes mellitus with other diabetic kidney complication E11.29 ; Vitamin D deficiency, unspecified E55.9 and Chronic renal disease, unspecified stage N18.9 [facility] [address]005[address], [place] [address] Mar, [facility] [address] [address] [id number] [id number] Mar, Type 2 diabetes mellitus with other diabetic kidney complication E11.29 ; Essential hypertension I10 ; Chronic renal disease, unspecified stage N18.9 and Chronic obstructive pulmonary disease with acute exacerbation J44.1 [facility] [id number] [id number] Feb, [facility] [address] [place] [address] [id number] Feb, Chronic renal disease, unspecified stage N18.9 ; Essential (primary) hypertension I10 and Type 2 diabetes mellitus with other diabetic kidney complication E11.29 [facility] [id number], [place] [id number] Feb, Type 2 diabetes mellitus with other diabetic kidney complication E11.29 ; Chronic kidney disease, stage IV (severe) N18.4 ; Renal osteodystrophy N25.0 ; Anemia of renal disease D63.1 and Essential (primary) hypertension I10 [facility] [address] [address] [id number] [id number] December, [place] [id number] [id number] December, Chronic obstructive pulmonary disease with acute exacerbation J44.1 ; Essential (primary) hypertension I10 ; Low back pain M54.5 and Right knee pain M25.561 [facility] [address] [address] [id number] [id number] Nov, Chronic renal disease, unspecified stage N18.9 ; Essential hypertension I10 ; Type 2 diabetes mellitus with other diabetic kidney complication E11.29 and Chronic obstructive pulmonary disease with acute exacerbation J44.1 [facility] [address] [place] [address] [id number], [place] [id number] Nov, Chronic renal disease, unspecified stage N18.9 ; Hyperlipidemia, unspecified E78.5 and Essential hypertension I10 [address] [id number] Oct, Chronic bronchitis, unspecified chronic bronchitis type J42 and Type 2 diabetes mellitus with diabetic nephropathy E11.21 [address] [id number] Sep, Chronic bronchitis, unspecified chronic bronchitis type J42 ; Essential ( primary) hypertension I10 and Type 2 diabetes mellitus with other diabetic kidney complication E11.29 [address]100[place] [id number] Sep, Chronic obstructive pulmonary disease with acute exacerbation J44.1 [place] [address] [place] [address] [id number] Aug, Type 2 diabetes mellitus with diabetic nephropathy E11.21 ; Chronic kidney disease, stage IV (severe) N18.4 ; Essential (primary) hypertension I10 and Encounter for immunization Z23 [address] [place] [address] [id number] Aug, Chronic kidney disease, stage IV (severe) N18.4 ; Type 2 diabetes mellitus with diabetic nephropathy E11.21 and Type 2 diabetes mellitus with hyperglycemia E11.65 [address] [place] [address] [id number] May, Anemia of renal disease D63.1 ; Essential (primary) hypertension I10 ; Renal osteodystrophy N25.0 ; Proteinuria R80.9 ; Chronic kidney disease, stage IV (severe) N18.4 and Type 2 diabetes mellitus with other diabetic kidney complication E11.29 [place] [id number] [id number] Mar, Type 2 diabetes mellitus with other diabetic kidney complication E11.29 ; Essential hypertension I10 ; Chronic renal disease, unspecified stage N18.9 and TMJ (temporomandibular joint disorder) M26.60 [address] [id number] Jan, Chronic kidney disease, stage IV (severe) N18.4 and Hyperlipidemia, unspecified E78.5 [address] [id number] December, Type 2 diabetes mellitus with other diabetic kidney complication E11.29 ; Abscess L02.91 and Chronic kidney disease, stage IV (severe) N18.4 [facility] [id number], [place] [id number] December, Abscess L02.91 [address] [place] [address] [id number] December, [place] [address] [place] [address] [id number] Oct, Renal osteodystrophy N25.0 ; Chronic kidney disease, stage IV (severe) N18.4 and Vitamin D deficiency E55.9 [facility] [address] [place] [address] [id number] Oct, [address] [place] [address] [id number] Sep, Type 2 diabetes mellitus with other diabetic kidney complication E11.29 ; Essential hypertension I10 and Chronic airway obstruction, not elsewhere classified J44.9 [facility] [address] [place] [address] [id number] Sep, [address] [place] [address] [id number] Aug, [place] [id number] [id number] Jul, [place] [id number] [place] [address] [id number] Jul, [address] [place] [address] [id number] Jul, Chronic kidney disease, stage IV (severe) N18.4 ; Renal osteodystrophy N25.0 and Proteinuria R80.9 [facility] [address] [facility] [id number], [place] [address] Jul, [facility] [address] [id number] [id number] Jun, [facility] [address] [id number] [id number] Jun, [address] [id number] Jun, Diabetes with renal manifestations, type II or unspecified type, uncontrolled 250.42 and Right knee pain M25.561 [facility] [address] [id number] 57535[address]- [address] May, [place] [address] [place] [address] [id number] May, Encounter for immunization Z23 ; Abscess L02.91 and Sprain of right knee, unspecified ligament, initial encounter S83.91XA [place] [address] [place] [address] [id number] May, Abscess L02.91 [facility] [id number] [place] [address] [id number] May, [place] [address] [place] [address] [id number] Apr, Diabetes with renal manifestations, type II or unspecified type, uncontrolled 250.42 and PPV23 (PNEUMOVAX) DX V03.82 [address] [place] [address] [id number] Mar, [place] [address] [place] [address] [id number] Mar, Proteinuria 791.0 ; Renal osteodystrophy 588.0 ; Chronic kidney disease, Stage IV (severe) 585.4 ; Benign essential hypertension 401.1 and Vitamin D deficiency 268.9 [address] [place] [address] [id number] Feb, Avulsion fracture of ankle 824.8 [address] [place] [address] [id number] Feb, [place] [address] [place] [address] [id number] Feb, [address] [place] [address] [id number] Feb, Diabetes with renal manifestations, type II or unspecified type, uncontrolled 250.42 [facility] [id number], [place] [id number] Jan, Diabetes with renal manifestations, type II or unspecified type, uncontrolled 250.42 [facility] [id number] [place] [address] [id number] December, Diabetes with renal manifestations, type II or unspecified type, uncontrolled 250.42 and Unspecified essential hypertension 401.9 [facility] [id number] [place] [address] [id number] December, [facility] [id number] [place] [address] [id number] December, [facility] [id number] [place] [address] [id number] December, Essential hypertension 401.9 [facility] [id number] [place] [address] [id number] Nov, Essential hypertension 401.9 [facility] [id number] [place] [address] [id number] Nov, [facility] [id number] [place] [address] [id number] Nov, [facility] [id number] [place] [address] [id number] Nov, [facility] [id number] [place] [address] 686[address]- 2886 Nov, [facility] [id number] [place] [address] [id number] Nov, [facility] [id number] [place] [address] [id number] Oct, [facility] [id number] [place] [address] 14116- 7381 Oct, [facility] [id number] [place] [address] [id number] Oct, [facility] [id number] [place] [address] 27680- 6892 Oct, [facility] [id number] [place] [address] 788532- 7956 Oct, [facility] [address] [id number] [place] [id number] Oct, [facility] [address] [id number] [place] [id number] Oct, [facility] [place] [facility] [address] [id number] [place] [address]- 4412 Oct, [facility] [place] [facility] [address] [facility] [id number] [place] [address]- 3002 Sep, [facility] [address] [id number] [place] [id number] Sep, [facility] [address] [id number] [place] [id number] Sep, [facility] [place] [facility] [address]00565[address], [place] [address]- 9365 Sep, [facility] [address] [place] [address] [id number] [place] [id number] Aug, [facility] [place] [facility] [address]00565100[place], [place] [address]- 115[address] Aug, [facility] [address] [facility] [id number] [place] [id number] Aug, [facility] [place] [facility] [address], [place] [address]- 3039 Aug, [facility] [address] [facility] [id number], [place] [id number] Aug, [facility] [place] [facility] [address], [place] [address]- 7992 Aug, [facility] [place] [facility] [address] [facility] [id number][place] [address]- 9199 Aug, [facility] [address] [facility] [id number], [place] [id number] Aug, [facility] [place] [facility] [address], [place] [address]- 3[address] Jul, [facility] [place] [facility] [address] [place] [address]- 5546 Jul, [facility] [address] [id number] [place] [id number] Jul, [facility] [place] [facility] [address] [facility] [id number] [place] [address]- 7266 Jul, [facility] [address] [facility] [id number] [place] [id number] Jul, [facility] [place] [facility] [address] [facility] [id number] [place] [address]- 4806 Jul, [facility] [address] [facility] [id number] [place] [id number] Jul, [facility] [place] [facility] [address] [facility] [id number] [place] [address]- 9196 Jul, [facility] [place] [facility] [address] [facility] [id number] [place] [address]- 2056 May, [facility] [address] [id number], [place] [id number] May, [facility] [address] [facility] [id number] [place] [id number] May, [facility] [place] [facility] [address] [facility] [id number] [place] [address]- 3676 May, [facility] [address] [facility] [id number], [place] [id number] Apr, [facility] [place] [facility] [address] [facility] [id number][place] [address]- 0636 Apr, [facility] [address] [facility] [id number], [place] [id number] Mar, [facility] [place] [facility] [address] [facility] [id number], [place] [address]- 6407 Mar, [facility] [place] [facility] [address] [facility] [id number], [place] [address]- 4956 Mar, [facility] [place] [facility] [address] [facility] [id number], [place] [address]- 3119 Mar, [facility] [address] [id number] [place] [id number] Mar, [facility] [address] [id number] [place] [id number] Feb, [facility] [place] [facility] [address] [id number] [place] [address]- 5196 Feb, [facility] [address] [id number] [place] [id number] Jan, [facility] [place] [facility] [address] [id number] [place] [address]- 4837 Jan, [facility] [place] [facility] [address] [id number] [place] [address]- 4764 Jan, [facility] [address] [id number] [place] [id number] Jan, [facility] [address] [id number] [place] [id number] Jan, [facility] [place] [facility] [address] [facility] [id number][place] [address]- 1165 Jan, [facility] [address] [facility] [id number] [place] [id number] December, [facility] [place] [facility] [address] [facility] [id number][place] [address]- 6475 December, [facility] [place] [facility] [address] [facility] [id number] [place] [address]- 0763 Nov, [facility] [place] [facility] [address] [facility] [id number], [place] [address]- 4284 Nov, [facility] [address] [id number] [place] [id number] Nov, [facility] [place] [facility] [address] [facility] [id number] [place] [address]- 2935 Nov, [facility] [address] [facility] [id number] [place] [id number] Oct, [facility] [place] [facility] [address] [facility] [id number], [place] [address]- 9004 Oct, [facility] [address] [facility] [id number] [place] [id number] Oct, [facility] [address] [facility] [id number], [place] [address]- 5406 Oct, [facility] [address] [facility] [id number], [place] [id number] Oct, [facility] [address] [facility] [id number][place] [address]- 1693 Oct, [facility] [address] [facility] [id number], [place] [id number] Oct, [facility] [address] [facility] [id number][place] [address]- 4555 Oct, [facility] [address] [facility] [id number], [place] [id number] Aug, [facility] [place] [facility] [address], [place] [address]- 1006 Aug, [facility] [address] [id number], [place] [id number] Jul, [facility] [place] [facility] [address] [id number] [address]- 4334 Jul, [facility] [id number], [place] [id number] Jun, [facility] [place] [facility] [address]65100[place], [place] [address]- 3283 Jun, [facility] [place] [facility] [address] [facility] [id number][place] [address]- 5695 Jun, [facility] [address] [facility] [id number], [place] [id number] Jun, [facility] [address] [facility] [id number], [place] [id number] May, [facility] [place] [facility] [address] [facility] [id number], [place] [address]- 3066 May, [facility] [place] [facility] [address] [id number] [address]- 4917 May, [facility] [address] [id number] [place] [id number] May, [facility] [address] [facility] [id number], [place] [address]- 5396 May, [facility] [address] [id number], [place] [id number] May, [facility] [address] [facility] [id number][place] [address]- 2129 May, [facility] [address] [id number], [place] [id number] May, [facility] [address] [facility] [id number][place] [address]- 1760 Apr, [facility] [place] [facility] [address] [facility] [id number][place] [address]- 3885 Apr, [facility] [address] [facility] [id number], [place] 174600517 Apr, [facility] [place] [facility] [address] [facility] [id number], [place] [address]- 1689 Apr, [facility] [address]00565100[place], [place] [address]- 9312 Mar, [facility] [address] [id number], [place] [id number] Mar, [facility] [address] [id number], [place] [id number] Feb, [facility] [address] [id number], [place] 237613854 Feb, [facility] [address] [id number] [place] [id number] Feb, [facility] [address] [id number] [place] [id number] Jan, [facility] [place] [facility] [address] [facility] [id number], [place] [address]- 2546 Jan, [facility] [address] [id number], [place] 350726054 Jan, [facility] [address] [id number] [place] [id number] December, [facility] [address] [facility] [id number][place] [address]- 0927 December, [facility] [address] [id number] [place] [id number] December, [facility] [address] [id number] [place] [id number] December, [facility] [address] [id number] [place] [id number] Nov, [facility] [address] [id number] [place] [id number] Nov, [facility] [address] [facility] [id number] [place] [address] Nov, [facility] [address] [id number] [place] [id number] Nov, [facility] [address] [id number] [place] [id number] Oct, [facility] [address] [id number] [place] [id number] Oct, [facility] [address] [id number] [place] [id number] Oct, [facility] [address] [id number] [place] [id number] Oct, [facility] [address] [id number] [place] [id number] Sep, [facility] [address] [id number] [place] [id number] Sep, [facility] [address] [facility] [id number], [place] [address] Aug, [facility] [address] [facility] [id number], [place] [address] Aug, [facility] [address] [id number] [place] [id number] Aug, [facility] [address] [id number][place] [id number] Aug, [facility] [address] [id number] [place] [id number] Jul, [facility] [address] [id number] [place] [id number] Jul, [facility] [place] [facility] [address] [id number][place] [address] Jul, [facility] [place] [facility] [address] [facility] [id number] [place] [address] Jul, [facility] [place] [address] [id number] [place] [id number] Jul, [facility] [place] [facility] [address] [facility] [id number] [address] Jul, [facility] [place] [address] [facility] [id number] [place] [id number] Jul, [facility] [place] [facility] [address] [facility] [id number][place] [address] Jul, [facility] [place] [facility] [address] [facility] [id number][place] [address] Jul, [facility] [address] [id number][place] [id number] Jul, [facility] [address] [facility] [id number][place] [id number] Jul, [facility] [place] [facility] [address] [facility] [id number][place] [address] Jul, [facility] [address] [facility] [id number][place] [id number] Jun, [facility] [place] [facility] [address] [facility] [id number] [address] Jun, [facility] [place] [facility] [address] [facility] [id number][place] [address] Jun, [facility] [address] [facility] [id number][place] [id number] Jun, [facility] [place] [facility] [address] [facility] [id number][place] [address] Jun, [facility] [place] [facility] [address] [id number][place] [address] Jun, [facility] [address] [id number][place] [id number] Jun, [facility] [address] [facility] [id number][place] [address] Jun, [facility] [address] [id number][place] [id number] Jun, [facility] [address] [id number] [address] Jun, [facility] [address] [id number][place] [id number] May, [facility] [address] [facility] [id number][place] [address] Apr, [facility] [address] [facility] [id number] [address] Apr, [facility] [address] [id number][place] [id number] Apr, [facility] [address] [id number][place] [id number] Apr, [facility] [address] [id number][place] [id number] Apr, [facility] [address] [id number][place] [address] Apr, [facility] [address] [id number], [place] [id number] Apr, [facility] [address] [id number] [place] [id number] Mar, [facility] [address] [id number] [place] [id number] Mar, [facility] [address] [id number][place] [id number] Mar, [facility] [address] [id number], [place] [id number] Mar, [facility] [address] [id number] [id number] Mar, [facility] [place] [address] [id number] [place] [id number] Mar, [facility] [address] [id number] [place] [id number] Mar, [facility] [address] [id number] [place] [id number] Feb, [facility] [address] [id number] [place] [id number] Feb, [facility] [address] [id number] [place] [id number] Jan, [facility] [address] [id number] [place] [id number] Jan, [facility] [address] [id number] [place] [id number] Jan, [facility] [address] [id number] [place] [id number] Jan, [facility] [address] [id number] [place] [id number] Jan, [facility] [address] [id number] [place] [id number] Jan, [facility] [address] [id number] [place] [id number] December, [facility] [address] [id number] [place] [id number] Nov, [facility] [address] [id number] [place] [id number] Oct, [facility] [address] [id number] [place] [id number] Oct, [facility] [address] [id number] [place] [id number] Oct, [facility] [address] [facility] [id number], [place] [address] Oct, [facility] [address] [id number] [place] [id number] Oct, [facility] [address] [id number] [place] [id number] Oct, [facility] [address] [id number] [place] [id number] Oct, [facility] [address] [id number] [place] [id number] Oct, [facility] [address] [id number] [place] [id number] Oct, [facility] [address] [id number] [place] [id number] Oct, [facility] [address] [id number] [place] [id number] Sep, [facility] [address] [facility] [id number], [place] [address] Sep, [facility] [address] [id number] [place] [id number] Sep, [facility] [address] [id number] [place] [id number] Aug, [facility] [address] [id number] [place] [id number] Aug, [facility] [address] [id number] [place] [id number] Aug, [facility] [place] [facility] [id number], [place] [address] [address] Aug, [facility] [place] [facility] [id number] Jul, [facility] [place] [facility] [id number], [place] 44[address]- [address] Jul, [facility] [place] [facility] [id number], [place] 11844075- [address] Jul, [facility] [place] [facility] [address] [id number] [address] Jul, [facility] [place] [facility] [address]00565100[place], [place] [address] Jun, [facility] [place] [facility] [address] [id number], [place] [address] Jun, [facility] [address] [id number] [place] [address] May, [facility] [place] [facility] [address] [id number] [place] [address] May, [facility] [place] [facility] [address] [id number] [place] [address] December, [facility] [place] [facility] [address] [id number] [place] [address] December, [facility] [address] [id number] [place] [address]- [address]188 Aug, [facility] [place] [facility] [address] [id number] [place] [address]- [address] 29 Jul, 2010 [facility] [address] [id number] [place] [address] Jul, [facility] [place] [facility] [address] [id number] [place] [address]994 Jul, [facility] [place] [facility] [address] [id number] [place] [address]- 5047 Jul, [facility] [place] [facility] [address] [id number] [place] [address]- [address] 16 Jul, 2010 [facility] [place] [facility] [address] [id number] [place] [address] 2549 Jul, [facility] [place] [facility] [address] [id number] [place] [address]- 2549 30 Jun, 2010 [facility] [place] [facility] [address] [id number] [place] [address] 2547 30 Jun, 2010 [facility] [place] [facility] [address] [id number] [place] [address]- [address]47 29 Jun, 2010 [facility] [place] [facility] [address] [id number] [place] [address]- [address]321 23 Jun, 2010 [facility] [place] [facility] [address] [id number] [address] Jun, [facility] [id number] May, [facility] [id number], [place] [address] December, [facility] [id number], [place] [address] December, [facility] [id number], [place] [address] Oct, [facility] [id number] [place] [address]- [address] Jul, [facility] [id number], [place] [address]- [address] Jul, [facility] [id number] [place] [address] Jul, [facility] [id number], [place] [address]- [address] Jun, [facility] [id number], [place] [address]- [address] May, [facility] [address] [id number], [place] [address] Jun, IMMUNIZATIONS No Known Immunizations SOCIAL HISTORY Never Assessed REASON FOR VISIT Diabetes follow up Laurence JACOBSEN PLAN OF CARE Activity Details Follow Up 3 Months Reason:dm VITAL SIGNS Height 54 in 2017-11-13 Weight 313.8 lbs 2017-11-13 Temperature 98.2 degrees Fahrenheit 2017-11-13 Heart Rate 93 bpm 2017-11-13 Respiratory Rate 22 2017-11-13 Oximetry 99 % 2017-11-13 BMI 75.65 kg/m2 2017-11-13 Blood pressure systolic 122 mmHg 2017-11-13 Blood pressure diastolic 78 mmHg 2017-11-13 MEDICATIONS Medication Instructions Dosage Frequency Start Date End Date Duration Status Lantus 100 UNIT/ML Subcutaneous 2 times a day 58 units 12h Active Pepcid 20 mg Orally 2 times a day TAKE 1 TABLET BY MOUTH ONCE DAILY AT BEDTIME... 12h Active Sodium Bicarbonate 650 mg Orally 3 times a day 1 tablet 8h Active Zemplar 1 MCG 1 capsule Active Loratadine 10 MG TAKE ONE (1) TABLET BY MOUTH DAILY... 90 Active Iron Supplement 325 (65 Fe) MG Orally twice a day 2 tablet in am and 1 tab at hs 12h Active Eliquis 5 mg Orally 2 times a day 1 tablet 12h Active Aspirin 81 81 MG Orally Once a day 1 tablet 24h Active Levemir 100 UNIT/ML Subcutaneous 2 times a day 62 un am 58 units 12h Sep Active Metoprolol Tartrate 25 MG Orally every 8 hours 1 tablet with food 8h Active Spiriva HandiHaler 18 MCG Inhalation Once a day 1 capsule 24h Active Hydrocodone-Acetaminophen 5-325 MG Orally every 4 hrs, prn 1-2 tablet as needed Active Furosemide 40 mg Orally 2 times a day 1 tablet 12h Active Mevacor 20 MG TAKE (1) TABLET BY MOUTH ONCE DAILY WITH A MEAL. Active Glucometer as directed Aug, Active Sertraline HCl 100 MG Orally Once a day 1 tablet 24h Active Oxygen & Tubing by inhalation route 13/03 2 / nc w protable O2 and conserving device Oct, Active Fluticasone Furoate-Vilanterol 200-25 MCG/INH Inhalation Once a day 1 puff 24h Active Nexium 40 MG TAKE ONE (1) CAPSULE BY MOUTH TWICE DAILY... 90 Active Bathtub Safety Rail - as directed December, Active Test strips 1 subcutaneously 2 times a day as directed 12h Aug, Active Amlodipine Besylate 10 mg Orally Once a day 1 tablet 24h 0 Active HydrALAZINE HCl 50 mg Orally every 8 hours 1 1/2 tablets 8h Active Oxybutynin Chloride 5 MG Orally 3 times a day 1 tablet 8h Active Vitamin D (Ergocalciferol) 92219 UNIT Orally twice a month 1 capsule Active Acetaminophen 325 MG Orally every 4 hrs 1 capsule as needed 4h Active Bath/Shower Seat - as directed December, Active ProAir HFA 108 (90 Base) MCG/ACT Inhalation every 4 hrs 2 puffs as needed 4h Active Clonidine HCl 0.1 MG Orally Once a day 1 tablet at bedtime 24h Active RESULTS Name Result Date Reference Range A1C (IN HOUSE) 2017-11-13 A1C IN HOUSE 7.7 4.3 - 5.6 % Previous A1c 5.6 Lot [id number] Exp date 07/09 PROCEDURES Procedure Date Ordered Result Body Site GLYCATED HEMOGLOBIN TEST November 13, 2017 [facility] VISIT ESTABLISHED PATIENT November 13, 2017 INSTRUCTIONS MEDICATIONS ADMINISTERED No Known Medications [...]
--- OUTSIDE RECORDS SUMMARY | 2018-07-11 11:16 | XMS REPORT ---
Author Author JOSEP GONG [facility] Address [address] [place] [address] Care Team Providers Care Judicial Reporter Name Role Phone JOSEP GONG Unavailable PROBLEMS Type Condition ICD9-CM Code VNQ66-ZY Code Onset Dates Condition Status SNOMED Code Problem Chronic bronchitis, unspecified chronic bronchitis type J42 Active 01535107 Problem Vitamin D deficiency, unspecified E55.9 Active 63838579 Problem Chronic obstructive pulmonary disease with acute exacerbation J44.1 Active 234610145 Problem Gastric reflux K21.9 Active 115519373 Problem Right knee pain M25.561 Active 52533334 Problem Paroxysmal atrial fibrillation I48.0 Active 643141880 Problem Sprain of right knee, unspecified ligament, initial encounter S83.91XA Active 53676046 Problem Abscess L02.91 Active 523279628 Problem Obesity, unspecified E66.9 Active 45255834685930 Problem Chronic obstructive pulmonary disease, unspecified COPD type J44.9 Active 89413218 Problem Chronic congestive heart failure, unspecified heart failure type I50.9 Active 44500768 Problem Body mass index (BMI) of 40.0-44.9 in adult Z68.41 Active 921997140 Problem Hyperlipidemia, unspecified E78.5 Active 06483535 Problem Chronic renal disease, unspecified stage N18.9 Active 498843562 Problem Type 2 diabetes mellitus with other diabetic kidney complication E11.29 Active 544031809 Problem Essential hypertension I10 Active 97641779 Problem Proteinuria R80.9 Active 38678797 Problem Renal osteodystrophy N25.0 Active 88745461 Problem Chronic kidney disease, stage IV (severe) N18.4 Active 064310036 Problem Essential (primary) hypertension I10 Active 31284952 Problem Venous (peripheral) insufficiency I87.2 Active 88833142 Problem Anemia of renal disease D63.1 Active 922299566 Problem Type 2 diabetes mellitus with diabetic nephropathy E11.21 Active 241506483 ALLERGIES No Information ENCOUNTERS Encounter Location Date Diagnosis [facility] [id number] [place] [id number] Mar, [facility] [address] [id number] Mar, [facility] [address] [id number] [id number] Feb, [facility] [id number] [place] [address] [id number] Feb, Type 2 diabetes mellitus with other diabetic kidney complication E11.29 [facility] [address] [address] Jan, Body mass index (BMI) 70 or greater, adult Z68.45 and Type 2 diabetes mellitus with other diabetic kidney complication E11.29 [facility] [address] [id number] Nov, Body mass index (BMI) 70 or greater, adult Z68.45 ; Chronic obstructive pulmonary disease, unspecified COPD type J44.9 ; Chronic kidney disease, stage IV (severe) N18.4 and Gastric reflux K21.9 [facility] [address] [address] Oct, Body mass index (BMI) 70 or greater, adult Z68.45 ; Type 2 diabetes mellitus with other diabetic kidney complication E11.29 ; Chronic obstructive pulmonary disease with acute exacerbation J44.1 and Paroxysmal atrial fibrillation I48.0 [address] [id number] Oct, [address] [address] Oct, Type 2 diabetes mellitus with diabetic nephropathy E11.21 ; Chronic renal disease, unspecified stage N18.9 ; Chronic congestive heart failure, unspecified heart failure type I50.9 and Chronic obstructive pulmonary disease with acute exacerbation J44.1 [facility] [address] [id number] Sep, [address] [address] Sep, [address] [id number] 08 Sep, 2017 [facility] [id number] [place] [address]- 2546 Sep, Type 2 diabetes mellitus with diabetic nephropathy E11.21 [id number] [place] [address] [id number] Aug, Influenza J11.1 and Essential (primary) hypertension I10 [facility] [address] [address] Aug, [id number] [place] [address] [id number] Jul, Type 2 diabetes mellitus with diabetic nephropathy E11.21 ; Essential ( primary) hypertension I10 and Chronic obstructive pulmonary disease, unspecified COPD type J44.9 [facility] [address] [id number] Jun, Dental caries K02.[address] [id number] May, Cough R05 ; Chronic obstructive pulmonary disease, unspecified COPD type J44.9 ; Shortness of breath R06.02 ; Obesity, unspecified E66.9 ; Body mass index (BMI) of 40.0-44.9 in adult Z68.41 and Encounter for immunization Z23 [facility] [address] [id number] May, Dental examination Z01.20 [id number] [place] [address] [id number] May, Essential hypertension I10 [address] [id number] [place] [address] [id number] Apr, Anemia of renal disease D63.1 ; Type 2 diabetes mellitus with other diabetic kidney complication E11.29 ; Vitamin D deficiency, unspecified E55.9 and Chronic renal disease, unspecified stage N18.9 [facility] [id number] [place] [address]20- 2546 Mar, [address] [address] Mar, Type 2 diabetes mellitus with other diabetic kidney complication E11.29 ; Essential hypertension I10 ; Chronic renal disease, unspecified stage N18.9 and Chronic obstructive pulmonary disease with acute exacerbation J44.1 [facility] [id number] [id number] Feb, [facility] [id number] [place] [address] [id number] Feb, Chronic renal disease, unspecified stage N18.9 ; Essential (primary) hypertension I10 and Type 2 diabetes mellitus with other diabetic kidney complication E11.29 [facility] [id number] [place] [address] [id number] Feb, Type 2 diabetes mellitus with other diabetic kidney complication E11.29 ; Chronic kidney disease, stage IV (severe) N18.4 ; Renal osteodystrophy N25.0 ; Anemia of renal disease D63.1 and Essential (primary) hypertension I10 [facility] [id number] [place] [address] [id number] December, [facility] [id number] [place] [address] [id number] December, Chronic obstructive pulmonary disease with acute exacerbation J44.1 ; Essential (primary) hypertension I10 ; Low back pain M54.5 and Right knee pain M25.561 [facility] [id number] [place] [address] [id number] Nov, Chronic renal disease, unspecified stage N18.9 ; Essential hypertension I10 ; Type 2 diabetes mellitus with other diabetic kidney complication E11.29 and Chronic obstructive pulmonary disease with acute exacerbation J44.1 [facility] [id number], [place] [id number] Nov, Chronic renal disease, unspecified stage N18.9 ; Hyperlipidemia, unspecified E78.5 and Essential hypertension I10 [facility] [id number] [place] [address] [id number] Oct, Chronic bronchitis, unspecified chronic bronchitis type J42 and Type 2 diabetes mellitus with diabetic nephropathy E11.21 [facility] [id number] [place] [address] [id number] Sep, Chronic bronchitis, unspecified chronic bronchitis type J42 ; Essential ( primary) hypertension I10 and Type 2 diabetes mellitus with other diabetic kidney complication E11.29 [address] [place] [address] [id number] Sep, Chronic obstructive pulmonary disease with acute exacerbation J44.[address] [place] [address] [id number] Aug, Type 2 diabetes mellitus with diabetic nephropathy E11.21 ; Chronic kidney disease, stage IV (severe) N18.4 ; Essential (primary) hypertension I10 and Encounter for immunization Z23 [address] [place] [address] [id number] Aug, Chronic kidney disease, stage IV (severe) N18.4 ; Type 2 diabetes mellitus with diabetic nephropathy E11.21 and Type 2 diabetes mellitus with hyperglycemia E11.65 [address] [place] [address] [id number] May, Anemia of renal disease D63.1 ; Essential (primary) hypertension I10 ; Renal osteodystrophy N25.0 ; Proteinuria R80.9 ; Chronic kidney disease, stage IV (severe) N18.4 and Type 2 diabetes mellitus with other diabetic kidney complication E11.29 [address] [place] [address] [id number] Mar, Type 2 diabetes mellitus with other diabetic kidney complication E11.29 ; Essential hypertension I10 ; Chronic renal disease, unspecified stage N18.9 and TMJ (temporomandibular joint disorder) M26.[address] [place] [address] [id number] Jan, Chronic kidney disease, stage IV (severe) N18.4 and Hyperlipidemia, unspecified E78.5 [id number] [place] [address] [id number] December, Type 2 diabetes mellitus with other diabetic kidney complication E11.29 ; Abscess L02.91 and Chronic kidney disease, stage IV (severe) N18.[address] [place] [address] [id number] December, Abscess L02.91 [address] [place] [address] [id number] December, [id number] [place] [address] [id number] Oct, Renal osteodystrophy N25.0 ; Chronic kidney disease, stage IV (severe) N18.4 and Vitamin D deficiency E55.9 [id number] [place] [address] [id number] Oct, [id number] [place] [address] [id number] Sep, Type 2 diabetes mellitus with other diabetic kidney complication E11.29 ; Essential hypertension I10 and Chronic airway obstruction, not elsewhere classified J44.9 [id number] [place] [address] [id number] Sep, [id number] [place] [address] [id number] Aug, [id number] [place] [address] [id number] Jul, [id number] [place] [address] [id number] Jul, [id number] [place] [address] [id number] Jul, Chronic kidney disease, stage IV (severe) N18.4 ; Renal osteodystrophy N25.0 and Proteinuria R80.9 [address] [place] [id number] [place] [address] 65[address]- 2546 Jul, [facility] [address] [id number] [id number] Jun, [facility] [id number] [place] [address] [id number] Jun, [id number] [place] [address] [id number] Jun, Diabetes with renal manifestations, type II or unspecified type, uncontrolled 250.42 and Right knee pain M25.561 [place] [place] [address] [place] [address] May, [address] [place] [address] [id number] May, Abscess L02.91 ; Encounter for immunization Z23 and Sprain of right knee, unspecified ligament, initial encounter S83.91XA [address] [place] [address] [id number] May, Abscess L02.[address] [id number] [id number] May, [address] [place] [address] [id number] Apr, Diabetes with renal manifestations, type II or unspecified type, uncontrolled 250.42 and PPV23 (PNEUMOVAX) DX V03.82 [id number] [place] [address] [id number] Mar, [id number] [place] [address] [id number] Mar, Proteinuria 791.0 ; Renal osteodystrophy 588.0 ; Chronic kidney disease, Stage IV (severe) 585.4 ; Benign essential hypertension 401.1 and Vitamin D deficiency 268.9 [id number] [place] [address] [id number] Feb, Avulsion fracture of ankle 824.8 [id number] [place] [address] [id number] Feb, [id number] [place] [address] [id number] Feb, [address] [place] [address] [id number] Feb, Diabetes with renal manifestations, type II or unspecified type, uncontrolled 250.42 [id number] [place] [address] [id number] Jan, Diabetes with renal manifestations, type II or unspecified type, uncontrolled 250.[address] [place] [address] [id number] December, Diabetes with renal manifestations, type II or unspecified type, uncontrolled 250.42 and Unspecified essential hypertension 401.9 [facility] [id number][place] [id number] December, [facility] [id number] [place] [address] [id number] December, [facility] [id number][place] [id number] December, Essential hypertension 401.9 [facility] [id number] [place] [address] [id number] Nov, Essential hypertension 401.9 [facility] [id number] [place] [address] [id number] Nov, [facility] [id number] [place] [address] [id number] Nov, [facility] [id number] [place] [address] [id number] Nov, [facility] [id number] [place] [address] 78788- 2546 Nov, [facility] [address] [place] [address] 83114- 2546 Nov, [facility] [id number] [place] [address] [id number] Oct, [facility] [id number] [place] [address] 32311- 2546 Oct, [facility] [id number], [place] [id number] Oct, [facility] [id number] [place] [address] 40252- 2546 Oct, [facility] [id number] [place] [address] 81427- 2546 Oct, [facility] [id number], [place] [id number] Oct, [facility] [id number], [place] [id number] Oct, [facility] [id number] [place] [address] 57506- 2546 Oct, [facility] [place] [facility] [address] [facility] [id number][place] [address]- 2546 Sep, [facility] [address] [facility] [id number] [place] [id number] Sep, [facility] [address] [id number] [place] [id number] Sep, [facility] [place] [facility] [address]005[address], [place] [address]- 2546 Sep, [facility] [address] [id number] [place] [id number] Aug, [facility] [place] [facility] [address] [id number], [place] [address]- 3176 Aug, [facility] [id number], [place] [id number] Aug, [facility] [place] [facility] [address]005[address], [place] [address]- 9986 Aug, [facility] [id number], [place] [id number] Aug, [facility] [place] [facility] [address]00565[address], [place] [address]- 8936 Aug, [facility] [place] [facility] [address] [id number], [place] [address]- 8646 Aug, [facility] [address] [id number] [id number] Aug, [facility] [place] [facility] [address] [id number], [place] [address]- 8074 Jul, [facility] [place] [facility] [address] [id number], [place] [address]- 5576 Jul, [facility] [address] [id number], [place] [id number] Jul, [facility] [place] [facility] [address] [id number], [place] [address]- 2036 Jul, [facility] [address] [id number] [place] [id number] Jul, [facility] [place] [facility] [address] [id number] [place] [address]- 6506 Jul, [facility] [address] [id number] [place] [id number] Jul, [facility] [place] [facility] [address] [facility] [id number][place] [address]- 7626 Jul, [facility] [place] [facility] [address] [id number] [place] [address]- 2896 May, [facility] [address] [id number] [place] [id number] May, [facility] [address] [id number] [place] [id number] May, [facility] [place] [facility] [address] [facility] [id number][place] [address]- 2382 May, [facility] [address] [facility] [id number], [place] [id number] Apr, [facility] [place] [facility] [address] [facility] [id number], [place] [address]- 4886 Apr, [facility] [address] [facility] [id number], [place] [id number] Mar, [facility] [place] [facility] [address] [facility] [id number], [place] [address]- 8823 Mar, [facility] [place] [facility] [address] [facility] [id number], [place] [address]- 0936 Mar, [facility] [place] [facility] [address] [facility] [id number], [place] [address]- 1179 Mar, [facility] [address] [id number] [place] [id number] Mar, [facility] [address] [facility] [id number] [place] [id number] Feb, [facility] [place] [facility] [address] [facility] [id number], [place] [address]- 5973 Feb, [facility] [address] [id number] [place] [id number] Jan, [facility] [place] [facility] [address] [facility] [id number], [place] [address]- 0256 Jan, [facility] [place] [facility] [address] [facility] [id number], [place] [address]- 5526 Jan, [facility] [address] [facility] [id number] [place] [id number] Jan, [facility] [address] [facility] [id number] [place] [id number] Jan, [facility] [place] [facility] [address] [facility] [id number], [place] [address]- 7686 Jan, [facility] [address] [facility] [id number] [place] [id number] December, [facility] [place] [facility] [address] [facility] [id number], [place] [address]- 6486 December, [facility] [place] [facility] [address] [facility] [id number], [place] [address]- 6755 Nov, [facility] [place] [facility] [address] [facility] [id number], [place] [address]- 1656 Nov, [facility] [address] [facility] [id number], [place] [id number] Nov, [facility] [place] [facility] [address] [facility] [id number], [place] [address]- 5286 Nov, [facility] [address] [facility] [id number], [place] [id number] Oct, [facility] [place] [facility] [address] [facility] [id number], [place] [address]- 6986 Oct, [facility] [address] [facility] [id number] [place] [id number] Oct, [facility] [place] [facility] [address] [facility] [id number], [place] [address]- 2106 Oct, [facility] [address] [facility] [id number], [place] 145917597 Oct, [facility] [place] [facility] [address] [facility] [id number], [place] [address]- 2546 Oct, [facility] [address] [facility] [id number] [place] [id number] Oct, [facility] [place] [facility] [address] [facility] [id number], [place] [address]- 2546 Oct, [facility] [address] [facility] [id number] [place] [id number] Aug, [facility] [place] [facility] [address] [facility] [id number] [place] [address]- 8966 Aug, [facility] [address] [facility] [id number], [place] [id number] Jul, [facility] [place] [facility] [address] [facility] [id number], [place] [address]- 2546 Jul, [facility] [address] [id number], [place] [id number] Jun, [facility] [place] [facility] [address] [facility] [id number], [place] [address]- 4386 Jun, [facility] [place] [facility] [address] [facility] [id number], [place] [address]- 8336 Jun, [facility] [address] [facility] [id number], [place] [id number] Jun, [facility] [address] [facility] [id number], [place] [id number] May, [facility] [place] [facility] [address] [facility] [id number], [place] [address]- 2116 May, [facility] [place] [facility] [address] [facility] [id number], [place] [address]- 2247 May, [facility] [address] [facility] [id number], [place] [id number] May, [facility] [place] [facility] [address] [facility] [id number], [place] [address]- 2486 May, [facility] [address] [facility] [id number], [place] [id number] May, [facility] [place] [facility] [address] [facility] [id number] [place] [address]- 2546 May, [facility] [address] [id number] [place] [id number] May, [facility] [place] [facility] [address] [facility] [id number], [place] [address]- 0064 Apr, [facility] [place] [facility] [address] [facility] [id number], [place] [address]- 6336 Apr, [facility] [address] [id number] [place] [id number] Apr, [facility] [place] [facility] [address] [facility] [id number] [place] [address]- 2546 Apr, [facility] [place] [facility] [address] [id number], [place] [address]- 8103 Mar, [facility] [address] [id number], [place] 340781706 Mar, [facility] [address] [id number] [place] [id number] Feb, [facility] [address] [id number] [place] [id number] Feb, [facility] [address] [id number], [place] 152200038 Feb, [facility] [address] [id number], [place] 532904486 Jan, [facility] [address] [facility] [id number], [place] [address]- 2546 Jan, [facility] [address] [id number] [place] [id number] Jan, [facility] [address] [id number], [place] [id number] December, [facility] [place] [facility] [address] [facility] [id number], [place] [address]- 1976 December, [facility] [address] [id number], [place] [id number] December, [facility] [address] [id number] [place] [id number] December, [facility] [place] [address] [id number] [place] [id number] Nov, [facility] [address] [id number] [place] [id number] Nov, [facility] [address] [facility] [id number], [place] [address] Nov, [facility] [place] [address] [id number] [place] [id number] Nov, [facility] [place] [address] [id number] [place] [id number] Oct, [facility] [address] [id number] [place] [id number] Oct, [facility] [address] [id number] [place] [id number] Oct, [facility] [address] [id number] [place] [id number] Oct, [facility] [address] [id number] [place] [id number] Sep, [facility] [address] [id number] [place] [id number] Sep, [facility] [id number], [place] [address] Aug, [facility] [address] [facility] [id number], [place] [address] Aug, [facility] [address] [id number] [place] [id number] Aug, [facility] [address] [id number] [place] [id number] Aug, [facility] [address] [id number] [place] [id number] Jul, [facility] [address] [id number] [place] [id number] Jul, [facility] [address] [facility] [id number], [place] [address] Jul, [facility] [address] [facility] [id number], [place] [address] Jul, [facility] [place] [address] [facility] [id number][place] [id number] Jul, [facility] [address] [facility] [id number], [place] [address]- [id number] Jul, [facility] [place] [address] [facility] [id number] [place] [id number] Jul, [facility] [place] [facility] [address] [facility] [id number], [place] [address] Jul, [facility] [place] [facility] [address] [facility] [id number] [place] [address] Jul, [facility] [place] [address] [id number] [id number] Jul, [facility] [place] [id number] [place] [id number] Jul, [facility] [place] [facility] [address] [facility] [id number], [place] [address] Jul, [facility] [place] [address] [facility] [id number][place] [id number] Jun, [facility] [place] [facility] [address] [facility] [id number], [place] [address] Jun, [facility] [place] [facility] [address] [facility] [id number], [place] [address] Jun, [facility] [place] [address] [facility] [id number][place] [id number] Jun, [facility] [place] [facility] [address] [facility] [id number], [place] [address] Jun, [facility] [place] [facility] [address] [facility] [id number], [place] [address] Jun, [facility] [place] [address] [facility] [id number], [place] [id number] Jun, [facility] [place] [facility] [address] [facility] [id number], [place] [address] Jun, [facility] [place] [address] [id number], [place] [id number] Jun, [facility] [place] [facility] [facility] [address] [facility] [id number], [place] [address] Jun, [facility] [place] [address] [id number], [place] [id number] May, [facility] [address] [facility] [id number], [place] [address] Apr, [facility] [address] [facility] [id number], [place] [address] Apr, [facility] [place] [address] [id number], [place] [id number] Apr, [facility] [place] [address] [id number], [place] [id number] Apr, [facility] [place] [address] [id number], [place] [id number] Apr, [facility] [place] [address] [id number], [place] [id number] Apr, [facility] [place] [address] [id number] [place] [id number] Apr, [facility] [address] [id number], [place] [id number] Mar, [facility] [address] [id number], [place] [id number] Mar, [facility] [place] [address] [id number], [place] [id number] Mar, [facility] [place] [address] [id number], [place] [id number] Mar, [facility] [place] [address] [id number] [place] [id number] Mar, [facility] [place] [address] [id number], [place] [id number] Mar, [facility] [place] [address] [id number], [place] [id number] Mar, [facility] [place] [address] [id number] [place] [id number] Feb, [facility] [place] [address] [id number] [place] [id number] Feb, [facility] [place] [address] [id number] [place] [id number] Jan, [facility] [place] [address] [id number] [place] [id number] Jan, [facility] [place] [address] [id number] [place] [id number] Jan, [facility] [place] [address] [id number] [place] [id number] Jan, [facility] [place] [address] [id number] [place] [id number] Jan, [facility] [place] [address] [id number] [place] [id number] Jan, [facility] [place] [address] [id number] [place] [id number] December, [facility] [place] [address] [id number] [place] [id number] Nov, [facility] [place] [address] [id number] [place] [id number] Oct, [facility] [place] [address] [id number] [place] [id number] Oct, [facility] [place] [address] [id number] [place] [id number] Oct, [facility] [address] [id number], [place] [address] Oct, [facility] [place] [address] [id number] [place] [id number] Oct, [facility] [place] [address] [id number] [place] [id number] Oct, [facility] [place] [address] [id number] [place] [id number] Oct, [facility] [place] [address] [id number] [place] [id number] Oct, [facility] [place] [address] [id number] [place] [id number] Oct, [facility] [place] [address] [id number] [place] [id number] Oct, [facility] [place] [address] [id number] [place] [id number] Sep, [facility] [address] [facility] [id number], [place] [address]46 Sep, [facility] [place] [address] [id number] [place] [id number] Sep, [facility] [place] [address] [id number] [place] [id number] Aug, [facility] [place] [address] [id number] [place] [id number] Aug, [facility] [place] [address] [id number] [place] [id number] Aug, [facility] [id number], [place] [address] Aug, [facility] [place] [facility] [id number], [place] [address] Jul, [facility] [place] [facility] [address] [id number] [address] Jul, [facility] [place] [facility] [id number], [place]- [address] Jul, [facility] [place] [facility] [id number], [place] [address] Jul, [facility] [place] [facility] [address] [id number], [place] [address] Jun, [facility] [place] [facility] [address] [id number], [place] [address] Jun, [facility] [place] [facility] [id number], [place] [address]698 May, [facility] [place] [facility] [id number], [place] [address] May, [facility] [place] [facility] [address] [id number] [place] [address]- [address]95 December, [facility] [address] [id number] [place] [address]- 2116 December, [facility] [place] [facility] [address] [id number] [place] [address] 2546 14 Aug, 2010 [facility] [place] [facility] [address] [id number] [place] [address] 2540 29 Jul, 2010 [facility] [place] [facility] [address] [id number] [place] [address] 2541 28 Jul, 2010 [facility] [place] [facility] [address] [id number] [place] [address]- 5193 23 Jul, 2010 [facility] [place] [facility] [address] [id number] [place] [address]- 9240 16 Jul, 2010 [facility] [place] [facility] [address] [id number] [place] [address]- 1115 16 Jul, 2010 [facility] [place] [facility] [address] [id number] [place] [address] 1980 Jul, [facility] [place] [facility] [address] [id number] [place] [address]- 1269 30 Jun, 2010 [facility] [place] [facility] [address] [id number] [place] [address] 2542 30 Jun, 2010 [facility] [place] [facility] [address] [id number] [place] [address]- 2540 29 Jun, 2010 [facility] [place] [facility] [address] [id number] [place] [address] 2545 23 Jun, 2010 [facility] [place] [facility] [address] [id number] [place] [address] 2546 02 Jun, 2010 [facility] [place] [facility] [address] [id number] [place] [address] 2546 14 May, 2010 [facility] [place] [facility] [address] [id number] [place] [address]- 883 December, [facility] [address] [id number], [place] [address] December, [facility] [id number], [place] [address] Oct, [facility] [id number], [place] [address]- [address] Jul, [facility] [id number] [place] [address]- [address]846 Jul, [facility] [id number] [place] [address]- 4916 Jul, [facility] [id number] [place] [address]- 0086 Jun, [facility] [id number], [place] [address]- [address] May, [facility] [id number], [place] [address]- [address] Jun, IMMUNIZATIONS No Known Immunizations SOCIAL HISTORY Never Assessed REASON FOR VISIT Refill request PLAN OF CARE VITAL SIGNS MEDICATIONS Unknown [...] Medical History chronic pain--Back Medical History Pneumococcal inj--2012 Medical History a-fib Surgical History cholecystectomy 1999 [...]
--- OUTSIDE RECORDS SUMMARY | 2018-07-11 11:17 | XMS REPORT ---
Author Author JOSEP GONG [facility] Address [address] [place] [address] Care Team Providers Care Extractions Technologist Name Role Phone JOSEP GONG Unavailable PROBLEMS Type Condition ICD9-CM Code [id number] Code Onset Dates Condition Status SNOMED Code Problem Chronic bronchitis, unspecified chronic bronchitis type J42 Active 18707113 Problem Vitamin D deficiency, unspecified E55.9 Active 07491801 Problem Chronic obstructive pulmonary disease with acute exacerbation J44.1 Active 548034426 Problem Gastric reflux K21.9 Active 213437848 Problem Right knee pain M25.561 Active 11859175 Problem Paroxysmal atrial fibrillation I48.0 Active 895332014 Problem Sprain of right knee, unspecified ligament, initial encounter S83.91XA Active 24666076 Problem Abscess L02.91 Active 429282936 Problem Obesity, unspecified E66.9 Active 83176951020639 Problem Chronic obstructive pulmonary disease, unspecified COPD type J44.9 Active 58530451 Problem Chronic congestive heart failure, unspecified heart failure type I50.9 Active 07464739 Problem Body mass index (BMI) of 40.0-44.9 in adult Z68.41 Active 011322673 Problem Hyperlipidemia, unspecified E78.5 Active 92543459 Problem Chronic renal disease, unspecified stage N18.9 Active 412572214 Problem Type 2 diabetes mellitus with other diabetic kidney complication E11.29 Active 671799368 Problem Essential hypertension I10 Active 44194051 Problem Proteinuria R80.9 Active 29862517 Problem Renal osteodystrophy N25.0 Active 74000897 Problem Chronic kidney disease, stage IV (severe) N18.4 Active 815669639 Problem Essential (primary) hypertension I10 Active 81572907 Problem Venous (peripheral) insufficiency I87.2 Active 23719045 Problem Anemia of renal disease D63.1 Active 461850511 Problem Type 2 diabetes mellitus with diabetic nephropathy E11.21 Active 165111221 ALLERGIES Substance Reaction Event Type Date Status Percocet rash Drug Allergy Oct, Active Nubain rash Drug Allergy Oct, Active Lyrica anaphylaxis Drug Allergy Oct, Active Januvia rash Drug Allergy Oct, Active Fluoxetine nausea Drug Allergy Oct, Active Bexarotene rash Drug Allergy Oct, Active IV dye hives Non Drug Allergy Oct, Active ENCOUNTERS Encounter Location Date Diagnosis [id number] [id number] Mar, [address] [place] [address] [id number] Feb, [address] [place] [address] [id number] Feb, Type 2 diabetes mellitus with other diabetic kidney complication E11.29 [address] [place] [address] [id number] Jan, Body mass index (BMI) 70 or greater, adult Z68.45 and Type 2 diabetes mellitus with other diabetic kidney complication E11.29 [address] [id number] Nov, Body mass index (BMI) 70 or greater, adult Z68.45 ; Chronic obstructive pulmonary disease, unspecified COPD type J44.9 ; Chronic kidney disease, stage IV (severe) N18.4 and Gastric reflux K21.9 [address] [place] [address] [id number] Oct, Body mass index (BMI) 70 or greater, adult Z68.45 ; Type 2 diabetes mellitus with other diabetic kidney complication E11.29 ; Chronic obstructive pulmonary disease with acute exacerbation J44.1 and Paroxysmal atrial fibrillation I48.0 [address] [id number] Oct, [address] [place] [address] [id number] Oct, Type 2 diabetes mellitus with diabetic nephropathy E11.21 ; Chronic renal disease, unspecified stage N18.9 ; Chronic congestive heart failure, unspecified heart failure type I50.9 and Chronic obstructive pulmonary disease with acute exacerbation J44.1 [address] [id number] [place] [address] [id number] Sep, [facility] [id number] [place] [address] [id number] Sep, [facility] [id number] [place] [address] [id number] Sep, [facility] [address] [address] Sep, Type 2 diabetes mellitus with diabetic nephropathy E11.21 [facility] [id number] [place] [address] [id number] Aug, Influenza J11.1 and Essential (primary) hypertension I10 [facility] [address] [address] Aug, [address] [id number] [place] [address] [id number] Jul, Type 2 diabetes mellitus with diabetic nephropathy E11.21 ; Essential ( primary) hypertension I10 and Chronic obstructive pulmonary disease, unspecified COPD type J44.9 [facility] [id number] [place] [address] [id number] Jun, Dental caries K02.9 [address] [place] [id number] [place] [address] [id number] May, Cough R05 ; Chronic obstructive pulmonary disease, unspecified COPD type J44.9 ; Shortness of breath R06.02 ; Obesity, unspecified E66.9 ; Body mass index (BMI) of 40.0-44.9 in adult Z68.41 and Encounter for immunization Z23 [facility] [id number] [place] [address] [id number] May, Dental examination Z01.20 [address] [id number] [place] [address] [id number] May, Essential hypertension I10 [address] [id number] Apr, Anemia of renal disease D63.1 ; Type 2 diabetes mellitus with other diabetic kidney complication E11.29 ; Vitamin D deficiency, unspecified E55.9 and Chronic renal disease, unspecified stage N18.9 [facility] [id number] [address] Mar, [address] [place] [address] [id number] Mar, Type 2 diabetes mellitus with other diabetic kidney complication E11.29 ; Essential hypertension I10 ; Chronic renal disease, unspecified stage N18.9 and Chronic obstructive pulmonary disease with acute exacerbation J44.1 [facility] [address] [id number] Feb, [address] [place] [address] [id number] Feb, Chronic renal disease, unspecified stage N18.9 ; Essential (primary) hypertension I10 and Type 2 diabetes mellitus with other diabetic kidney complication E11.29 [address] [place] [address] [id number] Feb, Type 2 diabetes mellitus with other diabetic kidney complication E11.29 ; Chronic kidney disease, stage IV (severe) N18.4 ; Renal osteodystrophy N25.0 ; Anemia of renal disease D63.1 and Essential (primary) hypertension I10 [address] [id number] December, [address] [place] [address] [id number] December, Chronic obstructive pulmonary disease with acute exacerbation J44.1 ; Essential (primary) hypertension I10 ; Low back pain M54.5 and Right knee pain M25.561 [address] [place] [address] [id number] Nov, Chronic renal disease, unspecified stage N18.9 ; Essential hypertension I10 ; Type 2 diabetes mellitus with other diabetic kidney complication E11.29 and Chronic obstructive pulmonary disease with acute exacerbation J44.1 [address] [place] [address] [id number] Nov, Chronic renal disease, unspecified stage N18.9 ; Hyperlipidemia, unspecified E78.5 and Essential hypertension I10 [address] [place] [address] [id number] Oct, Chronic bronchitis, unspecified chronic bronchitis type J42 and Type 2 diabetes mellitus with diabetic nephropathy E11.21 [address] [id number] Sep, Chronic bronchitis, unspecified chronic bronchitis type J42 ; Essential ( primary) hypertension I10 and Type 2 diabetes mellitus with other diabetic kidney complication E11.29 [place] [id number] [id number] Sep, Chronic obstructive pulmonary disease with acute exacerbation J44.1 [address] [place] [address] [id number] Aug, Type 2 diabetes mellitus with diabetic nephropathy E11.21 ; Chronic kidney disease, stage IV (severe) N18.4 ; Essential (primary) hypertension I10 and Encounter for immunization Z23 [address] [place] [address] [id number] Aug, Chronic kidney disease, stage IV (severe) N18.4 ; Type 2 diabetes mellitus with diabetic nephropathy E11.21 and Type 2 diabetes mellitus with hyperglycemia E11.65 [address] [place] [address] [id number] May, Anemia of renal disease D63.1 ; Essential (primary) hypertension I10 ; Renal osteodystrophy N25.0 ; Proteinuria R80.9 ; Chronic kidney disease, stage IV (severe) N18.4 and Type 2 diabetes mellitus with other diabetic kidney complication E11.29 [address] [id number] Mar, Type 2 diabetes mellitus with other diabetic kidney complication E11.29 ; Essential hypertension I10 ; Chronic renal disease, unspecified stage N18.9 and TMJ (temporomandibular joint disorder) M26.60 [address] [place] [address] [id number] Jan, Chronic kidney disease, stage IV (severe) N18.4 and Hyperlipidemia, unspecified E78.5 [place] [id number] [place] [address] [id number] December, Type 2 diabetes mellitus with other diabetic kidney complication E11.29 ; Abscess L02.91 and Chronic kidney disease, stage IV (severe) N18.4 [facility] [id number] [place] [address] [id number] December, Abscess L02.91 [facility] [id number] [place] [address] [id number] December, [facility] [id number] [place] [address] [id number] Oct, Renal osteodystrophy N25.0 ; Chronic kidney disease, stage IV (severe) N18.4 and Vitamin D deficiency E55.9 [facility] [id number] [place] [address] [id number] Oct, [place] [address] [place] [address] [id number] Sep, Type 2 diabetes mellitus with other diabetic kidney complication E11.29 ; Essential hypertension I10 and Chronic airway obstruction, not elsewhere classified J44.9 [facility] [id number] [place] [address] [id number] Sep, [facility] [address] [place] [address] [id number] Aug, [place] [id number] [place] [address] [id number] Jul, [address] [place] [address] [id number] Jul, [address] [place] [address] [id number] Jul, Chronic kidney disease, stage IV (severe) N18.4 ; Renal osteodystrophy N25.0 and Proteinuria R80.9 [facility] [address] [facility] [id number] [address] Jul, [facility] [address] [id number] [id number] Jun, [facility] [address] [id number] [id number] Jun, [facility] [address] [place] [address] [id number] Jun, Diabetes with renal manifestations, type II or unspecified type, uncontrolled 250.42 and Right knee pain M25.561 [facility] [address], [place] [address] May, [address] [place] [address] [id number] May, Abscess L02.91 ; Encounter for immunization Z23 and Sprain of right knee, unspecified ligament, initial encounter S83.91XA [address] [place] [address] [id number] May, Abscess L02.[id number] [place] [address] [id number] May, [address] [place] [address] [id number] Apr, Diabetes with renal manifestations, type II or unspecified type, uncontrolled 250.42 and PPV23 (PNEUMOVAX) DX V03.82 [address] [place] [address] [id number] Mar, [place] [address] [place] [address] [id number] Mar, Proteinuria 791.0 ; Renal osteodystrophy 588.0 ; Chronic kidney disease, Stage IV (severe) 585.4 ; Benign essential hypertension 401.1 and Vitamin D deficiency 268.9 [place] [id number] [place] [address] [id number] Feb, Avulsion fracture of ankle 824.8 [address] [id number] Feb, [address] [place] [address] [id number] Feb, [address] [place] [address] [id number] Feb, Diabetes with renal manifestations, type II or unspecified type, uncontrolled 250.42 [address] [place] [address] [id number] Jan, Diabetes with renal manifestations, type II or unspecified type, uncontrolled 250.42 [facility] [id number] [place] [id number] December, Diabetes with renal manifestations, type II or unspecified type, uncontrolled 250.42 and Unspecified essential hypertension 401.9 [facility] [id number] [place] [id number] December, [facility] [id number] [place] [id number] December, [facility] [address] [id number] [place] [id number] December, Essential hypertension 401.9 [facility] [id number] [place] [address], [place] [id number] Nov, Essential hypertension 401.9 [facility] [id number] [place] [address] [id number] Nov, [facility] [id number] [place] [id number] Nov, [facility] [id number] [place] [id number] Nov, [facility] [id number] [place] [address]- [address] Nov, [facility] [place] [facility] [address] [id number], [place] [address] Nov, [facility] [id number] [place] [id number] Oct, [facility] [place] [facility] [id number] [place] [address]- 2546 Oct, [facility] [id number] [place] [id number] Oct, [facility] [place] [facility] [id number] [place] [address]- 2546 Oct, [facility] [place] [facility] [id number] [place] [address] 13063- 2546 Oct, [facility] [id number] [place] [address] [id number] Oct, [facility] [address] [id number] [place] [id number] Oct, [facility] [address] [facility] [id number] [place] [address]- [address] Oct, [facility] [place] [facility] [address] [facility] [id number], [place] [address]- 25[address] Sep, [facility] [address] [id number] [place] [id number] Sep, [facility] [address] [id number] [place] [id number] Sep, [facility] [place] [facility] [address] [facility] [id number] [place] [address]- 2546 Sep, [facility] [address] [id number] [place] [id number] Aug, [facility] [place] [facility] [address], [place] [address] Aug, [facility] [address] [id number] [place] [id number] Aug, [facility] [place] [facility] [address] [facility] [id number], [place] [address]- 14[address] Aug, [facility] [address] [facility] [id number] [place] [id number] Aug, [facility] [place] [facility] [address] [facility] [id number], [place] [address]- [address] Aug, [facility] [place] [facility] [address] [facility] [id number], [place] [address]- 25[address] Aug, [facility] [address] [id number] [place] [id number] Aug, [facility] [place] [facility] [address] [facility] [id number], [place] [address]- 6[address] Jul, [facility] [place] [facility] [address] [facility] [id number], [place] [address]- 9[address] Jul, [facility] [address] [facility] [id number] [place] [id number] Jul, [facility] [place] [facility] [address] [id number] [place] [address]- 7956 Jul, [facility] [address] [facility] [id number] [place] [id number] Jul, [facility] [place] [facility] [address] [facility] [id number], [place] [address] Jul, [facility] [address] [id number] [place] [id number] Jul, [facility] [place] [facility] [address] [facility] [id number] [place] [address]- 9763 Jul, [facility] [place] [facility] [address] [facility] [id number] [place] [address]- 0876 May, [facility] [address] [id number] [place] [id number] May, [facility] [address] [id number] [place] [id number] May, [facility] [place] [facility] [address] [facility] [id number], [place] [address]- 7[address] May, [facility] [address] [facility] [id number] [place] [id number] Apr, [facility] [place] [facility] [address] [facility] [id number], [place] [address]- 6[address] Apr, [facility] [address] [facility] [id number] [place] [id number] Mar, [facility] [place] [facility] [address] [facility] [id number], [place] [address]- 4687 Mar, [facility] [place] [facility] [address] [facility] [id number], [place] [address]- 8072 Mar, [facility] [place] [facility] [address] [facility] [id number], [place] [address]- 8[address] Mar, [facility] [address] [id number] [place] [id number] Mar, [facility] [address] [id number] [place] [id number] Feb, [facility] [place] [facility] [address] [id number] [place] [address]- 1616 Feb, [facility] [address] [id number] [place] [id number] Jan, [facility] [place] [facility] [address] [facility] [id number] [place] [address]- 3796 Jan, [facility] [place] [facility] [address] [id number] [place] [address]- 4376 Jan, [facility] [address] [id number] [place] [id number] Jan, [facility] [address] [id number] [place] [id number] Jan, [facility] [place] [facility] [address] [facility] [id number] [place] [address]- 8246 Jan, [facility] [address] [facility] [id number] [place] 035564[address] December, [facility] [place] [facility] [address] [facility] [id number] [place] [address]- 0450 December, [facility] [place] [facility] [address] [facility] [id number], [place] [address]- 8574 Nov, [facility] [place] [facility] [address] [facility] [id number], [place] [address]- 5[address] Nov, [facility] [address] [facility] [id number] [place] [id number] Nov, [facility] [place] [facility] [address] [id number], [place] [address]- 20[address] Nov, [facility] [address] [facility] [id number] [place] [id number] Oct, [facility] [place] [facility] [address] [facility] [id number] [place] [address]- 6416 Oct, [facility] [address] [facility] [id number] [place] [id number] Oct, [facility] [place] [facility] [address] [facility] [id number], [place] [address]- 2546 Oct, [facility] [address] [facility] [id number] [place] 3[address]10465 Oct, [facility] [place] [facility] [address] [facility] [id number], [place] [address]- 2546 Oct, [facility] [address] [facility] [id number] [place] [id number] Oct, [facility] [place] [facility] [address] [facility] [id number], [place] [address]- 2546 Oct, [facility] [address] [facility] [id number] [place] 969546029 Aug, [facility] [place] [facility] [address] [facility] [id number], [place] [address]- 2546 Aug, [facility] [address] [facility] [id number] [place] [id number] Jul, [facility] [place] [facility] [address] [facility] [id number], [place] [address]- 7876 Jul, [facility] [address] [facility] [id number] [place] [id number] Jun, [facility] [place] [facility] [address] [facility] [id number], [place] [address]- 7926 Jun, [facility] [place] [facility] [address] [facility] [id number], [place] [address]- 2546 Jun, [facility] [address] [facility] [id number] [place] [id number] Jun, [facility] [address] [facility] [id number] [place] [id number] May, [facility] [place] [facility] [address] [facility] [id number], [place] [address]- 2546 May, [facility] [place] [facility] [address] [facility] [id number], [place] [address]- 2546 May, [facility] [address] [facility] [id number] [place] [id number] May, [facility] [place] [facility] [address] [facility] [id number], [place] [address]- 7066 May, [facility] [address] [facility] [id number] [place] [id number] May, [facility] [place] [facility] [address] [facility] [id number], [place] [address]- 3766 May, [facility] [address] [facility] [id number] [place] 39[address]179[address] May, [facility] [place] [facility] [address] [facility] [id number], [place] [address]- 6145 Apr, [facility] [place] [facility] [address] [facility] [id number], [place] [address]- 4648 Apr, [facility] [address] [facility] [id number] [place] [id number] Apr, [facility] [address], [place] [address]- 0[address] Apr, [facility] [place] [facility] [address]100[place], [place] [address]- 4026 Mar, [facility] [address] [id number] [place] [id number] Mar, [facility] [address] [id number] [place] [id number] Feb, [facility] [address] [id number] [place] [id number] Feb, [facility] [address] [id number] [place] [id number] Feb, [facility] [address] [id number] [place] [id number] Jan, [facility] [place] [facility] [address] [facility] [id number], [place] [address] Jan, [facility] [address] [id number] [place] [id number] Jan, [facility] [address] [id number] [place] [id number] December, [facility] [place] [facility] [address] [facility] [id number] [place] [address] December, [facility] [address] [id number] [place] [id number] December, [facility] [address] [id number] [place] [id number] December, [facility] [address] [id number] [place] [id number] Nov, [facility] [address] [id number] [place] [id number] Nov, [facility] [address] [id number] [place] [address] Nov, [facility] [address] [id number] [place] [id number] Nov, [facility] [address] [id number] [place] [id number] Oct, [facility] [address] [id number] [place] [id number] Oct, [facility] [address] [id number] [place] [id number] Oct, [facility] [address] [id number] [place] [id number] Oct, [facility] [address] [id number] [place] [id number] Sep, [facility] [address] [id number] [place] [id number] Sep, [facility] [address] [facility] [id number], [place] [address] Aug, [facility] [address] [facility] [id number], [place] [address] Aug, [facility] [address] [id number] [place] [id number] Aug, [facility] [address] [id number] [place] [id number] Aug, [facility] [address] [id number] [place] [id number] Jul, [facility] [address] [id number] [place] [id number] Jul, [facility] [place] [facility] [address] [facility] [id number] [place] Jul, [facility] [place] [facility] [address] [facility] [id number], [place] [address] Jul, [facility] [place] [address] [facility] [id number] [place] [id number] Jul, [facility] [place] [facility] [address] [facility] [id number] [place] [address] Jul, [facility] [place] [address] [id number] [place] [id number] Jul, [facility] [place] [facility] [address] [id number], [place] [address] Jul, [facility] [place] [facility] [address], [place] [address] Jul, [facility] [place] [address] [facility] [id number] [place] [id number] Jul, [facility] [place] [address] [facility] [id number] [place] [id number] Jul, [facility] [place] [facility] [address], [place] [address] Jul, [facility] [place] [address] [facility] [id number] [place] [id number] Jun, [facility] [place] [facility] [address] [facility] [id number], [place] [address] Jun, [facility] [place] [facility] [address] [facility] [id number], [place] [address] Jun, [facility] [place] [address] [facility] [id number] [place] [id number] Jun, [facility] [place] [facility] [address] [facility] [id number], [place] [address] Jun, [facility] [place] [facility] [id number] [place] [address] Jun, [facility] [place] [address] [id number] [place] [id number] Jun, [facility] [address] [facility] [id number], [place] [address] Jun, [facility] [place] [address] [id number] [place] [id number] Jun, [facility] [address] [facility] [id number], [place] [address] Jun, [facility] [place] [address] [id number] [place] [id number] May, [facility] [address] [facility] [id number] [place] [address]- [address] Apr, [facility] [address] [facility] [id number][place] [address] [address] Apr, [facility] [place] [address] [id number] [place] [id number] Apr, [facility] [place] [address] [id number] [place] [id number] Apr, [facility] [place] [address] [id number] [place] [id number] Apr, [facility] [address] [id number] [place] [id number] Apr, [facility] [place] [address] [id number] [place] [id number] Apr, [facility] [place] [address] [id number] [place] [id number] Mar, [facility] [place] [address] [id number] [place] [id number] Mar, [facility] [place] [address] [id number] [place] [id number] Mar, [facility] [place] [address] [id number] [place] [id number] Mar, [facility] [place] [address] [id number] [place] [id number] Mar, [facility] [place] [address] [id number] [place] [id number] Mar, [facility] [place] [address] [id number] [place] [id number] Mar, [facility] [place] [address] [id number] [place] [id number] Feb, [facility] [place] [address] [id number] [place] [id number] Feb, [facility] [place] [address] [id number] [place] [id number] Jan, [facility] [place] [address] [id number] [place] [id number] Jan, [facility] [place] [address] [id number] [place] [id number] Jan, [facility] [place] [address] [id number] [place] [id number] Jan, [facility] [place] [address] [id number] [place] [id number] Jan, [facility] [place] [address] [id number] [place] [id number] Jan, [facility] [place] [address] [id number] [place] [id number] December, [facility] [place] [address] [id number] [place] [id number] Nov, [facility] [place] [address] [id number] [place] [id number] Oct, [facility] [place] [address] [id number] [place] [id number] Oct, [facility] [place] [address] [id number] [place] [id number] Oct, [facility] [address] [facility] [id number] [place] [address] Oct, [facility] [place] [address] [id number] [place] [id number] Oct, [facility] [place] [address] [id number] [place] [id number] Oct, [facility] [place] [address] [id number] [place] [id number] Oct, [facility] [place] [address] [id number] [place] [id number] Oct, [facility] [place] [address] [id number] [place] [id number] Oct, [facility] [place] [address] [id number] [place] [id number] Oct, [facility] [place] [address] [id number] [place] [id number] Sep, [facility] [place] [facility] [address] [facility] [id number], [place] [address] Sep, [facility] [place] [address] [id number] [place] [id number] Sep, [facility] [place] [address] [id number] [place] [id number] Aug, [facility] [place] [address] [id number] [place] [id number] Aug, [facility] [place] [address] [id number] [place] [id number] Aug, [facility] [place] [facility] [address], [place] [address] Aug, [facility] [place] [facility] [address], [place] [address] Jul, [facility] [place] [facility] [id number], [place] [address] Jul, [facility] [place] [facility] [address], [place] [address] Jul, [facility] [place] [facility] [address] [facility] [id number], [place] [address] Jul, [facility] [place] [facility] [address] [facility] [id number], [place] [address]- 1869 Jun, [facility] [place] [facility] [id number], [place] [address] Jun, [facility] [place] [facility] [address] [id number], [place] [address] May, [facility] [address] [id number] [place] [address] 10 May, 2011 [facility] [address] [id number] [place] [address]- [address] December, [facility] [address] [facility] [id number] [place] [address]- 48[address] December, [facility] [address] [id number] [place] [address]- 9178 14 Aug, 2010 [facility] [id number] [place] [address], [place] [address]- 4744 Jul, [facility] [place] [facility] [address] [id number] [place] [address]- [address]647 Jul, [facility] [address] [facility] [id number] [place] [address]- 4478 Jul, [facility] [address] [id number] [place] [address]- 9742 Jul, [facility] [address] [facility] [id number] [place] [address]- 8070 Jul, [facility] [id number] [place] [address]- [address] Jul, [facility] [address] [id number] [place] [address]- 4976 30 Jun, 2010 [facility] [place] [facility] [address] [id number], [place] [address]- [address]40 30 Jun, 2010 [facility] [place] [facility] [address] [id number] [place] [address]- 5385 29 Jun, 2010 [facility] [place] [facility] [address] [facility] [id number] [place] [address]- [address] 23 Jun, 2010 [facility] [place] [facility] [address] [facility] [id number] [place] [address]- 2704 Jun, [facility] [place] [facility] [address], [place] [address] May, [facility] [id number], [place] [address]- [address] December, [facility] [id number] December, [facility] [id number] Oct, [facility] [address], [place] [address]- [address] Jul, [facility] [id number] [place] [address]- 8911 Jul, [facility] [id number] Jul, [facility] [address], [place] [address]- [address] Jun, [facility] [address], [place] [address]- [address] May, [facility] [address], [place] [address]- [address] Jun, IMMUNIZATIONS No Known Immunizations SOCIAL HISTORY Never Assessed REASON FOR VISIT Hospital f/u-was in for CHF approx 10 days over 2 stays---fred RN PLAN OF CARE Activity Details Follow Up 2 Weeks Reason:dm VITAL SIGNS Height 54 in 2017-10-26 Weight 315.8 lbs 2017-10-26 Temperature 98.6 degrees Fahrenheit 2017-10-26 Heart Rate 108 bpm 2017-10-26 Respiratory Rate 20 2017-10-26 BMI 76.13 kg/m2 2017-10-26 Blood pressure systolic 140 mmHg 2017-10-26 Blood pressure diastolic 88 mmHg 2017-10-26 MEDICATIONS Medication Instructions Dosage Frequency Start Date End Date Duration Status Glucometer as directed Aug, Active Oxygen & Tubing by inhalation route 13/03 2 / nc w protable O2 and conserving device Oct, Active Clonidine HCl 0.1 MG Orally Once a day 1 tablet at bedtime 24h Active Sodium Bicarbonate 650 mg Orally 3 times a day 1 tablet 8h Active Aspirin 81 81 MG Orally Once a day 1 tablet 24h Active Bath/Shower Seat - as directed December, Active Nexium 40 MG TAKE ONE (1) CAPSULE BY MOUTH TWICE DAILY... 90 Active Lantus 100 UNIT/ML Subcutaneous 2 times a day 58 units 12h Active Sertraline HCl 100 MG Orally Once a day 1 tablet 24h Active Mevacor 20 MG TAKE (1) TABLET BY MOUTH ONCE DAILY WITH A MEAL. Active Vitamin D (Ergocalciferol) 22314 UNIT Orally twice a month 1 capsule Active Zemplar 1 MCG 1 capsule Active Fluticasone Furoate-Vilanterol 200-25 MCG/INH Inhalation Once a day 1 puff 24h Active Furosemide 40 mg Orally 2 times a day 1 tablet 12h Active Amlodipine Besylate 10 mg Orally Once a day 1 tablet 24h 0 Active Bathtub Safety Rail - as directed December, Active Pepcid 20 mg Orally 2 times a day TAKE 1 TABLET BY MOUTH ONCE DAILY AT BEDTIME... 12h Active Metoprolol Tartrate 25 MG Orally every 8 hours 1 tablet with food 8h Active Eliquis 5 mg Orally 2 times a day 1 tablet 12h Active Acetaminophen 325 MG Orally every 4 hrs 1 capsule as needed 4h Active ProAir HFA 108 (90 Base) MCG/ACT Inhalation every 4 hrs 2 puffs as needed 4h Active Levemir 100 UNIT/ML Subcutaneous 2 times a day 58 units 12h Sep, Active Spiriva HandiHaler 18 MCG Inhalation Once a day 1 capsule 24h Active Hydrocodone-Acetaminophen 5-325 MG Orally every 4 hrs, prn 1-2 tablet as needed Active Loratadine 10 MG TAKE ONE (1) TABLET BY MOUTH DAILY... 90 Active Iron Supplement 325 (65 Fe) MG Orally twice a day 2 tablet in am and 1 tab at hs 12h Active Oxybutynin Chloride 5 MG Orally 3 times a day 1 tablet 8h Active Test strips 1 subcutaneously 2 times a day as directed 12h Aug, Active HydrALAZINE HCl 50 mg Orally every 8 hours 1 1/2 tablets 8h Active RESULTS No Results PROCEDURES Procedure Date Ordered Result Body Site [facility] VISIT ESTABLISHED PATIENT October 26, 2017 INSTRUCTIONS MEDICATIONS ADMINISTERED No Known Medications [...]
--- OUTSIDE RECORDS SUMMARY | 2018-07-11 11:18 | XMS REPORT ---
Author Author EARL IBARRA [facility] [address] [facility] Address Unknown Care Team Providers Care [employer] Name Role Phone EARL IBARRA Unavailable PROBLEMS Type Condition ICD9-CM Code NED41-GV Code Onset Dates Condition Status SNOMED Code Problem Chronic bronchitis, unspecified chronic bronchitis type J42 Active 37280881 Problem Vitamin D deficiency, unspecified E55.9 Active 49397682 Problem Chronic obstructive pulmonary disease with acute exacerbation J44.1 Active 781176746 Problem Gastric reflux K21.9 Active 314083338 Problem Right knee pain M25.561 Active 09628264 Problem Paroxysmal atrial fibrillation I48.0 Active 235614504 Problem Sprain of right knee, unspecified ligament, initial encounter S83.91XA Active 02513256 Problem Abscess L02.91 Active 730176268 Problem Obesity, unspecified E66.9 Active 57298552474082 Problem Chronic obstructive pulmonary disease, unspecified COPD type J44.9 Active 15314289 Problem Chronic congestive heart failure, unspecified heart failure type I50.9 Active 94439097 Problem Body mass index (BMI) of 40.0-44.9 in adult Z68.41 Active 143869323 Problem Hyperlipidemia, unspecified E78.5 Active 66414386 Problem Chronic renal disease, unspecified stage N18.9 Active 787730294 Problem Type 2 diabetes mellitus with other diabetic kidney complication E11.29 Active 517224874 Problem Essential hypertension I10 Active 55362536 Problem Proteinuria R80.9 Active 76635640 Problem Renal osteodystrophy N25.0 Active 86841925 Problem Chronic kidney disease, stage IV (severe) N18.4 Active 440808069 Problem Essential (primary) hypertension I10 Active 68235549 Problem Venous (peripheral) insufficiency I87.2 Active 39794142 Problem Anemia of renal disease D63.1 Active 438231402 Problem Type 2 diabetes mellitus with diabetic nephropathy E11.21 Active 518683362 ALLERGIES Substance Reaction Event Type Date Status Percocet rash Drug Allergy May, Active Nubain rash Drug Allergy May, Active Lyrica anaphylaxis Drug Allergy May, Active Januvia rash Drug Allergy May, Active Fluoxetine nausea Drug Allergy May, Active Bexarotene rash Drug Allergy May, Active IV dye hives Non Drug Allergy May, Active ENCOUNTERS Encounter Location Date Diagnosis [facility] [address] [place] [address] [id number] December, [place] [id number] [place] [address] [id number] Nov, Body mass index (BMI) 70 or greater, adult Z68.45 ; Chronic obstructive pulmonary disease, unspecified COPD type J44.9 ; Chronic kidney disease, stage IV (severe) N18.4 and Gastric reflux K21.9 [facility] [address] [place] [address] [id number] Oct, Body mass index (BMI) 70 or greater, adult Z68.45 ; Type 2 diabetes mellitus with other diabetic kidney complication E11.29 ; Chronic obstructive pulmonary disease with acute exacerbation J44.1 and Paroxysmal atrial fibrillation I48.0 [facility] [address] [place] [address] [id number] Oct, [place] [id number] [place] [address] [id number] Oct, Type 2 diabetes mellitus with diabetic nephropathy E11.21 ; Chronic renal disease, unspecified stage N18.9 ; Chronic congestive heart failure, unspecified heart failure type I50.9 and Chronic obstructive pulmonary disease with acute exacerbation J44.1 [facility] [id number] [id number] Sep, [address] [place] [address] [id number] Sep, [place] [id number] [place] [address] [id number] Sep, [facility] [address] [address] [address] Sep, Type 2 diabetes mellitus with diabetic nephropathy E11.21 [place] [id number] [place] [address] [id number] Aug, Influenza J11.1 and Essential (primary) hypertension I10 [facility] [id number] [place] [address] 48948 2549 Aug, [facility] [id number] [place] [address] [id number] Jul, Type 2 diabetes mellitus with diabetic nephropathy E11.21 ; Essential ( primary) hypertension I10 and Chronic obstructive pulmonary disease, unspecified COPD type J44.9 [facility] [id number] [place] [address] [id number] Jun, Dental caries K02.9 [place] [id number] [place] [address] [id number] May, Cough R05 ; Chronic obstructive pulmonary disease, unspecified COPD type J44.9 ; Shortness of breath R06.02 ; Obesity, unspecified E66.9 ; Body mass index (BMI) of 40.0-44.9 in adult Z68.41 and Encounter for immunization Z23 [facility] [id number] [place] [address] [id number] May, Dental examination Z01.20 [place] [id number] [place] [address] [id number] May, Essential hypertension I10 [place] [id number] [place] [address] [id number] Apr, Anemia of renal disease D63.1 ; Type 2 diabetes mellitus with other diabetic kidney complication E11.29 ; Vitamin D deficiency, unspecified E55.9 and Chronic renal disease, unspecified stage N18.9 [facility] [id number] [place] [address] 42040- 8977 Mar, [place] [id number] [place] [address] [id number] Mar, Type 2 diabetes mellitus with other diabetic kidney complication E11.29 ; Essential hypertension I10 ; Chronic renal disease, unspecified stage N18.9 and Chronic obstructive pulmonary disease with acute exacerbation J44.1 [place] [id number] [place] [address] [id number] Feb, [facility] [id number] [id number] Feb, Chronic renal disease, unspecified stage N18.9 ; Essential (primary) hypertension I10 and Type 2 diabetes mellitus with other diabetic kidney complication E11.29 [facility] [id number], [place] [id number] Feb, Type 2 diabetes mellitus with other diabetic kidney complication E11.29 ; Chronic kidney disease, stage IV (severe) N18.4 ; Renal osteodystrophy N25.0 ; Anemia of renal disease D63.1 and Essential (primary) hypertension I10 [facility] [address] [id number] [place] [address] [id number] December, [place] [address] [place] [address] [id number] December, Chronic obstructive pulmonary disease with acute exacerbation J44.1 ; Essential (primary) hypertension I10 ; Low back pain M54.5 and Right knee pain M25.561 [address] [place] [address] [id number] Nov, Chronic renal disease, unspecified stage N18.9 ; Essential hypertension I10 ; Type 2 diabetes mellitus with other diabetic kidney complication E11.29 and Chronic obstructive pulmonary disease with acute exacerbation J44.1 [address] [place] [address] [id number] Nov, Chronic renal disease, unspecified stage N18.9 ; Hyperlipidemia, unspecified E78.5 and Essential hypertension I10 [address] [place] [address] [id number] Oct, Chronic bronchitis, unspecified chronic bronchitis type J42 and Type 2 diabetes mellitus with diabetic nephropathy E11.21 [address] [place] [address] [id number] Sep, Chronic bronchitis, unspecified chronic bronchitis type J42 ; Essential ( primary) hypertension I10 and Type 2 diabetes mellitus with other diabetic kidney complication E11.29 [address] [place] [address] [id number] Sep, Chronic obstructive pulmonary disease with acute exacerbation J44.1 [address] [id number] Aug, Type 2 diabetes mellitus with diabetic nephropathy E11.21 ; Chronic kidney disease, stage IV (severe) N18.4 ; Essential (primary) hypertension I10 and Encounter for immunization Z23 [address] [place] [address] [id number] Aug, Chronic kidney disease, stage IV (severe) N18.4 ; Type 2 diabetes mellitus with diabetic nephropathy E11.21 and Type 2 diabetes mellitus with hyperglycemia E11.65 [address] [place] [address] [id number] May, Anemia of renal disease D63.1 ; Essential (primary) hypertension I10 ; Renal osteodystrophy N25.0 ; Proteinuria R80.9 ; Chronic kidney disease, stage IV (severe) N18.4 and Type 2 diabetes mellitus with other diabetic kidney complication E11.29 [address] [place] [address] [id number] Mar, Type 2 diabetes mellitus with other diabetic kidney complication E11.29 ; Essential hypertension I10 ; Chronic renal disease, unspecified stage N18.9 and TMJ (temporomandibular joint disorder) M26.60 [place] [id number] [place] [address] [id number] Jan, Chronic kidney disease, stage IV (severe) N18.4 and Hyperlipidemia, unspecified E78.5 [address] [place] [address] [id number] December, Type 2 diabetes mellitus with other diabetic kidney complication E11.29 ; Abscess L02.91 and Chronic kidney disease, stage IV (severe) N18.4 [address] [place] [address] [id number] December, Abscess L02.91 [address] [place] [address] [id number] December, [address] [place] [address] [id number] Oct, Renal osteodystrophy N25.0 ; Chronic kidney disease, stage IV (severe) N18.4 and Vitamin D deficiency E55.9 [address] [place] [address] [id number] Oct, [address] [id number] Sep, Type 2 diabetes mellitus with other diabetic kidney complication E11.29 ; Essential hypertension I10 and Chronic airway obstruction, not elsewhere classified J44.9 [place] [id number] [place] [address] [id number] Sep, [place] [address] [place] [address] [id number] Aug, [place] [address] [place] [address] [id number] Jul, [place] [address] [place] [address] [id number] Jul, [place] [address] [place] [address] [id number] Jul, Chronic kidney disease, stage IV (severe) N18.4 ; Renal osteodystrophy N25.0 and Proteinuria R80.9 [facility] [id number] [place] [address] 23258- 1284 Jul, [facility] [place] [id number] [place] [address] [id number] Jun, [facility] [address] [place] [id number] [place] [address] [id number] Jun, [address] [place] [address] [id number] Jun, Diabetes with renal manifestations, type II or unspecified type, uncontrolled 250.42 and Right knee pain M25.561 [facility] [address] [address]- [address] May, [place] [address] [place] [address] [id number] May, Abscess L02.91 ; Encounter for immunization Z23 and Sprain of right knee, unspecified ligament, initial encounter S83.91XA [place] [id number] May, Abscess L02.91 [place] [address] [facility] [id number] [id number] May, [address] [id number] Apr, Diabetes with renal manifestations, type II or unspecified type, uncontrolled 250.42 and PPV23 (PNEUMOVAX) DX V03.82 [address] [place] [address] [id number] Mar, [place] [address] [place] [address] [id number] Mar, Proteinuria 791.0 ; Renal osteodystrophy 588.0 ; Chronic kidney disease, Stage IV (severe) 585.4 ; Benign essential hypertension 401.1 and Vitamin D deficiency 268.9 [address] [place] [address] [id number] Feb, Avulsion fracture of ankle 824.8 [address] [place] [address] [id number] Feb, [address] [place] [address] [id number] Feb, [address] [place] [address] [id number] Feb, Diabetes with renal manifestations, type II or unspecified type, uncontrolled 250.42 [address] [id number] Jan, Diabetes with renal manifestations, type II or unspecified type, uncontrolled 250.42 [address] [id number] December, Diabetes with renal manifestations, type II or unspecified type, uncontrolled 250.42 and Unspecified essential hypertension 401.9 [address] [id number] December, [address] [id number] December, [place] [id number] [id number] December, Essential hypertension 401.9 [facility] [address] [facility] [id number] [place] [id number] Nov, Essential hypertension 401.9 [facility] [address] [facility] [place] [id number][place] [id number] Nov, [facility] [address] [place] [address] [id number] [place] [id number] Nov, [facility] [address] [address] [id number] [id number] Nov, [facility] [place] [facility] [address], [place] [address]- 25[address] Nov, [facility] [place] [facility] [address], [place] [address]- 4[address] Nov, [facility] [address] [place] [address] [id number][place] 879011044 Oct, [facility] [place] [facility] [address], [place] [address]- 0[address] Oct, [facility] [address] [place] [id number], [place] [id number] Oct, [facility] [place] [facility] [address]65[address], [place] [address]- 5556 Oct, [facility] [place] [facility] [address]65[address], [place] [address]- 7726 Oct, [facility] [address] [address] [id number], [place] [id number] Oct, [facility] [address] [id number], [place] 527100268 Oct, [facility] [place] [facility] [address]65100[place], [place] [address]- 0716 Oct, [facility] [place] [facility] [address]65[address], [place] [address]- 2546 Sep, [facility] [address] [place] [id number], [place] 907381122 Sep, [facility] [address] [id number] [place] [id number] Sep, [facility] [place] [facility] [address] [facility] [id number], [place] [address]- 99[address] Sep, [facility] [address] [facility] [id number] [place] [id number] Aug, [facility] [place] [facility] [address] [facility] [id number][place] [address]- 6608 Aug, [facility] [address] [facility] [id number] [place] [id number] Aug, [facility] [place] [facility] [address] [facility] [id number], [place] [address]- 3725 Aug, [facility] [address] [facility] [id number], [place] 632710000 Aug, [facility] [place] [facility] [address], [place] [address]- 8478 Aug, [facility] [place] [facility] [address] [facility] [id number], [place] [address]- 6062 Aug, [facility] [address] [facility] [id number], [place] [id number] Aug, [facility] [place] [facility] [address] [facility] [id number], [place] [address]- 6226 Jul, [facility] [place] [facility] [address] [facility] [id number], [place] [address]- 9692 Jul, [facility] [address] [facility] [id number], [place] [id number] Jul, [facility] [place] [facility] [address] [facility] [id number], [place] [address]- 6907 Jul, [facility] [address] [facility] [id number], [place] [id number] Jul, [facility] [place] [facility] [address] [facility] [id number], [place] [address]- 7207 Jul, [facility] [address] [facility] [id number], [place] [id number] Jul, [facility] [place] [facility] [address] [facility] [id number], [place] [address]- 7576 Jul, [facility] [place] [facility] [address] [facility] [id number] [place] [address]- 2546 May, [facility] [address] [facility] [id number], [place] 756885245 May, [facility] [address] [facility] [id number] [place] [id number] May, [facility] [place] [facility] [address] [facility] [id number] [place] [address]- 2546 May, [facility] [address] [facility] [id number], [place] [id number] Apr, [facility] [place] [facility] [address] [id number], [place] [address]- 2546 Apr, [facility] [id number], [place] 616949015 Mar, [facility] [place] [facility] [address]65100[place], [place] [address]- 5866 Mar, [facility] [place] [facility] [address]65[address], [place] [address]- 5806 Mar, [facility] [place] [facility] [address], [place] [address]- 4576 Mar, [facility] [address] [facility] [id number], [place] 994959538 Mar, [facility] [address] [facility] [id number], [place] [id number] Feb, [facility] [place] [facility] [address] [facility] [id number][place] [address]- 6346 Feb, [facility] [address] [facility] [id number], [place] 560228945 Jan, [facility] [place] [facility] [address] [facility] [id number], [place] [address]- 7766 Jan, [facility] [place] [facility] [address], [place] [address]- 2546 Jan, [facility] [address] [id number] [place] 047325210 Jan, [facility] [address] [id number] [place] 011796109 Jan, [facility] [place] [facility] [address] [id number] [place] [address]- 5016 Jan, [facility] [address] [id number] [place] [id number] December, [facility] [place] [facility] [address] [id number] [place] [address]- 7206 December, [facility] [place] [facility] [address] [facility] [id number] [place] [address]- 8617 Nov, [facility] [place] [facility] [address] [facility] [id number] [place] [address]- 7642 Nov, [facility] [address] [facility] [id number] [place] [id number] Nov, [facility] [place] [facility] [address] [facility] [id number], [place] [address]- 2584 Nov, [facility] [address] [id number] [place] [id number] Oct, [facility] [place] [facility] [address] [facility] [id number], [place] [address]- 3445 Oct, [facility] [address] [id number] [place] [id number] Oct, [facility] [place] [facility] [address] [facility] [id number] [place] [address]- 2028 Oct, [facility] [address] [id number] [place] [id number] Oct, [facility] [place] [facility] [address] [facility] [id number], [place] [address]- 1396 Oct, [facility] [address] [id number] [place] [id number] Oct, [facility] [place] [facility] [address] [facility] [id number], [place] [address]- 0088 Oct, [facility] [address] [facility] [id number], [place] 853156932 Aug, [facility] [address] [facility] [id number], [place] [address]- 6995 Aug, [facility] [address] [facility] [id number], [place] 164557270 Jul, [facility] [place] [facility] [address] [facility] [id number], [place] [address]- 5610 Jul, [facility] [address] [facility] [id number], [place] 701919713 Jun, [facility] [place] [facility] [address] [facility] [id number], [place] [address]- 0865 Jun, [facility] [place] [facility] [address] [id number], [place] [address]- 3565 Jun, [facility] [address] [facility] [id number], [place] 640946567 Jun, [facility] [address] [facility] [id number], [place] 923102652 May, [facility] [place] [facility] [address]65[address], [place] [address]- 5784 May, [facility] [place] [facility] [address] [facility] [id number], [place] [address]- 2442 May, [facility] [address] [facility] [id number], [place] [id number] May, [facility] [place] [facility] [address] [facility] [id number], [place] [address]- 2115 May, [facility] [address] [facility] [id number], [place] 484100693 May, [facility] [place] [facility] [address] [facility] [id number], [place] [address]- 8780 May, [facility] [address] [facility] [id number], [place] 774125638 May, [facility] [place] [facility] [address] [facility] [id number], [place] [address]- 7498 Apr, [facility] [address] [facility] [id number], [place] [address]- 7261 Apr, [facility] [address] [id number], [place] 986905313 Apr, [facility] [address] [facility] [id number], [place] [address] 2549 Apr, [facility] [address] [facility] [id number], [place] [address]- 3907 Mar, [facility] [address] [id number] [place] 847451406 Mar, [facility] [address] [id number] [place] 159399899 Feb, [facility] [address] [id number] [place] 950604629 Feb, [facility] [address] [id number] [place] [id number] Feb, [facility] [address] [id number] [place] 856503125 Jan, [facility] [address] [facility] [id number], [place] [address] 2544 Jan, [facility] [address] [id number] [place] [id number] Jan, [facility] [address] [id number] [place] [id number] December, [facility] [address] [facility] [id number], [place] [address]- 2546 December, [facility] [address] [id number] [place] 721382697 December, [facility] [address] [id number] [place] 501728067 December, [facility] [address] [id number] [place] 145582636 Nov, [facility] [address] [id number] [place] 360571095 Nov, [facility] [address] [id number], [place] [address]- 2546 Nov, [facility] [address] [id number] [place] 601394071 Nov, [facility] [address] [id number] [place] 945787680 Oct, [facility] [address] [id number] [place] [id number] Oct, [facility] [address] [id number] [place] 186983668 Oct, [facility] [address] [id number] [place] 623723032 Oct, [facility] [address] [id number] [place] 101303543 Sep, [facility] [address] [id number] [place] [id number] Sep, [facility] [address] [facility] [id number], [place] [address] Aug, [facility] [address] [facility] [id number], [place] [address] Aug, [facility] [address] [id number][place] [id number] Aug, [facility] [address] [id number] [place] [id number] Aug, [facility] [address] [id number][place] [id number] Jul, [facility] [address] [id number][place] [id number] Jul, [facility] [address] [facility] [id number], [place] [address] Jul, [facility] [address] [facility] [id number], [place] [address] Jul, [facility] [address] [id number] [place] [id number] Jul, [facility] [address] [id number], [place] [address] Jul, [facility] [address] [id number] [place] [id number] Jul, [facility] [address] [facility] [id number], [place] [address] Jul, [facility] [address] [facility] [id number], [place] [address] Jul, [facility] [address] [id number] [place] [id number] Jul, [facility] [address] [id number] [place] [id number] Jul, [facility] [address] [facility] [id number] [address] Jul, [facility] [address] [id number] [place] [id number] Jun, [facility] [address] [facility] [id number], [place] [address] Jun, [facility] [address] [facility] [id number], [place] [address] Jun, [facility] [address] [facility] [place] [id number][place] [id number] Jun, [facility] [address] [facility] [id number], [place] [address] Jun, [facility] [place] [facility] [address] [facility] [id number], [place] [address] Jun, [facility] [place] [address] [facility] [id number] [id number] Jun, [facility] [place] [facility] [address] [facility] [id number], [place] [address] Jun, [facility] [place] [address] [facility] [id number][place] [id number] Jun, [facility] [place] [facility] [address] [facility] [id number], [place] [address] Jun, [facility] [place] [address] [id number] [place] [id number] May, [facility] [address] [id number] [place] [address] [address] Apr, [facility] [address] [id number] [place] [address] Apr, [facility] [place] [address] [id number] [place] [id number] Apr, [facility] [place] [address] [id number] [place] [id number] Apr, [facility] [place] [address] [id number] [place] [id number] Apr, [facility] [place] [address] [id number] [place] [id number] Apr, [facility] [place] [address] [id number] [place] [address] Apr, [facility] [place] [address] [id number] [place] [id number] Mar, [facility] [address] [id number] [place] [id number] Mar, [facility] [place] [address] [id number] [place] [id number] Mar, [facility] [place] [address] [id number] [place] [id number] Mar, [facility] [place] [address] [id number] [place] [id number] Mar, [facility] [place] [address] [id number] [place] [id number] Mar, [facility] [place] [address] [id number] [place] [id number] Mar, [facility] [place] [address] [id number] [place] [id number] Feb, [facility] [place] [address] [id number] [place] [id number] Feb, [facility] [place] [address] [id number] [place] [id number] Jan, [facility] [place] [address] [id number] [place] [id number] Jan, [facility] [place] [address] [id number] [place] [id number] Jan, [facility] [place] [address] [id number] [place] [id number] Jan, [facility] [place] [address] [id number] [place] [id number] Jan, [facility] [place] [address] [id number] [place] [id number] Jan, [facility] [place] [address] [id number] [place] [id number] December, [facility] [place] [address] [id number] [place] [id number] Nov, [facility] [place] [address] [id number] [place] [address] Oct, [facility] [place] [address] [id number] [place] [address] Oct, [facility] [place] [address] [id number] [place] [address] Oct, [facility] [address]00565[address], [place] [address] Oct, [facility] [place] [address] [id number] [place] [id number] Oct, [facility] [place] [address] [id number] [place] [id number] Oct, [facility] [place] [address] [id number] [place] [id number] Oct, [facility] [place] [address] [id number] [place] [id number] Oct, [facility] [place] [address] [id number] [place] [id number] Oct, [facility] [place] [address] [id number] [place] [id number] Oct, [facility] [place] [address] [id number] [place] [id number] Sep, [facility] [address] [id number], [place] [address] Sep, [facility] [place] [address] [id number] [place] [id number] Sep, [facility] [place] [address] [id number] [place] [id number] Aug, [facility] [place] [address] [id number] [place] [id number] Aug, [facility] [place] [address] [id number] [place] [id number] Aug, [facility] [address] [id number], [place] [address] Aug, [facility] [place] [facility] [address] [facility] [id number], [place] [address] Jul, [facility] [place] [facility] [address]65100[place], [place] [address] Jul, [facility] [place] [facility] [address]65100[place], [place] [address] Jul, [facility] [place] [facility] [address] [id number], [place] [address] Jul, [facility] [place] [facility] [address]65100[place], [place] [address] Jun, [facility] [place] [facility] [address]65100[place], [place] [address] Jun, [facility] [place] [facility] [address] [facility] [id number], [place] [address] May, [facility] [place] [facility] [address] [facility] [id number], [place] [address] May, [facility] [place] [facility] [address] [facility] [id number], [place] [address] December, [facility] [place] [facility] [address] [facility] [id number], [place] [address] December, [facility] [place] [facility] [address]65100[place], [place] [address] 14 Aug, 2010 [facility] [address] [id number] [place] [address]- [address] 29 Jul, 2010 [facility] [place] [facility] [address] [id number] [place] [address] 28 Jul, 2010 [facility] [place] [facility] [address] [id number] [place] [address] 23 Jul, 2010 [facility] [place] [facility] [address] [id number] [place] [address] 16 Jul, 2010 [facility] [address] [id number] [place] [address] 16 Jul, 2010 [facility] [place] [facility] [address] [id number] [place] [address] Jul, [facility] [address] [id number] [place] [address]- [address] 30 Jun, 2010 [facility] [place] [facility] [address] [id number] [place] [address] 30 Jun, 2010 [facility] [place] [facility] [address] [id number] [place] [address] 29 Jun, 2010 [facility] [place] [facility] [address] [id number] [place] [address]37 Jun, [facility] [place] [facility] [address] [id number], [place] [address] 4736 Jun, [facility] [place] [facility] [address] [id number], [place] [address] 14 May, 2010 [facility] [place] [facility] [address] [id number] [place] [address] December, [facility] [place] [facility] [address] [id number] [place] [address] December, [facility] [place] [facility] [address] [id number] [place] [address] Oct, [facility] [place] [facility] [address] [facility] [id number], [place] [address] Jul, [facility] [address] [id number], [place] [address] Jul, [facility] [address]65100[place], [place] [address] Jul, [place] [address]65100[place], [place] [address] Jun, [facility] [address]65100[place], [place] [address] May, [place] [id number] [place] [address] Jun, IMMUNIZATIONS No Known Immunizations SOCIAL HISTORY Never Assessed REASON FOR VISIT GIOVANNY PLAN OF CARE Activity Details Follow Up prn Reason:TE #7, #11 and #12 VITAL SIGNS Height 54 in 2017-05-26 Blood pressure systolic 172 mmHg 2017-05-26 Blood pressure diastolic 76 mmHg 2017-05-26 MEDICATIONS Medication Instructions Dosage Frequency Start Date End Date Duration Status Furosemide 20 mg Orally every other day 1 tablet Active Allopurinol 100 MG TAKE TWO (2) TABLETS BY MOUTH ONCE DAILY... Active Oxybutynin Chloride 5 MG Orally 3 times a day 1 tablet 8h Active Incruse Ellipta 62.5 MCG/INH Inhalation Once a day 1 puff 24h Mar, Active Zemplar 1 MCG 1 capsule Active Nexium 40 MG TAKE ONE (1) CAPSULE BY MOUTH TWICE DAILY... 90 Active Lantus 100 UNIT/ML INJECT (53 UNITS) BY SUBCUTANEOUS ROUTE IN THE MORNING AND (40 UNITS)IN THE EVENING. Active Glucometer as directed Aug, Active Mevacor 20 MG TAKE (1) TABLET BY MOUTH ONCE DAILY WITH A MEAL. Active Amlodipine Besylate 10 mg Orally Once a day 1 tablet 24h 0 days Active Loratadine 10 MG TAKE ONE (1) TABLET BY MOUTH DAILY... 90 Active Vitamin D (Ergocalciferol) 91883 UNIT Orally twice a month 1 capsule Active Pepcid 20 MG TAKE 1 TABLET BY MOUTH ONCE DAILY AT BEDTIME... Active Zoloft 100 MG TAKE ONE (1) TABLET BY MOUTH DAILY... Active Actos 15 MG TAKE ONE (1) TABLET BY MOUTH DAILY... Active ProAir HFA 108 (90 Base) MCG/ACT Inhalation every 4 hrs 2 puffs as needed 4h Active Iron Supplement 325 (65 Fe) MG Orally twice a day 2 tablet in am and 1 tab at hs 12h Active Metoprolol Succinate 100 mg Orally 2 times a day 1 tablet 12h Active Bathtub Safety Rail - as directed December, Active Sertraline HCl 100 MG Orally Once a day 1 tablet 24h Active Oxygen & Tubing by inhalation route 13/03 2 / nc w protable O2 and conserving device Oct, Active Bath/Shower Seat - as directed December, Active Test strips 1 subcutaneously 2 times a day as directed 12h 18 Aug, 2016 Active Sodium Bicarbonate 650 MG Orally 2 times a day 2 tablet 12h Active RESULTS No Results PROCEDURES Procedure Date Ordered Result Body Site LTD ORAL EVALUATION - PROBLEM FOCUS May 26, 2017 INTRAORL-PERIAPICAL 1 FILM [id number] May 26, 2017 INTRAORL-PERIAPICAL EA ADD FILM May 26, 2017 INSTRUCTIONS MEDICATIONS ADMINISTERED No Known [...]
--- OUTSIDE RECORDS SUMMARY | 2018-07-11 11:18 | XMS REPORT ---
Author Author JOSEP GONG [facility] Address [address] [place] [address] Care Team Providers Care Fine Grade Operator Name Role Phone JOSEP GONG Unavailable PROBLEMS Type Condition ICD9-CM Code EUT33-XL Code Onset Dates Condition Status SNOMED Code Problem Chronic bronchitis, unspecified chronic bronchitis type J42 Active 67276343 Problem Vitamin D deficiency, unspecified E55.9 Active 04972743 Problem Chronic obstructive pulmonary disease with acute exacerbation J44.1 Active 495374053 Problem Gastric reflux K21.9 Active 862540427 Problem Right knee pain M25.561 Active 96733783 Problem Paroxysmal atrial fibrillation I48.0 Active 160780767 Problem Sprain of right knee, unspecified ligament, initial encounter S83.91XA Active 50126668 Problem Abscess L02.91 Active 558180046 Problem Obesity, unspecified E66.9 Active 94156353144035 Problem Chronic obstructive pulmonary disease, unspecified COPD type J44.9 Active 17882651 Problem Chronic congestive heart failure, unspecified heart failure type I50.9 Active 72215176 Problem Body mass index (BMI) of 40.0-44.9 in adult Z68.41 Active 417935969 Problem Hyperlipidemia, unspecified E78.5 Active 25699585 Problem Chronic renal disease, unspecified stage N18.9 Active 698511205 Problem Type 2 diabetes mellitus with other diabetic kidney complication E11.29 Active 646799662 Problem Essential hypertension I10 Active 86892006 Problem Proteinuria R80.9 Active 90491279 Problem Renal osteodystrophy N25.0 Active 12713124 Problem Chronic kidney disease, stage IV (severe) N18.4 Active 824403573 Problem Essential (primary) hypertension I10 Active 63516160 Problem Venous (peripheral) insufficiency I87.2 Active 08193053 Problem Anemia of renal disease D63.1 Active 170963865 Problem Type 2 diabetes mellitus with diabetic nephropathy E11.21 Active 674322084 ALLERGIES No Information ENCOUNTERS Encounter Location Date Diagnosis [address] [place] [id number] December, [address] [id number] Nov, Body mass index (BMI) 70 or greater, adult Z68.45 ; Chronic obstructive pulmonary disease, unspecified COPD type J44.9 ; Chronic kidney disease, stage IV (severe) N18.4 and Gastric reflux K21.[address] [id number] Oct, Body mass index (BMI) 70 or greater, adult Z68.45 ; Type 2 diabetes mellitus with other diabetic kidney complication E11.29 ; Chronic obstructive pulmonary disease with acute exacerbation J44.1 and Paroxysmal atrial fibrillation I48.[address] [id number] Oct, [address] [id number] Oct, Type 2 diabetes mellitus with diabetic nephropathy E11.21 ; Chronic renal disease, unspecified stage N18.9 ; Chronic congestive heart failure, unspecified heart failure type I50.9 and Chronic obstructive pulmonary disease with acute exacerbation J44.1 [place] [id number] [place] [address] [id number] Sep, [place] [id number] [place] [address] [id number] Sep, [address] [id number] Sep, [facility] [address] [id number] [address] Sep, Type 2 diabetes mellitus with diabetic nephropathy E11.[address] [id number] Aug, Influenza J11.1 and Essential (primary) hypertension I10 [facility] [address] [id number] [address] Aug, [address] [id number] Jul, Type 2 diabetes mellitus with diabetic nephropathy E11.21 ; Essential ( primary) hypertension I10 and Chronic obstructive pulmonary disease, unspecified COPD type J44.9 [facility] [address] [facility] [id number] [id number] Jun, Dental caries K02.9 [facility] [address] [place] [address] [id number] May, Cough R05 ; Chronic obstructive pulmonary disease, unspecified COPD type J44.9 ; Shortness of breath R06.02 ; Obesity, unspecified E66.9 ; Body mass index (BMI) of 40.0-44.9 in adult Z68.41 and Encounter for immunization Z23 [facility] [address] [id number] May, Dental examination Z01.[address] [place] [address] [id number] May, Essential hypertension I10 [place] [id number] [place] [address] [id number] Apr, Anemia of renal disease D63.1 ; Type 2 diabetes mellitus with other diabetic kidney complication E11.29 ; Vitamin D deficiency, unspecified E55.9 and Chronic renal disease, unspecified stage N18.9 [facility] [address] [id number] [address] Mar, [address] [place] [address] [id number] Mar, Type 2 diabetes mellitus with other diabetic kidney complication E11.29 ; Essential hypertension I10 ; Chronic renal disease, unspecified stage N18.9 and Chronic obstructive pulmonary disease with acute exacerbation J44.1 [address] [id number] Feb, [place] [address] [place] [address] [id number] Feb, Chronic renal disease, unspecified stage N18.9 ; Essential (primary) hypertension I10 and Type 2 diabetes mellitus with other diabetic kidney complication E11.29 [place] [id number] [id number] Feb, Type 2 diabetes mellitus with other diabetic kidney complication E11.29 ; Chronic kidney disease, stage IV (severe) N18.4 ; Renal osteodystrophy N25.0 ; Anemia of renal disease D63.1 and Essential (primary) hypertension I10 [address] [place] [address] [id number] December, [place] [address] [place] [address] [id number] December, Chronic obstructive pulmonary disease with acute exacerbation J44.1 ; Essential (primary) hypertension I10 ; Low back pain M54.5 and Right knee pain M25.561 [place] [address] [place] [address] [id number] Nov, Chronic renal disease, unspecified stage N18.9 ; Essential hypertension I10 ; Type 2 diabetes mellitus with other diabetic kidney complication E11.29 and Chronic obstructive pulmonary disease with acute exacerbation J44.1 [address] [place] [address] [id number] Nov, Chronic renal disease, unspecified stage N18.9 ; Hyperlipidemia, unspecified E78.5 and Essential hypertension I10 [place] [address] [place] [address] [id number] Oct, Chronic bronchitis, unspecified chronic bronchitis type J42 and Type 2 diabetes mellitus with diabetic nephropathy E11.21 [address] [place] [address] [id number] Sep, Chronic bronchitis, unspecified chronic bronchitis type J42 ; Essential ( primary) hypertension I10 and Type 2 diabetes mellitus with other diabetic kidney complication E11.29 [address] [place] [address] [id number] Sep, 2016 Chronic obstructive pulmonary disease with acute exacerbation J44.1 [address] [place] [address] [id number] Aug, Type 2 diabetes mellitus with diabetic nephropathy E11.21 ; Chronic kidney disease, stage IV (severe) N18.4 ; Essential (primary) hypertension I10 and Encounter for immunization Z23 [id number] [id number] Aug, Chronic kidney disease, stage IV (severe) N18.4 ; Type 2 diabetes mellitus with diabetic nephropathy E11.21 and Type 2 diabetes mellitus with hyperglycemia E11.65 [address] [place] [address] [id number] May, Anemia of renal disease D63.1 ; Essential (primary) hypertension I10 ; Renal osteodystrophy N25.0 ; Proteinuria R80.9 ; Chronic kidney disease, stage IV (severe) N18.4 and Type 2 diabetes mellitus with other diabetic kidney complication E11.29 [address] [place] [address] [id number] Mar, Type 2 diabetes mellitus with other diabetic kidney complication E11.29 ; Essential hypertension I10 ; Chronic renal disease, unspecified stage N18.9 and TMJ (temporomandibular joint disorder) M26.60 [place] [id number] [place] [address] [id number] Jan, Chronic kidney disease, stage IV (severe) N18.4 and Hyperlipidemia, unspecified E78.5 [address] [place] [address] [id number] December, Type 2 diabetes mellitus with other diabetic kidney complication E11.29 ; Abscess L02.91 and Chronic kidney disease, stage IV (severe) N18.4 [address] [place] [address] [id number] December, Abscess L02.91 [address] [place] [address] [id number] December, [address] [place] [address] [id number] Oct, Renal osteodystrophy N25.0 ; Chronic kidney disease, stage IV (severe) N18.4 and Vitamin D deficiency E55.9 [address] [place] [address] [id number] Oct, [place] [address] [place] [address] [id number] Sep, Type 2 diabetes mellitus with other diabetic kidney complication E11.29 ; Essential hypertension I10 and Chronic airway obstruction, not elsewhere classified J44.9 [address] [place] [address] [id number] Sep, [place] [address] [place] [address] [id number] Aug, [address] [place] [address] [id number] Jul, [address] [id number] Jul, [place] [address] [place] [address] [id number] Jul, Chronic kidney disease, stage IV (severe) N18.4 ; Renal osteodystrophy N25.0 and Proteinuria R80.9 [place] [address] [address] Jul, [facility] [id number] [place] [address] [id number] Jun, [facility] [id number] [place] [address] [id number] Jun, [place] [address] [place] [address] [id number] Jun, Diabetes with renal manifestations, type II or unspecified type, uncontrolled 250.42 and Right knee pain M25.561 [place] [address] [id number] [place] [address] May, [place] [address] [place] [address] [id number] May, Abscess L02.91 ; Encounter for immunization Z23 and Sprain of right knee, unspecified ligament, initial encounter S83.91XA [place] [address] [place] [address] [id number] May, Abscess L02.91 [facility] [id number] [place] [address] [id number] May, [place] [address] [place] [address] [id number] Apr, Diabetes with renal manifestations, type II or unspecified type, uncontrolled 250.42 and PPV23 (PNEUMOVAX) DX V03.82 [place] [id number] [place] [address] [id number] Mar, [place] [address] [place] [address] [id number] Mar, Proteinuria 791.0 ; Renal osteodystrophy 588.0 ; Chronic kidney disease, Stage IV (severe) 585.4 ; Benign essential hypertension 401.1 and Vitamin D deficiency 268.9 [place] [id number] [place] [address] [id number] Feb, Avulsion fracture of ankle 824.8 [place] [address] [place] [address] [id number] Feb, [place] [address] [place] [address] [id number] Feb, [place] [address] [place] [address] [id number] Feb, Diabetes with renal manifestations, type II or unspecified type, uncontrolled 250.42 [place] [address] [place] [address] [id number] Jan, Diabetes with renal manifestations, type II or unspecified type, uncontrolled 250.42 [place] [address] [place] [address] [id number] December, Diabetes with renal manifestations, type II or unspecified type, uncontrolled 250.42 and Unspecified essential hypertension 401.9 [place] [address] [place] [address] [id number] December, [place] [address] [place] [address] [id number] December, [place] [address] [place] [address] [id number] December, Essential hypertension 401.9 [place] [address] [place] [address] [id number] Nov, Essential hypertension 401.9 [place] [address] [place] [address] [id number] Nov, [facility] [address] [id number] [place] [id number] Nov, [facility] [place] [address] [id number] [place] [id number] Nov, [facility] [place] [facility] [address] [facility] [id number] [place] [address]- 2546 Nov, [facility] [place] [facility] [address] [facility] [address] [id number] [place] [address]- 2546 Nov, [facility] [place] [address] [id number] [place] [id number] Oct, [facility] [place] [facility] [address] [facility] [address] [id number] [place] [address]- 2546 Oct, [facility] [address] [facility] [id number][place] [id number] Oct, [facility] [place] [facility] [id number] [address] Oct, [facility] [place] [facility] [address] [facility] [address] [id number] [address]- [address] Oct, [facility] [place] [address] [id number][place] [id number] Oct, [facility] [place] [address] [facility] [id number][place] [id number] Oct, [facility] [place] [facility] [address] [facility] [address] [id number] [address]- 2546 Oct, [facility] [place] [facility] [address] [facility] [address] [id number] [address]- 25[address] Sep, [facility] [place] [address] [id number] [place] [id number] Sep, [facility] [address] [id number], [place] [id number] Sep, [facility] [place] [facility] [address] [facility] [address] [id number] [address]- 25[address] Sep, [facility] [place] [address] [id number], [place] [id number] Aug, [facility] [address] [facility] [address] [id number] [place] [address]- 6036 Aug, [facility] [place] [address] [facility] [id number] [place] [id number] Aug, [facility] [place] [facility] [address] [facility] [address] [id number] [place] [address]- 6056 Aug, [facility] [address] [facility] [id number], [place] [id number] Aug, [facility] [place] [facility] [address] [facility] [address] [id number] [place] [address]- 0789 Aug, [facility] [place] [facility] [address] [facility] [id number] [place] [address]- 8716 Aug, [facility] [address] [facility] [id number] [place] [id number] Aug, [facility] [place] [facility] [address], [place] [address]- [address] Jul, [facility] [place] [facility] [address] [facility] [address] [id number] [place] [address]- 8808 Jul, [facility] [address] [facility] [id number][place] [id number] Jul, [facility] [place] [facility] [address] [facility] [address] [id number], [place] [address]- 4486 Jul, [facility] [address] [facility] [id number][place] [id number] Jul, [facility] [place] [facility] [address] [facility] [address] [id number], [place] [address]- 8006 Jul, [facility] [address] [facility] [id number][place] [id number] Jul, [facility] [place] [facility] [address] [facility] [address] [id number] [place] [address]- 7326 Jul, [facility] [place] [facility] [address] [facility] [address] [id number], [place] [address]- 8204 May, [facility] [place] [address] [id number] [place] [id number] May, [facility] [address] [id number] [place] [id number] May, [facility] [place] [facility] [address] [facility] [address] [id number] [place] [address]- 5868 May, [facility] [address] [facility] [id number] [place] [id number] Apr, [facility] [place] [facility] [address] [facility] [address] [id number], [place] [address]- 9238 Apr, [facility] [address] [facility] [id number] [place] [id number] Mar, [facility] [place] [facility] [address] [facility] [address] [id number], [place] [address]- 8915 Mar, [facility] [place] [facility] [address] [facility] [address] [id number], [place] [address]- 1878 Mar, [facility] [place] [facility] [address] [facility] [address] [id number], [place] 82869981- 5289 Mar, [facility] [address] [id number] [place] [id number] Mar, [facility] [address] [facility] [id number], [place] [id number] Feb, [facility] [place] [facility] [address] [facility] [address] [id number] [address]- 4812 Feb, [facility] [address] [facility] [id number], [place] [id number] Jan, [facility] [place] [facility] [address] [facility] [address] [id number], [place] [address]- 8527 Jan, [facility] [place] [facility] [address] [facility] [address] [id number] [place] [address]- 8625 Jan, [facility] [address] [id number] [place] [id number] Jan, [facility] [address] [facility] [id number] [place] [id number] Jan, [facility] [place] [facility] [address] [id number] [place] [address]- 2546 Jan, [facility] [address] [facility] [id number], [place] [id number] December, [facility] [place] [facility] [address] [facility] [address] [id number], [place] [address] 2546 December, [facility] [place] [facility] [address] [facility] [address] [id number], [place] [address]- 1276 Nov, [facility] [place] [facility] [address] [facility] [address] [id number], [place] [address] 2546 Nov, [facility] [address] [facility] [id number], [place] [id number] Nov, [facility] [place] [facility] [address] [facility] [address] [id number], [place] [address] 2546 Nov, [facility] [address] [facility] [id number], [place] 170372576 Oct, [facility] [place] [facility] [address] [facility] [address] [id number], [place] [address]- 3521 Oct, [facility] [address] [facility] [id number], [place] 030010935 Oct, [facility] [place] [facility] [address] [facility] [address] [id number], [place] [address]- 4446 Oct, [facility] [address] [facility] [id number], [place] 069687289 Oct, [facility] [place] [facility] [address] [facility] [address] [id number], [place] [address]- 2546 Oct, [facility] [address] [id number], [place] 839591650 Oct, [facility] [place] [facility] [address] [facility] [address] [id number] [address]- 2546 Oct, [facility] [address] [id number], [place] 979371736 Aug, [facility] [place] [facility] [address] [facility] [address] [id number], [place] [address]- 4956 Aug, [facility] [address] [facility] [id number], [place] [id number] Jul, [facility] [place] [facility] [address] [facility] [address] [id number], [place] [address]- 2546 Jul, [facility] [address] [facility] [id number], [place] 482923319 Jun, [facility] [place] [facility] [address], [place] [address]- 2546 Jun, [facility] [place] [facility] [address] [facility] [address] [id number], [place] [address]- 2546 Jun, [facility] [address] [facility] [id number], [place] 036204082 Jun, [facility] [address] [facility] [id number], [place] 755405261 May, [facility] [address] [address]- 2546 May, [facility] [place] [facility] [address], [place] [address]- 2546 May, [facility] [address] [facility] [id number], [place] 259040916 May, [facility] [place] [facility] [address] [address]- 2546 May, [facility] [id number], [place] 36[address]00316 May, [facility] [place] [facility] [address] [facility] [address] [id number], [place] [address]- 2546 May, [facility] [address] [facility] [id number], [place] 444884369 May, [facility] [place] [facility] [address], [place] [address]- 2546 Apr, [facility] [place] [facility] [id number] [address]- 2546 Apr, [facility] [id number], [place] [id number] Apr, [facility] [address] [facility] [address] [id number], [place] [address]- 8747 Apr, [facility] [address] [facility] [address] [id number], [place] [address]- 5546 Mar, [facility] [address] [id number] [place] 227624191 Mar, [facility] [address] [id number] [place] [id number] Feb, [facility] [address] [id number] [place] 616177775 Feb, [facility] [address] [id number] [place] 048231353 Feb, [facility] [address] [id number] [place] 036840556 Jan, [facility] [address] [facility] [address] [id number], [place] [address]- 5347 Jan, [facility] [address] [id number] [place] [id number] Jan, [facility] [address] [id number] [place] [id number] December, [facility] [place] [facility] [address] [facility] [address] [id number], [place] [address]- 1371 December, [facility] [address] [id number] [place] [id number] December, [facility] [address] [id number] [place] [id number] December, [facility] [address] [id number] [place] 669569842 Nov, [facility] [address] [id number] [place] 450324866 Nov, [facility] [place] [facility] [address] [facility] [address] [id number], [place] [address]- 8214 Nov, [facility] [address] [id number] [place] [id number] Nov, [facility] [address] [id number] [place] [id number] Oct, [facility] [address] [id number] [place] 626739149 Oct, [facility] [address] [id number] [place] 83699300[place] Oct, [facility] [address] [id number] [place] 811497746 Oct, [facility] [address] [id number] [place] [id number] Sep, [facility] [address] [id number] [place] 087133764 Sep, [facility] [address] [facility] [address] [id number] [place] [address]- 4978 Aug, [facility] [address] [facility] [address] [id number], [place] [address]- 0139 Aug, [facility] [address] [id number] [place] [id number] Aug, [facility] [address] [id number] [place] [id number] Aug, [facility] [address] [id number] [place] [id number] Jul, [facility] [address] [id number] [place] [id number] Jul, [facility] [id number] [address] Jul, [facility] [place] [facility] [address] [facility] [id number], [place] [address] Jul, [facility] [address] [id number] [place] [id number] Jul, [facility] [address] [facility] [id number] [address] Jul, [facility] [address] [id number] [place] [id number] Jul, [facility] [id number] [address] Jul, [facility] [place] [facility] [address] [facility] [id number], [place] [address] Jul, [facility] [address] [facility] [id number] [id number] Jul, [facility] [address] [facility] [id number] [id number] Jul, [facility] [place] [facility] [address] [id number] [address] Jul, [facility] [address] [facility] [id number][place] [id number] Jun, [facility] [place] [facility] [id number], [place] [address] Jun, [facility] [place] [facility] [address] [id number] [address] Jun, [facility] [id number] [place] [id number] Jun, [facility] [place] [facility] [address] [id number] [address] Jun, [facility] [place] [facility] [id number], [place] [address] Jun, [facility] [id number] [id number] Jun, [facility] [place] [facility] [id number], [place] [address] Jun, [facility] [address] [facility] [id number] [id number] Jun, [facility] [place] [facility] [address] [facility] [address] [id number] [address] Jun, [facility] [place] [address] [facility] [id number] [id number] May, [facility] [place] [facility] [id number], [place] [address] Apr, [facility] [place] [facility] [id number] [address] Apr, [facility] [place] [address] [id number] [place] [id number] Apr, [facility] [place] [address] [id number] [place] [id number] Apr, [facility] [place] [address] [id number] [place] [id number] Apr, [facility] [place] [address] [id number] [place] [id number] Apr, [facility] [place] [address] [id number] [place] [id number] Apr, [facility] [place] [address] [id number] [place] [id number] Mar, [facility] [place] [address] [id number] [place] [id number] Mar, [facility] [place] [address] [id number] [place] [id number] Mar, [facility] [place] [address] [id number] [place] [id number] Mar, [facility] [place] [address] [id number] [place] [id number] Mar, [facility] [place] [address] [id number] [place] [id number] Mar, [facility] [place] [address] [id number] [place] [id number] Mar, [facility] [place] [address] [id number] [place] [id number] Feb, [facility] [place] [address] [id number] [place] [id number] Feb, [facility] [place] [address] [id number] [place] [id number] Jan, [facility] [place] [address] [id number] [place] [id number] Jan, [facility] [place] [address] [id number] [place] [id number] Jan, [facility] [place] [address] [id number] [place] [id number] Jan, [facility] [place] [address] [id number] [place] [id number] Jan, [facility] [place] [address] [id number] [place] [id number] Jan, [facility] [place] [address] [id number] [place] [id number] December, [facility] [place] [address] [id number] [place] [id number] Nov, [facility] [place] [address] [id number] [place] [id number] Oct, [facility] [place] [address] [id number] [place] [id number] Oct, [facility] [place] [address] [id number] [place] [id number] Oct, [facility] [address] [address] Oct, [facility] [place] [address] [id number] [place] [id number] Oct, [facility] [place] [address] [id number] [place] [id number] Oct, [facility] [place] [address] [id number] [place] [id number] Oct, [facility] [place] [address] [id number] [place] [id number] Oct, [facility] [place] [address] [id number] [place] [id number] Oct, [facility] [place] [address] [id number] [place] [id number] Oct, [facility] [place] [address] [id number] [place] [id number] Sep, [facility] [address] [id number] [id number] Sep, [facility] [place] [address] [id number] [place] [id number] Sep, [facility] [place] [address] [id number] [place] [id number] Aug, [facility] [place] [address] [id number] [place] [id number] Aug, [facility] [place] [address] [id number] [place] [id number] Aug, [facility] [address] [id number] [place] [address] Aug, [facility] [address] [id number] [place] [address] Jul, [facility] [place] [facility] [address] [id number] [place] [address] Jul, [facility] [place] [facility] [address] [id number] [place] [address] Jul, [facility] [place] [facility] [address] [facility] [address] [id number] [place] [address] Jul, [facility] [place] [facility] [address] [facility] [address] [id number] [place] [address] Jun, [facility] [place] [facility] [address] [id number] [place] [address] Jun, [facility] [place] [facility] [address] [id number] [place] [address] May, [facility] [place] [facility] [address] [facility] [address] [id number] [place] [address] May, [facility] [place] [facility] [address] [id number] [place] [address] December, [facility] [place] [facility] [address] [id number] [place] [address] December, [facility] [place] [facility] [address] [id number] [place] [address] Aug, [facility] [place] [facility] [address] [id number] [place] [address]- [address]46 Jul, [facility] [place] [facility] [address] [id number] [place] [address] Jul, [facility] [address] [id number] [place] [address] 23 Jul, 2010 [facility] [place] [facility] [address] [id number] [place] [address] 16 Jul, 2010 [facility] [place] [facility] [address] [id number] [place] [address] 16 Jul, 2010 [facility] [place] [facility] [address] [id number] [place] [address] 03 Jul, 2010 [facility] [address] [id number] [place] [address] 30 Jun, 2010 [facility] [place] [facility] [address] [id number] [place] [address] 30 Jun, 2010 [facility] [place] [facility] [address] [id number] [place] [address] 29 Jun, 2010 [facility] [place] [facility] [address] [id number] [place] [address]- [address] Jun, [facility] [place] [facility] [address] [id number] [place] [address] Jun, [facility] [place] [facility] [address] [id number], [place] [address] 14 May, 2010 [facility] [place] [facility] [address] [id number], [place] [address] December, [facility] [place] [facility] [address] [id number], [place] [address] 14 Dec, 2009 [facility] [place] [facility] [address] [id number] [place] [address] Oct, [facility] [place] [facility] [address] [id number], [place] [address] 31 Jul, 2009 [facility] [place] [facility] [address] [id number] [place] [address] 24 Jul, 2009 [facility] [place] [facility] [address] [facility] [address] [id number] [place] [address] Jul, [facility] [address] [facility] [address] [id number] [place] [address] Jun, [facility] [address] [facility] [address] [id number], [place] [address] May, [facility] [address] [facility] [address] [id number], [place] [address] Jun, IMMUNIZATIONS No Known Immunizations SOCIAL HISTORY Never Assessed REASON FOR VISIT Lab [facility] PLAN OF CARE Activity Details Pending Test PHOSPHORUS VITAL SIGNS MEDICATIONS Unknown Medications RESULTS No Results PROCEDURES Procedure Date Ordered Result Body Site LAB NOT BILLED BY [facility] May 15, 2017 Hemoglobin Test Send Out 0 dollar May 15, 2017 VENIPUNCT, ROUTINE* May 15, 2017 INSTRUCTIONS MEDICATIONS ADMINISTERED No Known Medications [...]
--- OUTSIDE RECORDS SUMMARY | 2018-07-11 11:19 | XMS REPORT ---
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 Name Role Phone JOSEP GONG Unavailable PROBLEMS Type Condition ICD9-CM Code WDR27-JI Code Onset Dates Condition Status SNOMED Code Problem Chronic bronchitis, unspecified chronic bronchitis type J42 Active 81512781 Problem Vitamin D deficiency, unspecified E55.9 Active 69408655 Problem Chronic obstructive pulmonary disease with acute exacerbation J44.1 Active 606456872 Problem Gastric reflux K21.9 Active 660110042 Problem Right knee pain M25.561 Active 32624415 Problem Paroxysmal atrial fibrillation I48.0 Active 910160044 Problem Sprain of right knee, unspecified ligament, initial encounter S83.91XA Active 48003918 Problem Abscess L02.91 Active 866705626 Problem Obesity, unspecified E66.9 Active 18897647396508 Problem Chronic obstructive pulmonary disease, unspecified COPD type J44.9 Active 07434870 Problem Chronic congestive heart failure, unspecified heart failure type I50.9 Active 90132371 Problem Body mass index (BMI) of 40.0-44.9 in adult Z68.41 Active 312570589 Problem Hyperlipidemia, unspecified E78.5 Active 07549108 Problem Chronic renal disease, unspecified stage N18.9 Active 058258502 Problem Type 2 diabetes mellitus with other diabetic kidney complication E11.29 Active 879374894 Problem Essential hypertension I10 Active 66334241 Problem Proteinuria R80.9 Active 79881605 Problem Renal osteodystrophy N25.0 Active 17214012 Problem Chronic kidney disease, stage IV (severe) N18.4 Active 908072088 Problem Essential (primary) hypertension I10 Active 92721509 Problem Venous (peripheral) insufficiency I87.2 Active 94097681 Problem Anemia of renal disease D63.1 Active 599929706 Problem Type 2 diabetes mellitus with diabetic nephropathy E11.21 Active 983066156 ALLERGIES No Information ENCOUNTERS Encounter Location Date Diagnosis [place] [id number] [id number] Mar, [address] [id number] [place] [address] [id number] Feb, Type 2 diabetes mellitus with other diabetic kidney complication E11.29 [address] [id number] Jan, Body mass index (BMI) 70 or greater, adult Z68.45 and Type 2 diabetes mellitus with other diabetic kidney complication E11.29 [address] [place] [address] [id number] Nov, Body mass index (BMI) 70 or greater, adult Z68.45 ; Chronic obstructive pulmonary disease, unspecified COPD type J44.9 ; Chronic kidney disease, stage IV (severe) N18.4 and Gastric reflux K21.9 [id number] [place] [address] [id number] Oct, Body mass index (BMI) 70 or greater, adult Z68.45 ; Type 2 diabetes mellitus with other diabetic kidney complication E11.29 ; Chronic obstructive pulmonary disease with acute exacerbation J44.1 and Paroxysmal atrial fibrillation I48.[address] [place] [address] [id number] Oct, [id number] [place] [address] [id number] Oct, Type 2 diabetes mellitus with diabetic nephropathy E11.21 ; Chronic renal disease, unspecified stage N18.9 ; Chronic congestive heart failure, unspecified heart failure type I50.9 and Chronic obstructive pulmonary disease with acute exacerbation J44.1 [address] [id number] Sep, [address] [place] [address] [id number] Sep, [address] [id number] [place] [address] [id number] Sep, [facility] [address] [address] Sep, Type 2 diabetes mellitus with diabetic nephropathy E11.[address] [place] [address] [id number] Aug, Influenza J11.1 and Essential (primary) hypertension I10 [facility] [id number] [place] [address] 2547 Aug, [id number] [place] [address] [id number] Jul, Type 2 diabetes mellitus with diabetic nephropathy E11.21 ; Essential ( primary) hypertension I10 and Chronic obstructive pulmonary disease, unspecified COPD type J44.9 [facility] [address] [id number] Jun, Dental caries K02.[address] [id number] May, Cough R05 ; Chronic obstructive pulmonary disease, unspecified COPD type J44.9 ; Shortness of breath R06.02 ; Obesity, unspecified E66.9 ; Body mass index (BMI) of 40.0-44.9 in adult Z68.41 and Encounter for immunization Z23 [facility] [address] [id number] May, Dental examination Z01.20 [address] [id number] [place] [address] [id number] May, Essential hypertension I10 [place] [id number] [place] [address] [id number] Apr, Anemia of renal disease D63.1 ; Type 2 diabetes mellitus with other diabetic kidney complication E11.29 ; Vitamin D deficiency, unspecified E55.9 and Chronic renal disease, unspecified stage N18.9 [facility] [address] [place] [address]- 3409 Mar, [address] [id number] [place] [address] [id number] Mar, Type 2 diabetes mellitus with other diabetic kidney complication E11.29 ; Essential hypertension I10 ; Chronic renal disease, unspecified stage N18.9 and Chronic obstructive pulmonary disease with acute exacerbation J44.1 [place] [id number] [place] [id number] Feb, [facility] [id number] [place] [address] [id number] Feb, Chronic renal disease, unspecified stage N18.9 ; Essential (primary) hypertension I10 and Type 2 diabetes mellitus with other diabetic kidney complication E11.29 [facility] [id number] [place] [address] [id number] Feb, Type 2 diabetes mellitus with other diabetic kidney complication E11.29 ; Chronic kidney disease, stage IV (severe) N18.4 ; Renal osteodystrophy N25.0 ; Anemia of renal disease D63.1 and Essential (primary) hypertension I10 [facility] [id number] [place] [address] [id number] December, [id number] [place] [address] [id number] December, Chronic obstructive pulmonary disease with acute exacerbation J44.1 ; Essential (primary) hypertension I10 ; Low back pain M54.5 and Right knee pain M25.561 [address] [id number] [place] [address] [id number] Nov, Chronic renal disease, unspecified stage N18.9 ; Essential hypertension I10 ; Type 2 diabetes mellitus with other diabetic kidney complication E11.29 and Chronic obstructive pulmonary disease with acute exacerbation J44.1 [facility] [address] [place] [address] [id number] Nov, Chronic renal disease, unspecified stage N18.9 ; Hyperlipidemia, unspecified E78.5 and Essential hypertension I10 [facility] [id number] [place] [address] [id number] Oct, Chronic bronchitis, unspecified chronic bronchitis type J42 and Type 2 diabetes mellitus with diabetic nephropathy E11.21 [address] [id number] [place] [address] [id number] Sep, Chronic bronchitis, unspecified chronic bronchitis type J42 ; Essential ( primary) hypertension I10 and Type 2 diabetes mellitus with other diabetic kidney complication E11.29 [facility] [id number] [place] [address] [id number] Sep, Chronic obstructive pulmonary disease with acute exacerbation J44.1 [address] [id number] Aug, Type 2 diabetes mellitus with diabetic nephropathy E11.21 ; Chronic kidney disease, stage IV (severe) N18.4 ; Essential (primary) hypertension I10 and Encounter for immunization Z23 [address] [place] [address] [id number] Aug, Chronic kidney disease, stage IV (severe) N18.4 ; Type 2 diabetes mellitus with diabetic nephropathy E11.21 and Type 2 diabetes mellitus with hyperglycemia E11.65 [address] [id number] [place] [address] [id number] May, Anemia of renal disease D63.1 ; Essential (primary) hypertension I10 ; Renal osteodystrophy N25.0 ; Proteinuria R80.9 ; Chronic kidney disease, stage IV (severe) N18.4 and Type 2 diabetes mellitus with other diabetic kidney complication E11.29 [address] [place] [address] [id number] Mar, Type 2 diabetes mellitus with other diabetic kidney complication E11.29 ; Essential hypertension I10 ; Chronic renal disease, unspecified stage N18.9 and TMJ (temporomandibular joint disorder) M26.[address] [place] [address] [id number] Jan, Chronic kidney disease, stage IV (severe) N18.4 and Hyperlipidemia, unspecified E78.[address] [place] [address] [id number] December, Type 2 diabetes mellitus with other diabetic kidney complication E11.29 ; Abscess L02.91 and Chronic kidney disease, stage IV (severe) N18.[address] [place] [address] [id number] December, Abscess L02.[address] [place] [address] [id number] December, [place] [id number] [place] [address] [id number] Oct, Renal osteodystrophy N25.0 ; Chronic kidney disease, stage IV (severe) N18.4 and Vitamin D deficiency E55.9 [address] [address] [place] [address] [id number] Oct, [address] [id number] Sep, Type 2 diabetes mellitus with other diabetic kidney complication E11.29 ; Essential hypertension I10 and Chronic airway obstruction, not elsewhere classified J44.9 [address] [id number] [place] [address] [id number] Sep, [address] [id number] Aug, [address] [address] [place] [address] [id number] Jul, [address] [id number] Jul, [address] [id number] Jul, Chronic kidney disease, stage IV (severe) N18.4 ; Renal osteodystrophy N25.0 and Proteinuria R80.9 [facility] [id number] [place] [address] 60[address]- 0056 Jul, [facility] [address] [place] [id number] [place] [address] [id number] Jun, [facility] [address] [place] [address] [id number] [place] [address] [id number] Jun, [place] [id number] [place] [address] [id number] Jun, Diabetes with renal manifestations, type II or unspecified type, uncontrolled 250.42 and Right knee pain M25.561 [facility] [address] [address] May, [place] [address] [id number] [place] [address] [id number] May, Encounter for immunization Z23 ; Abscess L02.91 and Sprain of right knee, unspecified ligament, initial encounter S83.91XA [address] [id number] May, Abscess L02.91 [facility] [address] [id number] [id number] May, [address] [place] [address] [id number] Apr, Diabetes with renal manifestations, type II or unspecified type, uncontrolled 250.42 and PPV23 (PNEUMOVAX) DX V03.82 [address] [id number] [place] [address] [id number] Mar, [place] [id number] [place] [address] [id number] Mar, Proteinuria 791.0 ; Renal osteodystrophy 588.0 ; Chronic kidney disease, Stage IV (severe) 585.4 ; Benign essential hypertension 401.1 and Vitamin D deficiency 268.9 [id number] [place] [address] [id number] Feb, Avulsion fracture of ankle 824.[address] [place] [address] [id number] Feb, [address] [id number] [place] [address] [id number] Feb, [place] [address] [place] [address] [id number] Feb, Diabetes with renal manifestations, type II or unspecified type, uncontrolled 250.42 [address] [id number] [place] [address] [id number] Jan, Diabetes with renal manifestations, type II or unspecified type, uncontrolled 250.42 [address] [address] [place] [address] [id number] December, Diabetes with renal manifestations, type II or unspecified type, uncontrolled 250.42 and Unspecified essential hypertension 401.9 [address] [id number] [place] [address] [id number] December, [place] [id number] [place] [address] [id number] December, [facility] [address] [id number] [place] [id number] December, Essential hypertension 401.9 [facility] [address] [id number] [place] [id number] Nov, Essential hypertension 401.9 [facility] [address] [id number] [place] [id number] Nov, [facility] [address] [id number] [place] [id number] Nov, [facility] [address] [id number] [place] [id number] Nov, [facility] [place] [facility] [address] [place] [address] 93238- 2546 Nov, [facility] [place] [facility] [address], [place] [address]- 2546 Nov, [facility] [id number] [place] [id number] Oct, [facility] [place] [facility] [address], [place] [address]- 4[address] Oct, [facility] [id number] [place] [id number] Oct, [facility] [place] [facility] [address], [place] [address]- 2546 Oct, [facility] [place] [facility] [address], [place] [address]- 2546 Oct, [facility] [address] [id number] [id number] Oct, [facility] [address] [id number] [id number] Oct, [facility] [place] [facility] [address], [place] [address]- 2546 Oct, [facility] [place] [facility] [id number], [place] [address]- 2546 Sep, [facility] [id number] [place] [id number] Sep, [facility] [address] [id number] [place] [id number] Sep, [facility] [place] [facility] [address] [facility] [id number] [place] [address]- 9546 Sep, [facility] [address] [facility] [id number] [place] [id number] Aug, [facility] [place] [facility] [address] [facility] [id number], [place] [address]- 7236 Aug, [facility] [address] [facility] [id number] [place] [id number] Aug, [facility] [place] [facility] [address] [facility] [id number], [place] [address]- 2726 Aug, [facility] [address] [facility] [id number] [place] [id number] Aug, [facility] [place] [facility] [address] [facility] [id number], [place] [address]- 1523 Aug, [facility] [place] [facility] [address] [facility] [id number], [place] [address]- 7382 Aug, [facility] [address] [facility] [id number] [place] [id number] Aug, [facility] [place] [facility] [address] [facility] [id number], [place] [address]- 1521 Jul, [facility] [place] [facility] [address] [facility] [id number], [place] [address]- 6107 Jul, [facility] [address] [facility] [id number] [place] [id number] Jul, [facility] [place] [facility] [address] [facility] [id number], [place] [address]- 0202 Jul, [facility] [address] [facility] [id number] [place] [id number] Jul, [facility] [place] [facility] [address] [facility] [id number], [place] [address]- 7900 Jul, [facility] [address] [id number] [place] [id number] Jul, [facility] [place] [facility] [address] [facility] [id number], [place] [address]- 3636 Jul, [facility] [place] [facility] [address] [facility] [id number] [place] [address]- 2546 May, [facility] [address] [id number] [place] [id number] May, [facility] [address] [facility] [id number] [place] [id number] May, [facility] [place] [facility] [address] [facility] [id number], [place] [address]- 3616 May, [facility] [address] [facility] [id number] [place] [id number] Apr, [facility] [place] [facility] [address] [facility] [id number], [place] [address]- 7346 Apr, [facility] [address] [facility] [id number] [place] [id number] Mar, [facility] [place] [facility] [address] [facility] [id number], [place] [address]- 1837 Mar, [facility] [place] [facility] [address] [facility] [id number], [place] [address]- 0856 Mar, [facility] [place] [facility] [address] [facility] [id number], [place] [address]- 2206 Mar, [facility] [address] [facility] [id number] [place] [id number] Mar, [facility] [address] [facility] [id number] [place] 140348088 Feb, [facility] [place] [facility] [address] [facility] [id number], [place] [address]- 0414 Feb, [facility] [address] [facility] [id number] [place] [id number] Jan, [facility] [place] [facility] [address] [facility] [id number], [place] [address]- 5587 Jan, [facility] [place] [facility] [address] [id number] [place] [address]- 3806 Jan, [facility] [address] [id number] [place] [id number] Jan, [facility] [address] [facility] [id number] [place] [id number] Jan, [facility] [place] [facility] [address] [facility] [id number] [place] [address]- 9786 Jan, [facility] [address] [facility] [id number] [place] [id number] December, [facility] [place] [facility] [address] [facility] [id number] [place] [address]- 1446 December, [facility] [place] [facility] [address] [facility] [id number] [place] [address]- 8116 Nov, [facility] [place] [facility] [address] [facility] [id number] [place] [address]- 1842 Nov, [facility] [address] [facility] [id number] [place] 934891265 Nov, [facility] [place] [facility] [address] [facility] [id number], [place] [address]- 9336 Nov, [facility] [address] [facility] [id number] [place] [id number] Oct, [facility] [place] [facility] [address] [facility] [id number], [place] [address]- 9636 Oct, [facility] [address] [facility] [id number] [place] [id number] Oct, [facility] [place] [facility] [address] [facility] [id number] [place] [address]- 0296 Oct, [facility] [address] [facility] [id number] [place] [id number] Oct, [facility] [place] [facility] [address] [facility] [id number], [place] [address]- 1886 Oct, [facility] [address] [facility] [id number] [place] [id number] Oct, [facility] [place] [facility] [address] [facility] [id number], [place] [address]- 7040 Oct, [facility] [address] [id number] [place] [id number] Aug, [facility] [place] [facility] [address] [facility] [id number], [place] [address]- 2976 Aug, [facility] [address] [facility] [id number] [place] [id number] Jul, [facility] [place] [facility] [address] [facility] [id number] [place] [address]- 2056 Jul, [facility] [address] [facility] [id number] [place] [id number] Jun, [facility] [place] [facility] [id number], [place] [address]- 2026 Jun, [facility] [place] [facility] [address], [place] [address]- 8729 Jun, [facility] [address] [facility] [id number] [place] [id number] Jun, [facility] [address] [facility] [id number] [place] [id number] May, [facility] [place] [facility] [address] [id number], [place] [address]- 3896 May, [facility] [place] [facility] [address] [facility] [id number], [place] [address]- 6486 May, [facility] [address] [facility] [id number] [place] 127144932 May, [facility] [place] [facility] [address] [facility] [id number], [place] [address]- 8206 May, [facility] [address] [facility] [id number] [place] 619868373 May, [facility] [place] [facility] [address] [facility] [id number], [place] [address]- 6916 May, [facility] [address] [facility] [id number] [place] [id number] May, [facility] [place] [facility] [address] [facility] [id number] [place] [address]- 4196 Apr, [facility] [place] [facility] [address] [facility] [id number], [place] [address]- 1566 Apr, [facility] [address] [id number] [place] [id number] Apr, [facility] [place] [facility] [address] [facility] [id number], [place] [address]- 2546 Apr, [facility] [place] [facility] [address] [facility] [id number] [place] [address]- 1521 Mar, [facility] [address] [id number] [place] [id number] Mar, [facility] [address] [id number] [place] [id number] Feb, [facility] [address] [id number] [place] [id number] Feb, [facility] [address] [id number] [place] [id number] Feb, [facility] [address] [id number] [place] [id number] Jan, [facility] [address] [facility] [id number], [place] [address]- 2546 Jan, [facility] [address] [id number] [place] 034673728 Jan, [facility] [address] [id number] [place] 878661431 December, [facility] [place] [facility] [address] [facility] [id number] [place] [address]- 2546 December, [facility] [address] [id number] [place] [id number] December, [facility] [address] [id number] [place] [id number] December, [facility] [address] [id number] [place] 738236485 Nov, [facility] [address] [id number] [place] [id number] 15 Nov, 2012 [facility] [place] [facility] [address] [facility] [id number], [place] [address]- 6266 Nov, [facility] [address] [id number] [place] [id number] Nov, [facility] [address] [id number] [place] [id number] Oct, [facility] [address] [id number] [place] [id number] Oct, [facility] [address] [id number] [place] [id number] Oct, [facility] [address] [id number] [place] [id number] Oct, [facility] [address] [id number] [place] [id number] Sep, [facility] [address] [id number] [place] [id number] Sep, [facility] [place] [facility] [address] [facility] [id number], [place] [address] Aug, [facility] [place] [facility] [address] [facility] [id number], [place] [address] Aug, [facility] [address] [id number] [place] [id number] Aug, [facility] [address] [id number] [place] [id number] Aug, [facility] [address] [id number] [place] [id number] Jul, [facility] [address] [id number] [place] [id number] Jul, [facility] [place] [facility] [address] [facility] [id number], [place] [address] Jul, [facility] [place] [facility] [address] [facility] [id number], [place] [address] Jul, [facility] [address] [id number] [place] [id number] Jul, [facility] [place] [facility] [address] [id number] [place] [address] Jul, [facility] [address] [id number] [place] [id number] Jul, [facility] [place] [facility] [id number] [address] Jul, [facility] [place] [facility] [address] [id number], [place] [address] Jul, [facility] [address] [id number] [place] [id number] Jul, [facility] [address] [id number] [place] [id number] Jul, [facility] [place] [facility] [id number], [place] [address] Jul, [facility] [place] [address] [id number] [place] [id number] Jun, [facility] [place] [facility] [id number], [place] [address] Jun, [facility] [place] [facility] [id number], [place] [address] Jun, [facility] [place] [address] [facility] [id number] [place] [id number] Jun, [facility] [place] [facility] [id number], [place] [address] Jun, [facility] [place] [facility] [address] [facility] [id number], [place] [address] Jun, [facility] [place] [address] [facility] [id number] [place] [id number] Jun, [facility] [place] [facility] [address] [facility] [id number], [place] [address] Jun, [facility] [place] [address] [facility] [id number] [place] [id number] Jun, [facility] [place] [facility] [id number], [place] [address] Jun, [facility] [place] [address] [id number] [place] [id number] May, [facility] [address] [facility] [id number], [place] [address] Apr, [facility] [address] [facility] [id number], [place] [address] Apr, [facility] [place] [address] [id number] [place] [id number] Apr, [facility] [place] [address] [id number] [place] [id number] Apr, [facility] [place] [address] [id number] [place] [id number] Apr, [facility] [place] [address] [id number] [place] [id number] Apr, [facility] [place] [address] [id number] [place] [id number] Apr, [facility] [place] [address] [id number] [place] [id number] Mar, [facility] [place] [address] [id number] [place] [id number] Mar, [facility] [place] [address] [id number] [place] [id number] Mar, [facility] [place] [address] [id number] [place] [id number] Mar, [facility] [place] [address] [id number] [place] [id number] Mar, [facility] [place] [address] [id number] [place] [id number] Mar, [facility] [place] [address] [id number] [place] [id number] Mar, [facility] [place] [address] [id number] [place] [id number] Feb, [facility] [place] [address] [id number] [place] [id number] Feb, [facility] [place] [address] [id number] [place] [id number] Jan, [facility] [place] [address] [id number] [place] [id number] Jan, [facility] [place] [address] [id number] [place] [id number] Jan, [facility] [place] [address] [id number] [place] [id number] Jan, [facility] [place] [address] [id number] [place] [id number] Jan, [facility] [place] [address] [id number] [place] [id number] Jan, [facility] [place] [address] [id number] [place] [id number] December, [facility] [place] [address] [id number] [place] [id number] Nov, [facility] [place] [address] [id number] [place] [id number] Oct, [facility] [place] [address] [id number] [place] [id number] Oct, [facility] [place] [address] [id number] [place] [id number] Oct, [facility] [place] [address] [facility] [id number], [place] [address] Oct, [facility] [place] [address] [id number] [place] [id number] Oct, [facility] [place] [address] [id number] [place] [id number] Oct, [facility] [place] [address] [id number] [place] [id number] Oct, [facility] [place] [address] [id number] [place] [id number] Oct, [facility] [place] [address] [id number] [place] [id number] Oct, [facility] [place] [address] [id number] [place] [id number] Oct, [facility] [place] [address] [id number] [place] [id number] Sep, [facility] [address] [facility] [id number], [place] [address] Sep, [facility] [place] [address] [id number] [place] [id number] Sep, [facility] [place] [address] [id number] [place] [id number] Aug, [facility] [place] [address] [id number] [place] [id number] Aug, [facility] [place] [address] [id number] [place] [id number] Aug, [facility] [address] [facility] [id number] [place] [address] Aug, [facility] [place] [facility] [address] [id number], [place] [address] Jul, [facility] [place] [facility] [id number] [place] [address] Jul, [facility] [place] [facility] [address] [id number], [place] [address] Jul, [facility] [place] [facility] [address] [id number], [place] [address] Jul, [facility] [place] [facility] [address] [id number], [place] [address] Jun, [facility] [place] [facility] [id number], [place] [address] Jun, [facility] [place] [facility] [address] [facility] [id number], [place] [address] May, [facility] [place] [facility] [address] [facility] [id number], [place] [address] May, [facility] [place] [facility] [address] [facility] [id number], [place] [address] December, [facility] [place] [facility] [address] [id number], [place] [address] December, [facility] [address] [id number] [place] [address] 14 Aug, 2010 [facility] [place] [facility] [address] [id number] [place] [address] 29 Jul, 2010 [facility] [place] [facility] [address] [id number] [place] [address] 28 Jul, 2010 [facility] [place] [facility] [address] [id number] [place] [address] Jul, [facility] [place] [facility] [address] [id number] [place] [address] Jul, [facility] [place] [facility] [address] [id number] [place] [address] 16 Jul, 2010 [facility] [place] [facility] [address] [id number] [place] [address] Jul, [facility] [place] [facility] [address] [id number] [place] [address] 30 Jun, 2010 [facility] [place] [facility] [address] [id number] [place] [address]- [address] 30 Jun, 2010 [facility] [place] [facility] [address] [id number], [place] [address] 29 Jun, 2010 [facility] [place] [facility] [address] [id number], [place] [address] Jun, [facility] [place] [facility] [address] [id number], [place] [address] Jun, [facility] [place] [facility] [address] [id number] [place] [address]- [address] 14 May, 2010 [facility] [place] [facility] [address] [id number], [place] [address] December, [facility] [place] [facility] [address] [id number], [place] [address] December, [facility] [place] [facility] [address] [id number], [place] [address] Oct, [facility] [address] [facility] [id number], [place] [address] Jul, [facility] [address] [facility] [id number], [place] [address] Jul, [facility] [address] [facility] [id number], [place] [address] Jul, [facility] [address] [facility] [id number][place] Jun, [facility] [address] [facility] [id number], [place] [address] May, [facility] [address] [facility] [id number], [place] [address] Jun, IMMUNIZATIONS No Known Immunizations SOCIAL HISTORY Never Assessed REASON FOR VISIT RX-Levermir PLAN OF CARE VITAL SIGNS MEDICATIONS Medication Instructions Dosage Frequency Start Date End Date Duration Status Levemir 100 UNIT/ML Subcutaneous 2 times a day 53 units in AM & 40 units at HS 12h Sep, Active RESULTS No Results PROCEDURES No Known [...]
--- OUTSIDE RECORDS SUMMARY | 2018-07-11 11:21 | XMS REPORT ---
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 Name Role Phone JOSEP GONG Unavailable PROBLEMS Type Condition ICD9-CM Code RQI55-KT Code Onset Dates Condition Status SNOMED Code Problem Chronic bronchitis, unspecified chronic bronchitis type J42 Active 77753473 Problem Vitamin D deficiency, unspecified E55.9 Active 33355070 Problem Chronic obstructive pulmonary disease with acute exacerbation J44.1 Active 244588740 Problem Gastric reflux K21.9 Active 877421485 Problem Right knee pain M25.561 Active 56490405 Problem Paroxysmal atrial fibrillation I48.0 Active 816127690 Problem Sprain of right knee, unspecified ligament, initial encounter S83.91XA Active 21780430 Problem Abscess L02.91 Active 672466944 Problem Obesity, unspecified E66.9 Active 42325228393006 Problem Chronic obstructive pulmonary disease, unspecified COPD type J44.9 Active 26762308 Problem Chronic congestive heart failure, unspecified heart failure type I50.9 Active 98694740 Problem Body mass index (BMI) of 40.0-44.9 in adult Z68.41 Active 042217870 Problem Hyperlipidemia, unspecified E78.5 Active 02215251 Problem Chronic renal disease, unspecified stage N18.9 Active 857090158 Problem Type 2 diabetes mellitus with other diabetic kidney complication E11.29 Active 361390394 Problem Essential hypertension I10 Active 89711114 Problem Proteinuria R80.9 Active 06496871 Problem Renal osteodystrophy N25.0 Active 50023908 Problem Chronic kidney disease, stage IV (severe) N18.4 Active 284698754 Problem Essential (primary) hypertension I10 Active 29245934 Problem Venous (peripheral) insufficiency I87.2 Active 05569688 Problem Anemia of renal disease D63.1 Active 049255056 Problem Type 2 diabetes mellitus with diabetic nephropathy E11.21 Active 392928704 ALLERGIES No Information ENCOUNTERS Encounter Location Date Diagnosis [id number] [place] [address] [id number] Jan, Body mass index (BMI) 70 or greater, adult Z68.45 and Type 2 diabetes mellitus with other diabetic kidney complication E11.29 [place] [id number] [place] [address] [id number] Nov, Body mass index (BMI) 70 or greater, adult Z68.45 ; Chronic obstructive pulmonary disease, unspecified COPD type J44.9 ; Chronic kidney disease, stage IV (severe) N18.4 and Gastric reflux K21.9 [place] [id number] [place] [address] [id number] Oct, Body mass index (BMI) 70 or greater, adult Z68.45 ; Type 2 diabetes mellitus with other diabetic kidney complication E11.29 ; Chronic obstructive pulmonary disease with acute exacerbation J44.1 and Paroxysmal atrial fibrillation I48.0 [place] [id number] [place] [address] [id number] Oct, [address] [id number] Oct, Type 2 diabetes mellitus with diabetic nephropathy E11.21 ; Chronic renal disease, unspecified stage N18.9 ; Chronic congestive heart failure, unspecified heart failure type I50.9 and Chronic obstructive pulmonary disease with acute exacerbation J44.1 [place] [id number] [place] [address] [id number] Sep, [place] [id number] [place] [address] [id number] Sep, [place] [id number] [place] [address] [id number] Sep, [facility] [address] [id number] Sep, Type 2 diabetes mellitus with diabetic nephropathy E11.21 [place] [id number] [place] [address] [id number] Aug, Influenza J11.1 and Essential (primary) hypertension I10 [facility] [address] [address] Aug, [facility] [address] [place] [address] [id number] Jul, Type 2 diabetes mellitus with diabetic nephropathy E11.21 ; Essential ( primary) hypertension I10 and Chronic obstructive pulmonary disease, unspecified COPD type J44.9 [facility] [address] [place] [address] [id number] Jun, Dental caries K02.[address] [id number] May, Cough R05 ; Chronic obstructive pulmonary disease, unspecified COPD type J44.9 ; Shortness of breath R06.02 ; Obesity, unspecified E66.9 ; Body mass index (BMI) of 40.0-44.9 in adult Z68.41 and Encounter for immunization Z23 [facility] [address] [place] [id number] [place] [address] [id number] May, Dental examination Z01.20 [place] [id number] [place] [address] [id number] May, Essential hypertension I10 [place] [id number] [place] [address] [id number] Apr, Anemia of renal disease D63.1 ; Type 2 diabetes mellitus with other diabetic kidney complication E11.29 ; Vitamin D deficiency, unspecified E55.9 and Chronic renal disease, unspecified stage N18.9 [facility] [id number] [address] 2546 Mar, [place] [id number] [place] [address] [id number] Mar, Type 2 diabetes mellitus with other diabetic kidney complication E11.29 ; Essential hypertension I10 ; Chronic renal disease, unspecified stage N18.9 and Chronic obstructive pulmonary disease with acute exacerbation J44.1 [address] [place] [address] [id number] Feb, [place] [id number] [place] [address] [id number] Feb, Chronic renal disease, unspecified stage N18.9 ; Essential (primary) hypertension I10 and Type 2 diabetes mellitus with other diabetic kidney complication E11.29 [facility] [address] [place] [address] [id number] Feb, Type 2 diabetes mellitus with other diabetic kidney complication E11.29 ; Chronic kidney disease, stage IV (severe) N18.4 ; Renal osteodystrophy N25.0 ; Anemia of renal disease D63.1 and Essential (primary) hypertension I10 [place] [id number] [place] [address] [id number] December, [place] [address] [place] [address] [id number] December, Chronic obstructive pulmonary disease with acute exacerbation J44.1 ; Essential (primary) hypertension I10 ; Low back pain M54.5 and Right knee pain M25.561 [address] [place] [address] [id number] Nov, Chronic renal disease, unspecified stage N18.9 ; Essential hypertension I10 ; Type 2 diabetes mellitus with other diabetic kidney complication E11.29 and Chronic obstructive pulmonary disease with acute exacerbation J44.1 [address] [place] [address] [id number] Nov, Chronic renal disease, unspecified stage N18.9 ; Hyperlipidemia, unspecified E78.5 and Essential hypertension I10 [address] [place] [address] [id number] Oct, Chronic bronchitis, unspecified chronic bronchitis type J42 and Type 2 diabetes mellitus with diabetic nephropathy E11.21 [place] [id number] [place] [address] [id number] Sep, Chronic bronchitis, unspecified chronic bronchitis type J42 ; Essential ( primary) hypertension I10 and Type 2 diabetes mellitus with other diabetic kidney complication E11.29 [place] [id number] [place] [address] [id number] Sep, Chronic obstructive pulmonary disease with acute exacerbation J44.1 [address] [place] [address] [id number] Aug, Type 2 diabetes mellitus with diabetic nephropathy E11.21 ; Chronic kidney disease, stage IV (severe) N18.4 ; Essential (primary) hypertension I10 and Encounter for immunization Z23 [address] [place] [address] [id number] Aug, Chronic kidney disease, stage IV (severe) N18.4 ; Type 2 diabetes mellitus with diabetic nephropathy E11.21 and Type 2 diabetes mellitus with hyperglycemia E11.65 [address] [place] [address] [id number] May, Anemia of renal disease D63.1 ; Essential (primary) hypertension I10 ; Renal osteodystrophy N25.0 ; Proteinuria R80.9 ; Chronic kidney disease, stage IV (severe) N18.4 and Type 2 diabetes mellitus with other diabetic kidney complication E11.29 [address] [place] [address] [id number] Mar, Type 2 diabetes mellitus with other diabetic kidney complication E11.29 ; Essential hypertension I10 ; Chronic renal disease, unspecified stage N18.9 and TMJ (temporomandibular joint disorder) M26.60 [address] [place] [address] [id number] Jan, Chronic kidney disease, stage IV (severe) N18.4 and Hyperlipidemia, unspecified E78.5 [address] [place] [address] [id number] December, Type 2 diabetes mellitus with other diabetic kidney complication E11.29 ; Abscess L02.91 and Chronic kidney disease, stage IV (severe) N18.4 [address] [place] [address] [id number] December, Abscess L02.91 [address] [place] [address] [id number] December, [address] [place] [address] [id number] Oct, Renal osteodystrophy N25.0 ; Chronic kidney disease, stage IV (severe) N18.4 and Vitamin D deficiency E55.9 [address] [place] [address] [id number] Oct, [place] [id number] [id number] Sep, Type 2 diabetes mellitus with other diabetic kidney complication E11.29 ; Essential hypertension I10 and Chronic airway obstruction, not elsewhere classified J44.9 [address] [place] [address] [id number] Sep, [address] [place] [address] [id number] Aug, [place] [id number] [place] [address] [id number] Jul, [place] [address] [place] [address] [id number] Jul, [address] [id number] Jul, Chronic kidney disease, stage IV (severe) N18.4 ; Renal osteodystrophy N25.0 and Proteinuria R80.9 [place] [address] [address] Jul, [facility] [id number] [place] [address] [id number] Jun, [facility] [address] [place] [address] [id number] Jun, [address] [place] [address] [id number] Jun, Diabetes with renal manifestations, type II or unspecified type, uncontrolled 250.42 and Right knee pain M25.561 [place] [address] [place] [id number] [place] [address]- [address] May, [place] [id number] [place] [address] [id number] May, Encounter for immunization Z23 ; Abscess L02.91 and Sprain of right knee, unspecified ligament, initial encounter S83.91XA [address] [place] [address] [id number] May, Abscess L02.91 [facility] [id number] [place] [address] [id number] May, [address] [place] [address] [id number] Apr, Diabetes with renal manifestations, type II or unspecified type, uncontrolled 250.42 and PPV23 (PNEUMOVAX) DX V03.82 [address] [place] [address] [id number] Mar, [place] [id number] [place] [address] [id number] Mar, Proteinuria 791.0 ; Renal osteodystrophy 588.0 ; Chronic kidney disease, Stage IV (severe) 585.4 ; Benign essential hypertension 401.1 and Vitamin D deficiency 268.9 [place] [id number] [place] [address] [id number] Feb, Avulsion fracture of ankle 824.8 [place] [id number] [place] [address] [id number] Feb, [place] [address] [place] [address] [id number] Feb, [place] [address] [place] [address] [id number] Feb, Diabetes with renal manifestations, type II or unspecified type, uncontrolled 250.42 [place] [id number] [place] [address] [id number] Jan, Diabetes with renal manifestations, type II or unspecified type, uncontrolled 250.42 [address] [place] [address] [id number] December, Diabetes with renal manifestations, type II or unspecified type, uncontrolled 250.42 and Unspecified essential hypertension 401.9 [address] [place] [address] [id number] December, [place] [id number] [place] [address] [id number] December, [place] [address] [place] [address] [id number] December, Essential hypertension 401.9 [place] [id number] [place] [address] [id number] Nov, Essential hypertension 401.9 [facility] [address] [id number] [place] [id number] Nov, [facility] [address] [id number] [place] [id number] Nov, [facility] [address] [id number] [place] [id number] Nov, [facility] [place] [facility] [address] [facility] [id number], [place] [address]- 25[address] Nov, [facility] [place] [facility] [address] [facility] [id number], [place] [address]- [address] Nov, [facility] [address] [facility] [id number] [place] [id number] Oct, [facility] [place] [facility] [address] [address]- 7[address] Oct, [facility] [id number] [id number] Oct, [facility] [place] [facility] [address], [place] [address]- 6[address] Oct, [facility] [place] [facility] [address] [place] [address]- 0[address] Oct, [facility] [address] [facility] [id number][place] [id number] Oct, [facility] [address] [id number] [id number] Oct, [facility] [place] [facility] [address], [place] [address]- 45[address] Oct, [facility] [place] [facility] [address] [place] [id number], [place] [address]- 25[address] Sep, [facility] [address] [facility] [id number][place] [id number] Sep, [facility] [address] [facility] [id number], [place] [id number] Sep, [facility] [place] [facility] [address], [place] [address]- 1506 Sep, [facility] [address] [id number] [place] [id number] Aug, [facility] [place] [facility] [address] [id number] [place] [address]- 9166 Aug, [facility] [address] [facility] [id number] [place] [id number] Aug, [facility] [place] [facility] [address] [id number], [place] [address]- 1302 Aug, [facility] [address] [facility] [id number] [place] [id number] Aug, [facility] [place] [facility] [address] [facility] [id number] [place] [address]- 4466 Aug, [facility] [place] [facility] [address] [place] [id number] [address] Aug, [facility] [address] [place] [id number][place] [id number] Aug, [facility] [place] [facility] [address] [id number], [place] [address]- 8322 Jul, [facility] [place] [facility] [address] [place] [address] [id number], [place] [address]- 8362 Jul, [facility] [address] [facility] [id number], [place] [id number] Jul, [facility] [place] [facility] [address] [facility] [id number], [place] [address]- 7968 Jul, [facility] [address] [facility] [id number], [place] [id number] Jul, [facility] [place] [facility] [address] [id number], [place] [address]- 4[address] Jul, [facility] [address] [facility] [id number], [place] [id number] Jul, [facility] [place] [facility] [address] [facility] [id number], [place] [address]- 5112 Jul, [facility] [place] [facility] [address] [id number], [place] [address]- 7546 May, [facility] [address] [id number] [place] [id number] May, [facility] [address] [id number] [place] [id number] May, [facility] [place] [facility] [address] [id number], [place] [address]- 0028 May, [facility] [address] [id number] [place] [id number] Apr, [facility] [place] [facility] [address] [facility] [id number] [place] [address]- 1885 Apr, [facility] [address] [id number] [place] [id number] Mar, [facility] [place] [facility] [address] [facility] [id number], [place] 370650- 6103 Mar, [facility] [place] [facility] [address] [facility] [id number][place]105[place]- 0167 Mar, [facility] [place] [facility] [address] [facility] [id number], [place] [address]- 8559 Mar, [facility] [address] [id number], [place] [id number] Mar, [facility] [address] [facility] [id number], [place] [id number] Feb, [facility] [place] [facility] [address] [facility] [id number], [place]100- 3340 Feb, [facility] [address] [id number], [place] [id number] Jan, [facility] [place] [facility] [address] [facility] [id number], [place] [address]- 0299 Jan, [facility] [place] [facility] [address] [facility] [id number], [place] 258294- 4916 Jan, [facility] [address] [id number], [place] [id number] Jan, [facility] [address] [id number] [place] [id number] Jan, [facility] [place] [facility] [address] [id number] [place] [address]- 2333 Jan, [facility] [address] [facility] [id number] [place] [id number] December, [facility] [place] [facility] [address] [facility] [id number], [place] [address]- 9476 December, [facility] [place] [facility] [address] [facility] [id number] [place] [address]- 1814 Nov, [facility] [place] [facility] [address] [facility] [id number] [place] [address]- 0904 Nov, [facility] [address] [facility] [id number] [place] [id number] Nov, [facility] [place] [facility] [address] [facility] [id number], [place] [address]- 1186 Nov, [facility] [address] [facility] [id number], [place] [id number] Oct, [facility] [place] [facility] [address] [facility] [id number], [place] [address]- 1510 Oct, [facility] [address] [facility] [id number], [place] [id number] Oct, [facility] [place] [facility] [address] [facility] [id number], [place] [address]- 8026 Oct, [facility] [address] [facility] [id number], [place] [id number] Oct, [facility] [place] [facility] [address] [facility] [id number], [place] [address]- 6506 Oct, [facility] [address] [facility] [id number] [place] [id number] Oct, [facility] [place] [facility] [address] [facility] [id number] [place] [address]- 7706 Oct, [facility] [address] [facility] [id number], [place] [id number] Aug, [facility] [place] [facility] [address] [facility] [id number], [place] [address]- 2556 Aug, [facility] [place] [address] [facility] [id number], [place] [id number] Jul, [facility] [address] [facility] [id number], [place] [address] 2546 Jul, [facility] [place] [id number], [place] [id number] Jun, [facility] [place] [facility] [address] [facility] [id number], [place] [address]- 2055 Jun, [facility] [address] [facility] [id number], [place] [address]- 9744 Jun, [facility] [place] [address] [place] [address] [id number], [place] [id number] Jun, [facility] [place] [address] [place] [address] [id number] May, [facility] [address], [place] [address]- 5860 May, [facility] [address] [facility] [id number], [place] [address]- 3835 May, [facility] [place] [id number], [place] [id number] May, [facility] [place] [facility] [address] [facility] [id number], [place] [address]- 7248 May, [facility] [address] [facility] [id number], [place] [id number] May, [facility] [place] [facility] [address] [facility] [id number], [place] [address]- 5088 May, [facility] [place] [address] [facility] [id number], [place] [id number] May, [facility] [place] [facility] [address] [facility] [id number], [place] [address]- 3922 Apr, [facility] [place] [facility] [address] [place] [id number], [place] [address]- 8389 Apr, [facility] [address] [id number] [place] [id number] Apr, [facility] [address] [facility] [id number], [place] [address]- 2546 Apr, [facility] [address] [facility] [id number], [place] [address]- 0436 Mar, [facility] [address] [id number] [place] [id number] Mar, [facility] [address] [id number] [place] [id number] Feb, [facility] [address] [id number] [place] [id number] Feb, [facility] [address] [id number] [place] [id number] Feb, [facility] [address] [id number] [place] [id number] Jan, [facility] [address] [facility] [id number], [place] [address]- 2546 Jan, [facility] [address] [id number] [place] [id number] Jan, [facility] [address] [id number] [place] [id number] December, [facility] [address] [facility] [id number][place] [address]- 2546 December, [facility] [address] [id number], [place] [id number] December, [facility] [address] [id number] [place] [id number] December, [facility] [address] [id number] [place] [id number] Nov, [facility] [address] [id number] [place] [id number] Nov, [facility] [address] [facility] [id number], [place] [address]- 0087 Nov, [facility] [address] [id number] [place] 016985601 08 Nov, 2012 [facility] [address] [id number] [place] [id number] Oct, [facility] [address] [id number] [place] [id number] Oct, [facility] [address] [id number] [place] 781180211 Oct, [facility] [address] [id number] [place] [id number] Oct, [facility] [address] [id number] [place] [id number] Sep, [facility] [address] [id number] [place] [id number] Sep, [facility] [address] [facility] [id number], [place] [address]- 4056 Aug, [facility] [address] [place] [id number] [place] [address] 623[address]- 1848 Aug, [facility] [address] [id number] [place] [id number] Aug, [facility] [address] [id number] [place] [id number] Aug, [facility] [address] [id number] [place] [id number] Jul, [facility] [address] [id number] [place] [id number] Jul, [facility] [address] [facility] [id number], [place] [address] Jul, [facility] [address] [facility] [id number], [place] [address] Jul, [facility] [address] [id number] [place] [id number] Jul, [facility] [address] [facility] [id number], [place] [address] Jul, [facility] [address] [id number][place] [id number] Jul, [facility] [address] [facility] [id number], [place] [address] Jul, [facility] [address] [id number], [place] [address] Jul, [facility] [address] [id number][place] [id number] Jul, [facility] [address] [id number] [place] [id number] Jul, [facility] [address] [facility] [id number], [place] [address] Jul, [facility] [address] [facility] [id number] [place] [id number] Jun, [facility] [address] [place] [id number], [place] [address] Jun, [facility] [id number], [place] [address] Jun, [facility] [address] [facility] [id number][place] [id number] Jun, [facility] [id number], [place] [address] Jun, [facility] [address] [id number], [place] [address] Jun, [facility] [address] [id number][place] [id number] Jun, [facility] [address] [facility] [id number], [place] [address] Jun, [facility] [address] [facility] [id number][place] [id number] Jun, [facility] [address] [facility] [id number], [place] [address] Jun, [facility] [address] [facility] [id number][place] [id number] May, [facility] [place] [facility] [address] [facility] [id number], [place] [address] Apr, [facility] [address] [facility] [id number] [place] [address] Apr, [facility] [place] [address] [id number] [place] [id number] Apr, [facility] [place] [address] [id number] [place] [id number] Apr, [facility] [place] [address] [id number] [place] [id number] Apr, [facility] [place] [address] [id number] [place] [id number] Apr, [facility] [place] [address] [id number] [place] [id number] Apr, [facility] [place] [address] [id number] [place] [id number] Mar, [facility] [place] [address] [id number] [place] [id number] Mar, [facility] [place] [address] [id number] [place] [id number] Mar, [facility] [place] [address] [id number] [place] [id number] Mar, [facility] [place] [address] [id number] [place] [id number] Mar, [facility] [place] [address] [id number] [place] [id number] Mar, [facility] [place] [address] [id number] [place] [id number] Mar, [facility] [place] [address] [id number] [place] [id number] Feb, [facility] [place] [address] [id number] [place] [id number] Feb, [facility] [place] [address] [id number] [place] [id number] Jan, [facility] [place] [address] [id number] [place] [id number] Jan, [facility] [place] [address] [id number] [place] [id number] Jan, [facility] [place] [address] [id number] [place] [id number] Jan, [facility] [place] [address] [id number] [place] [id number] Jan, [facility] [place] [address] [id number] [place] [id number] Jan, [facility] [place] [address] [id number] [place] [id number] December, [facility] [place] [address] [id number] [place] [id number] Nov, [facility] [place] [address] [id number] [place] [id number] Oct, [facility] [place] [address] [id number] [place] [id number] Oct, [facility] [place] [address] [id number] [place] [id number] Oct, [facility] [address] [id number] [id number] Oct, [facility] [place] [address] [id number] [place] [id number] Oct, [facility] [place] [address] [id number] [place] [id number] Oct, [facility] [place] [address] [id number] [place] [id number] Oct, [facility] [place] [address] [id number] [place] [id number] Oct, [facility] [place] [address] [id number] [place] [id number] Oct, [facility] [place] [address] [id number] [place] [id number] Oct, [facility] [place] [address] [id number] [place] [id number] Sep, [facility] [id number] [id number] Sep, [facility] [place] [address] [id number] [place] [id number] Sep, [facility] [place] [address] [id number] [place] [id number] Aug, [facility] [place] [address] [id number] [place] [id number] Aug, [facility] [place] [address] [id number] [place] [id number] Aug, [facility] [address] [id number], [place] [address] Aug, [facility] [address] [id number] [place] [address] Jul, [facility] [address] [id number] [place] [address] Jul, [facility] [address] [facility] [id number] [place] [address] Jul, [facility] [id number] [address] Jul, [facility] [address] [facility] [id number], [place] [address] Jun, [facility] [address] [id number] [place] [address] Jun, [facility] [place] [address] [facility] [id number], [place] [address] May, [facility] [address] [facility] [id number], [place] [address] May, [facility] [address] [id number], [place] [address] December, [facility] [place] [facility] [address] [id number] [place] [address] December, [facility] [place] [facility] [address] [facility] [id number], [place] [address] Aug, [facility] [address] [id number], [place] [address] Jul, [facility] [place] [facility] [address] [id number] [place] [address] 28 Jul, 2010 [facility] [place] [facility] [address] [id number] [place] [address] 23 Jul, 2010 [facility] [place] [facility] [address] [id number] [place] [address] 16 Jul, 2010 [facility] [place] [facility] [address] [id number] [place] [address] 16 Jul, 2010 [facility] [address] [id number] [place] [address]- [address]69 03 Jul, 2010 [facility] [address] [id number] [place] [address] 30 Jun, 2010 [facility] [address] [id number] [place] 30 Jun, 2010 [facility] [address] [id number] [place] [address] 29 Jun, 2010 [facility] [address] [id number] [place] [address]- [address] Jun, [facility] [address] [id number] [place] [address] Jun, [facility] [address] [id number] [place] [address] 14 May, 2010 [facility] [place] [facility] [address] [id number], [place] [address] December, [facility] [place] [facility] [address] [id number] [place] [address] December, [facility] [place] [facility] [address] [id number], [place] [address] Oct, [facility] [place] [facility] [address] [id number], [place] [address]- [address] 31 Jul, 2009 [facility] [place] [facility] [address] [id number], [place] [address] Jul, [facility] [address] [facility] [id number], [place] [address] Jul, [facility] [address] [id number], [place] [address] Jun, [facility] [address] [facility] [id number], [place] [address] May, [facility] [address] [facility] [id number], [place] [address] Jun, IMMUNIZATIONS No Known Immunizations SOCIAL HISTORY Never Assessed REASON FOR VISIT continues N/V PLAN OF CARE VITAL SIGNS MEDICATIONS Unknown [...]
--- OUTSIDE RECORDS SUMMARY | 2018-07-11 11:22 | XMS REPORT ---
Author Author JOSEP GONG [facility] Address [address] [place] [address] Care Team Providers Care Nursery Helper Name Role Phone JOSEP GONG Unavailable PROBLEMS Type Condition ICD9-CM Code TAL63-UP Code Onset Dates Condition Status SNOMED Code Problem Chronic bronchitis, unspecified chronic bronchitis type J42 Active 93257836 Problem Vitamin D deficiency, unspecified E55.9 Active 88735011 Problem Chronic obstructive pulmonary disease with acute exacerbation J44.1 Active 960501365 Problem Gastric reflux K21.9 Active 143754510 Problem Right knee pain M25.561 Active 45297753 Problem Paroxysmal atrial fibrillation I48.0 Active 110692757 Problem Sprain of right knee, unspecified ligament, initial encounter S83.91XA Active 01896810 Problem Abscess L02.91 Active 104789566 Problem Obesity, unspecified E66.9 Active 70074826152183 Problem Chronic obstructive pulmonary disease, unspecified COPD type J44.9 Active 59904365 Problem Chronic congestive heart failure, unspecified heart failure type I50.9 Active 71826125 Problem Body mass index (BMI) of 40.0-44.9 in adult Z68.41 Active 492072144 Problem Hyperlipidemia, unspecified E78.5 Active 39164693 Problem Chronic renal disease, unspecified stage N18.9 Active 000452668 Problem Type 2 diabetes mellitus with other diabetic kidney complication E11.29 Active 448444264 Problem Essential hypertension I10 Active 90744109 Problem Proteinuria R80.9 Active 57703925 Problem Renal osteodystrophy N25.0 Active 74298916 Problem Chronic kidney disease, stage IV (severe) N18.4 Active 419673506 Problem Essential (primary) hypertension I10 Active 81454086 Problem Venous (peripheral) insufficiency I87.2 Active 45807048 Problem Anemia of renal disease D63.1 Active 601190134 Problem Type 2 diabetes mellitus with diabetic nephropathy E11.21 Active 036142457 ALLERGIES No Information ENCOUNTERS Encounter Location Date Diagnosis [address] [place] [address] [id number] Jan, Body mass index (BMI) 70 or greater, adult Z68.45 and Type 2 diabetes mellitus with other diabetic kidney complication E11.29 [place] [id number] [place] [address] [id number] Nov, Body mass index (BMI) 70 or greater, adult Z68.45 ; Chronic obstructive pulmonary disease, unspecified COPD type J44.9 ; Chronic kidney disease, stage IV (severe) N18.4 and Gastric reflux K21.9 [place] [id number] [place] [address] [id number] Oct, Body mass index (BMI) 70 or greater, adult Z68.45 ; Type 2 diabetes mellitus with other diabetic kidney complication E11.29 ; Chronic obstructive pulmonary disease with acute exacerbation J44.1 and Paroxysmal atrial fibrillation I48.0 [place] [id number] [place] [address] [id number] Oct, [address] [id number] Oct, Type 2 diabetes mellitus with diabetic nephropathy E11.21 ; Chronic renal disease, unspecified stage N18.9 ; Chronic congestive heart failure, unspecified heart failure type I50.9 and Chronic obstructive pulmonary disease with acute exacerbation J44.1 [place] [id number] [place] [address] [id number] Sep, [place] [id number] [place] [address] [id number] Sep, [place] [id number] [place] [address] [id number] Sep, [facility] [address] [id number] [address] Sep, Type 2 diabetes mellitus with diabetic nephropathy E11.21 [place] [id number] [place] [address] [id number] Aug, Influenza J11.1 and Essential (primary) hypertension I10 [facility] [address] [address] Aug, [facility] [address] [place] [address] [id number] Jul, Type 2 diabetes mellitus with diabetic nephropathy E11.21 ; Essential ( primary) hypertension I10 and Chronic obstructive pulmonary disease, unspecified COPD type J44.9 [facility] [address] [place] [address] [id number] Jun, Dental caries K02.[address] [id number] May, Cough R05 ; Chronic obstructive pulmonary disease, unspecified COPD type J44.9 ; Shortness of breath R06.02 ; Obesity, unspecified E66.9 ; Body mass index (BMI) of 40.0-44.9 in adult Z68.41 and Encounter for immunization Z23 [facility] [id number] [place] [address] [id number] May, Dental examination Z01.20 [place] [id number] [place] [address] [id number] May, Essential hypertension I10 [place] [id number] [place] [address] [id number] Apr, Anemia of renal disease D63.1 ; Type 2 diabetes mellitus with other diabetic kidney complication E11.29 ; Vitamin D deficiency, unspecified E55.9 and Chronic renal disease, unspecified stage N18.9 [facility] [id number] [address] 2546 Mar, [place] [id number] [place] [address] [id number] Mar, Type 2 diabetes mellitus with other diabetic kidney complication E11.29 ; Essential hypertension I10 ; Chronic renal disease, unspecified stage N18.9 and Chronic obstructive pulmonary disease with acute exacerbation J44.1 [address] [place] [address] [id number] Feb, [place] [id number] [place] [address] [id number] Feb, Chronic renal disease, unspecified stage N18.9 ; Essential (primary) hypertension I10 and Type 2 diabetes mellitus with other diabetic kidney complication E11.29 [facility] [address] [place] [address] [id number] Feb, Type 2 diabetes mellitus with other diabetic kidney complication E11.29 ; Chronic kidney disease, stage IV (severe) N18.4 ; Renal osteodystrophy N25.0 ; Anemia of renal disease D63.1 and Essential (primary) hypertension I10 [place] [id number] [place] [address] [id number] December, [place] [id number] [place] [address] [id number] December, Chronic obstructive pulmonary disease with acute exacerbation J44.1 ; Essential (primary) hypertension I10 ; Low back pain M54.5 and Right knee pain M25.561 [address] [place] [address] [id number] Nov, Chronic renal disease, unspecified stage N18.9 ; Essential hypertension I10 ; Type 2 diabetes mellitus with other diabetic kidney complication E11.29 and Chronic obstructive pulmonary disease with acute exacerbation J44.1 [address] [place] [address] [id number] Nov, Chronic renal disease, unspecified stage N18.9 ; Hyperlipidemia, unspecified E78.5 and Essential hypertension I10 [address] [place] [address] [id number] Oct, Chronic bronchitis, unspecified chronic bronchitis type J42 and Type 2 diabetes mellitus with diabetic nephropathy E11.21 [place] [id number] [place] [address] [id number] Sep, Chronic bronchitis, unspecified chronic bronchitis type J42 ; Essential ( primary) hypertension I10 and Type 2 diabetes mellitus with other diabetic kidney complication E11.29 [place] [id number] [place] [address] [id number] Sep, Chronic obstructive pulmonary disease with acute exacerbation J44.1 [address] [place] [address] [id number] Aug, Type 2 diabetes mellitus with diabetic nephropathy E11.21 ; Chronic kidney disease, stage IV (severe) N18.4 ; Essential (primary) hypertension I10 and Encounter for immunization Z23 [address] [place] [address] [id number] Aug, Chronic kidney disease, stage IV (severe) N18.4 ; Type 2 diabetes mellitus with diabetic nephropathy E11.21 and Type 2 diabetes mellitus with hyperglycemia E11.65 [address] [place] [address] [id number] May, Anemia of renal disease D63.1 ; Essential (primary) hypertension I10 ; Renal osteodystrophy N25.0 ; Proteinuria R80.9 ; Chronic kidney disease, stage IV (severe) N18.4 and Type 2 diabetes mellitus with other diabetic kidney complication E11.29 [address] [place] [address] [id number] Mar, Type 2 diabetes mellitus with other diabetic kidney complication E11.29 ; Essential hypertension I10 ; Chronic renal disease, unspecified stage N18.9 and TMJ (temporomandibular joint disorder) M26.60 [address] [place] [address] [id number] Jan, Chronic kidney disease, stage IV (severe) N18.4 and Hyperlipidemia, unspecified E78.5 [address] [place] [address] [id number] December, Type 2 diabetes mellitus with other diabetic kidney complication E11.29 ; Abscess L02.91 and Chronic kidney disease, stage IV (severe) N18.4 [address] [place] [address] [id number] December, Abscess L02.91 [address] [place] [address] [id number] December, [address] [place] [address] [id number] Oct, Renal osteodystrophy N25.0 ; Chronic kidney disease, stage IV (severe) N18.4 and Vitamin D deficiency E55.9 [address] [place] [address] [id number] Oct, [place] [id number] [id number] Sep, Type 2 diabetes mellitus with other diabetic kidney complication E11.29 ; Essential hypertension I10 and Chronic airway obstruction, not elsewhere classified J44.9 [address] [place] [address] [id number] Sep, [address] [place] [address] [id number] Aug, [place] [id number] [place] [address] [id number] Jul, [place] [id number] [place] [address] [id number] Jul, [address] [id number] Jul, Chronic kidney disease, stage IV (severe) N18.4 ; Renal osteodystrophy N25.0 and Proteinuria R80.9 [place] [address] [address] Jul, [facility] [id number] [place] [address] [id number] Jun, [facility] [address] [place] [address] [id number] Jun, [address] [place] [address] [id number] Jun, Diabetes with renal manifestations, type II or unspecified type, uncontrolled 250.42 and Right knee pain M25.561 [place] [address] [place] [id number] [place] [address]- [address] May, [place] [id number] [place] [address] [id number] May, Encounter for immunization Z23 ; Abscess L02.91 and Sprain of right knee, unspecified ligament, initial encounter S83.91XA [address] [place] [address] [id number] May, Abscess L02.[address] [facility] [id number] [place] [address] [id number] May, [address] [place] [address] [id number] Apr, Diabetes with renal manifestations, type II or unspecified type, uncontrolled 250.42 and PPV23 (PNEUMOVAX) DX V03.82 [address] [place] [address] [id number] Mar, [place] [id number] [place] [address] [id number] Mar, Proteinuria 791.0 ; Renal osteodystrophy 588.0 ; Chronic kidney disease, Stage IV (severe) 585.4 ; Benign essential hypertension 401.1 and Vitamin D deficiency 268.9 [place] [id number] [place] [address] [id number] Feb, Avulsion fracture of ankle 824.8 [place] [id number] [place] [address] [id number] Feb, [place] [id number] [place] [address] [id number] Feb, [place] [address] [place] [address] [id number] Feb, Diabetes with renal manifestations, type II or unspecified type, uncontrolled 250.42 [place] [id number] [place] [address] [id number] Jan, Diabetes with renal manifestations, type II or unspecified type, uncontrolled 250.42 [address] [place] [address] [id number] December, Diabetes with renal manifestations, type II or unspecified type, uncontrolled 250.42 and Unspecified essential hypertension 401.9 [address] [place] [address] [id number] December, [place] [id number] [place] [address] [id number] December, [place] [id number] [place] [address] [id number] December, Essential hypertension 401.9 [place] [id number] [place] [address] [id number] Nov, Essential hypertension 401.9 [facility] [address] [id number] [place] [id number] Nov, [facility] [address] [id number] [place] [id number] Nov, [facility] [address] [id number] [place] [id number] Nov, [facility] [place] [facility] [address] [facility] [id number] [address]- [address] Nov, [facility] [place] [facility] [address] [facility] [id number] [address]- 25[address] Nov, [facility] [address] [facility] [id number] [place] [id number] Oct, [facility] [place] [facility] [address] [address] Oct, [facility] [id number] [id number] Oct, [facility] [place] [facility] [address] [address]- 14[address] Oct, [facility] [place] [facility] [address] [address]- 37[address] Oct, [facility] [address] [facility] [id number][place] [id number] Oct, [facility] [address] [place] [id number] [id number] Oct, [facility] [place] [facility] [address] [address]- 5[address] Oct, [facility] [place] [facility] [address] [id number] [address]- 2546 Sep, [facility] [address] [facility] [id number][place] [id number] Sep, [facility] [address] [facility] [id number][place] [id number] Sep, [facility] [place] [facility] [address] [address]- 84[address] Sep, [facility] [address] [id number] [place] [id number] Aug, [facility] [place] [facility] [address] [id number] [place] [address]- 57[address] Aug, [facility] [address] [facility] [id number] [place] [id number] Aug, [facility] [place] [facility] [address] [id number] [address]- 0395 Aug, [facility] [address] [facility] [id number] [place] [id number] Aug, [facility] [place] [facility] [address] [facility] [id number] [place] [address]- 8626 Aug, [facility] [place] [facility] [address] [id number] [address]- 1514 Aug, [facility] [address] [id number] [id number] Aug, [facility] [place] [facility] [address] [id number] [address]- 29[address] Jul, [facility] [place] [facility] [address] [id number] [address]- 77[address] Jul, [facility] [address] [facility] [id number][place] [id number] Jul, [facility] [place] [facility] [address] [facility] [id number] [address]- 7151 Jul, [facility] [address] [facility] [id number][place] [id number] Jul, [facility] [place] [facility] [address] [id number] [place] [address]- 7796 Jul, [facility] [address] [facility] [id number][place] [id number] Jul, [facility] [place] [facility] [address] [facility] [id number] [place] [address]- 5016 Jul, [facility] [place] [facility] [address] [id number] [address]- 7666 May, [facility] [address] [id number] [place] [id number] May, [facility] [address] [id number] [place] [id number] May, [facility] [place] [facility] [address] [id number] [address]- 488[address] May, [facility] [address] [id number] [place] [id number] Apr, [facility] [place] [facility] [address] [facility] [id number] [place] [address]- 6774 Apr, [facility] [address] [id number] [place] 005898700 Mar, [facility] [place] [facility] [address] [facility] [id number] [place] 1106 Mar, [facility] [place] [facility] [address] [facility] [id number] [place]- 5454 Mar, [facility] [place] [facility] [address] [facility] [id number] [place] [address]- 7877 Mar, [facility] [address] [id number][place] [id number] Mar, [facility] [address] [facility] [id number][place] [id number] Feb, [facility] [place] [facility] [address] [facility] [id number] [place] 3682 Feb, [facility] [address] [id number], [place] [id number] Jan, [facility] [place] [facility] [address] [facility] [id number] [place] [address]- 5982 Jan, [facility] [place] [facility] [address] [facility] [id number] [place] 8894 Jan, [facility] [address] [id number], [place] [id number] Jan, [facility] [address] [id number] [place] [id number] Jan, [facility] [place] [facility] [address] [id number] [place] [address]- 1492 Jan, [facility] [address] [facility] [id number] [place] [id number] December, [facility] [place] [facility] [address] [facility] [id number] [address]- 9136 December, [facility] [place] [facility] [address] [facility] [id number] [place] [address]- 2382 Nov, [facility] [place] [facility] [address] [facility] [id number] [place] [address]- 3279 Nov, [facility] [address] [facility] [id number] [place] [id number] Nov, [facility] [place] [facility] [address] [facility] [id number] [place] [address]- 7066 Nov, [facility] [address] [facility] [id number], [place] [id number] Oct, [facility] [place] [facility] [address] [facility] [id number] [address]- 4546 Oct, [facility] [address] [facility] [id number], [place] 947853785 Oct, [facility] [place] [facility] [address] [facility] [id number] [place] [address]- 3536 Oct, [facility] [address] [facility] [id number][place] [id number] Oct, [facility] [place] [facility] [address] [facility] [id number] [address]- 0816 Oct, [facility] [address] [facility] [id number] [place] [id number] Oct, [facility] [place] [facility] [address] [facility] [id number] [place] [address]- 2566 Oct, [facility] [address] [facility] [id number][place] [id number] Aug, [facility] [place] [facility] [address] [facility] [id number] [address]- 4021 Aug, [facility] [place] [address] [facility] [id number], [place] [id number] Jul, [facility] [address] [facility] [id number] [place] [address] 2546 Jul, [facility] [place] [id number] [id number] Jun, [facility] [place] [facility] [address] [facility] [id number] [address]- 0148 Jun, [facility] [address] [facility] [id number] [address]- 7106 Jun, [facility] [place] [address] [id number], [place] [id number] Jun, [facility] [place] [address] [place] [address] [id number] May, [facility] [address]005[address] [address]- 9708 May, [facility] [address] [facility] [id number] [address]- 2999 May, [facility] [place] [id number] 165829999 May, [facility] [place] [facility] [address] [facility] [id number] [address]- 5702 May, [facility] [address] [facility] [id number], [place] [id number] May, [facility] [place] [facility] [address] [facility] [id number] [address]- 8740 May, [facility] [place] [address] [facility] [id number] 438999547 May, [facility] [place] [facility] [address] [facility] [id number] [place] [address]- 9710 Apr, [facility] [place] [facility] [address] [id number] [address]- 5387 Apr, [facility] [address] [id number] [place] [id number] Apr, [facility] [address] [facility] [id number] [place] [address]- 2546 Apr, [facility] [address] [facility] [id number] [address]- 2146 Mar, [facility] [address] [id number] [place] [id number] Mar, [facility] [address] [id number] [place] [id number] Feb, [facility] [address] [id number] [place] 950876057 Feb, [facility] [address] [id number] [place] 887007884 Feb, [facility] [address] [id number] [place] [id number] Jan, [facility] [address] [facility] [id number] [address]- 2546 Jan, [facility] [address] [id number] [place] [id number] Jan, [facility] [address] [id number] [place] [id number] December, [facility] [address] [facility] [id number] [address]- 2546 December, [facility] [address] [id number], [place] [id number] December, [facility] [address] [id number] [place] 754887310 December, [facility] [address] [id number] [place] [id number] Nov, [facility] [address] [id number] [place] 725485731 Nov, [facility] [address] [facility] [id number] [place] [address]- 0824 Nov, [facility] [address] [id number] [place] 0[place]203 08 Nov, 2012 [facility] [address] [id number] [place] [id number] Oct, [facility] [address] [id number] [place] [id number] Oct, [facility] [address] [id number] [place] 669753033 Oct, [facility] [address] [id number] [place] [id number] Oct, [facility] [address] [id number] [place] [id number] Sep, [facility] [address] [id number] [place] 080834810 Sep, [facility] [address] [facility] [id number] [address]- 9056 Aug, [facility] [id number] [place] [address]- 1237 Aug, [facility] [address] [id number] [place] [id number] Aug, [facility] [address] [id number] [place] [id number] Aug, [facility] [address] [id number] [place] [id number] Jul, [facility] [address] [id number] [place] [id number] Jul, [facility] [address] [facility] [id number] [address]- 0867 Jul, [facility] [address] [facility] [id number] [place] [address] Jul, [facility] [address] [id number] [place] [id number] Jul, [facility] [address] [facility] [id number] [place] [address] Jul, [facility] [address] [id number] [id number] Jul, [facility] [address] [facility] [id number] [place] [address] Jul, [facility] [address] [id number] [address] Jul, [facility] [address] [id number] [id number] Jul, [facility] [address] [id number] [place] [id number] Jul, [facility] [address] [facility] [id number] [place] [address] Jul, [facility] [address] [facility] [id number] [place] [id number] Jun, [facility] [address] [id number] [address] Jun, [facility] [id number] [address] Jun, [facility] [address] [facility] [id number][place] [id number] Jun, [facility] [id number] [address] Jun, [facility] [address] [id number] [address] Jun, [facility] [address] [id number] [id number] Jun, [facility] [address] [facility] [id number] [place] [address] Jun, [facility] [address] [facility] [id number][place] [id number] Jun, [facility] [address] [facility] [facility] [id number] [address] Jun, [facility] [place] [address] [facility] [id number] [id number] May, [facility] [place] [facility] [address] [facility] [id number] [place] [address] Apr, [facility] [address] [facility] [id number] [place] [address] Apr, [facility] [place] [address] [id number] [place] [id number] Apr, [facility] [place] [address] [id number] [place] [id number] Apr, [facility] [place] [address] [id number] [place] [id number] Apr, [facility] [place] [address] [id number] [place] [id number] Apr, [facility] [place] [address] [id number] [id number] Apr, [facility] [place] [address] [id number] [place] [id number] Mar, [facility] [place] [address] [id number] [place] [id number] Mar, [facility] [place] [address] [id number] [place] [id number] Mar, [facility] [place] [address] [id number] [place] [id number] Mar, [facility] [place] [address] [id number] [place] [id number] Mar, [facility] [place] [address] [id number] [place] [id number] Mar, [facility] [place] [address] [id number] [place] [id number] Mar, [facility] [place] [address] [id number] [place] [id number] Feb, [facility] [place] [address] [id number] [place] [id number] Feb, [facility] [place] [address] [id number] [place] [id number] Jan, [facility] [place] [address] [id number] [place] [id number] Jan, [facility] [place] [address] [id number] [place] [id number] Jan, [facility] [place] [address] [id number] [place] [id number] Jan, [facility] [place] [address] [id number] [place] [id number] Jan, [facility] [place] [address] [id number] [place] [id number] Jan, [facility] [place] [address] [id number] [place] [id number] December, [facility] [place] [address] [id number] [place] [id number] Nov, [facility] [place] [address] [id number] [place] [id number] Oct, [facility] [place] [address] [id number] [place] [id number] Oct, [facility] [place] [address] [id number] [place] [id number] Oct, [facility] [address] [id number] [id number] [address] Oct, [facility] [place] [address] [id number] [place] [id number] Oct, [facility] [place] [address] [id number] [place] [id number] Oct, [facility] [place] [address] [id number] [place] [id number] Oct, [facility] [place] [address] [id number] [place] [id number] Oct, [facility] [place] [address] [id number] [place] [id number] Oct, [facility] [place] [address] [id number] [place] [id number] Oct, [facility] [place] [address] [id number] [place] [id number] Sep, [facility] [id number] [address] Sep, [facility] [place] [address] [id number] [place] [id number] Sep, [facility] [place] [address] [id number] [place] [id number] Aug, [facility] [place] [address] [id number] [place] [id number] Aug, [facility] [place] [address] [id number] [place] [id number] Aug, [facility] [address] [id number] [place] [address] Aug, [facility] [address] [id number] [place] [address] Jul, [facility] [address] [id number] [place] [address] Jul, [facility] [address] [facility] [id number] [place] [address] Jul, [facility] [id number] [place] [address] Jul, [facility] [address] [facility] [id number] [place] [address] Jun, [facility] [address] [id number] [place] [address] Jun, [facility] [address] [facility] [id number] [place] [address] May, [facility] [address] [facility] [id number] [place] [address] May, [facility] [address] [id number] [place] [address] December, [facility] [place] [facility] [address] [id number] [place] [address] December, [facility] [place] [facility] [address] [facility] [id number] [place] [address] Aug, [facility] [address] [id number] [place] [address] Jul, [facility] [place] [facility] [address] [id number] [place] [address] 28 Jul, 2010 [facility] [place] [facility] [address] [id number] [place] [address] 23 Jul, 2010 [facility] [place] [facility] [address] [id number] [place] [address]- [address] 16 Jul, 2010 [facility] [place] [facility] [address] [id number] [place] [address]- [address] 16 Jul, 2010 [facility] [address] [id number] [place] [address]- [address] 03 Jul, 2010 [facility] [address] [id number] [place] [address]- [address] 30 Jun, 2010 [facility] [address] [id number] [place]- [address] 30 Jun, 2010 [facility] [address] [id number] [place] [address] 29 Jun, 2010 [facility] [address] [id number] [place] [address] Jun, [facility] [address] [id number] [place] [address] Jun, [facility] [address] [id number] [place] [address]- [address] 14 May, 2010 [facility] [place] [facility] [address] [id number] [address]- [address] December, [facility] [place] [facility] [address] [id number] [place] [address] December, [facility] [place] [facility] [address] [id number] [place] [address]- [address] Oct, [facility] [place] [facility] [address] [id number] [place] [address]- [address] 31 Jul, 2009 [facility] [place] [facility] [address] [id number] [place] [address] Jul, [facility] [address] [facility] [id number] [place] [address] Jul, [facility] [address] [facility] [id number] [place] [address] Jun, [facility] [address] [facility] [id number] [place] [address]- [address] May, [facility] [address] [facility] [id number] [place] [address]- [address] Jun, IMMUNIZATIONS No Known Immunizations SOCIAL HISTORY [...]
--- OUTSIDE RECORDS SUMMARY | 2018-07-11 11:23 | XMS REPORT ---
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 Name Role Phone JOSEP GONG Unavailable PROBLEMS Type Condition ICD9-CM Code LTZ46-VP Code Onset Dates Condition Status SNOMED Code Problem Chronic bronchitis, unspecified chronic bronchitis type J42 Active 20155693 Problem Vitamin D deficiency, unspecified E55.9 Active 33736119 Problem Chronic obstructive pulmonary disease with acute exacerbation J44.1 Active 292741679 Problem Gastric reflux K21.9 Active 677779855 Problem Right knee pain M25.561 Active 64753241 Problem Paroxysmal atrial fibrillation I48.0 Active 576103460 Problem Sprain of right knee, unspecified ligament, initial encounter S83.91XA Active 41645866 Problem Abscess L02.91 Active 263936503 Problem Obesity, unspecified E66.9 Active 85745881193182 Problem Chronic obstructive pulmonary disease, unspecified COPD type J44.9 Active 85677583 Problem Chronic congestive heart failure, unspecified heart failure type I50.9 Active 40294736 Problem Body mass index (BMI) of 40.0-44.9 in adult Z68.41 Active 055776827 Problem Hyperlipidemia, unspecified E78.5 Active 37397775 Problem Chronic renal disease, unspecified stage N18.9 Active 816401685 Problem Type 2 diabetes mellitus with other diabetic kidney complication E11.29 Active 587642612 Problem Essential hypertension I10 Active 68197686 Problem Proteinuria R80.9 Active 56253885 Problem Renal osteodystrophy N25.0 Active 36628634 Problem Chronic kidney disease, stage IV (severe) N18.4 Active 861482435 Problem Essential (primary) hypertension I10 Active 83924470 Problem Venous (peripheral) insufficiency I87.2 Active 78433275 Problem Anemia of renal disease D63.1 Active 577926284 Problem Type 2 diabetes mellitus with diabetic nephropathy E11.21 Active 698832983 ALLERGIES No Information ENCOUNTERS Encounter Location Date Diagnosis [id number] [place] [id number] December, [address] [id number] Nov, Body mass index (BMI) 70 or greater, adult Z68.45 ; Chronic obstructive pulmonary disease, unspecified COPD type J44.9 ; Chronic kidney disease, stage IV (severe) N18.4 and Gastric reflux K21.[address] [id number] Oct, Body mass index (BMI) 70 or greater, adult Z68.45 ; Type 2 diabetes mellitus with other diabetic kidney complication E11.29 ; Chronic obstructive pulmonary disease with acute exacerbation J44.1 and Paroxysmal atrial fibrillation I48.[address] [id number] Oct, [address] [id number] Oct, Type 2 diabetes mellitus with diabetic nephropathy E11.21 ; Chronic renal disease, unspecified stage N18.9 ; Chronic congestive heart failure, unspecified heart failure type I50.9 and Chronic obstructive pulmonary disease with acute exacerbation J44.1 [place] [id number] [place] [address] [id number] Sep, [place] [id number] [place] [address] [id number] Sep, [address] [id number] Sep, [facility] [address] [id number] [address]907 Sep, Type 2 diabetes mellitus with diabetic nephropathy E11.[address] [id number] Aug, Influenza J11.1 and Essential (primary) hypertension I10 [facility] [address] [id number] Aug, [address] [id number] Jul, Type 2 diabetes mellitus with diabetic nephropathy E11.21 ; Essential ( primary) hypertension I10 and Chronic obstructive pulmonary disease, unspecified COPD type J44.9 [facility] [address] [facility] [id number] [place] [id number] Jun, Dental caries K02.9 [facility] [address] [place] [address] [id number] May, Cough R05 ; Chronic obstructive pulmonary disease, unspecified COPD type J44.9 ; Shortness of breath R06.02 ; Obesity, unspecified E66.9 ; Body mass index (BMI) of 40.0-44.9 in adult Z68.41 and Encounter for immunization Z23 [facility] [address] [id number] May, Dental examination Z01.[address] [place] [address] [id number] May, Essential hypertension I10 [place] [id number] [place] [address] [id number] Apr, Anemia of renal disease D63.1 ; Type 2 diabetes mellitus with other diabetic kidney complication E11.29 ; Vitamin D deficiency, unspecified E55.9 and Chronic renal disease, unspecified stage N18.9 [facility] [id number] [address] Mar, [address] [place] [address] [id number] Mar, Type 2 diabetes mellitus with other diabetic kidney complication E11.29 ; Essential hypertension I10 ; Chronic renal disease, unspecified stage N18.9 and Chronic obstructive pulmonary disease with acute exacerbation J44.1 [address] [id number] Feb, [place] [id number] [place] [address] [id number] Feb, Chronic renal disease, unspecified stage N18.9 ; Essential (primary) hypertension I10 and Type 2 diabetes mellitus with other diabetic kidney complication E11.29 [place] [id number] [id number] Feb, Type 2 diabetes mellitus with other diabetic kidney complication E11.29 ; Chronic kidney disease, stage IV (severe) N18.4 ; Renal osteodystrophy N25.0 ; Anemia of renal disease D63.1 and Essential (primary) hypertension I10 [address] [place] [address] [id number] December, [place] [id number] [place] [address] [id number] December, Chronic obstructive pulmonary disease with acute exacerbation J44.1 ; Essential (primary) hypertension I10 ; Low back pain M54.5 and Right knee pain M25.561 [place] [id number] [place] [address] [id number] Nov, Chronic renal disease, unspecified stage N18.9 ; Essential hypertension I10 ; Type 2 diabetes mellitus with other diabetic kidney complication E11.29 and Chronic obstructive pulmonary disease with acute exacerbation J44.1 [address] [place] [address] [id number] Nov, Chronic renal disease, unspecified stage N18.9 ; Hyperlipidemia, unspecified E78.5 and Essential hypertension I10 [place] [id number] [place] [address] [id number] Oct, Chronic bronchitis, unspecified chronic bronchitis type J42 and Type 2 diabetes mellitus with diabetic nephropathy E11.[address] [place] [address] [id number] Sep, Chronic bronchitis, unspecified chronic bronchitis type J42 ; Essential ( primary) hypertension I10 and Type 2 diabetes mellitus with other diabetic kidney complication E11.29 [address] [place] [address] [id number] 06 Sep, 2016 Chronic obstructive pulmonary disease with acute exacerbation J44.1 [address] [place] [address] [id number] Aug, Type 2 diabetes mellitus with diabetic nephropathy E11.21 ; Chronic kidney disease, stage IV (severe) N18.4 ; Essential (primary) hypertension I10 and Encounter for immunization Z23 [id number] [id number] Aug, Chronic kidney disease, stage IV (severe) N18.4 ; Type 2 diabetes mellitus with diabetic nephropathy E11.21 and Type 2 diabetes mellitus with hyperglycemia E11.65 [address] [place] [address] [id number] May, Anemia of renal disease D63.1 ; Essential (primary) hypertension I10 ; Renal osteodystrophy N25.0 ; Proteinuria R80.9 ; Chronic kidney disease, stage IV (severe) N18.4 and Type 2 diabetes mellitus with other diabetic kidney complication E11.29 [address] [place] [address] [id number] Mar, Type 2 diabetes mellitus with other diabetic kidney complication E11.29 ; Essential hypertension I10 ; Chronic renal disease, unspecified stage N18.9 and TMJ (temporomandibular joint disorder) M26.60 [place] [id number] [place] [address] [id number] Jan, Chronic kidney disease, stage IV (severe) N18.4 and Hyperlipidemia, unspecified E78.[address] [place] [address] [id number] December, Type 2 diabetes mellitus with other diabetic kidney complication E11.29 ; Abscess L02.91 and Chronic kidney disease, stage IV (severe) N18.[address] [place] [address] [id number] December, Abscess L02.91 [address] [place] [address] [id number] December, [address] [place] [address] [id number] Oct, Renal osteodystrophy N25.0 ; Chronic kidney disease, stage IV (severe) N18.4 and Vitamin D deficiency E55.9 [address] [place] [address] [id number] Oct, [place] [id number] [place] [address] [id number] Sep, Type 2 diabetes mellitus with other diabetic kidney complication E11.29 ; Essential hypertension I10 and Chronic airway obstruction, not elsewhere classified J44.9 [address] [place] [address] [id number] Sep, [place] [id number] [place] [address] [id number] Aug, [address] [place] [address] [id number] Jul, [address] [id number] Jul, [place] [id number] [place] [address] [id number] Jul, Chronic kidney disease, stage IV (severe) N18.4 ; Renal osteodystrophy N25.0 and Proteinuria R80.9 [place] [address] [address] Jul, [facility] [id number] [place] [address] [id number] Jun, [facility] [id number] [place] [address] [id number] Jun, [place] [id number] [place] [address] [id number] Jun, Diabetes with renal manifestations, type II or unspecified type, uncontrolled 250.42 and Right knee pain M25.561 [place] [address] [place] [id number] [place] [address] May, [place] [id number] [place] [address] [id number] May, Abscess L02.91 ; Encounter for immunization Z23 and Sprain of right knee, unspecified ligament, initial encounter S83.91XA [place] [id number] [place] [address] [id number] May, Abscess L02.[address] [facility] [id number] [place] [address] [id number] May, [place] [id number] [place] [address] [id number] Apr, Diabetes with renal manifestations, type II or unspecified type, uncontrolled 250.42 and PPV23 (PNEUMOVAX) DX V03.82 [place] [id number] [place] [address] [id number] Mar, [place] [id number] [place] [address] [id number] Mar, Proteinuria 791.0 ; Renal osteodystrophy 588.0 ; Chronic kidney disease, Stage IV (severe) 585.4 ; Benign essential hypertension 401.1 and Vitamin D deficiency 268.9 [place] [id number] [place] [address] [id number] Feb, Avulsion fracture of ankle 824.8 [place] [id number] [place] [address] [id number] Feb, [place] [id number] [place] [address] [id number] Feb, [place] [id number] [place] [address] [id number] Feb, Diabetes with renal manifestations, type II or unspecified type, uncontrolled 250.42 [place] [id number] [place] [address] [id number] Jan, Diabetes with renal manifestations, type II or unspecified type, uncontrolled 250.42 [place] [id number] [place] [address] [id number] December, Diabetes with renal manifestations, type II or unspecified type, uncontrolled 250.42 and Unspecified essential hypertension 401.9 [place] [id number] [place] [address] [id number] December, [place] [id number] [place] [address] [id number] December, [place] [id number] [place] [address] [id number] December, Essential hypertension 401.9 [place] [id number] [place] [address] [id number] Nov, Essential hypertension 401.9 [place] [id number] [place] [address] [id number] Nov, [facility] [place] [address] [id number] [place] [id number] Nov, [facility] [place] [address] [id number] [place] [id number] Nov, [facility] [place] [facility] [address] [facility] [id number] [place] [address]- [address] Nov, [facility] [place] [facility] [address] [facility] [id number] [place] [address]- 2546 Nov, [facility] [place] [address] [id number] [place] [id number] Oct, [facility] [place] [facility] [address] [facility] [id number] [place] [address]- 2546 Oct, [facility] [place] [address] [facility] [id number] [id number] Oct, [facility] [place] [facility] [id number] [address]- 25[address] Oct, [facility] [place] [facility] [address] [facility] [id number] [address]- 2546 Oct, [facility] [place] [address] [id number] [id number] Oct, [facility] [place] [address] [facility] [id number] [id number] Oct, [facility] [place] [facility] [address] [facility] [id number] [address]- 2546 Oct, [facility] [place] [facility] [address] [facility] [id number] [address]- 2546 Sep, [facility] [place] [address] [id number] [place] [id number] Sep, [facility] [address] [id number] [id number] Sep, [facility] [place] [facility] [address] [facility] [id number] [address]- 2546 Sep, [facility] [place] [address] [id number] [id number] Aug, [facility] [address] [facility] [id number] [place] [address]- 0886 Aug, [facility] [place] [address] [facility] [id number] [place] [id number] Aug, [facility] [place] [facility] [address] [facility] [id number] [place] [address]- 0416 Aug, [facility] [address] [facility] [id number] [id number] Aug, [facility] [place] [facility] [address] [facility] [id number] [place] [address]- 0293 Aug, [facility] [place] [facility] [address] [facility] [id number] [place] [address]- 9716 Aug, [facility] [address] [facility] [id number] [place] [id number] Aug, [facility] [place] [facility] [address] [address]- 4[address] Jul, [facility] [place] [facility] [address] [facility] [id number] [place] [address]- 9315 Jul, [facility] [place] [address] [facility] [id number] [place] [id number] Jul, [facility] [place] [facility] [address] [facility] [id number] [address]- 7776 Jul, [facility] [address] [facility] [id number] [id number] Jul, [facility] [place] [facility] [address] [facility] [id number] [address]- 4[address] Jul, [facility] [address] [facility] [id number] [id number] Jul, [facility] [place] [facility] [address] [facility] [id number] [place] [address]- 6656 Jul, [facility] [place] [facility] [address] [facility] [id number] [address]- 8951 May, [facility] [address] [id number] [place] [id number] May, [facility] [address] [id number] [place] [id number] May, [facility] [place] [facility] [address] [facility] [id number] [place] [address]- 7273 May, [facility] [address] [facility] [id number] [place] [id number] Apr, [facility] [place] [facility] [address] [facility] [id number] [address]- 08[address] Apr, [facility] [address] [facility] [id number] [place] [id number] Mar, [facility] [place] [facility] [address] [facility] [id number] [address]- 1553 Mar, [facility] [place] [facility] [address] [facility] [id number] [address]- 8686 Mar, [facility] [place] [facility] [address] [facility] [id number] [place]ANE[place] [address]38[place]- 8431 Mar, [facility] [address] [id number] [place] [id number] Mar, [facility] [address] [facility] [id number] [id number] Feb, [facility] [place] [facility] [address] [facility] [id number] [address]- 7[address] Feb, [facility] [address] [facility] [id number] [place] [id number] Jan, [facility] [place] [facility] [address] [facility] [id number] [address]- 7695 Jan, [facility] [place] [facility] [address] [facility] [id number] [place] [address]- 5327 Jan, [facility] [address] [id number] [place] 3[address]232[address] Jan, [facility] [address] [facility] [id number] [place] [id number] Jan, [facility] [place] [facility] [address] [id number] [place] [address]- 2546 Jan, [facility] [address] [facility] [id number] [id number] December, [facility] [place] [facility] [address] [facility] [id number] [address] 2546 December, [facility] [place] [facility] [address] [facility] [id number] [address]- 2856 Nov, [facility] [place] [facility] [address] [facility] [id number] [address] 2546 Nov, [facility] [address] [facility] [id number] 7931766[address] Nov, [facility] [place] [facility] [address] [facility] [id number] [address] 2546 Nov, [facility] [place] [address] [facility] [id number] 3912[address] Oct, [facility] [place] [facility] [address] [facility] [id number] [address]- 5612 Oct, [facility] [address] [facility] [id number] [id number] Oct, [facility] [place] [facility] [address] [facility] [id number] [address]- 6186 Oct, [facility] [place] [address] [facility] [id number] [place] [id number] Oct, [facility] [place] [facility] [address] [facility] [id number] [address]- 2546 Oct, [facility] [address] [id number] [place] 732673507 Oct, [facility] [place] [facility] [address] [facility] [id number] [address]- 2546 Oct, [facility] [address] [id number] 955848030 Aug, [facility] [place] [facility] [address] [facility] [id number] [address]- 1286 Aug, [facility] [address] [facility] [id number] [place] 645805110 Jul, [facility] [place] [facility] [address] [facility] [id number] [address]- 2546 Jul, [facility] [address] [facility] [id number] [place] [id number] Jun, [facility] [place] [facility] [address] [address]- 2546 Jun, [facility] [place] [facility] [address] [facility] [id number] [place] [address]- 2546 Jun, [facility] [place] [address] [facility] [id number] 7[address]34 Jun, [facility] [place] [address] [facility] [id number] [id number] May, [facility] [address] [address]- 2546 May, [facility] [place] [facility] [address] [address]- 2546 May, [facility] [place] [address] [facility] [id number] [place] 626145761 May, [facility] [place] [facility] [address] [address]- 2546 May, [facility] [place] [id number] [id number] May, [facility] [place] [facility] [address] [facility] [id number] [address]- 2546 May, [facility] [place] [address] [facility] [id number] [id number] May, [facility] [place] [facility] [address] [address]- 2546 Apr, [facility] [place] [facility] [address] [place] [id number] [address]- 2546 Apr, [facility] [id number] [id number] Apr, [facility] [address] [facility] [id number] [address]- 6984 Apr, [facility] [address] [facility] [id number] [address]- 7374 Mar, [facility] [address] [id number] [place] [id number] Mar, [facility] [address] [id number] [place] [id number] Feb, [facility] [address] [id number] [place] 1530480[address] Feb, [facility] [address] [id number] [place] [id number] Feb, [facility] [address] [id number] [place] 910378856 Jan, [facility] [address] [facility] [id number] [address]- 1744 Jan, [facility] [address] [id number] [place] [id number] Jan, [facility] [address] [id number] [place] 860260085 December, [facility] [place] [facility] [address] [facility] [id number] [address]- 0368 December, [facility] [address] [id number] [place] [id number] December, [facility] [address] [id number] [place] [id number] December, [facility] [address] [id number] [place] [id number] Nov, [facility] [address] [id number] [place] 201538173 Nov, [facility] [place] [facility] [address] [facility] [id number] [address]- 9350 Nov, [facility] [address] [id number] [place] [id number] Nov, [facility] [address] [id number] [place] [id number] Oct, [facility] [place] [address] [id number] [place] [id number] Oct, [facility] [place] [address] [id number] [place] [id number] Oct, [facility] [address] [id number] [place] 644455722 Oct, [facility] [address] [id number] [place] [id number] Sep, [facility] [address] [id number] [place] [id number] Sep, [facility] [address] [facility] [id number] [place] [address]- 2278 Aug, [facility] [address] [facility] [id number] [address]- 3592 Aug, [facility] [address] [id number] [place] [id number] Aug, [facility] [address] [id number] [place] [id number] Aug, [facility] [address] [id number] [place] [id number] Jul, [facility] [address] [id number] [place] [id number] Jul, [facility] [address] [place] [address] Jul, [facility] [place] [facility] [address] [facility] [id number] [address] Jul, [facility] [address] [id number] [place] [id number] Jul, [facility] [address] [facility] [id number] [place]ANE[place] [address] Jul, [facility] [address] [id number] [place] [id number] Jul, [facility] [id number] [place] [id number] Jul, [facility] [place] [facility] [address] [facility] [id number] [place] [address] Jul, [facility] [address] [facility] [id number] [id number] Jul, [facility] [address] [facility] [id number] [id number] Jul, [facility] [place] [facility] [id number] [address] Jul, [facility] [address] [facility] [id number] [id number] Jun, [facility] [place] [facility] [address] [address] Jun, [facility] [place] [facility] [id number] [place] [address] Jun, [facility] [id number] [place] [id number] Jun, [facility] [place] [facility] [id number] [place] [address] Jun, [facility] [place] [facility] [address] [address] Jun, [facility] [id number] [id number] Jun, [facility] [place] [facility] [id number] [address] Jun, [facility] [address] [facility] [id number] [id number] Jun, [facility] [place] [facility] [address] [facility] [id number] [place] [address] Jun, [facility] [address] [facility] [id number] [id number] May, [facility] [place] [facility] [address] [address] Apr, [facility] [place] [facility] [id number] [address] Apr, [facility] [address] [id number] [place] [id number] Apr, [facility] [place] [address] [id number] [place] [id number] Apr, [facility] [place] [address] [id number] [place] [id number] Apr, [facility] [place] [address] [id number] [place] [id number] Apr, [facility] [place] [address] [id number] [place] [id number] Apr, [facility] [place] [address] [id number] [place] [id number] Mar, [facility] [place] [address] [id number] [place] [id number] Mar, [facility] [place] [address] [id number] [place] [id number] Mar, [facility] [place] [address] [id number] [place] [id number] Mar, [facility] [place] [address] [id number] [place] [id number] Mar, [facility] [place] [address] [id number] [place] [id number] Mar, [facility] [place] [address] [id number] [place] [id number] Mar, [facility] [place] [address] [id number] [place] [id number] Feb, [facility] [place] [address] [id number] [place] [id number] Feb, [facility] [place] [address] [id number] [place] [id number] Jan, [facility] [place] [address] [id number] [place] [id number] Jan, [facility] [place] [address] [id number] [place] [id number] Jan, [facility] [place] [address] [id number] [place] [id number] Jan, [facility] [place] [address] [id number] [place] [id number] Jan, [facility] [place] [address] [id number] [place] [id number] Jan, [facility] [place] [address] [id number] [place] [id number] December, [facility] [place] [address] [id number] [place] [id number] Nov, [facility] [place] [address] [id number] [place] [id number] Oct, [facility] [place] [address] [id number] [place] [id number] Oct, [facility] [place] [address] [id number] [place] [id number] Oct, [facility] [id number] [place] [id number] Oct, [facility] [place] [address] [id number] [place] [id number] Oct, [facility] [place] [address] [id number] [place] [id number] Oct, [facility] [place] [address] [id number] [place] [id number] Oct, [facility] [place] [address] [id number] [place] [id number] Oct, [facility] [place] [address] [id number] [place] [id number] Oct, [facility] [place] [address] [id number] [place] [id number] Oct, [facility] [place] [address] [id number] [place] [id number] Sep, [facility] [id number] [id number] Sep, [facility] [place] [address] [id number] [place] [id number] Sep, [facility] [place] [address] [id number] [place] [id number] Aug, [facility] [place] [address] [id number] [place] [id number] Aug, [facility] [place] [address] [id number] [place] [id number] Aug, [facility] [address] [id number] [place] [address] Aug, [facility] [address] [id number] [place] [address] Jul, [facility] [place] [facility] [address] [id number] [place] [address] Jul, [facility] [place] [facility] [address] [id number] [place] [address] Jul, [facility] [place] [facility] [address] [facility] [id number] [place] [address] Jul, [facility] [place] [facility] [address] [facility] [id number] [place] [address] Jun, [facility] [place] [facility] [address] [id number] [place] [address] Jun, [facility] [place] [facility] [address] [id number] [place] [address] May, [facility] [place] [facility] [address] [facility] [id number] [place] [address] May, [facility] [place] [facility] [address] [id number] [place] [address] December, [facility] [place] [facility] [address] [id number] [place] [address] December, [facility] [place] [facility] [address] [id number] [place] [address] Aug, [facility] [place] [facility] [address] [id number] [place] [address]- [address] Jul, [facility] [place] [facility] [address] [id number] [place] [address] Jul, [facility] [address] [id number] [place] [address] 23 Jul, 2010 [facility] [place] [facility] [address] [id number] [place] [address] 16 Jul, 2010 [facility] [place] [facility] [address] [id number] [place] [address] 16 Jul, 2010 [facility] [place] [facility] [address] [id number] [place] [address] 03 Jul, 2010 [facility] [address] [id number] [place] [address] 30 Jun, 2010 [facility] [place] [facility] [address] [id number] [place] [address]- [address] 30 Jun, 2010 [facility] [place] [facility] [address] [id number] [place] [address]- [address] 29 Jun, 2010 [facility] [place] [facility] [address] [id number] [place] [address] Jun, [facility] [place] [facility] [address] [id number] [place] [address]- [address] Jun, [facility] [place] [facility] [id number] [address] 14 May, 2010 [facility] [place] [facility] [id number] [place] [address] December, [facility] [place] [facility] [address] [id number] [address] 14 Dec, 2009 [facility] [place] [facility] [address] [id number] [place] [address]- [address] Oct, [facility] [place] [facility] [id number] [place] [address] 31 Jul, 2009 [facility] [place] [facility] [address] [id number] [place] [address] 24 Jul, 2009 [facility] [place] [facility] [address] [facility] [id number] [place] [address] Jul, [facility] [address] [facility] [id number] [place] [address] Jun, [facility] [address] [facility] [id number] [address] May, [facility] [address] [facility] [id number] [place] [address] Jun, IMMUNIZATIONS No Known Immunizations SOCIAL HISTORY Never Assessed REASON FOR VISIT med refill PLAN OF CARE VITAL SIGNS MEDICATIONS Medication Instructions Dosage Frequency Start Date End Date Duration Status Amlodipine Besylate 10 mg Orally Once a day 1 tablet 24h 0 days Active RESULTS No Results PROCEDURES [...]
--- OUTSIDE RECORDS SUMMARY | 2018-07-11 11:24 | XMS REPORT ---
Author Author JOSEP GONG [facility] Address [address] [place] [address] Care Team Providers Care Board Member Name Role Phone JOSEP GONG Unavailable PROBLEMS Type Condition ICD9-CM Code OMT23-HS Code Onset Dates Condition Status SNOMED Code Problem Chronic bronchitis, unspecified chronic bronchitis type J42 Active 89206020 Problem Vitamin D deficiency, unspecified E55.9 Active 72909056 Problem Chronic obstructive pulmonary disease with acute exacerbation J44.1 Active 920063893 Problem Gastric reflux K21.9 Active 075712887 Problem Right knee pain M25.561 Active 26252343 Problem Paroxysmal atrial fibrillation I48.0 Active 712732705 Problem Sprain of right knee, unspecified ligament, initial encounter S83.91XA Active 98906710 Problem Abscess L02.91 Active 550864314 Problem Obesity, unspecified E66.9 Active 92543877183615 Problem Chronic obstructive pulmonary disease, unspecified COPD type J44.9 Active 48406190 Problem Chronic congestive heart failure, unspecified heart failure type I50.9 Active 20982369 Problem Body mass index (BMI) of 40.0-44.9 in adult Z68.41 Active 410490310 Problem Hyperlipidemia, unspecified E78.5 Active 30935356 Problem Chronic renal disease, unspecified stage N18.9 Active 360189753 Problem Type 2 diabetes mellitus with other diabetic kidney complication E11.29 Active 264063292 Problem Essential hypertension I10 Active 10602082 Problem Proteinuria R80.9 Active 25013041 Problem Renal osteodystrophy N25.0 Active 68196169 Problem Chronic kidney disease, stage IV (severe) N18.4 Active 383375306 Problem Essential (primary) hypertension I10 Active 21436205 Problem Venous (peripheral) insufficiency I87.2 Active 55093874 Problem Anemia of renal disease D63.1 Active 406590606 Problem Type 2 diabetes mellitus with diabetic nephropathy E11.21 Active 662720664 ALLERGIES No Information ENCOUNTERS Encounter Location Date Diagnosis [place] [id number] [place] [address] [id number] Feb, [place] [id number] [place] [address] [id number] Jan, Body mass index (BMI) 70 or greater, adult Z68.45 and Type 2 diabetes mellitus with other diabetic kidney complication E11.29 [place] [id number] [place] [address] [id number] Nov, Body mass index (BMI) 70 or greater, adult Z68.45 ; Chronic obstructive pulmonary disease, unspecified COPD type J44.9 ; Chronic kidney disease, stage IV (severe) N18.4 and Gastric reflux K21.9 [place] [id number] [place] [address] [id number] Oct, Body mass index (BMI) 70 or greater, adult Z68.45 ; Type 2 diabetes mellitus with other diabetic kidney complication E11.29 ; Chronic obstructive pulmonary disease with acute exacerbation J44.1 and Paroxysmal atrial fibrillation I48.0 [place] [id number] [place] [address] [id number] Oct, [place] [address] [place] [address] [id number] Oct, Type 2 diabetes mellitus with diabetic nephropathy E11.21 ; Chronic renal disease, unspecified stage N18.9 ; Chronic congestive heart failure, unspecified heart failure type I50.9 and Chronic obstructive pulmonary disease with acute exacerbation J44.1 [address] [place] [address] [id number] Sep, [address] [place] [address] [id number] Sep, [address] [place] [address] [id number] Sep, [facility] [address], [place] [address] Sep, Type 2 diabetes mellitus with diabetic nephropathy E11.21 [address] [place] [address] [id number] Aug, Influenza J11.1 and Essential (primary) hypertension I10 [facility] [id number] [place] [address]- [address]48 Aug, [address] [id number] [place] [address] [id number] Jul, Type 2 diabetes mellitus with diabetic nephropathy E11.21 ; Essential ( primary) hypertension I10 and Chronic obstructive pulmonary disease, unspecified COPD type J44.9 [facility] [id number] [place] [address] [id number] Jun, Dental caries K02.9 [address] [id number] [place] [address] [id number] May, Cough R05 ; Chronic obstructive pulmonary disease, unspecified COPD type J44.9 ; Shortness of breath R06.02 ; Obesity, unspecified E66.9 ; Body mass index (BMI) of 40.0-44.9 in adult Z68.41 and Encounter for immunization Z23 [facility] [id number] [place] [address] [id number] May, Dental examination Z01.20 [address] [id number] [place] [address] [id number] May, Essential hypertension I10 [place] [id number] [place] [address] [id number] Apr, Anemia of renal disease D63.1 ; Type 2 diabetes mellitus with other diabetic kidney complication E11.29 ; Vitamin D deficiency, unspecified E55.9 and Chronic renal disease, unspecified stage N18.9 [facility] [address] [place] [address]- 1641 Mar, [place] [id number] [place] [address] [id number] Mar, Type 2 diabetes mellitus with other diabetic kidney complication E11.29 ; Essential hypertension I10 ; Chronic renal disease, unspecified stage N18.9 and Chronic obstructive pulmonary disease with acute exacerbation J44.1 [address] [id number] [place] [address] [id number] Feb, [address] [place] [id number] Feb, Chronic renal disease, unspecified stage N18.9 ; Essential (primary) hypertension I10 and Type 2 diabetes mellitus with other diabetic kidney complication E11.29 [address] [place] [address] [id number] Feb, Type 2 diabetes mellitus with other diabetic kidney complication E11.29 ; Chronic kidney disease, stage IV (severe) N18.4 ; Renal osteodystrophy N25.0 ; Anemia of renal disease D63.1 and Essential (primary) hypertension I10 [address] [place] [address] [id number] December, [place] [address] [place] [address] [id number] December, Chronic obstructive pulmonary disease with acute exacerbation J44.1 ; Essential (primary) hypertension I10 ; Low back pain M54.5 and Right knee pain M25.561 [place] [address] [place] [address] [id number] Nov, Chronic renal disease, unspecified stage N18.9 ; Essential hypertension I10 ; Type 2 diabetes mellitus with other diabetic kidney complication E11.29 and Chronic obstructive pulmonary disease with acute exacerbation J44.1 [place] [id number] [place] [address] [id number] Nov, Chronic renal disease, unspecified stage N18.9 ; Hyperlipidemia, unspecified E78.5 and Essential hypertension I10 [address] [place] [address] [id number] Oct, Chronic bronchitis, unspecified chronic bronchitis type J42 and Type 2 diabetes mellitus with diabetic nephropathy E11.21 [address] [place] [address] [id number] Sep, Chronic bronchitis, unspecified chronic bronchitis type J42 ; Essential ( primary) hypertension I10 and Type 2 diabetes mellitus with other diabetic kidney complication E11.29 [address] [place] [address] [id number] Sep, Chronic obstructive pulmonary disease with acute exacerbation J44.1 [place] [id number] [place] [address] [id number] Aug, Type 2 diabetes mellitus with diabetic nephropathy E11.21 ; Chronic kidney disease, stage IV (severe) N18.4 ; Essential (primary) hypertension I10 and Encounter for immunization Z23 [address] [id number] Aug, Chronic kidney disease, stage IV (severe) N18.4 ; Type 2 diabetes mellitus with diabetic nephropathy E11.21 and Type 2 diabetes mellitus with hyperglycemia E11.65 [address] [place] [address] [id number] May, Anemia of renal disease D63.1 ; Essential (primary) hypertension I10 ; Renal osteodystrophy N25.0 ; Proteinuria R80.9 ; Chronic kidney disease, stage IV (severe) N18.4 and Type 2 diabetes mellitus with other diabetic kidney complication E11.29 [address] [id number] Mar, Type 2 diabetes mellitus with other diabetic kidney complication E11.29 ; Essential hypertension I10 ; Chronic renal disease, unspecified stage N18.9 and TMJ (temporomandibular joint disorder) M26.60 [address] [id number] Jan, Chronic kidney disease, stage IV (severe) N18.4 and Hyperlipidemia, unspecified E78.5 [address] [id number] December, Type 2 diabetes mellitus with other diabetic kidney complication E11.29 ; Abscess L02.91 and Chronic kidney disease, stage IV (severe) N18.4 [place] [id number] [id number] December, Abscess L02.91 [address] [place] [address] [id number] December, [address] [place] [address] [id number] Oct, Renal osteodystrophy N25.0 ; Chronic kidney disease, stage IV (severe) N18.4 and Vitamin D deficiency E55.9 [place] [address] [place] [address] [id number] Oct, [place] [address] [place] [address] [id number] Sep, Type 2 diabetes mellitus with other diabetic kidney complication E11.29 ; Essential hypertension I10 and Chronic airway obstruction, not elsewhere classified J44.9 [place] [id number] [place] [address] [id number] Sep, [place] [address] [place] [address] [id number] Aug, [address] [place] [address] [id number] Jul, [address] [id number] Jul, [place] [address] [place] [address] [id number] Jul, Chronic kidney disease, stage IV (severe) N18.4 ; Renal osteodystrophy N25.0 and Proteinuria R80.9 [facility] [address] [address] Jul, [facility] [id number] [place] [address] [id number] Jun, [facility] [id number] [place] [address] [id number] Jun, [place] [address] [place] [address] [id number] Jun, Diabetes with renal manifestations, type II or unspecified type, uncontrolled 250.42 and Right knee pain M25.561 [facility] [address] [id number] May, [address] [id number] May, Abscess L02.91 ; Encounter for immunization Z23 and Sprain of right knee, unspecified ligament, initial encounter S83.91XA [place] [address] [place] [address] [id number] May, Abscess L02.91 [facility] [address] [id number] [id number] May, [address] [place] [address] [id number] Apr, Diabetes with renal manifestations, type II or unspecified type, uncontrolled 250.42 and PPV23 (PNEUMOVAX) DX V03.82 [address] [place] [address] [id number] Mar, [place] [address] [place] [address] [id number] Mar, Proteinuria 791.0 ; Renal osteodystrophy 588.0 ; Chronic kidney disease, Stage IV (severe) 585.4 ; Benign essential hypertension 401.1 and Vitamin D deficiency 268.9 [address] [place] [address] [id number] Feb, Avulsion fracture of ankle 824.8 [address] [place] [address] [id number] Feb, [address] [place] [address] [id number] Feb, [place] [address] [place] [address] [id number] Feb, Diabetes with renal manifestations, type II or unspecified type, uncontrolled 250.42 [address] [id number] Jan, Diabetes with renal manifestations, type II or unspecified type, uncontrolled 250.42 [address] [id number] December, Diabetes with renal manifestations, type II or unspecified type, uncontrolled 250.42 and Unspecified essential hypertension 401.9 [address] [place] [address] [id number] December, [address] [place] [address] [id number] December, [address] [id number] December, Essential hypertension 401.9 [facility] [address] [facility] [id number][place] [id number] Nov, Essential hypertension 401.9 [facility] [address] [facility] [id number][place] [id number] Nov, [facility] [address] [facility] [id number], [place] [id number] Nov, [facility] [address] [facility] [id number], [place] [id number] Nov, [facility] [place] [facility] [address] [place] [address]- 25[address] Nov, [facility] [place] [facility] [address], [place] [address]- 25[address] Nov, [facility] [id number], [place] [id number] Oct, [facility] [place] [facility] [address] [place] [address]- [address] Oct, [facility] [id number], [place] [id number] Oct, [facility] [address], [place] [address]- 9[address] Oct, [facility] [place] [address], [place] [address]- 2546 Oct, [facility] [address] [id number] [id number] Oct, [facility] [id number], [place] [id number] Oct, [facility] [place] [address], [place] [address]- 1726 Oct, [facility] [place] [facility] [address], [place] [address]- 2546 Sep, [facility] [address] [id number], [place] 685351353 Sep, [facility] [id number], [place] [id number] Sep, [facility] [address] [facility] [id number], [place] [address]- 0736 Sep, [facility] [address] [id number], [place] [id number] Aug, [facility] [address] [facility] [id number], [place] [address]- 0610 Aug, [facility] [address] [facility] [id number], [place] [id number] Aug, [facility] [address] [id number], [place] [address]- 0[address] Aug, [facility] [address] [facility] [id number], [place] [id number] Aug, [facility] [address] [facility] [id number], [place] [address]- 9667 Aug, [facility] [place] [facility] [address], [place] [address]- [address] Aug, [facility] [address] [facility] [id number], [place] [id number] Aug, [facility] [place] [facility] [address] [facility] [id number], [place] [address]- 5398 Jul, [facility] [place] [facility] [address] [facility] [id number], [place] [address]- 5997 Jul, [facility] [address] [facility] [id number], [place] [id number] Jul, [facility] [place] [facility] [address] [facility] [id number], [place] [address]- 3051 Jul, [facility] [address] [facility] [id number], [place] 988742283 Jul, [facility] [facility] [address] [facility] [id number], [place] [address]- 3[address] Jul, [facility] [address] [facility] [id number] [place] [id number] Jul, [facility] [place] [facility] [address] [facility] [id number], [place] [address]- 2546 Jul, [facility] [place] [facility] [address] [facility] [id number] [place] [address]- 7246 May, [facility] [address] [facility] [id number] [place] [id number] May, [facility] [address] [facility] [id number] [place] [id number] May, [facility] [place] [facility] [address] [facility] [id number], [place] [address]- 6746 May, [facility] [address] [facility] [id number] [place] [id number] Apr, [facility] [place] [facility] [address] [facility] [id number], [place] [address]- 3396 Apr, [facility] [address] [id number] [place] 055226784 Mar, [facility] [place] [facility] [address], [place] [address]- 6006 Mar, [facility] [place] [facility] [address] [facility] [id number], [place] [address]- 2970 Mar, [facility] [place] [facility] [address], [place] [address]- 3876 Mar, [facility] [address] [facility] [id number], [place] 757624228 Mar, [facility] [address] [facility] [id number], [place] [id number] Feb, [facility] [place] [facility] [address] [facility] [id number], [place] [address]- 7006 Feb, [facility] [address] [facility] [id number], [place] [id number] Jan, [facility] [facility] [address] [facility] [id number], [place] [address]- 6316 Jan, [facility] [place] [facility] [address] [facility] [id number], [place] [address]- 9700 Jan, [facility] [address] [id number] [place] [id number] Jan, [facility] [address] [id number] [place] [id number] Jan, [facility] [place] [facility] [address] [facility] [id number] [place] [address]- 8606 Jan, [facility] [address] [id number] [place] [id number] December, [facility] [place] [facility] [address] [facility] [id number] [place] [address]- 1669 December, [facility] [place] [facility] [address] [facility] [id number] [place] [address]- 0343 Nov, [facility] [place] [facility] [address] [facility] [id number] [place] [address]- 8968 Nov, [facility] [address] [facility] [id number] [place] 6[address]4063[address] Nov, [facility] [place] [facility] [address] [facility] [id number], [place] [address]- 7312 Nov, [facility] [address] [id number] [place] [id number] Oct, [facility] [place] [facility] [address] [facility] [id number], [place] [address]- 2326 Oct, [facility] [address] [id number] [place] 242451751 Oct, [facility] [place] [facility] [address] [facility] [id number], [place] [address]- 9121 Oct, [facility] [address] [id number] [place] [id number] Oct, [facility] [place] [facility] [address] [facility] [id number] [place] [address]- 6266 Oct, [facility] [address] [id number] [place] [id number] Oct, [facility] [place] [facility] [address] [facility] [id number], [place] [address]- 7590 Oct, [facility] [address] [facility] [id number], [place] 775563661 Aug, [facility] [address] [facility] [id number], [place] [address]- 5216 Aug, [facility] [address] [facility] [id number], [place] [address]82130572 Jul, [facility] [address] [facility] [id number], [place] [address] 2546 Jul, [facility] [address] [facility] [id number], [place] 45[address]10005 Jun, [facility] [place] [facility] [address], [place] [address]- 1596 Jun, [facility] [place] [facility] [id number], [place] [address] 2546 Jun, [facility] [id number], [place] 24[address] Jun, [facility] [address] [id number], [place] 045496547 May, [facility] [place] [facility] [address], [place] [address]- 0190 May, [facility] [place] [facility] [address] [id number], [place] [address]- 7269 May, [facility] [id number], [place] 323885343 May, [facility] [place] [facility] [address] [facility] [id number], [place] [address]- 2133 May, [facility] [address] [facility] [id number], [place] 944269690 May, [facility] [place] [facility] [address] [facility] [id number], [place] [address]- 8636 May, [facility] [address] [facility] [id number], [place] 089150743 May, [facility] [place] [facility] [address], [place] [address]- 8156 Apr, [facility] [address] [facility] [id number], [place] [address]- 4580 Apr, [facility] [address] [id number] [place] [id number] Apr, [facility] [place] [facility] [address] [facility] [id number], [place] [address]- 2546 Apr, [facility] [address] [facility] [id number], [place] [address]- 2544 Mar, [facility] [address] [id number] [place] 847407951 Mar, [facility] [address] [id number] [place] 925981862 Feb, [facility] [address] [id number] [place] 757959833 Feb, [facility] [address] [id number] [place] 665434977 Feb, [facility] [address] [id number] [place] 795194556 Jan, [facility] [address] [facility] [id number], [place] [address]- 2547 Jan, [facility] [address] [id number] [place] [id number] Jan, [facility] [address] [id number] [place] 479122628 December, [facility] [address] [facility] [id number], [place] [address]- 2546 December, [facility] [address] [id number] [place] [id number] December, [facility] [address] [id number] [place] 559473441 December, [facility] [address] [id number] [place] [id number] Nov, [facility] [address] [id number] [place] [id number] Nov[facility] [address] [facility] [id number], [place] [address] 10 Nov, 2012 [facility] [place] [address] [id number] [place] [id number] Nov, [facility] [address] [id number] [place] [id number] Oct, [facility] [address] [id number] [place] [id number] Oct, [facility] [address] [id number] [place] [id number] Oct, [facility] [address] [id number] [place] [id number] Oct, [facility] [address] [id number] [place] [id number] Sep, [facility] [address] [id number] [place] [id number] Sep, [facility] [address] [facility] [id number], [place] [address] Aug, [facility] [address] [facility] [id number], [place] [address] Aug, [facility] [address] [id number] [place] [id number] Aug, [facility] [address] [id number] [place] [id number] Aug, [facility] [address] [id number] [place] [id number] Jul, [facility] [address] [id number] [place] [id number] Jul, [facility] [address] [facility] [id number], [place] [address] Jul, [facility] [id number], [place] [address] Jul, [facility] [address] [id number] [place] [id number] Jul, [facility] [id number], [place] [address] Jul, [facility] [address] [id number] [place] [id number] Jul, [facility] [address] [facility] [id number] [address] Jul, [facility] [address] [facility] [id number], [place] [address] Jul, [facility] [place] [address] [id number] [place] [id number] Jul, [facility] [place] [address] [id number] [place] [id number] Jul, [facility] [place] [facility] [address] [facility] [id number], [place] [address] Jul, [facility] [place] [address] [facility] [id number] [id number] Jun, [facility] [place] [facility] [id number] [address] Jun, [facility] [place] [facility] [address] [facility] [id number], [place] [address] Jun, [facility] [place] [address] [facility] [id number][place] [id number] Jun, [facility] [place] [facility] [address] [id number], [place] [address] Jun, [facility] [place] [facility] [address] [facility] [id number], [place] [address] Jun, [facility] [place] [address] [id number][place] [id number] Jun, [facility] [place] [facility] [address] [facility] [id number] [address] Jun, [facility] [address] [facility] [id number][place] [id number] Jun, [facility] [place] [facility] [address] [facility] [id number], [place] [address] Jun, [facility] [address] [id number][place] [id number] May, [facility] [place] [facility] [address] [id number] [place] [address] Apr, [facility] [place] [facility] [address] [id number] [place] [address] Apr, [facility] [place] [address] [id number] [place] [id number] Apr, [facility] [address] [id number] [place] [id number] Apr, [facility] [address] [id number] [place] [id number] Apr, [facility] [address] [id number] [place] [id number] Apr, [facility] [address] [id number] [place] [id number] Apr, [facility] [address] [id number] [place] [id number] Mar, [facility] [address] [id number] [place] [id number] Mar, [facility] [address] [id number] [place] [id number] Mar, [facility] [address] [id number] [place] [address] Mar, [facility] [address] [id number] [place] [id number] Mar, [facility] [address] [id number] [place] [id number] Mar, [facility] [address] [id number] [place] [id number] Mar, [facility] [address] [id number] [place] [id number] Feb, [facility] [address] [id number] [place] [id number] Feb, [facility] [address] [id number] [place] [address] Jan, [facility] [address] [id number] [place] [id number] Jan, [facility] [address] [id number] [place] [id number] Jan, [facility] [address] [id number] [place] [id number] Jan, [facility] [address] [id number] [place] [id number] Jan, [facility] [address] [id number] [place] [address] Jan, [facility] [address] [id number] [place] [id number] December, [facility] [address] [id number] [place] [id number] Nov, [facility] [address] [id number] [place] [id number] Oct, [facility] [address] [id number] [place] [id number] Oct, [facility] [address] [id number] [place] [address] Oct, [facility] [address] [address] Oct, [facility] [address] [id number] [place] [address] Oct, [facility] [address] [id number] [place] [address] Oct, [facility] [address] [id number] [place] [address] Oct, [facility] [address] [id number] [place] [id number] Oct, [facility] [address] [id number] [place] [id number] Oct, [facility] [address] [id number] [place] [id number] Oct, [facility] [address] [id number] [place] [id number] 14 Sep, 2011 [facility] [id number] [place] [id number] Sep, [facility] [address] [id number] [place] [id number] Sep, [facility] [address] [id number] [place] [id number] Aug, [facility] [address] [id number] [place] [id number] Aug, [facility] [address] [id number] [place] [id number] Aug, [facility] [address] [facility] [id number], [place] [address] Aug, [facility] [address] [facility] [id number], [place] [address] Jul, [facility] [place] [facility] [address] [facility] [id number], [place] [address] Jul, [facility] [id number], [place] [address] Jul, [facility] [place] [facility] [id number], [place] [address] Jul, [facility] [place] [facility] [id number], [place] [address] Jun, [facility] [place] [facility] [id number], [place] [address] Jun, [facility] [place] [facility] [id number], [place] [address] May, [facility] [place] [facility] [address] [facility] [id number], [place] [address]- [address] May, [facility] [place] [facility] [address] [facility] [id number], [place] [address] December, [facility] [place] [facility] [address] [facility] [id number], [place] [address]- [address] December, [facility] [place] [facility] [address] [id number], [place] [address] Aug, [facility] [place] [facility] [address] [id number] [place] [address]- [address] 29 Jul, 2010 [facility] [place] [facility] [address] [id number] [place] [address]- [address] 28 Jul, 2010 [facility] [place] [facility] [address] [id number] [place] [address] 2546 23 Jul, 2010 [facility] [place] [facility] [address] [id number] [place] [address] 2546 16 Jul, 2010 [facility] [place] [facility] [address] [id number] [place] [address]46 16 Jul, 2010 [facility] [place] [facility] [address] [id number] [place] [address]- [address] 03 Jul, 2010 [facility] [place] [facility] [address] [id number] [place] [address] 30 Jun, 2010 [facility] [place] [facility] [address] [id number] [place] [address]- [address] 30 Jun, 2010 [facility] [address] [id number] [place] [address]- [address] 29 Jun, 2010 [facility] [place] [facility] [address] [id number] [place] [address]- [address] 23 Jun, 2010 [facility] [place] [facility] [address] [id number] [place] [address]- 48[address] Jun, [facility] [place] [facility] [address] [id number] [place] [address]- [address] 14 May, 2010 [facility] [place] [facility] [address] [id number] [place] [address]- [address] December, [facility] [place] [facility] [address] [id number] [place] [address] 2546 December, [facility] [place] [facility] [address] [id number] [place] [address] 2545 Oct, [facility] [place] [facility] [address] [id number] [place] [address] 788 Jul, [facility] [address] [facility] [id number] [place] [address] Jul, [facility] [address] [facility] [id number], [place] [address]- [address] Jul, [facility] [address] [facility] [id number], [place] [address]- [address] Jun, [facility] [address] [facility] [id number], [place] [address] May, [facility] [address] [facility] [id number], [place] [address] Jun, IMMUNIZATIONS No Known Immunizations SOCIAL HISTORY [...]
--- OUTSIDE RECORDS SUMMARY | 2018-07-11 11:25 | XMS REPORT ---
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 Name Role Phone JOSEP GONG Unavailable PROBLEMS Type Condition ICD9-CM Code KEU07-IJ Code Onset Dates Condition Status SNOMED Code Problem Chronic bronchitis, unspecified chronic bronchitis type J42 Active 62777661 Problem Vitamin D deficiency, unspecified E55.9 Active 38606501 Problem Chronic obstructive pulmonary disease with acute exacerbation J44.1 Active 810661770 Problem Gastric reflux K21.9 Active 572768499 Problem Right knee pain M25.561 Active 14257676 Problem Paroxysmal atrial fibrillation I48.0 Active 035827403 Problem Sprain of right knee, unspecified ligament, initial encounter S83.91XA Active 89782242 Problem Abscess L02.91 Active 447177880 Problem Obesity, unspecified E66.9 Active 12261862566453 Problem Chronic obstructive pulmonary disease, unspecified COPD type J44.9 Active 34365066 Problem Chronic congestive heart failure, unspecified heart failure type I50.9 Active 06518969 Problem Body mass index (BMI) of 40.0-44.9 in adult Z68.41 Active 230847397 Problem Hyperlipidemia, unspecified E78.5 Active 63513750 Problem Chronic renal disease, unspecified stage N18.9 Active 267773063 Problem Type 2 diabetes mellitus with other diabetic kidney complication E11.29 Active 640944754 Problem Essential hypertension I10 Active 80311655 Problem Proteinuria R80.9 Active 51940112 Problem Renal osteodystrophy N25.0 Active 32434178 Problem Chronic kidney disease, stage IV (severe) N18.4 Active 117282514 Problem Essential (primary) hypertension I10 Active 95763871 Problem Venous (peripheral) insufficiency I87.2 Active 58364336 Problem Anemia of renal disease D63.1 Active 304682056 Problem Type 2 diabetes mellitus with diabetic nephropathy E11.21 Active 598019052 ALLERGIES Substance Reaction Event Type Date Status Percocet rash Drug Allergy Jul, Active Nubain rash Drug Allergy Jul, Active Lyrica anaphylaxis Drug Allergy Jul, Active Januvia rash Drug Allergy Jul, Active Fluoxetine nausea Drug Allergy Jul, Active Bexarotene rash Drug Allergy Jul, Active IV dye hives Non Drug Allergy Jul, Active ENCOUNTERS Encounter Location Date Diagnosis [id number] [id number] Feb, [address] [place] [address] [id number] Jan, Body mass index (BMI) 70 or greater, adult Z68.45 and Type 2 diabetes mellitus with other diabetic kidney complication E11.[address] [place] [address] [id number] Nov, Body mass index (BMI) 70 or greater, adult Z68.45 ; Chronic obstructive pulmonary disease, unspecified COPD type J44.9 ; Chronic kidney disease, stage IV (severe) N18.4 and Gastric reflux K21.9 [facility] [address] [place] [address] [id number] Oct, Body mass index (BMI) 70 or greater, adult Z68.45 ; Type 2 diabetes mellitus with other diabetic kidney complication E11.29 ; Chronic obstructive pulmonary disease with acute exacerbation J44.1 and Paroxysmal atrial fibrillation I48.0 [address] [id number] Oct, [place] [id number] [place] [address] [id number] Oct, Type 2 diabetes mellitus with diabetic nephropathy E11.21 ; Chronic renal disease, unspecified stage N18.9 ; Chronic congestive heart failure, unspecified heart failure type I50.9 and Chronic obstructive pulmonary disease with acute exacerbation J44.1 [address] [id number] Sep, [address] [id number] Sep, [address] [place] [address] [id number] Sep, [facility] [id number] [place] [address] 2546 Sep, Type 2 diabetes mellitus with diabetic nephropathy E11.21 [place] [id number] [place] [address] [id number] Aug, Influenza J11.1 and Essential (primary) hypertension I10 [facility] [address] [address] Aug, [address] [id number] Jul, Type 2 diabetes mellitus with diabetic nephropathy E11.21 ; Essential ( primary) hypertension I10 and Chronic obstructive pulmonary disease, unspecified COPD type J44.9 [facility] [address] [id number] Jun, Dental caries K02.[address] [id number] May, Cough R05 ; Chronic obstructive pulmonary disease, unspecified COPD type J44.9 ; Shortness of breath R06.02 ; Obesity, unspecified E66.9 ; Body mass index (BMI) of 40.0-44.9 in adult Z68.41 and Encounter for immunization Z23 [facility] [address] [id number] May, Dental examination Z01.20 [place] [id number] [place] [address] [id number] May, Essential hypertension I10 [address] [id number] Apr, Anemia of renal disease D63.1 ; Type 2 diabetes mellitus with other diabetic kidney complication E11.29 ; Vitamin D deficiency, unspecified E55.9 and Chronic renal disease, unspecified stage N18.9 [facility] [id number] [place] [address]- [address] Mar, [address] [id number] Mar, Type 2 diabetes mellitus with other diabetic kidney complication E11.29 ; Essential hypertension I10 ; Chronic renal disease, unspecified stage N18.9 and Chronic obstructive pulmonary disease with acute exacerbation J44.1 [place] [id number] [place] [address] [id number] Feb, [place] [id number] [place] [address] [id number] Feb, Chronic renal disease, unspecified stage N18.9 ; Essential (primary) hypertension I10 and Type 2 diabetes mellitus with other diabetic kidney complication E11.29 [place] [id number] [place] [address] [id number] Feb, Type 2 diabetes mellitus with other diabetic kidney complication E11.29 ; Chronic kidney disease, stage IV (severe) N18.4 ; Renal osteodystrophy N25.0 ; Anemia of renal disease D63.1 and Essential (primary) hypertension I10 [place] [id number] [place] [address] [id number] December, [address] [id number] December, Chronic obstructive pulmonary disease with acute exacerbation J44.1 ; Essential (primary) hypertension I10 ; Low back pain M54.5 and Right knee pain M25.561 [place] [id number] [place] [address] [id number] Nov, Chronic renal disease, unspecified stage N18.9 ; Essential hypertension I10 ; Type 2 diabetes mellitus with other diabetic kidney complication E11.29 and Chronic obstructive pulmonary disease with acute exacerbation J44.1 [place] [id number] [place] [address] [id number] Nov, Chronic renal disease, unspecified stage N18.9 ; Hyperlipidemia, unspecified E78.5 and Essential hypertension I10 [address] [id number] Oct, Chronic bronchitis, unspecified chronic bronchitis type J42 and Type 2 diabetes mellitus with diabetic nephropathy E11.21 [place] [id number] [place] [address] [id number] Sep, Chronic bronchitis, unspecified chronic bronchitis type J42 ; Essential ( primary) hypertension I10 and Type 2 diabetes mellitus with other diabetic kidney complication E11.29 [address] [place] [address] [id number] Sep, Chronic obstructive pulmonary disease with acute exacerbation J44.1 [address] [place] [address] [id number] Aug, Type 2 diabetes mellitus with diabetic nephropathy E11.21 ; Chronic kidney disease, stage IV (severe) N18.4 ; Essential (primary) hypertension I10 and Encounter for immunization Z23 [address] [place] [address] [id number] Aug, Chronic kidney disease, stage IV (severe) N18.4 ; Type 2 diabetes mellitus with diabetic nephropathy E11.21 and Type 2 diabetes mellitus with hyperglycemia E11.65 [address] [place] [address] [id number] May, Anemia of renal disease D63.1 ; Essential (primary) hypertension I10 ; Renal osteodystrophy N25.0 ; Proteinuria R80.9 ; Chronic kidney disease, stage IV (severe) N18.4 and Type 2 diabetes mellitus with other diabetic kidney complication E11.29 [address] [place] [address] [id number] Mar, Type 2 diabetes mellitus with other diabetic kidney complication E11.29 ; Essential hypertension I10 ; Chronic renal disease, unspecified stage N18.9 and TMJ (temporomandibular joint disorder) M26.[address] [place] [address] [id number] Jan, Chronic kidney disease, stage IV (severe) N18.4 and Hyperlipidemia, unspecified E78.5 [address] [place] [address] [id number] December, Type 2 diabetes mellitus with other diabetic kidney complication E11.29 ; Abscess L02.91 and Chronic kidney disease, stage IV (severe) N18.4 [address] [place] [address] [id number] December, Abscess L02.91 [place] [id number] [id number] December, [facility] [id number] [id number] Oct, Renal osteodystrophy N25.0 ; Chronic kidney disease, stage IV (severe) N18.4 and Vitamin D deficiency E55.9 [facility] [id number] [place] [address] [id number] Oct, [facility] [id number] [place] [address] [id number] Sep, Type 2 diabetes mellitus with other diabetic kidney complication E11.29 ; Essential hypertension I10 and Chronic airway obstruction, not elsewhere classified J44.9 [facility] [id number] [place] [address] [id number] Sep, [facility] [id number] [place] [address] [id number] Aug, [facility] [address] [place] [id number] [place] [address] [id number] Jul, [facility] [id number] [place] [address] [id number] Jul, [address] [place] [address] [id number] Jul, Chronic kidney disease, stage IV (severe) N18.4 ; Renal osteodystrophy N25.0 and Proteinuria R80.9 [facility] [address], [place] [address] Jul, [facility] [address] [id number] [id number] Jun, [facility] [address] [id number] [id number] Jun, [place] [id number] [place] [address] [id number] Jun, Diabetes with renal manifestations, type II or unspecified type, uncontrolled 250.42 and Right knee pain M25.561 [facility] [address] [address] May, [address] [place] [address] [id number] May, Abscess L02.91 ; Encounter for immunization Z23 and Sprain of right knee, unspecified ligament, initial encounter S83.91XA [place] [id number] [place] [address] [id number] May, Abscess L02.[address] [id number] [place] [address] [id number] May, [place] [id number] [place] [address] [id number] Apr, Diabetes with renal manifestations, type II or unspecified type, uncontrolled 250.42 and PPV23 (PNEUMOVAX) DX V03.82 [place] [id number] [place] [address] [id number] Mar, [place] [address] [place] [address] [id number] Mar, Proteinuria 791.0 ; Renal osteodystrophy 588.0 ; Chronic kidney disease, Stage IV (severe) 585.4 ; Benign essential hypertension 401.1 and Vitamin D deficiency 268.9 [place] [id number] [place] [address] [id number] Feb, Avulsion fracture of ankle 824.[address] [place] [address] [id number] Feb, [place] [id number] [place] [address] [id number] Feb, [place] [address] [place] [address] [id number] Feb, Diabetes with renal manifestations, type II or unspecified type, uncontrolled 250.42 [place] [address] [place] [address] [id number] Jan, Diabetes with renal manifestations, type II or unspecified type, uncontrolled 250.[address] [place] [address] [id number] December, Diabetes with renal manifestations, type II or unspecified type, uncontrolled 250.42 and Unspecified essential hypertension 401.9 [facility] [address] [id number] [place] [id number] December, [facility] [address] [id number] [place] [id number] December, [facility] [address] [id number] [place] [id number] December, Essential hypertension 401.9 [facility] [address] [facility] [id number] [place] [id number] Nov, Essential hypertension 401.9 [facility] [place] [address] [id number] [place] [id number] Nov, [facility] [address] [facility] [id number] [place] [id number] Nov, [facility] [address] [facility] [id number] [place] [id number] Nov, [facility] [address], [place] [address]- [address] Nov, [facility] [place] [facility] [address], [place] [address]- 2546 Nov, [facility] [address] [place] [address] [id number] [place] [id number] Oct, [facility] [place] [facility] [address], [place] [address]- 14[address] Oct, [facility] [address] [place] [id number] [place] [id number] Oct, [facility] [place] [facility] [address], [place] [address]- 2546 Oct, [facility] [place] [facility] [address] [id number], [place] [address]- 25[address] Oct, [facility] [place] [address] [facility] [id number] [place] [id number] Oct, [facility] [address] [id number] [place] [id number] Oct, [facility] [place] [facility] [address], [place] [address]- 6[address] Oct, [facility] [place] [facility] [address] [facility] [id number], [place] [address]- 9126 Sep, [facility] [place] [address] [facility] [id number] [place] [id number] Sep, [facility] [address] [facility] [id number] [place] [id number] Sep, [facility] [place] [facility] [address] [facility] [id number], [place] [address]- 2546 Sep, [facility] [place] [address] [facility] [id number] [place] [id number] Aug, [facility] [place] [facility] [address] [facility] [id number], [place] [address]- 3716 Aug, [facility] [address] [facility] [id number] [place] [id number] Aug, [facility] [address], [place] [address]- 4[address] Aug, [facility] [address] [facility] [id number] [place] [id number] Aug, [facility] [place] [facility] [address] [facility] [id number], [place] [address]- 88[address] Aug, [facility] [place] [facility] [address] [facility] [id number], [place] [address]- 1336 Aug, [facility] [place] [address] [place] [address] [id number] [place] [id number] Aug, [facility] [place] [facility] [address] [facility] [id number], [place] [address]- 9686 Jul, [facility] [place] [facility] [address] [facility] [id number], [place] [address]- 8466 Jul, [facility] [address] [facility] [id number] [place] [id number] Jul, [facility] [place] [facility] [address] [facility] [id number], [place] [address]- 9596 Jul, [facility] [address] [facility] [id number] [place] [id number] Jul, [facility] [place] [facility] [address] [id number] [place] [address]- 7926 Jul, [facility] [address] [id number] [place] [id number] Jul, [facility] [place] [facility] [address] [facility] [id number] [place] [address]- 5376 Jul, [facility] [place] [facility] [address] [facility] [id number] [place] [address]- 7016 May, [facility] [address] [id number] [place] [id number] May, [facility] [address] [id number] [place] [id number] May, [facility] [place] [facility] [address] [facility] [id number], [place] [address]- 0686 May, [facility] [address] [facility] [id number] [place] [id number] Apr, [facility] [place] [facility] [address] [facility] [id number], [place] [address]- 1858 Apr, [facility] [address] [facility] [id number] [place] [id number] Mar, [facility] [place] [facility] [address] [facility] [id number], [place] [address]- 0116 Mar, [facility] [place] [facility] [address] [facility] [id number], [place] [address]- 9936 Mar, [facility] [place] [facility] [address] [facility] [id number], [place] [address]- 9296 Mar, [facility] [address] [id number] [place] [id number] Mar, [facility] [address] [id number] [place] [id number] Feb, [facility] [place] [facility] [address] [facility] [id number], [place] [address]- 3761 Feb, [facility] [address] [id number] [place] [id number] Jan, [facility] [place] [facility] [address] [id number] [place] [address]- 2196 Jan, [facility] [place] [facility] [address] [id number] [place] [address]- 8756 Jan, [facility] [address] [id number] [place] [id number] Jan, [facility] [address] [id number] [place] [id number] Jan, [facility] [place] [facility] [address] [id number] [place] [address]- 5308 Jan, [facility] [address] [facility] [id number] [place] [id number] December, [facility] [place] [facility] [address] [facility] [id number] [place] [address]- 4536 December, [facility] [place] [facility] [address] [facility] [id number] [place] [address]- 3270 Nov, [facility] [place] [facility] [address] [facility] [id number] [place] [address]- 8280 Nov, [facility] [address] [facility] [id number] [place] [id number] Nov, [facility] [place] [facility] [address] [facility] [id number], [place] [address]- 0106 Nov, [facility] [address] [facility] [id number] [place] [id number] Oct, [facility] [place] [facility] [address] [id number] [place] [address]- 3256 Oct, [facility] [address] [id number] [place] [id number] Oct, [facility] [place] [facility] [address] [facility] [id number] [place] [address]- 1216 Oct, [facility] [address] [id number] [place] [id number] Oct, [facility] [place] [facility] [address] [facility] [id number], [place] [address]- 2546 Oct, [facility] [address] [id number] [place] [id number] Oct, [facility] [place] [facility] [address] [facility] [id number], [place] [address]- 6296 Oct, [facility] [address] [facility] [id number] [place] [id number] Aug, [facility] [place] [facility] [address] [facility] [id number], [place] [address]- 4724 Aug, [facility] [address] [id number] [place] [id number] Jul, [facility] [place] [facility] [address] [facility] [id number], [place] [address]- 0866 Jul, [facility] [address] [facility] [id number] [place] [id number] Jun, [facility] [place] [facility] [address] [facility] [id number], [place] [address]- 7654 Jun, [facility] [place] [facility] [address] [facility] [id number], [place] [address]- 9494 Jun, [facility] [address] [facility] [id number] [place] [id number] Jun, [facility] [address] [facility] [id number] [place] [id number] May, [facility] [place] [facility] [address] [facility] [id number], [place] [address] 2546 May, [facility] [place] [facility] [address] [facility] [id number], [place] [address]- 5694 May, [facility] [address] [facility] [id number] [place] [id number] May, [facility] [place] [facility] [address] [facility] [id number], [place] [address]- 5466 May, [facility] [address] [id number] [place] [id number] May, [facility] [place] [facility] [address] [facility] [id number], [place] [address]- 2546 May, [facility] [address] [id number] [place] [id number] May, [facility] [place] [facility] [address] [facility] [id number], [place] [address]- 5241 Apr, [facility] [place] [facility] [address] [facility] [id number], [place] [address]- 2100 Apr, [facility] [address] [id number] [place] [id number] Apr, [facility] [place] [facility] [address] [facility] [id number], [place] [address]- 3497 Apr, [facility] [place] [facility] [address] [facility] [id number] [place] [address]- 9358 Mar, [facility] [address] [id number] [place] [id number] Mar, [facility] [address] [id number] [place] [id number] Feb, [facility] [address] [id number] [place] [id number] Feb, [facility] [address] [id number] [place] 420918655 Feb, [facility] [address] [id number] [place] [id number] Jan, [facility] [place] [facility] [address] [facility] [id number], [place] [address]- 2546 Jan, [facility] [address] [id number] [place] 092153581 Jan, [facility] [address] [id number] [place] 629323434 December, [facility] [place] [facility] [address] [facility] [id number], [place] [address]- 7477 December, [facility] [address] [id number] [place] [id number] December, [facility] [address] [id number] [place] [id number] December, [facility] [address] [id number] [place] [id number] Nov, [facility] [address] [id number] [place] [id number] Nov, [facility] [address] [id number], [place] [address]- 2546 Nov, [facility] [address] [id number] [place] [id number] Nov, [facility] [address] [id number] [place] [id number] Oct, [facility] [address] [id number] [place] [id number] Oct, [facility] [address] [id number] [place] 045194237 Oct, [facility] [address] [id number] [place] [id number] Oct, [facility] [address] [id number] [place] [id number] Sep, [facility] [address] [id number] [place] 627721372 Sep, [facility] [address] [facility] [id number], [place] [address]- 2546 Aug, [facility] [address] [facility] [id number], [place] [address]- 1393 Aug, [facility] [address] [id number] [place] [id number] Aug, [facility] [address] [id number] [place] [id number] Aug, [facility] [address] [id number] [place] [id number] Jul, [facility] [address] [id number] [place] [id number] Jul, [facility] [address] [facility] [id number], [place] [address] Jul, [facility] [address] [facility] [id number], [place] [address] Jul, [facility] [address] [facility] [id number] [place] [id number] Jul, [facility] [address] [facility] [id number], [place] [address] Jul, [facility] [address] [facility] [id number] [place] [id number] Jul, [facility] [address] [facility] [id number], [place] [address] Jul, [facility] [address] [facility] [id number], [place] [address] Jul, [facility] [address] [facility] [id number] [place] [id number] Jul, [facility] [address] [id number] [place] [id number] Jul, [facility] [id number], [place] [address] Jul, [facility] [address] [facility] [id number] [place] [id number] Jun, [facility] [id number], [place] [address] Jun, [facility] [address] [id number], [place] [address] Jun, [facility] [address] [facility] [id number] [place] [id number] Jun, [facility] [address] [facility] [id number], [place] [address] Jun, [facility] [place] [facility] [address] [facility] [id number], [place] [address] Jun, [facility] [place] [address] [facility] [id number] [place] [id number] Jun, [facility] [place] [facility] [address], [place] [address] Jun, [facility] [place] [address] [id number] [place] [id number] Jun, [facility] [address] [facility] [id number], [place] [address] Jun, [facility] [place] [address] [id number] [place] [id number] May, [facility] [address] [facility] [id number], [place] [address] Apr, [facility] [address] [facility] [id number], [place] [address] Apr, [facility] [place] [address] [id number] [place] [id number] Apr, [facility] [place] [address] [id number] [place] [id number] Apr, [facility] [place] [address] [id number] [place] [id number] Apr, [facility] [place] [address] [id number] [place] [id number] Apr, [facility] [place] [address] [id number] [place] [id number] Apr, [facility] [place] [address] [id number] [place] [id number] Mar, [facility] [place] [address] [id number] [place] [id number] Mar, [facility] [place] [address] [id number] [place] [id number] Mar, [facility] [place] [address] [id number] [place] [id number] Mar, [facility] [place] [address] [id number] [place] [id number] Mar, [facility] [place] [address] [id number] [place] [id number] Mar, [facility] [place] [address] [id number] [place] [id number] Mar, [facility] [place] [address] [id number] [place] [id number] Feb, [facility] [place] [address] [id number] [place] [id number] Feb, [facility] [place] [address] [id number] [place] [id number] Jan, [facility] [place] [address] [id number] [place] [id number] Jan, [facility] [place] [address] [id number] [place] [id number] Jan, [facility] [place] [address] [id number] [place] [id number] Jan, [facility] [place] [address] [id number] [place] [id number] Jan, [facility] [place] [address] [id number] [place] [id number] Jan, [facility] [place] [address] [id number] [place] [id number] December, [facility] [place] [address] [id number] [place] [id number] Nov, [facility] [place] [address] [id number] [place] [id number] Oct, [facility] [place] [address] [id number] [place] [id number] Oct, [facility] [place] [address] [id number] [place] [id number] Oct, [facility] [address] [id number], [place] [address] Oct, [facility] [place] [address] [id number] [place] [id number] Oct, [facility] [place] [address] [id number] [place] [id number] Oct, [facility] [place] [address] [id number] [place] [id number] Oct, [facility] [place] [address] [id number] [place] [id number] Oct, [facility] [place] [address] [id number] [place] [id number] Oct, [facility] [place] [address] [id number] [place] [id number] Oct, [facility] [place] [address] [id number] [place] [id number] Sep, [facility] [place] [facility] [address] [facility] [id number], [place] [address] Sep, [facility] [place] [address] [id number] [place] [id number] Sep, [facility] [place] [address] [id number] [place] [id number] Aug, [facility] [place] [address] [id number] [place] [id number] Aug, [facility] [place] [address] [id number] [place] [id number] Aug, [facility] [place] [facility] [address], [place] [address] Aug, [facility] [place] [facility] [id number], [place] [address] Jul, [facility] [place] [facility] [id number] [id number] Jul, [facility] [place] [facility] [id number] [address] Jul, [facility] [place] [facility] [id number] Jul, [facility] [place] [facility] [address], [place] [address] Jun, [facility] [place] [facility] [address] [facility] [id number], [place] [address] Jun, [facility] [place] [facility] [address] [facility] [id number], [place] [address] May, [facility] [place] [facility] [address] [facility] [id number], [place] [address] May, [facility] [place] [facility] [address], [place] [address] December, [facility] [address] [id number] [place] [address] December, [facility] [address] [id number] [place] [address] 14 Aug, 2010 [facility] [address] [id number] [place] [address] 29 Jul, 2010 [facility] [place] [facility] [address] [id number] [place] [address] 28 Jul, 2010 [facility] [address] [id number] [place] [address] Jul, [facility] [place] [facility] [address] [id number] [place] [address] 16 Jul, 2010 [facility] [address] [id number] [place] [address] 16 Jul, 2010 [facility] [place] [facility] [address] [id number] [place] [address] Jul, [facility] [address] [id number] [place] [address] 30 Jun, 2010 [facility] [place] [facility] [address] [id number] [place] [address] 30 Jun, 2010 [facility] [place] [facility] [address] [id number], [place] [address] 29 Jun, 2010 [facility] [place] [facility] [address] [id number] [place] [address] Jun, [facility] [place] [facility] [address] [id number] [place] [address] Jun, [facility] [place] [facility] [address] [id number] [place] [address] 14 May, 2010 [facility] [place] [facility] [address] [id number] [place] [address] December, [facility] [place] [facility] [address] [id number], [place] [address] December, [facility] [id number], [place] [address] Oct, [facility] [id number], [place] [address] Jul, [facility] [id number], [place] [address] Jul, [facility] [id number], [place] [address] Jul, [facility] [id number] [place] [address] Jun, [facility] [address], [place] [address] May, [facility] [address], [place] [address] Jun, IMMUNIZATIONS No Known Immunizations SOCIAL HISTORY Never Assessed REASON FOR VISIT Diabetes follow up Laurence JACOBSEN PLAN OF CARE Activity Details Follow Up 3 Months Reason:dm VITAL SIGNS Height 54 in 2017-07-24 Weight 323.6 lbs 2017-07-24 Temperature 97.8 degrees Fahrenheit 2017-07-24 Heart Rate 60 bpm 2017-07-24 Respiratory Rate 18 2017-07-24 BMI 78.01 kg/m2 2017-07-24 Blood pressure systolic 142 mmHg 2017-07-24 Blood pressure diastolic 70 mmHg 2017-07-24 MEDICATIONS Medication Instructions Dosage Frequency Start Date End Date Duration Status Loratadine 10 MG TAKE ONE (1) TABLET BY MOUTH DAILY... 90 Active Iron Supplement 325 (65 Fe) MG Orally twice a day 2 tablet in am and 1 tab at hs 12h Active Oxygen & Tubing by inhalation route 13/03 2 / nc w protable O2 and conserving device Oct, Active Lantus 100 UNIT/ML INJECT (53 UNITS) BY SUBCUTANEOUS ROUTE IN THE MORNING AND (40 UNITS)IN THE EVENING. Active Pepcid 20 MG TAKE 1 TABLET BY MOUTH ONCE DAILY AT BEDTIME... Active Glucometer as directed Aug, Active Bathtub Safety Rail - as directed December, Active Sertraline HCl 100 MG Orally Once a day 1 tablet 24h Active Amlodipine Besylate 10 mg Orally Once a day 1 tablet 24h Active Mevacor 20 MG TAKE (1) TABLET BY MOUTH ONCE DAILY WITH A MEAL. Active Oxybutynin Chloride 5 MG Orally 3 times a day 1 tablet 8h Active Bath/Shower Seat - as directed December, Active Actos 15 MG TAKE ONE (1) TABLET BY MOUTH DAILY... Active Furosemide 20 mg Orally every other day 1 tablet Active Sodium Bicarbonate 650 mg Take 2 tablet by mouth twice a day Active Zoloft 100 MG TAKE ONE (1) TABLET BY MOUTH DAILY... Active Zemplar 1 MCG 1 capsule Active Test strips 1 subcutaneously 2 times a day as directed 12h Aug, Active Nexium 40 MG TAKE ONE (1) CAPSULE BY MOUTH TWICE DAILY... 90 Active Vitamin D (Ergocalciferol) 11777 UNIT Orally twice a month 1 capsule Active ProAir HFA 108 (90 Base) MCG/ACT Inhalation every 4 hrs 2 puffs as needed 4h Active Uloric 40 MG Orally Once a day 1 tablet 24h Active Metoprolol Succinate 100 mg Orally 2 times a day 1 tablet 12h Active RESULTS No Results PROCEDURES Procedure Date Ordered Result Body Site [facility] VISIT ESTABLISHED PATIENT Jul 24, 2017 INSTRUCTIONS MEDICATIONS ADMINISTERED No Known Medications [...] Hospitalization History surgeries, childbirth Hospitalization History Kamille RODRÍGUEZ N/V/D 05/2015 Hospitalization History Kamille RODRÍGUEZ influenza 08/2017 Hospitalization History CHF exacerbation 08/2017
--- OUTSIDE RECORDS SUMMARY | 2018-07-11 11:30 | XMS REPORT | Continuity of Care Document ---
Author Author [facility] Organization [facility] Address Unknown Phone Unavailable Allergies Active Description Code Type Severity Reaction Onset Reported/Identified Relationship to Patient Clinical Status Yes iodine [id number] Drug Allergy Unknown N/A 03/14/2006 Yes Iodinated Contrast- Oral and IV Dye [id number] Drug Allergy Moderate N/A Yes nalbuphine [id number] Drug Allergy Moderate N/A 11/05/2007 Yes pregabalin [id number] Drug Allergy Moderate N/A 11/05/2007 Yes valdecoxib [id number] Drug Allergy Mild N/A 12/03/2007 Yes sitagliptin [id number] Drug Allergy Unknown HIVES 09/29/2017 Medications There [...] FACP CCDS Ot 414.01 CORONARY ATHEROSCLEROSIS OF [place] CORON 06/26/2013 MONI BURGOS FACC, SHANNON FACP CCDS Ot 583.81 NEPHRITIS NOS IN OTH DIS 06/26/2013 MONI BURGOS FACC, ALI FACP CCDS Ot 585.9 CHRONIC KIDNEY DISEASE, UNSPECIFIED 06/26/2013 MONI BURGOS FACC, ALI FACP CCDS Ot 786.59 CHEST PAIN NEC 06/26/2013 MONI BURGOS FACC, SHANNON FACP CCDS Ot V58.67 LONG-TERM (CURRENT) USE OF INSULIN 06/26/2013 MONI BURGOS FACC, SHANNON GONSALESP CCDS Ot V58.69 [facility],CURRENT USE 02/28/2014 AMEYA MCCOY MD Ot [...] MCCOY MD Ot 414.01 CORONARY ATHEROSCLEROSIS OF [place] CORON 02/28/2014 AMEYA MCCOY MD Ot 424.0 [...] USE OF INSULIN 09/29/2017 SANDER MERLENE L SEISMOGRAPH SHOOTER Ot 786.50 CHEST PAIN NOS 09/29/2017 BAIMA, MERLENE L SEISMOGRAPH SHOOTER Ot 786.50 CHEST PAIN NOS 09/29/2017 SANDER, MERLENE L SEISMOGRAPH SHOOTER Ot 585.9 CHRONIC KIDNEY DISEASE, UNSPECIFIED 09/29/2017 JCARLOSMA, MERLENE L SEISMOGRAPH SHOOTER Ot 786.09 RESPIRATORY ABNORM NEC 09/29/2017 JCARLOSMA, MERLENE L SEISMOGRAPH SHOOTER Ot 786.2 COUGH 09/29/2017 JCARLOSMA, MERLENE L SEISMOGRAPH SHOOTER Ot 403.90 HYPTNSV CHR KID DIS, UNSPEC, W CHR KD ST 09/29/2017 SANDER MERLENE L SEISMOGRAPH SHOOTER Ot 414.00 CORON ATHEROSCLER NOS TYPE VESSEL, NATIV 09/29/2017 SANDER MERLENE L SEISMOGRAPH SHOOTER Ot 585.9 CHRONIC KIDNEY DISEASE, UNSPECIFIED 09/29/2017 JCARLOSMA MERLENE L SEISMOGRAPH SHOOTER Ot 786.09 RESPIRATORY ABNORM NEC 09/29/2017 SANDER MERLENE L SEISMOGRAPH SHOOTER Ot 786.2 COUGH 10/02/2017 [place] AMAYA MD [...] MD, Ot I25.10 ATHSCL HEART DISEASE OF [place] CORONARY 10/02/2017 [place] AMAYA MD, Ot I48.91 [...] ADULT 10/02/2017 [place] AMAYA MD, Ot Z79.4 CUSTODIAL (CURRENT) USE OF INSULIN 10/02/2017 [place] AMAYA MD, Ot Z99.81 DEPENDENCE ON SUPPLEMENTAL OXYGEN 11/18/2017 SONDRA POE MD Ot 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 11/18/2017 SONDRA POE MD Ot E66.01 MORBID (SEVERE) OBESITY DUE TO EXCESS CA 11/18/2017 SONDRA POE MD Ot E78.00 PURE HYPERCHOLESTEROLEMIA, UNSPECIFIED 11/18/2017 SONDRA POE MD Ot F32.9 MAJOR DEPRESSIVE DISORDER, SINGLE EPISOD 11/18/2017 SONDRA POE MD, Ot G47.9 SLEEP DISORDER, UNSPECIFIED 11/18/2017 SONDRA POE MD Ot I12.0 HYP CHR KIDNEY DISEASE W STAGE 5 CHR KID 11/18/2017 SONDRA POE MD Ot I25.10 ATHSCL HEART DISEASE OF [place] CORONARY 11/18/2017 SONDRA POE MD Ot I48.91 UNSPECIFIED ATRIAL FIBRILLATION 11/18/2017 SONDRA POE MD Ot J44.9 CHRONIC OBSTRUCTIVE PULMONARY DISEASE, U 11/18/2017 SONDRA POE MD, Ot K21.9 GASTRO-ESOPHAGEAL REFLUX DISEASE WITHOUT 11/18/2017 SONDRA POE MD Ot L03.114 CELLULITIS OF LEFT UPPER LIMB 11/18/2017 SONDRA POE MD Ot N18.6 END STAGE RENAL DISEASE 11/18/2017 SONDRA POE MD, Ot R07.9 CHEST PAIN, UNSPECIFIED 11/18/2017 SONDRA POE MD, Ot Z68.43 BODY MASS INDEX (BMI) 50-59.9 , ADULT 11/18/2017 SONDRA POE MD, Ot Z79.01 CUSTODIAL (CURRENT) USE OF ANTICOAGULANT 11/18/2017 SONDRA POE MD, Ot Z79.4 CUSTODIAL (CURRENT) USE OF INSULIN 11/18/2017 SONDRA POE MD, Ot Z79.82 CUSTODIAL (CURRENT) USE OF ASPIRIN 11/18/2017 SONDRA POE MD, Ot Z86.73 PRSNL HX OF TIA (TIA), AND CEREB INFRC W 11/18/2017 SONDRA POE MD, Ot Z87.19 PERSONAL HISTORY OF OTHER DISEASES OF TH 11/18/2017 SONDRA POE MD, Ot Z87.442 PERSONAL HISTORY OF URINARY CALCULI 11/18/2017 SONDRA POE MD, Ot Z88.1 ALLERGY STATUS TO OTHER ANTIBIOTIC AGENT 11/18/2017 SONDRA POE MD, Ot Z88.8 ALLERGY STATUS TO OTH DRUG/MEDS/BIOL SUB 11/18/2017 SONDRA POE MD, Ot Z91.041 RADIOGRAPHIC DYE ALLERGY STATUS 11/18/2017 SONDRA POE MD, Ot Z99.2 DEPENDENCE ON RENAL DIALYSIS 11/18/2017 SONDRA POE MD, Ot Z99.81 DEPENDENCE ON SUPPLEMENTAL OXYGEN 11/20/2017 SONDRA POE MD, Ot 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 11/20/2017 SONDRA POE MD, Ot E66.01 MORBID (SEVERE) OBESITY DUE TO EXCESS CA 11/20/2017 SONDRA POE MD, Ot E78.00 PURE HYPERCHOLESTEROLEMIA, UNSPECIFIED 11/20/2017 SONDRA POE MD, Ot F32.9 MAJOR DEPRESSIVE DISORDER, SINGLE EPISOD 11/20/2017 SONDRA POE MD, Ot G47.9 SLEEP DISORDER, UNSPECIFIED 11/20/2017 SONDRA POE MD, Ot I12.0 HYP CHR KIDNEY DISEASE W STAGE 5 CHR KID 11/20/2017 SONDRA POE MD, Ot I25.10 ATHSCL HEART DISEASE OF [place] CORONARY 11/20/2017 SONDRA POE MD, Ot I48.91 UNSPECIFIED ATRIAL FIBRILLATION 11/20/2017 SONDRA POE MD, Ot J44.9 CHRONIC OBSTRUCTIVE PULMONARY DISEASE, U 11/20/2017 SONDRA POE MD, Ot K21.9 GASTRO-ESOPHAGEAL REFLUX DISEASE WITHOUT 11/20/2017 SONDRA POE MD, Ot L03.114 CELLULITIS OF LEFT UPPER LIMB 11/20/2017 SONDRA POE MD, Ot N18.6 END STAGE RENAL DISEASE 11/20/2017 SONDRA POE MD, Ot R07.9 CHEST PAIN, UNSPECIFIED 11/20/2017 SONDRA POE MD, Ot Z68.43 BODY MASS INDEX (BMI) 50-59.9 , ADULT 11/20/2017 SONDRA POE MD, Ot Z79.01 AUTOMATIC QUILLING MACHINE OPERATOR (CURRENT) USE OF ANTICOAGULANT 11/20/2017 SONDRA POE MD, Ot Z79.4 AUTOMATIC QUILLING MACHINE OPERATOR (CURRENT) USE OF INSULIN 11/20/2017 SONDRA POE MD, Ot Z79.82 AUTOMATIC QUILLING MACHINE OPERATOR (CURRENT) USE OF ASPIRIN 11/20/2017 SONDRA POE [...] Ot Z91.041 RADIOGRAPHIC DYE ALLERGY STATUS 11/20/2017 LUI BURGOS, SONDRA Myrick Ot Z99.2 DEPENDENCE ON RENAL DIALYSIS 11/20/2017 LUI BURGOS, SONDRA Myrick Ot Z99.81 DEPENDENCE ON SUPPLEMENTAL OXYGEN 12/05/2017 JCARLOSMA, MERLENE L SEISMOGRAPH SHOOTER Ot 786.50 CHEST PAIN NOS 12/05/2017 BAIMA, MERLENE L SEISMOGRAPH SHOOTER Ot 786.50 CHEST PAIN NOS 12/05/2017 BAIMA, MERLENE L SEISMOGRAPH SHOOTER Ot 585.9 CHRONIC KIDNEY DISEASE, UNSPECIFIED 12/05/2017 BAIMA, MRELENE L SEISMOGRAPH SHOOTER Ot 786.09 RESPIRATORY ABNORM NEC 12/05/2017 BAIMA, MERLENE L SEISMOGRAPH SHOOTER Ot 786.2 COUGH 12/05/2017 BAIMA, MERLENE L SEISMOGRAPH SHOOTER Ot 403.90 HYPTNSV CHR KID DIS, UNSPEC, W CHR KD ST 12/05/2017 BAIMA, MERLENE L SEISMOGRAPH SHOOTER Ot 414.00 CORON ATHEROSCLER NOS TYPE VESSEL, NATIV 12/05/2017 JCARLOSMA, MERLENE L SEISMOGRAPH SHOOTER Ot 585.9 CHRONIC KIDNEY DISEASE, UNSPECIFIED 12/05/2017 JCARLOSMA MERLENE L SEISMOGRAPH SHOOTER Ot 786.09 RESPIRATORY ABNORM NEC 12/05/2017 JCARLOSMA MERLENE L SEISMOGRAPH SHOOTER Ot 786.2 COUGH 12/05/2017 LUI BURGOS, SONDRA Myrick Ot E66.01 MORBID (SEVERE) OBESITY DUE TO EXCESS CA 12/05/2017 LUI BURGOS, SONDRA Myrick Ot E78.00 PURE HYPERCHOLESTEROLEMIA, UNSPECIFIED 12/05/2017 SONDRA POE MD Ot F32.9 MAJOR DEPRESSIVE DISORDER, SINGLE EPISOD 12/05/2017 SONDRA POE MD Ot G47.9 SLEEP DISORDER, UNSPECIFIED 12/05/2017 SONDRA POE MD Ot I12.0 HYP CHR KIDNEY DISEASE W STAGE 5 CHR KID 12/05/2017 SONDRA POE MD Ot I25.10 ATHSCL HEART DISEASE OF [place] CORONARY 12/05/2017 SONDRA POE MD Ot I48.91 UNSPECIFIED ATRIAL FIBRILLATION 12/05/2017 SONDRA POE MD Ot J44.1 CHRONIC OBSTRUCTIVE PULMONARY DISEASE W 12/05/2017 SONDRA POE MD Ot K21.9 GASTRO-ESOPHAGEAL REFLUX DISEASE WITHOUT 12/05/2017 SONDRA POE MD, Ot M10.9 GOUT, UNSPECIFIED 12/05/2017 SONDRA POE MD, Ot M54.6 PAIN IN THORACIC SPINE 12/05/2017 SONDRA POE MD, Ot N18.6 END STAGE RENAL DISEASE 12/05/2017 SONDRA POE MD, Ot R07.89 OTHER CHEST PAIN 12/05/2017 SONDRA POE MD, Ot Z68.43 BODY MASS INDEX (BMI) 50-59.9 , ADULT 12/05/2017 SONDRA POE MD, Ot Z79.01 AUTOMATIC QUILLING MACHINE OPERATOR (CURRENT) USE OF ANTICOAGULANT 12/05/2017 SONDRA POE MD, Ot Z79.4 AUTOMATIC QUILLING MACHINE OPERATOR (CURRENT) USE OF INSULIN 12/05/2017 SONDRA POE MD, Ot Z79.82 AUTOMATIC QUILLING MACHINE OPERATOR (CURRENT) USE OF ASPIRIN 12/05/2017 SONDRA POE MD, Ot Z82.49 FAMILY HX OF ISCHEM HEART DIS AND OTH DI 12/05/2017 SONDRA POE MD, Ot Z86.73 PRSNL HX OF TIA (TIA), AND CEREB INFRC W 12/05/2017 SONDRA POE MD, Ot Z87.19 PERSONAL HISTORY OF OTHER DISEASES OF TH 12/05/2017 SONDRA POE MD, Ot Z87.442 PERSONAL HISTORY OF URINARY CALCULI 12/05/2017 SONDRA POE MD, Ot Z88.6 ALLERGY STATUS TO ANALGESIC AGENT STATUS 12/05/2017 SONDRA POE MD, Ot Z88.8 ALLERGY STATUS TO OT DRUG/MEDS/BIOL SUB 12/05/2017 SONDRA POE MD, Ot Z91.041 RADIOGRAPHIC DYE ALLERGY STATUS 12/05/2017 SONDRA POE MD, Ot Z98.890 OTHER SPECIFIED POSTPROCEDURAL STATES 12/05/2017 SONDRA POE MD, Ot Z99.2 DEPENDENCE ON RENAL DIALYSIS 12/05/2017 SONDRA POE MD, Ot Z99.81 DEPENDENCE ON SUPPLEMENTAL OXYGEN 12/08/2017 SONDRA POE MD, Ot E66.01 MORBID (SEVERE) OBESITY DUE TO EXCESS CA 12/08/2017 SONDRA POE MD Ot E78.00 PURE HYPERCHOLESTEROLEMIA, UNSPECIFIED 12/08/2017 SONDRA POE MD, Ot F32.9 MAJOR DEPRESSIVE DISORDER, SINGLE EPISOD 12/08/2017 SONDRA POE MD, Ot G47.9 SLEEP DISORDER, UNSPECIFIED 12/08/2017 SONDRA POE MD Ot I12.0 HYP CHR KIDNEY DISEASE W STAGE 5 CHR KID 12/08/2017 SONDRA POE MD, Ot I25.10 ATHSCL HEART DISEASE OF [place] CORONARY 12/08/2017 SONDRA POE MD, Ot I48.91 UNSPECIFIED ATRIAL FIBRILLATION 12/08/2017 SONDRA POE MD, Ot J44.1 CHRONIC OBSTRUCTIVE PULMONARY DISEASE W 12/08/2017 SONDRA POE MD, Ot K21.9 GASTRO-ESOPHAGEAL REFLUX DISEASE WITHOUT 12/08/2017 SONDRA POE MD, Ot M10.9 GOUT, UNSPECIFIED 12/08/2017 SONDRA POE MD Ot M54.6 PAIN IN THORACIC SPINE 12/08/2017 SONDRA POE MD, Ot N18.6 END STAGE RENAL DISEASE 12/08/2017 SONDRA POE MD Ot R07.89 OTHER CHEST PAIN 12/08/2017 SONDRA POE MD Ot Z79.01 CUSTODIAL (CURRENT) USE OF ANTICOAGULANT 12/08/2017 SONDRA POE MD Ot Z79.4 CUSTODIAL (CURRENT) USE OF INSULIN 12/08/2017 SONDRA POE MD, Ot Z79.82 AUTOMATIC QUILLING MACHINE OPERATOR (CURRENT) USE OF ASPIRIN 12/08/2017 SONDRA POE MD, Ot Z82.49 FAMILY HX OF [place]HE[place] HEART DIS AND OTH DI 12/08/2017 SONDRA POE MD, Ot Z86.73 PRSNL HX OF TIA (TIA), AND CEREB INFRC W 12/08/2017 SONDRA POE MD, Ot Z87.19 PERSONAL HISTORY OF OTHER DISEASES OF TH 12/08/2017 SONDRA POE MD, Ot Z87.442 PERSONAL HISTORY OF URINARY CALCULI 12/08/2017 SONDRA POE MD, Ot Z88.6 ALLERGY STATUS TO ANALGESIC AGENT STATUS 12/08/2017 SONDRA POE MD, Ot Z88.8 ALLERGY STATUS TO OTH DRUG/MEDS/BIOL SUB 12/08/2017 SONDRA POE MD, Ot Z91.041 RADIOGRAPHIC DYE ALLERGY STATUS 12/08/2017 SONDRA POE MD, Ot Z98.890 OTHER SPECIFIED POSTPROCEDURAL STATES 12/08/2017 SONDRA POE MD, Ot Z99.2 DEPENDENCE ON RENAL DIALYSIS 12/08/2017 SONDRA POE MD, Ot Z99.81 DEPENDENCE ON SUPPLEMENTAL OXYGEN 12/08/2017 SONDRA POE MD, Ot E66.01 MORBID (SEVERE) OBESITY DUE TO EXCESS CA 12/08/2017 SONDRA POE MD, Ot E78.00 PURE HYPERCHOLESTEROLEMIA, UNSPECIFIED 12/08/2017 SONDRA POE MD, Ot F32.9 MAJOR DEPRESSIVE DISORDER, SINGLE EPISOD 12/08/2017 SONDRA POE MD, Ot G47.9 SLEEP DISORDER, UNSPECIFIED 12/08/2017 SONDRA POE MD, Ot I12.0 HYP CHR KIDNEY DISEASE W STAGE 5 CHR KID 12/08/2017 SONDRA POE MD, Ot I25.10 ATHSCL HEART DISEASE OF [place] CORONARY 12/08/2017 SONDRA POE MD, Ot I48.91 UNSPECIFIED ATRIAL FIBRILLATION 12/08/2017 SONDRA POE MD, Ot J44.1 CHRONIC OBSTRUCTIVE PULMONARY DISEASE W 12/08/2017 SONDRA POE MD, Ot K21.9 GASTRO-ESOPHAGEAL REFLUX DISEASE WITHOUT 12/08/2017 SONDRA POE MD, Ot M10.9 GOUT, UNSPECIFIED 12/08/2017 SONDRA POE MD, Ot M54.6 PAIN IN THORACIC SPINE 12/08/2017 SONDRA POE MD, Ot N18.6 END STAGE RENAL DISEASE 12/08/2017 SONDRA POE MD, Ot R07.89 OTHER CHEST PAIN 12/08/2017 SONDRA POE MD, Ot Z68.43 BODY MASS INDEX (BMI) 50-59.9 , ADULT 12/08/2017 SONDRA POE MD, Ot Z79.01 AUTOMATIC QUILLING MACHINE OPERATOR (CURRENT) USE OF ANTICOAGULANT 12/08/2017 SONDRA POE MD, Ot Z79.4 AUTOMATIC QUILLING MACHINE OPERATOR (CURRENT) USE OF INSULIN 12/08/2017 SONDRA POE MD, Ot Z79.82 CUSTODIAL (CURRENT) USE OF ASPIRIN 12/08/2017 SONDRA POE MD, Ot Z82.49 FAMILY HX OF ISCHEM HEART DIS AND OTH DI 12/08/2017 SONDRA POE MD, Ot Z86.73 PRSNL HX OF TIA (TIA), AND CEREB INFRC W 12/08/2017 SONDRA POE MD, Ot Z87.19 PERSONAL HISTORY OF OTHER DISEASES OF TH 12/08/2017 SONDRA POE MD, Ot Z87.442 PERSONAL HISTORY OF URINARY CALCULI 12/08/2017 SONDRA POE MD, Ot Z88.6 ALLERGY STATUS TO ANALGESIC AGENT STATUS 12/08/2017 SONDRA POE MD, Ot Z88.8 ALLERGY STATUS TO OT DRUG/MEDS/BIOL SUB 12/08/2017 SONDRA POE MD, Ot Z91.041 RADIOGRAPHIC DYE ALLERGY STATUS 12/08/2017 SONDRA POE MD, Ot Z98.890 OTHER SPECIFIED POSTPROCEDURAL STATES 12/08/2017 SONDRA POE MD, Ot Z99.2 DEPENDENCE ON RENAL DIALYSIS 12/08/2017 SONDRA POE MD, Ot Z99.81 DEPENDENCE ON SUPPLEMENTAL OXYGEN 05/22/2018 PEPITO FREEMAN MD Ot L08.9 LOCAL INFECTION OF THE SKIN AND SUBCUTAN 05/22/2018 PEPITO FREEMAN MD Ot Z86.14 PERSONAL HISTORY OF METHICILLIN RESIS ST 06/01/2018 MERLENE BOUCHER SEISMOGRAPH SHOOTER Ot 786.50 CHEST PAIN NOS 06/01/2018 BAIMA, MERLENE L SEISMOGRAPH SHOOTER Ot 786.50 CHEST PAIN NOS 06/01/2018 BAIJEFFRY, MERLENE L SEISMOGRAPH SHOOTER Ot 585.9 CHRONIC KIDNEY DISEASE, UNSPECIFIED 06/01/2018 BAIMA, MERLENE L SEISMOGRAPH SHOOTER Ot 786.09 RESPIRATORY ABNORM NEC 06/01/2018 BAIMA, MERLENE L SEISMOGRAPH SHOOTER Ot 786.2 COUGH 06/01/2018 BAIMA, MERLENE L SEISMOGRAPH SHOOTER Ot 403.90 HYPTNSV CHR KID DIS, UNSPEC, W CHR KD ST 06/01/2018 BAIMA, MERLENE L SEISMOGRAPH SHOOTER Ot 414.00 CORON ATHEROSCLER NOS TYPE VESSEL, NATIV 06/01/2018 BAIMA, MERLENE L SEISMOGRAPH SHOOTER Ot 585.9 CHRONIC KIDNEY DISEASE, UNSPECIFIED 06/01/2018 BAIMA, MERLENE L SEISMOGRAPH SHOOTER Ot 786.09 RESPIRATORY ABNORM NEC 06/01/2018 BAIMA, MERLENE L SEISMOGRAPH SHOOTER Ot 786.2 COUGH 06/01/2018 PEPITO FREEMAN MD Ot L08.9 LOCAL INFECTION OF THE SKIN AND SUBCUTAN 06/01/2018 PEPITO FREEMAN MD, Ot Z86.14 PERSONAL HISTORY OF METHICILLIN RESIS ST 06/06/2018 JOSEP KNAPP MD, Ot L98.492 NON-PRS CHRONIC ULCER OF SKIN OF SITES W 06/06/2018 JOSEP KNAPP MD, Ot E11.622 TYPE 2 DIABETES MELLITUS WITH OTHER SKIN 06/06/2018 JOSEP KNAPP MD, Ot E66.01 MORBID (SEVERE) OBESITY DUE TO EXCESS CA 06/06/2018 JOSEP KNAPP MD Ot L02.211 CUTANEOUS ABSCESS OF ABDOMINAL WALL 06/06/2018 JOSEP KNAPP MD, Ot L98.492 NON-PRS CHRONIC ULCER OF SKIN OF SITES W 06/06/2018 JOSEP KNAPP MD, Ot N18.6 END STAGE RENAL DISEASE 06/06/2018 JOSEP KNAPP MD, Ot T81.31XA DISRUPTION OF EXTERNAL OPERATION (SURGIC 06/06/2018 JOSEP KNAPP MD, Ot Z68.43 BODY MASS INDEX (BMI) 50-59.9, ADULT 06/06/2018 PEPITO FREEMAN MD, Ot L08.9 LOCAL INFECTION OF THE SKIN AND SUBCUTAN 06/06/2018 PEPITO FREEMAN MD, Ot Z86.14 PERSONAL HISTORY OF METHICILLIN RESIS ST 06/12/2018 JOSEP KNAPP MD, Ot E11.622 TYPE 2 DIABETES MELLITUS WITH OTHER SKIN 06/12/2018 JOSEP KNAPP MD, Ot E66.01 MORBID (SEVERE) OBESITY DUE TO EXCESS CA 06/12/2018 JOSEP KNAPP MD, Ot L02.211 CUTANEOUS ABSCESS OF ABDOMINAL WALL 06/12/2018 JOSEP KNAPP MD, Ot L98.492 NON-PRS CHRONIC ULCER OF SKIN OF SITES W 06/12/2018 JOSEP KNAPP MD, Ot N18.6 END STAGE RENAL DISEASE 06/12/2018 JOSEP KNAPP MD, Ot T81.31XA DISRUPTION OF EXTERNAL OPERATION (SURGIC 06/12/2018 JOSEP KNAPP MD, Ot Z68.43 BODY MASS INDEX (BMI) 50-59.9, ADULT 06/15/2018 PEPITO FREEMAN MD Ot L08.9 LOCAL INFECTION OF THE SKIN AND SUBCUTAN 06/15/2018 PEPITO FREEMAN MD Ot Z86.14 PERSONAL HISTORY OF METHICILLIN RESIS ST 06/19/2018 RD BONILLA APRN Ot E11.622 TYPE 2 DIABETES MELLITUS WITH OTHER SKIN 06/19/2018 RD BONILLA APRN Ot E66.01 MORBID (SEVERE) OBESITY DUE TO EXCESS CA 06/19/2018 RD BONILLA APRN Ot L02.211 CUTANEOUS ABSCESS OF ABDOMINAL WALL 06/19/2018 RD BONILLA APRN Ot L98.492 NON-PRS CHRONIC ULCER OF SKIN OF SITES W 06/19/2018 RD BONILLA APRN Ot N18.6 END STAGE RENAL DISEASE 06/19/2018 RD BONILLA APRN Ot T81.31XA DISRUPTION OF EXTERNAL OPERATION (SURGIC 06/25/2018 JOSEP KNAPP MD, Ot E11.622 TYPE 2 DIABETES MELLITUS WITH OTHER SKIN 06/25/2018 JOSEP KNAPP MD, Ot E66.01 MORBID (SEVERE) OBESITY DUE TO EXCESS CA 06/25/2018 JOSEP KNAPP MD, Ot L02.211 CUTANEOUS ABSCESS OF ABDOMINAL WALL 06/25/2018 JOSEP KNAPP MD, Ot L98.492 NON-PRS CHRONIC ULCER OF SKIN OF SITES W 06/25/2018 JOSEP KNAPP MD, Ot N18.6 END STAGE RENAL DISEASE 06/25/2018 JOSEP KNAPP MD, Ot T81.31XA DISRUPTION OF EXTERNAL OPERATION (SURGIC 06/25/2018 JOSEP KNAPP MD, Ot Z68.43 BODY MASS INDEX (BMI) 50-59.9, ADULT 06/25/2018 JOSEP KNAPP MD, Ot E11.622 TYPE 2 DIABETES MELLITUS WITH OTHER SKIN 06/25/2018 JOSEP KNAPP MD, Ot E66.01 MORBID (SEVERE) OBESITY DUE TO EXCESS CA 06/25/2018 JOSEP KNAPP MD, Ot L02.211 CUTANEOUS ABSCESS OF ABDOMINAL WALL 06/25/2018 JOSEP KNAPP MD, Ot L98.492 NON-PRS CHRONIC ULCER OF SKIN OF SITES W 06/25/2018 JOSEP KNAPP MD, Ot N18.6 END STAGE RENAL DISEASE 06/25/2018 JOSEP KNAPP MD, Ot T81.31XA DISRUPTION OF EXTERNAL OPERATION (SURGIC 07/03/2018 JOSEP KNAPP MD, Ot E11.622 TYPE 2 DIABETES MELLITUS WITH OTHER SKIN 07/03/2018 JOSEP KNAPP MD, Ot E66.01 MORBID (SEVERE) OBESITY DUE TO EXCESS CA 07/03/2018 JOSEP KNAPP MD, Ot L02.211 CUTANEOUS ABSCESS OF ABDOMINAL WALL 07/03/2018 JOSEP KNAPP MD, Ot L98.492 NON-PRS CHRONIC ULCER OF SKIN OF SITES W 07/03/2018 JOSEP KNAPP MD, Ot N18.6 END STAGE RENAL DISEASE 07/03/2018 JOSEP KNAPP MD, Ot T81.31XA DISRUPTION OF EXTERNAL OPERATION (SURGIC 07/03/2018 JOSEP KNAPP MD, Ot Z68.43 BODY MASS INDEX (BMI) 50-59.9, ADULT 07/03/2018 JOSEP KNAPP MD, Ot E11.622 TYPE 2 DIABETES MELLITUS WITH OTHER SKIN 07/03/2018 JOSEP KNAPP MD, Ot E66.01 MORBID (SEVERE) OBESITY DUE TO EXCESS CA 07/03/2018 JOSEP KNAPP MD, Ot L02.211 CUTANEOUS ABSCESS OF ABDOMINAL WALL 07/03/2018 JOSEP KNAPP MD, Ot L98.492 NON-PRS CHRONIC ULCER OF SKIN OF SITES W 07/03/2018 JOSEP KNAPP MD, Ot N18.6 END STAGE RENAL DISEASE 07/03/2018 JOSEP KNAPP MD, Ot T81.31XA DISRUPTION OF EXTERNAL OPERATION (SURGIC 07/03/2018 JOSEP KNAPP MD, Ot E11.622 TYPE 2 DIABETES MELLITUS WITH OTHER SKIN 07/03/2018 JOSEP KNAPP MD, Ot E66.01 MORBID (SEVERE) OBESITY DUE TO EXCESS CA 07/03/2018 JOSEP KNAPP MD, Ot L02.211 CUTANEOUS ABSCESS OF ABDOMINAL WALL 07/03/2018 JOSEP KNAPP MD, Ot L98.492 NON-PRS CHRONIC ULCER OF SKIN OF SITES W 07/03/2018 JOSEP KNAPP MD, Ot N18.6 END STAGE RENAL DISEASE 07/03/2018 JOSEP KNAPP MD, Ot T81.31XA DISRUPTION OF EXTERNAL OPERATION (SURGIC 07/04/2018 JOSEP KNAPP MD, Ot E11.622 TYPE 2 DIABETES MELLITUS WITH OTHER SKIN 07/04/2018 JOSEP KNAPP MD, Ot E66.01 MORBID (SEVERE) OBESITY DUE TO EXCESS CA 07/04/2018 JOSEP KNAPP MD, Ot L02.211 CUTANEOUS ABSCESS OF ABDOMINAL WALL 07/04/2018 JOSEP KNAPP MD, Ot L98.492 NON-PRS CHRONIC ULCER OF SKIN OF SITES W 07/04/2018 JOSEP KNAPP MD, Ot N18.6 END STAGE RENAL DISEASE 07/04/2018 JOSEP KNAPP MD, Ot T81.31XA DISRUPTION OF EXTERNAL OPERATION (SURGIC 07/04/2018 JOSEP KNAPP MD, Ot Z68.43 BODY MASS INDEX (BMI) 50-59.9, ADULT 07/06/2018 AUGUSTIN GUTIERREZ MD, Ot E11.622 TYPE 2 DIABETES MELLITUS WITH OTHER SKIN 07/06/2018 AUGUSTIN GUTIERREZ MD, Ot E66.01 MORBID (SEVERE) OBESITY DUE TO EXCESS CA 07/06/2018 AUGUSTIN GUTIERREZ MD, Ot L98.492 NON-PRS CHRONIC ULCER OF SKIN OF SITES W 07/06/2018 AUGUSTIN GUTIERREZ MD, Ot N18.6 END STAGE RENAL DISEASE 07/06/2018 AUGUSTIN GUTIERREZ MD, Ot T81.31XA DISRUPTION OF EXTERNAL OPERATION (SURGIC 07/09/2018 RD BONILLA APRN Ot E11.622 TYPE 2 DIABETES MELLITUS WITH OTHER SKIN 07/09/2018 RD BONILLA APRN Ot E66.01 MORBID (SEVERE) OBESITY DUE TO EXCESS CA 07/09/2018 RD BONILLA APRN Ot L02.211 CUTANEOUS ABSCESS OF ABDOMINAL WALL 07/09/2018 RD BONILLA APRN Ot L98.492 NON-PRS CHRONIC ULCER OF SKIN OF SITES W 07/09/2018 RD BONILLA APRN Ot N18.6 END STAGE RENAL DISEASE 07/09/2018 RD BONILLA SCHOOL COUNSELOR Ot T81.31XA DISRUPTION OF EXTERNAL OPERATION (SURGIC 07/10/2018 JOSEP KNAPP MD, Ot E11.622 TYPE 2 DIABETES MELLITUS WITH OTHER SKIN 07/10/2018 JOSEP KNAPP MD, Ot E66.01 MORBID (SEVERE) OBESITY DUE TO EXCESS CA 07/10/2018 JOSEP KNAPP MD, Ot L02.211 CUTANEOUS ABSCESS OF ABDOMINAL WALL 07/10/2018 JOSEP KNAPP MD, Ot L98.492 NON-PRS CHRONIC ULCER OF SKIN OF SITES W 07/10/2018 JOSEP KNAPP MD, Ot N18.6 END STAGE RENAL DISEASE 07/10/2018 JOSEP KNAPP MD, Ot T81.31XA DISRUPTION OF EXTERNAL OPERATION (SURGIC 07/10/2018 JOSEP KNAPP MD, Ot Z68.43 BODY MASS INDEX (BMI) 50-59.9, ADULT 07/11/2018 JCARLOSMA, MERLENE L SEISMOGRAPH SHOOTER Ot 786.50 CHEST PAIN NOS 07/11/2018 BAIMA, MERLENE L SEISMOGRAPH SHOOTER Ot 786.50 CHEST PAIN NOS 07/11/2018 BAIMA, MERLENE L SEISMOGRAPH SHOOTER Ot 585.9 CHRONIC KIDNEY DISEASE, UNSPECIFIED 07/11/2018 BAIMA, MERLENE L SEISMOGRAPH SHOOTER Ot 786.09 RESPIRATORY ABNORM NEC 07/11/2018 BAIMA, MERLENE L SEISMOGRAPH SHOOTER Ot 786.2 COUGH 07/11/2018 BAIMA, MERLENE L SEISMOGRAPH SHOOTER Ot 403.90 HYPTNSV CHR KID DIS, UNSPEC, W CHR KD ST 07/11/2018 JCARLOSMA, MERLENE L SEISMOGRAPH SHOOTER Ot 414.00 CORON ATHEROSCLER NOS TYPE VESSEL, NATIV 07/11/2018 JCARLOSMA, MERLENE L SEISMOGRAPH SHOOTER Ot 585.9 CHRONIC KIDNEY DISEASE, UNSPECIFIED 07/11/2018 BAIMA, MERLENE L SEISMOGRAPH SHOOTER Ot 786.09 RESPIRATORY ABNORM NEC 07/11/2018 SANDER, MERLENE L SEISMOGRAPH SHOOTER Ot 786.2 COUGH 07/11/2018 PEPITO FREEMAN MD Ot L08.9 LOCAL INFECTION OF THE SKIN AND SUBCUTAN 07/11/2018 PEPITO FREEMAN MD Ot Z86.14 PERSONAL HISTORY OF METHICILLIN RESIS ST 07/11/2018 JOSEP KNAPP MD, Ot E11.622 TYPE 2 DIABETES MELLITUS WITH OTHER SKIN 07/11/2018 JOSEP KNAPP MD, Ot E66.01 MORBID (SEVERE) OBESITY DUE TO EXCESS CA 07/11/2018 JOSEP KNAPP MD Ot L02.211 CUTANEOUS ABSCESS OF ABDOMINAL WALL 07/11/2018 JOSEP KNAPP MD, Ot L98.492 NON-PRS CHRONIC ULCER OF SKIN OF SITES W 07/11/2018 JOSEP KNAPP MD, Ot N18.6 END STAGE RENAL DISEASE 07/11/2018 JOSEP KNAPP MD, Ot T81.31XA DISRUPTION OF EXTERNAL OPERATION (SURGIC 07/11/2018 JOSEP KNAPP MD, Ot Z68.43 BODY MASS INDEX (BMI) 50-59.9, ADULT 07/11/2018 JOSEP KNAPP MD, Ot E11.622 TYPE 2 DIABETES MELLITUS WITH OTHER SKIN 07/11/2018 JOSEP KNAPP MD, Ot E66.01 MORBID (SEVERE) OBESITY DUE TO EXCESS CA 07/11/2018 JOSEP KNAPP MD, Ot L02.211 CUTANEOUS ABSCESS OF ABDOMINAL WALL 07/11/2018 JOSEP KNAPP MD, Ot L98.492 NON-PRS CHRONIC ULCER OF SKIN OF SITES W 07/11/2018 JOSEP KNAPP MD, Ot N18.6 END STAGE RENAL DISEASE 07/11/2018 JOSEP KNAPP MD, Ot T81.31XA DISRUPTION OF EXTERNAL OPERATION (SURGIC 07/11/2018 JOSEP KNAPP MD, Ot Z68.43 BODY MASS INDEX (BMI) 50-59.9, ADULT 07/11/2018 RD BONILLA APRN Ot E11.622 TYPE 2 DIABETES MELLITUS WITH OTHER SKIN 07/11/2018 RD BONILLA APRN Ot E66.01 MORBID (SEVERE) OBESITY DUE TO EXCESS CA 07/11/2018 RD BONILAL SCHOOL COUNSELOR Ot L02.211 CUTANEOUS ABSCESS OF ABDOMINAL WALL 07/11/2018 RD BONILLA SCHOOL COUNSELOR Ot L98.492 NON-PRS CHRONIC ULCER OF SKIN OF SITES W 07/11/2018 RD BONILLA APRN Ot N18.6 END STAGE RENAL DISEASE 07/11/2018 RD BONILLA APRN Ot T81.31XA DISRUPTION OF EXTERNAL OPERATION (SURGIC 07/11/2018 JOSEP KNAPP MD, Ot E11.622 TYPE 2 DIABETES MELLITUS WITH OTHER SKIN 07/11/2018 JOSEP KNAPP MD, Ot E66.01 MORBID (SEVERE) OBESITY DUE TO EXCESS CA 07/11/2018 JOSEP KNAPP MD, Ot L02.211 CUTANEOUS ABSCESS OF ABDOMINAL WALL 07/11/2018 JOSEP KNAPP MD, Ot L98.492 NON-PRS CHRONIC ULCER OF SKIN OF SITES W 07/11/2018 JOSEP KNAPP MD, Ot N18.6 END STAGE RENAL DISEASE 07/11/2018 JOSEP KNAPP MD, Ot T81.31XA DISRUPTION OF EXTERNAL OPERATION (SURGIC 07/11/2018 JOSEP KNAPP MD, Ot E11.622 TYPE 2 DIABETES MELLITUS WITH OTHER SKIN 07/11/2018 JOSEP KNAPP MD, Ot E66.01 MORBID (SEVERE) OBESITY DUE TO EXCESS CA 07/11/2018 JOSEP KNAPP MD, Ot L02.211 CUTANEOUS ABSCESS OF ABDOMINAL WALL 07/11/2018 JOSEP KNAPP MD, Ot L98.492 NON-PRS CHRONIC ULCER OF SKIN OF SITES W 07/11/2018 JOSEP KNAPP MD, Ot N18.6 END STAGE RENAL DISEASE 07/11/2018 JOSEP KNAPP MD, Ot T81.31XA DISRUPTION OF EXTERNAL OPERATION (SURGIC 07/11/2018 AUGUSTIN GUTIERREZ MD, Ot E11.622 TYPE 2 DIABETES MELLITUS WITH OTHER SKIN 07/11/2018 AUGUSTIN GUTIERREZ MD, Ot E66.01 MORBID (SEVERE) OBESITY DUE TO EXCESS CA 07/11/2018 AUGUSTIN GUTIERREZ MD, Ot L98.492 NON-PRS CHRONIC ULCER OF SKIN OF SITES W 07/11/2018 AUGUSTIN GUTIERREZ MD, Ot N18.6 END STAGE RENAL DISEASE 07/11/2018 AUGUSTIN GUTIERREZ MD, Ot T81.31XA DISRUPTION OF EXTERNAL OPERATION (SURGIC Procedures There is no data. Results Test [...] culture NG NRG Bacterial blood culture - 02/09/18 19:21 QUANTITY OF GROWTH . NRG Bacterial [...] calculation of estimated glomerular filtration rate 13 NR Serum or plasma glucose measurement (mass/volume) 195 [...] 09:17 Bacteria identification in wound by culture [id number] NRG FREE TEXT EXTERNAL SENSITIVITY REPORTED 11/20/17 [...] - 11/18/17 09:55 Bacterial blood culture NG NR Serum or plasma lactate measurement (moles/volume) - 11/18/17 11:28 Serum or plasma lactate measurement (moles/volume) 1.54 mmol/L 0.50-2.00 Complete blood count (CBC) with automated white blood cell (WBC) differential - 12/05/17 12:35 Blood leukocytes automated count (number/volume) 13.5 10*3/uL 4.3-11.0 Blood erythrocytes automated count (number/volume) 4.13 10*6/uL 4.35-5.85 Venous blood hemoglobin measurement (mass/volume) 12.7 g/dL 11.5-16.0 Blood hematocrit (volume fraction) 38 % 35-52 Automated erythrocyte mean corpuscular volume 92 [foz_us] 80-99 Automated erythrocyte mean corpuscular hemoglobin (mass per erythrocyte) 31 pg 25-34 Automated erythrocyte mean corpuscular hemoglobin concentration measurement ( mass/volume) 33 g/dL 32-36 Automated erythrocyte distribution width ratio 17.6 % 10.0-14.5 Automated blood platelet count (count/volume) 157 10*3/uL 130-400 Automated blood platelet mean volume measurement 10.7 [foz_us] 7.4-10.4 Automated blood neutrophils/100 leukocytes 63 % 42-75 Automated blood lymphocytes/100 leukocytes 25 % 12-44 Blood monocytes/100 leukocytes 8 % 0-12 Automated blood eosinophils/100 leukocytes 4 % 0-10 Automated blood basophils/100 leukocytes 1 % 0-10 Blood neutrophils automated count (number/volume) 8.5 10*3 1.8-7.8 Blood lymphocytes automated count (number/volume) 3.4 10*3 1.0-4.0 Blood monocytes automated count (number/volume) 1.0 10*3 0.0-1.0 Automated eosinophil count 0.5 10*3/uL 0.0-0.3 Automated blood basophil count (count/volume) 0.1 10*3/uL 0.0-0.1 PT panel in platelet poor plasma by coagulation assay - 12/05/17 12:35 Prothrombin time (PT) in platelet poor plasma by coagulation assay 13.7 s 12.2-14.7 INR in platelet poor plasma or blood by coagulation assay 1.0 0.8-1.4 Activated partial thromboplastin time (aPTT) in platelet poor plasma bycoagulation assay - 12/05/17 12:35 Activated partial thromboplastin time (aPTT) in platelet poor plasma bycoagulation assay 28 s 24-35 Serum or plasma C reactive protein measurement (mass/volume) - 12/05/17 12:35 Serum or plasma C reactive protein measurement (mass/volume) 0.49 mg /dL 0.00-0.50 Comprehensive metabolic panel - 12/05/17 12:35 Serum or plasma sodium measurement (moles/volume) 136 mmol/L 135-145 Serum or plasma potassium measurement (moles/volume) 3.1 mmol/L 3.6-5.0 Serum or plasma chloride measurement (moles/volume) 94 mmol/L 98-107 Carbon dioxide 31 mmol/L 21-32 Serum or plasma anion gap determination (moles/volume) 11 mmol/L 5-14 Serum or plasma urea nitrogen measurement (mass/volume) 14 mg/dL 7-18 Serum or plasma creatinine measurement (mass/volume) 1.92 mg/dL 0.60-1.30 Serum or plasma urea nitrogen/creatinine mass ratio 7 NRG Serum or plasma creatinine measurement with calculation of estimated glomerular filtration rate 26 NRG Serum or plasma glucose measurement (mass/volume) 174 mg/dL 70-105 Serum or plasma calcium measurement (mass/volume) 8.6 mg/dL 8.5-10.1 Serum or plasma total bilirubin measurement (mass/volume) 1.1 mg/dL 0.1-1.0 Serum or plasma alkaline phosphatase measurement (enzymatic activity/volume) 68 U/L 40-136 Serum or plasma aspartate aminotransferase measurement (enzymatic activity/ volume) 24 U/L 5-34 Serum or plasma alanine aminotransferase measurement (enzymatic activity/volume ) 18 U/L 0-55 Serum or plasma protein measurement (mass/volume) 7.2 g/dL 6.4-8.2 Serum or plasma albumin measurement (mass/volume) 3.8 g/dL 3.2-4.5 Magnesium - 12/05/17 12:35 Magnesium 1.7 mg/dL 1.8-2.4 Serum or plasma troponin i.cardiac measurement (mass/volume) - 12/05/17 12:35 Serum or plasma troponin i.cardiac measurement (mass/volume) < ng/ mL <0.30 Myoglobin, serum - 12/05/17 12:35 Myoglobin, serum 183.1 ng/mL 10.0-92.0 Vancomycin trough - 05/17/18 19:45 Vancomycin trough 13.7 ug/mL 10.0-20.0 Bacteria identification in isolate by anaerobe culture - 06/29/18 10:58 Bacteria identification in isolate by anaerobe culture NOANA NRG Gram stain microscopy - 06/29/18 10:58 Gram stain microscopy GR[facility] ST[facility] NR Bacteria identification in wound by culture - 06/29/18 10:58 Bacteria identification in wound by culture [id number] NR FREE TEXT EXTERNAL SUSCEPTIBILITY REPORTED 07-01-18, 1105. NRG QUANTITY OF GROWTH FEW NRG FREE TEXT ENTRY 2 RESISTANT ORGANISM/CONTACT PRECAUTIONS NRG [facility] Sensitivity Panel - 06/29/18 10:58 Oxacillin susceptibility test by minimum inhibitory concentration R NRG Clindamycin susceptibility test by minimum inhibitory concentration <= NRG Erythromycin susceptibility test by minimum inhibitory concentration > NRG Trimethoprim/sulfamethoxazole susceptibility test by minimum inhibitoryconcentration S NRG Vancomycin susceptibility test by minimum inhibitory concentration 1 NRG Levofloxacin susceptibility test by minimum inhibitory concentration 4 NRG Rifampin susceptibility test by minimum inhibitory concentration <= NRG Cefazolin susceptibility test by minimum inhibitory concentration > NRG Linezolid susceptibility test by minimum inhibitory concentration < = NRG Penicillin G susceptibility test by minimum inhibitory concentration > NRG Minocycline susc LATRELL <= NRG Encounters ACCT No. Visit Date/Time Discharge Status Pt. Type Provider Facility Loc./Unit Complaint [id number] 07/04/2018 09:17:00 07/04/2018 23:59:59 CLS Outpatient AUGUSTIN GUTIERREZ MD [facility] [id number] 06/29/2018 09:05:00 06/29/2018 23:59:59 CLS Outpatient JOSEP KNAPP MD [facility] [id number] 06/22/2018 09:04:00 06/22/2018 23:59:59 CLS Outpatient JOSEP KNAPP MD [facility] [id number] 06/15/2018 09:37:00 06/15/2018 23:59:[address] BONILLA APRN [facility] [id number] 06/08/2018 10:42:00 06/08/2018 23:59:59 CLS Outpatient JOSEP KNAPP MD [facility] [id number] 06/01/2018 10:57:00 06/01/2018 23:59:59 CLS Outpatient JOSEP KNAPP MD [facility] [id number] 05/17/2018 21:04:00 05/17/2018 23:59:59 CLS Outpatient PEPITO FREEMAN MD [facility] LABNPT [id number] 12/05/2017 12:09:00 12/05/2017 16:33:00 DIS Emergency SONDRA POE MD [facility] ER SOA COUGH [id number] 11/18/2017 09:10:00 11/18/2017 12:50:00 DIS Emergency SONDRA POE MD [facility] ER CHEST PAIN [id number] 09/30/2017 19:19:00 10/02/2017 11:20:00 DIS Inpatient AFRICA AMAYA MD [facility] ICU COPD EXACERBATION;POSS CHF;POSSIBLE PNEUMONIA [id number] 05/23/2017 15:24:00 05/23/2017 23:59:59 CLS Preadmit ALEX ALLAN [employer]-C [facility] RAD E88.09 HYPALBUMINEMIA [id number] 02/26/2014 17:28:00 02/28/2014 09:00:00 DIS Inpatient AMEYA MCCOY MD [facility] CSD N/V/D [id number] 07/31/2013 12:33:00 07/31/2013 23:59:59 CLS Outpatient MERLENE BOUCHER [facility] RT HTN,COUGH,DYSPNEA [id number] 07/10/2013 11:36:00 07/10/2013 23:59:59 CLS Outpatient MERLENE BOUCHER [facility] RAD DYSPNEA,COUGH [id number] 07/05/2013 10:13:00 07/05/2013 23:59:59 CLS Outpatient BAIMERLENE TERAN SEISMOGRAPH SHOOTER [facility] LAB CKD [id number] 06/25/2013 07:13:00 06/26/2013 11:25:00 DIS Outpatient MONI BURGOS FACC, SHANNON FACLatrell CCDS [facility] CATH ABN STRESS, ANGINA,SOB,HLP [id number] 06/13/2013 07:38:00 06/13/2013 23:59:59 CLS Outpatient MERLENE BOUCHER [employer]IS[employer]GR[employer] SHOOTER [facility] RAD CP [id number] 05/17/2013 08:46:00 05/17/2013 23:59:59 CLS Outpatient BAIMERLENE TERAN SEIS[employer]GRAPH SHOOTER [facility] CARD CP [id number] 07/11/2018 11:01:00 ACT Outpatient Kaden GOULD MD [facility] CATH RVR [id number] 01/09/2012 21:48:00 Document Registration [id number] 10/14/2010 22:32:00 Document Registration [id number] 01/22/2018 15:40:00 01/22/2018 23:59:59 CLS Outpatient JOSEP GONG APRN [facility] [id number] 05/15/2017 08:20:00 Document Registration
--- NOTE | 2018-07-11 12:34 | Anesthesia-Procedure Note ---
Procedures/Interventions Procedure Start/Stop/Diagnosis Date of Procedure: Jul 11, 2018 Start Time: 12:08 Referring Physician: Dr Ghosh Preprocedural Diagnosis: A-fib Brief History Anesthesia Note ([id number]) Called to bundle tier and labeler for sedation (MAC) for a cardioversion. Brief history obtained from patient and Dr Ghosh and NPO status verified. Midazolam 2 mg IV and Propofol 80 mg IV in divided doses for sedation for the procedure. VSS throughout and spontaneous ventilation verified with EtCO2. Cardioversion times 3 without return to sinus rhythm. Pt tolerated the procedure well. Stop Time: 12:20 Postprocedural Diagnosis: A-fib DIANA/Cardioversion Anesthesia Type: MAC ASA Class: 4 Medications Midazolam 2 mg IV and Propofol 80 mg IV Monitors and Equipment: BP Cuff - Right, Continuous EKG, End Tidal CO2, IV, Pulse Oximeter RICHARD PECK DO Jul 11, 2018 12:34
--- NOTE | 2018-07-11 12:37 | Anesthesia-General Post-Op ---
MAC Patient Condition Mental Status/LOC: Same as Preop Cardiovascular: Satisfactory Nausea/Vomiting: Absent Respiratory: Satisfactory Pain: Controlled Complications: Absent Post Op Complications Complications None Follow Up Care/Instructions Patient Instructions None needed. Anesthesiology Discharge Order Discharge Order Patient is doing well, no complaints, stable vital signs, no apparent adverse anesthesia problems. RICHARD PECK DO Jul 11, 2018 12:37
--- NOTE | 2018-07-11 13:23 | Cardioversion ---
Cardioversion PROCEDURE PHYSICIAN: Alicia Ghosh MD DATE OF PROCEDURE: 07/11/18 DIRECT EXTERNAL ELECTRICAL CARDIOVERSION: Indications: Atrial Fibrillation with rapid ventricular rate Preoperative diagnoses: Atrial Fibrillation with rapid ventricular rate Postoperative diagnosis: Unsuccessful Electrical Cardioversion History: This is a 68-year-old lady with morbid obesity, COPD on oxygen therapy. New onset atrial fibrillation in September 2017 requiring cardioversion which was successful. Patient came back to the office with complaint of tachycardia and was found to have atrial fibrillation with rapid ventricular rate. Anesthesia: By Anesthesia services Complications: None Specimen: None Contrast: 0 Flouroscopy: none Procedure Details: The patient was brought the cardiac cath technologist after informed consent was taken, all the risks and complications were explained including the risk of stroke. Electrical cardioversion was carried out with anesthesia support with propofol. 200 joules of synchronized shock was delivered through external patches x4 however patient continued to remain in atrial fibrillation. Conclusions: 1.unsuccessful Cardioversion. 2.Continue oral anticoagulation and increase metoprolol to 75 mg twice a day. 3.Follow up in office in 2-3 weeks. 4. Sleep study is recommended. Alicia Ghosh MD, RS, CCDS Cardiac Electrophysiology Kaden GHOSH MD Jul 11, 2018 1:23 pm
== END | disposition home or self-care (01) ==
LOC: CATH 11:01
PROVIDERS: ATTEND Internal Medicine Interventional Cardiology
DX: I48.0 Paroxysmal atrial fibrillation (principal); I50.32 Chronic diastolic (congestive) heart failure; N17.9 Acute kidney failure, unspecified; N18.6 End stage renal disease; Z79.899 Other long term (current) drug therapy; Z79.4 Long term (current) use of insulin; E11.9 Type 2 diabetes mellitus without complications; E78.5 Hyperlipidemia, unspecified; I13.2 Hypertensive heart and chronic kidney disease with heart failure and with stage 5 chronic kidney disease, or end stage renal disease; I25.10 Atherosclerotic heart disease of native coronary artery without angina pectoris; J44.9 Chronic obstructive pulmonary disease, unspecified; Z99.81 Dependence on supplemental oxygen; E66.9 Obesity, unspecified; Z68.42 Body mass index [BMI] 45.0-49.9, adult
CPT/HCPCS: 92960; 93005

== ENCOUNTER → 2018-07-18 | Outpatient (CLI) | payer MEDICARE, MEDICAID ==
[~2018-07-18] MED LIST changes: -MIDAZOLAM 2 MG/2 ML (VERSED) VIAL ONE; -NS IV 1000 ML 1,000 ML IV SCH; -NS IV 1000 ML 1,000 ML ONE; -proPOfol 200 MG/20 ML (DIPRIVAN) VIAL IV ONE
== END ==
LOC: WOUNDCARE 09:11
PROVIDERS: ATTEND Orthopaedic Surgery Hand Surgery
DX: T81.31XA Disruption of external operation (surgical) wound, not elsewhere classified, initial encounter (principal); E11.622 Type 2 diabetes mellitus with other skin ulcer; L98.492 Non-pressure chronic ulcer of skin of other sites with fat layer exposed; N18.6 End stage renal disease; E66.01 Morbid (severe) obesity due to excess calories; Z68.43 Body mass index [BMI] 50.0-59.9, adult
CPT/HCPCS: 11042

== ENCOUNTER → 2018-07-25 | Outpatient (CLI) | payer MEDICARE, MEDICAID | LOC: WOUNDCARE 09:20 | PROVIDERS: ATTEND Orthopaedic Surgery Hand Surgery | DX: L98.492 Non-pressure chronic ulcer of skin of other sites with fat layer exposed (principal); T81.31XA Disruption of external operation (surgical) wound, not elsewhere classified, initial encounter; E11.622 Type 2 diabetes mellitus with other skin ulcer; E66.01 Morbid (severe) obesity due to excess calories; N18.6 End stage renal disease | CPT/HCPCS: 11042 ==

== ENCOUNTER → 2018-08-01 | Outpatient (CLI) | payer MEDICARE, MEDICAID | LOC: WOUNDCARE 09:03 | PROVIDERS: ATTEND Orthopaedic Surgery Hand Surgery | DX: T81.31XA Disruption of external operation (surgical) wound, not elsewhere classified, initial encounter (principal); E11.622 Type 2 diabetes mellitus with other skin ulcer; L98.492 Non-pressure chronic ulcer of skin of other sites with fat layer exposed; N18.6 End stage renal disease; E66.01 Morbid (severe) obesity due to excess calories; Z68.43 Body mass index [BMI] 50.0-59.9, adult | CPT/HCPCS: 11042 ==

== ENCOUNTER → 2018-08-08 | Outpatient (CLI) | payer MEDICARE, MEDICAID | LOC: WOUNDCARE 09:13 | PROVIDERS: ATTEND Orthopaedic Surgery Hand Surgery | DX: T81.31XA Disruption of external operation (surgical) wound, not elsewhere classified, initial encounter (principal); E11.622 Type 2 diabetes mellitus with other skin ulcer; L98.492 Non-pressure chronic ulcer of skin of other sites with fat layer exposed; N18.6 End stage renal disease; E66.01 Morbid (severe) obesity due to excess calories; Z68.42 Body mass index [BMI] 45.0-49.9, adult | CPT/HCPCS: 11042 ==

== ENCOUNTER 2018-08-18 21:00 | Outpatient (CLI) | payer MEDICARE, MEDICAID | END 2018-08-19 06:35 | disposition home or self-care (01) | LOC: SLEEP 21:00 | PROVIDERS: ATTEND Internal Medicine Interventional Cardiology | DX: G47.33 Obstructive sleep apnea (adult) (pediatric) (principal); I48.1 Persistent atrial fibrillation | CPT/HCPCS: 95810 ==

== ENCOUNTER → 2018-08-24 | Outpatient (CLI) | payer MEDICARE, MEDICAID | LOC: WOUNDCARE 09:14 | PROVIDERS: ATTEND Surgery | DX: E11.622 Type 2 diabetes mellitus with other skin ulcer (principal); L92.8 Other granulomatous disorders of the skin and subcutaneous tissue; L98.492 Non-pressure chronic ulcer of skin of other sites with fat layer exposed; T81.31XA Disruption of external operation (surgical) wound, not elsewhere classified, initial encounter; E66.01 Morbid (severe) obesity due to excess calories; N18.6 End stage renal disease | CPT/HCPCS: 17250 ==

== ENCOUNTER → 2018-08-31 | Outpatient (CLI) | payer MEDICARE, MEDICAID | LOC: WOUNDCARE 08:14 | PROVIDERS: ATTEND Surgery | DX: T81.31XA Disruption of external operation (surgical) wound, not elsewhere classified, initial encounter (principal); L92.8 Other granulomatous disorders of the skin and subcutaneous tissue; L98.492 Non-pressure chronic ulcer of skin of other sites with fat layer exposed; E11.622 Type 2 diabetes mellitus with other skin ulcer; E66.01 Morbid (severe) obesity due to excess calories; N18.6 End stage renal disease | CPT/HCPCS: 17250 ==

== ENCOUNTER → 2018-09-07 | Outpatient (CLI) | payer MEDICARE, MEDICAID | LOC: WOUNDCARE 10:08 | PROVIDERS: ATTEND Surgery | DX: E11.622 Type 2 diabetes mellitus with other skin ulcer (principal); L98.492 Non-pressure chronic ulcer of skin of other sites with fat layer exposed; T81.31XA Disruption of external operation (surgical) wound, not elsewhere classified, initial encounter; E66.01 Morbid (severe) obesity due to excess calories; N18.6 End stage renal disease | CPT/HCPCS: 99213 ==

== ENCOUNTER 2018-09-18 07:28 | Emergency (ER) | payer MEDICARE, MEDICAID ==
[~2018-09-18] VITALS: Ht 162.6 cm; Wt 95.7 kg
[~2018-09-18 07:28] MED LIST changes: -AMLO10TA6 PO; +AMLO10TA7 PO
--- OUTSIDE RECORDS SUMMARY | 2018-09-18 07:34 | XMS REPORT ---
Author Author VERONICA LARIOS [facility] Address [address] [place] [address] Care Team Providers Care Technical Support Associate Name Role Phone VERONICA LARIOS Unavailable PROBLEMS Type Condition ICD9-CM Code SXU92-JV Code Onset Dates Condition Status SNOMED Code Problem Chronic obstructive pulmonary disease with acute exacerbation J44.1 Active 477403687 Problem Chronic obstructive pulmonary disease, unspecified COPD type J44.9 Active 58816119 Problem Vitamin D deficiency, unspecified E55.9 Active 04877315 Problem History of MRSA infection Z86.14 Active 228176329 Problem Type 2 diabetes mellitus with other diabetic kidney complication E11.29 Active 607210891 Problem Gastric reflux K21.9 Active 495567262 Problem Right knee pain M25.561 Active 59488518 Problem Sprain of right knee, unspecified ligament, initial encounter S83.91XA Active 81542520 Problem Body mass index (BMI) of 40.0-44.9 in adult Z68.41 Active 404825251 Problem Obesity, unspecified E66.9 Active 15704427120791 Problem Paroxysmal atrial fibrillation I48.0 Active 574039205 Problem Chronic congestive heart failure, unspecified heart failure type I50.9 Active 17792356 Problem Chronic renal disease, unspecified stage N18.9 Active 603663015 Problem Chronic kidney disease, stage IV (severe) N18.4 Active 349854454 Problem Essential hypertension I10 Active 51565286 Problem Hyperlipidemia, unspecified E78.5 Active 72174556 Problem Renal osteodystrophy N25.0 Active 00598900 Problem Essential (primary) hypertension I10 Active 62168849 Problem Venous (peripheral) insufficiency I87.2 Active 55541743 Problem Anemia of renal disease D63.1 Active 508473910 Problem Type 2 diabetes mellitus with diabetic nephropathy E11.21 Active 757913695 Problem Abscess L02.91 Active 534112676 Problem Proteinuria R80.9 Active 21458939 Problem Chronic bronchitis, unspecified chronic bronchitis type J42 Active 58930021 ALLERGIES No Information ENCOUNTERS Encounter Location Date Diagnosis [facility] [id number] [id number] Jul, [facility] [address] [address] Jun, [facility] [address] [address] May, BMI 60.0-69.9, adult Z68.44 ; Type 2 diabetes mellitus with other diabetic kidney complication E11.29 and Abscess L02.91 [facility] [id number], [place] [id number] May, [facility] [address] [place] [address] [id number] May, [facility] [id number] [address] May, [facility] [address] [id number] [address] May, [facility] [address] [facility] [id number][place] [id number] May, Abscess L02.91 ; History of MRSA infection Z86.14 and Body mass index (BMI ) 70 or greater, adult Z68.45 [facility] [address] [facility] [id number] [id number] Apr, [address] [id number] Apr, Local infection of the skin and subcutaneous tissue, unspecified L08.9 ; Other injury of unspecified body region, initial encounter T14.8XXA and History of MRSA infection Z86.14 [facility] 120 [facility] [id number] [id number] Mar, Type 2 diabetes mellitus with diabetic nephropathy E11.21 and Gastric reflux K21.9 [facility] [address] [facility] [id number][place] [id number] Mar, Type 2 diabetes mellitus with diabetic nephropathy E11.21 ; Gastric reflux K21.9 and Chronic kidney disease, stage IV (severe) N18.4 [facility] [address] [id number] [id number] Feb, [facility] [address] [place] [address] [id number] Feb, Type 2 diabetes mellitus with other diabetic kidney complication E11.29 [facility] [address] [id number] [id number] Jan, Body mass index (BMI) 70 or greater, adult Z68.45 and Type 2 diabetes mellitus with other diabetic kidney complication E11.29 [facility] [id number], [place] [id number] Nov, Body mass index (BMI) 70 or greater, adult Z68.45 ; Chronic obstructive pulmonary disease, unspecified COPD type J44.9 ; Chronic kidney disease, stage IV (severe) N18.4 and Gastric reflux K21.9 [facility] [address] [place] [address] [id number] Oct, Body mass index (BMI) 70 or greater, adult Z68.45 ; Type 2 diabetes mellitus with other diabetic kidney complication E11.29 ; Chronic obstructive pulmonary disease with acute exacerbation J44.1 and Paroxysmal atrial fibrillation I48.0 [facility] [address] [place] [address] [id number] Oct, [address] [place] [address] [id number] Oct, Type 2 diabetes mellitus with diabetic nephropathy E11.21 ; Chronic renal disease, unspecified stage N18.9 ; Chronic congestive heart failure, unspecified heart failure type I50.9 and Chronic obstructive pulmonary disease with acute exacerbation J44.1 [address] [id number] [id number] Sep, [address] [place] [address] [id number] Sep, [address] [place] [address] [id number] Sep, [facility] [address]00565100[place] [address] 01 Feb, 2018 Type 2 diabetes mellitus with diabetic nephropathy E11.21 [address] [place] [id number] [place] [address] [id number] Aug, Influenza J11.1 and Essential (primary) hypertension I10 [facility] [address] [address] Aug, [address] [id number] Jul, Type 2 diabetes mellitus with diabetic nephropathy E11.21 ; Essential ( primary) hypertension I10 and Chronic obstructive pulmonary disease, unspecified COPD type J44.9 [facility] [address] [id number] Jun, Dental caries K02.[address] [id number] May, Cough R05 ; Chronic obstructive pulmonary disease, unspecified COPD type J44.9 ; Shortness of breath R06.02 ; Obesity, unspecified E66.9 ; Body mass index (BMI) of 40.0-44.9 in adult Z68.41 and Encounter for immunization Z23 [facility] [address] [id number] May, Dental examination Z01.20 [place] [id number] [place] [address] [id number] May, Essential hypertension I10 [address] [id number] Apr, Anemia of renal disease D63.1 ; Type 2 diabetes mellitus with other diabetic kidney complication E11.29 ; Vitamin D deficiency, unspecified E55.9 and Chronic renal disease, unspecified stage N18.9 [facility] [address] [place] [address] Mar, [address] [id number] Mar, Type 2 diabetes mellitus with other diabetic kidney complication E11.29 ; Essential hypertension I10 ; Chronic renal disease, unspecified stage N18.9 and Chronic obstructive pulmonary disease with acute exacerbation J44.1 [facility] [id number], [place] [id number] Feb, [facility] [id number] [place] [address] [id number] Feb, Chronic renal disease, unspecified stage N18.9 ; Essential (primary) hypertension I10 and Type 2 diabetes mellitus with other diabetic kidney complication E11.29 [facility] [id number] [place] [address] [id number] Feb, Type 2 diabetes mellitus with other diabetic kidney complication E11.29 ; Chronic kidney disease, stage IV (severe) N18.4 ; Renal osteodystrophy N25.0 ; Anemia of renal disease D63.1 and Essential (primary) hypertension I10 [facility] [id number] [place] [address] [id number] December, [facility] [id number] [place] [address] [id number] December, Chronic obstructive pulmonary disease with acute exacerbation J44.1 ; Essential (primary) hypertension I10 ; Low back pain M54.5 and Right knee pain M25.561 [facility] [id number] [place] [address] [id number] Nov, Chronic renal disease, unspecified stage N18.9 ; Essential hypertension I10 ; Type 2 diabetes mellitus with other diabetic kidney complication E11.29 and Chronic obstructive pulmonary disease with acute exacerbation J44.1 [facility] [id number] [place] [address] [id number] Nov, Chronic renal disease, unspecified stage N18.9 ; Hyperlipidemia, unspecified E78.5 and Essential hypertension I10 [facility] [id number], [place] [id number] Oct, Chronic bronchitis, unspecified chronic bronchitis type J42 and Type 2 diabetes mellitus with diabetic nephropathy E11.21 [facility] [id number] [place] [address] [id number] Sep, Chronic bronchitis, unspecified chronic bronchitis type J42 ; Essential ( primary) hypertension I10 and Type 2 diabetes mellitus with other diabetic kidney complication E11.29 [facility] [id number] [place] [address] [id number] Sep, Chronic obstructive pulmonary disease with acute exacerbation J44.1 [address]00565[address] [id number] Aug, Type 2 diabetes mellitus with diabetic nephropathy E11.21 ; Chronic kidney disease, stage IV (severe) N18.4 ; Essential (primary) hypertension I10 and Encounter for immunization Z23 [address] [place] [address] [id number] Aug, Chronic kidney disease, stage IV (severe) N18.4 ; Type 2 diabetes mellitus with diabetic nephropathy E11.21 and Type 2 diabetes mellitus with hyperglycemia E11.65 [address] [place] [address] [id number] May, Anemia of renal disease D63.1 ; Essential (primary) hypertension I10 ; Renal osteodystrophy N25.0 ; Proteinuria R80.9 ; Chronic kidney disease, stage IV (severe) N18.4 and Type 2 diabetes mellitus with other diabetic kidney complication E11.29 [address] [place] [address] [id number] Mar, Type 2 diabetes mellitus with other diabetic kidney complication E11.29 ; Essential hypertension I10 ; Chronic renal disease, unspecified stage N18.9 and TMJ (temporomandibular joint disorder) M26.60 [address] [place] [address] [id number] Jan, Chronic kidney disease, stage IV (severe) N18.4 and Hyperlipidemia, unspecified E78.5 [address] [place] [address] [id number] December, Type 2 diabetes mellitus with other diabetic kidney complication E11.29 ; Abscess L02.91 and Chronic kidney disease, stage IV (severe) N18.4 [address] [place] [address] [id number] December, Abscess L02.91 [address] [place] [address] [id number] December, [place] [address] [place] [address] [id number] Oct, Renal osteodystrophy N25.0 ; Chronic kidney disease, stage IV (severe) N18.4 and Vitamin D deficiency E55.9 [place] [address] [place] [address] [id number] Oct, [place] [address] [place] [address] [id number] Sep, Type 2 diabetes mellitus with other diabetic kidney complication E11.29 ; Essential hypertension I10 and Chronic airway obstruction, not elsewhere classified J44.9 [place] [address] [place] [address] [id number] Sep, [place] [address] [place] [address] [id number] Aug, [place] [address] [place] [address] [id number] Jul, [place] [address] [place] [address] [id number] Jul, [place] [address] [place] [address] [id number] Jul, Chronic kidney disease, stage IV (severe) N18.4 ; Renal osteodystrophy N25.0 and Proteinuria R80.9 [facility] [id number] [place] [address]- 150[address] Jul, [facility] [address] [place] [address] [id number] Jun, [facility] [id number] [place] [address] [id number] Jun, [address] [place] [address] [id number] Jun, Diabetes with renal manifestations, type II or unspecified type, uncontrolled 250.42 and Right knee pain M25.561 [facility] [address] [address] May, [place] [address] [place] [address] [id number] May, Abscess L02.91 ; Encounter for immunization Z23 and Sprain of right knee, unspecified ligament, initial encounter S83.91XA [address] [place] [address] [id number] May, Abscess L02.91 [facility] [address] [id number] [id number] May, [place] [address] [place] [address] [id number] Apr, Diabetes with renal manifestations, type II or unspecified type, uncontrolled 250.42 and PPV23 (PNEUMOVAX) DX V03.82 [place] [address] [place] [address] [id number] Mar, [place] [address] [place] [address] [id number] Mar, Proteinuria 791.0 ; Renal osteodystrophy 588.0 ; Chronic kidney disease, Stage IV (severe) 585.4 ; Benign essential hypertension 401.1 and Vitamin D deficiency 268.9 [address] [place] [address] [place] [address] [id number] Feb, Avulsion fracture of ankle 824.8 [address] [place] [address] [place] [address] [id number] Feb, [place] [address] [place] [address] [id number] Feb, [place] [address] [place] [address] [id number] Feb, Diabetes with renal manifestations, type II or unspecified type, uncontrolled 250.42 [place] [address] [place] [address] [id number] Jan, Diabetes with renal manifestations, type II or unspecified type, uncontrolled 250.42 [place] [address] [place] [address] [id number] December, Diabetes with renal manifestations, type II or unspecified type, uncontrolled 250.42 and Unspecified essential hypertension 401.9 [address] [place] [address] [place] [address] [id number] December, [address] [id number] December, [facility] [address] [id number] [place] [id number] December, Essential hypertension 401.9 [facility] [address] [id number] [place] [id number] Nov, Essential hypertension 401.9 [facility] [address] [facility] [id number] [place] [id number] Nov, [facility] [address] [facility] [id number] [place] [id number] Nov, [facility] [address] [facility] [id number] [place] [id number] Nov, [facility] [place] [facility] [address]00565[address], [place] [address] Nov, [facility] [place] [facility] [address]00565[address], [place] [address] Nov, [facility] [address] [id number] [id number] Oct, [facility] [place] [facility] [address]00565[address], [place] [address]- [address] Oct, [facility] [address] [id number], [place] [id number] Oct, [facility] [place] [facility] [address]65[address], [place] [address]- [address] Oct, [facility] [place] [facility] [address]00565[address], [place] [address]- 25[address] Oct, [facility] [address] [facility] [id number], [place] [id number] Oct, [facility] [address] [id number], [place] [id number] Oct, [facility] [place] [facility] [address], [place] [address]- 78[address] Oct, [facility] [place] [facility] [address] [id number], [place] [address]- 0[address] Sep, [facility] [address] [id number] [place] [id number] Sep, [facility] [address] [id number] [place] [id number] Sep, [facility] [place] [facility] [address] [id number], [place] [address]- 244[address] Sep, [facility] [address] [facility] [id number] [place] [id number] Aug, [facility] [place] [facility] [address] [id number], [place] [address]- 1016 Aug, [facility] [address] [facility] [id number] [place] [id number] Aug, [facility] [place] [facility] [address] [id number], [place] [address]- 48[address] Aug, [facility] [address] [facility] [id number], [place] [id number] Aug, [facility] [place] [facility] [address], [place] [address]- 1466 Aug, [facility] [place] [facility] [address] [id number], [place] [address]- 0969 Aug, [facility] [address] [facility] [id number], [place] [id number] Aug, [facility] [place] [facility] [address], [place] [address]- 9[address] Jul, [facility] [place] [facility] [address] [id number], [place] [address]- 5523 Jul, [facility] [address] [facility] [id number], [place] [id number] Jul, [facility] [place] [facility] [address] [id number], [place] [address]- 4336 Jul, [facility] [address] [facility] [id number], [place] [id number] Jul, [facility] [place] [facility] [address] [id number], [place] [address]- [address]16 Jul, [facility] [address] [facility] [id number], [place] [id number] Jul, [facility] [place] [facility] [address] [id number], [place] [address]- 2546 Jul, [facility] [place] [facility] [address] [id number], [place] [address]- 2546 May, [facility] [address] [facility] [id number] [place] [id number] May, [facility] [address] [facility] [id number] [place] [id number] May, [facility] [place] [facility] [address] [id number], [place] [address] 2546 May, [facility] [address] [facility] [id number], [place] [id number] Apr, [facility] [place] [facility] [address], [place] [address]- 3696 Apr, [facility] [address] [facility] [id number], [place] [id number] Mar, [facility] [place] [facility] [address] [id number], [place] [address]- 5176 Mar, [facility] [place] [facility] [address] [id number], [place] [address]- 2546 Mar, [facility] [place] [facility] [address] [id number], [place] [address]- 2546 Mar, [facility] [address] [facility] [id number], [place] [id number] Mar, [facility] [address] [facility] [id number], [place] [id number] Feb, [facility] [place] [facility] [address] [id number], [place] [address]- 2546 Feb, [facility] [address] [facility] [id number], [place] [id number] Jan, [facility] [place] [facility] [address] [id number], [place] [address] 0416 Jan, [facility] [place] [facility] [address] [id number] [place] [address]- 4[address] Jan, [facility] [address] [id number] [place] [id number] Jan, [facility] [address] [id number] [place] [id number] Jan, [facility] [place] [facility] [address] [id number] [place] [address]- 6748 Jan, [facility] [address] [id number] [place] [id number] December, [facility] [place] [facility] [address] [id number] [place] [address]- 5[address] December, [facility] [place] [facility] [address] [id number] [place] [address]- 6145 Nov, [facility] [place] [facility] [address] [id number] [place] [address]- 2577 Nov, [facility] [address] [facility] [id number] [place] [id number] Nov, [facility] [place] [facility] [address] [id number] [place] [address]- 3747 Nov, [facility] [address] [facility] [id number], [place] [id number] Oct, [facility] [place] [facility] [address] [id number], [place] [address]- 6074 Oct, [facility] [address] [id number] [place] [id number] Oct, [facility] [place] [facility] [address] [id number] [place] [address]- 4545 Oct, [facility] [address] [facility] [id number] [place] [id number] Oct, [facility] [place] [facility] [address] [id number] [place] [address]- 8846 Oct, [facility] [address] [facility] [id number], [place] [id number] Oct, [facility] [place] [facility] [address] [id number], [place] [address]- 6511 Oct, [facility] [address] [id number], [place] [id number] Aug, [facility] [address] [id number], [place] [address]- 3877 Aug, [facility] [address] [facility] [id number], [place] [id number] Jul, [facility] [place] [facility] [address] [id number], [place] [address]- 4663 Jul, [facility] [address] [facility] [id number], [place] [id number] Jun, [facility] [place] [facility] [address] [id number], [place] [address]- 7963 Jun, [facility] [place] [facility] [address] [id number], [place] [address]- 8510 Jun, [facility] [address] [facility] [id number][place] [id number] Jun, [facility] [address] [facility] [id number], [place] [id number] May, [facility] [place] [facility] [address] [id number], [place] [address]- 6106 May, [facility] [place] [facility] [address] [id number], [place] [address]- 1723 May, [facility] [address] [facility] [id number], [place] [id number] May, [facility] [place] [facility] [address] [id number], [place] [address]- 3868 May, [facility] [address] [facility] [id number], [place] [id number] May, [facility] [place] [facility] [address] [id number], [place] [address]- 9818 May, [facility] [address] [facility] [id number], [place] [id number] May, [facility] [place] [facility] [address] [id number], [place] [address] 2546 Apr, [facility] [place] [facility] [address] [id number], [place] [address]- 2996 Apr, [facility] [address] [id number], [place] [id number] Apr, [facility] [place] [facility] [address] [id number], [place] [address] 2546 Apr, [facility] [place] [facility] [address] [id number], [place] [address]- 6795 Mar, [facility] [address] [id number] [place] [id number] Mar, [facility] [address] [id number], [place] 897035414 Feb, [facility] [address] [id number], [place] [id number] Feb, [facility] [address] [id number], [place] 785585855 Feb, [facility] [address] [id number] [place] [id number] Jan, [facility] [place] [facility] [address] [id number], [place] [address]- 2546 Jan, [facility] [address] [id number], [place] [id number] Jan, [facility] [address] [id number], [place] [id number] December, [facility] [place] [facility] [address] [id number][place] [address]- 2546 December, [facility] [address] [id number] [place] [id number] December, [facility] [address] [id number][place] [id number] December, [facility] [address] [id number][place] [id number] Nov, [facility] [address] [id number] [place] [id number] Nov, [facility] [address] [id number], [place] [address] Nov, [facility] [address] [id number] [place] [id number] Nov, [facility] [address] [id number] [place] [id number] Oct, [facility] [address] [id number] [place] [id number] Oct, [facility] [address] [id number] [place] [id number] Oct, [facility] [address] [id number] [place] [id number] Oct, [facility] [address] [id number] [place] [id number] Sep, [facility] [address] [id number] [place] [id number] Sep, [facility] [address] [id number], [place] [address] Aug, [facility] [address] [id number], [place] [address] Aug, [facility] [address] [id number] [place] [id number] Aug, [facility] [address] [id number] [place] [id number] Aug, [facility] [address] [id number] [place] [id number] Jul, [facility] [address] [id number] [place] [id number] Jul, [facility] [place] [facility] [address] [id number], [place] [address] Jul, [facility] [place] [facility] [address] [id number], [place] [address] Jul, [facility] [address] [id number][place] [id number] Jul, [facility] [place] [facility] [address] [id number] [place] [address] Jul, [facility] [address] [id number][place] [id number] Jul, [facility] [place] [facility] [address] [id number], [place] [address] Jul, [facility] [place] [facility] [address] [id number], [place] [address] Jul, [facility] [address] [id number] [place] [id number] Jul, [facility] [address] [id number] [place] [id number] Jul, [facility] [place] [facility] [address] [id number], [place] [address] Jul, [facility] [address] [facility] [id number][place] [id number] Jun, [facility] [place] [facility] [address] [id number], [place] [address] Jun, [facility] [place] [facility] [address] [id number], [place] [address] Jun, [facility] [address] [id number] [id number] Jun, [facility] [place] [facility] [address]65[address], [place] [address] Jun, [facility] [place] [facility] [address] [id number], [place] [address] Jun, [facility] [address] [facility] [id number][place] [id number] Jun, [facility] [place] [facility] [address] [id number][place] [address] Jun, [facility] [address] [facility] [id number][place] [id number] Jun, [facility] [place] [facility] [address] [id number], [place] [address] Jun, [facility] [address] [id number] [place] [id number] May, [facility] [address] [id number], [place] [address] Apr, [facility] [address] [id number], [place] [address] Apr, [facility] [address] [id number] [place] [id number] Apr, [facility] [address] [id number] [place] [id number] Apr, [facility] [address] [id number] [place] [id number] Apr, [facility] [address] [id number] [place] [id number] Apr, [facility] [address] [id number] [place] [id number] Apr, [facility] [address] [id number] [place] [address] Mar, [facility] [address] [id number] [place] [id number] Mar, [facility] [address] [id number] [place] [id number] Mar, [facility] [address] [id number][place] [id number] Mar, [facility] [address] [id number] [place] [id number] Mar, [facility] [address] [id number] [place] [id number] Mar, [facility] [address] [id number] [place] [id number] Mar, [facility] [address] [id number] [place] [id number] Feb, [facility] [address] [id number][place] [id number] Feb, [facility] [address] [id number] [place] [id number] Jan, [facility] [address] [id number] [place] [id number] Jan, [facility] [address] [id number] [place] [id number] Jan, [facility] [address] [id number] [place] [id number] Jan, [facility] [address] [id number] [place] [address] Jan, [facility] [address] [id number] [place] [id number] Jan, [facility] [address] [id number] [place] [id number] December, [facility] [address] [id number] [place] [id number] Nov, [facility] [address] [id number] [place] [address] Oct, [facility] [address] [id number] [place] [id number] Oct, [facility] [address] [id number] [place] [id number] Oct, [facility] [address] [id number], [place] [address] Oct, [facility] [address] [id number] [place] [id number] Oct, [facility] [address] [id number] [place] [address] Oct, [facility] [address] [id number] [place] [id number] Oct, [facility] [address] [id number] [place] [id number] Oct, [facility] [address] [id number] [place] [address] Oct, [facility] [address] [id number] [place] [id number] Oct, [facility] [address] [id number][place] [address] Sep, [facility] [address] [id number], [place] [address] Sep, [facility] [address] [id number] [place] [id number] Sep, [facility] [address] [id number] [place] [id number] Aug, [facility] [address] [id number] [place] [address] Aug, [facility] [address] [id number] [place] [id number] Aug, [facility] [address] [id number] [place] [address] Aug, [facility] [place] [facility] [address] [id number], [place] [address] Jul, [facility] [place] [facility] [address] [id number], [place] [address] Jul, [facility] [place] [facility] [address] [id number], [place] [address] Jul, [facility] [place] [facility] [address] [id number], [place] [address] Jul, [facility] [place] [facility] [address] [id number], [place] [address] Jun, [facility] [place] [facility] [address] [id number], [place] [address] Jun, [facility] [place] [facility] [address] [id number], [place] [address] May, [facility] [place] [facility] [address] [id number], [place] [address]- [address] May, [facility] [place] [facility] [address] [id number], [place] [address] December, [facility] [place] [facility] [address] [id number], [place] [address] December, [facility] [address] [id number] [place] [address]- [address] 14 Aug, 2010 [facility] [place] [facility] [address] [id number] [place] [address]- [address] 29 Jul, 2010 [facility] [place] [facility] [address] [id number] [place] [address]- 3760 28 Jul, 2010 [facility] [place] [facility] [address] [id number] [place] [address]- [address]75 23 Jul, 2010 [facility] [address] [id number] [place] [address]- [address] 16 Jul, 2010 [facility] [place] [facility] [address] [id number] [place] [address]- [address] 16 Jul, 2010 [facility] [place] [facility] [address] [id number] [place] [address]- [address]097 Jul, [facility] [place] [facility] [address] [id number] [place] [address]- [address] 30 Jun, 2010 [facility] [place] [facility] [address] [id number] [place] [address]- [address]202 30 Jun, 2010 [facility] [place] [facility] [address] [id number], [place] [address]- [address]262 29 Jun, 2010 [facility] [place] [facility] [address] [id number], [place] [address]- 9179 Jun, [facility] [place] [facility] [address] [id number], [place] [address]- 7678 02 Jun, 2010 [facility] [place] [facility] [address] [id number] [place] [address]- 9450 14 May, 2010 [facility] [place] [facility] [address] [id number], [place] [address]- [address] 18 Dec, 2009 [facility] [place] [facility] [address] [id number] [place] [address]- 0248 December, [facility] [place] [facility] [address] [id number], [place] [address]- [address] Oct, [facility] [address] [id number], [place] [address] Jul, [facility] [address] [id number] Jul, [facility] [address] [id number], [place] [address]- [address] Jul, [facility] [address] Jun, [facility] [address] May, [facility] [address]65[address], [place] [address] Jun, IMMUNIZATIONS No Known Immunizations SOCIAL HISTORY [...] paritneal site, port removed wound care to [facility], IV antibiotics 04/2018
--- OUTSIDE RECORDS SUMMARY | 2018-09-18 07:52 | XMS REPORT | Continuity of Care Document ---
Author Author [facility] Organization [facility] Address Unknown Phone Unavailable Allergies Active Description Code Type Severity Reaction Onset Reported/Identified Relationship to Patient Clinical Status Yes iodine [id number] Drug Allergy Unknown N/A 03/14/2006 Yes Iodinated Contrast- Oral and IV Dye [id number] Drug Allergy Moderate N/A Yes nalbuphine [id number] Drug Allergy Moderate N/A 11/05/2007 Yes pregabalin [id number] Drug Allergy Moderate N/A 11/05/2007 Yes valdecoxib [id number] Drug Allergy Mild N/A 12/03/2007 Yes sitagliptin [id number] Drug Allergy Unknown HIVES 09/29/2017 Medications There [...] FACP CCDS Ot 414.01 CORONARY ATHEROSCLEROSIS OF PLATINUM CORON 06/26/2013 MONI BURGOS FACC, SHANNON FACP CCDS Ot 583.81 NEPHRITIS NOS IN OTH DIS 06/26/2013 MONI BURGOS FACC, ALI FACP CCDS Ot 585.9 CHRONIC KIDNEY DISEASE, UNSPECIFIED 06/26/2013 MONI BURGOS FACC, ALI FACP CCDS Ot 786.59 CHEST PAIN NEC 06/26/2013 MONI BURGOS FACC, SHANNON FACP CCDS Ot V58.67 LONG-TERM (CURRENT) USE OF INSULIN 06/26/2013 MONI BURGOS FACC, SHANNON GONSALESP CCDS Ot V58.69 [facility],CURRENT USE 02/28/2014 AMEYA MCCOY MD [...] MCCOY MD Ot 414.01 CORONARY ATHEROSCLEROSIS OF PLATINUM CORON 02/28/2014 AMEYA MCCOY MD Ot 424.0 [...] USE OF INSULIN 09/29/2017 SANDER MERLENE L ELECTRIC RELAY TESTER Ot 786.50 CHEST PAIN NOS 09/29/2017 BAIMA, MERLENE L ELECTRIC RELAY TESTER Ot 786.50 CHEST PAIN NOS 09/29/2017 SANDER, MERLENE L ELECTRIC RELAY TESTER Ot 585.9 CHRONIC KIDNEY DISEASE, UNSPECIFIED 09/29/2017 JCARLOSMA, MERLENE L ELECTRIC RELAY TESTER Ot 786.09 RESPIRATORY ABNORM NEC 09/29/2017 JCARLOSMA, MERLENE L ELECTRIC RELAY TESTER Ot 786.2 COUGH 09/29/2017 JCARLOSMA, MERLENE L ELECTRIC RELAY TESTER Ot 403.90 HYPTNSV CHR KID DIS, UNSPEC, W CHR KD ST 09/29/2017 SANDER MERLENE L ELECTRIC RELAY TESTER Ot 414.00 CORON ATHEROSCLER NOS TYPE VESSEL, NATIV 09/29/2017 SANDER MERLENE L ELECTRIC RELAY TESTER Ot 585.9 CHRONIC KIDNEY DISEASE, UNSPECIFIED 09/29/2017 JCARLOSMA MERLENE L ELECTRIC RELAY TESTER Ot 786.09 RESPIRATORY ABNORM NEC 09/29/2017 SANDER MERLENE L ELECTRIC RELAY TESTER Ot 786.2 COUGH 10/02/2017 [place] AMAYA MD [...] MD, Ot I25.10 ATHSCL HEART DISEASE OF PL[place] CORONARY 10/02/2017 [place] AMAYA MD, Ot I48.91 [...] ADULT 10/02/2017 [place] AMAYA MD, Ot Z79.4 FDC (CURRENT) USE OF INSULIN 10/02/2017 [place] AMAYA MD, Ot Z99.81 DEPENDENCE ON SUPPLEMENTAL OXYGEN 11/18/2017 SONDRA POE MD Ot 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 11/18/2017 SONDRA POE MD Ot E66.01 MORBID [...] MD Ot I25.10 ATHSCL HEART DISEASE OF [place] CORONARY 11/18/2017 SONDRA POE MD Ot I48.91 [...] ADULT 11/18/2017 SONDRA POE MD, Ot Z79.01 FDC (CURRENT) USE OF ANTICOAGULANT 11/18/2017 SONDRA POE MD, Ot Z79.4 FDC (CURRENT) USE OF INSULIN 11/18/2017 SONDRA POE MD, Ot Z79.82 FDC (CURRENT) USE OF ASPIRIN 11/18/2017 SONDRA POE [...] 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 11/20/2017 SONDRA OPE MD, Ot E66.01 MORBID (SEVERE) OBESITY DUE [...] MD, Ot I25.10 ATHSCL HEART DISEASE OF [place] CORONARY 11/20/2017 SONDRA POE MD, Ot I48.91 [...] ADULT 11/20/2017 SONDRA POE MD, Ot Z79.01 PHOTO TECHNICIAN (CURRENT) USE OF ANTICOAGULANT 11/20/2017 SONDRA POE MD, Ot Z79.4 PHOTO TECHNICIAN (CURRENT) USE OF INSULIN 11/20/2017 SONDRA POE MD, Ot Z79.82 PHOTO TECHNICIAN (CURRENT) USE OF ASPIRIN 11/20/2017 SONDRA POE [...] ON SUPPLEMENTAL OXYGEN 12/05/2017 JCARLOSMA, MERLENE L ELECTRIC RELAY TESTER Ot 786.50 CHEST PAIN NOS 12/05/2017 BAIMA, MERLENE L ELECTRIC RELAY TESTER Ot 786.50 CHEST PAIN NOS 12/05/2017 BAIMA, MERLENE L ELECTRIC RELAY TESTER Ot 585.9 CHRONIC KIDNEY DISEASE, UNSPECIFIED 12/05/2017 BAIMA, MERLENE L ELECTRIC RELAY TESTER Ot 786.09 RESPIRATORY ABNORM NEC 12/05/2017 BAIMA, MERLENE L ELECTRIC RELAY TESTER Ot 786.2 COUGH 12/05/2017 BAIMA, MERLNEE L ELECTRIC RELAY TESTER Ot 403.90 HYPTNSV CHR KID DIS, UNSPEC, W CHR KD ST 12/05/2017 BAIMA, MERLENE L ELECTRIC RELAY TESTER Ot 414.00 CORON ATHEROSCLER NOS TYPE VESSEL, NATIV 12/05/2017 JCARLOSMA, MERLENE L ELECTRIC RELAY TESTER Ot 585.9 CHRONIC KIDNEY DISEASE, UNSPECIFIED 12/05/2017 JCARLOSMA MERLENE L ELECTRIC RELAY TESTER Ot 786.09 RESPIRATORY ABNORM NEC 12/05/2017 JCARLOSMA MERLENE L ELECTRIC RELAY TESTER Ot 786.2 COUGH 12/05/2017 LUI BURGOS, SONDRA [...] MD Ot I25.10 ATHSCL HEART DISEASE OF PL[place] CORONARY 12/05/2017 SONDRA POE MD Ot I48.91 [...] ADULT 12/05/2017 SONDRA POE MD, Ot Z79.01 PHOTO TECHNICIAN (CURRENT) USE OF ANTICOAGULANT 12/05/2017 SONDRA POE MD, Ot Z79.4 PHOTO TECHNICIAN (CURRENT) USE OF INSULIN 12/05/2017 SONDRA POE MD, Ot Z79.82 PHOTO TECHNICIAN (CURRENT) USE OF ASPIRIN 12/05/2017 SONDRA POE [...] MD, Ot I25.10 ATHSCL HEART DISEASE OF PL[place]IN[place] CORONARY 12/08/2017 SONDRA POE MD, Ot I48.91 [...] PAIN 12/08/2017 SONDRA POE MD Ot Z79.01 FDC (CURRENT) USE OF ANTICOAGULANT 12/08/2017 SONDRA POE MD Ot Z79.4 FDC (CURRENT) USE OF INSULIN 12/08/2017 SONDRA POE MD, Ot Z79.82 PHOTO TECHNICIAN (CURRENT) USE OF ASPIRIN 12/08/2017 SONDRA POE [...] W STAGE 5 CHR KID 12/08/2017 SONDRA PEO MD, Ot I25.10 ATHSCL HEART DISEASE OF [place] CORONARY 12/08/2017 SONDRA POE MD, Ot I48.91 UNSPECIFIED ATRIAL FIBRILLATION 12/08/2017 SONDRA POE MD, Ot J44.1 CHRONIC OBSTRUCTIVE PULMONARY DISEASE W 12/08/2017 SONDRA POE MD, Ot K21.9 GASTRO-ESOPHAGEAL REFLUX DISEASE WITHOUT 12/08/2017 OSNDRA POE MD, Ot M10.9 GOUT, UNSPECIFIED 12/08/2017 SONDRA POE MD, Ot M54.6 PAIN IN THORACIC SPINE 12/08/2017 SONDRA POE MD, Ot N18.6 END STAGE RENAL DISEASE 12/08/2017 SONDRA POE MD, Ot R07.89 OTHER CHEST PAIN 12/08/2017 SONDRA POE MD, Ot Z68.43 BODY MASS INDEX (BMI) 50-59.9 , ADULT 12/08/2017 SONDRA POE MD, Ot Z79.01 PHOTO TECHNICIAN (CURRENT) USE OF ANTICOAGULANT 12/08/2017 SONDRA PEO MD, Ot Z79.4 PHOTO TECHNICIAN (CURRENT) USE OF INSULIN 12/08/2017 SONDRA POE MD, Ot Z79.82 FDC (CURRENT) USE OF ASPIRIN 12/08/2017 SONDRA POE [...] OF METHICILLIN RESIS ST 06/01/2018 MERLENE BOUCHER ELECTRIC RELAY TESTER Ot 786.50 CHEST PAIN NOS 06/01/2018 BAIMA, MERLENE L ELECTRIC RELAY TESTER Ot 786.50 CHEST PAIN NOS 06/01/2018 BAIJEFFRY, MERLENE L ELECTRIC RELAY TESTER Ot 585.9 CHRONIC KIDNEY DISEASE, UNSPECIFIED 06/01/2018 BAIMA, MERLENE L ELECTRIC RELAY TESTER Ot 786.09 RESPIRATORY ABNORM NEC 06/01/2018 BAIMA, MERLENE L ELECTRIC RELAY TESTER Ot 786.2 COUGH 06/01/2018 BAIMA, MERLENE L ELECTRIC RELAY TESTER Ot 403.90 HYPTNSV CHR KID DIS, UNSPEC, W CHR KD ST 06/01/2018 BAIMA, MERLENE L ELECTRIC RELAY TESTER Ot 414.00 CORON ATHEROSCLER NOS TYPE VESSEL, NATIV 06/01/2018 BAIMA, MERLENE L ELECTRIC RELAY TESTER Ot 585.9 CHRONIC KIDNEY DISEASE, UNSPECIFIED 06/01/2018 BAIMA, MERLENE L ELECTRIC RELAY TESTER Ot 786.09 RESPIRATORY ABNORM NEC 06/01/2018 BAIMA, MERLENE L ELECTRIC RELAY TESTER Ot 786.2 COUGH 06/01/2018 PEPITO FREEMAN MD [...] OF SKIN OF SITES W 06/19/2018 RD OBNILLA APRN Ot N18.6 END STAGE RENAL DISEASE [...] END STAGE RENAL DISEASE 07/09/2018 RD BONILLA DISTRICT TRAFFIC CHIEF Ot T81.31XA DISRUPTION OF EXTERNAL OPERATION (SURGIC [...] (BMI) 50-59.9, ADULT 07/11/2018 JCARLOSMA, MERLENE L ELECTRIC RELAY TESTER Ot 786.50 CHEST PAIN NOS 07/11/2018 BAIMA, MERLENE L ELECTRIC RELAY TESTER Ot 786.50 CHEST PAIN NOS 07/11/2018 BAIMA, MERLENE L ELECTRIC RELAY TESTER Ot 585.9 CHRONIC KIDNEY DISEASE, UNSPECIFIED 07/11/2018 BAIMA, MERLENE L ELECTRIC RELAY TESTER Ot 786.09 RESPIRATORY ABNORM NEC 07/11/2018 BAIMA, MERLENE L ELECTRIC RELAY TESTER Ot 786.2 COUGH 07/11/2018 BAIMA, MERLENE L ELECTRIC RELAY TESTER Ot 403.90 HYPTNSV CHR KID DIS, UNSPEC, W CHR KD ST 07/11/2018 JCARLOSMA, MERLENE L ELECTRIC RELAY TESTER Ot 414.00 CORON ATHEROSCLER NOS TYPE VESSEL, NATIV 07/11/2018 JCRALOSMA, MERLENE L ELECTRIC RELAY TESTER Ot 585.9 CHRONIC KIDNEY DISEASE, UNSPECIFIED 07/11/2018 BAIMA, MERLENE L ELECTRIC RELAY TESTER Ot 786.09 RESPIRATORY ABNORM NEC 07/11/2018 SANDER, MERLENE L ELECTRIC RELAY TESTER Ot 786.2 COUGH 07/11/2018 PEPITO FREEMAN MD [...] DISRUPTION OF EXTERNAL OPERATION (SURGIC 07/11/2018 JOSEP NKAPP MD, Ot Z68.43 BODY MASS INDEX (BMI) 50-59.9, ADULT 07/11/2018 RD BONILLA APRN Ot E11.622 TYPE 2 DIABETES MELLITUS WITH OTHER SKIN 07/11/2018 RD BONILLA APRN Ot E66.01 MORBID (SEVERE) OBESITY DUE TO EXCESS CA 07/11/2018 RD BONILLA DISTRICT TRAFFIC CHIEF Ot L02.211 CUTANEOUS ABSCESS OF ABDOMINAL WALL 07/11/2018 RD BONILLA DISTRICT TRAFFIC CHIEF Ot L98.492 NON-PRS CHRONIC ULCER OF SKIN [...] OF EXTERNAL OPERATION (SURGIC 07/11/2018 AUGUSTIN GUTIERREZ MD Ot E11.622 TYPE 2 DIABETES MELLITUS WITH OTHER SKIN 07/11/2018 AUGUSTIN GUTIERREZ MD Ot E66.01 MORBID (SEVERE) OBESITY DUE TO EXCESS CA 07/11/2018 AUGUSTIN GUTIERREZ MD, Ot L98.492 NON-PRS CHRONIC ULCER OF SKIN OF SITES W 07/11/2018 AUGUSTIN GUTIERREZ MD, Ot N18.6 END STAGE RENAL DISEASE 07/11/2018 AUGUSTIN GUTIERREZ MD, Ot T81.31XA DISRUPTION OF EXTERNAL OPERATION (SURGIC 07/16/2018 DR BONILLA APRN Ot E11.622 TYPE 2 DIABETES MELLITUS WITH OTHER SKIN 07/16/2018 RD BONILLA APRN Ot E66.01 MORBID (SEVERE) OBESITY DUE TO EXCESS CA 07/16/2018 RD BONILLA APRN Ot L02.211 CUTANEOUS ABSCESS OF ABDOMINAL WALL 07/16/2018 RD BONILLA APRN Ot L98.492 NON-PRS CHRONIC ULCER OF SKIN OF SITES W 07/16/2018 RD BONILLA APRN Ot N18.6 END STAGE RENAL DISEASE 07/16/2018 RD BONILLA APRN Ot T81.31XA DISRUPTION OF EXTERNAL OPERATION (SURGIC 07/17/2018 Kaden GOULD MD, Ot E11.9 TYPE 2 DIABETES MELLITUS WITHOUT COMPLIC 07/17/2018 Kaden GOULD MD, Ot E66.9 OBESITY, UNSPECIFIED 07/17/2018 Kaden GOULD MD, Ot E78.5 HYPERLIPIDEMIA, UNSPECIFIED 07/17/2018 Kaden GOULD MD, Ot 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 07/17/2018 Kaden GOULD MD, Ot I25.10 ATHSCL HEART DISEASE OF [place] CORONARY 07/17/2018 Kaden GOULD MD, Ot I48.0 PAROXYSMAL ATRIAL FIBRILLATION 07/17/2018 Kaden GOULD MD, Ot I50.32 CHRONIC DIASTOLIC (CONGESTIVE) HEART ALIA 07/17/2018 Kaden GOULD MD, Ot J44.9 CHRONIC OBSTRUCTIVE PULMONARY DISEASE, U 07/17/2018 Kaden GOULD MD, Ot N17.9 ACUTE KIDNEY FAILURE, UNSPECIFIED 07/17/2018 Kaden GOULD MD, Ot N18.6 END STAGE RENAL DISEASE 07/17/2018 Kaden GOULD MD, Ot Z68.42 BODY MASS INDEX (BMI) 45.0-49.9, ADULT 07/17/2018 Kaden GOULD MD, Ot Z79.4 PHOTO TECHNICIAN (CURRENT) USE OF INSULIN 07/17/2018 Kaden GOULD MD, Ot Z79.899 OTHER FDC (CURRENT) DRUG THERAPY 07/17/2018 Kaden GOULD MD, Ot Z99.81 DEPENDENCE ON SUPPLEMENTAL OXYGEN 07/20/2018 AUGUSTIN GUTIERREZ MD, Ot E11.622 TYPE 2 DIABETES MELLITUS WITH OTHER SKIN 07/20/2018 AUGUSTIN GUTIERREZ MD, Ot E66.01 MORBID (SEVERE) OBESITY DUE TO EXCESS CA 07/20/2018 AUGUSTIN GUTIERREZ MD, Ot L98.492 NON-PRS CHRONIC ULCER OF SKIN OF SITES W 07/20/2018 AUGUSTIN GUTIERREZ MD, Ot N18.6 END STAGE RENAL DISEASE 07/20/2018 AUGUSTIN GUTIERREZ MD, Ot T81.31XA DISRUPTION OF EXTERNAL OPERATION (SURGIC 07/20/2018 AUGUSTIN GUTIERREZ MD, Ot Z68.43 BODY MASS INDEX (BMI) 50-59.9, ADULT 07/20/2018 JOSEP KNAPP MD, Ot E11.622 TYPE 2 DIABETES MELLITUS WITH OTHER SKIN 07/20/2018 JOSEP KNAPP MD, Ot E66.01 MORBID (SEVERE) OBESITY DUE TO EXCESS CA 07/20/2018 JOSEP KNAPP MD, Ot L02.211 CUTANEOUS ABSCESS OF ABDOMINAL WALL 07/20/2018 JOSEP KNAPP MD, Ot L98.492 NON-PRS CHRONIC ULCER OF SKIN OF SITES W 07/20/2018 JOSEP KNAPP MD, Ot N18.6 END STAGE RENAL DISEASE 07/20/2018 JOSEP KNAPP MD, Ot T81.31XA DISRUPTION OF EXTERNAL OPERATION (SURGIC 07/20/2018 JOSEP KNAPP MD, Ot E11.622 TYPE 2 DIABETES MELLITUS WITH OTHER SKIN 07/20/2018 JOSEP KNAPP MD, Ot E66.01 MORBID (SEVERE) OBESITY DUE TO EXCESS CA 07/20/2018 JOSEP KNAPP MD, Ot L02.211 CUTANEOUS ABSCESS OF ABDOMINAL WALL 07/20/2018 JOSEP KNAPP MD, Ot L98.492 NON-PRS CHRONIC ULCER OF SKIN OF SITES W 07/20/2018 JOSEP KNAPP MD, Ot N18.6 END STAGE RENAL DISEASE 07/20/2018 JOSEP KNAPP MD, Ot T81.31XA DISRUPTION OF EXTERNAL OPERATION (SURGIC 07/26/2018 AUGUSTIN GUTIERREZ MD, Ot E11.622 TYPE 2 DIABETES MELLITUS WITH OTHER SKIN 07/26/2018 AUGUSTIN GUTIERREZ MD, Ot E66.01 MORBID (SEVERE) OBESITY DUE TO EXCESS CA 07/26/2018 AUGUSTIN GUTIERREZ MD, Ot L98.492 NON-PRS CHRONIC ULCER OF SKIN OF SITES W 07/26/2018 AUUGSTIN GUTIERREZ MD, Ot N18.6 END STAGE RENAL DISEASE 07/26/2018 AUGUSTIN GUTIERREZ MD, Ot T81.31XA DISRUPTION OF EXTERNAL OPERATION (SURGIC 07/27/2018 JOSEP KNAPP MD, Ot E11.622 TYPE 2 DIABETES MELLITUS WITH OTHER SKIN 07/27/2018 JOSEP KNAPP MD, Ot E66.01 MORBID (SEVERE) OBESITY DUE TO EXCESS CA 07/27/2018 JOSEP KNAPP MD, Ot L02.211 CUTANEOUS ABSCESS OF ABDOMINAL WALL 07/27/2018 JOSEP KNAPP MD, Ot L98.492 NON-PRS CHRONIC ULCER OF SKIN OF SITES W 07/27/2018 ARIA MD, JOSEP G Ot N18.6 END STAGE RENAL DISEASE 07/27/2018 JOSEP KNAPP MD Ot T81.31XA DISRUPTION OF EXTERNAL OPERATION (SURGIC 07/27/2018 AUGUSTIN GUTIERREZ MD Ot E11.622 TYPE 2 DIABETES MELLITUS WITH OTHER SKIN 07/27/2018 AUGUSTIN GUTIERREZ MD, Ot E66.01 MORBID (SEVERE) OBESITY DUE TO EXCESS CA 07/27/2018 AUGUSTIN GUTIERREZ MD, Ot L98.492 NON-PRS CHRONIC ULCER OF SKIN OF SITES W 07/27/2018 AUGUSTIN GUTIERREZ MD, Ot N18.6 END STAGE RENAL DISEASE 07/27/2018 AUGUSTIN GUTIERREZ MD, Ot T81.31XA DISRUPTION OF EXTERNAL OPERATION (SURGIC 08/03/2018 AUGUSTIN GUTIERREZ MD, Ot E11.622 TYPE 2 DIABETES MELLITUS WITH OTHER SKIN 08/03/2018 AUGUSTIN GUTIERREZ MD, Ot E66.01 MORBID (SEVERE) OBESITY DUE TO EXCESS CA 08/03/2018 AUGUSTIN GUTIERREZ MD, Ot L98.492 NON-PRS CHRONIC ULCER OF SKIN OF SITES W 08/03/2018 AUGUSTIN GUTIERREZ MD, Ot N18.6 END STAGE RENAL DISEASE 08/03/2018 AUGUSTIN GUTIERREZ MD Ot T81.31XA DISRUPTION OF EXTERNAL OPERATION (SURGIC 08/03/2018 AUGUSTIN GUTIERREZ MD Ot Z68.43 BODY MASS INDEX (BMI) 50-59.9, ADULT 08/03/2018 AUGUSTIN GUTIERREZ MD Ot E11.622 TYPE 2 DIABETES MELLITUS WITH OTHER SKIN 08/03/2018 AUGUSTIN GUTIERREZ MD Ot E66.01 MORBID (SEVERE) OBESITY DUE TO EXCESS CA 08/03/2018 AUGUSTIN GUTIERREZ MD Ot L98.492 NON-PRS CHRONIC ULCER OF SKIN OF SITES W 08/03/2018 AUGUSTIN GUTIERREZ MD, Ot N18.6 END STAGE RENAL DISEASE 08/03/2018 AUGUSTIN GUTIERREZ MD Ot T81.31XA DISRUPTION OF EXTERNAL OPERATION (SURGIC 08/06/2018 Kaden GOULD MD Ot E11.9 TYPE 2 DIABETES MELLITUS WITHOUT COMPLIC 08/06/2018 Kaden GOULD MD Ot E66.9 OBESITY, UNSPECIFIED 08/06/2018 Kaden GOULD MD Ot E78.5 HYPERLIPIDEMIA, UNSPECIFIED 08/06/2018 Kaden GOULD MD Ot 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 08/06/2018 Kaden GOULD MD, Ot I25.10 ATHSCL HEART DISEASE OF [place] CORONARY 08/06/2018 Kaden GOULD MD, Ot I48.0 PAROXYSMAL ATRIAL FIBRILLATION 08/06/2018 Kaden GOULD MD, Ot I50.32 CHRONIC DIASTOLIC (CONGESTIVE) HEART ALIA 08/06/2018 Kaden GOULD MD, Ot J44.9 CHRONIC OBSTRUCTIVE PULMONARY DISEASE, U 08/06/2018 Kaden GOULD MD, Ot N17.9 ACUTE KIDNEY FAILURE, UNSPECIFIED 08/06/2018 Kaden GOULD MD, Ot N18.6 END STAGE RENAL DISEASE 08/06/2018 Kaden GOULD MD, Ot Z68.42 BODY MASS INDEX (BMI) 45.0-49.9, ADULT 08/06/2018 Kaden GOULD MD, Ot Z79.4 FDC (CURRENT) USE OF INSULIN 08/06/2018 Kaden GOULD MD, Ot Z79.899 OTHER FDC (CURRENT) DRUG THERAPY 08/06/2018 Kaden GOULD MD, Ot Z99.81 DEPENDENCE ON SUPPLEMENTAL OXYGEN 08/10/2018 AUGUSTIN GUTIERREZ MD Ot E11.622 TYPE 2 DIABETES MELLITUS WITH OTHER SKIN 08/10/2018 AUGUSTIN GUTIERREZ MD, Ot E66.01 MORBID (SEVERE) OBESITY DUE TO EXCESS CA 08/10/2018 AUGUSTIN GUTIERREZ MD Ot L98.492 NON-PRS CHRONIC ULCER OF SKIN OF SITES W 08/10/2018 AUGUSTIN GUTIERREZ MD Ot N18.6 END STAGE RENAL DISEASE 08/10/2018 AUGUSTIN GUTIERREZ MD, Ot T81.31XA DISRUPTION OF EXTERNAL OPERATION (SURGIC 08/10/2018 AUGUSTIN GUTIERREZ MD, Ot Z68.42 BODY MASS INDEX (BMI) 45.0-49.9, ADULT 08/17/2018 Kaden GOULD MD, Ot G47.33 OBSTRUCTIVE SLEEP APNEA (ADULT) (PEDIATR 08/18/2018 AUGUSTIN GUTIERREZ MD, Ot E11.622 TYPE 2 DIABETES MELLITUS WITH OTHER SKIN 08/18/2018 AUGUSTIN GUTIERREZ MD, Ot E66.01 MORBID (SEVERE) OBESITY DUE TO EXCESS CA 08/18/2018 AUGUSTIN GUTIERREZ MD, Ot L98.492 NON-PRS CHRONIC ULCER OF SKIN OF SITES W 08/18/2018 AUGUSTIN GUTIERREZ MD, Ot N18.6 END STAGE RENAL DISEASE 08/18/2018 AUGUSTIN GUTIERREZ MD, Ot T81.31XA DISRUPTION OF EXTERNAL OPERATION (SURGIC 08/19/2018 LUIS FERNANDO BURGOS, Kaden BUTLER Ot G47.33 OBSTRUCTIVE SLEEP APNEA (ADULT) (PEDIATR 08/19/2018 LUIS FERNANDO BURGOS, M LUKE Ot I48.1 PERSISTENT ATRIAL FIBRILLATION 08/23/2018 LUIS FERNANDO BURGOS, Kaden BUTLER Ot G47.33 OBSTRUCTIVE SLEEP APNEA (ADULT) (PEDIATR 08/23/2018 LUIS FERNANDO BURGOS, M LUKE Ot I48.1 PERSISTENT ATRIAL FIBRILLATION 08/23/2018 AUGUSTIN GUTIERREZ MD, Ot E11.622 TYPE 2 DIABETES MELLITUS WITH OTHER SKIN 08/23/2018 AUGUSTIN GUTIERREZ MD, Ot E66.01 MORBID (SEVERE) OBESITY DUE TO EXCESS CA 08/23/2018 AUGUSTIN GUTIERREZ MD, Ot L98.492 NON-PRS CHRONIC ULCER OF SKIN OF SITES W 08/23/2018 AUGUSTIN GUTIERREZ MD, Ot N18.6 END STAGE RENAL DISEASE 08/23/2018 AUGUSTIN GUTIERREZ MD, Ot T81.31XA DISRUPTION OF EXTERNAL OPERATION (SURGIC 08/23/2018 AUGUSTIN GUTIERREZ MD, Ot Z68.43 BODY MASS INDEX (BMI) 50-59.9, ADULT 08/27/2018 AUGUSTIN GUTIERREZ MD, Ot E11.622 TYPE 2 DIABETES MELLITUS WITH OTHER SKIN 08/27/2018 AUGUSTIN GUTIERREZ MD, Ot E66.01 MORBID (SEVERE) OBESITY DUE TO EXCESS CA 08/27/2018 AUGUSTIN GUTIERREZ MD, Ot L98.492 NON-PRS CHRONIC ULCER OF SKIN OF SITES W 08/27/2018 AUGUSTIN GUTIERREZ MD, Ot N18.6 END STAGE RENAL DISEASE 08/27/2018 AUGUSTIN GUTIERREZ MD, Ot T81.31XA DISRUPTION OF EXTERNAL OPERATION (SURGIC 08/29/2018 JOSEP KNAPP MD Ot E11.622 TYPE 2 DIABETES MELLITUS WITH OTHER SKIN 08/29/2018 JOSEP KNAPP MD Ot E66.01 MORBID (SEVERE) OBESITY DUE TO EXCESS CA 08/29/2018 JOSEP KNAPP MD Ot 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, 08/29/2018 JOSEP KNAPP MD, Ot L98.492 NON-PRS CHRONIC ULCER OF SKIN OF SITES W 08/29/2018 JOSEP KNAPP MD, Ot N18.6 END STAGE RENAL DISEASE 08/29/2018 JOSEP KNAPP MD, Ot T81.31XA DISRUPTION OF EXTERNAL OPERATION (SURGIC 08/31/2018 AUGUSTIN GUTIERREZ MD, Ot E11.622 TYPE 2 DIABETES MELLITUS WITH OTHER SKIN 08/31/2018 AUGUSTIN GUTIERREZ MD, Ot E66.01 MORBID (SEVERE) OBESITY DUE TO EXCESS CA 08/31/2018 AUGUSTIN GUTIERREZ MD, Ot L98.492 NON-PRS CHRONIC ULCER OF SKIN OF SITES W 08/31/2018 AUGUSTIN GUTIERREZ MD, Ot N18.6 END STAGE RENAL DISEASE 08/31/2018 AUGUSTIN GUTIERREZ MD, Ot T81.31XA DISRUPTION OF EXTERNAL OPERATION (SURGIC 08/31/2018 AUGUSTIN GUTIERREZ MD, Ot Z68.42 BODY MASS INDEX (BMI) 45.0-49.9, ADULT 09/04/2018 JOSEP KNAPP MD, Ot E11.622 TYPE 2 DIABETES MELLITUS WITH OTHER SKIN 09/04/2018 JOSEP KNAPP MD, Ot E66.01 MORBID (SEVERE) OBESITY DUE TO EXCESS CA 09/04/2018 JOSEP KNAPP MD, Ot 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, 09/04/2018 JOSEP KNAPP MD, Ot L98.492 NON-PRS CHRONIC ULCER OF SKIN OF SITES W 09/04/2018 JOSEP KNAPP MD, Ot N18.6 END STAGE RENAL DISEASE 09/04/2018 JOSEP KNAPP MD, Ot T81.31XA DISRUPTION OF EXTERNAL OPERATION (SURGIC 09/07/2018 AUGUSTIN GUTIERREZ MD, Ot E11.622 TYPE 2 DIABETES MELLITUS WITH OTHER SKIN 09/07/2018 AUGUSTIN GUTIERREZ MD, Ot E66.01 MORBID (SEVERE) OBESITY DUE TO EXCESS CA 09/07/2018 AUGUSTIN GUTIERREZ MD, Ot L98.492 NON-PRS CHRONIC ULCER OF SKIN OF SITES W 09/07/2018 AUGUSTIN GUTIERREZ MD, Ot N18.6 END STAGE RENAL DISEASE 09/07/2018 AUGUSTIN GUTIERREZ MD, Ot T81.31XA DISRUPTION OF EXTERNAL OPERATION (SURGIC 09/07/2018 AUGUSTIN GUTIERREZ MD, Ot Z68.42 BODY MASS INDEX (BMI) 45.0-49.9, ADULT 09/10/2018 JOSEP KNAPP MD, Ot E11.622 TYPE 2 DIABETES MELLITUS WITH OTHER SKIN 09/10/2018 JOSEP KNAPP MD, Ot E66.01 MORBID (SEVERE) OBESITY DUE TO EXCESS CA 09/10/2018 JOSEP KNAPP MD, Ot L98.492 NON-PRS CHRONIC ULCER OF SKIN OF SITES W 09/10/2018 JOSEP KNAPP MD, Ot N18.6 END STAGE RENAL DISEASE 09/10/2018 JOSEP KNAPP MD, Ot T81.31XA DISRUPTION OF EXTERNAL OPERATION (SURGIC 09/17/2018 JOSEP KNAPP MD, Ot E11.622 TYPE 2 DIABETES MELLITUS WITH OTHER SKIN 09/17/2018 JOSEP KNAPP MD, Ot E66.01 MORBID (SEVERE) OBESITY DUE TO EXCESS CA 09/17/2018 JOSEP KNAPP MD, Ot L98.492 NON-PRS CHRONIC ULCER OF SKIN OF SITES W 09/17/2018 JOSEP KNAPP MD, Ot N18.6 END STAGE RENAL DISEASE 09/17/2018 JOSEP KNAPP MD, Ot T81.31XA DISRUPTION OF [...] - 09/29/17 19:21 QUANTITY OF GROWTH . [facility] Bacterial blood culture SEE COMMEN NR Complete urinalysis with reflex to culture - 09/29/17 20:22 Urine color determination YELLOW NR Urine clarity determination CLEAR [facility] Urine pH measurement by test strip 5 [...] 09:17 Bacteria identification in wound by culture [id number] NRG FREE TEXT EXTERNAL SENSITIVITY REPORTED 11/20/17 [...] Bacteria identification in isolate by anaerobe culture [facility] Gram stain microscopy - 06/29/18 10:58 Gram stain microscopy GRAM STAIN PERFORMED AT ON LICENSE OF [facility] NR Bacteria identification in wound by culture - 06/29/18 10:58 Bacteria identification in wound by culture [id number] NRG FREE TEXT EXTERNAL SUSCEPTIBILITY REPORTED 07-01-18, 1105. NRG QUANTITY OF GROWTH FEW NRG FREE TEXT ENTRY 2 RESISTANT ORGANISM/CONTACT PRECAUTIONS NRG ON LICENSE OF [facility] Sensitivity Panel - 06/29/18 10:58 Oxacillin susceptibility [...] Status Pt. Type Provider Facility Loc./Unit Complaint [id number] 09/14/2018 09:06:00 09/14/2018 23:59:59 CLS Outpatient JOSEP KNAPP MD [facility] [id number] 09/07/2018 13:19:00 09/07/2018 23:59:59 CLS Outpatient JOSEP KNAPP MD [facility] [id number] 08/31/2018 08:14:00 08/31/2018 23:59:59 CLS Outpatient JOSEP KNAPP MD [facility] [id number] 08/24/2018 09:14:00 08/24/2018 23:59:59 CLS Outpatient JOSEP KNAPP MD Via [facility] [id number] 08/18/2018 21:00:00 08/19/2018 06:35:00 DIS Outpatient Kaden GOULD MD Via [facility] SLEEP PAF [id number] 08/08/2018 09:13:00 08/08/2018 23:59:59 CLS Outpatient AUGUSTIN GUTIERREZ MD [facility] [id number] 08/01/2018 09:03:00 08/01/2018 23:59:59 CLS Outpatient AUGUSTIN GUTIERREZ MD Via [facility] [id number] 07/25/2018 09:20:00 07/25/2018 23:59:59 CLS Outpatient AUGUSTIN GUTIERREZ MD Via [facility] [id number] 07/18/2018 09:11:00 07/18/2018 23:59:59 CLS Outpatient AUGUSTIN GUTIERREZ MD [facility] [id number] 07/11/2018 11:01:00 07/11/2018 23:59:59 CLS Outpatient Kaden GOULD MD Via [facility] [address] [id number] 07/04/2018 09:17:00 07/04/2018 23:59:59 CLS Outpatient AUGUSTIN GUTIERREZ MD [facility] [id number] 06/29/2018 09:05:00 06/29/2018 23:59:59 CLS Outpatient JOSEP KNAPP MD [facility] [id number] 06/22/2018 09:04:00 06/22/2018 23:59:59 CLS Outpatient JOSEP KNAPP MD [facility] [id number] 06/15/2018 09:37:00 06/15/2018 23:59:[address] BONILLA APRN [facility] [id number] 06/08/2018 10:42:00 06/08/2018 23:59:59 CLS Outpatient JOSEP KNAPP MD Via [facility] [id number] 06/01/2018 10:57:00 06/01/2018 23:59:59 CLS Outpatient JOSEP KNAPP MD Via [facility] [id number] 05/17/2018 21:04:00 05/17/2018 23:59:59 CLS Outpatient PEPITO FREEMAN MD Via [facility] LABT [id number] 12/05/2017 12:09:00 12/05/2017 16:33:00 DIS Emergency SONDRA POE MD Via [facility] ER SOA COUGH [id number] 11/18/2017 09:10:00 11/18/2017 12:50:00 DIS Emergency SONDRA POE MD Via [facility] ER CHEST PAIN [id number] 09/30/2017 19:19:00 10/02/2017 11:20:00 DIS Inpatient AFRICA AMAYA MD Via [facility] ICU COPD EXACERBATION;POSS CHF;POSSIBLE PNEUMONIA [id number] 05/23/2017 15:24:00 05/23/2017 23:59:59 CLS Preadmit ALEX ALLAN NP-C Via [facility] RAD E88.09 HYPALBUMINEMIA [id number] 02/26/2014 17:28:00 02/28/2014 09:00:00 DIS Inpatient DARIUS BURGOS, AMEYA Cunningham [facility] CSD N/V/D [id number] 07/31/2013 12:33:00 07/31/2013 23:59:59 CLS Outpatient BAIMA, MERLENE L ELECTRIC RELAY TESTER Via [facility] RT HTN,COUGH,DYSPNEA [id number] 07/10/2013 11:36:00 07/10/2013 23:59:59 CLS Outpatient BAIMA, MERLENE L ELECTRIC RELAY TESTER Via [facility] RAD DYSPNEA,COUGH [id number] 07/05/2013 10:13:00 07/05/2013 23:59:59 CLS Outpatient BAIMA, MERLENE L ELECTRIC RELAY TESTER [facility] LAB CKD [id number] 06/25/2013 07:13:00 06/26/2013 11:25:00 DIS Outpatient MONI BURGOS FACC, SHANNON CHRISTOPHER CCDS Via [facility] CATH ABN STRESS, ANGINA,SOB,HLP [id number] 06/13/2013 07:38:00 06/13/2013 23:59:59 CLS Outpatient BAIMA, MERLENE L ELECTRIC RELAY TESTER Via [facility] RAD CP [id number] 05/17/2013 08:46:00 05/17/2013 23:59:59 CLS Outpatient BAIMA, MERLENE L ELECTRIC RELAY TESTER Via [facility] CARD CP [id number] 01/09/2012 21:48:00 Document Registration [id number] 10/14/2010 22:32:00 Document Registration [id number] 08/23/2018 16:00:00 08/23/2018 23:59:59 [facility] [place] [id number] 05/15/2017 08:20:00 Document Registration
[2018-09-18] MEDS ORDERED: RT-ALBUTEROL/IPRATROPIUM 3 ML (DUONEB) VIAL INH ONE (08:00)
[2018-09-18 08:11] LABS: BASOPHILS % (AUTO) 0 % (0-10); EOSINOPHILS # (AUTO) 0.2 10^3/uL (0.0-0.3); EOSINOPHILS % (AUTO) 1 % (0-10); HEMATOCRIT 38 % (35-52); HEMOGLOBIN 12.9 G/DL (11.5-16.0); LYMPHOCYTES # (AUTO) 2.2 X 10^3 (1.0-4.0); LYMPHOCYTES % (AUTO) 14 % (12-44); MEAN CORPUSCULAR HEMOGLOBIN 33 PG (25-34); MEAN CORPUSCULAR HGB CONC 34 G/DL (32-36); MEAN CORPUSCULAR VOLUME 97 FL (80-99); MEAN PLATELET VOLUME 11.3 FL (7.4-10.4); MONOCYTES # (AUTO) 0.8 X 10^3 (0.0-1.0); MONOCYTES % (AUTO) 6 % (0-12); NEUTROPHILS # (AUTO) 11.9 X 10^3 (1.8-7.8); NEUTROPHILS % (AUTO) 79 % (42-75); PLATELET COUNT 203 10^3/uL (130-400); RED CELL DISTRIBUTION WIDTH 14.8 % (10.0-14.5); WHITE BLOOD COUNT 15.2 10^3/uL (4.3-11.0)
[2018-09-18 08:25] LABS: INR 1.3 (0.8-1.4); PROTHROMBIN TIME PATIENT 15.7 SEC (12.2-14.7)
[2018-09-18 08:32] LABS: BAND NEUTROPHILS 0 %; BASOPHILS % (MANUAL) 0 %; EOSINOPHILS % (MANUAL) 2 %; LYMPHOCYTES % (MANUAL) 10 %; MONOCYTES % (MANUAL) 3 %; NEUTROPHILS % (MANUAL) 85 %; RBC MORPH NORMAL
[2018-09-18 08:34] LABS: ALANINE AMINOTRANSFERASE 14 U/L (0-55); ALBUMIN 3.6 GM/DL (3.2-4.5); ALKALINE PHOSPHATASE 151 U/L (40-136); BILIRUBIN,TOTAL 1.1 MG/DL (0.1-1.0); BUN/CREATININE RATIO 9; CALCIUM 8.8 MG/DL (8.5-10.1); CARBON DIOXIDE 23 MMOL/L (21-32); CHLORIDE 106 MMOL/L (98-107); CREATININE SERUM 2.58 MG/DL (0.60-1.30); GFR ESTIMATED 19; GLUCOSE 167 MG/DL (70-105); POTASSIUM 3.7 MMOL/L (3.6-5.0); SODIUM 141 MMOL/L (135-145)
--- NOTE | 2018-09-18 08:51 | Diagnostic Imaging Report ---
Portable erect AP chest at 835 hours. INDICATION: Shortness of breath. FINDINGS: The mild cardiomegaly noted on the prior exam of 12/05/2017 is again evident and no different. The central pulmonary vascularity is perhaps somewhat prominent, but there is no evidence for overt failure, pneumonia or pleural effusion. The mediastinum is not widened. The osseous structures are intact. The central venous catheter on the right seen previously has been removed without apparent complication. IMPRESSION: There is mild cardiomegaly and chronic pulmonary disease, but there is no evidence for an acute cardiopulmonary abnormality. Dictated by: Dictated on workstation # [id number]
--- NOTE | 2018-09-18 08:59 | ED General ---
General Chief Complaint: Respiratory Problems Stated Complaint: HIGH BP;SOB Nursing Triage Note: TO ED FROM DIALYSIS C/O SOA ONSET YESTERDAY LAST DIALYSIS ON SAT Nursing Sepsis Screen: No Definite Risk Source of Information: Patient Exam Limitations: No Limitations History of Present Illness Date Seen by Provider: Sep 18, 2018 Time Seen by Provider: 07:54 Initial Comments This 68-year-old woman presents to the emergency room via private vehicle as directed by dialysis. She presented to dialysis this morning but dialysis cannot be performed because of water issues in the facility. Patient was experiencing dyspnea and chest heaviness, worse with exertion. She reports a nitroglycerin given at dialysis improved her symptoms somewhat. She states her symptoms started about 48 hours ago. She has known history of coronary artery disease. She reports her last cardiac catheter performed at [facility] November 2017 showed 35 percent stenosis with no obstruction. Her last cardiac catheterization performed at this facility was in 2012 and demonstrated mild-to- moderate coronary artery disease with up to 50 percent stenosis without obstruction. Patient was transferred to [facility] in November 2017 from this ER for evaluation of chest pain. Her primary care provider is Carroll Trent at [facility] and her proof tester is Dr. Ghosh. Her drawer in hand is Dr. Alba Vázquez. Allergies and Home Medications Allergies Coded Allergies: Iodinated Contrast- Oral and IV Dye (Verified Allergy, Intermediate, ) nalbuphine (Verified Allergy, Intermediate, 11/05/07) pregabalin (Verified Allergy, Intermediate, 11/05/07) valdecoxib (Unverified Allergy, Mild, 12/03/07) iodine (Verified Allergy, Unknown, 03/14/06) sitagliptin (Unverified Allergy, Unknown, HIVES, 09/29/17) Home Medications Acetaminophen 650 Mg Tablet.er, 650 MG PO Q6H PRN for PAIN-MILD, (Reported) Albuterol Sulfate 1 Puff Puff, 2 PUFF IH QID PRN for SHORTNESS OF BREATH, ( Reported) 1 PUFF = 90 MCG Albuterol Sulfate 1 Puff Puff, 1-4 PUFF IH Q4H PRN for WHEEZING 1 PUFF = 90 MCG Prescribed by: SONDRA MARIN on 09/18/18 1058 Amlodipine Besylate 10 Mg Tablet, 10 MG PO DAILY, (Reported) Apixaban 5 Mg Tablet, 5 MG PO BID, (Reported) Atorvastatin Calcium 40 Mg Tablet, 40 MG PO HS, (Reported) Clonidine HCl 0.1 Mg Tablet, 0.1 MG PO DAILY, (Reported) Esomeprazole Magnesium 40 Mg Cap, 40 MG PO BID, (Reported) Furosemide 40 Mg Tablet, 40 MG PO BID, (Reported) Hydralazine HCl 50 Mg Tablet, 50 MG PO Q8H, (Reported) Insulin Determir 1,000 Units/10 Ml Soln, 68 UNITS SQ BID, (Reported) Metoprolol Tartrate 50 Mg Tablet, 75 MG PO BID take one and a half to equal 75 mg twice a day Prescribed by: FILI FAJARDO on 07/11/18 1314 Patient Home Medication List Home Medication List Reviewed: Yes Review of Systems Review of Systems Constitutional: no symptoms reported EENTM: no symptoms reported Respiratory: see HPI Cardiovascular: see HPI Gastrointestinal: no symptoms reported Genitourinary: no symptoms reported : No Musculoskeletal: no symptoms reported Skin: no symptoms reported Psychiatric/Neurological: No Symptoms Reported Hematologic/Lymphatic: No Symptoms Reported Immunological/Allergic: no symptoms reported Past Tfafsyf-Ynrvky-Sgnhyl Hx Past Med/Social Hx: Reviewed Nursing Past Med/Soc Hx Patient Social History Alcohol Use: Denies Use Recreational Drug Use: No Smoking Status: Never a Smoker 2nd Hand Smoke Exposure: No Recent Foreign Travel: No Contact w/Someone Who Travel: No Recent Infectious Disease Expo: No Recent Hopitalizations: Yes (been to ER, ) Immunizations Up To Date Tetanus Booster (TDap): Less than 5yrs PED Vaccines UTD: No Date of Pneumonia Vaccine: Jun 07, 2017 Date of Influenza Vaccine: May 08, 2018 Seasonal Allergies Seasonal Allergies: Yes Past Medical History Surgeries: Yes Abdominal, Bowel Surgery, Brain Shunt, Cardiac, Gallbladder, Neurological, Orthopedic, Renal, Vascular Surgery (dialysis fistula left arm) Respiratory: Yes (O2 DEPENDENT AT 3L/NC CONTINUOUSLY) Asthma, COPD Currently Using CPAP: No Currently Using BIPAP: No Cardiac: Yes Atrial Fibrillation, Coronary Artery Disease, High Cholesterol, Hypertension Neurological: Yes Stroke 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 Disorders: No Female 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 Sexually Transmitted Disease: No HIV/AIDS: No Genitourinary: Yes (HAS LEFT ARM AV FISTULA) Kidney Stones, Renal Failure, Dialysis Gastrointestinal: Yes Gastroesophageal Reflux, Polyps, Hiatal Hernia Musculoskeletal: Yes Degenerate Disk Disease, Arthritis, Back Injury, Chronic Back Pain, Gout Endocrine: Yes (MORBID OBESITY) Diabetes, Insulin dep HEENT: Yes Cataract, Tinnitis Loss of Vision: Denies Hearing Impairment: Denies Cancer: No Psychosocial: Yes Sleep Difficulties, Depression Integumentary: No Blood Disorders: No Adverse Reaction/Blood Tranf: No Family Medical History Reviewed Nursing Family Hx Cancer 03 FATHER Family history: Cardiovascular disease 03 FATHER 03 FATHER Family history: Diabetes mellitus 09 SISTER Family history: Gastrointestinal disease 03 MOTHER grandson Kidney disease Myocardial infarction Stroke 09 SISTER CVA, Diabetes Physical Exam Vital Signs Vital Signs - First Documented 09/18/18 09/18/18 07:47 10:58 Temp 98.0 Pulse 100 Resp 20 B/P (MAP) 161/91 (114) Pulse Ox 98 O2 Delivery Nasal Cannula O2 Flow Rate 3.00 Capillary Refill : Less Than 3 Seconds Height, Weight, BMI Height: 5'4.00" Weight: 211lbs. 0.0oz. 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 Intraocular pressure was obtained with Darshan-Pen at 20 mmHg. Fluorescein stain failed to reveal any corneal injury. Progress/Results/Core Measures Suspected Sepsis Recent Fever Within 48 Hours: No Infection Criteria Present: Suspected New Infection New/Unexplained Altered Menta: No Sepsis Screen: No Definite Risk SIRS Temperature:98.0 Pulse: 100 Respiratory Rate: 20 Laboratory Tests 09/18/18 08:00: White Blood Count 15.2H Blood Pressure / Mean: 09/18/18 08:00: Lactic Acid Level 1.35 Laboratory Tests 09/18/18 08:00: Creatinine 2.58H, INR Comment 1.3, Platelet Count 203, Total Bilirubin 1.1H Results/Orders Lab Results Laboratory Tests Test 09/18/18 08:00 09/18/18 10:00 09/18/18 10:15 Range/Units White Blood Count 15.2 H 4.3-11.0 10^3/uL Red Blood Count 3.94 L 4.35-5.85 10^6/uL Hemoglobin 12.9 11.5-16.0 G/DL Hematocrit 38 35-52 % Mean Corpuscular Volume 97 80-99 FL Mean Corpuscular Hemoglobin 33 25-34 PG Mean Corpuscular Hemoglobin Concent 34 32-36 G/DL Red Cell Distribution Width 14.8 H 10.0-14.5 % Platelet Count 203 130-400 10^3/uL Mean Platelet Volume 11.3 H 7.4-10.4 FL Neutrophils (%) (Auto) 79 H 42-75 % Lymphocytes (%) (Auto) 14 12-44 % Monocytes (%) (Auto) 6 0-12 % Eosinophils (%) (Auto) 1 0-10 % Basophils (%) (Auto) 0 0-10 % Neutrophils # (Auto) 11.9 H 1.8-7.8 X 10^3 Lymphocytes # (Auto) 2.2 1.0-4.0 X 10^3 Monocytes # (Auto) 0.8 0.0-1.0 X 10^3 Eosinophils # (Auto) 0.2 0.0-0.3 10^3/uL Basophils # (Auto) 0.0 0.0-0.1 10^3/uL Neutrophils % (Manual) 85 % Lymphocytes % (Manual) 10 % Monocytes % (Manual) 3 % Eosinophils % (Manual) 2 % Basophils % (Manual) 0 % Band Neutrophils 0 % Blood Morphology Comment NORMAL Prothrombin Time 15.7 H 12.2-14.7 SEC INR Comment 1.3 0.8-1.4 Activated Partial Thromboplast Time 34 24-35 SEC Sodium Level 141 135-145 MMOL/L Potassium Level 3.7 3.6-5.0 MMOL/L Chloride Level 106 98-107 MMOL/L Carbon Dioxide Level 23 21-32 MMOL/L Anion Gap 12 5-14 MMOL/L Blood Urea Nitrogen 23 H 7-18 MG/DL Creatinine 2.58 H 0.60-1.30 MG/DL Estimat Glomerular Filtration Rate 19 BUN/Creatinine Ratio 9 Glucose Level 167 H 70-105 MG/DL Lactic Acid Level 1.35 0.50-2.00 MMOL/L Calcium Level 8.8 8.5-10.1 MG/DL Corrected Calcium 9.1 8.5-10.1 MG/DL Total Bilirubin 1.1 H 0.1-1.0 MG/DL Aspartate Amino Transf (AST/SGOT) 19 5-34 U/L Alanine Aminotransferase (ALT/SGPT) 14 0-55 U/L Alkaline Phosphatase 151 H 40-136 U/L Troponin I < 0.028 < 0.028 <0.028 NG/ML C-Reactive Protein High Sensitivity 0.50 0.00-0.50 MG/DL B-Type Natriuretic Peptide 1002.5 H <100.0 PG/ML Total Protein 7.0 6.4-8.2 GM/DL Albumin 3.6 3.2-4.5 GM/DL Urine Color YELLOW Urine Clarity CLEAR Urine pH 6.5 5-9 Urine Specific [place] 1.015 L 1.016-1.022 Urine Protein 4+ NEGATIVE Urine Glucose (UA) 1+ H NEGATIVE Urine Ketones NEGATIVE NEGATIVE Urine Nitrite NEGATIVE NEGATIVE Urine Bilirubin NEGATIVE NEGATIVE Urine Urobilinogen NORMAL NORMAL MG/DL Urine Leukocyte Esterase 1+ H NEGATIVE Urine RBC (Auto) 1+ H NEGATIVE Urine RBC NONE /HPF Urine WBC 2-5 /HPF Urine Squamous Epithelial Cells 5-10 /HPF Urine Crystals NONE /LPF Urine Bacteria FEW H /HPF Urine Casts NONE /LPF Urine Mucus NEGATIVE /LPF Urine Culture Indicated CULTURE PENDING Micro Results Microbiology 09/18/18 Influenza Types A,B Antigen (LATRELL) - Final, Complete My Orders Orders - SONDRA POE MD Cbc With Automated Diff (09/18/18 08:00) Comprehensive Metabolic Panel (09/18/18 08:00) Blood Culture (09/18/18 08:00) Sputum Culture (09/18/18 08:00) Urinalysis (09/18/18 08:00) Urine Culture (09/18/18 08:00) Protime With Inr (09/18/18 08:00) Partial Thromboplastin Time (09/18/18 08:00) Chest 1 View, Ap/Pa Only (09/18/18 08:00) Saline Lock/Iv-Start (09/18/18 08:00) Saline Lock/Iv-Start (09/18/18 08:00) Vital Signs Adult Sepsis Patie Q15M (09/18/18 08:00) O2 (09/18/18 08:00) Remove Rings In Anticipation O (09/18/18 08:00) Lactic Acid Analyzer (09/18/18 08:00) Influenza A And B Antigens (09/18/18 08:00) BNP (09/18/18 08:00) Hs C Reactive Protein (09/18/18 08:00) Troponin I (09/18/18 08:00) Albuterol/Ipra Inhalation Soln (Duoneb I (09/18/18 08:00) Svn Small Volume Nebulizer (09/18/18 08:00) Manual Differential (09/18/18 08:00) Ekg Tracing (09/18/18 09:05) Monitor-Rhythm Ecg Trace Only (09/18/18 09:05) Aspirin Chewable Tablet (Baby Aspirin Ch (09/18/18 09:15) Nitroglycerin 0.4 Mg Btl 25's (Nitrostat (09/18/18 09:15) Troponin I (09/18/18 09:59) Tetracaine 0.5% Ophth Elise Sdv (Tetracai (09/18/18 10:15) Fluorescein Strips ([id number]) (09/18/18 10:15) Balanced Salt Irrigation Soln (Bss Irrig (09/18/18 10:15) Medications Given in ED Current Medications Medications Dose Ordered Sig/Alfonso Route Start Time Stop Time Status Last Admin Dose Admin Aspirin 324 mg ONCE ONCE PO 09/18/18 09:15 09/18/18 09:16 DC 09/18/18 09:10 324 MG Balanced Salt Solution 15 ml ONCE ONCE IR 09/18/18 10:15 09/18/18 10:16 DC 09/18/18 10:51 15 ML Fluorescein Sodium 1 mg ONCE ONCE OU 09/18/18 10:15 09/18/18 10:16 DC 09/18/18 10:51 1 MG Nitroglycerin 0.4 mg UD PRN SL 09/18/18 09:15 09/18/18 11:12 DC 09/18/18 09:13 0.4 MG Tetracaine HCl 4 ml ONCE ONCE OU 09/18/18 10:15 09/18/18 10:16 DC 09/18/18 10:51 4 ML Vital Signs/I&O 09/18/18 10:58 Pulse 95 Resp 18 B/P (MAP) 161/91 (114) Pulse Ox 99 O2 Delivery Nasal Cannula O2 Flow Rate 3.00 Capillary Refill : Less Than 3 Seconds Progress Note #1: Time: 09:04 Progress Note Patient feels somewhat improved after DuoNeb treatment but still has some heaviness across her chest and occasional sharp chest pains. She reports the nitroglycerin given to her at dialysis was also somewhat helpful. She is still rather hypertensive. We will try nitroglycerin here and administer aspirin as well. Progress Note #2: Progress Note Patient's pain resolved after nitroglycerin. Case was discussed with Dr. Ghosh who suggested a repeat troponin. Repeat troponin was negative. We confirmed with the dialysis center that patient could still receive dialysis if she presented to the center in time. Patient was dismissed in time to get to dialysis. Dialysis was felt to be the most important treatment for her hypertension and therefore her chest pain as well. Patient denied having any inhaled treatments for COPD at home. An albuterol inhaler was prescribed. Patient also complained of left thigh pain and what, by description, seemed to be a resolving subconjunctival hemorrhage. Fluorescein exam was performed and revealed no abnormalities. Intraocular pressure was 20 mmHg. 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 ECG Initial ECG Impression Date: Sep 18, 2018 Initial ECG Impression Time: 08:03 Initial ECG Rate: 102 Initial ECG Rhythm: A Fib/Flutter Comment Rate controlled atrial fibrillation with no overt ST elevation or depression. Diagnostic Imaging Diagonstic Imaging: Xray Plain Films/CT/US/NM/MRI: chest Comments Chest x-ray viewed by me and report reviewed. See report below: NAME: DANELLE GAN [facility] REC#: [id number] PT STATUS: REG ER : 1950 PHYSICIAN: SONDRA POE MD ADMIT DATE: 09/18/18/ER Draft Date of Exam:09/18/18 CHEST 1 VIEW, AP/PA ONLY Portable erect AP chest at 835 hours. INDICATION: Shortness of breath. FINDINGS: The mild cardiomegaly noted on the prior exam of 12/05/2017 is again evident and no different. The central pulmonary vascularity is perhaps somewhat prominent, but there is no evidence for overt failure, pneumonia or pleural effusion. The mediastinum is not widened. The osseous structures are intact. The central venous catheter on the right seen previously has been removed without apparent complication. IMPRESSION: There is mild cardiomegaly and chronic pulmonary disease, but there is no evidence for an acute cardiopulmonary abnormality. Dictated on workstation # [id number] Dict: 09/18/18 0846 Trans: 09/18/18 0851 [id number] Interpreted by: RIKI APARICIO MD Departure Impression Primary Impression: Hypertensive urgency Additional Impressions: Dyspnea on exertion Chest pain Qualified Codes: R07.9 - Chest pain, unspecified COPD exacerbation Left eye pain Disposition: HOME, SELF-CARE Condition: Improved Departure-Patient Inst. Decision time for Depature: 10:45 [place] [facility] Primary Care Physician Patient Instructions: Chest Pain Add. Discharge Instructions: Presented directly to dialysis after leaving the hospital. Use your medications as previously prescribed. Follow-up with your proof tester as soon as possible. Please call today for a follow-up appointment. Follow-up with your primary care provider soon as possible. Return to the ER if you're having worsening symptoms. Follow-up with your eye doctor as soon as possible regarding your eye symptoms. Use your inhaler up to 4 puffs in a 4 hour period of time as needed for shortness of breath or wheezing. Discuss further treatment of your COPD with your doctor. All discharge instructions reviewed with patient and/or family. Voiced understanding. Scripts Albuterol Sulfate (PROAIR HFA) 1 Puff Puff 1-4 PUFF IH Q4H PRN for WHEEZING, #1 PUFF 1 PUFF = 90 MCG Prov: SONDRA POE MD 09/18/18 Copy Copies To 1: Kaden GHOSH MD Copies To 2: VERONICA LARIOS MD, JOSHUA T MD Sep 18, 2018 08:59
[2018-09-18] MEDS ORDERED: NITROGLYCERIN 0.4 MG SL TABS BTL 25'S SL PRN (09:15)
[2018-09-18] MEDS ORDERED: ASPIRIN 81 MG CHEW (CHILDREN'S ASA) PO ONE (09:15)
--- NOTE | 2018-09-18 10:06 | NUR ---
2ND [facility]S AND SENT TO LAB Addendum: 09/18/18 at 1018 by [email or web address] PATIENT REPORTS THAT HER L EYE HAS BEEN RED FOR [address] HENRY.
[2018-09-18] MEDS ORDERED: TETRACAINE 0.5% OPHTH SOLN 4 ML BTL (SINGLE DOSE ONLY) OU ONE (10:15)
[2018-09-18] MEDS ORDERED: FLUORESCEIN (FLUOR-I-STRIPS) 1 MG STRP OU ONE (10:15)
[2018-09-18] MEDS ORDERED: BSS 15 ML IR ONE (10:15)
--- NOTE | 2018-09-18 10:15 | NUR ---
BSC TAKEN TO BEDSIDE TO OBTAIN UA.
[2018-09-18 10:25] LABS: BILIRUBIN,URINE NEGATIVE (NEGATIVE); CLARITY,URINE CLEAR; COLOR,URINE YELLOW; GLUCOSE, URINE (UA) 1+ (NEGATIVE); KETONES,URINE NEGATIVE (NEGATIVE); LEUKOCYTE ESTERASE ,URINE 1+ (NEGATIVE); NITRITE,URINE NEGATIVE (NEGATIVE); PH,URINE 6.5 (5-9); PROTEIN,URINE 4+ (NEGATIVE); UROBILINOGEN,URINE NORMAL (NORMAL)
[2018-09-18 10:33] LABS: BACTERIA,URINE FEW /HPF
[2018-09-18 10:58] VITALS: BP 161/91
[2018-09-18] MEDS ORDERED: RT-ALBUINH IH (10:58)
--- NOTE | 2018-09-18 11:06 | NUR ---
ON DISCHARGE NIMISHA INFORMED TO GO TO DIALYSIS SHE WAS NOT SURE SHE WANTED TO GO WAS ADVISED BY THIS NURSE AND DR THAT SHE NEEDED TO GO
== END 2018-09-18 10:58 | disposition home or self-care (01) ==
LOC: EDUNIT# 07:28 → ER 07:29
DX: I16.0 Hypertensive urgency (principal); R06.09 Other forms of dyspnea; R07.9 Chest pain, unspecified; J44.1 Chronic obstructive pulmonary disease with (acute) exacerbation; H92.02 Otalgia, left ear; I48.91 Unspecified atrial fibrillation; I25.10 Atherosclerotic heart disease of native coronary artery without angina pectoris; E11.22 Type 2 diabetes mellitus with diabetic chronic kidney disease; I12.0 Hypertensive chronic kidney disease with stage 5 chronic kidney disease or end stage renal disease; N18.6 End stage renal disease; E66.01 Morbid (severe) obesity due to excess calories; M10.9 Gout, unspecified; E78.00 Pure hypercholesterolemia, unspecified; K21.9 Gastro-esophageal reflux disease without esophagitis; F32.9 Major depressive disorder, single episode, unspecified; Z86.010 Personal history of colon polyps; Z87.442 Personal history of urinary calculi; Z86.73 Personal history of transient ischemic attack (TIA), and cerebral infarction without residual deficits; Z99.2 Dependence on renal dialysis; Z82.49 Family history of ischemic heart disease and other diseases of the circulatory system; Z91.041 Radiographic dye allergy status; Z79.51 Long term (current) use of inhaled steroids; Z79.01 Long term (current) use of anticoagulants; Z79.4 Long term (current) use of insulin; Z98.890 Other specified postprocedural states
CPT/HCPCS: 36415; 71045; 80053; 81000; 83605; 83880; 84484; 85007; 85027; 85610; 85730; 86141; 87040; 87088; 87804; 93005; 93041

== ENCOUNTER 2018-12-01 19:34 | Outpatient (CLI) | payer MEDICARE, MEDICAID | END 2018-12-01 22:31 | disposition home or self-care (01) | LOC: SLEEP 19:34 | PROVIDERS: ATTEND Otolaryngology Otolaryngology/Facial Plastic Surgery | DX: G47.33 Obstructive sleep apnea (adult) (pediatric) (principal); R06.83 Snoring ==

== ENCOUNTER → 2020-12-21 | Outpatient (CLI) | payer MEDICARE, MEDICAID ==
[~2020-12-21] MED LIST changes: +AMLO-251 PO; -AMLO10TA7 PO; +ASPI-1238 PO; -ASPI-983 PO; +CLN.1T PO; -CLON0.1T PO; -METO-395 PO; +MTP100TCR PO; +NF-SODBICA PO; +OXYB5TAB13 PO; -OXYB5TAB9 PO; +SERT-414 PO; -SERT100T8 PO; -SODI650T PO
== END ==
LOC: RAD 13:44
PROVIDERS: ATTEND Nurse Practitioner Family
DX: Z53.9 Procedure and treatment not carried out, unspecified reason (principal); M25.512 Pain in left shoulder; M54.2 Cervicalgia